=== PATIENT | male | born 1940 | race Caucasian/White ===

== ENCOUNTER → 2016-08-11 | Outpatient (CLI) | payer MEDICARE ==
--- NOTE | 2016-08-11 13:28 | CT ---
EXAMINATION TYPE: CT abdomen pelvis wo con DATE OF EXAM: 08/11/2016 12:40 PM COMPARISON: 01/05/2015 HISTORY: 76-year-old male complains of episode of gross hematuria and passing [address] DLP: 1289 mGycm. Automated exposure control for dose reduction was used. TECHNIQUE: Contiguous axial scanning of the abdomen and pelvis without IV contrast. Coronal and sagit micaela reconstructions performed. FINDINGS: The heart is normal size without pericardial effusion. Coronary vessel calcifications are present and are remarkable for coronary artery disease. There is centrilobular emphysema and chronic interstitial changes redemonstrated at the lung bases. C hronic scarring in the inferior lingula. Lower descending thoracic aorta is ectatic at 2.6 cm. Noncontrast appearance of the liver, adrenal glands, right kidney, and pancreas show no gross abnorma lity. Ongoing splenomegaly now measuring 16.9 cm versus 16.7 cm, previously. In the left kidney, there are 4 nonobstructive calculi, largest measuring 5 mm. No hydronephrosis on either side or suspicious calcification along the course of either ureter. No dilated small bowel, free fluid, or free air. No mesenteric or retroperitoneal lymphadenopathy. Mild overall stool burden without pericolonic inflammatory change. 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 Moderate atherosclerotic changes throughout the abdominal aorta with mild aneurysm measuring up to 3. 1 cm, axial image 84 and sagittal image 68 not significantly changed from prior. 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 Bladder is urine distended. Lobulated enlargement of the prostate gland measuring up to 6.3 cm wide w ith posterior impression on the bladder base multiple surgical clips along the pelvic sidewall/iliac chains. No suspicious lymphadenopathy seen. Bones: Mild degenerative changes of the hips. Additional degenerated dextroconvex scoliosis of the gaby mbar spine. No osseous destructive process. IMPRESSION: 1. Nonobstructive left-sided nephrolithiasis measuring up to 5 mm. No hydronephrosis on either side. 2. Prostatomegaly (6.3 cm wide) with lobulated impression onto the posterior bladder base. Further c linical correlation recommended given patient's history of previous prostate cancer. Status post pelv ic lymph node dissection. 3. 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
== END | disposition home or self-care (01) ==
LOC: RADCTMAIN 10:53
PROVIDERS: ATTEND Urology
DX: N20.0 Calculus of kidney (principal); N40.1 Benign prostatic hyperplasia with lower urinary tract symptoms; R16.1 Splenomegaly, not elsewhere classified; Z85.46 Personal history of malignant neoplasm of prostate; Z98.890 Other specified postprocedural states
CPT/HCPCS: 74176; 82565; 84520

== ENCOUNTER → 2016-12-25 | Outpatient (CLI) | payer MEDICARE ==
--- NOTE | 2016-12-25 12:59 | CT ---
EXAMINATION TYPE: CT chest w con DATE OF EXAM: 12/25/2016 COMPARISON: Prior CT chest dated 12/05/2014 HISTORY: Shortness of breath with history of prostate cancer CT DLP: 744 mGycm Automated exposure control for dose reduction was used. CONTRAST: CT scan of the chest is performed with IV Contrast, patient injected with 50 mL of Visipaque 320. FINDINGS: LUNGS: There is extensive emphysematous change within the lungs. No endobronchial lesion, pleural or pericardial effusion. MEDIASTINUM: There are no greater than 1 cm hilar or mediastinal lymph nodes. There are coronary art toshia calcifications present. No pericardial effusion is seen. AORTA: No additional significant abnormality is seen. OTHER: Patient is post cholecystectomy. Suspect the spleen is enlarged IMPRESSION: Severe emphysema. Coronary artery disease. Splenomegaly. Noncontrast exam.
== END | disposition home or self-care (01) ==
LOC: RADCTMAIN 10:37
PROVIDERS: ATTEND Internal Medicine Critical Care Medicine
DX: J43.9 Emphysema, unspecified (principal); I25.10 Atherosclerotic heart disease of native coronary artery without angina pectoris; R16.1 Splenomegaly, not elsewhere classified
CPT/HCPCS: 82565; 84520; 71260; 36415; Q9967

== ENCOUNTER → 2017-07-13 | Outpatient (CLI) | payer MEDICARE | END | disposition home or self-care (01) | LOC: LABWHC1 15:36 | PROVIDERS: ATTEND Radiology Radiation Oncology | DX: C61 Malignant neoplasm of prostate (principal) | CPT/HCPCS: 36415; 84153 ==

== ENCOUNTER 2017-09-30 08:33 | Emergency (ER) | payer MEDICARE ==
[2017-09-30 08:37] VITALS: BP 174/73; PULSE 89; RESP 18; TEMP 97.5
[2017-09-30] MEDS ORDERED: HYDROcodone/APAP 5-325MG 1 EACH TAB PO STA (08:44)
--- NOTE | 2017-09-30 08:46 | ED ---
General Adult HPI - General Chief complaint: Back Pain/Injury Stated complaint: Rib Pain Time Seen by Provider: 09/30/17 08:39 Source: patient, family, RN notes reviewed Mode of arrival: wheelchair Limitations: no limitations - History of Present Illness Initial comments: Patient 77-year-old male presented emergency room today with chief complaint of injury to the right ribs. He admits that 2 days ago he was leaning over side of his boat to grab something and felt increased pain in the right side of the ribs. He states that since that time his had pain is worse with certain movements. He denies any shortness of breath. Denies any bruising to the area. States been using Aleve for the pain with little relief. Patient states having a difficult time sleeping at night due to pain. Patient denies any recent fever, chills, shortness of breath, chest pain, back pain, abdominal pain , nausea or vomiting, numbness or tingling, headaches or visual changes, or any other complaints. - Related Data Home Medications Medication Instructions Recorded Confirmed Atorvastatin [Lipitor] 10 mg PO HS 01/21/14 03/08/16 LORazepam [Ativan] 0.5 mg PO TID PRN 01/21/14 03/08/16 Sertraline [Zoloft] 25 mg PO HS 01/21/14 03/08/16 Vits A,C,E/Lutein/Minerals 1 tab PO DAILY 01/21/14 03/08/16 [Ocuvite with Lutein Tablet] amLODIPine [Norvasc] 10 mg PO DAILY 01/21/14 03/08/16 Naproxen Sodium [Aleve] 220 mg PO Q12HR PRN 12/06/14 03/08/16 [place]-3 Fatty Acids [[place]-3] 2,000 mg PO DAILY 12/06/14 03/08/16 Gabapentin [Neurontin] 100 mg PO BID 03/08/16 03/08/16 Metoprolol Succinate (ER) [Toprol 25 mg PO DAILY 03/08/16 03/08/16 Xl] Pantoprazole Sodium [Protonix] 40 mg PO DAILY 03/08/16 03/08/16 Previous Rx's Medication Instructions Recorded Hydrocodone/Acetaminophen [[place] 1 tab PO Q6HR PRN #25 tab 03/08/16 5-325] Hydrocodone/Acetaminophen [[place] 1 each PO Q6HR PRN #12 tab 09/30/17 5-325] Allergies Allergy/AdvReac Type Severity Reaction Status Date / Time No Known Allergies Allergy Verified 09/30/17 08:38 Review of Systems ROS Statement: Those systems with pertinent positive or pertinent negative responses have been documented in the HPI. ROS Other: All systems not noted in ROS Statement are negative. Past Medical History Past Medical History: Cancer, Chest Pain / Angina, COPD, Hearing Disorder / Deafness, Hyperlipidemia, Hypertension, Osteoarthritis (OA), Prostate Disorder, Pulmonary Embolus (PE) Additional Past Medical History / Comment(s): interstitial lung disease, pulmonary fibrosis, prostate cA, RECENT KIDNEY STONES, UNABLE TO WEAR CPAP, USES O2 @2L AT NIGHT History of Any Multi-Drug Resistant Organisms: None Reported Past Surgical History: Appendectomy, Cholecystectomy, Heart Catheterization, Hernia Repair, Joint Replacement, Orthopedic Surgery Additional Past Surgical History / Comment(s): LT HAND SURGERY- PARTIAL AMP. ON TWO FINGERS,. bilateral knee surgery, RT CATARACT, heart catheterizationx2, prostate biopsy, colonoscopy. ELBOW REPLACEMENTS Past Anesthesia/Blood Transfusion Reactions: No Reported Reaction Past Psychological History: Anxiety, Depression Smoking Status: Former smoker Past Alcohol Use History: None Reported Past Drug Use History: None Reported - Past Family History Brother(s) Family Medical History: Cancer Additional Family Medical History / Comment(s): ONE BROTHER HAD LUNG CA & ANOTHER HAD MELANOMA Mother Family Medical History: AICD/Pacemaker Father Family Medical History: No Reported History Sister(s) Family Medical History: No Reported History General Exam - General Exam Comments Initial Comments: General: The patient is awake and alert, in no distress, and does not appear acutely ill. Eye: Pupils are equal, round and reactive to light, extra-ocular movements are intact. No nystagmus. There is normal conjunctiva bilaterally. No signs of icterus. Ears, nose, mouth and throat: There are moist mucous membranes and no oral lesions. Neck: The neck is supple, there is no tenderness or JVD. Cardiovascular: There is a regular rate and rhythm. No murmur, rub or gallop is appreciated. Respiratory: Lungs are clear to auscultation, respirations are non-labored, breath sounds are equal. No wheezes, stridor, rales, or rhonchi. Gastrointestinal: Soft, non-distended, non-tender abdomen without masses or organomegaly noted. There is no rebound or guarding present. No CVA tenderness. Musculoskeletal: Patient has good range of motion. Patient no bruising over the right side of the ribs. Tender over the lateral aspect of right ribs on palpation. Strength 5/5. Sensation intact. Pulses equal bilaterally 2+. Neurological: A&O x 3. CN II-XII intact, There are no obvious motor or sensory deficits. Coordination appears grossly intact. Speech is normal. Skin: Skin is warm and dry and no rashes or lesions are noted. Psychiatric: Cooperative, appropriate mood & affect, normal judgment. Limitations: no limitations Course Vital Signs 09/30/17 08:34 Temperature 97.5 F L Pulse Rate 89 Respiratory 18 Rate Blood Pressure 174/73 O2 Sat by Pulse 95 Oximetry Medical Decision Making - Medical Decision Making Patient's x-ray reviewed does show fractured eighth rib. Results were discussed with the patient. Patient will be given a short prescription of [place] to go home with for pain. He is advised follow-up family doctor. Will be given incentive spirometer. Advised return if symptoms increase or worsen. Disposition Clinical Impression: Rib fracture Disposition: HOME SELF-CARE Condition: Good Instructions: Rib Fracture (ED) Additional Instructions: Please use medication as discussed. Please follow-up with family doctor in the next 2 days of symptoms have not improved. Please return to emergency room if the symptoms increase or worsen or for any other concerns. Prescriptions: Hydrocodone/Acetaminophen [[place] 5-325] 1 each PO Q6HR PRN #12 tab PRN Reason: Pain Is patient prescribed a controlled substance at d/c from ED?: Yes When asked, does pt state using other controlled substances?: No If prescribed controlled substance>3 days was MAPS reviewed?: Prescribed <3 Days If Rx opioid, was Start Talking consent form obtained?: Yes Referrals: Barrington Goyal Jr, DO [Primary Care Provider] - 1-2 days Time of Disposition: 09:30
--- NOTE | 2017-09-30 09:19 | XR ---
EXAMINATION TYPE: XR ribs RT w pa chest xray DATE OF EXAM: 09/30/2017 COMPARISON: NONE TECHNIQUE: Over the chest 5 views submitted submitted. HISTORY: Pain FINDINGS: The lungs are clear and there is no pneumothorax, pleural effusion, or focal pneumonia. Slight defo rmity of the anterior margin. IMPRESSION: 1. Growing for fracture anterior margin right eighth rib.
== END 2017-09-30 09:41 | disposition home or self-care (01) ==
LOC: EC 08:33
DX: S22.31XA Fracture of one rib, right side, initial encounter for closed fracture (principal); I20.9 Angina pectoris, unspecified; H91.90 Unspecified hearing loss, unspecified ear; E78.5 Hyperlipidemia, unspecified; I10 Essential (primary) hypertension; F41.9 Anxiety disorder, unspecified; F32.9 Major depressive disorder, single episode, unspecified; M19.90 Unspecified osteoarthritis, unspecified site; Z87.891 Personal history of nicotine dependence; Z86.711 Personal history of pulmonary embolism; Z85.46 Personal history of malignant neoplasm of prostate; Z90.49 Acquired absence of other specified parts of digestive tract; Z98.890 Other specified postprocedural states; Z79.899 Other long term (current) drug therapy; X58.XXXA Exposure to other specified factors, initial encounter; Y93.89 Activity, other specified
CPT/HCPCS: 99283

== ENCOUNTER → 2017-11-13 | Outpatient (CLI) | payer MEDICARE | END | disposition home or self-care (01) | LOC: LABWHC1 13:29 | PROVIDERS: ATTEND Radiology Radiation Oncology | DX: C61 Malignant neoplasm of prostate (principal) | CPT/HCPCS: 36415; 84153; 84403 ==

== ENCOUNTER → 2018-02-18 | Outpatient (CLI) | payer MEDICARE ==
[2018-02-18 16:30] LABS: LDL Cholesterol,Calculated 102.8 mg/dL (0.0-131.0); VLDL Calculation 21.2 mg/dL (5.00-40.00)
[2018-02-18 16:54] LABS: Prostate Specific Antigen 0.2 ng/mL (0.0-6.5)
== END ==
LOC: LABWHC1 08:36
PROVIDERS: ATTEND Radiology Radiation Oncology
DX: E78.5 Hyperlipidemia, unspecified (principal); C61 Malignant neoplasm of prostate
CPT/HCPCS: 36415; 80061; 84153; 84403

== ENCOUNTER → 2018-07-18 | Outpatient (CLI) | payer MEDICARE | END | disposition home or self-care (01) | LOC: LABWHC1 13:10 | PROVIDERS: ATTEND Radiology Radiation Oncology | DX: C61 Malignant neoplasm of prostate (principal); Z92.3 Personal history of irradiation | CPT/HCPCS: 36415; 84153 ==

== ENCOUNTER 2018-08-17 12:21 | Emergency (ER) | payer MEDICARE ==
--- NOTE | 2018-08-17 12:51 | ED ---
Extremity Problem HPI - General Chief complaint: Extremity Problem,Nontraumatic Stated complaint: LEFT ANKLE PAIN, BOTTOM OF FEET Time Seen by Provider: 08/17/18 12:32 Source: patient, RN notes reviewed, old records reviewed Mode of arrival: ambulatory Limitations: no limitations - History of Present Illness Initial comments: Patient is a 78-year-old male who presents emergency department today for evaluation for pain over bilateral feet, states that his Neurontin is not working for his general neuropathy. He also complains of a rash and significant tenderness to palpation over the left ankle. Patient states is due to some swelling has been worsening over the past 3 days. He saw his general practitioner and had x-ray of the ankle which was normal. He was discharged with some cream to apply over the rash site. He has had no blistering. He states that the rash started this week when he was trimming trees in his yard. He denies any known insect bites or exposure to poison oak or trees. Patient states that he feels like the skin is stretching. He does have a history of blood clots, not on blood thinners at this time. Patient denies any chest pain or shortness of breath. - Related Data Home Medications Medication Instructions Recorded Confirmed Atorvastatin [Lipitor] 10 mg PO HS 01/21/14 03/08/16 LORazepam [Ativan] 0.5 mg PO TID PRN 01/21/14 03/08/16 Sertraline [Zoloft] 25 mg PO HS 01/21/14 03/08/16 Vits A,C,E/Lutein/Minerals 1 tab PO DAILY 01/21/14 03/08/16 [Ocuvite with Lutein Tablet] amLODIPine [Norvasc] 10 mg PO DAILY 01/21/14 03/08/16 Naproxen Sodium [Aleve] 220 mg PO Q12HR PRN 12/06/14 03/08/16 [place]-3 Fatty Acids [[place]-3] 2,000 mg PO DAILY 12/06/14 03/08/16 Gabapentin [Neurontin] 100 mg PO BID 03/08/16 03/08/16 Metoprolol Succinate (ER) [Toprol 25 mg PO DAILY 03/08/16 03/08/16 Xl] Pantoprazole Sodium [Protonix] 40 mg PO DAILY 03/08/16 03/08/16 Previous Rx's Medication Instructions Recorded Hydrocodone/Acetaminophen [[place] 1 tab PO Q6HR PRN #25 tab 03/08/16 5-325] Hydrocodone/Acetaminophen [[place] 1 each PO Q6HR PRN #12 tab 09/30/17 5-325] Cephalexin [Keflex] 500 mg PO Q6HR 7 Days 08/17/18 Gabapentin [Neurontin] 300 mg PO BID #20 cap 08/17/18 HYDROcodone/APAP 5-325MG [[place] 1 tab PO Q6HR PRN #6 tab 08/17/18 5-325] Allergies Allergy/AdvReac Type Severity Reaction Status Date / Time No Known Allergies Allergy Verified 09/30/17 08:38 Review of Systems ROS Statement: Those systems with pertinent positive or pertinent negative responses have been documented in the HPI. ROS Other: All systems not noted in ROS Statement are negative. Past Medical History Past Medical History: Cancer, Chest Pain / Angina, COPD, Hearing Disorder / Deafness, Hyperlipidemia, Hypertension, Osteoarthritis (OA), Prostate Disorder, Pulmonary Embolus (PE) Additional Past Medical History / Comment(s): interstitial lung disease, pulmonary fibrosis, prostate cA, RECENT KIDNEY STONES, UNABLE TO WEAR CPAP, USES O2 @2L AT NIGHT History of Any Multi-Drug Resistant Organisms: None Reported Past Surgical History: Appendectomy, Cholecystectomy, Heart Catheterization, Hernia Repair, Joint Replacement, Orthopedic Surgery Additional Past Surgical History / Comment(s): LT HAND SURGERY- PARTIAL AMP. ON TWO FINGERS,. bilateral knee surgery, RT CATARACT, heart catheterizationx2, prostate biopsy, colonoscopy. ELBOW REPLACEMENTS Past Anesthesia/Blood Transfusion Reactions: No Reported Reaction Past Psychological History: Anxiety, Depression Smoking Status: Former smoker Past Alcohol Use History: None Reported Past Drug Use History: None Reported - Past Family History Brother(s) Family Medical History: Cancer Additional Family Medical History / Comment(s): ONE BROTHER HAD LUNG CA & ANOTHER HAD MELANOMA Mother Family Medical History: AICD/Pacemaker Father Family Medical History: No Reported History Sister(s) Family Medical History: No Reported History General Exam - General Exam Comments Initial Comments: This is a 78-year-old male. Alert and oriented. No significant distress. Limitations: no limitations General appearance: alert, in no apparent distress Head exam: Present: atraumatic, normocephalic, normal inspection Eye exam: Present: normal appearance, PERRL, EOMI. Absent: scleral icterus, conjunctival injection, periorbital swelling ENT exam: Present: normal exam, mucous membranes moist Neck exam: Present: normal inspection. Absent: tenderness, meningismus, lymphadenopathy Respiratory exam: Present: normal lung sounds bilaterally. Absent: respiratory distress, wheezes, rales, rhonchi, stridor Cardiovascular Exam: Present: regular rate, normal rhythm, normal heart sounds. Absent: systolic murmur, diastolic murmur, rubs, gallop, clicks GI/Abdominal exam: Present: soft, normal bowel sounds. Absent: distended, tenderness, guarding, rebound, rigid Left Lower Leg exam: Present: normal inspection, full ROM Ankle exam: Present: erythema (Patient has minimal erythema, no blistering noted over the anterior aspect of the ankle. Area measures 4 cm x 5 cm.). Absent: normal inspection Foot/Toe exam: Present: normal inspection, full ROM Neurovascular tendon exam: Present: no vascular compromise Gait: observed and normal Back exam: Present: normal inspection Neurological exam: Present: alert, oriented X3, CN II-XII intact Psychiatric exam: Present: normal affect, normal mood Course Vital Signs 08/17/18 08/17/18 12:22 14:01 Temperature 97.7 F 97.8 F Pulse Rate 95 88 Respiratory 18 16 Rate Blood Pressure 153/85 131/81 O2 Sat by Pulse 92 L 93 L Oximetry Medical Decision Making - Medical Decision Making This Patient is a 78-year-old male with history of diabetic neuropathy presents emergency with left ankle pain, redness irritation and swelling. He also complains of bilateral buttock see pain. Discussed that likely related to his neuropathy. Discussed increasing his gabapentin. Patient reports that he had some redness over the left ankle after trimming trees. There is no blisters or concern at this time for poison [place]. However Patient may have a superficial cellulitis with the area of redness. White blood cell count was mildly elevated 14,000. An ultrasound was negative for DVT. Patient was given a dose of IV to cover for cellulitis. We'll discharge the Patient with antibiotics for cellulitis and discussed increasing scalp. We'll discharge the Patient with a starter pack of Tylenol codeine. Discussed he needs follow-up with his primary care doctor on Sunday for reevaluation. All questions answered. - Lab Data Result diagrams: 08/17/18 13:01 05/04/19 13:01 Lab Results 08/17/18 08/17/18 Range/Units 13:01 13:01 WBC 14.5 H (3.8-10.6) k/uL RBC 5.05 (4.30-5.90) m/uL Hgb 15.1 (13.0-17.5) gm/dL Hct 44.0 (39.0-53.0) % MCV 87.1 (80.0-100.0) fL MCH 29.9 (25.0-35.0) pg MCHC 34.3 (31.0-37.0) g/dL RDW 17.8 H (11.5-15.5) % Plt Count 436 (150-450) k/uL Neutrophils % 80 % Lymphocytes % 10 % Monocytes % 4 % Eosinophils % 3 % Basophils % 1 % Neutrophils # 11.6 H (1.3-7.7) k/uL Lymphocytes # 1.4 (1.0-4.8) k/uL Monocytes # 0.5 (0-1.0) k/uL Eosinophils # 0.4 (0-0.7) k/uL Basophils # 0.2 (0-0.2) k/uL Poikilocytosis Slight Anisocytosis Slight Sodium 144 (137-145) mmol/L Potassium 4.9 (3.5-5.1) mmol/L Chloride 109 H (98-107) mmol/L Carbon Dioxide 29 (22-30) mmol/L Anion Gap 6 mmol/L BUN 33 H (9-20) mg/dL Creatinine 1.66 H (0.66-1.25) mg/dL Est GFR (CKD-EPI)AfAm 45 (>60 ml/min/1.73 sqM) Est GFR (CKD-EPI)NonAf 39 (>60 ml/min/1.73 sqM) Glucose 89 (74-99) mg/dL Calcium 9.6 (8.4-10.2) mg/dL Total Bilirubin 1.4 H (0.2-1.3) mg/dL AST 43 (17-59) U/L ALT 57 (21-72) U/L Alkaline Phosphatase 144 H (38-126) U/L Total Protein 6.9 (6.3-8.2) g/dL Albumin 4.4 (3.5-5.0) g/dL - Radiology Data Radiology results: report reviewed Ultrasound is negative for DVT in the left leg. Disposition Clinical Impression: Cellulitis of left ankle, Neuropathy Disposition: HOME SELF-CARE Condition: Good Instructions (If sedation given, give patient instructions): Diabetic Peripheral Neuropathy (ED), Cellulitis (ED) Additional Instructions: Patient has acute the feet up and elevated. Take the medications as prescribed. Return to emergency department if any alarming signs or symptoms occur. Prescriptions: Cephalexin [Keflex] 500 mg PO Q6HR 7 Days Gabapentin [Neurontin] 300 mg PO BID #20 cap HYDROcodone/APAP 5-325MG [[place] 5-325] 1 tab PO Q6HR PRN #6 tab PRN Reason: Pain Is patient prescribed a controlled substance at d/c from ED?: Yes If prescribed controlled substance>3 days was MAPS reviewed?: Prescribed <3 Days If opioid is for acute pain is fill amount 7 days or less?: Yes If Rx opioid, was Start Talking consent form obtained?: Yes Referrals: Barrington Goyal Jr, [Primary Care Provider] - 1-2 days Time of Disposition: 14:20
[2018-08-17 13:13] LABS: Anisocytosis Slight; Basophils # (A) 0.2 k/uL (0-0.2); Basophils % (A) 1 %; Eosinophils # (A) 0.4 k/uL (0-0.7); Eosinophils % (A) 3 %; HGB 15.1 gm/dL (13.0-17.5); Lymphocytes # (A) 1.4 k/uL (1.0-4.8); Lymphocytes % (A) 10 %; MCH 29.9 pg (25.0-35.0); MCHC 34.3 g/dL (31.0-37.0); MCV 87.1 fL (80.0-100.0); Mean Platelet Volume 9.5; Monocytes # (A) 0.5 k/uL (0-1.0); Monocytes % (A) 4 %; Neutrophils # (A) 11.6 k/uL (1.3-7.7); Neutrophils % (A) 80 %; Platelet Count 436 k/uL (150-450); Poikilocytosis Slight; RBC 5.05 m/uL (4.30-5.90); RDW 17.8 % (11.5-15.5); WBC 14.5 k/uL (3.8-10.6)
[2018-08-17 13:22] LABS: Albumin 4.4 g/dL (3.5-5.0); Calcium 9.6 mg/dL (8.4-10.2); Potassium 4.9 mmol/L (3.5-5.1); Total Bilirubin 1.4 mg/dL (0.2-1.3); Total Protein 6.9 g/dL (6.3-8.2)
--- NOTE | 2018-08-17 13:46 | US ---
EXAMINATION TYPE: US venous doppler duplex LE LT DATE OF EXAM: 08/17/2018 1:35 PM COMPARISON: NONE CLINICAL HISTORY: Pain. Left lateral leg pain, and bottom of left foot pain. SIDE PERFORMED: Left TECHNIQUE: The lower extremity deep venous system is examined utilizing real time linear array sonog sergio with graded compression, doppler sonography and color-flow sonography. VESSELS IMAGED: External Iliac Vein (EIV) Common Femoral Vein Deep Femoral Vein Greater Saphenous Vein * Femoral Vein Popliteal Vein Small Saphenous Vein * Proximal Calf Veins (* superficial vessels) Left Leg: Negative for DVT No popliteal fossa lesion is seen. IMPRESSION: THIS EXAMINATION IS NEGATIVE FOR DVT IN THE LEFT LEG.
[2018-08-17] MEDS ORDERED: HYDROcodone/APAP 10-325MG 1 EACH TAB PO ONE (14:02)
[2018-08-17 14:03] VITALS: PULSE 88; RESP 16
[2018-08-17] MEDS ORDERED: ceFAZolin IN SWFI 2 GM/20 ML SYRINGE IVP STA (14:19)
[2018-08-17 15:27] VITALS: BP 134/82; TEMP 98
== END 2018-08-17 15:20 | disposition home or self-care (01) ==
LOC: EC 12:21
DX: L03.116 Cellulitis of left lower limb (principal); G62.9 Polyneuropathy, unspecified; D72.829 Elevated white blood cell count, unspecified; E78.5 Hyperlipidemia, unspecified; I10 Essential (primary) hypertension; M19.90 Unspecified osteoarthritis, unspecified site; F41.9 Anxiety disorder, unspecified; F32.9 Major depressive disorder, single episode, unspecified; Z85.46 Personal history of malignant neoplasm of prostate; Z87.891 Personal history of nicotine dependence; Z95.818 Presence of other cardiac implants and grafts; Z96.89 Presence of other specified functional implants; Z79.899 Other long term (current) drug therapy
CPT/HCPCS: 36415; 80053; 85025; 93971; 99284; 96374; J0690

== ENCOUNTER 2018-08-19 04:00 | Emergency (ER) | payer MEDICARE ==
--- NOTE | 2018-08-19 04:15 | ED ---
Abdominal Pain HPI - General Chief Complaint: Abdominal Pain Stated Complaint: Abdominal Pain Time Seen by Provider: 08/19/18 04:13 Source: patient, family Mode of arrival: ambulatory Limitations: no limitations - History of Present Illness Initial Comments: Resulted is a 78-year-old gentleman who presents to the emergency department today for evaluation of abdominal cramping. Patient reports that he occasionally has abdominal cramping which usually resolves that he drinks of baking soda and water. Patient was seen and evaluated in our hospital earlier in the week and diagnosed with a cellulitis of the lower extremities. He is currently taking Keflex. Patient reports that he woke up tonight and was having some crampy abdominal pain similar to previous episodes, he drinks of baking soda water but the cramping continued he then read the side effects of the antibiotics and read that if there is any abdominal pain he should be evaluated so he decided to come the hospital. Patient reports that by the time he arrived in the hospital his pain has improved significantly he is now resting much more comfortably. - Related Data Home Medications Medication Instructions Recorded Confirmed LORazepam [Ativan] 0.5 mg PO TID PRN 01/21/14 08/20/18 Sertraline [Zoloft] 25 mg PO HS 01/21/14 08/20/18 Vits A,C,E/Lutein/Minerals 1 tab PO DAILY 01/21/14 08/20/18 [Ocuvite with Lutein Tablet] amLODIPine [Norvasc] 10 mg PO DAILY 01/21/14 08/20/18 Gabapentin [Neurontin] 100 mg PO QID 03/08/16 08/20/18 Metoprolol Succinate (ER) [Toprol 25 mg PO DAILY 03/08/16 08/20/18 Xl] Pantoprazole Sodium [Protonix] 40 mg PO DAILY 03/08/16 08/20/18 Pravastatin Sodium [Pravachol] 20 mg PO DAILY 08/20/18 08/20/18 Previous Rx's Medication Instructions Recorded Cephalexin [Keflex] 500 mg PO Q6HR 7 Days 08/17/18 Allergies Allergy/AdvReac Type Severity Reaction Status Date / Time No Known Allergies Allergy Verified 08/20/18 09:29 Review of Systems ROS Statement: Those systems with pertinent positive or pertinent negative responses have been documented in the HPI. ROS Other: All systems not noted in ROS Statement are negative. Past Medical History Past Medical History: Cancer, Chest Pain / Angina, COPD, Hearing Disorder / Deafness, Hyperlipidemia, Hypertension, Osteoarthritis (OA), Prostate Disorder, Pulmonary Embolus (PE) Additional Past Medical History / Comment(s): interstitial lung disease, pulmonary fibrosis, prostate cA, RECENT KIDNEY STONES, UNABLE TO WEAR CPAP, USES O2 @2L AT NIGHT History of Any Multi-Drug Resistant Organisms: None Reported Past Surgical History: Appendectomy, Cholecystectomy, Heart Catheterization, Hernia Repair, Joint Replacement, Orthopedic Surgery Additional Past Surgical History / Comment(s): LT HAND SURGERY- PARTIAL AMP. ON TWO FINGERS,. bilateral knee surgery, RT CATARACT, heart catheterizationx2, prostate biopsy, colonoscopy. ELBOW REPLACEMENTS Past Anesthesia/Blood Transfusion Reactions: No Reported Reaction Past Psychological History: Anxiety, Depression Smoking Status: Former smoker Past Alcohol Use History: None Reported Past Drug Use History: None Reported - Past Family History Brother(s) Family Medical History: Cancer Additional Family Medical History / Comment(s): ONE BROTHER HAD LUNG CA & ANOTHER HAD MELANOMA Mother Family Medical History: AICD/Pacemaker Father Family Medical History: No Reported History Sister(s) Family Medical History: No Reported History General Exam - General Exam Comments Initial Comments: Physical Exam GENERAL: Patient is well-developed and well-nourished, obese gentleman Patient is nontoxic and well-hydrated and is in no distress. HENT: Normocephalic, Atraumatic. EYES: PERRL, EOMI PULMONARY: Unlabored respirations. No audible rales rhonchi or wheezing was noted. CARDIOVASCULAR: RRR ABDOMEN: Soft and nontender with normal bowel sounds. No tenderness to deep palpation in all 4 quadrants SKIN: Improving cellulitis on left lower extremity : Deferred NEUROLOGIC: Patient is alert and oriented x3. Moving all extremities spontaneously MUSCULOSKELETAL: Normal extremities with adequate strength and full range of motion. No lower extremity swelling or edema. No calf tenderness. PSYCHIATRIC: Normal psychiatric evaluation. Limitations: no limitations Course Vital Signs 08/19/18 08/19/18 08/19/18 04:03 06:07 07:11 Temperature 97.6 F 97.8 F Pulse Rate 96 83 96 Respiratory 18 16 18 Rate Blood Pressure 158/91 150/81 145/82 O2 Sat by Pulse 98 100 94 L Oximetry Medical Decision Making - Medical Decision Making The patient was seen and evaluated, history was obtained from the patient and t he and review of medical record This is a 78-year-old gentleman who presents today for evaluation of cramping abdominal pain that lasted approximately an hour and resolved prior to arrival Patient was concerned because he is currently on antibiotics and was worried that the abdominal cramping may be related to the antibiotics Patient is awake alert oriented hemodynamically stable in no acute distress Labs and imaging were ordered Labs with leukocytosis with a white count of 11.5 slightly related to cellulitis of the lower extremity Patient's resting comfortably at this time, he has been pain-free during his stay and would like to be discharged home at this time. - Lab Data Result diagrams: 08/19/18 04:20 08/19/18 04:20 Lab Results 08/19/18 08/19/18 08/19/18 Range/Units 04:20 04:20 05:50 WBC 11.5 H (3.8-10.6) k/uL RBC 5.25 (4.30-5.90) m/uL Hgb 15.4 (13.0-17.5) gm/dL Hct 45.5 (39.0-53.0) % MCV 86.5 (80.0-100.0) fL MCH 29.3 (25.0-35.0) pg MCHC 33.9 (31.0-37.0) g/dL RDW 18.6 H (11.5-15.5) % Plt Count 454 H (150-450) k/uL Neutrophils % 76 % Lymphocytes % 14 % Monocytes % 3 % Eosinophils % 3 % Basophils % 1 % Neutrophils # 8.8 H (1.3-7.7) k/uL Lymphocytes # 1.6 (1.0-4.8) k/uL Monocytes # 0.4 (0-1.0) k/uL Eosinophils # 0.3 (0-0.7) k/uL Basophils # 0.2 (0-0.2) k/uL Hyperchromasia Slight Poikilocytosis Moderate Anisocytosis Slight Sodium 142 (137-145) mmol/L Potassium 4.6 (3.5-5.1) mmol/L Chloride 106 (98-107) mmol/L Carbon Dioxide 29 (22-30) mmol/L Anion Gap 7 mmol/L BUN 36 H (9-20) mg/dL Creatinine 1.76 H (0.66-1.25) mg/dL Est GFR (CKD-EPI)AfAm 42 (>60 ml/min/1.73 sqM) Est GFR (CKD-EPI)NonAf 37 (>60 ml/min/1.73 sqM) Glucose 119 H (74-99) mg/dL Calcium 9.6 (8.4-10.2) mg/dL Total Bilirubin 1.3 (0.2-1.3) mg/dL AST 40 (17-59) U/L ALT 49 (21-72) U/L Alkaline Phosphatase 152 H (38-126) U/L Total Protein 7.0 (6.3-8.2) g/dL Albumin 4.4 (3.5-5.0) g/dL Amylase 82 (30-110) U/L Lipase 104 (23-300) U/L Urine Color Yellow Urine Appearance Clear (Clear) Urine pH 6.0 (5.0-8.0) Ur Specific [place] 1.016 (1.001-1.035) Urine Protein 1+ H (Negative) Urine Glucose (UA) Negative (Negative) Urine Ketones Negative (Negative) Urine Blood Negative (Negative) Urine Nitrite Negative (Negative) Urine Bilirubin Negative (Negative) Urine Urobilinogen <2.0 (<2.0) mg/dL Ur Leukocyte Esterase Negative (Negative) Urine RBC 2 (0-5) /hpf Urine WBC 1 (0-5) /hpf Urine Mucus Rare H (None) /hpf Disposition Clinical Impression: Abdominal pain Disposition: HOME SELF-CARE Condition: Stable Instructions (If sedation given, give patient instructions): Abdominal Pain (ED) Is patient prescribed a controlled substance at d/c from ED?: No Referrals: Barrington Goyal Jr, DO [Primary Care Provider] - 1-2 days
[2018-08-19 04:45] LABS: Anisocytosis Slight; Basophils # (A) 0.2 k/uL (0-0.2); Basophils % (A) 1 %; Eosinophils # (A) 0.3 k/uL (0-0.7); Eosinophils % (A) 3 %; HCT 45.5 % (39.0-53.0); HGB 15.4 gm/dL (13.0-17.5); Hyperchromasia Slight; Lymphocytes # (A) 1.6 k/uL (1.0-4.8); Lymphocytes % (A) 14 %; MCH 29.3 pg (25.0-35.0); MCHC 33.9 g/dL (31.0-37.0); MCV 86.5 fL (80.0-100.0); Mean Platelet Volume 9.3; Monocytes # (A) 0.4 k/uL (0-1.0); Monocytes % (A) 3 %; Neutrophils # (A) 8.8 k/uL (1.3-7.7); Neutrophils % (A) 76 %; Platelet Count 454 k/uL (150-450); Poikilocytosis Moderate; RBC 5.25 m/uL (4.30-5.90); RDW 18.6 % (11.5-15.5); WBC 11.5 k/uL (3.8-10.6)
--- NOTE | 2018-08-19 05:02 | XR ---
EXAM: XR Abdomen, 2 Views CLINICAL HISTORY: ITS.REASON XR Reason: abdominal pain TECHNIQUE: Frontal view of the abdomen/pelvis with upright view of the abdomen. COMPARISON: No relevant prior studies available. IMPRESSION: No bowel obstruction. No free air. Mild dextroscoliosis. Multiple clips in the pelvis.
[2018-08-19 05:04] LABS: Albumin 4.4 g/dL (3.5-5.0); Calcium 9.6 mg/dL (8.4-10.2); Potassium 4.6 mmol/L (3.5-5.1); Total Bilirubin 1.3 mg/dL (0.2-1.3)
[2018-08-19 06:25] LABS: Appearance,Urine Clear (Clear); Bilirubin,Urine Negative (Negative); Blood,Urine Negative (Negative); Color,Urine Yellow; Glucose,Urine (UA) Negative (Negative); Ketones,Urine Negative (Negative); Leukocyte Esterase,Urine Negative (Negative); Mucus,Urine Rare /hpf; Nitrite,Urine Negative (Negative); Protein,Urine 1+ (Negative); RBC,Urine 2 /hpf (0-5); Specific Gravity,Urine 1.016 (1.001-1.035); Urobilinogen,Urine <2.0 mg/dL (<2.0); WBC,Urine 1 /hpf (0-5)
[2018-08-19 07:13] VITALS: BP 145/82; PULSE 96; RESP 18; TEMP 97.8
--- NOTE | 2018-08-21 01:33 | CDI ---
Documentation Clarification OP Dear Floresita SIMPSON, DO Please do addendum to ED report for missing HPI and Physical examination. Thank you, Sigrid Ann Calciner Operator Helper If you have any questions, please contact Hot Top Liner Helper at [phone] [facility]
== END 2018-08-19 07:12 | disposition home or self-care (01) ==
LOC: EC 04:00
DX: D72.829 Elevated white blood cell count, unspecified (principal); L03.115 Cellulitis of right lower limb; L03.116 Cellulitis of left lower limb; E78.5 Hyperlipidemia, unspecified; I10 Essential (primary) hypertension; M19.90 Unspecified osteoarthritis, unspecified site; F41.9 Anxiety disorder, unspecified; F32.9 Major depressive disorder, single episode, unspecified; Z87.442 Personal history of urinary calculi; Z95.818 Presence of other cardiac implants and grafts; Z96.629 Presence of unspecified artificial elbow joint; Z85.46 Personal history of malignant neoplasm of prostate; Z90.49 Acquired absence of other specified parts of digestive tract; Z87.891 Personal history of nicotine dependence; Z79.899 Other long term (current) drug therapy
CPT/HCPCS: 36415; 74018; 80053; 81001; 82150; 83690; 85025; 99284

== ENCOUNTER 2018-08-20 09:19 | Inpatient (IN) | payer MEDICARE ==
[2018-08-20] MEDS ORDERED: ONDANSETRON 4 MG/2 ML VIAL IVP STA (09:37)
[2018-08-20] MEDS ORDERED: MORPHINE SULFATE 4 MG/ML SYRINGE IV STA (09:37)
--- NOTE | 2018-08-20 09:42 | ED ---
General Adult HPI <Eber Abraham - Last Filed: 08/20/18 10:43> - General Source: patient, RN notes reviewed Mode of arrival: ambulatory <Cabrera Sharif - Last Filed: 08/20/18 10:46> - General Chief complaint: Abdominal Pain Stated complaint: Poss kidney stone Time Seen by Provider: 08/20/18 09:32 - History of Present Illness Initial comments: Patient 78-year-old male presented to the emergency room today with chief complaint of left-sided abdominal pain. Patient does not that he feels pain radiating down into left groin. Patient does admit to history of kidney stones presents unable to state if this is the same pain that is had in the past. Patient does admit that the pain started 3 days ago. Has been seen here in the emergency room twice for the same complaint. States that they did obtain x-rays just but did not see any abnormality. Patient states he felt well yesterday when he was discharged home. States she's had normal bowel movements. Doesn't feeling some nausea and has had no vomiting. Patient denies any other complaints or symptoms at this time. Patient denies any recent fever, chills, shortness of breath, chest pain, back pain, dysuria or hematuria, constipation or diarrhea, headaches or visual changes, or any other complaints. (Cabrera Sharif) - Related Data Home Medications Medication Instructions Recorded Confirmed LORazepam [Ativan] 0.5 mg PO TID PRN 01/21/14 08/20/18 Sertraline [Zoloft] 25 mg PO HS 01/21/14 08/20/18 Vits A,C,E/Lutein/Minerals 1 tab PO DAILY 01/21/14 08/20/18 [Ocuvite with Lutein Tablet] amLODIPine [Norvasc] 10 mg PO DAILY 01/21/14 08/20/18 Gabapentin [Neurontin] 100 mg PO QID 03/08/16 08/20/18 Metoprolol Succinate (ER) [Toprol 25 mg PO DAILY 03/08/16 08/20/18 Xl] Pantoprazole Sodium [Protonix] 40 mg PO DAILY 03/08/16 08/20/18 Pravastatin Sodium [Pravachol] 20 mg PO DAILY 08/20/18 08/20/18 Previous Rx's Medication Instructions Recorded Cephalexin [Keflex] 500 mg PO Q6HR 7 Days 08/17/18 Allergies Allergy/AdvReac Type Severity Reaction Status Date / Time No Known Allergies Allergy Verified 08/20/18 09:29 Review of Systems ROS Other: All systems not noted in ROS Statement are negative. <Eber Abraham - Last Filed: 08/20/18 10:43> ROS Other: All systems not noted in ROS Statement are negative. <Cabrera Sharif - Last Filed: 08/20/18 10:46> ROS Statement: Those systems with pertinent positive or pertinent negative responses have been documented in the HPI. Past Medical History Past Medical History: Cancer, Chest Pain / Angina, COPD, Hearing Disorder / Deafness, Hyperlipidemia, Hypertension, Osteoarthritis (OA), Prostate Disorder, Pulmonary Embolus (PE) Additional Past Medical History / Comment(s): interstitial lung disease, pulmonary fibrosis, prostate cA, RECENT KIDNEY STONES, UNABLE TO WEAR CPAP, USES O2 @2L AT NIGHT History of Any Multi-Drug Resistant Organisms: None Reported Past Surgical History: Appendectomy, Cholecystectomy, Heart Catheterization, H ernia Repair, Joint Replacement, Orthopedic Surgery Additional Past Surgical History / Comment(s): LT HAND SURGERY- PARTIAL AMP. ON TWO FINGERS,. bilateral knee surgery, RT CATARACT, heart catheterizationx2, prostate biopsy, colonoscopy. ELBOW REPLACEMENTS Past Anesthesia/Blood Transfusion Reactions: No Reported Reaction Past Psychological History: Anxiety, Depression Smoking Status: Former smoker Past Alcohol Use History: None Reported Past Drug Use History: None Reported - Past Family History Brother(s) Family Medical History: Cancer Additional Family Medical History / Comment(s): ONE BROTHER HAD LUNG CA & ANOTHER HAD MELANOMA Mother Family Medical History: AICD/Pacemaker Father Family Medical History: No Reported History Sister(s) Family Medical History: No Reported History <Cabrera Sharif - Last Filed: 08/20/18 10:46> General Exam <Cabrera Sharif - Last Filed: 08/20/18 10:46> - General Exam Comments Initial Comments: General: The patient is awake and alert, in no distress, and does not appear acutely ill. Eye: There is normal conjunctiva bilaterally. No signs of icterus. Ears, nose, mouth and throat: There are moist mucous membranes and no oral lesions. Neck: The neck is supple, there is no tenderness or JVD. Cardiovascular: There is a regular rate and rhythm. No murmur, rub or gallop is appreciated. Respiratory: Lungs are clear to auscultation, respirations are non-labored, br eath sounds are equal. No wheezes, stridor, rales, or rhonchi. Gastrointestinal: Admits soft on palpation. Patient does have tenderness to left lower quadrant. No rebound, guarding. Musculoskeletal: Normal ROM, no tenderness. Strength 5/5. Sensation intact. Radial Pulses equal bilaterally 2+. Neurological: A&O x 3. CN II-XII intact, There are no obvious motor or sensory deficits. Coordination appears grossly intact. Speech is normal. Skin: Skin is warm and dry and no rashes or lesions are noted. Psychiatric: Cooperative, appropriate mood & affect, normal judgment. (Cabrera Sharif) Course Vital Signs 08/20/18 09:21 Temperature 97.5 F L Pulse Rate 105 H Respiratory 24 Rate Blood Pressure 156/74 O2 Sat by Pulse 98 Oximetry Medical Decision Making - Lab Data Result diagrams: 08/20/18 09:40 08/20/18 09:40 <Eber Abraham - Last Filed: 08/20/18 10:43> - Lab Data Result diagrams: 08/20/18 09:40 08/20/18 09:40 <Cabrera Sharif - Last Filed: 08/20/18 10:46> - Medical Decision Making Patient reexamined and reevaluated by myself, Dr. Abraham. Patient is complaining of discomfort and does have moderate tenderness left lower flank region. Results reviewed. I do agree with PA findings. This includes all diagnostic interpretation and treatment plan. Case was discussed with Dr. Tay, who will admit his patient. He does recommend Ancef and nothing by mouth after midnight. (Eber Abraham) - Lab Data Lab Results 08/20/18 08/20/18 Range/Units 09:40 09:40 WBC 17.8 H (3.8-10.6) k/uL RBC 5.42 (4.30-5.90) m/uL Hgb 15.8 (13.0-17.5) gm/dL Hct 46.4 (39.0-53.0) % MCV 85.6 (80.0-100.0) fL MCH 29.2 (25.0-35.0) pg MCHC 34.1 (31.0-37.0) g/dL RDW 18.5 H (11.5-15.5) % Plt Count 552 H (150-450) k/uL Neutrophils % 83 % Lymphocytes % 9 % Monocytes % 3 % Eosinophils % 2 % Basophils % 1 % Neutrophils # 14.7 H (1.3-7.7) k/uL Lymphocytes # 1.6 (1.0-4.8) k/uL Monocytes # 0.5 (0-1.0) k/uL Eosinophils # 0.4 (0-0.7) k/uL Basophils # 0.2 (0-0.2) k/uL Hyperchromasia Slight Poikilocytosis Slight Anisocytosis Slight Sodium 143 (137-145) mmol/L Potassium 4.8 (3.5-5.1) mmol/L Chloride 106 (98-107) mmol/L Carbon Dioxide 29 (22-30) mmol/L Anion Gap 8 mmol/L BUN 38 H (9-20) mg/dL Creatinine 1.74 H (0.66-1.25) mg/dL Est GFR (CKD-EPI)AfAm 43 (>60 ml/min/1.73 sqM) Est GFR (CKD-EPI)NonAf 37 (>60 ml/min/1.73 sqM) Glucose 124 H (74-99) mg/dL Calcium 9.7 (8.4-10.2) mg/dL Total Bilirubin 1.5 H (0.2-1.3) mg/dL AST 65 H (17-59) U/L ALT 80 H (21-72) U/L Alkaline Phosphatase 161 H (38-126) U/L Total Protein 7.4 (6.3-8.2) g/dL Albumin 4.7 (3.5-5.0) g/dL Amylase 65 (30-110) U/L Lipase 64 (23-300) U/L Disposition <Eber Abraham - Last Filed: 08/20/18 10:43> Is patient prescribed a controlled substance at d/c from ED?: No Time of Disposition: 10:46 <Cabrera Sharif - Last Filed: 08/20/18 10:46> Clinical Impression: Kidney stone Disposition: ADMITTED IP TO THIS HOSP Condition: Stable Referrals: Barrington Goyal Jr, [Primary Care Provider] - 1-2 days
[2018-08-20] MEDS: SODIUM CHLORIDE 0.9% 1,000 ML IV STA (09:45)
[2018-08-20 10:13] LABS: Anisocytosis Slight; Basophils # (A) 0.2 k/uL (0-0.2); Basophils % (A) 1 %; Eosinophils # (A) 0.4 k/uL (0-0.7); Eosinophils % (A) 2 %; HCT 46.4 % (39.0-53.0); HGB 15.8 gm/dL (13.0-17.5); Hyperchromasia Slight; Lymphocytes # (A) 1.6 k/uL (1.0-4.8); Lymphocytes % (A) 9 %; MCH 29.2 pg (25.0-35.0); MCHC 34.1 g/dL (31.0-37.0); MCV 85.6 fL (80.0-100.0); Mean Platelet Volume 9.4; Monocytes # (A) 0.5 k/uL (0-1.0); Monocytes % (A) 3 %; Neutrophils # (A) 14.7 k/uL (1.3-7.7); Neutrophils % (A) 83 %; Platelet Count 552 k/uL (150-450); Poikilocytosis Slight; RBC 5.42 m/uL (4.30-5.90); RDW 18.5 % (11.5-15.5); WBC 17.8 k/uL (3.8-10.6)
[2018-08-20 10:14] LABS: Albumin 4.7 g/dL (3.5-5.0); Calcium 9.7 mg/dL (8.4-10.2); Potassium 4.8 mmol/L (3.5-5.1); Total Bilirubin 1.5 mg/dL (0.2-1.3); Total Protein 7.4 g/dL (6.3-8.2)
--- NOTE | 2018-08-20 10:23 | CT ---
EXAMINATION TYPE: CT abdomen pelvis wo con DATE OF EXAM: 08/20/2018 COMPARISON: 08/11/2016 HISTORY: 78-year-old male left lower quadrant pain with nausea. CT DLP: 996.4 mGycm. Automated exposure control for dose reduction was used. TECHNIQUE: Contiguous axial scanning of the abdomen and pelvis without IV contrast. Coronal and sagit micaela reconstructions performed. FINDINGS: Heart upper limits of normal in size without pericardial effusion. Coronary vessel calcifications are present. Emphysematous changes in the lower lungs with some mild bibasilar bronchiectasis. Ectatic lower descending thoracic aorta 2.9 cm. Moderate arthroscopic calcifications abdominal aorta with distal AAA and 3.6 cm versus 3.5 cm, previously. Left common iliac artery measures 1.8 cm versus 1.7 cm, previously. Right common iliac artery measures 1.9 cm, unchanged. Noncontrast appearance of the liver, adrenal glands, and pancreas show no gross abnormality. Gallbladder surgically absent. Ectatic cystic duct. Splenomegaly at 18.2 cm, increased from 16.9 cm, previously. Nonobstructive 3 mm right lower pole renal calculus. Punctate 2 mm calculi are present in the left ki dney. There is [id number]-[id number] left-sided hydronephrosis with a 5 mm calculus at the distal left ure ter. Moderate extravasating fluid is present along the left retroperitoneum tracking up to the level of the kidney and down to the iliac bifurcation with some fluid crossing the midline as well. No dilated small bowel or free air. Mild stool burden. No pericolonic inflammatory change. Moderate circumferential bladder wall thickening with mild surrounding fat stranding. Prostate gland enlargement 5.8 cm wide. Prior pelvic lymph node dissection. Bones: Mild degenerative changes at the hips. Facet arthropathy lower lumbar spine. Degenerated dextr oconvex scoliosis. Grade 1 retrolisthesis at L2-L3 and L3-L4. IMPRESSION: 1. A 5 mm calculus at the distal left ureter with obstructive uropathy. There is moderate extravasati ng fluid within the left retroperitoneum concentrated primarily along the level of the mid ureter sug gesting ureteral rupture and urine leak. 2. Slight progression of splenic megaly at 18.2 cm versus 16.9 cm, previously. 3. AAA at 3.6 cm versus 3.5 cm, previously. Ectatic common iliac arteries measure up to 1.9 cm redemo nstrated. 4. Moderate circumferential bladder wall thickening. Correlate to exclude cystitis. Findings may rela te to chronic bladder wall hypertrophy given prostatomegaly. Prior pelvic lymph node dissection.
[2018-08-20] MEDS ORDERED: HYDROmorphone 1 MG/ML 1 ML SYRINGE IVP STA (10:34)
[2018-08-20] MEDS ORDERED: ONDANSETRON 4 MG/2 ML VIAL IVP PRN (10:47)
[2018-08-20] MEDS ORDERED: NALOXONE 0.4 MG/ML 1 ML VIAL IV PRN (10:47)
[2018-08-20 12:57] LABS: Appearance,Urine Clear (Clear); Bacteria,Urine Rare /hpf; Bilirubin,Urine Negative (Negative); Blood,Urine Negative (Negative); Color,Urine Yellow; Glucose,Urine (UA) Negative (Negative); Ketones,Urine Negative (Negative); Leukocyte Esterase,Urine Negative (Negative); Mucus,Urine Rare /hpf; Nitrite,Urine Negative (Negative); Protein,Urine 1+ (Negative); RBC,Urine 1 /hpf (0-5); Specific Gravity,Urine 1.028 (1.001-1.035); WBC,Urine 2 /hpf (0-5)
[2018-08-20 14:22] VITALS: BMI 32.5
[2018-08-20] MEDS: SODIUM CHLORIDE 0.9% 1,000 ML IV ONE ×2 (14:30→18:10)
[2018-08-20] MEDS: HYDROmorphone 1 MG/ML 1 ML SYRINGE IVP PRN ×4 (14:38→23:14)
[2018-08-20] MEDS ORDERED: ceFAZolin IN SWFI 2 GM/20 ML SYRINGE IVP SCH (16:00)
--- NOTE | 2018-08-20 21:32 | P.GSHP ---
History of Present Illness H&P Date: 08/20/18 Chief Complaint: Left-sided abdominal pain The patient is a 78-year-old white male with a history of urolithiasis. He was treated last year for prostate cancer, receiving IMRT along with 6 months of androgen deprivation therapy. His most recent PSA level was 0.2 last month. He now presents with a three-day history of left-sided abdominal pain. A computed tomography scan has shown evidence of left hydronephrosis due to a 5 mm left distal ureteral calculus, with left perinephric edema. He is admitted for parenteral analgesics. - Constitutional Constitutional: Denies chills, Denies fever - Gastrointestinal Gastrointestinal: Reports nausea, Denies vomiting - Genitourinary (Female) Genitourinary: Reports dysuria, Reports kidney stones, Denies hematuria Past Medical History Past Medical History: Cancer, Chest Pain / Angina, COPD, GERD/Reflux, Hearing Disorder / Deafness, Hyperlipidemia, Hypertension, Osteoarthritis (OA), Prostate Disorder, Pulmonary Embolus (PE) Additional Past Medical History / Comment(s): Interstitial lung disease, pulmonary fibrosis, PE in 2011-pt cannot recall laterality, past home O2 use but none now, RIANA-cannot tolerate Cpap, prostate cancer with recent radiation treatment, skin cancer with removals, nephrolithiasis, migraines, compression fracture low back, bilateral elbow fractures with surgery, PUD, jaundiced as a child, [place] bilaterally. History of Any Multi-Drug Resistant Organisms: None Reported Past Surgical History: Appendectomy, Cholecystectomy, Heart Catheterization, Hernia Repair, Joint Replacement, Orthopedic Surgery Additional Past Surgical History / Comment(s): Prostate biopsy, L hand partial amp of 2 fingers, L knee ACL repair, R knee arthroscopy, bilateral total elbow replacements per pt, bilateral cataract removals, L inguinal hernia repair, cardiac caths x 2, EGD, colonoscopy, skin cancer removals. Past Anesthesia/Blood Transfusion Reactions: No Reported Reaction Smoking Status: Former smoker - Past Family History Brother(s) Family Medical History: Cancer Additional Family Medical History / Comment(s): ONE BROTHER HAD LUNG CA & ANOTHER HAD MELANOMA Mother Family Medical History: AICD/Pacemaker Father Family Medical History: No Reported History Sister(s) Family Medical History: No Reported History Medications and Allergies Home Medications Medication Instructions Recorded Confirmed Type LORazepam [Ativan] 0.5 mg PO TID PRN 10/08/14 05/07/19 History Sertraline [Zoloft] 25 mg PO HS 01/21/14 08/20/18 History Vits A,C,E/Lutein/Minerals 1 tab PO DAILY 01/21/14 08/20/18 History [Ocuvite with Lutein Tablet] amLODIPine [Norvasc] 10 mg PO DAILY 01/21/14 08/20/18 History Gabapentin [Neurontin] 100 mg PO QID 03/08/16 08/20/18 History Metoprolol Succinate (ER) [Toprol 25 mg PO DAILY 03/08/16 08/20/18 History Xl] Pantoprazole Sodium [Protonix] 40 mg PO DAILY 03/08/16 08/20/18 History Cephalexin [Keflex] 500 mg PO Q6HR 7 Days 08/17/18 08/20/18 Rx Pravastatin Sodium [Pravachol] 20 mg PO DAILY 08/20/18 08/20/18 History Allergies Allergy/AdvReac Type Severity Reaction Status Date / Time No Known Allergies Allergy Verified 08/20/18 09:29 Surgical - Exam Vital Signs Temp Pulse Resp BP Pulse Ox 97.5 F L 105 H 24 156/74 98 08/20/18 09:21 08/20/18 09:21 08/20/18 09:21 08/20/18 09:21 08/20/18 09:21 - General well developed, well nourished, no distress - Respiratory normal respiratory effort - Abdomen Abdomen: soft, tender (Mild left lower quadrant tenderness to palpation), no guarding, no rigid, no rebound, no distended - Genitourinary normal penis with no external lesions, testicles non-tender - Psychiatric oriented to time, oriented to person, oriented to place, speech is normal, memory intact Results - Labs 08/20/18 09:40 08/20/18 09:40 Abnormal Lab Results - Last 24 Hours (Table) 08/20/18 08/20/18 08/20/18 Range/Units 09:40 09:40 12:32 WBC 17.8 H (3.8-10.6) k/uL RDW 18.5 H (11.5-15.5) % Plt Count 552 H (150-450) k/uL Neutrophils # 14.7 H (1.3-7.7) k/uL BUN 38 H (9-20) mg/dL Creatinine 1.74 H (0.66-1.25) mg/dL Glucose 124 H (74-99) mg/dL Total Bilirubin 1.5 H (0.2-1.3) mg/dL AST 65 H (17-59) U/L ALT 80 H (21-72) U/L Alkaline Phosphatase 161 H (38-126) U/L Urine Protein 1+ H (Negative) Urine Bacteria Rare H (None) /hpf Urine Mucus Rare H (None) /hpf Diabetes panel 08/20/18 Range/Units 09:40 Sodium 143 (137-145) mmol/L Potassium 4.8 (3.5-5.1) mmol/L Chloride 106 (98-107) mmol/L Carbon Dioxide 29 (22-30) mmol/L BUN 38 H (9-20) mg/dL Creatinine 1.74 H (0.66-1.25) mg/dL Glucose 124 H (74-99) mg/dL Calcium 9.7 (8.4-10.2) mg/dL AST 65 H (17-59) U/L ALT 80 H (21-72) U/L Alkaline Phosphatase 161 H (38-126) U/L Total Protein 7.4 (6.3-8.2) g/dL Albumin 4.7 (3.5-5.0) g/dL Calcium panel 08/20/18 Range/Units 09:40 Calcium 9.7 (8.4-10.2) mg/dL Albumin 4.7 (3.5-5.0) g/dL Pituitary panel 08/20/18 Range/Units 09:40 Sodium 143 (137-145) mmol/L Potassium 4.8 (3.5-5.1) mmol/L Chloride 106 (98-107) mmol/L Carbon Dioxide 29 (22-30) mmol/L BUN 38 H (9-20) mg/dL Creatinine 1.74 H (0.66-1.25) mg/dL Glucose 124 H (74-99) mg/dL Calcium 9.7 (8.4-10.2) mg/dL Adrenal panel 08/20/18 Range/Units 09:40 Sodium 143 (137-145) mmol/L Potassium 4.8 (3.5-5.1) mmol/L Chloride 106 (98-107) mmol/L Carbon Dioxide 29 (22-30) mmol/L BUN 38 H (9-20) mg/dL Creatinine 1.74 H (0.66-1.25) mg/dL Glucose 124 H (74-99) mg/dL Calcium 9.7 (8.4-10.2) mg/dL Total Bilirubin 1.5 H (0.2-1.3) mg/dL AST 65 H (17-59) U/L ALT 80 H (21-72) U/L Alkaline Phosphatase 161 H (38-126) U/L Total Protein 7.4 (6.3-8.2) g/dL Albumin 4.7 (3.5-5.0) g/dL - Imaging CT scan - abdomen: report reviewed, image reviewed Assessment and Plan (1) Calculus of ureter Current Visit: Yes Status: Acute Code(s): N20.1 - CALCULUS OF URETER SNOMED Code(s): 99438083 (2) Hydronephrosis due to obstruction of ureter Current Visit: Yes Status: Acute Code(s): N13.2 - HYDRONEPHROSIS WITH RENAL AND URETERAL CALCULOUS OBSTRUCTION SNOMED Code(s): 935508093 Plan: I had a lengthy discussion with Mr. Ward regarding his ureteral calculus. In view of his intractable symptoms, I have suggested he undergo cystoscopy, left ureteroscopy with Holmium laser lithotripsy, left ureteral stent insertion. I reviewed with him the rationale for the procedure, as well as potential risks. These include anesthesia, infection, ureteral injury, and inability to successfully remove the calculus. If it is not possible to successfully remove the calculus, at the least I will attempt to place a ureteral stent which should result in significant symptomatic improvement. Time with Patient: Greater than 30
[2018-08-21] MEDS: HYDROmorphone 1 MG/ML 1 ML SYRINGE IVP PRN ×3 (00:17→11:30)
[2018-08-21 08:19] LABS: Albumin 3.9 g/dL (3.5-5.0); Calcium 9.1 mg/dL (8.4-10.2); Potassium 5.1 mmol/L (3.5-5.1); Total Bilirubin 1.2 mg/dL (0.2-1.3); Total Protein 6.2 g/dL (6.3-8.2)
[2018-08-21 08:34] LABS: Anisocytosis Slight; Basophils # (A) 0.1 k/uL (0-0.2); Basophils % (A) 1 %; Eosinophils # (A) 0.3 k/uL (0-0.7); Eosinophils % (A) 2 %; HCT 43.3 % (39.0-53.0); HGB 14.3 gm/dL (13.0-17.5); Lymphocytes # (A) 1.5 k/uL (1.0-4.8); Lymphocytes % (A) 10 %; MCH 29.7 pg (25.0-35.0); MCHC 33.2 g/dL (31.0-37.0); MCV 89.6 fL (80.0-100.0); Mean Platelet Volume 8.9; Monocytes # (A) 0.5 k/uL (0-1.0); Monocytes % (A) 3 %; Neutrophils # (A) 12.4 k/uL (1.3-7.7); Neutrophils % (A) 83 %; Platelet Count 469 k/uL (150-450); Poikilocytosis Slight; RBC 4.83 m/uL (4.30-5.90); RDW 17.9 % (11.5-15.5)
[2018-08-21 09:04] LABS: Large Platelets Present
[2018-08-21] MEDS: METOPROLOL SUCCINATE (ER) 25 MG TAB.ER.24H PO SCH (10:10)
[2018-08-21] MEDS: amLODIPine 10 MG TAB PO SCH (10:10)
[2018-08-21] MEDS: LORazepam 0.5 MG TAB PO PRN ×2 (10:10→21:58)
[2018-08-21] MEDS: CEPHALEXIN 500 MG CAP PO SCH ×2 (11:23→19:35)
[2018-08-21] MEDS ORDERED: SODIUM CHLORIDE 0.9% 1,000 ML IV ONE (12:45)
[2018-08-21] MEDS ORDERED: KETOROLAC 30 MG/ML 1 ML VIAL ONE (14:45)
[2018-08-21] MEDS ORDERED: PROPOFOL 10 MG/ML 20 ML VIAL IV ONE (14:45)
[2018-08-21] MEDS ORDERED: SUCCINYLCHOLINE CHLORIDE 100 MG/5 ML SYR IV ONE (14:45)
[2018-08-21] MEDS ORDERED: PHENYLEPHRINE-0.9% NACL SYG 1 MG/10 ML SYRINGE ONE (14:45)
[2018-08-21] MEDS ORDERED: LIDOCAINE 1% INJ 10MG/ML (20 ML MDV) ONE (14:45)
[2018-08-21] MEDS ORDERED: fentaNYL (PF) 50 MCG/ML 2 ML AMP ONE (14:45)
[2018-08-21] MEDS ORDERED: ePHEDrine SULFATE/0.9% NACL/PF 50 MG/5 ML SYRINGE IV ONE (14:45)
[2018-08-21] MEDS ORDERED: MIDAZOLAM 2 MG/2 ML VIAL ONE (14:45)
[2018-08-21] MEDS ORDERED: IOPAMIDOL-370 50ML BTL MISCELLANE ONE (15:40)
[2018-08-21] MEDS: GABAPENTIN 100 MG CAP PO SCH ×3 (15:45→21:58)
--- NOTE | 2018-08-21 16:09 | P.OP ---
Date of Procedure: 08/21/18 Preoperative Diagnosis: Left ureteral calculus Postoperative Diagnosis: Same Procedure(s) Performed: Cystoscopy, left ureteroscopy with Holmium laser lithotripsy, left ureteral stent insertion Anesthesia: EDINA Surgeon: Horace Rolon Estimated Blood Loss (ml): 0 IV fluids (ml): 300 Pathology: other (Calculus fragments, sent for chemical analysis.) Condition: stable Disposition: PACU Indications for Procedure: The patient is a 78-year-old white male with a history of urolithiasis. He was treated last year for prostate cancer, receiving IMRT along with 6 months of androgen deprivation therapy. His most recent PSA level was 0.2 last month. He now presents with a three-day history of left-sided abdominal pain. A computed tomography scan has shown evidence of left hydronephrosis due to a 5 mm left distal ureteral calculus, with left perinephric edema. Operative Findings: Obstructing left distal ureteral calculus, fragmented completely. Description of Procedure: The patient was taken to the operating room and placed in the dorsolithotomy position, with legs supported in Ernie stirrups. The external genitalia was prepped and draped sterilely. The 30 lens was used to introduce the 19-Salvadorean Stortz cystoscopic sheath through the urethra and into the bladder under direct vision. A wide caliber bulbous urethral stricture was seen, through which the cystoscope was gently advanced. The prostatic urethra showed no evidence of obstruction. The bladder was examined in its entirety. Both ureteral orifices were normal anatomic location and configuration. The ureteral orifices appeared small in caliber. No tumors or foreign bodies were seen. A 0.035 inch Glidewire was passed through the cystoscope. The left ureteral orifice was cannulated, and the Glidewire was advanced up to the left renal pelvis. A 4 cm, 15-Salvadorean balloon dilating catheter was passed over the wire, and this was used to dilate the intramural portion of the left ureter. The Olympus flexible ureteroscope was then passed over the wire, into the distal ureter. The calculus was identified. The 200 micron Holmium laser probe was passed through the ureteroscope, and lithotripsy was performed. The calculus was very dense, likely composed of calcium oxalate monohydrate. Lithotripsy was continued until the calculus fragments were no larger than the size of the laser fiber tip. The ureteroscope was then advanced under direct vision. No additional calculi were seen within the ureter. The kidney was examined. A Jason's plaque was identified within a lower pole calyx. No calculi were seen. The Glidewire was passed through the ureteroscope, which was then removed. The ureteroscope was backloaded into the cystoscope, which was passed into the bladder. A 28 cm, 4.8-Salvadorean double-J ureteral stent was placed over the wire. Proper stent positioning was verified fluoroscopically and endoscopically. The bladder was emptied and the cystoscope removed. 2 small calculus fragments were sent for chemical analysis. The patient tolerated the procedure well and was taken to the recovery room in stable condition. [facility] [place] Procedure Acuity: Urgent Stone Size and Location: 5 mm left distal ureteral calculus Ureteral Dilation: Balloon Dilation Ureteral Access Sheath Used: No Stone Sent for Analysis: Yes All Stones/Fragments Were Removed with a Basket: No Complications: No Preoperative Antibiotics Given: Yes Stent Placed: Yes If Stent Placed, Was String Left Attached: Yes If Stent Placed, When is it to be Removed: 1 week
[2018-08-21] MEDS: HYDROmorphone 1 MG/ML 1 ML SYRINGE IVP ONE ×2 (16:40→16:50)
[2018-08-21] MEDS: SODIUM CHLORIDE 0.9% 1,000 ML IV STA (17:36)
[2018-08-21] MEDS ORDERED: SERTRALINE 25 MG TAB PO SCH (21:00)
[2018-08-22] MEDS: LORazepam 0.5 MG TAB PO PRN (05:28)
[2018-08-22] MEDS: amLODIPine 10 MG TAB PO SCH (05:32)
[2018-08-22 06:08] VITALS: RESP 20
[2018-08-22] MEDS ORDERED: PANTOPRAZOLE 40 MG TABLET PO SCH (07:30)
[2018-08-22] MEDS: GABAPENTIN 100 MG CAP PO SCH (08:20)
[2018-08-22] MEDS: METOPROLOL SUCCINATE (ER) 25 MG TAB.ER.24H PO SCH (08:20)
[2018-08-22] MEDS ORDERED: PRAVASTATIN SODIUM 20 MG TAB PO SCH (09:00)
--- NOTE | 2018-08-22 11:18 | FL ---
EXAMINATION TYPE: FL urography retrograde DATE OF EXAM: 08/21/2018 COMPARISON: NONE HISTORY: Fluoroscopy time TECHNIQUE: Fluoroscopy. FINDINGS: Fluoroscopic guidance 13 seconds provided
[2018-08-22 11:41] VITALS: BP 171/94; PULSE 104; TEMP 98
--- NOTE | 2018-08-22 12:49 | P.DS ---
Providers Date of admission: 08/20/18 10:44 Expected date of discharge: 08/22/18 Attending physician: Horace Rolon Primary care physician: Barrington Goyal - Discharge Diagnosis(es) (1) Calculus of ureter Current Visit: Yes Status: Acute Priority: High (2) Hydronephrosis due to obstruction of ureter Current Visit: Yes Status: Acute Priority: High Hospital Course: The patient was admitted with left renal colic due to a 5 mm left distal ureteral calculus. He was admitted for IV hydration and parenteral analgesics. On August 21, he underwent ureteroscopic removal of the calculus, and a ureteral stent was placed. On the day of discharge, he was feeling considerably better. He denied difficulty voiding. He reported minimal hematuria and was reassured that this is expected. Procedures: Cystoscopy, left ureteroscopy with Holmium laser lithotripsy, left ureteral stent insertion on 08/21/2018. Patient Condition at Discharge: Good Plan - Discharge Summary Discharge Rx Participant: No New Discharge Prescriptions: No Action Sertraline [Zoloft] 25 mg PO HS amLODIPine [Norvasc] 10 mg PO DAILY Vits A,C,E/Lutein/Minerals [Ocuvite with Lutein Tablet] 1 tab PO DAILY LORazepam [Ativan] 0.5 mg PO TID PRN PRN Reason: Anxiety Pantoprazole Sodium [Protonix] 40 mg PO DAILY Metoprolol Succinate (ER) [Toprol Xl] 25 mg PO DAILY Gabapentin [Neurontin] 100 mg PO QID Cephalexin [Keflex] 500 mg PO Q6HR 7 Days Pravastatin Sodium [Pravachol] 20 mg PO DAILY Discharge Medication List LORazepam [Ativan] 0.5 mg PO TID PRN 01/21/14 [History] Sertraline [Zoloft] 25 mg PO HS 01/21/14 [History] Vits A,C,E/Lutein/Minerals [Ocuvite with Lutein Tablet] 1 tab PO DAILY 01/21/14 [History] amLODIPine [Norvasc] 10 mg PO DAILY 01/21/14 [History] Gabapentin [Neurontin] 100 mg PO QID 03/08/16 [History] Metoprolol Succinate (ER) [Toprol Xl] 25 mg PO DAILY 03/08/16 [History] Pantoprazole Sodium [Protonix] 40 mg PO DAILY 03/08/16 [History] Cephalexin [Keflex] 500 mg PO Q6HR 7 Days 08/17/18 [Rx] Pravastatin Sodium [Pravachol] 20 mg PO DAILY 08/20/18 [History] Follow up Appointment(s)/Referral(s): Barrington Goyal Jr, DO [Primary Care Provider] - 1-2 days Horace Rolon MD [STAFF PHYSICIAN] - 08/29/18 Activity/Diet/Wound Care/Special Instructions: Diet as tolerated. Activity as tolerated. Drink plenty of fluids. Follow up 08/29/2018 for office cystoscopy with stent removal. Discharge Disposition: HOME SELF-CARE
== END 2018-08-22 13:45 | disposition home or self-care (01) | DRG 661 ==
LOC: EC 09:19 → 3NMEDONC 10:44
PROVIDERS: ADMIT Urology; ATTEND Urology
PROC: 0T778DZ Dilation of Left Ureter with Intraluminal Device, Via Natural or Artificial Opening Endoscopic (ICD-10-PCS; principal; 2018-08-21 13:00)
PROC: 0TC78ZZ Extirpation of Matter from Left Ureter, Via Natural or Artificial Opening Endoscopic (ICD-10-PCS; principal; 2018-08-21 13:00)
DX: N13.2 Hydronephrosis with renal and ureteral calculous obstruction (principal); J44.9 Chronic obstructive pulmonary disease, unspecified; I10 Essential (primary) hypertension; E78.5 Hyperlipidemia, unspecified; H91.90 Unspecified hearing loss, unspecified ear; M19.90 Unspecified osteoarthritis, unspecified site; F41.9 Anxiety disorder, unspecified; G47.33 Obstructive sleep apnea (adult) (pediatric); J84.10 Pulmonary fibrosis, unspecified; G43.909 Migraine, unspecified, not intractable, without status migrainosus; K21.9 Gastro-esophageal reflux disease without esophagitis; F32.9 Major depressive disorder, single episode, unspecified; Z96.653 Presence of artificial knee joint, bilateral; R31.9 Hematuria, unspecified; Z96.622 Presence of left artificial elbow joint; Z96.621 Presence of right artificial elbow joint; Z90.49 Acquired absence of other specified parts of digestive tract; Z79.899 Other long term (current) drug therapy; Z86.711 Personal history of pulmonary embolism; Z87.442 Personal history of urinary calculi; Z87.891 Personal history of nicotine dependence; Z85.46 Personal history of malignant neoplasm of prostate; Z92.3 Personal history of irradiation; Z85.828 Personal history of other malignant neoplasm of skin; Z80.8 Family history of malignant neoplasm of other organs or systems; Z80.1 Family history of malignant neoplasm of trachea, bronchus and lung; Z98.890 Other specified postprocedural states; Z82.49 Family history of ischemic heart disease and other diseases of the circulatory system; Z98.42 Cataract extraction status, left eye; Z98.41 Cataract extraction status, right eye
CPT/HCPCS: 36415; 74018; 74176; 74420; 80053; 81001; 82150; 82365; 83690; 85025; 93005; 96361; 96365; 96374; 96375; 99284; 99285

== ENCOUNTER → 2018-11-06 | Outpatient (CLI) | payer MEDICARE ==
[2018-11-06 17:17] LABS: Anisocytosis Slight; Basophils # (A) 0.2 k/uL (0-0.2); Basophils % (A) 1 %; Eosinophils # (A) 0.5 k/uL (0-0.7); Eosinophils % (A) 4 %; HCT 44.1 % (39.0-53.0); HGB 14.7 gm/dL (13.0-17.5); Lymphocytes # (A) 1.9 k/uL (1.0-4.8); Lymphocytes % (A) 14 %; MCH 29.2 pg (25.0-35.0); MCHC 33.4 g/dL (31.0-37.0); MCV 87.3 fL (80.0-100.0); Mean Platelet Volume 9.2; Monocytes # (A) 0.5 k/uL (0-1.0); Monocytes % (A) 4 %; Neutrophils # (A) 10.2 k/uL (1.3-7.7); Neutrophils % (A) 75 %; Platelet Count 504 k/uL (150-450); Poikilocytosis Slight; RBC 5.05 m/uL (4.30-5.90); RDW 18.6 % (11.5-15.5); WBC 13.5 k/uL (3.8-10.6)
[2018-11-06 19:52] LABS: Erythrocyte Sedimentation Rate 5 mm/hr (0-15)
[2018-11-07 00:34] LABS: Rheumatoid Factor 9 IU/mL (0-15)
[2018-11-07 00:40] LABS: C Reactive Protein <0.4 mg/dL (0.0-0.8); Uric Acid 10.3 mg/dL (3.7-8.7)
== END | disposition home or self-care (01) ==
LOC: LABWHC1 16:03
PROVIDERS: ATTEND Podiatrist Foot & Ankle Surgery
DX: B99.9 Unspecified infectious disease (principal); M19.90 Unspecified osteoarthritis, unspecified site
CPT/HCPCS: 36415; 84550; 85025; 85652; 86038; 86140; 86431

== ENCOUNTER → 2018-11-26 | Outpatient (CLI) | payer MEDICARE ==
--- NOTE | 2018-11-26 09:39 | US ---
EXAMINATION TYPE: US kidneys/renal and bladder DATE OF EXAM: 11/26/2018 COMPARISON: CT dated 08/20/2018 CLINICAL HISTORY: R93.4 hx of hydronephrosis. EXAM MEASUREMENTS: Right Kidney: 9.7 x 4.6 x 4.3 cm Left Kidney: 11.7 x 4.5 x 5.5 cm Right Kidney: No hydronephrosis or masses seen Left Kidney: No hydronephrosis or masses seen Bladder: Urinary bladder potts are slightly irregular that could relate to incomplete distention. Bilateral Jets seen: no Incidental note is made of enlarged spleen at 17.8 cm There is no evidence for hydronephrosis at this point in time. No nephrolithiasis is seen. No jay s are identified. The urinary bladder is anechoic. Bilateral ureteral jets are seen. Mild cortical renal thinning is seen bilaterally. Irregular IMPRESSION: 1. Resolution of the previously seen left-sided hydronephrosis. The known punctate bilateral renal ca lculi are not seen and could be too small to visualize or passed in the interim, less likely. 2. Redemonstration of marked splenomegaly with the spleen measuring 17.8 cm. 3. Slight irregularity of the urinary bladder wall globally could relate to incomplete distention or cystitis. Correlate with urinalysis. 4. Sonographic sequela of medical renal disease with cortical renal thinning bilaterally.
== END | disposition home or self-care (01) ==
LOC: RADUSWWP 08:41
PROVIDERS: ATTEND Urology
DX: R93.49 Abnormal radiologic findings on diagnostic imaging of other urinary organs (principal)
CPT/HCPCS: 76770

== ENCOUNTER → 2018-12-10 | Outpatient (CLI) | payer MEDICARE ==
--- NOTE | 2018-12-10 14:45 | XR ---
EXAM TYPE: LUMBAR SPINE X RAY SERIES COMPARISON: NONE HISTORY: Pain TECHNIQUE: 4 views are submitted. FINDINGS: Alignment is anatomic. The pedicles are intact. The transverse processes are intact. There is curv ature the spine with hypertrophic changes and multilevel degenerative disc disease. Surgical clips in the gallbladder fossa. Vascular calcification of the aorta with suspicion of a 3.8 cm abdominal aort ic aneurysm. Severe degenerative disc disease L2-3 and L3-4 with a 4 mm retrolisthesis of L2 relative to L3 and a 4 mm retrolisthesis of L3 on L4. Multilevel facet arthropathy and moderate degenerative disc disease. IMPRESSION: 1. Scoliosis with multilevel moderate to severe degenerative disc disease most marked findings at L2- 3 and L3-L4 with retrolisthesis at both levels. This could result in canal stenosis correlation with MRI recommended. 2. Findings are suggestive of a abdominal aortic aneurysm measuring 3.7 cm which has been previously reported by CT scan 08/30/2018.
== END | disposition home or self-care (01) ==
LOC: RADXRMAIN 14:24
PROVIDERS: ATTEND Family Medicine
DX: M43.16 Spondylolisthesis, lumbar region (principal); M51.36 Other intervertebral disc degeneration, lumbar region; M41.86 Other forms of scoliosis, lumbar region
CPT/HCPCS: 72110

== ENCOUNTER 2018-12-12 09:48 | Emergency (ER) | payer MEDICARE ==
[2018-12-12] MEDS ORDERED: SODIUM CHLORIDE 0.9% 500 ML 500 ML IV STA (10:06)
--- NOTE | 2018-12-12 10:27 | ED ---
General Adult HPI - General Chief complaint: Abdominal Pain Stated complaint: Kidney stones Time Seen by Provider: 12/12/18 09:59 Source: patient Mode of arrival: wheelchair Limitations: no limitations - History of Present Illness Initial comments: Dictation was produced using [employer] dictation software. please excuse any grammatical, word or spelling errors. Chief Complaint: 78-year-old male with past medical history of nephrolithiasis presents with right flank pain. History of Present Illness: 78-year-old male who has multiple comorbidities. Patient has history of 3.7 cm aortic aneurysm, history of kidney stones. He presents with approximately 6 days of right flank pain. Patient states his pain is intermittent with colicky nature. Patient is a history of kidney stones. Patient has had a kidney stone back in August of this year. Patient denies any fever, chills or night sweats. No nausea vomiting. No diarrhea. Patient was told to follow-up with his kidney doctor earlier this week however he has not made the appointment. Denies any urinary symptoms. The ROS documented in this emergency department record has been reviewed and confirmed by me. Those systems with pertinent positive or negative responses have been documented in the HPI. All other systems are other negative and/or noncontributory. PHYSICAL EXAM: General Impression: Alert and oriented x3, not in acute distress HEENT: Normocephalic atraumatic, extra-ocular movements intact, pupils equal and reactive to light bilaterally, mucous membranes moist. Cardiovascular: Heart regular rate and rhythm, S1&S2 audible, no murmurs, rubs or gallops Chest: Lungs clear to auscultation bilaterally, no rhonchi, no wheeze, no rales Abdomen: Bowel sounds present, abdomen soft, non-tender, non-distended, no organomegaly Musculoskeletal: Pulses present and equal in all extremities, no peripheral edema Motor: no focal deficits noted Neurological: CN II-XII grossly intact, no focal motor or sensory deficits noted Skin: Intact with no visualized rashes Psych: Normal affect and mood ED course: 78-year-old male with past medical history of kidney stones, abdominal aortic aneurysm top of several other comorbidities presents with right flank pain. All signs upon arrival are within acceptable limits. Patient's well-appearing at bedside although he says he is in constant pain. he reports that his symptoms are exactly like his kidney stone pain. Lab return evaluation obtained. Mild monocytosis of 15.3. This appears to be patient's baseline. Rest of CBC unremarkable. Cardiac panel unremarkable. Metabolic panel shows elevated renal markers but this appears to be patient's baseline. Urinalysis shows 1+ protein. No RBCs. Ultrasound of the abdomen and bladder shows no acute processes. No findings of hydronephrosis to the right kidney. Acute abdominal series is negative. Patient's well-appearing at bedside. His concern that patient's symptoms are secondary to a small kidney stone. He appears well at bedside. Patient advised to follow-up with his urologist for outpatient management of kidney stone pain. EKG interpretation: Ventricular rate 82, normal sinus rhythm, VA interval 150, care is 86, QTC 413. No VA prolongation, no QTC prolongation, no ST or T-wave changes noted. EKG compared to 08/21/2018 showing no changes. Overall, this EKG is unremarkable - Related Data Home Medications Medication Instructions Recorded Confirmed LORazepam [Ativan] 0.5 mg PO TID PRN 01/21/14 12/12/18 Sertraline [Zoloft] 25 mg PO HS 01/21/14 12/12/18 amLODIPine [Norvasc] 10 mg PO HS 01/21/14 12/12/18 Metoprolol Succinate (ER) [Toprol 25 mg PO DAILY 03/08/16 12/12/18 Xl] Pantoprazole Sodium [Protonix] 40 mg PO DAILY 03/08/16 12/12/18 Calcium Polycarbophil [Fibercon] 625 mg PO DAILY 12/12/18 12/12/18 Cholecalciferol [Vitamin D3 (25 1,000 unit PO DAILY 12/12/18 12/12/18 Mcg = 1000 Iu)] Vit C/E/Zn/Coppr/Lutein/Zeaxan 1 cap PO BID 12/12/18 12/12/18 [Preservision Areds 2 Softgel] Previous Rx's Medication Instructions Recorded HYDROcodone/APAP 5-325MG [[place] 1 tab PO Q6HR PRN 3 Days #12 tab 12/12/18 5-325] Ondansetron Odt [Zofran Odt] 4 mg PO Q8HR PRN #12 tab 12/12/18 Allergies Allergy/AdvReac Type Severity Reaction Status Date / Time No Known Allergies Allergy Verified 12/12/18 10:24 Review of Systems ROS Statement: Those systems with pertinent positive or pertinent negative responses have been documented in the HPI. ROS Other: All systems not noted in ROS Statement are negative. Past Medical History Past Medical History: Cancer, Chest Pain / Angina, COPD, GERD/Reflux, Hearing Disorder / Deafness, Hyperlipidemia, Hypertension, Osteoarthritis (OA), Prostate Disorder, Pulmonary Embolus (PE) Additional Past Medical History / Comment(s): Interstitial lung disease, pulmonary fibrosis, PE in 2012-pt cannot recall laterality, past home O2 use but none now, RIANA-cannot tolerate Cpap, prostate cancer with recent radiation treatment, skin cancer with removals, nephrolithiasis, migraines, compression fracture low back, bilateral elbow fractures with surgery, PUD, jaundiced as a child, [place] bilaterally. History of Any Multi-Drug Resistant Organisms: None Reported Past Surgical History: Appendectomy, Cholecystectomy, Heart Catheterization, Hernia Repair, Joint Replacement, Orthopedic Surgery Additional Past Surgical History / Comment(s): Prostate biopsy, L hand partial amp of 2 fingers, L knee ACL repair, R knee arthroscopy, bilateral total elbow replacements per pt, bilateral cataract removals, L inguinal hernia repair, cardiac caths x 2, EGD, colonoscopy, skin cancer removals. Past Anesthesia/Blood Transfusion Reactions: No Reported Reaction Past Psychological History: Anxiety, Depression Smoking Status: Former smoker Past Alcohol Use History: None Reported Past Drug Use History: None Reported - Past Family History Brother(s) Family Medical History: Cancer Additional Family Medical History / Comment(s): ONE BROTHER HAD LUNG CA & ANO THER HAD MELANOMA Mother Family Medical History: AICD/Pacemaker Father Family Medical History: No Reported History Sister(s) Family Medical History: No Reported History General Exam Limitations: no limitations Course Vital Signs 12/12/18 09:53 Temperature 97.6 F Pulse Rate 74 Respiratory 16 Rate Blood Pressure 163/70 O2 Sat by Pulse 97 Oximetry Medical Decision Making - Lab Data Result diagrams: 12/12/18 10:42 12/12/18 10:42 Lab Results 12/12/18 12/12/18 12/12/18 Range/Units 10:42 10:42 10:42 WBC 15.3 H (3.8-10.6) k/uL RBC 5.47 (4.30-5.90) m/uL Hgb 16.0 (13.0-17.5) gm/dL Hct 46.8 (39.0-53.0) % MCV 85.7 (80.0-100.0) fL MCH 29.3 (25.0-35.0) pg MCHC 34.2 (31.0-37.0) g/dL RDW 17.4 H (11.5-15.5) % Plt Count 666 H (150-450) k/uL Neutrophils % (Manual) 84 % Band Neutrophils % 1 % Lymphocytes % (Manual) 6 % Monocytes % (Manual) 5 % Eosinophils % (Manual) 4 % Neutrophils # (Manual) 13.00 H (1.3-7.7) k/uL Lymphocytes # (Manual) 0.92 L (1.0-4.8) k/uL Monocytes # (Manual) 0.77 (0-1.0) k/uL Eosinophils # (Manual) 0.61 (0-0.7) k/uL Nucleated RBCs 0 (0-0) /100 WBC Manual Slide Review Performed Large Platelets Present Poikilocytosis Slight Anisocytosis Slight PT (9.0-12.0) sec INR (<1.2) Sodium 141 (137-145) mmol/L Potassium 5.1 (3.5-5.1) mmol/L Chloride 108 H (98-107) mmol/L Carbon Dioxide 25 (22-30) mmol/L Anion Gap 8 mmol/L BUN 31 H (9-20) mg/dL Creatinine 1.59 H (0.66-1.25) mg/dL Est GFR (CKD-EPI)AfAm 48 (>60 ml/min/1.73 sqM) Est GFR (CKD-EPI)NonAf 41 (>60 ml/min/1.73 sqM) Glucose 109 H (74-99) mg/dL Calcium 9.4 (8.4-10.2) mg/dL Urine Color Yellow Urine Appearance Clear (Clear) Urine pH 6.0 (5.0-8.0) Ur Specific [place] 1.023 (1.001-1.035) Urine Protein 1+ H (Negative) Urine Glucose (UA) Negative (Negative) Urine Ketones Negative (Negative) Urine Blood Negative (Negative) Urine Nitrite Negative (Negative) Urine Bilirubin Negative (Negative) Urine Urobilinogen <2.0 (<2.0) mg/dL Ur Leukocyte Esterase Negative (Negative) Urine RBC 1 (0-5) /hpf Urine WBC 2 (0-5) /hpf Hyaline Casts 3 H (0-2) /lpf Urine Mucus Few H (None) /hpf 12/12/18 Range/Units 10:42 WBC (3.8-10.6) k/uL RBC (4.30-5.90) m/uL Hgb (13.0-17.5) gm/dL Hct (39.0-53.0) % MCV (80.0-100.0) fL MCH (25.0-35.0) pg MCHC (31.0-37.0) g/dL RDW (11.5-15.5) % Plt Count (150-450) k/uL Neutrophils % (Manual) % Band Neutrophils % % Lymphocytes % (Manual) % Monocytes % (Manual) % Eosinophils % (Manual) % Neutrophils # (Manual) (1.3-7.7) k/uL Lymphocytes # (Manual) (1.0-4.8) k/uL Monocytes # (Manual) (0-1.0) k/uL Eosinophils # (Manual) (0-0.7) k/uL Nucleated RBCs (0-0) /100 WBC Manual Slide Review Large Platelets Poikilocytosis Anisocytosis PT 11.9 (9.0-12.0) sec INR 1.1 (<1.2) Sodium (137-145) mmol/L Potassium (3.5-5.1) mmol/L Chloride (98-107) mmol/L Carbon Dioxide (22-30) mmol/L Anion Gap mmol/L BUN (9-20) mg/dL Creatinine (0.66-1.25) mg/dL Est GFR (CKD-EPI)AfAm (>60 ml/min/1.73 sqM) Est GFR (CKD-EPI)NonAf (>60 ml/min/1.73 sqM) Glucose (74-99) mg/dL Calcium (8.4-10.2) mg/dL Urine Color Urine Appearance (Clear) Urine pH (5.0-8.0) Ur Specific [place] (1.001-1.035) Urine Protein (Negative) Urine Glucose (UA) (Negative) Urine Ketones (Negative) Urine Blood (Negative) Urine Nitrite (Negative) Urine Bilirubin (Negative) Urine Urobilinogen (<2.0) mg/dL Ur Leukocyte Esterase (Negative) Urine RBC (0-5) /hpf Urine WBC (0-5) /hpf Hyaline Casts (0-2) /lpf Urine Mucus (None) /hpf Disposition Clinical Impression: Flank pain Disposition: HOME SELF-CARE Condition: Good Instructions (If sedation given, give patient instructions): Kidney Stones (ED) Prescriptions: HYDROcodone/APAP 5-325MG [[place] 5-325] 1 tab PO Q6HR PRN 3 Days #12 tab PRN Reason: Severe Pain Ondansetron Odt [Zofran Odt] 4 mg PO Q8HR PRN #12 tab PRN Reason: Nausea Is patient prescribed a controlled substance at d/c from ED?: Yes If prescribed controlled substance>3 days was MAPS reviewed?: Prescribed <3 Days Referrals: Barrington Goyal Jr, DO [Primary Care Provider] - 1-2 days Horace Rolon MD [STAFF PHYSICIAN] - 1-2 days Time of Disposition: 12:57
[2018-12-12 11:30] LABS: Appearance,Urine Clear (Clear); Bilirubin,Urine Negative (Negative); Blood,Urine Negative (Negative); Color,Urine Yellow; Glucose,Urine (UA) Negative (Negative); Hyaline Casts,Urine 3 /lpf (0-2); Ketones,Urine Negative (Negative); Leukocyte Esterase,Urine Negative (Negative); Mucus,Urine Few /hpf; Nitrite,Urine Negative (Negative); Protein,Urine 1+ (Negative); RBC,Urine 1 /hpf (0-5); Specific Gravity,Urine 1.023 (1.001-1.035); Urobilinogen,Urine <2.0 mg/dL (<2.0)
[2018-12-12 11:36] LABS: Anisocytosis Slight; HCT 46.8 % (39.0-53.0); MCH 29.3 pg (25.0-35.0); MCHC 34.2 g/dL (31.0-37.0); MCV 85.7 fL (80.0-100.0); Mean Platelet Volume 8.7; Platelet Count 666 k/uL (150-450); Poikilocytosis Slight; RBC 5.47 m/uL (4.30-5.90); RDW 17.4 % (11.5-15.5); WBC 15.3 k/uL (3.8-10.6)
[2018-12-12 11:38] LABS: Calcium 9.4 mg/dL (8.4-10.2); Potassium 5.1 mmol/L (3.5-5.1)
[2018-12-12 11:39] LABS: INR 1.1 (<1.2); Prothrombin Time 11.9 sec (9.0-12.0)
--- NOTE | 2018-12-12 11:59 | US ---
EXAMINATION TYPE: US kidneys/renal and bladder DATE OF EXAM: 12/12/2018 COMPARISON: NONE CLINICAL HISTORY: Pain. Pain Hx of stones. EXAM MEASUREMENTS: Right Kidney: 9.9 x 3.9 x 3.8 cm Left Kidney: 12.4 x 4.9 x 4.9 cm Right Kidney: No hydronephrosis or masses seen Left Kidney: No hydronephrosis or masses seen Bladder: Anechoic, incompletely distended Bilateral Jets seen: No There is no evidence for hydronephrosis at this point in time. No nephrolithiasis is seen. No jay s are identified. The urinary bladder is anechoic. Cortical thinning is appreciated bilaterally, right vertebral and left. Right renal atrophy. IMPRESSION: No hydronephrosis or nephrolithiasis. Sonographic sequela of medical renal disease, more pronounced o n the right than left. Urinary bladder is incompletely distended and suboptimally evaluated.
--- NOTE | 2018-12-12 12:00 | XR ---
EXAMINATION TYPE: XR abdomen acute w cxr DATE OF EXAM: 12/12/2018 CLINICAL HISTORY: Right posterior flank pain. Chest pain. TECHNIQUE: Single frontal view of chest is obtained. Supine and upright views of the abdomen are acq uired. COMPARISON: CT abdomen and pelvis August 20, 2018. Chest x-ray September 30, 2017 FINDINGS:. Chronic parenchymal change with right basilar focal linear scarring redemonstrated. No new focal airs pace opacity, pleural effusion, or pneumothorax. Cardiac silhouette size is stable and within normal limits with atherosclerotic and slightly ectatic thoracic aorta redemonstrated. Osseous structures a re intact. Overlying EKG leads are noted. Gas is noted in nondistended small and large bowel loops including terminal ileum. Cholecystectomy cl ips are redemonstrated. Numerous surgical clips overlie bilateral pelvis are again seen. Persistent d extroconvex scoliosis centered at L3 level. Surgical sutures right lower pelvis are redemonstrated. B ilateral vascular groin calcification is seen. Tiny bilateral renal calculi on CT are less well seen on plain films due to size. IMPRESSION: 1. Chronic parenchymal changes without acute pulmonary process. 2. Overall nonobstructive bowel gas pattern. Patient has tiny bilateral renal calculi on recent CT to o small to visualize on x-ray.
[2018-12-12] MEDS ORDERED: LIDOCAINE 5% PATCH TOPICAL STA (12:35)
[2018-12-12 12:51] LABS: Band Neutrophils % 1 %; Eosinophils # (M) 0.61 k/uL (0-0.7); Lymphocytes # (M) 0.92 k/uL (1.0-4.8); Monocytes # (M) 0.77 k/uL (0-1.0); Neutrophils % (M) 84 %; Nucleated Red Blood Cells 0 /100 WBC (0-0); Total Cells Counted 100
[2018-12-12 12:52] LABS: Large Platelets Present
[2018-12-12 13:27] VITALS: BP 165/86; PULSE 86; RESP 18; TEMP 97.8
== END 2018-12-12 13:27 | disposition home or self-care (01) ==
LOC: EC 09:48
DX: R10.9 Unspecified abdominal pain (principal); D72.821 Monocytosis (symptomatic); R80.9 Proteinuria, unspecified; I71.4 Abdominal aortic aneurysm, without rupture; F41.9 Anxiety disorder, unspecified; F32.9 Major depressive disorder, single episode, unspecified; I10 Essential (primary) hypertension; K21.9 Gastro-esophageal reflux disease without esophagitis; M19.90 Unspecified osteoarthritis, unspecified site; I20.9 Angina pectoris, unspecified; Z87.442 Personal history of urinary calculi; Z79.899 Other long term (current) drug therapy; Z85.46 Personal history of malignant neoplasm of prostate; Z85.828 Personal history of other malignant neoplasm of skin; Z92.3 Personal history of irradiation; Z96.621 Presence of right artificial elbow joint; Z96.622 Presence of left artificial elbow joint; Z98.41 Cataract extraction status, right eye; Z98.42 Cataract extraction status, left eye; Z87.891 Personal history of nicotine dependence; Z95.5 Presence of coronary angioplasty implant and graft; Z98.890 Other specified postprocedural states
CPT/HCPCS: 36415; 74022; 76770; 80048; 81001; 85025; 85610; 93005; 99284

== ENCOUNTER → 2018-12-17 | Outpatient (CLI) | payer MEDICARE ==
--- NOTE | 2018-12-17 17:46 | CT ---
EXAMINATION TYPE: CT abdomen pelvis wo con DATE OF EXAM: 12/17/2018 COMPARISON: 08/20/2018 CT HISTORY: Renal colic, pain RT side. Hx prostate ca, hernia repair sx. CT DLP: 1025.20 mGycm Automated exposure control for dose reduction was used. TECHNIQUE: Helical acquisition of images was performed from the lung bases through the pelvis. FINDINGS: Within the limitations of noncontrast CT the following observations are made. LUNG BASES: No acute findings, but coronary calcifications noted. LIVER/GB: No significant abnormality is appreciated. PANCREAS: No significant abnormality is seen. SPLEEN: Moderate splenomegaly redemonstrated without focal lesions. ADRENALS: No significant abnormality is seen. KIDNEYS AND URETERS AND URINARY BLADDER: Negative for obstructive uropathy. There are a few scattered submillimeter none obstructing bilateral renal calcifications. Previously-seen distal left ureteral calcification is no longer demonstrated. Also, the previously seen moderately prominent left pelvic e xtraperitoneal extravasating fluid has resolved in the interim. The bladder is nondistended. Prostate appears moderately enlarged. FREE AIR: No free air is visualized RETROPERITONEAL ADENOPATHY: None visualized REPRODUCTIVE ORGANS: No significant abnormality is seen PELVIC ADENOPATHY: None visualized. OSSEOUS STRUCTURES: No acute findings. BOWEL: No significant abnormality is seen. OTHER: Atherosclerotic aortoiliac changes are unchanged, with abdominal aortic aneurysm reaching 3.6 cm caliber. IMPRESSION: NO DEFINITE ACUTE PROCESS.
== END | disposition home or self-care (01) ==
LOC: RADCTMAIN 16:39
PROVIDERS: ATTEND Family Medicine
DX: N23 Unspecified renal colic (principal)
CPT/HCPCS: 74176

== ENCOUNTER → 2019-01-21 | Outpatient (CLI) | payer MEDICARE | END | disposition home or self-care (01) | LOC: LABWHC1 11:19 | PROVIDERS: ATTEND Radiology Radiation Oncology | DX: C61 Malignant neoplasm of prostate (principal); Z87.891 Personal history of nicotine dependence; Z92.3 Personal history of irradiation | CPT/HCPCS: 36415; 84153; 84403 ==

== ENCOUNTER 2019-08-29 13:51 | Emergency (ER) | payer MEDICARE ==
[2019-08-29 14:05] LABS: Glucose,Whole Blood 109 mg/dL (75-99)
--- NOTE | 2019-08-29 14:35 | ED ---
General Adult HPI - General Chief complaint: Seizure Stated complaint: Seizure Time Seen by Provider: 08/29/19 13:54 Source: patient, family, RN/MD, EMS, RN notes reviewed Mode of arrival: EMS Limitations: no limitations - History of Present Illness Initial comments: Patient is a pleasant 79-year-old male presenting to the emergency department with concerns for seizure. Patient went to see his primary care physician for follow-up for chronic back pain. Patient had an episode of unresponsiveness lasting just a minute or so. There was some shaking involved with that. Patient does not recall the episode however does remember feeling lightheaded p rior to that. Patient states he feels mostly normal at this time. Patient does admit to feeling somewhat fatigued. No history of similar symptoms previously. No headache or confusion. No weakness. - Related Data Home Medications Medication Instructions Recorded Confirmed LORazepam [Ativan] 0.5 mg PO TID PRN 01/21/14 12/12/18 Sertraline [Zoloft] 25 mg PO HS 01/21/14 12/12/18 amLODIPine [Norvasc] 10 mg PO HS 01/21/14 12/12/18 Metoprolol Succinate (ER) [Toprol 25 mg PO DAILY 03/08/16 12/12/18 Xl] Pantoprazole Sodium [Protonix] 40 mg PO DAILY 03/08/16 12/12/18 Calcium Polycarbophil [Fibercon] 625 mg PO DAILY 12/12/18 12/12/18 Cholecalciferol [Vitamin D3 (25 1,000 unit PO DAILY 12/12/18 12/12/18 Mcg = 1000 Iu)] Vit C/E/Zn/Coppr/Lutein/Zeaxan 1 cap PO BID 12/12/18 12/12/18 [Preservision Areds 2 Softgel] Previous Rx's Medication Instructions Recorded HYDROcodone/APAP 5-325MG [[place] 1 tab PO Q6HR PRN 3 Days #12 tab 12/12/18 5-325] Ondansetron Odt [Zofran Odt] 4 mg PO Q8HR PRN #12 tab 12/12/18 predniSONE [Deltasone] 20 mg PO BID #10 tab 08/29/19 Allergies Allergy/AdvReac Type Severity Reaction Status Date / Time No Known Allergies Allergy Verified 12/12/18 10:24 Review of Systems ROS Statement: Those systems with pertinent positive or pertinent negative responses have been documented in the HPI. ROS Other: All systems not noted in ROS Statement are negative. Constitutional: Denies: fever Eyes: Denies: eye pain ENT: Denies: ear pain Respiratory: Denies: cough Cardiovascular: Denies: chest pain Endocrine: Denies: fatigue Gastrointestinal: Denies: abdominal pain Genitourinary: Denies: dysuria Musculoskeletal: Reports: as per HPI Skin: Denies: rash Neurological: Reports: as per HPI. Denies: headache, weakness, confusion Past Medical History Past Medical History: Cancer, Chest Pain / Angina, COPD, GERD/Reflux, Hearing Disorder / Deafness, Hyperlipidemia, Hypertension, Osteoarthritis (OA), Prostate Disorder, Pulmonary Embolus (PE) Additional Past Medical History / Comment(s): Interstitial lung disease, pulmonary fibrosis, PE in 2012-pt cannot recall laterality, past home O2 use but none now, RIANA-cannot tolerate Cpap, prostate cancer with recent radiation treatment, skin cancer with removals, nephrolithiasis, migraines, compression fracture low back, bilateral elbow fractures with surgery, PUD, jaundiced as a child, [place] bilaterally. History of Any Multi-Drug Resistant Organisms: None Reported Past Surgical History: Appendectomy, Cholecystectomy, Heart Catheterization, Hernia Repair, Joint Replacement, Orthopedic Surgery Additional Past Surgical History / Comment(s): Prostate biopsy, L hand partial amp of 2 fingers, L knee ACL repair, R knee arthroscopy, bilateral total elbow replacements per pt, bilateral cataract removals, L inguinal hernia repair, cardiac caths x 2, EGD, colonoscopy, skin cancer removals. Past Anesthesia/Blood Transfusion Reactions: No Reported Reaction Past Psychological History: Anxiety, Depression Smoking Status: Former smoker Past Alcohol Use History: None Reported Past Drug Use History: None Reported - Past Family History Brother(s) Family Medical History: Cancer Additional Family Medical History / Comment(s): ONE BROTHER HAD LUNG CA & ANOTHER HAD MELANOMA Mother Family Medical History: AICD/Pacemaker Father Family Medical History: No Reported History Sister(s) Family Medical History: No Reported History General Exam Limitations: no limitations General appearance: alert, in no apparent distress Head exam: Present: normocephalic Eye exam: Present: normal appearance, PERRL, EOMI. Absent: nystagmus ENT exam: Present: normal oropharynx Neck exam: Present: normal inspection Respiratory exam: Present: normal lung sounds bilaterally Cardiovascular Exam: Present: regular rate, normal rhythm GI/Abdominal exam: Present: soft. Absent: tenderness Extremities exam: Present: normal inspection Neurological exam: Present: alert, oriented X3, CN II-XII intact (Except cannot completely rule out small amount of left facial droop. is present and does not feel there is any change from baseline.) Expanded Neurological exam: Present: protecting the airway Patient oriented to: Present: person, place, time Speech: Present: fluid speech Cranial nerves: EOM's Intact: Normal, Facial Sensation: Normal Sensory exam: Upper Extremity Light Touch: Normal, Lower Extremity Light Touch: Normal Motor strength exam: RUE: 5, LUE: 5, RLE: 5, LLE: 5 Eye Response: (4) open spontaneously Motor Response: (6) obeys commands Verbal Response: (5) oriented Psychiatric exam: Present: normal affect, normal mood Skin exam: Present: normal color Course Vital Signs 08/29/19 13:58 Temperature 98.0 F Pulse Rate 91 Respiratory 18 Rate Blood Pressure 173/88 O2 Sat by Pulse 93 L Oximetry EKG Findings - EKG Comments: EKG Findings:: Normal sinus rhythm and 90. AR 154. QRS 86. QT 344. QTC 420. Normal axis. Normal QRS. No acute ST change. Medical Decision Making - Medical Decision Making Patient reevaluated and resting comfortably in bed. Patient brings symptom- free. Case was discussed in detail with Dr. Hays who is familiar with the patient and the episode from the office. He does recommend discharge and follow-up the patient being the week. Patient and family are comfortable with this. They do request pain medication for his back pain prior to discharge. They do again confirm this is a chronic problem - Lab Data Result diagrams: 08/29/19 14:15 08/29/19 14:15 Lab Results 08/29/19 08/29/19 08/29/19 Range/Units 14:04 14:15 14:15 WBC 12.9 H (3.8-10.6) k/uL RBC 4.95 (4.30-5.90) m/uL Hgb 14.4 (13.0-17.5) gm/dL Hct 42.2 (39.0-53.0) % MCV 85.2 (80.0-100.0) fL MCH 29.1 (25.0-35.0) pg MCHC 34.2 (31.0-37.0) g/dL RDW 18.2 H (11.5-15.5) % Plt Count 512 H (150-450) k/uL Neutrophils % 79 % Lymphocytes % 11 % Monocytes % 3 % Eosinophils % 3 % Basophils % 1 % Neutrophils # 10.2 H (1.3-7.7) k/uL Lymphocytes # 1.4 (1.0-4.8) k/uL Monocytes # 0.4 (0-1.0) k/uL Eosinophils # 0.4 (0-0.7) k/uL Basophils # 0.1 (0-0.2) k/uL Manual Slide Review Performed Large Platelets Present Poikilocytosis Slight Anisocytosis Slight PT (9.0-12.0) sec INR (<1.2) APTT (22.0-30.0) sec Sodium 141 (137-145) mmol/L Potassium 5.0 (3.5-5.1) mmol/L Chloride 108 H (98-107) mmol/L Carbon Dioxide 24 (22-30) mmol/L Anion Gap 9 mmol/L BUN 38 H (9-20) mg/dL Creatinine 1.71 H (0.66-1.25) mg/dL Est GFR (CKD-EPI)AfAm 43 (>60 ml/min/1.73 sqM) Est GFR (CKD-EPI)NonAf 38 (>60 ml/min/1.73 sqM) Glucose 100 H (74-99) mg/dL POC Glucose (mg/dL) 109 H (75-99) mg/dL POC Glu [employer] [place] Calcium 9.1 (8.4-10.2) mg/dL Magnesium 2.1 (1.6-2.3) mg/dL Total Bilirubin 1.3 (0.2-1.3) mg/dL AST 48 (17-59) U/L ALT 43 (4-49) U/L Alkaline Phosphatase 213 H (38-126) U/L Troponin I (0.000-0.034) ng/mL Total Protein 7.0 (6.3-8.2) g/dL Albumin 4.1 (3.5-5.0) g/dL 08/29/19 08/29/19 Range/Units 14:15 14:15 WBC (3.8-10.6) k/uL RBC (4.30-5.90) m/uL Hgb (13.0-17.5) gm/dL Hct (39.0-53.0) % MCV (80.0-100.0) fL MCH (25.0-35.0) pg MCHC (31.0-37.0) g/dL RDW (11.5-15.5) % Plt Count (150-450) k/uL Neutrophils % % Lymphocytes % % Monocytes % % Eosinophils % % Basophils % % Neutrophils # (1.3-7.7) k/uL Lymphocytes # (1.0-4.8) k/uL Monocytes # (0-1.0) k/uL Eosinophils # (0-0.7) k/uL Basophils # (0-0.2) k/uL Manual Slide Review Large Platelets Poikilocytosis Anisocytosis PT 11.1 (9.0-12.0) sec INR 1.1 (<1.2) APTT 25.2 (22.0-30.0) sec Sodium (137-145) mmol/L Potassium (3.5-5.1) mmol/L Chloride (98-107) mmol/L Carbon Dioxide (22-30) mmol/L Anion Gap mmol/L BUN (9-20) mg/dL Creatinine (0.66-1.25) mg/dL Est GFR (CKD-EPI)AfAm (>60 ml/min/1.73 sqM) Est GFR (CKD-EPI)NonAf (>60 ml/min/1.73 sqM) Glucose (74-99) mg/dL POC Glucose (mg/dL) (75-99) mg/dL POC Glu [employer] ID Calcium (8.4-10.2) mg/dL Magnesium (1.6-2.3) mg/dL Total Bilirubin (0.2-1.3) mg/dL AST (17-59) U/L ALT (4-49) U/L Alkaline Phosphatase (38-126) U/L Troponin I 0.017 (0.000-0.034) ng/mL Total Protein (6.3-8.2) g/dL Albumin (3.5-5.0) g/dL - Radiology Data Radiology results: report reviewed (Computed tomography scan of the brain shows atrophy and chronic small vessel ischemic changes without acute process.) Disposition Clinical Impression: Unresponsive episode Disposition: HOME SELF-CARE Condition: Stable Instructions (If sedation given, give patient instructions): Syncope (ED) Additional Instructions: Please follow-up with primary care physician Sunday. Return for episodes of unresponsiveness, confusion, generalized shaking, worsening or changing symptoms or other concerns. Prescription sent to pharmacy Prescriptions: predniSONE [Deltasone] 20 mg PO BID #10 tab Is patient prescribed a controlled substance at d/c from ED?: No Referrals: Barrington Goyal Jr, DO [Primary Care Provider] - 1-2 days Time of Disposition: 16:01
[2019-08-29 14:49] LABS: INR 1.1 (<1.2); Partial Thromboplastin Time 25.2 sec (22.0-30.0); Prothrombin Time 11.1 sec (9.0-12.0)
[2019-08-29 14:52] LABS: Albumin 4.1 g/dL (3.5-5.0); Calcium 9.1 mg/dL (8.4-10.2); Magnesium 2.1 mg/dL (1.6-2.3); Total Bilirubin 1.3 mg/dL (0.2-1.3)
--- NOTE | 2019-08-29 15:07 | CT ---
EXAMINATION TYPE: CT brain wo con DATE OF EXAM: 08/29/2019 COMPARISON: 12/30/2010 HISTORY: Seizure activity. CT DLP: 1098.[address] of the brain was performed. The ventricles, basal cisterns and sulci overlying the cerebral convexities demonstrate mild enlargem ent. There is no evidence for intracranial hemorrhage or sulcal effacement. There is decreased attenuation about the periventricular white matter and deep white matter of both c erebral hemispheres, compatible with chronic small vessel ischemia. Differential diagnosis does inclu de demyelination. No mass effects are seen.No midline shift. 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 Osseous calvarium is intact. If symptoms persist consider MRI. IMPRESSION: 1. Age related atrophic and chronic small vessel ischemic change without acute intracranial process s een at this time.
[2019-08-29 15:09] LABS: Anisocytosis Slight; Basophils # (A) 0.1 k/uL (0-0.2); Basophils % (A) 1 %; Eosinophils # (A) 0.4 k/uL (0-0.7); Eosinophils % (A) 3 %; HCT 42.2 % (39.0-53.0); HGB 14.4 gm/dL (13.0-17.5); Lymphocytes # (A) 1.4 k/uL (1.0-4.8); Lymphocytes % (A) 11 %; MCH 29.1 pg (25.0-35.0); MCHC 34.2 g/dL (31.0-37.0); MCV 85.2 fL (80.0-100.0); Mean Platelet Volume 10.1; Monocytes # (A) 0.4 k/uL (0-1.0); Monocytes % (A) 3 %; Neutrophils # (A) 10.2 k/uL (1.3-7.7); Neutrophils % (A) 79 %; Platelet Count 512 k/uL (150-450); Poikilocytosis Slight; RBC 4.95 m/uL (4.30-5.90); RDW 18.2 % (11.5-15.5); WBC 12.9 k/uL (3.8-10.6)
[2019-08-29 15:17] LABS: Large Platelets Present
[2019-08-29] MEDS ORDERED: HYDROmorphone 0.5 MG/0.5 ML SYRINGE IVP STA (16:02)
[2019-08-29 16:03] VITALS: BP 148/79; PULSE 95; RESP 17
[2019-08-29] MEDS ORDERED: ORPHENADRINE 30 MG/ML 2 ML VIAL IVP STA (16:03)
[2019-08-29 17:04] VITALS: TEMP 98.2
== END 2019-08-29 17:04 | disposition home or self-care (01) ==
LOC: EC 13:51
DX: R41.89 Other symptoms and signs involving cognitive functions and awareness (principal); R56.9 Unspecified convulsions; R42 Dizziness and giddiness; R53.83 Other fatigue; F41.9 Anxiety disorder, unspecified; F32.9 Major depressive disorder, single episode, unspecified; I10 Essential (primary) hypertension; G47.33 Obstructive sleep apnea (adult) (pediatric); Z79.899 Other long term (current) drug therapy; Z86.711 Personal history of pulmonary embolism; Z87.891 Personal history of nicotine dependence; Z96.621 Presence of right artificial elbow joint; Z96.622 Presence of left artificial elbow joint; Z85.828 Personal history of other malignant neoplasm of skin; Z85.46 Personal history of malignant neoplasm of prostate
CPT/HCPCS: 36415; 93005; 80053; 83735; 84484; 85025; 85610; 85730; 70450; 99285; 96374; 96375; J2360; J1170

== ENCOUNTER → 2019-10-01 | Outpatient (CLI) | payer MEDICARE | END | disposition home or self-care (01) | LOC: LABWHC1 10:14 | PROVIDERS: ATTEND Radiology Radiation Oncology | DX: C61 Malignant neoplasm of prostate (principal); Z92.3 Personal history of irradiation; Z87.891 Personal history of nicotine dependence | CPT/HCPCS: 36415; 84153 ==

== ENCOUNTER 2019-11-21 17:50 | Emergency (ER) | payer MEDICARE ==
[2019-11-21 18:00] VITALS: RESP 18
[2019-11-21] MEDS ORDERED: MORPHINE SULFATE 4 MG/ML SYRINGE IV STA (18:11)
[2019-11-21] MEDS ORDERED: LIDOCAINE URO-JET JELLY 2% 5 ML KIT URETHRAL ONE (18:17)
--- NOTE | 2019-11-21 18:19 | ED ---
Male Urogenital HPI - General Chief complaint: Urogenital Stated complaint: Male Time Seen by Provider: 11/21/19 18:02 Source: patient Mode of arrival: wheelchair Limitations: no limitations - History of Present Illness Initial comments: Patient is a 71-year-old male with past nuchal history of prostate cancer in remission, hyperlipidemia, hypertension who presents to the emergency department with reported suprapubic urethral pain. Patient reports that his pain started last night after he got back into town. He called his urologist office. He followed Dr. Mayes at 10:00 am today. He performed meatal dilation as her was concerned that he was retaining. Patient was sent home and stated that his pain was somewhat improved. Pain then returned and states to excruciating at this time. States that it is in the tip of his penis as well as the suprapubic region. He has a history of prostate cancer however is in remission. He had a radiation treatment. Does have issues with retention however has never been this bad. States that he's been voiding very small amounts and it's been bloody. Patient is on any blood thinners. He denies any fevers or chills. No back or flank pain. No nausea or vomiting. Denies constipation. No other alleviating, precipitating or modifying factors - Related Data Home Medications Medication Instructions Recorded Confirmed LORazepam [Ativan] 0.5 mg PO TID PRN 01/21/14 12/12/18 Sertraline [Zoloft] 25 mg PO HS 01/21/14 12/12/18 amLODIPine [Norvasc] 10 mg PO HS 01/21/14 12/12/18 Metoprolol Succinate (ER) [Toprol 25 mg PO DAILY 03/08/16 12/12/18 Xl] Pantoprazole Sodium [Protonix] 40 mg PO DAILY 03/08/16 12/12/18 Cholecalciferol [Vitamin D3 (25 1,000 unit PO DAILY 12/12/18 12/12/18 Mcg = 1000 Iu)] Vit C/E/Zn/Coppr/Lutein/Zeaxan 1 cap PO BID 12/12/18 12/12/18 [Preservision Areds 2 Softgel] calcium polycarbophiL [Fibercon] 625 mg PO DAILY 12/12/18 12/12/18 Previous Rx's Medication Instructions Recorded HYDROcodone/APAP 5-325MG [[place] 1 tab PO Q6HR PRN 3 Days #12 tab 12/12/18 5-325] Ondansetron Odt [Zofran Odt] 4 mg PO Q8HR PRN #12 tab 12/12/18 predniSONE [Deltasone] 20 mg PO BID #10 tab 08/29/19 Acetaminophen-Codeine 300-30mg 1 tab PO Q6H PRN 3 Days #12 tablet 11/21/19 [Tylenol w/codeine #3] Allergies Allergy/AdvReac Type Severity Reaction Status Date / Time No Known Allergies Allergy Verified 11/22/19 20:43 Review of Systems ROS Statement: Those systems with pertinent positive or pertinent negative responses have been documented in the HPI. ROS Other: All systems not noted in ROS Statement are negative. Past Medical History Past Medical History: Cancer, Chest Pain / Angina, COPD, GERD/Reflux, Hearing Disorder / Deafness, Hyperlipidemia, Hypertension, Osteoarthritis (OA), Prostate Disorder, Pulmonary Embolus (PE) Additional Past Medical History / Comment(s): Interstitial lung disease, pulmonary fibrosis, PE in 2011-pt cannot recall laterality, past home O2 use but none now, RIANA-cannot tolerate Cpap, prostate cancer with recent radiation treatment, skin cancer with removals, nephrolithiasis, migraines, compression fracture low back, bilateral elbow fractures with surgery, PUD, jaundiced as a child, [place] bilaterally. History of Any Multi-Drug Resistant Organisms: None Reported Past Surgical History: Appendectomy, Cholecystectomy, Heart Catheterization, Hernia Repair, Joint Replacement, Orthopedic Surgery Additional Past Surgical History / Comment(s): Prostate biopsy, L hand partial amp of 2 fingers, L knee ACL repair, R knee arthroscopy, bilateral total elbow replacements per pt, bilateral cataract removals, L inguinal hernia repair, cardiac caths x 2, EGD, colonoscopy, skin cancer removals. Past Anesthesia/Blood Transfusion Reactions: No Reported Reaction Past Psychological History: Anxiety, Depression Smoking Status: Never smoker Past Alcohol Use History: None Reported Past Drug Use History: None Reported - Past Family History Brother(s) Family Medical History: Cancer Additional Family Medical History / Comment(s): ONE BROTHER HAD LUNG CA & ANOTHER HAD MELANOMA Mother Family Medical History: AICD/Pacemaker Father Family Medical History: No Reported History Sister(s) Family Medical History: No Reported History General Exam Limitations: no limitations General appearance: alert, in distress Head exam: Present: atraumatic, normocephalic, normal inspection Eye exam: Present: normal appearance, PERRL, EOMI. Absent: scleral icterus, conjunctival injection, periorbital swelling ENT exam: Present: normal exam, mucous membranes moist Neck exam: Present: normal inspection. Absent: tenderness, meningismus, lymphadenopathy Respiratory exam: Present: normal lung sounds bilaterally. Absent: respiratory distress, wheezes, rales, rhonchi, stridor Cardiovascular Exam: Present: regular rate, normal rhythm, normal heart sounds. Absent: systolic murmur, diastolic murmur, rubs, gallop, clicks GI/Abdominal exam: Present: soft, distended (suprapubic), tenderness (suprapubic), normal bowel sounds. Absent: guarding, rebound, rigid Extremities exam: Present: normal inspection, full ROM, normal capillary refill. Absent: tenderness, pedal edema, joint swelling, calf tenderness Back exam: Present: normal inspection Neurological exam: Present: alert, oriented X3, CN II-XII intact Psychiatric exam: Present: normal affect, anxious Skin exam: Present: warm, dry, intact, normal color. Absent: rash Course Vital Signs 11/21/19 11/21/19 11/21/19 17:57 19:31 20:37 Temperature 97.6 F 98.5 F Pulse Rate 96 84 35 L Respiratory 18 18 18 Rate Blood Pressure 148/92 134/82 131/75 O2 Sat by Pulse 96 94 L 98 Oximetry - Reevaluation(s) Reevaluation #1: 11/21/19 18:[address] Rooln who agreed to placement of a Doran catheter at this time Medical Decision Making - Medical Decision Making Upon arrival patient is placed in room 5. A thorough history and physical exam was performed. Patient's bladder scan does have 800 mL of urine in his bladder. IV was placed and the patient was given pain medication. I did discuss case with Dr. Mayes who stated it was okay to pass a Doran. Laboratory studies were conducted and a KUB was ordered.Laboratory studies demonstrate a white blood cell count of 19.3. If creatinine is 2.1 which is near the patient's baseline. UA is positive for greater than 182 red blood cells and 111 white blood cells. KUB is performed which demonstrates no acute process. Splenomegaly. The patient does have 800 mL of bloody urine out of his Doran. Patient has complete resolution of his pain. I did discuss the diagnosis, diffe rential treatment options. I did recommend treating the patient with antibiotics because of his recent procedure and leukocytosis. Patient was already prescribed antibiotics by Dr. Rolon. He did provide the patient with a dose of Rocephin emergency department recommended they start the prescription by Dr. Rolon tomorrow. He will also be given Tylenol 3 for pain control. Patient is sent with a starter pack to go home with. Side effect profile discuss the patient the patient understood. The patient is a new or worsening symptoms she should return to the emergency room. Patient was discharged home in stable condition - Lab Data Result diagrams: 11/21/19 18:35 11/21/19 18:35 Lab Results 11/21/19 11/21/19 11/21/19 Range/Units 18:35 18:35 18:35 WBC 19.3 H (3.8-10.6) k/uL RBC 4.67 (4.30-5.90) m/uL Hgb 13.0 (13.0-17.5) gm/dL Hct 39.4 (39.0-53.0) % MCV 84.3 (80.0-100.0) fL MCH 27.9 (25.0-35.0) pg MCHC 33.1 (31.0-37.0) g/dL RDW 18.6 H (11.5-15.5) % Plt Count 386 (150-450) k/uL Neutrophils % Not Reportable Neutrophils % (Manual) 86 % Band Neutrophils % 4 % Lymphocytes % Not Reportable Lymphocytes % (Manual) 6 % Monocytes % Not Reportable Monocytes % (Manual) 1 % Eosinophils % Not Reportable Eosinophils % (Manual) 3 % Basophils % Not Reportable Neutrophils # Not Reportable Neutrophils # (Manual) 17.30 H (1.3-7.7) k/uL Lymphocytes # Not Reportable Lymphocytes # (Manual) 1.16 (1.0-4.8) k/uL Monocytes # Not Reportable Monocytes # (Manual) 0.19 (0-1.0) k/uL Eosinophils # Not Reportable Eosinophils # (Manual) 0.58 (0-0.7) k/uL Basophils # Not Reportable Nucleated RBCs 0 (0-0) /100 WBC Manual Slide Review Performed Polychromasia Present Poikilocytosis Slight Anisocytosis Slight Anisocytosis (manual) Present PT (9.0-12.0) sec INR (<1.2) APTT (22.0-30.0) sec Sodium 139 (137-145) mmol/L Potassium 4.8 (3.5-5.1) mmol/L Chloride 108 H (98-107) mmol/L Carbon Dioxide 21 L (22-30) mmol/L Anion Gap 10 mmol/L BUN 40 H (9-20) mg/dL Creatinine 2.10 H (0.66-1.25) mg/dL Est GFR (CKD-EPI)AfAm 34 (>60 ml/min/1.73 sqM) Est GFR (CKD-EPI)NonAf 29 (>60 ml/min/1.73 sqM) Glucose 135 H (74-99) mg/dL Calcium 9.2 (8.4-10.2) mg/dL Total Bilirubin 1.6 H (0.2-1.3) mg/dL AST 38 (17-59) U/L ALT 32 (4-49) U/L Alkaline Phosphatase 210 H (38-126) U/L Total Protein 6.8 (6.3-8.2) g/dL Albumin 4.3 (3.5-5.0) g/dL Urine Color Red Urine Appearance Bloody (Clear) Urine RBC >182 H (0-5) /hpf Urine WBC 111 H (0-5) /hpf 11/21/19 Range/Units 18:35 WBC (3.8-10.6) k/uL RBC (4.30-5.90) m/uL Hgb (13.0-17.5) gm/dL Hct (39.0-53.0) % MCV (80.0-100.0) fL MCH (25.0-35.0) pg MCHC (31.0-37.0) g/dL RDW (11.5-15.5) % Plt Count (150-450) k/uL Neutrophils % Neutrophils % (Manual) % Band Neutrophils % % Lymphocytes % Lymphocytes % (Manual) % Monocytes % Monocytes % (Manual) % Eosinophils % Eosinophils % (Manual) % Basophils % Neutrophils # Neutrophils # (Manual) (1.3-7.7) k/uL Lymphocytes # Lymphocytes # (Manual) (1.0-4.8) k/uL Monocytes # Monocytes # (Manual) (0-1.0) k/uL Eosinophils # Eosinophils # (Manual) (0-0.7) k/uL Basophils # Nucleated RBCs (0-0) /100 WBC Manual Slide Review Polychromasia Poikilocytosis Anisocytosis Anisocytosis (manual) PT 11.2 (9.0-12.0) sec INR 1.1 (<1.2) APTT 26.1 (22.0-30.0) sec Sodium (137-145) mmol/L Potassium (3.5-5.1) mmol/L Chloride (98-107) mmol/L Carbon Dioxide (22-30) mmol/L Anion Gap mmol/L BUN (9-20) mg/dL Creatinine (0.66-1.25) mg/dL Est GFR (CKD-EPI)AfAm (>60 ml/min/1.73 sqM) Est GFR (CKD-EPI)NonAf (>60 ml/min/1.73 sqM) Glucose (74-99) mg/dL Calcium (8.4-10.2) mg/dL Total Bilirubin (0.2-1.3) mg/dL AST (17-59) U/L ALT (4-49) U/L Alkaline Phosphatase (38-126) U/L Total Protein (6.3-8.2) g/dL Albumin (3.5-5.0) g/dL Urine Color Urine Appearance (Clear) Urine RBC (0-5) /hpf Urine WBC (0-5) /hpf Disposition Clinical Impression: Urinary retention, Hematuria Disposition: HOME SELF-CARE Condition: Stable Instructions (If sedation given, give patient instructions): Urinary Retention in Men (ED) Additional Instructions: Please call on Sunday and make an appointment with Dr. Rolon. Catheter will have to remain in place for up to a week. Return to the emergency room for any new or worsening symptoms. take the antibiotic you were prescribed by Dr. Rolon Prescriptions: Acetaminophen-Codeine 300-30mg [Tylenol w/codeine #3] 1 tab PO Q6H PRN 3 Days #12 tablet PRN Reason: Pain Is patient prescribed a controlled substance at d/c from ED?: Yes When asked, does pt state using other controlled substances?: No If prescribed controlled substance>3 days was MAPS reviewed?: Prescribed <3 Days If opioid is for acute pain is fill amount 7 days or less?: Yes If Rx opioid, was Start Talking consent form obtained?: Yes Referrals: Barrington Goyal Jr, DO [Primary Care Provider] - 1-2 days Horace Rolon MD [Family Provider] - 1-2 days Time of Disposition: 20:09
[2019-11-21 18:55] LABS: INR 1.1 (<1.2); Partial Thromboplastin Time 26.1 sec (22.0-30.0); Prothrombin Time 11.2 sec (9.0-12.0)
[2019-11-21 18:59] LABS: Albumin 4.3 g/dL (3.5-5.0); Calcium 9.2 mg/dL (8.4-10.2); Potassium 4.8 mmol/L (3.5-5.1); Total Bilirubin 1.6 mg/dL (0.2-1.3); Total Protein 6.8 g/dL (6.3-8.2)
--- NOTE | 2019-11-21 19:12 | XR ---
EXAMINATION TYPE: XR KUB DATE OF EXAM: 11/21/2019 COMPARISON: 12/12/2018 HISTORY: Abdominal pain TECHNIQUE: 2 views supine FINDINGS: Spleen appears enlarged and measures almost 20 cm in length. There are clips from cholecyst ectomy. There is no sign of intestinal obstruction or pneumoperitoneum. Fecal pattern is normal. Ther e are numerous surgical clips in the pelvis. There are no pathologic calcifications over the kidneys. IMPRESSION: Splenomegaly that appears new compared to old exam. No free air. No bowel obstruction.
[2019-11-21 19:17] LABS: Anisocytosis Slight; HCT 39.4 % (39.0-53.0); MCH 27.9 pg (25.0-35.0); MCHC 33.1 g/dL (31.0-37.0); MCV 84.3 fL (80.0-100.0); Mean Platelet Volume 11.1; Platelet Count 386 k/uL (150-450); Poikilocytosis Slight; RBC 4.67 m/uL (4.30-5.90); RDW 18.6 % (11.5-15.5); WBC 19.3 k/uL (3.8-10.6)
[2019-11-21 19:32] LABS: RBC,Urine >182 /hpf (0-5); WBC,Urine 111 /hpf (0-5)
[2019-11-21 19:33] LABS: Color,Urine Red
[2019-11-21 19:34] LABS: Appearance,Urine Bloody (Clear)
[2019-11-21] MEDS ORDERED: cefTRIAXone IN SWFI 1,000 MG/10 ML SYRINGE IVP STA (19:36)
[2019-11-21] MEDS ORDERED: ACET/COD 300 MG/30 MG STARTER PACK 6 TAB BTL PO STA (20:04)
[2019-11-21 20:05] LABS: Anisocytosis (M) Present; Band Neutrophils % 4 %; Eosinophils # (M) 0.58 k/uL (0-0.7); Lymphocytes # (M) 1.16 k/uL (1.0-4.8); Monocytes # (M) 0.19 k/uL (0-1.0); Neutrophils % (M) 86 %; Nucleated Red Blood Cells 0 /100 WBC (0-0); Polychromasia Present; Total Cells Counted 100
[2019-11-21 20:38] VITALS: BP 131/75; PULSE 35; TEMP 98.5
== END 2019-11-21 20:39 | disposition home or self-care (01) ==
LOC: EC 17:50
DX: R33.9 Retention of urine, unspecified (principal); R31.9 Hematuria, unspecified; D72.829 Elevated white blood cell count, unspecified; F41.9 Anxiety disorder, unspecified; F32.9 Major depressive disorder, single episode, unspecified; I10 Essential (primary) hypertension; K21.9 Gastro-esophageal reflux disease without esophagitis; M19.90 Unspecified osteoarthritis, unspecified site; I25.2 Old myocardial infarction; Z79.899 Other long term (current) drug therapy; Z86.711 Personal history of pulmonary embolism; Z92.3 Personal history of irradiation; Z85.828 Personal history of other malignant neoplasm of skin; Z95.5 Presence of coronary angioplasty implant and graft; Z85.46 Personal history of malignant neoplasm of prostate; Z96.622 Presence of left artificial elbow joint; Z96.621 Presence of right artificial elbow joint; Z98.890 Other specified postprocedural states
CPT/HCPCS: 51798; 36415; 80053; 85025; 85610; 85730; 81001; 87086; 74018; 96374; 96375; 99284; J2270; J0696

== ENCOUNTER 2019-11-22 02:08 | Emergency (ER) | payer MEDICARE ==
[2019-11-22 02:16] VITALS: RESP 18
[2019-11-22 04:10] VITALS: BP 141/68; PULSE 91; TEMP 97.6
--- NOTE | 2019-11-22 05:24 | ED ---
Male Urogenital HPI - General Chief complaint: Urogenital Stated complaint: revisit-catheter issue Time Seen by Provider: 11/22/19 02:20 Source: patient, family Mode of arrival: wheelchair Limitations: no limitations - History of Present Illness Initial comments: This patient is 79-year-old man who presents to be evaluated for Doran catheter obstruction. The patient relates that he had gone to see Dr. Mayes in the clinic for difficulty with urination. He had a procedure in the office and then a Doran catheter was placed. The patient had come in to the emergency department yesterday in the evening for an obstruction and this was cleared area he went home and then over the course of tonight he developed suprapubic pressure pain became severe and they noted that there was no urine flowing. No fever or chills. MD Complaint: other -: hour(s) Location: abdomen Radiation: none Severity: severe Quality: aching Consistency: constant Improves with: none Worsens with: none indwelling catheter Reports: urinary retention, blood in urine - Related Data Home Medications Medication Instructions Recorded Confirmed LORazepam [Ativan] 0.5 mg PO TID PRN 01/21/14 12/12/18 Sertraline [Zoloft] 25 mg PO HS 01/21/14 12/12/18 amLODIPine [Norvasc] 10 mg PO HS 01/21/14 12/12/18 Metoprolol Succinate (ER) [Toprol 25 mg PO DAILY 03/08/16 12/12/18 Xl] Pantoprazole Sodium [Protonix] 40 mg PO DAILY 03/08/16 12/12/18 Cholecalciferol [Vitamin D3 (25 1,000 unit PO DAILY 12/12/18 12/12/18 Mcg = 1000 Iu)] Vit C/E/Zn/Coppr/Lutein/Zeaxan 1 cap PO BID 12/12/18 12/12/18 [Preservision Areds 2 Softgel] calcium polycarbophiL [Fibercon] 625 mg PO DAILY 12/12/18 12/12/18 Previous Rx's Medication Instructions Recorded HYDROcodone/APAP 5-325MG [[place] 1 tab PO Q6HR PRN 3 Days #12 tab 12/12/18 5-325] Ondansetron Odt [Zofran Odt] 4 mg PO Q8HR PRN #12 tab 12/12/18 predniSONE [Deltasone] 20 mg PO BID #10 tab 08/29/19 Acetaminophen-Codeine 300-30mg 1 tab PO Q6H PRN 3 Days #12 tablet 11/21/19 [Tylenol w/codeine #3] Allergies Allergy/AdvReac Type Severity Reaction Status Date / Time No Known Allergies Allergy Verified 11/21/19 17:59 Review of Systems ROS Statement: Those systems with pertinent positive or pertinent negative responses have been documented in the HPI. ROS Other: All systems not noted in ROS Statement are negative. Constitutional: Denies: fever, chills Respiratory: Denies: cough, dyspnea Cardiovascular: Denies: chest pain, palpitations, edema Gastrointestinal: Reports: as per HPI, abdominal pain. Denies: nausea, vomiting, diarrhea, constipation Genitourinary: Reports: as per HPI, hematuria, other (Catheter obstruction). Denies: testicular pain Musculoskeletal: Denies: back pain Skin: Denies: rash Neurological: Denies: headache Past Medical History Past Medical History: Cancer, Chest Pain / Angina, COPD, GERD/Reflux, Hearing Disorder / Deafness, Hyperlipidemia, Hypertension, Osteoarthritis (OA), Prostate Disorder, Pulmonary Embolus (PE) Additional Past Medical History / Comment(s): Interstitial lung disease, pulmonary fibrosis, PE in 2012-pt cannot recall laterality, past home O2 use but none now, RIANA-cannot tolerate Cpap, prostate cancer with recent radiation treatment, skin cancer with removals, nephrolithiasis, migraines, compression fracture low back, bilateral elbow fractures with surgery, PUD, jaundiced as a child, [place] bilaterally. History of Any Multi-Drug Resistant Organisms: None Reported Past Surgical History: Appendectomy, Cholecystectomy, Heart Catheterization, Hernia Repair, Joint Replacement, Orthopedic Surgery Additional Past Surgical History / Comment(s): Prostate biopsy, L hand partial amp of 2 fingers, L knee ACL repair, R knee arthroscopy, bilateral total elbow replacements per pt, bilateral cataract removals, L inguinal hernia repair, cardiac caths x 2, EGD, colonoscopy, skin cancer removals. Past Anesthesia/Blood Transfusion Reactions: No Reported Reaction Past Psychological History: Anxiety, Depression Smoking Status: Never smoker Past Alcohol Use History: None Reported Past Drug Use History: None Reported - Past Family History Brother(s) Family Medical History: Cancer Additional Family Medical History / Comment(s): ONE BROTHER HAD LUNG CA & ANOTHER HAD MELANOMA Mother Family Medical History: AICD/Pacemaker Father Family Medical History: No Reported History Sister(s) Family Medical History: No Reported History General Exam Limitations: no limitations General appearance: alert, in no apparent distress Head exam: Present: atraumatic, normocephalic Eye exam: Present: normal appearance. Absent: scleral icterus, conjunctival injection Respiratory exam: Present: normal lung sounds bilaterally. Absent: respiratory distress, wheezes, rales, rhonchi, stridor Cardiovascular Exam: Present: regular rate, normal rhythm, normal heart sounds. Absent: systolic murmur, diastolic murmur, rubs, gallop GI/Abdominal exam: Present: soft, tenderness, guarding, other (Patient has suprapubic fullness and guarding consistent with distended bladder). Absent: distended, rebound, rigid, mass Extremities exam: Present: normal inspection, normal capillary refill. Absent: pedal edema, calf tenderness Neurological exam: Present: alert Skin exam: Present: warm, dry, intact, normal color. Absent: rash Course Vital Signs 11/22/19 11/22/19 02:13 04:07 Temperature 97.6 F Pulse Rate 95 91 Respiratory 18 18 Rate Blood Pressure 153/78 141/68 O2 Sat by Pulse 100 92 L Oximetry Medical Decision Making - Medical Decision Making Patient 79-year-old man with blood clots obstructing the Doran catheter outflow. On arrival he had approximately 600 mLs of urine. Nursing staff was able to flush the patient's catheter and restore flow. Case discussed with Dr. Rolon, who requested that patient be observed in the emergency department for approximately 2 hours after an ensure that it did not clot again. The patient did have continued urine flow and discharged to follow-up in clinic. Disposition Clinical Impression: Urinary retention, Doran catheter problem Disposition: HOME SELF-CARE Condition: Good Instructions (If sedation given, give patient instructions): Urinary Retention in Men (ED) Is patient prescribed a controlled substance at d/c from ED?: No Referrals: Barrington Goyal Jr, DO [Primary Care Provider] - 1-2 days Horace Rolon MD [STAFF PHYSICIAN] - 1-2 days
== END 2019-11-22 06:46 | disposition home or self-care (01) ==
LOC: EC 02:08
DX: R33.9 Retention of urine, unspecified (principal); T83.018A Breakdown (mechanical) of other urinary catheter, initial encounter; F41.9 Anxiety disorder, unspecified; F32.9 Major depressive disorder, single episode, unspecified; I10 Essential (primary) hypertension; K21.9 Gastro-esophageal reflux disease without esophagitis; I25.2 Old myocardial infarction; Z79.899 Other long term (current) drug therapy; Z85.46 Personal history of malignant neoplasm of prostate; Z92.3 Personal history of irradiation; Z86.711 Personal history of pulmonary embolism; Z85.828 Personal history of other malignant neoplasm of skin; Z95.5 Presence of coronary angioplasty implant and graft; Z96.621 Presence of right artificial elbow joint; Z96.622 Presence of left artificial elbow joint; Z98.890 Other specified postprocedural states
CPT/HCPCS: 99283

== ENCOUNTER 2019-11-22 20:31 | Emergency (ER) | payer MEDICARE ==
[2019-11-22 20:43] VITALS: RESP 18; TEMP 98.1
--- NOTE | 2019-11-22 21:11 | ED ---
General Adult HPI - General Chief complaint: Urogenital Stated complaint: Cath Problems Time Seen by Provider: 11/22/19 20:44 Source: patient, family Mode of arrival: wheelchair - History of Present Illness Initial comments: Dictation was produced using [employer] dictation software. please excuse any grammatical, word or spelling errors. This patient was cared for during a federal and state declared state of emergency secondary to Covid 19 Chief Complaint:79-year-old male presents for Doran catheter malfunction History of Present Illness: 71-year-old male was just in emergency department yesterday. Patient recently had prostate procedure performed. He was seen yesterday twice for Doran catheter issues. Patient states since being discharged yesterday his Doran catheter stop draining. Patient went allegedly had a prostate procedure done in the office by Dr. Tay where the initial Doran catheter was placed after the procedure. The ROS documented in this emergency department record has been reviewed and confirmed by me. Those systems with pertinent positive or negative responses have been documented in the HPI. All other systems are other negative and/or noncontributory. PHYSICAL EXAM: General Impression: Alert and oriented x3, not in acute distress HEENT: Normocephalic atraumatic, extra-ocular movements intact, pupils equal and reactive to light bilaterally, mucous membranes moist. Cardiovascular: Heart regular rate and rhythm Chest: Able to complete full sentences, no retractions, no tachypnea Abdomen: abdomen soft, non-tender, non-distended, no organomegaly Musculoskeletal: Pulses present and equal in all extremities, no peripheral edema Motor: no focal deficits noted Neurological: CN II-XII grossly intact, no focal motor or sensory deficits noted Skin: Intact with no visualized rashes Psych: Normal affect and mood : Doran catheter in place, fully reservoir shows no contents. There is however some dried blood resident ED course: 79 y Old male with Doran catheter malfunction. There is concern that patient has clotted Doran catheter. Signs upon arrival are within acceptable limits. Fully catheter was replaced and nurse flushed out clots using Lyric syringe. Several clots were removed until drainage was clear. Patient experienced significant relief. Nurse who treated patient today was very familiar with patient from yesterday. Nurse reports that his ranges a lot more benign appearing than yesterday. Patient has an appointment with Dr. Tay on Sunday. Patient family member agreeable to be discharged home. Return parameters discussed per dentist and that there is a chance that he may have to come back to the emergency department tomorrow. - Related Data Home Medications Medication Instructions Recorded Confirmed LORazepam [Ativan] 0.5 mg PO TID PRN 01/21/14 12/12/18 Sertraline [Zoloft] 25 mg PO HS 01/21/14 12/12/18 amLODIPine [Norvasc] 10 mg PO HS 01/21/14 12/12/18 Metoprolol Succinate (ER) [Toprol 25 mg PO DAILY 03/08/16 12/12/18 Xl] Pantoprazole Sodium [Protonix] 40 mg PO DAILY 03/08/16 12/12/18 Cholecalciferol [Vitamin D3 (25 1,000 unit PO DAILY 12/12/18 12/12/18 Mcg = 1000 Iu)] Vit C/E/Zn/Coppr/Lutein/Zeaxan 1 cap PO BID 12/12/18 12/12/18 [Preservision Areds 2 Softgel] calcium polycarbophiL [Fibercon] 625 mg PO DAILY 12/12/18 12/12/18 Previous Rx's Medication Instructions Recorded HYDROcodone/APAP 5-325MG [Byers 1 tab PO Q6HR PRN 3 Days #12 tab 12/12/18 5-325] Ondansetron Odt [Zofran Odt] 4 mg PO Q8HR PRN #12 tab 12/12/18 predniSONE [Deltasone] 20 mg PO BID #10 tab 08/29/19 Acetaminophen-Codeine 300-30mg 1 tab PO Q6H PRN 3 Days #12 tablet 11/21/19 [Tylenol w/codeine #3] Allergies Allergy/AdvReac Type Severity Reaction Status Date / Time No Known Allergies Allergy Verified 11/22/19 20:43 Review of Systems ROS Statement: Those systems with pertinent positive or pertinent negative responses have been documented in the HPI. ROS Other: All systems not noted in ROS Statement are negative. Past Medical History Past Medical History: Cancer, Chest Pain / Angina, COPD, GERD/Reflux, Hearing Disorder / Deafness, Hyperlipidemia, Hypertension, Osteoarthritis (OA), Prostate Disorder, Pulmonary Embolus (PE) Additional Past Medical History / Comment(s): Interstitial lung disease, pulmonary fibrosis, PE in 2012-pt cannot recall laterality, past home O2 use but none now, RIANA-cannot tolerate Cpap, prostate cancer with recent radiation treatment, skin cancer with removals, nephrolithiasis, migraines, compression fracture low back, bilateral elbow fractures with surgery, PUD, jaundiced as a child, [place] bilaterally. History of Any Multi-Drug Resistant Organisms: None Reported Past Surgical History: Appendectomy, Cholecystectomy, Heart Catheterization, Hernia Repair, Joint Replacement, Orthopedic Surgery Additional Past Surgical History / Comment(s): Prostate biopsy, L hand partial amp of 2 fingers, L knee ACL repair, R knee arthroscopy, bilateral total elbow replacements per pt, bilateral cataract removals, L inguinal hernia repair, cardiac caths x 2, EGD, colonoscopy, skin cancer removals. Past Anesthesia/Blood Transfusion Reactions: No Reported Reaction Past Psychological History: Anxiety, Depression Smoking Status: Never smoker Past Alcohol Use History: None Reported Past Drug Use History: None Reported - Past Family History Brother(s) Family Medical History: Cancer Additional Family Medical History / Comment(s): ONE BROTHER HAD LUNG CA & ANOTHER HAD MELANOMA Mother Family Medical History: AICD/Pacemaker Father Family Medical History: No Reported History Sister(s) Family Medical History: No Reported History Course Vital Signs 11/22/19 20:40 Temperature 98.1 F Pulse Rate 103 H Respiratory 18 Rate Blood Pressure 134/64 O2 Sat by Pulse 97 Oximetry Disposition Clinical Impression: Urinary retention Disposition: HOME SELF-CARE Condition: Good Instructions (If sedation given, give patient instructions): Urinary Retention in Men (ED) Is patient prescribed a controlled substance at d/c from ED?: No Referrals: Horace Rolon MD [STAFF PHYSICIAN] - 1-2 days Time of Disposition: 21:58
[2019-11-22 22:18] VITALS: BP 141/76; PULSE 81
== END 2019-11-22 22:18 | disposition home or self-care (01) ==
LOC: EC 20:31
DX: R33.9 Retention of urine, unspecified (principal); I10 Essential (primary) hypertension; K21.9 Gastro-esophageal reflux disease without esophagitis; F41.9 Anxiety disorder, unspecified; F32.9 Major depressive disorder, single episode, unspecified; G47.33 Obstructive sleep apnea (adult) (pediatric); Z79.899 Other long term (current) drug therapy; Z85.828 Personal history of other malignant neoplasm of skin; Z86.711 Personal history of pulmonary embolism; Z85.46 Personal history of malignant neoplasm of prostate; Z99.89 Dependence on other enabling machines and devices
CPT/HCPCS: 51702; 99283

== ENCOUNTER → 2019-12-15 | Outpatient (CLI) | payer MEDICARE ==
[2019-12-15 20:38] LABS: Total Volume 24 Hour,Urine 1700 mL
[2019-12-15 20:58] LABS: Total Protein 24 Hour,Urine 382.5 mg/24Hr
[2019-12-15 21:22] LABS: Creatinine 24 Hour,Urine 1.04 g/24Hr (1.00-2.00)
== END | disposition home or self-care (01) ==
LOC: LABWHC1 08:07
PROVIDERS: ATTEND Nurse Practitioner Family
DX: N17.9 Acute kidney failure, unspecified (principal)
CPT/HCPCS: 81050; 82570; 84156

== ENCOUNTER → 2019-12-24 | Outpatient (CLI) | payer MEDICARE ==
--- NOTE | 2019-12-24 16:47 | US ---
EXAMINATION TYPE: US kidneys/renal and bladder DATE OF EXAM: 12/24/2019 COMPARISON: US and CT CLINICAL HISTORY: N17.9 Acute kidney failure, unspecified. Radiation to prostate 2 years ago EXAM MEASUREMENTS: Right Kidney: 8.5 x 4.3 x 3.8 cm Left Kidney: 10.5 x 3.7 x 4.9 cm Post Void Residual Volume: 27.3 mL Right Kidney: lateral cortical cyst seen = 0.7 x 0.7 x 0.7cm; smaller than left kidney Left Kidney: lower pole parallel hyperechoic focus is seen Bladder: nonmobile, hyperechoic, parallel and layered linear focus is noted at inferior bladder/ pros mckeon interface. Bladder was imaged after patient had partially voided prior to US. Bilateral Jets seen: no, only left ureteral jet was seen within 3 minute observation Normal Post Void Residual: yes, as volume is less than 50.0ml INCIDENTAL FINDING OF ENLARGED SPLEEN IS NOTED = 18.1 X 18.0 X 9.8CM. (PATIENT IS UNAWARE OF ENLARGED SPLEEN). IMPRESSION: 1. Splenomegaly 2. No hydronephrosis or nephrolithiasis. Hypoechoic right renal lesion is too small to accurately mohinder racterize but likely related to a simple cyst. 3. Linear nonmobile hyperechoic focus within the bladder at the bladder prostate interface is nonspec ific. Prostate calcification impressing upon the bladder may be the most likely etiology. 4. Tiny nonobstructing left renal calculus.
== END | disposition home or self-care (01) ==
LOC: RADUSWWP 15:33
PROVIDERS: ATTEND Family Medicine
DX: N20.0 Calculus of kidney (principal); R16.1 Splenomegaly, not elsewhere classified
CPT/HCPCS: 76770

== ENCOUNTER 2020-02-03 10:41 | Observation (INO) | payer MEDICARE ==
[2020-02-03] MEDS ORDERED: NITROGLYCERIN OINT 1 INCH/GM PACKET TOPICAL STA (11:12)
[2020-02-03] MEDS ORDERED: ACETAMINOPHEN TAB 500 MG TAB PO STA (11:12)
[2020-02-03] MEDS ORDERED: ASPIRIN 81 MG PO STA (11:12)
--- NOTE | 2020-02-03 11:31 | ED ---
General Adult HPI - General Chief complaint: Shortness of Breath Stated complaint: SOB, headache, weakness Time Seen by Provider: 02/03/20 10:45 Source: patient, RN notes reviewed, old records reviewed Mode of arrival: wheelchair Limitations: no limitations - History of Present Illness Initial comments: This is a 79-year-old male who presents emergency Department complaining that since Sunday he spent having episodes of near syncope. Patient states he was outside when it first occurred and was working. Patient states he also sprayed some chest pain when this occurred and some mild shortness of breath. Patient states he needed assistance to get in the house and rest. Patient states he has also happened in the middle night he wakes up and feels very lightheaded. Patient states currently he has no chest pain and no lightheadedness. Patient states he was told recently that he can take Aleve anymore for her headaches because since damaging his kidneys. Patient states that he does have very significant headache and it is been ongoing for at least a day now. Patient denies any recent fever chills per patient denies any cough. Patient denies any palpitations. Patient denies abdominal pain patient denies nausea vomiting diarrhea. - Related Data Home Medications Medication Instructions Recorded Confirmed amLODIPine [Norvasc] 10 mg PO HS 01/21/14 02/03/20 Metoprolol Succinate (ER) [Toprol 25 mg PO DAILY 03/08/16 02/03/20 Xl] Pantoprazole Sodium [Protonix] 40 mg PO DAILY 03/08/16 02/03/20 Cholecalciferol [Vitamin D3 (25 1,000 unit PO DAILY 12/12/18 02/03/20 Mcg = 1000 Iu)] Vit C/E/Zn/Coppr/Lutein/Zeaxan 1 cap PO BID 12/12/18 02/03/20 [Preservision Areds 2 Softgel] calcium polycarbophiL [Fibercon] 625 mg PO DAILY 12/12/18 02/03/20 LORazepam [Ativan] 1 mg PO TID PRN 02/03/20 02/03/20 Tamsulosin HCl [Flomax] 0.4 mg PO DAILY 02/03/20 02/03/20 Allergies Allergy/AdvReac Type Severity Reaction Status Date / Time No Known Allergies Allergy Verified 02/03/20 11:59 Review of Systems ROS Statement: Those systems with pertinent positive or pertinent negative responses have been documented in the HPI. ROS Other: All systems not noted in ROS Statement are negative. Past Medical History Past Medical History: Cancer, Chest Pain / Angina, COPD, GERD/Reflux, Hearing Disorder / Deafness, Hyperlipidemia, Hypertension, Osteoarthritis (OA), Prostate Disorder, Pulmonary Embolus (PE) Additional Past Medical History / Comment(s): Interstitial lung disease, pulmonary fibrosis, PE in 2012-pt cannot recall laterality, past home O2 use but none now, [place]-cannot tolerate Cpap, prostate cancer with recent radiation treatment, skin cancer with removals, nephrolithiasis, migraines, compression fracture low back, bilateral elbow fractures with surgery, PUD, jaundiced as a child, [place] bilaterally. History of Any Multi-Drug Resistant Organisms: None Reported Past Surgical History: Appendectomy, Cholecystectomy, Heart Catheterization, Hernia Repair, Joint Replacement, Orthopedic Surgery Additional Past Surgical History / Comment(s): Prostate biopsy, L hand partial amp of 2 fingers, L knee ACL repair, R knee arthroscopy, bilateral total elbow replacements per pt, bilateral cataract removals, L inguinal hernia repair, cardiac caths x 2, EGD, colonoscopy, skin cancer removals. Past Anesthesia/Blood Transfusion Reactions: No Reported Reaction Past Psychological History: Anxiety, Depression Smoking Status: Never smoker Past Alcohol Use History: None Reported Past Drug Use History: None Reported - Past Family History Brother(s) Family Medical History: Cancer Additional Family Medical History / Comment(s): ONE BROTHER HAD LUNG CA & ANOTHER HAD MELANOMA Mother Family Medical History: AICD/Pacemaker Father Family Medical History: No Reported History Sister(s) Family Medical History: No Reported History General Exam - General Exam Comments Initial Comments: GENERAL: Patient is well-developed and well-nourished. Patient is nontoxic and well- hydrated and is in mild distress. ENT: Neck is soft and supple. No significant lymphadenopathy is noted. Oropharynx is clear. Moist mucous membranes. Neck has full range of motion without eliciting any pain. EYES: The sclera were anicteric and conjunctiva were pink and moist. Extraocular movements were intact and pupils were equal round and reactive to light. Eyelids were unremarkable. PULMONARY: Unlabored respirations. Good breath sounds bilaterally. No audible rales rhonchi or wheezing was noted. CARDIOVASCULAR: There is a regular rate and rhythm without any murmurs gallops or rubs. ABDOMEN: Soft and nontender with normal bowel sounds. SKIN: Skin is clear with no lesions or rashes and otherwise unremarkable. NEUROLOGIC: Patient is alert and oriented x3. Cranial nerves II through XII are grossly intact. Motor and sensory are also intact. Normal speech, volume and content. Symmetrical smile. Patient's finger to nose normal cerebellar testing MUSCULOSKELETAL: Normal extremities with adequate strength and full range of motion. No lower extremity swelling or edema. No calf tenderness. LYMPHATICS: No significant lymphadenopathy is noted PSYCHIATRIC: Normal psychiatric evaluation. Limitations: no limitations Course Vital Signs 02/03/20 02/03/20 10:44 12:16 Temperature 97.0 F L Pulse Rate 102 H Pulse Rate [ 93 Right Sitting Asbestos Handler ] Pulse Rate [ 97 Right Standing Asbestos Handler ] Pulse Rate [ 87 Right Supine Asbestos Handler ] Respiratory 24 16 Rate Blood Pressure 176/92 Blood Pressure 169/96 [Right Arm Sitting] Blood Pressure 174/93 [Right Arm Standing] Blood Pressure 171/84 [Right Arm Supine] O2 Sat by Pulse 96 95 Oximetry Medical Decision Making - Medical Decision Making EKG shows normal sinus rhythm at 96 bpm [place] interval is 152 QRS is 82 QT interval is 340 QTC is 429. Patient's EKG shows no ST segment elevation or depression. Patient's chest x-ray shows no acute abnormality. Patient's troponin is mildly elevated so started the patient on heparin. Patient's blood pressure is high so I started the patient on hydralazine. Wrote admitting orders I consulted cardiology. I continued heparin and aspirin Nitropaste on the floor. - Lab Data Result diagrams: 02/03/20 11:15 Lab Results 02/03/20 02/03/20 02/03/20 Range/Units 11:15 11:15 11:15 PT 10.7 (9.0-12.0) sec INR 1.0 (<1.2) APTT 26.6 (22.0-30.0) sec Sodium 139 (137-145) mmol/L Potassium 4.8 (3.5-5.1) mmol/L Chloride 107 (98-107) mmol/L Carbon Dioxide 24 (22-30) mmol/L Anion Gap 8 mmol/L BUN 35 H (9-20) mg/dL Creatinine 2.00 H (0.66-1.25) mg/dL Est GFR (CKD-EPI)AfAm 36 (>60 ml/min/1.73 sqM) Est GFR (CKD-EPI)NonAf 31 (>60 ml/min/1.73 sqM) Glucose 147 H (74-99) mg/dL Calcium 9.2 (8.4-10.2) mg/dL Magnesium 1.9 (1.6-2.3) mg/dL Total Bilirubin 1.4 H (0.2-1.3) mg/dL AST 36 (17-59) U/L ALT 26 (4-49) U/L Alkaline Phosphatase 189 H (38-126) U/L Troponin I 0.103 H* (0.000-0.034) ng/mL Total Protein 7.0 (6.3-8.2) g/dL Albumin 4.4 (3.5-5.0) g/dL Critical Care Time Critical Care Time: Yes Total Critical Care Time: 35 Disposition Clinical Impression: Unstable angina Disposition: ADMITTED IP TO THIS HOSP Referrals: Barrington Goyal Jr, [Primary Care Provider] - 1-2 days Time of Disposition: 12:38
[2020-02-03 11:37] LABS: Albumin 4.4 g/dL (3.5-5.0); Calcium 9.2 mg/dL (8.4-10.2); Magnesium 1.9 mg/dL (1.6-2.3); Potassium 4.8 mmol/L (3.5-5.1); Total Bilirubin 1.4 mg/dL (0.2-1.3)
--- NOTE | 2020-02-03 11:37 | CT ---
EXAMINATION TYPE: CT brain wo con DATE OF EXAM: 02/03/2020 HISTORY: Headache CT DLP: 1099.4 mGycm. Automated Exposure Control for Dose Reduction was Utilized. TECHNIQUE: CT scan of the head is performed without contrast. COMPARISON: CT brain August 29, 2019. FINDINGS: There is no acute intracranial hemorrhage or midline shift identified. There is diffuse v entricular and sulcal prominence consistent with diffuse age-related cerebral atrophy. There is low- attenuation in the periventricular white matter consistent with chronic small vessel ischemic change. Stable hyperdense 7 to 8 mm focus axial image 26 probable colloid cyst level of foramen of [place]. T he globes are intact and the visualized sinuses are clear. Some vascular calcification distal inter nal carotid arteries bilaterally redemonstrated. IMPRESSION: No acute intracranial hemorrhage or midline shift. There is mild to moderate diffuse ag e-related cerebral atrophy and chronic small vessel ischemic change redemonstrated. Stable small col loid cyst. No significant change from prior.
--- NOTE | 2020-02-03 11:45 | XR ---
EXAMINATION TYPE: XR chest 2V DATE OF EXAM: 02/03/2020 COMPARISON: Chest x-ray September 30, 2009. CT chest December 25, 2016 HISTORY: Shortness of breath and chest pain. TECHNIQUE: Frontal and lateral views of the chest are obtained. FINDINGS: Background Chronic emphysematous change greatest in the right upper lobe is redemonstrated . There is focal right basilar scarring. There is no no suspicious focal air space opacity, pleural e ffusion, or pneumothorax seen. The cardiac silhouette size is stable and within normal limits with a therosclerotic thoracic aorta redemonstrated. The osseous structures are intact. Cholecystectomy cl ips noted on lateral view. IMPRESSION: Chronic changes without acute pulmonary process.
[2020-02-03 11:52] LABS: Partial Thromboplastin Time 26.6 sec (22.0-30.0); Prothrombin Time 10.7 sec (9.0-12.0)
[2020-02-03 12:12] LABS: Anisocytosis Slight; HCT 39.2 % (39.0-53.0); HGB 12.8 gm/dL (13.0-17.5); MCH 26.5 pg (25.0-35.0); MCHC 32.6 g/dL (31.0-37.0); MCV 81.5 fL (80.0-100.0); Mean Platelet Volume 11.1; Microcytosis Slight; Platelet Count 257 k/uL (150-450); Poikilocytosis Slight; RBC 4.81 m/uL (4.30-5.90); RDW 19.2 % (11.5-15.5)
[2020-02-03] MEDS ORDERED: HEPARIN SODIUM,PORCINE 5,000 UNIT/ML 1 ML VIAL IV ONE (12:32)
[2020-02-03] MEDS ORDERED: hydrALAZINE HCL 20 MG/ML 1 ML VIAL IVP STA (12:32)
[2020-02-03] MEDS ORDERED: NITROGLYCERIN SL TABS 0.4 MG TAB SUBLINGUAL PRN (12:38)
[2020-02-03] MEDS ORDERED: HEPARIN SOD,PORK IN 0.45% NACL 25,000 UNIT in 0.45% NACL 1 250ML.BAG IV SCH (12:45)
[2020-02-03 12:58] LABS: Band Neutrophils % 3 %; Basophils # (M) 0.23 k/uL (0-0.2); Metamyelocytes # (M) 0.11 k/uL (0); Metamyelocytes % 1 %; Monocytes # (M) 0.68 k/uL (0-1.0); Myelocytes # (M) 0.11 k/uL (0); Myelocytes % 1 %; Neutrophils % (M) 75 %; Nucleated Red Blood Cells 2 /100 WBC (0-0); Total Cells Counted 200; WBC 11.4 k/uL (3.8-10.6)
[2020-02-03 12:59] LABS: Large Platelets Present
[2020-02-03] MEDS ORDERED: SODIUM CHLORIDE 0.9% 1,000 ML in EMPTY BAG 1 BAG IV ONE (14:19)
[2020-02-03] MEDS ORDERED: ALPRAZolam 0.25 MG TAB PO PRN (14:19)
--- NOTE | 2020-02-03 14:38 | P.CRDCN ---
History of Present Illness History of present illness: HISTORY OF PRESENTING ILLNESS This is a pleasant 79-year-old male past medical history significant for nonobstructive coronary artery disease with a 20% ostial narrowing of the left main noted on catheterization 2008, hypertension, COPD, dyslipidemia intolerant to statins, chronic kidney disease follows with nephrology and pulmonary fibrosis. He follows in the office with Dr. Apple. We have been asked to see in consultation for unstable angina. He states over the previous week he has had 2 episodes of exertional dyspnea and feeling lightheaded. Most recently on Sunday he was doing yard work using his Rototiller and each time he finished a row he had to stop to catch his breath. When he stopped his breathing would improve and we started working again he would again become short of breath. He also describes feeling a tightness in the midsternal region that radiated around to the flank region bilaterally. He also felt lightheaded and fatigued. He said he slept most of the day yesterday because he had no energy to get up and do anything. Orthostatics are negative. DIAGNOSTICS EKG reveals sinus mechanism with nonspecific ST abnormalities. Chest xray negative for an acute cardiopulmonary process. CT of the brain reveals no acute intracranial hemorrhage or midline shift, mild to moderate diffuse age-related cerebral atrophy and chronic small vessel ische heaven. Laboratory reviewed, WBC 11.4, hemoglobin 11.8, platelets 257, sodium 139, potassium 4.8, creatinine 2.0, magnesium 1.9, total bilirubin 1.4, alkaline phosphate 189, troponin 0.103 and anti-proBNP 1570. Current cardiac medications include Toprol 25 mg daily and amlodipine 10 mg at bedtime. Most recent echocardiogram obtained in the office August 2018 revealed preserved LV systolic function with ejection fraction 50-55%, moderate LVH, normal diastolic function and mild to moderate tricuspid regurgitation with an RVSP of 58. Most recent stress test performed in the office February 2018 was a Lexiscan stress test that revealed a fixed perfusion defect in the inferior wall suggestive of soft tissue artifact, no evidence of reversibility with ejection fraction of 50%. REVIEW OF SYSTEMS At the time of my exam: CONSTITUTIONAL: Denies fever or chills. Complains of generalized weakness and f atigue. CARDIOVASCULAR: Denies chest pain, shortness of breath, orthopnea, PND or palpitations. RESPIRATORY: Denies cough. GASTROINTESTINAL: Denies abdominal pain, diarrhea, constipation, nausea or v omiting. MUSCULOSKELETAL: Denies myalgias. NEUROLOGIC: Denies numbness, tingling or weakness. ENDOCRINE: Denies fatigue, weight change, polydipsia or polyurina. GENITOURINARY: Denies burning, hematuria or urgency with micturation. HEMATOLOGIC: Denies history of anemia or bleeding. PHYSICAL EXAMINATION Blood pressure 145/80 heart rate 99 afebrile and maintaining oxygen saturation on room air. CONSTITUTIONAL: No apparent distress. HEENT: Head is normocephalic. Pupils are equal, round. Sclerae anicteric. Mucous membranes of the mouth are moist. No JVD. No carotid bruit. CHEST EXAMINATION: Soft rales bilaterally, no rhonchi or wheezes. No chest wall tenderness is noted on palpation or with deep breathing. HEART EXAMINATION: Regular rate and rhythm. S1, S2 heard. No murmurs, gallops or rub. Distant heart sounds. ABDOMEN: Soft, nontender. Positive bowel sounds. EXTREMITIES: 2+ peripheral pulses, no lower extremity edema and no calf tenderness. NEUROLOGIC EXAMINATION: Patient is awake, alert and oriented x3. ASSESSMENT Unstable angina Non-ST elevated myocardial infarction Acute on chronic kidney disease Hypertension Dyslipidemia, intolerant to statins COPD History of pulmonary fibrosis Nonobstructive coronary artery disease noted in catheterization in 2008 PLAN Obtain 2D echocardiogram and doppler study to assess cardiac structure and function. Continue to trend troponins. Continue heparin infusion Hydrate the patient with 0.9% NS. Close telemetry monitoring. Check TSH and d-dimer. Hold metoprolol and assess for dennis arrhythmia. Continue amlodipine as previously ordered. Tentatively NPO after midnight for possible cardiac catheterization tomorrow depending on troponins and renal function. Further recommendations to follow based on clinical course. Thank you kindly for this consultation. Nurse Practitioner note has been reviewed, I agree with a documented findings and plan of care. Patient was seen and examined. Past Medical History Past Medical History: Cancer, Chest Pain / Angina, COPD, GERD/Reflux, Hearing Disorder / Deafness, Hyperlipidemia, Hypertension, Osteoarthritis (OA), Prostate Disorder, Pulmonary Embolus (PE) Additional Past Medical History / Comment(s): Interstitial lung disease, pulmonary fibrosis, PE in 2012-pt cannot recall laterality, past home O2 use but none now, [place]IA[place]-cannot tolerate Cpap, prostate cancer with recent radiation treatment, skin cancer with removals, nephrolithiasis, migraines, compression fracture low back, bilateral elbow fractures with surgery, PUD, jaundiced as a child, [place] bilaterally. History of Any Multi-Drug Resistant Organisms: None Reported Past Surgical History: Appendectomy, Cholecystectomy, Heart Catheterization, Hernia Repair, Joint Replacement, Orthopedic Surgery Additional Past Surgical History / Comment(s): Prostate biopsy, L hand partial amp of 2 fingers, L knee ACL repair, R knee arthroscopy, bilateral total elbow replacements per pt, bilateral cataract removals, L inguinal hernia repair, cardiac caths x 2, EGD, colonoscopy, skin cancer removals. Past Anesthesia/Blood Transfusion Reactions: No Reported Reaction Past Psychological History: Anxiety, Depression Additional Psychological History / Comment(s): Pt resides with his spouse. He is independent. Smoking Status: Former smoker Past Alcohol Use History: None Reported Additional Past Alcohol Use History / Comment(s): Pt started smoking in 1960 and quit in 2004 Past Drug Use History: None Reported - Past Family History Brother(s) Family Medical History: Cancer Additional Family Medical History / Comment(s): ONE BROTHER HAD LUNG CA & ANOTHER HAD MELANOMA Mother Family Medical History: AICD/Pacemaker Father Family Medical History: No Reported History Sister(s) Family Medical History: No Reported History Medications and Allergies Home Medications Medication Instructions Recorded Confirmed Type amLODIPine [Norvasc] 10 mg PO HS 01/21/14 02/03/20 History Metoprolol Succinate (ER) [Toprol 25 mg PO DAILY 03/08/16 02/03/20 History Xl] Pantoprazole Sodium [Protonix] 40 mg PO DAILY 03/08/16 02/03/20 History Cholecalciferol [Vitamin D3 (25 1,000 unit PO DAILY 12/12/18 02/03/20 History Mcg = 1000 Iu)] Vit C/E/Zn/Coppr/Lutein/Zeaxan 1 cap PO BID 12/12/18 02/03/20 History [Preservision Areds 2 Softgel] calcium polycarbophiL [Fibercon] 625 mg PO DAILY 12/12/18 02/03/20 History LORazepam [Ativan] 1 mg PO TID PRN 02/03/20 02/03/20 History Tamsulosin HCl [Flomax] 0.4 mg PO DAILY 02/03/20 02/03/20 History Allergies Allergy/AdvReac Type Severity Reaction Status Date / Time No Known Allergies Allergy Verified 02/03/20 11:59 Physical Exam Vitals: Vital Signs Temp Pulse Pulse Pulse Pulse Resp BP 02/03/20 13:35 97.8 F 99 16 02/03/20 13:14 97.0 F L 80 18 158/89 02/03/20 13:00 80 18 158/89 02/03/20 12:16 93 97 87 16 02/03/20 12:00 82 18 02/03/20 10:44 97.0 F L 102 H 24 176/92 BP BP BP Pulse Ox 02/03/20 13:35 145/80 97 02/03/20 13:14 95 02/03/20 13:00 95 02/03/20 12:16 169/96 174/93 171/84 95 02/03/20 12:00 96 02/03/20 10:44 96 Intake and Output 02/02/20 02/03/20 02/03/20 22:59 06:59 14:59 Other: Weight 90.718 kg Results 02/03/20 11:15 02/03/20 11:15 Cardiac Enzymes 02/03/20 02/03/20 Range/Units 11:15 11:15 AST 36 (17-59) U/L Troponin I 0.103 H* (0.000-0.034) ng/mL Coagulation 02/03/20 Range/Units 11:15 PT 10.7 (9.0-12.0) sec APTT 26.6 (22.0-30.0) sec CBC 02/03/20 Range/Units 11:15 WBC 11.4 H (3.8-10.6) k/uL RBC 4.81 (4.30-5.90) m/uL Hgb 12.8 L (13.0-17.5) gm/dL Hct 39.2 (39.0-53.0) % Plt Count 257 (150-450) k/uL Comprehensive Metabolic Panel 02/03/20 Range/Units 11:15 Sodium 139 (137-145) mmol/L Potassium 4.8 (3.5-5.1) mmol/L Chloride 107 (98-107) mmol/L Carbon Dioxide 24 (22-30) mmol/L BUN 35 H (9-20) mg/dL Creatinine 2.00 H (0.66-1.25) mg/dL Glucose 147 H (74-99) mg/dL Calcium 9.2 (8.4-10.2) mg/dL AST 36 (17-59) U/L ALT 26 (4-49) U/L Alkaline Phosphatase 189 H (38-126) U/L Total Protein 7.0 (6.3-8.2) g/dL Albumin 4.4 (3.5-5.0) g/dL Current Medications Generic Name Dose Route Start Last Admin Trade Name Freq PRN Reason Stop Dose Admin Acetaminophen 650 mg 02/03/20 13:58 Acetaminophen Tab 325 Mg Tab PO Q6HR PRN Fever and/ or Pain Alprazolam 0.25 mg 02/03/20 14:19 Alprazolam 0.25 Mg Tab PO Q6HR PRN Mild Anxiety Alprazolam 0.5 mg 02/03/20 14:19 Alprazolam 0.5 Mg Tab PO Q6HR PRN Moderate Anxiety Amlodipine Besylate 10 mg 02/03/20 21:00 Amlodipine 10 Mg Tab PO HS [facility] Aspirin 325 mg 02/04/20 09:00 Aspirin 325 Mg Tab PO DAILY [facility] Heparin Sodium/Sodium Chloride 250 mls @ 10.006 mls/hr 02/03/20 12:45 02/03/20 13:03 25,000 unit/ Sodium Chloride IV 11.03 units/kg/hr .Q24H [facility]UEL 10.006 mls/hr Administration Protocol 11.03 UNITS/KG/HR Sodium Chloride 1,000 ml/ IV 1,000 mls @ 90.718 mls/hr 02/03/20 14:19 Solution IV 02/04/20 01:20 .Q11H2M ONE 1 ML/KG/HR Nitroglycerin 0.4 mg 02/03/20 12:38 Nitroglycerin Sl Tabs 0.4 Mg Tab SUBLINGUAL Q5M PRN Chest Pain Nitroglycerin 1 inch 02/03/20 18:00 Nitroglycerin Oint 1 Inch/Gm Packet TOPICAL Q6HR [facility] Pravastatin Sodium 80 mg 02/04/20 09:00 Pravastatin Sodium 80 Mg Tab PO 02/04/20 09:01 ONCE ONE Intake and Output 02/02/20 02/03/20 02/03/20 22:59 06:59 14:59 Other: Weight 90.718 kg Patient Weight 02/04/20 06:59 Weight 90.718 kg 02/03/20 11:15 02/03/20 11:15
[2020-02-03] MEDS ORDERED: LORazepam 1 MG TAB PO PRN (16:13)
--- NOTE | 2020-02-03 16:21 | P.HPIM ---
History of Present Illness H&P Date: 02/03/20 Chief Complaint: Chest pain, near syncope This is a pleasant 79-year-old gentleman with history of chest pain, angina, CAD, family history of sick sinus syndrome requiring PPMs, COPD, gastroesophageal reflux disease, hypertension, renal insufficiency, nephrolithiasis, prostate cancer, obstructive sleep apnea unable to tolerate CPAP machine, anxiety, depression, former smoker and multiple other medical issues presented to the ER with complaints of radiating midsternal chest pressure/tightness to flank upon exertion( using Rototiller) with shortness of breath, lightheadedness and fatigue twice since Sunday.Reports symptoms eased when he would stop for rest. Fatigue persisted and he slept most of yesterday. Over the last few years patient has been having near syncopal episodes with nondiagnostic event monitors,etc reported per PCP. Negative for orthostatic hypotension.Troponin 0.103, 0.103. EKG reported normal sinus rhythm, nonspecific ST abnormalities. Electrolyte within normal limits .Total bili 1.4, alk phos 189, BNP 1570. BUN 35, creatinine 2( baseline 1.5-1.7).Afebrile, mild leukocytosis. Chest x-ray reported nonacute. Brain CT reported no acute in tracranial hemorrhage or midline shift, mild to moderate diffuse age-related cerebral atrophy, chronic small vessel ischemic change or he demonstrated, stable small choroid cyst with no significant change from prior. Review of Systems ROS Statement: Those systems with pertinent positive or pertinent negative responses have been documented in the HPI. ROS Other: All systems not noted in ROS Statement are negative. Past Medical History Past Medical History: Cancer, Chest Pain / Angina, COPD, GERD/Reflux, Hearing Disorder / Deafness, Hyperlipidemia, Hypertension, Osteoarthritis (OA), Prostate Disorder, Pulmonary Embolus (PE) Additional Past Medical History / Comment(s): Interstitial lung disease, pulmonary fibrosis, PE in 2012-pt cannot recall laterality, past home O2 use but none now, [place]-cannot tolerate Cpap, prostate cancer with recent radiation treatment, skin cancer with removals, nephrolithiasis, migraines, compression fracture low back, bilateral elbow fractures with surgery, PUD, jaundiced as a child, [place] bilaterally. History of Any Multi-Drug Resistant Organisms: None Reported Past Surgical History: Appendectomy, Cholecystectomy, Heart Catheterization, Hernia Repair, Joint Replacement, Orthopedic Surgery Additional Past Surgical History / Comment(s): Prostate biopsy, L hand partial amp of 2 fingers, L knee ACL repair, R knee arthroscopy, bilateral total elbow replacements per pt, bilateral cataract removals, L inguinal hernia repair, cardiac caths x 2, EGD, colonoscopy, skin cancer removals. Past Anesthesia/Blood Transfusion Reactions: No Reported Reaction Past Psychological History: Anxiety, Depression Smoking Status: Never smoker Past Alcohol Use History: None Reported Past Drug Use History: None Reported - Past Family History Brother(s) Family Medical History: Cancer Additional Family Medical History / Comment(s): ONE BROTHER HAD LUNG CA & ANOTHER HAD MELANOMA Mother Family Medical History: AICD/Pacemaker Father Family Medical History: No Reported History Sister(s) Family Medical History: No Reported History Medications and Allergies Home Medications Medication Instructions Recorded Confirmed Type amLODIPine [Norvasc] 10 mg PO HS 01/21/14 02/03/20 History Metoprolol Succinate (ER) [Toprol 25 mg PO DAILY 03/08/16 02/03/20 History Xl] Pantoprazole Sodium [Protonix] 40 mg PO DAILY 03/08/16 02/03/20 History Cholecalciferol [Vitamin D3 (25 1,000 unit PO DAILY 12/12/18 02/03/20 History Mcg = 1000 Iu)] Vit C/E/Zn/Coppr/Lutein/Zeaxan 1 cap PO BID 12/12/18 02/03/20 History [Preservision Areds 2 Softgel] calcium polycarbophiL [Fibercon] 625 mg PO DAILY 12/12/18 02/03/20 History LORazepam [Ativan] 1 mg PO TID PRN 02/03/20 02/03/20 History Tamsulosin HCl [Flomax] 0.4 mg PO DAILY 02/03/20 02/03/20 History Allergies Allergy/AdvReac Type Severity Reaction Status Date / Time No Known Allergies Allergy Verified 02/03/20 11:59 Physical Exam Vitals: Vital Signs Temp Pulse Pulse Pulse Pulse Resp BP 02/03/20 13:14 97.0 F L 80 18 158/89 02/03/20 13:00 80 18 158/89 02/03/20 12:16 93 97 87 16 02/03/20 12:00 82 18 02/03/20 10:44 97.0 F L 102 H 24 176/92 BP BP BP Pulse Ox 02/03/20 13:14 95 02/03/20 13:00 95 02/03/20 12:16 169/96 174/93 171/84 95 02/03/20 12:00 96 02/03/20 10:44 96 Intake and Output 02/02/20 02/03/20 02/03/20 22:59 06:59 14:59 Other: Weight 90.718 kg PHYSICAL EXAM: VITAL SIGNS: As above GENERAL: Sitting up at side of bed, no acute distress, mild anxiety HEENT: Conjunctivae normal. eyes normal. NECK: No JVD. No thyroid enlargement. No LNs CARDIOVASCULAR: S1, S2 regular.. No murmur RESPIRATION: Breath sounds diminished in the bases. No rhonchi or crackles. No bronchial breathing. ABDOMEN: Soft, nontender . No guarding. no masses palpable. No ascites, No hepatosplenomegaly.Bowel sounds heard. LEGS: No edema. no swelling PSYCHIATRY: Alert and oriented X3, mood and affect normal. NERVOUS SYSTEM: Cranial N 2-12 grossly normal. Moves all 4 limbs. Diffuse weakness No focal deficits. Strength and sensation grossly intact.. Skin: Warm and dry, no rash Lymphatic system. No LN neck axilla or groin. Results CBC & Chem 7: 02/03/20 11:15 02/03/20 11:15 Labs: Abnormal Lab Results - Last 24 Hours (Table) 02/03/20 02/03/20 02/03/20 Range/Units 11:15 11:15 11:15 WBC 11.4 H (3.8-10.6) k/uL Hgb 12.8 L (13.0-17.5) gm/dL RDW 19.2 H (11.5-15.5) % Neutrophils # (Manual) 8.80 H (1.3-7.7) k/uL Lymphocytes # (Manual) 0.80 L (1.0-4.8) k/uL Eosinophils # (Manual) 0.80 H (0-0.7) k/uL Basophils # (Manual) 0.23 H (0-0.2) k/uL Metamyelocytes # (Man) 0.11 H (0) k/uL Myelocytes # (Manual) 0.11 H (0) k/uL Nucleated RBCs 2 H (0-0) /100 WBC BUN 35 H (9-20) mg/dL Creatinine 2.00 H (0.66-1.25) mg/dL Glucose 147 H (74-99) mg/dL Total Bilirubin 1.4 H (0.2-1.3) mg/dL Alkaline Phosphatase 189 H (38-126) U/L Troponin I 0.103 H* (0.000-0.034) ng/mL Assessment and Plan Assessment: Chest pain, elevated troponins, possible sub-acute non-STEMI Unstable angina Near syncope, multifactorial, secondary to the above Possible bradycardia, sick sinus syndrome in a patient with multiple prior episodes of near syncope with etiology unclear. Family history of sick sinus syndrome in multiple family members requiring PPMs Mild leukocytosis, reactive in a patient without signs or symptoms of infection. Acute on chronic renal insufficiency CAD Hypertension Hyperlipidemia, intolerant to statins Pulmonary fibrosis, history of COPD History of nicotine dependence Plan: Continue on current medication regime ,monitoring and symptomatic treatment. Acute coronary syndrome pathway/heparin drip. Echo ordered. Cardiology consulted. IV fluid hydration with Nephrology consulted; potential cardiac catheterization. Home meds reviewed and resumed accordingly.Beta jessie placed on hold-monitor for bradyarrhythmias. The impression and plan of care has been dictated as directed. : I performed a history and examination of this patient, discussed the same with the dictator. I agree with the dictator's note ,documented as a scribe. Any additional findings or plans will be noted.
[2020-02-03] MEDS: TAMSULOSIN 0.4 MG CAP.ER.24H PO SCH (17:04)
[2020-02-03] MEDS: PANTOPRAZOLE 40 MG TABLET PO SCH (17:05)
[2020-02-03] MEDS: NITROGLYCERIN OINT 1 INCH/GM PACKET TOPICAL SCH (17:05)
[2020-02-03] MEDS: ACETAMINOPHEN TAB 325 MG TAB PO PRN (20:04)
[2020-02-03] MEDS: hydrALAZINE HCL 25 MG TAB PO SCH (21:11)
[2020-02-03] MEDS: amLODIPine 10 MG TAB PO SCH (21:11)
[2020-02-04] MEDS: NITROGLYCERIN OINT 1 INCH/GM PACKET TOPICAL SCH ×2 (01:43→06:01)
[2020-02-04] MEDS: ACETAMINOPHEN TAB 325 MG TAB PO PRN ×3 (06:04→16:48)
[2020-02-04] MEDS: ALPRAZolam 0.5 MG TAB PO PRN ×3 (06:04→21:08)
[2020-02-04] MEDS: PANTOPRAZOLE 40 MG TABLET PO SCH (06:04)
[2020-02-04 07:38] LABS: Anisocytosis Slight; Basophils # (A) 0.2 k/uL (0-0.2); Basophils % (A) 3 %; Eosinophils # (A) 0.3 k/uL (0-0.7); Eosinophils % (A) 3 %; HCT 35.1 % (39.0-53.0); HGB 11.5 gm/dL (13.0-17.5); Lymphocytes # (A) 1.2 k/uL (1.0-4.8); Lymphocytes % (A) 14 %; MCH 27.1 pg (25.0-35.0); MCHC 32.8 g/dL (31.0-37.0); MCV 82.7 fL (80.0-100.0); Mean Platelet Volume 10.6; Microcytosis Slight; Monocytes # (A) 0.4 k/uL (0-1.0); Monocytes % (A) 4 %; Neutrophils # (A) 6.6 k/uL (1.3-7.7); Neutrophils % (A) 74 %; Platelet Count 209 k/uL (150-450); Poikilocytosis Slight; RBC 4.25 m/uL (4.30-5.90); RDW 19.2 % (11.5-15.5); WBC 8.9 k/uL (3.8-10.6)
[2020-02-04] MEDS: hydrALAZINE HCL 25 MG TAB PO SCH ×3 (07:57→21:08)
[2020-02-04 08:10] LABS: Calcium 8.6 mg/dL (8.4-10.2); Magnesium 1.8 mg/dL (1.6-2.3)
[2020-02-04] MEDS ORDERED: ASPIRIN 325 MG TAB PO SCH (09:00)
[2020-02-04] MEDS ORDERED: PRAVASTATIN SODIUM 80 MG TAB PO ONE (09:00)
--- NOTE | 2020-02-04 09:29 | P.NPCON ---
History of Present Illness - Reason for Consult acute renal failure, chronic renal failure - History of Present Illness Reason for consultation: Acute kidney injury on chronic kidney disease History of present illness: Patient is a 79-year-old male seen in initial consultation for acute kidney injury on chronic kidney disease. Patient has chronic kidney disease stage III with baseline creatinine in the range of 1.5-2. Patient presented to the hospital due to near syncopal episode. Patient states it first occurred when he was working outside. He also complained of chest pain at the time of admission. Troponins were noted to be elevated. He is scheduled for cardiac catheterization today. He is also maintained on heparin drip. He was started on IV fluids last night. Currently normal saline running at 70 mL an hour. No active chest pain. No shortness of breath. Good urine output. No hematuria or dysuria. Denies regular use of nonsteroidals. No history of diabetes. He does have long-standing history of hypertension. Blood pressure currently controlled. No vomiting or diarrhea. Denies losing consciousness. Vital signs are stable. General: The patient appeared well nourished and normally developed. HEENT: Head exam is unremarkable. Neck is without jugular venous distension. LUNGS: Lungs are clear to auscultation and percussion. Breath sounds decreased. HEART: Rate and Rhythm are regular. ABDOMEN: Soft, nontender. EXTREMITITES: No clubbing, cyanosis, or edema. Past Medical History Past Medical History: Cancer, Chest Pain / Angina, COPD, GERD/Reflux, Hearing Disorder / Deafness, Hyperlipidemia, Hypertension, Osteoarthritis (OA), Prostate Disorder, Pulmonary Embolus (PE) Additional Past Medical History / Comment(s): Interstitial lung disease, pulmonary fibrosis, PE in 2012-pt cannot recall laterality, past home O2 use but none now, RIA[place]-cannot tolerate Cpap, prostate cancer with recent radiation t reatment, skin cancer with removals, nephrolithiasis, migraines, compression fracture low back, bilateral elbow fractures with surgery, PUD, jaundiced as a child, [place] bilaterally. History of Any Multi-Drug Resistant Organisms: None Reported Past Surgical History: Appendectomy, Cholecystectomy, Heart Catheterization, Hernia Repair, Joint Replacement, Orthopedic Surgery Additional Past Surgical History / Comment(s): Prostate biopsy, L hand partial amp of 2 fingers, L knee ACL repair, R knee arthroscopy, bilateral total elbow replacements per pt, bilateral cataract removals, L inguinal hernia repair, cardiac caths x 2, EGD, colonoscopy, skin cancer removals. Past Anesthesia/Blood Transfusion Reactions: No Reported Reaction Past Psychological History: Anxiety, Depression Smoking Status: Never smoker Past Alcohol Use History: None Reported Past Drug Use History: None Reported - Past Family History Brother(s) Family Medical History: Cancer Additional Family Medical History / Comment(s): ONE BROTHER HAD LUNG CA & ANOTHER HAD MELANOMA Mother Family Medical History: AICD/Pacemaker Father Family Medical History: No Reported History Sister(s) Family Medical History: No Reported History Medications and Allergies Home Medications Medication Instructions Recorded Confirmed Type amLODIPine [Norvasc] 10 mg PO HS 01/21/14 02/03/20 History Metoprolol Succinate (ER) [Toprol 25 mg PO DAILY 03/08/16 02/03/20 History Xl] Pantoprazole Sodium [Protonix] 40 mg PO DAILY 03/08/16 02/03/20 History Cholecalciferol [Vitamin D3 (25 1,000 unit PO DAILY 12/12/18 02/03/20 History Mcg = 1000 Iu)] Vit C/E/Zn/Coppr/Lutein/Zeaxan 1 cap PO BID 12/12/18 02/03/20 History [Preservision Areds 2 Softgel] calcium polycarbophiL [Fibercon] 625 mg PO DAILY 12/12/18 02/03/20 History LORazepam [Ativan] 1 mg PO TID PRN 02/03/20 02/03/20 History Tamsulosin HCl [Flomax] 0.4 mg PO DAILY 02/03/20 02/03/20 History Allergies Allergy/AdvReac Type Severity Reaction Status Date / Time No Known Allergies Allergy Verified 02/03/20 11:59 Physical Exam Vitals: Vital Signs Temp Pulse Pulse Pulse Pulse Resp BP 02/04/20 07:48 97.9 F 89 16 02/04/20 03:21 97.8 F 89 18 02/04/20 00:00 98.2 F 91 18 02/03/20 21:17 97.8 F 81 19 02/03/20 19:28 19 02/03/20 19:24 98.3 F 96 19 02/03/20 17:41 98.3 F 98 18 02/03/20 16:00 97.8 F 76 16 02/03/20 13:35 97.8 F 99 16 02/03/20 13:14 97.0 F L 80 18 158/89 02/03/20 13:00 80 18 158/89 02/03/20 12:16 93 97 87 16 02/03/20 12:00 82 18 02/03/20 10:44 97.0 F L 102 H 24 176/92 BP BP BP Pulse Ox 02/04/20 07:48 139/78 93 L 02/04/20 03:21 123/59 93 L 02/04/20 00:00 147/70 93 L 02/03/20 21:17 165/78 02/03/20 19:28 02/03/20 19:24 148/81 02/03/20 17:41 149/81 02/03/20 16:00 118/58 95 02/03/20 13:35 145/80 97 02/03/20 13:14 95 02/03/20 13:00 95 02/03/20 12:16 169/96 174/93 171/84 95 02/03/20 12:00 96 02/03/20 10:44 96 Intake and Output 02/03/20 02/04/20 02/04/20 22:59 06:59 14:59 Intake Total 480 0 Output Total 400 200 Balance 80 -200 0 Intake: Oral 480 0 Output: Urine 400 200 Other: # Voids 0 0 # Bowel Movements 0 Weight 91 kg Results - Lab Results Most recent lab results Calcium 8.6 mg/dL (8.4-10.2) 02/04/20 06:57 Magnesium 1.8 mg/dL (1.6-2.3) 02/04/20 06:57 02/04/20 06:57 02/04/20 06:57 Assessment and Plan Plan: Assessment: 1. Mild acute kidney injury mostly prerenal secondary to hemodynamic i nstability. 2. Chronic kidney disease stage III with baseline creatinine in the range of 1.5-2. GFR near baseline. Etiology is nephrosclerosis. 3. Non-ST elevated myocardial infarction maintained on heparin drip. Scheduled for cardiac catheterization today. 4. Hypertension with chronic kidney disease. Controlled. Plan: Maintain normal saline at 70 mL an hour. Hep-Lock IV fluids at 10 PM today. Avoid nephrotoxins. Risk of developing worsening renal failure post-IV contrast exposure, including the potential need for renal replacement therapy, was discussed with the patient. He understands. Repeat electrolytes in the morning. Check urinalysis. Check renal ultrasound. Thank you for the consultation. I will continue to follow the patient with you during his hospital stay.
--- NOTE | 2020-02-04 10:41 | P.PN ---
Subjective HISTORY OF PRESENTING ILLNESS This is a pleasant 79-year-old male past medical history significant for nonobstructive coronary artery disease with a 20% ostial narrowing of the left main noted on catheterization 2008, hypertension, COPD, dyslipidemia intolerant to statins, chronic kidney disease follows with nephrology and pulmonary fibrosis. He follows in the office with Dr. Apple. He is seen and examined resting comfortably laying flat in bed in no acute distress. He states he was up all night nervous. He has had no further symptoms of dyspnea however has not been done much activity. Blood pressure 139/78 heart rate 89 afebrile maintaining oxygen saturation on room air. Laboratory data reviewed, WBC 8.9, hemoglobin 11.5, platelets 209, sodium 141, potassium 4.0, creatinine 1.95, LDL 91, TSH 2.73, second troponin 0.103 and third was 0.0 88. He also has been seen by nephrology and they are recommending pre-and post Hydration. He has been initiated on 0.9% normal saline 1 mg/kg per hour since yesterday afternoon. PHYSICAL EXAMINATION CONSTITUTIONAL: No apparent distress. HEENT: Head is normocephalic. Pupils are equal, round. Sclerae anicteric. Mucous membranes of the mouth are moist. No JVD. No carotid bruit. CHEST EXAMINATION: Soft rales bilaterally, no rhonchi or wheezes. No chest wall tenderness is noted on palpation or with deep breathing. HEART EXAMINATION: Regular rate and rhythm. S1, S2 heard. No murmurs, gallops or rub. Distant heart sounds. EXTREMITIES: 2+ peripheral pulses, no lower extremity edema and no calf tenderness. ASSESSMENT Unstable angina Non-ST elevated myocardial infarction Acute on chronic kidney disease Hypertension Dyslipidemia, intolerant to statins COPD History of pulmonary fibrosis Nonobstructive coronary artery disease noted in catheterization in 2008 PLAN Patient will have cardiac catheterization performed today with post catheterization hydration. Further recommendations to follow based upon clinical course. Nurse Practitioner note has been reviewed, I agree with a documented findings and plan of care. Patient was seen and examined. Objective - Vital Signs Vital signs: Vital Signs Temp 97.9 F 02/04/20 07:48 Pulse 89 02/04/20 07:48 Resp 16 02/04/20 08:00 BP 139/78 02/04/20 07:48 Pulse Ox 93 L 02/04/20 07:48 Intake & Output 02/03/20 02/04/20 02/04/20 18:59 06:59 18:59 Intake Total 240 240 0 Output Total 200 400 Balance 40 -160 0 Weight 90.718 kg 91 kg Intake: Oral 240 240 0 Output: Urine 200 400 Other: # Voids 0 0 # Bowel Movements 0 - Labs CBC & Chem 7: 02/04/20 06:57 02/04/20 06:57 Labs: Abnormal Lab Results - Last 24 Hours (Table) 02/03/20 02/03/20 02/03/20 Range/Units 11:15 11:15 11:15 WBC 11.4 H (3.8-10.6) k/uL RBC (4.30-5.90) m/uL Hgb 12.8 L (13.0-17.5) gm/dL Hct (39.0-53.0) % RDW 19.2 H (11.5-15.5) % Neutrophils # (Manual) 8.80 H (1.3-7.7) k/uL Lymphocytes # (Manual) 0.80 L (1.0-4.8) k/uL Eosinophils # (Manual) 0.80 H (0-0.7) k/uL Basophils # (Manual) 0.23 H (0-0.2) k/uL Metamyelocytes # (Man) 0.11 H (0) k/uL Myelocytes # (Manual) 0.11 H (0) k/uL Nucleated RBCs 2 H (0-0) /100 WBC APTT (22.0-30.0) sec D-Dimer (<0.60) mg/L FEU Chloride (98-107) mmol/L BUN 35 H (9-20) mg/dL Creatinine 2.00 H (0.66-1.25) mg/dL Glucose 147 H (74-99) mg/dL Total Bilirubin 1.4 H (0.2-1.3) mg/dL Alkaline Phosphatase 189 H (38-126) U/L Troponin I 0.103 H* (0.000-0.034) ng/mL Triglycerides (<150) mg/dL HDL Cholesterol (40-60) mg/dL 02/03/20 02/03/20 02/03/20 Range/Units 14:21 14:35 17:49 WBC (3.8-10.6) k/uL RBC (4.30-5.90) m/uL Hgb (13.0-17.5) gm/dL Hct (39.0-53.0) % RDW (11.5-15.5) % Neutrophils # (Manual) (1.3-7.7) k/uL Lymphocytes # (Manual) (1.0-4.8) k/uL Eosinophils # (Manual) (0-0.7) k/uL Basophils # (Manual) (0-0.2) k/uL Metamyelocytes # (Man) (0) k/uL Myelocytes # (Manual) (0) k/uL Nucleated RBCs (0-0) /100 WBC APTT (22.0-30.0) sec D-Dimer 0.93 H (<0.60) mg/L FEU Chloride (98-107) mmol/L BUN (9-20) mg/dL Creatinine (0.66-1.25) mg/dL Glucose (74-99) mg/dL Total Bilirubin (0.2-1.3) mg/dL Alkaline Phosphatase (38-126) U/L Troponin I 0.103 H* 0.088 H* (0.000-0.034) ng/mL Triglycerides (<150) mg/dL HDL Cholesterol (40-60) mg/dL 02/04/20 02/04/20 02/04/20 Range/Units 06:57 06:57 06:57 WBC (3.8-10.6) k/uL RBC 4.25 L (4.30-5.90) m/uL Hgb 11.5 L (13.0-17.5) gm/dL Hct 35.1 L (39.0-53.0) % RDW 19.2 H (11.5-15.5) % Neutrophils # (Manual) (1.3-7.7) k/uL Lymphocytes # (Manual) (1.0-4.8) k/uL Eosinophils # (Manual) (0-0.7) k/uL Basophils # (Manual) (0-0.2) k/uL Metamyelocytes # (Man) (0) k/uL Myelocytes # (Manual) (0) k/uL Nucleated RBCs (0-0) /100 WBC APTT 39.1 H (22.0-30.0) sec D-Dimer (<0.60) mg/L FEU Chloride 111 H (98-107) mmol/L BUN 32 H (9-20) mg/dL Creatinine 1.95 H (0.66-1.25) mg/dL Glucose 102 H (74-99) mg/dL Total Bilirubin (0.2-1.3) mg/dL Alkaline Phosphatase (38-126) U/L Troponin I (0.000-0.034) ng/mL Triglycerides 169 H (<150) mg/dL HDL Cholesterol 23 L (40-60) mg/dL
[2020-02-04] MEDS ORDERED: HEPARIN SODIUM 1,000 UN/ML (10ML VL) ONE (10:44)
[2020-02-04] MEDS ORDERED: LIDOCAINE 1% INJ 10MG/ML (20 ML MDV) ONE (10:44)
[2020-02-04] MEDS ORDERED: VERAPAMIL 2.5 MG/ML 2 ML AMP ONE (10:44)
[2020-02-04] MEDS ORDERED: LIDOCAINE 1% INJ 10MG/ML (20 ML MDV) SQ ONE (10:56)
[2020-02-04] MEDS ORDERED: MIDAZOLAM 2 MG/2 ML VIAL IVP ONE (10:56)
[2020-02-04] MEDS ORDERED: VERAPAMIL SYRINGE (5 MG/10 ML) INTRAARTER ONE (10:58)
[2020-02-04] MEDS ORDERED: HEPARIN SODIUM 1,000 UN/ML (10ML VL) IV ONE (11:00)
[2020-02-04] MEDS ORDERED: IV FLUID CONTINUATION 700 ML IV ONE (11:05)
--- NOTE | 2020-02-04 11:17 | P.PN ---
Subjective Progress Note Date: 02/04/20 This is a pleasant 79-year-old gentleman with history of chest pain, angina, CAD, family history of sick sinus syndrome requiring PPMs, COPD, gastroesophageal reflux disease, hypertension, renal insufficiency, nephrolithiasis, prostate cancer, obstructive sleep apnea unable to tolerate CPAP machine, anxiety, depression, former smoker and multiple other medical issues presented to the ER with complaints of radiating midsternal chest pressure/tightness to flank upon exertion( using Rototiller) with shortness of breath, lightheadedness and fatigue twice since Sunday.Reports symptoms eased when he would stop for rest. Fatigue persisted and he slept most of yesterday. Over the last few years patient has been having near syncopal episodes with nondiagnostic event monitors,etc reported per PCP. Negative for orthostatic hypotension.Troponin 0.103, 0.103. EKG reported normal sinus rhythm, nonspecifi c ST abnormalities. Electrolyte within normal limits .Total bili 1.4, alk phos 189, BNP 1570. BUN 35, creatinine 2( baseline 1.5-1.7).Afebrile, mild leukocytosis. Chest x-ray reported nonacute. Brain CT reported no acute intracranial hemorrhage or midline shift, mild to moderate diffuse age-related cerebral atrophy, chronic small vessel ischemic change or he demonstrated, stable small choroid cyst with no significant change from prior. 02/04/2020 maintain IV fluid hydration with renal function slowly improving, creatinine down to 1.95. Evaluated by a nephrology with recommendations to co ntinue with hydration pre-and post procedure. Reports anxious last night and unable to sleep. Third troponin 0.088. Blood pressure controlled .Denies chest pressure, chest pain, palpitations or increased shortness of breath. Evaluated by cardiology yesterday with recommendations noted and appreciated. Patient is scheduled for cardiac catheterization today. Afebrile, normal WBC. Hemoglobin 9.5, platelets 209. Triglycerides 169, cholesterol 148, LDL 91, low HDL, 23. Objective - Vital Signs Vital signs: Vital Signs Temp 97.9 F 02/04/20 07:48 Pulse 89 02/04/20 07:48 Resp 16 02/04/20 08:00 BP 139/78 02/04/20 07:48 Pulse Ox 93 L 02/04/20 07:48 Intake & Output 10/02/04/20 02/04/20 18:59 06:59 18:59 Intake Total 240 240 0 Output Total 200 400 Balance 40 -160 0 Weight 90.718 kg 91 kg Intake: Oral 240 240 0 Output: Urine 200 400 Other: # Voids 0 0 # Bowel Movements 0 - Exam PHYSICAL EXAM: VITAL SIGNS: As above GENERAL: Sitting up at side of bed, no acute distress, anxious HEENT: Conjunctivae normal. eyes normal. NECK: No JVD. No thyroid enlargement. CARDIOVASCULAR: S1, S2 regular. No murmur RESPIRATION: Breath sounds diminished in the bases. No rhonchi or crackles. ABDOMEN: Soft, nontender . No guarding. no masses palpable. Positive bowel sounds heard. LEGS: No edema. no swelling PSYCHIATRY: Alert and oriented X3, mood and affect normal. NERVOUS SYSTEM: Cranial N 2-12 grossly normal. Moves all 4 limbs. No focal deficits. Strength and sensation grossly intact.. Skin: Warm and dry, no rash - Labs CBC & Chem 7: 02/04/20 06:57 02/04/20 06:57 Labs: Abnormal Lab Results - Last 24 Hours (Table) 02/03/20 02/03/20 02/03/20 Range/Units 11:15 11:15 11:15 WBC 11.4 H (3.8-10.6) k/uL RBC (4.30-5.90) m/uL Hgb 12.8 L (13.0-17.5) gm/dL Hct (39.0-53.0) % RDW 19.2 H (11.5-15.5) % Neutrophils # (Manual) 8.80 H (1.3-7.7) k/uL Lymphocytes # (Manual) 0.80 L (1.0-4.8) k/uL Eosinophils # (Manual) 0.80 H (0-0.7) k/uL Basophils # (Manual) 0.23 H (0-0.2) k/uL Metamyelocytes # (Man) 0.11 H (0) k/uL Myelocytes # (Manual) 0.11 H (0) k/uL Nucleated RBCs 2 H (0-0) /100 WBC APTT (22.0-30.0) sec D-Dimer (<0.60) mg/L FEU Chloride (98-107) mmol/L BUN 35 H (9-20) mg/dL Creatinine 2.00 H (0.66-1.25) mg/dL Glucose 147 H (74-99) mg/dL Total Bilirubin 1.4 H (0.2-1.3) mg/dL Alkaline Phosphatase 189 H (38-126) U/L Troponin I 0.103 H* (0.000-0.034) ng/mL Triglycerides (<150) mg/dL HDL Cholesterol (40-60) mg/dL 02/03/20 02/03/20 02/03/20 Range/Units 14:21 14:35 17:49 WBC (3.8-10.6) k/uL RBC (4.30-5.90) m/uL Hgb (13.0-17.5) gm/dL Hct (39.0-53.0) % RDW (11.5-15.5) % Neutrophils # (Manual) (1.3-7.7) k/uL Lymphocytes # (Manual) (1.0-4.8) k/uL Eosinophils # (Manual) (0-0.7) k/uL Basophils # (Manual) (0-0.2) k/uL Metamyelocytes # (Man) (0) k/uL Myelocytes # (Manual) (0) k/uL Nucleated RBCs (0-0) /100 WBC APTT (22.0-30.0) sec D-Dimer 0.93 H (<0.60) mg/L FEU Chloride (98-107) mmol/L BUN (9-20) mg/dL Creatinine (0.66-1.25) mg/dL Glucose (74-99) mg/dL Total Bilirubin (0.2-1.3) mg/dL Alkaline Phosphatase (38-126) U/L Troponin I 0.103 H* 0.088 H* (0.000-0.034) ng/mL Triglycerides (<150) mg/dL HDL Cholesterol (40-60) mg/dL 02/04/20 02/04/20 02/04/20 Range/Units 06:57 06:57 06:57 WBC (3.8-10.6) k/uL RBC 4.25 L (4.30-5.90) m/uL Hgb 11.5 L (13.0-17.5) gm/dL Hct 35.1 L (39.0-53.0) % RDW 19.2 H (11.5-15.5) % Neutrophils # (Manual) (1.3-7.7) k/uL Lymphocytes # (Manual) (1.0-4.8) k/uL Eosinophils # (Manual) (0-0.7) k/uL Basophils # (Manual) (0-0.2) k/uL Metamyelocytes # (Man) (0) k/uL Myelocytes # (Manual) (0) k/uL Nucleated RBCs (0-0) /100 WBC APTT 39.1 H (22.0-30.0) sec D-Dimer (<0.60) mg/L FEU Chloride 111 H (98-107) mmol/L BUN 32 H (9-20) mg/dL Creatinine 1.95 H (0.66-1.25) mg/dL Glucose 102 H (74-99) mg/dL Total Bilirubin (0.2-1.3) mg/dL Alkaline Phosphatase (38-126) U/L Troponin I (0.000-0.034) ng/mL Triglycerides 169 H (<150) mg/dL HDL Cholesterol 23 L (40-60) mg/dL Assessment and Plan Assessment: Chest pain, elevated troponins, possible sub-acute non-STEMI Unstable angina Near syncope, multifactorial, secondary to the above Possible bradycardia, sick sinus syndrome in a patient with multiple prior episodes of near syncope with etiology unclear. Family history of sick sinus syndrome in multiple family members requiring PPMs Mild leukocytosis, reactive in a patient without signs or symptoms of infection. Acute on chronic renal insufficiency CAD Hypertension Hyperlipidemia, intolerant to statins Pulmonary fibrosis, history of COPD History of nicotine dependence Plan: Continue on current medication regime ,monitoring and symptomatic treatment. Maintain IV fluid hydration. Cardiac catheterization pending. Close monitoring of renal function, electrolytes with repeat labs ordered for a.m. follow closely with both cardiology and nephrology. The impression and plan of care has been dictated as directed. : I performed a history and examination of this patient, discussed the same with the dictator. I agree with the dictator's note ,documented as a scribe. Any additional findings or plans will be noted.
[2020-02-04] MEDS ORDERED: BIVALIRUDIN 250 MG in SODIUM CHLORIDE 0.9% 50 ML IV ONE (11:24)
[2020-02-04] MEDS ORDERED: BIVALIRUDIN BOLUS 250 MG/50 ML IV ONE (11:24)
[2020-02-04] MEDS ORDERED: IOPAMIDOL-370 100ML BTL INJ ONE ×2 (11:42→12:07)
[2020-02-04] MEDS ORDERED: TICAGRELOR 90 MG TAB PO ONE (11:44)
[2020-02-04] MEDS ORDERED: TICAGRELOR 90 MG TAB ONE (11:44)
[2020-02-04] MEDS ORDERED: NITROGLYCERIN 1000MCG/10ML SYRINGE INTRACORON ONE (11:46)
[2020-02-04] MEDS ORDERED: RX INFO: IV CONTRAST WAS GIVEN 1 EACH MISC MISCELLANE PRN (12:04)
[2020-02-04] MEDS ORDERED: ATROPINE SULFATE 0.1 MG/ML 10ML SYRINGE IV PRN (12:04)
[2020-02-04] MEDS ORDERED: ZOLPIDEM 5 MG TAB PO PRN (12:04)
[2020-02-04] MEDS: TAMSULOSIN 0.4 MG CAP.ER.24H PO SCH (13:05)
--- NOTE | 2020-02-04 13:06 | CC ---
CARDIAC CATHETERIZATION REPORT DATE OF SERVICE: 02/04/2020. PROCEDURE: 1. Left heart catheterization and coronary angiography. 2. PTCA and stenting of proximal left anterior descending coronary artery with a drug- eluting stent. PERFORMED BY: Dr. Abbie Ricci. Moderate conscious sedation time was 61 minutes. Patient was administered Versed. Oxygen saturation, hemodynamics and EKG were monitored closely. CLINICAL INFORMATION: Mr. Sergey Ward is a 79-year-old gentleman who has a history of noncritical CAD by catheterization in 2008. He has hypertension and chronic kidney disease and benign prostatic hypertrophy. He presented to the hospital with an episode of what seems to be a lightheadedness, dizziness, and also had nondescript chest tightness and pressure. In view of this symptoms, he was hospitalized, placed on a heparin and serial troponins suggested a non-ST elevation OK. His episodes were more or less near syncope with chest pressure as well. His creatinine was 2.0. He was hydrated and brought in for the procedure electively with the understanding that he could have worsening of renal failure, but we will take every precaution to administer the least amount of contrast. PROCEDURE NOTE: Under local anesthesia and strict aseptic precautions, a 6-Cameroonian introducer was placed in the right radial artery. The patient had a previous elbow orthopedic injury and therefore his mobility of the elbow was somewhat limited. A 6-Cameroonian introducer was placed uneventfully. A JL3.5 and JR4 catheters were used to perform coronary angiography and the same right catheter was used to check LV pressure but LV gram was not performed. Following this, I noted that he had a significant proximal LAD lesion of more than 90% and he was advised intervention that was performed expeditiously and following the intervention, the sheath was taken out and a TR band applied as per protocol with saturation in the fingers of the right hand of about 93%. Patient tolerated procedure well without complications. CARDIAC CATHETERIZATION FINDINGS: The left ventricular end-diastolic pressure was about 8 mmHg without any gradient across the aortic valve. CORONARY ANGIOGRAPHY FINDINGS: RIGHT CORONARY ARTERY: Technically, a dominant vessel. No significant disease and distally gives off 3 different branches without significant disease. All of them have minor irregularities. There is a separate conus branch that comes off and is free of significant disease. LEFT MAIN CORONARY ARTERY: Short, patent vessel free of significant disease that bifurcates into LAD and circumflex. LEFT ANTERIOR DESCENDING CORONARY ARTERY: This vessel is very large and calcified in the proximal portion. There is a long area of disease, proximally there is a 70%, then it gives off a diagonal branch and then there is a second diagonal and between these 2 diagonal, there is a 90% eccentric calcified lesion after which the caliber improves and the vessel runs all the way to the apex supplying a sizable amount of myocardium. The proximal LAD therefore is highly diseased and the disease involves 2 diagonal branches, a larger proximal first diagonal and a second diagonal also. The lesion between the 2 diagonals is the tightest. LEFT POSTERIOR CIRCUMFLEX CORONARY ARTERY: Nondominant vessel, gives off 3 obtuse marginal branches with 30% to 35% narrowing and continues distally as a posterolateral branch. Overall no significant disease in the circumflex system. Left ventriculogram was not performed. FINAL IMPRESSION: This patient has a right dominant system, a separate conus branch and no significant disease in the RCA or conus branch. Circumflex is nondominant, fair caliber and distribution no significant disease. The left anterior descending is heavily calcified and has a long area of disease, proximal disease IS 70% mid lesion between the 2 diagonals is 90% eccentric in nature and the caliber of the vessel improves. This is a significant area of disease and is heavily calcified. The left main itself is free of significant disease. Filling pressures are normal and there is no gradient across the aortic valve. RECOMMENDATIONS: I recommended PCI of LAD and proceeded to perform this in the same setting. PCI PROCEDURE DETAILS: A JL3.5 guide catheter was used to cannulate the left coronary artery. A run-through wire was used to cross the lesion, wire was kept in the diagonal branch. I could not advance the wire into the LAD because the wire did not have much curve. I therefore took a new run-through wire with more steeper curve. I advanced it into the LAD and took the first wire out. Predilatation was performed with a 3.0 caliber 15 mm Trek balloon. Two inflations were given. I then advanced a 28 mm long, 4.0 caliber Xience stent and deployed this at 12 atmospheres. Patient had chest pain and precordial ST elevation. Excellent angiographic result without complication was achieved. The sheath was taken out and a TR band applied as per protocol and patient was sent to the room in a stable condition. Results were discussed with the patient and . Excellent angiographic result without complication was achieved. I expect the patient to be discharged tomorrow if he remains stable. He will be on dual antiplatelet therapy and also Lipitor for 80 mg daily and a small and small dose of beta jessie will be resumed. He will be monitored for any tachy or dennis arrhythmias. RONI / MARYJANE: [id number] /
--- NOTE | 2020-02-04 13:13 | ECHOF ---
Referral Reason:sob, nstemi MEASUREMENTS -------- HEIGHT: 180.3 cm WEIGHT: 90.7 kg BP: 145/80 RVIDd: 3.9 cm (< 3.3) IVSd: 1.5 cm (0.6 - 1.1) LVIDd: 4.9 cm (3.9 - 5.3) LVPWd: 1.3 cm (0.6 - 1.1) IVSs: 1.6 cm LVIDs: 3.6 cm LVPWs: 2.0 cm LAESV Index (A-L): 29.08 ml/m Ao Diam: 3.8 cm (2.0 - 3.7) AV Cusp: 1.6 cm (1.5 - 2.6) MV EXCURSION: 19.176 mm (> 18.000) MV EF SLOPE: 111 mm/s (70 - 150) EPSS: 1.8 cm MV E Neil: 0.50 m/s MV DecT: 284 ms MV A Neil: 0.96 m/s MV E/A Ratio: 0.52 RAP: 5.00 mmHg RVSP: 31.92 mmHg FINDINGS -------- This was a technically adequate study. The left ventricular size is normal. There is moderate concentric left ventricular hypertrophy. O verall left ventricular systolic function is low-normal with, an EF between 50 - 55 %. Possible Dis micaela Septum Hypokinesis. The right ventricle is mild to moderately enlarged. LA is midly dilated 29-33ml/m2. The right atrium is mildly enlarged. Interatrial and interventricular septum intact. There is mild aortic valve sclerosis. There is no evidence of aortic regurgitation. There is no e vidence of aortic stenosis. Mild mitral regurgitation is present. Mild tricuspid regurgitation present. There is no evidence of pulmonary hypertension. The right v entricular systolic pressure, as measured by Doppler, is 31.92mmHg. There is no pulmonic regurgitation present. The aortic root size is normal. Normal inferior vena cava with normal inspiratory collapse consistent with estimated right atrial pre ssure of 5 mmHg. There is no pericardial effusion. CONCLUSIONS -------- 1. The left ventricular size is normal. 2. There is moderate concentric left ventricular hypertrophy. 3. Overall left ventricular systolic function is low-normal with, an EF between 50 - 55 %. 4. Possible Distal Septum Hypokinesis. 5. The right ventricle is mild to moderately enlarged. 6. LA is midly dilated 29-33ml/m2. 7. The right atrium is mildly enlarged. 8. There is mild aortic valve sclerosis. 9. Mild mitral regurgitation is present. 10. Mild tricuspid regurgitation present. LINUX ADMIN ENGINEER: Iram Dolan RDCS
[2020-02-04 14:03] VITALS: BMI 27.9
[2020-02-04] MEDS: NITROGLYCERIN SL TABS 0.4 MG TAB SUBLINGUAL PRN ×2 (15:16→16:44)
[2020-02-04] MEDS: MAG HYDROX/AL HYDROX/SIMETH 30 ML CUP PO PRN ×2 (15:41→23:45)
--- NOTE | 2020-02-04 16:38 | US ---
EXAMINATION TYPE: US kidneys/renal and bladder DATE OF EXAM: 02/04/2020 COMPARISON: US 12/24/19; CT 12/17/18 CLINICAL HISTORY: judit. HTN; Hx of renal stones, prostate CA, hernia repair sx EXAM MEASUREMENTS: Right Kidney: 8.3 x 3.8 x 4.1 cm Left Kidney: 11.4 x 4.1 x 4.4 cm Right Kidney: No hydronephrosis, few small echogenic, shadowing foci seen in lower pole; size is smal l compared to size of Lt kidney Left Kidney: No hydronephrosis or masses seen Bladder: wnl; pt just voided prior to US Bilateral Jets seen: No Spleen is incidentally seen and enlarged measuring 20.8 cm IMPRESSION: Findings most consistent with nonobstructing right renal calculi. No evidence of bilateral hydronephr osis. Incidental splenomegaly.
[2020-02-04] MEDS: FAMOTIDINE 20 MG/2 ML VIAL IV SCH ×2 (17:02→21:15)
[2020-02-04] MEDS ORDERED: ATORVASTATIN 80 MG TAB PO SCH (21:00)
[2020-02-04] MEDS ORDERED: amLODIPine 5 MG TAB PO SCH (21:00)
[2020-02-04] MEDS: SODIUM CHLORIDE 0.9% 1,000 ML IV SCH (21:03)
[2020-02-04] MEDS: amLODIPine 10 MG TAB PO SCH (21:08)
[2020-02-04] MEDS: METOPROLOL TARTRATE 12.5 MG TAB PO SCH (21:08)
[2020-02-05 00:55] VITALS: RESP 18
[2020-02-05] MEDS: SODIUM CHLORIDE 0.9% 1,000 ML IV SCH (01:44)
[2020-02-05] MEDS: PANTOPRAZOLE 40 MG TABLET PO SCH (03:00)
[2020-02-05] MEDS: ALPRAZolam 0.5 MG TAB PO PRN ×2 (03:13→09:28)
[2020-02-05 05:23] VITALS: TEMP 97.7
[2020-02-05 07:38] LABS: Magnesium 2.1 mg/dL (1.6-2.3); Potassium 4.1 mmol/L (3.5-5.1)
[2020-02-05 07:48] LABS: Anisocytosis Slight; Basophils # (A) 0.2 k/uL (0-0.2); Basophils % (A) 2 %; Eosinophils # (A) 0.3 k/uL (0-0.7); Eosinophils % (A) 3 %; HCT 35.9 % (39.0-53.0); HGB 11.9 gm/dL (13.0-17.5); Lymphocytes # (A) 1.1 k/uL (1.0-4.8); Lymphocytes % (A) 11 %; MCH 27.1 pg (25.0-35.0); MCHC 33.1 g/dL (31.0-37.0); Mean Platelet Volume 10.8; Microcytosis Slight; Monocytes # (A) 0.5 k/uL (0-1.0); Monocytes % (A) 5 %; Neutrophils % (A) 78 %; Platelet Count 242 k/uL (150-450); Poikilocytosis Slight; RBC 4.38 m/uL (4.30-5.90); RDW 19.1 % (11.5-15.5); WBC 10.4 k/uL (3.8-10.6)
[2020-02-05] MEDS ORDERED: TICAGRELOR 90 MG TAB PO SCH (09:00)
[2020-02-05] MEDS ORDERED: ASPIRIN 81 MG PO SCH (09:00)
--- NOTE | 2020-02-05 09:25 | P.PN ---
Subjective Patient is seen in follow-up for acute kidney injury on chronic kidney disease. Patient has chronic kidney disease stage III with baseline creatinine in the range of 1.5-2. Renal function stable. Underwent cardiac catheterization on February 03 with stent placed to the LAD. No active complaints at this time. No chest pain or shortness of breath. Vital signs are stable. General: The patient appeared well nourished and normally developed. HEENT: Head exam is unremarkable. Neck is without jugular venous distension. LUNGS: Lungs are clear to auscultation and percussion. Breath sounds decreased. HEART: Rate and Rhythm are regular. ABDOMEN: Abdominal exam reveals normal bowel sounds. Non-tender and non- distended. EXTREMITITES: No clubbing, cyanosis, or edema. Objective - Vital Signs Vital signs: Vital Signs Temp 97.7 F 02/05/20 05:21 Pulse 69 02/05/20 05:21 Resp 18 02/05/20 05:21 BP 139/84 02/05/20 05:21 Pulse Ox 97 02/05/20 05:21 Intake & Output 02/04/20 02/05/20 02/05/20 18:59 06:59 18:59 Intake Total 710 240 Output Total 300 Balance 410 240 Weight 91 kg 90.5 kg Intake: IV 230 Oral 480 240 Output: Urine 300 Other: # Voids 1 3 # Bowel Movements 0 4 - Labs CBC & Chem 7: 02/05/20 06:39 02/05/20 06:39 Labs: Abnormal Lab Results - Last 24 Hours (Table) 02/05/20 02/05/20 Range/Units 06:39 06:39 Hgb 11.9 L (13.0-17.5) gm/dL Hct 35.9 L (39.0-53.0) % RDW 19.1 H (11.5-15.5) % Neutrophils # 8.0 H (1.3-7.7) k/uL Chloride 110 H (98-107) mmol/L BUN 28 H (9-20) mg/dL Creatinine 1.89 H (0.66-1.25) mg/dL Glucose 134 H (74-99) mg/dL Assessment and Plan Plan: Assessment: 1. Mild acute kidney injury mostly prerenal secondary to hemodynamic instability. Resolved. 2. Chronic kidney disease stage III with baseline creatinine in the range of 1.5-2. GFR near baseline. Etiology is nephrosclerosis. 3. Non-ST elevated myocardial infarction status post cardiac catheterization on February 01 with stent placed to the LAD. Patient received IV hydration pre-and post cardiac catheterization. 4. Hypertension with chronic kidney disease. Controlled. 5. Right kidney atrophy. Plan: Encourage oral intake. Avoid nephrotoxins. Follow-up urinalysis. Stable to be discharged home from nephrology standpoint. Repeat BMP and magnesium level 2 to 3 days postdischarge. Follow up outpatient in 1-2 weeks.
[2020-02-05] MEDS: METOPROLOL TARTRATE 12.5 MG TAB PO SCH (09:26)
[2020-02-05] MEDS: FAMOTIDINE 20 MG/2 ML VIAL IV SCH (09:26)
[2020-02-05] MEDS: hydrALAZINE HCL 25 MG TAB PO SCH (09:26)
[2020-02-05 09:50] VITALS: BP 163/77; PULSE 100
[2020-02-05] MEDS: TAMSULOSIN 0.4 MG CAP.ER.24H PO SCH (10:05)
--- NOTE | 2020-02-05 11:11 | P.PN ---
Subjective HISTORY OF PRESENTING ILLNESS This is a pleasant 79-year-old male past medical history significant for nonobstructive coronary artery disease with a 20% ostial narrowing of the left main noted on catheterization 2008, hypertension, COPD, dyslipidemia intolerant to statins, chronic kidney disease follows with nephrology and pulmonary fibrosis. He follows in the office with Dr. Apple. He underwent cardiac catheterization yesterday revealing obstructive disease in the LAD. He is s/p PCI. He had an episode of epigastric pain yesterday afternoon that was relieved with antacids. EKG obtained revealed no significant ST changes. Blood pressure 163/77 heart rate 100 afebrile maintaining oxygen saturation on room air. Laboratory data reviewed, WBC 10.4, hemoglobin 11.9, platelets 242, sodium 140, potassium 4.1, creatinine 1.89. Currently maintained on aspirin 81 mg daily, amlodipine 10 mg at bedtime, atorvastatin 80 mg daily, hydralazine 25 mg 3 times a day, metoprolol 12.5 mg twice a day and brilinta 90 mg twice a day. PHYSICAL EXAMINATION CONSTITUTIONAL: No apparent distress. HEENT: Head is normocephalic. Pupils are equal, round. Sclerae anicteric. Mucous membranes of the mouth are moist. No JVD. No carotid bruit. CHEST EXAMINATION: Soft rales bilaterally, no rhonchi or wheezes. No chest wall tenderness is noted on palpation or with deep breathing. HEART EXAMINATION: Regular rate and rhythm. S1, S2 heard. No murmurs, gallops or rub. Distant heart sounds. EXTREMITIES: 2+ peripheral pulses, no lower extremity edema and no calf tenderness. Right radial access site, no evidence of hematoma, bruising or blee ding with strong distal pulses. ASSESSMENT Unstable angina Non-ST elevated myocardial infarction Acute on chronic kidney disease Hypertension Dyslipidemia, intolerant to statins COPD History of pulmonary fibrosis Nonobstructive coronary artery disease noted in catheterization in 2008 PLAN Stable for discharge on current medical regimen. Follow-up in the office with Dr. Apple in one week. Outpatient event monitor will be set up through the office. Nurse Practitioner note has been reviewed, I agree with a documented findings and plan of care. Patient was seen and examined. Objective - Vital Signs Vital signs: Vital Signs Temp 97.7 F 02/05/20 05:21 Pulse 69 02/05/20 05:21 Resp 18 02/05/20 05:21 BP 139/84 02/05/20 05:21 Pulse Ox 97 02/05/20 05:21 Intake & Output 02/04/20 02/05/20 02/05/20 18:59 06:59 18:59 Intake Total 710 240 Output Total 300 Balance 410 240 Weight 91 kg 90.5 kg Intake: IV 230 Oral 480 240 Output: Urine 300 Other: # Voids 1 3 # Bowel Movements 0 4 - Labs CBC & Chem 7: 02/05/20 06:39 02/05/20 06:39 Labs: Abnormal Lab Results - Last 24 Hours (Table) 02/05/20 02/05/20 Range/Units 06:39 06:39 Hgb 11.9 L (13.0-17.5) gm/dL Hct 35.9 L (39.0-53.0) % RDW 19.1 H (11.5-15.5) % Neutrophils # 8.0 H (1.3-7.7) k/uL Chloride 110 H (98-107) mmol/L BUN 28 H (9-20) mg/dL Creatinine 1.89 H (0.66-1.25) mg/dL Glucose 134 H (74-99) mg/dL
--- NOTE | 2020-02-05 12:25 | P.DS ---
Providers Date of admission: 02/03/20 12:57 Expected date of discharge: 02/05/20 Attending physician: Barrington Goyal Consults: 02/03/20 12:38 Consult Physician Urgent Consulting Provider: Carmen Sauer Consult Reason/Comments: Unstable angina, hypertension Do you want consulting provider notified?: Yes 02/03/20 16:08 Consult Physician Routine Consulting Provider: Harshil Chapin Reason/Comments: renal failure, potential cath. Do you want consulting provider notified?: Yes 02/04/20 12:04 Consult Physician Routine Consulting Provider: Carmen Sauer Consult Reason/Comments: Post Interventional patient Do you want consulting provider notified?: Already Contacted Primary care physician: [facility] Course: Final Diagnoses: NSTEMI Unstable angina Near syncope, multifactorial, secondary to the above;multiple prior episodes of near syncope with etiology unclear. Family history of sick sinus syndrome in multiple family members requiring PPMs Mild leukocytosis, reactive in a patient without signs or symptoms of infection. Acute on chronic renal insufficiency CAD Hypertension Hyperlipidemia, intolerant to statins; discussed using pravastatin Pulmonary fibrosis, history of COPD History of nicotine dependence Hospital course:This is a pleasant 79-year-old gentleman with history of chest pain, angina, CAD, family history of sick sinus syndrome requiring PPMs, COPD, gastroesophageal reflux disease, hypertension, renal insufficiency, nephrolithiasis, prostate cancer, obstructive sleep apnea unable to tolerate CPAP machine, anxiety, depression, former smoker and multiple other medical issues presented to the ER with complaints of radiating midsternal chest pressure/tightness to flank upon exertion( using Rototiller) with shortness of breath, lightheadedness and fatigue twice since Sunday.Reports symptoms eased when he would stop for rest. Fatigue persisted and he slept most of yesterday. Over the last few years patient has been having near syncopal episodes with nondiagnostic event monitors,etc reported per PCP. Negative for orthostatic hypotension.Troponin 0.103, 0.103. EKG reported normal sinus rhythm, no nspecific ST abnormalities. Electrolyte within normal limits .Total bili 1.4, alk phos 189, BNP 1570. BUN 35, creatinine 2( baseline 1.5-1.7).Afebrile, mild leukocytosis. Chest x-ray reported nonacute. Brain CT reported no acute intracranial hemorrhage or midline shift, mild to moderate diffuse age-related cerebral atrophy, chronic small vessel ischemic change or he demonstrated, stable small choroid cyst with no significant change from prior. 02/04/2020 maintain IV fluid hydration with renal function slowly improving, creatinine down to 1.95. Evaluated by a nephrology with recommendations to continue with hydration pre-and post procedure. Reports anxious last night and unable to sleep. Third troponin 0.088. Blood pressure controlled .Denies chest pressure, chest pain, palpitations or increased shortness of breath. Evaluated by cardiology yesterday with recommendations noted and appreciated. Patient is scheduled for cardiac catheterization today. Afebrile, normal WBC. Hemoglobin 9.5, platelets 209. Triglycerides 169, cholesterol 148, LDL 91, low HDL, 23. Significant clinical improvement. Creatinine down to 1.89 with IV fluid hydration. Denies chest pain, palpitations or shortness of breath. Cleared by both nephrology and cardiology for discharge. Patient is being discharged home today in stable condition with guarded prognosis. Recheck renal function in 3 days, labs ordered for outpatient. The impression and plan of care has been dictated as directed. : I performed a history and examination of this patient, discussed the same with the dictator. I agree with the dictator's note ,documented as a scribe. Any additional findings or plans will be noted. Patient Condition at Discharge: Stable Plan - Discharge Summary Discharge Rx Participant: Yes New Discharge Prescriptions: New Ticagrelor [Brilinta] 90 mg PO BID #180 tab hydrALAZINE HCL [Apresoline] 25 mg PO TID #30 tab Aspirin 81 mg PO DAILY #30 chew Metoprolol Tartrate [Lopressor] 12.5 mg PO BID #60 tab Pravastatin Sodium [Pravachol] 40 mg PO DAILY #30 tab Continue amLODIPine [Norvasc] 10 mg PO HS Pantoprazole Sodium [Protonix] 40 mg PO DAILY Cholecalciferol [Vitamin D3 (25 Mcg = 1000 Iu)] 1,000 unit PO DAILY Vit C/E/Zn/Coppr/Lutein/Zeaxan [Preservision Areds 2 Softgel] 1 cap PO BID calcium polycarbophiL [Fibercon] 625 mg PO DAILY Tamsulosin HCl [Flomax] 0.4 mg PO DAILY LORazepam [Ativan] 1 mg PO TID PRN PRN Reason: Anxiety Discontinued Metoprolol Succinate (ER) [Toprol Xl] 25 mg PO DAILY Discharge Medication List amLODIPine [Norvasc] 10 mg PO HS 01/21/14 [History] Pantoprazole Sodium [Protonix] 40 mg PO DAILY 03/08/16 [History] Cholecalciferol [Vitamin D3 (25 Mcg = 1000 Iu)] 1,000 unit PO DAILY 12/12/18 [History] Vit C/E/Zn/Coppr/Lutein/Zeaxan [Preservision Areds 2 Softgel] 1 cap PO BID 12/12/18 [History] calcium polycarbophiL [Fibercon] 625 mg PO DAILY 12/12/18 [History] LORazepam [Ativan] 1 mg PO TID PRN 02/03/20 [History] Tamsulosin HCl [Flomax] 0.4 mg PO DAILY 02/03/20 [History] Aspirin 81 mg PO DAILY #30 chew 02/05/20 [Rx] Metoprolol Tartrate [Lopressor] 12.5 mg PO BID #60 tab 02/05/20 [Rx] Pravastatin Sodium [Pravachol] 40 mg PO DAILY #30 tab 02/05/20 [Rx] Ticagrelor [Brilinta] 90 mg PO BID #180 tab 02/05/20 [Rx] hydrALAZINE HCL [Apresoline] 25 mg PO TID #30 tab 02/05/20 [Rx] Follow up Appointment(s)/Referral(s): Alexandre Apple MD [STAFF PHYSICIAN] - 02/12/20 2:30 pm () [facility] [NON-STAFF] - 1 Week (After discharge, you will follow- up with your gamma operator. Once you have obtained a prescription for cardiac rehab, please call [phone] to set up an evaluation.) Barrington Goyal Jr, DO [Primary Care Provider] - 02/12/20 10:30 am () Harshil Chapin DO [STAFF PHYSICIAN] - 02/25/20 11:00 am (Sunday) Ambulatory/Diagnostic Orders: Complete Blood Count w/diff [LAB.AMB] Time Frame: 3 Days, Location: None Selected Patient Instructions/Handouts: *Surgery [facility] - After Heart Catheterization - Metal Furniture Repairer Instructions Activity/Diet/Wound Care/Special Instructions: 30 day event monitor-bulk picker from cardiology office post discharge. They are not available 12pm-1pm Discharge Disposition: HOME SELF-CARE
== END 2020-02-05 11:33 | disposition home or self-care (01) ==
LOC: EC 10:41 → 3SCARD 12:57
PROVIDERS: ADMIT Family Medicine; ATTEND Family Medicine
DX: I21.4 Non-ST elevation (NSTEMI) myocardial infarction (principal); I25.110 Atherosclerotic heart disease of native coronary artery with unstable angina pectoris; D72.829 Elevated white blood cell count, unspecified; E78.5 Hyperlipidemia, unspecified; F32.9 Major depressive disorder, single episode, unspecified; F41.9 Anxiety disorder, unspecified; G93.0 Cerebral cysts; H91.90 Unspecified hearing loss, unspecified ear; I07.1 Rheumatic tricuspid insufficiency; I12.9 Hypertensive chronic kidney disease with stage 1 through stage 4 chronic kidney disease, or unspecified chronic kidney disease; I25.2 Old myocardial infarction; J44.9 Chronic obstructive pulmonary disease, unspecified; J84.10 Pulmonary fibrosis, unspecified; N17.9 Acute kidney failure, unspecified; N18.30 Chronic kidney disease, stage 3 unspecified; Z79.02 Long term (current) use of antithrombotics/antiplatelets; Z79.82 Long term (current) use of aspirin; Z79.899 Other long term (current) drug therapy; Z80.1 Family history of malignant neoplasm of trachea, bronchus and lung; Z80.42 Family history of malignant neoplasm of prostate; Z80.8 Family history of malignant neoplasm of other organs or systems; Z82.49 Family history of ischemic heart disease and other diseases of the circulatory system; Z85.828 Personal history of other malignant neoplasm of skin; Z86.711 Personal history of pulmonary embolism; Z87.891 Personal history of nicotine dependence
CPT/HCPCS: 93005 ×3; 96376; 96365; 96375; 99291; 36415; 93306; 93458; 85379; 83880; 80061; 80053; 80048 ×2; 84443; 83735 ×3; 84484; 85025 ×3; 85610; 85730 ×2; 71046; 76770; 70450; G0378 ×3; C9600; C1887; C1725; C1769 ×3; C1874; C1894; J2250; J0360; J1644 ×3; J2001; J0583; Q9967

== ENCOUNTER 2020-04-16 12:22 | Inpatient (IN) | payer MEDICARE ==
[2020-04-16] MEDS ORDERED: ONDANSETRON 4 MG/2 ML VIAL IVP STA (12:42)
[2020-04-16] MEDS ORDERED: HYDROmorphone 0.5 MG/0.5 ML SYRINGE IVP STA (12:42)
[2020-04-16 13:11] LABS: Albumin 4.4 g/dL (3.5-5.0); Calcium 9.3 mg/dL (8.4-10.2); Potassium 4.7 mmol/L (3.5-5.1); Total Bilirubin 1.5 mg/dL (0.2-1.3); Total Protein 7.2 g/dL (6.3-8.2)
[2020-04-16 13:14] LABS: Anisocytosis Slight; HCT 38.1 % (39.0-53.0); HGB 12.8 gm/dL (13.0-17.5); MCH 26.9 pg (25.0-35.0); MCHC 33.6 g/dL (31.0-37.0); MCV 79.9 fL (80.0-100.0); Mean Platelet Volume 10.8; Microcytosis Slight; Platelet Count 343 k/uL (150-450); Poikilocytosis Slight; RBC 4.77 m/uL (4.30-5.90); RDW 19.8 % (11.5-15.5)
[2020-04-16 13:15] LABS: INR 1.1 (<1.2); Partial Thromboplastin Time 24.5 sec (22.0-30.0); Prothrombin Time 11.4 sec (9.0-12.0)
--- NOTE | 2020-04-16 13:16 | XR ---
EXAMINATION TYPE: XR Hip RT and AP Pelvis DATE OF EXAM: 04/16/2020 COMPARISON: None HISTORY: Fall, pain TECHNIQUE: AP pelvis and 2 views right hip FINDINGS: There is a distal femoral neck fracture on the right. Femoral head articulates with the nichole tabulum. No additional fractures are evident. Symphysis pubis and sacroiliac joints are normal. Multiple surgical clips are within the pelvis. IMPRESSION: 1. Distal right femoral neck fracture.
--- NOTE | 2020-04-16 13:17 | XR ---
EXAMINATION TYPE: XR chest 1V DATE OF EXAM: 04/16/2020 COMPARISON: 02/03/2020 INDICATION: Fall, pain TECHNIQUE: Single frontal view of the chest is obtained. FINDINGS: The heart size is normal. The pulmonary vasculature is normal. The lungs are clear. IMPRESSION: 1. No acute pulmonary process.
[2020-04-16] MEDS ORDERED: ONDANSETRON 4 MG/2 ML VIAL IVP PRN (13:31)
[2020-04-16] MEDS ORDERED: NALOXONE 0.4 MG/ML 1 ML VIAL IV PRN (13:31)
[2020-04-16 13:32] LABS: Band Neutrophils % 3 %; Eosinophils # (M) 0.13 k/uL (0-0.7); Large Platelets Present; Lymphocytes # (M) 1.52 k/uL (1.0-4.8); Metamyelocytes # (M) 0.13 k/uL (0); Metamyelocytes % 1 %; Monocytes # (M) 0.38 k/uL (0-1.0); Myelocytes # (M) 0.25 k/uL (0); Myelocytes % 2 %; Neutrophils % (M) 81 %; Nucleated Red Blood Cells 1 /100 WBC (0-0); Total Cells Counted 200; WBC 12.7 k/uL (3.8-10.6)
--- NOTE | 2020-04-16 13:32 | ED ---
Fall HPI - General Chief Complaint: Fall Stated Complaint: Fall Time Seen by Provider: 04/16/20 12:33 Source: patient, RN notes reviewed Mode of arrival: wheelchair Limitations: physical limitation - History of Present Illness Initial Comments: This a 80-year-old male presents emergency Department with chief complaint of Fall, right hip pain. Patient states that he slipped on some ice falling onto his right hip. Patient no head injury no loss conscious no back neck pain no other extremity pain. Patient had no recent orthopedic surgeries no orthopedic surgeon. Patient states that he has severe right hip pain unable to bear weight on his right hip. Patient denies any abdominal complaints. Patient does take aspirin and Plavix. - Related Data Home Medications Medication Instructions Recorded Confirmed amLODIPine [Norvasc] 10 mg PO HS 01/21/14 02/03/20 Pantoprazole Sodium [Protonix] 40 mg PO DAILY 03/08/16 02/03/20 Cholecalciferol [Vitamin D3 (25 1,000 unit PO DAILY 12/12/18 02/03/20 Mcg = 1000 Iu)] Vit C/E/Zn/Coppr/Lutein/Zeaxan 1 cap PO BID 12/12/18 02/03/20 [Preservision Areds 2 Softgel] calcium polycarbophiL [Fibercon] 625 mg PO DAILY 12/12/18 02/03/20 LORazepam [Ativan] 1 mg PO TID PRN 02/03/20 02/03/20 Tamsulosin HCl [Flomax] 0.4 mg PO DAILY 02/03/20 02/03/20 Previous Rx's Medication Instructions Recorded Aspirin 81 mg PO DAILY #30 chew 02/05/20 Metoprolol Tartrate [Lopressor] 12.5 mg PO BID #60 tab 02/05/20 Pravastatin Sodium [Pravachol] 40 mg PO DAILY #30 tab 02/05/20 Ticagrelor [Brilinta] 90 mg PO BID #180 tab 02/05/20 hydrALAZINE HCL [Apresoline] 25 mg PO TID #30 tab 02/05/20 Allergies Allergy/AdvReac Type Severity Reaction Status Date / Time No Known Allergies Allergy Verified 04/16/20 12:32 Review of Systems ROS Statement: Those systems with pertinent positive or pertinent negative responses have been documented in the HPI. ROS Other: All systems not noted in ROS Statement are negative. Past Medical History Past Medical History: Cancer, Chest Pain / Angina, COPD, GERD/Reflux, Hearing Disorder / Deafness, Hyperlipidemia, Hypertension, Osteoarthritis (OA), Prostate Disorder, Pulmonary Embolus (PE) Additional Past Medical History / Comment(s): Interstitial lung disease, pulmonary fibrosis, PE in 2012-pt cannot recall laterality, past home O2 use but none now, RIANA-cannot tolerate Cpap, prostate cancer with recent radiation treatment, skin cancer with removals, nephrolithiasis, migraines, compression fracture low back, bilateral elbow fractures with surgery, PUD, jaundiced as a child, [place] bilaterally. History of Any Multi-Drug Resistant Organisms: None Reported Past Surgical History: Appendectomy, Cholecystectomy, Heart Catheterization, Heart Catheterization With Stent, Hernia Repair, Joint Replacement, Orthopedic Surgery Additional Past Surgical History / Comment(s): Prostate biopsy, L hand partial amp of 2 fingers, L knee ACL repair, R knee arthroscopy, bilateral total elbow replacements per pt, bilateral cataract removals, L inguinal hernia repair, cardiac caths x 2, EGD, colonoscopy, skin cancer removals. Past Anesthesia/Blood Transfusion Reactions: No Reported Reaction Past Psychological History: Anxiety, Depression Smoking Status: Never smoker Past Alcohol Use History: None Reported Past Drug Use History: None Reported - Past Family History Brother(s) Family Medical History: Cancer Additional Family Medical History / Comment(s): ONE BROTHER HAD LUNG CA & ANOTHER HAD MELANOMA Mother Family Medical History: AICD/Pacemaker Father Family Medical History: No Reported History Sister(s) Family Medical History: No Reported History General Exam Limitations: physical limitation General appearance: alert, in no apparent distress Head exam: Present: atraumatic, normocephalic, normal inspection Neck exam: Present: normal inspection. Absent: tenderness, meningismus, lymphadenopathy Respiratory exam: Present: normal lung sounds bilaterally. Absent: respiratory distress, wheezes, rales, rhonchi, stridor Cardiovascular Exam: Present: regular rate, normal rhythm, normal heart sounds. Absent: systolic murmur, diastolic murmur, rubs, gallop, clicks GI/Abdominal exam: Present: soft, normal bowel sounds. Absent: distended, tenderness, guarding, rebound, rigid Extremities exam: Present: other (Pain with any range of motion the right hip, there is some shortening patient is in a flexed position. Neurovascular intact) Course Vital Signs 01/01/21 12:28 Temperature 97.5 F L Pulse Rate 83 Respiratory 16 Rate Blood Pressure 163/72 O2 Sat by Pulse 91 L Oximetry Medical Decision Making - Medical Decision Making Case discussed with andrew anaya on-call for orthopedics. Patiently admitted for orthopedic surgery will have on-call medicine for surgical clearance - Lab Data Result diagrams: 04/16/20 12:48 04/16/20 12:48 Lab Results 04/16/20 04/16/20 04/16/20 Range/Units 12:48 12:48 12:48 WBC 12.8 H (3.8-10.6) k/uL RBC 4.77 (4.30-5.90) m/uL Hgb 12.8 L (13.0-17.5) gm/dL Hct 38.1 L (39.0-53.0) % MCV 79.9 L (80.0-100.0) fL MCH 26.9 (25.0-35.0) pg MCHC 33.6 (31.0-37.0) g/dL RDW 19.8 H (11.5-15.5) % Plt Count 343 (150-450) k/uL MPV 10.8 Poikilocytosis Slight Anisocytosis Slight Microcytosis Slight PT 11.4 (9.0-12.0) sec INR 1.1 (<1.2) APTT 24.5 (22.0-30.0) sec Sodium 142 (137-145) mmol/L Potassium 4.7 (3.5-5.1) mmol/L Chloride 109 H (98-107) mmol/L Carbon Dioxide 26 (22-30) mmol/L Anion Gap 7 mmol/L BUN 39 H (9-20) mg/dL Creatinine 1.95 H (0.66-1.25) mg/dL Est GFR (CKD-EPI)AfAm 37 (>60 ml/min/1.73 sqM) Est GFR (CKD-EPI)NonAf 32 (>60 ml/min/1.73 sqM) Glucose 121 H (74-99) mg/dL Calcium 9.3 (8.4-10.2) mg/dL Total Bilirubin 1.5 H (0.2-1.3) mg/dL AST 39 (17-59) U/L ALT 31 (4-49) U/L Alkaline Phosphatase 155 H (38-126) U/L Total Protein 7.2 (6.3-8.2) g/dL Albumin 4.4 (3.5-5.0) g/dL Disposition Clinical Impression: Fall, Fracture of femoral neck, right, closed Disposition: ADMITTED IP TO THIS HOSP Condition: Fair Referrals: Barrington Goyal Jr, [Primary Care Provider] - 1-2 days
[2020-04-16] MEDS: HYDROmorphone 0.5 MG/0.5 ML SYRINGE IVP PRN ×4 (13:54→21:14)
[2020-04-16] MEDS: carvediloL 12.5 MG TAB PO SCH (16:30)
[2020-04-16] MEDS: LORazepam 0.5 MG TAB PO PRN (17:59)
[2020-04-16] MEDS: CYCLOBENZAPRINE 10 MG TAB PO PRN (19:28)
[2020-04-16] MEDS: PRAVASTATIN SODIUM 40 MG TAB PO SCH (20:22)
[2020-04-16] MEDS: PANTOPRAZOLE 40 MG TABLET PO SCH (20:22)
[2020-04-16] MEDS: ACETAMINOPHEN TAB 325 MG TAB PO PRN (20:52)
[2020-04-16] MEDS ORDERED: LORazepam 0.5 MG TAB PO SCH (21:00)
[2020-04-16] MEDS ORDERED: HYDROmorphone 1 MG/ML 1 ML SYRINGE IVP STA (22:12)
[2020-04-17] MEDS: HYDROmorphone 1 MG/ML 1 ML SYRINGE IVP PRN ×5 (02:16→20:24)
[2020-04-17] MEDS: ACETAMINOPHEN TAB 325 MG TAB PO PRN (04:35)
[2020-04-17] MEDS: CYCLOBENZAPRINE 10 MG TAB PO PRN (06:04)
[2020-04-17 06:20] LABS: Appearance,Urine Clear (Clear); Bilirubin,Urine Negative (Negative); Blood,Urine Negative (Negative); Color,Urine Yellow; Glucose,Urine (UA) Negative (Negative); Ketones,Urine Negative (Negative); Leukocyte Esterase,Urine Negative (Negative); Mucus,Urine Rare /hpf; Nitrite,Urine Negative (Negative); PH, Urine 5.5 (5.0-8.0); Protein,Urine 1+ (Negative); RBC,Urine 1 /hpf (0-5); Specific Gravity,Urine 1.025 (1.001-1.035); Urobilinogen,Urine <2.0 mg/dL (<2.0); WBC,Urine 3 /hpf (0-5)
[2020-04-17] MEDS: LORazepam 0.5 MG TAB PO PRN (07:45)
[2020-04-17] MEDS: carvediloL 12.5 MG TAB PO SCH ×2 (07:45→16:49)
[2020-04-17] MEDS ORDERED: TRANEXAMIC ACID 1,000 MG in SODIUM CHLORIDE 0.9% 100 ML IVPB ONE ×2 (09:39→12:00)
[2020-04-17 10:34] LABS: Anisocytosis Slight; HCT 33.8 % (39.0-53.0); HGB 11.8 gm/dL (13.0-17.5); MCH 28.1 pg (25.0-35.0); MCHC 34.8 g/dL (31.0-37.0); MCV 80.7 fL (80.0-100.0); Mean Platelet Volume 10.6; Microcytosis Slight; Platelet Count 268 k/uL (150-450); Poikilocytosis Moderate; RBC 4.19 m/uL (4.30-5.90); RDW 19.8 % (11.5-15.5)
--- NOTE | 2020-04-17 10:35 | P.HPOR ---
History of Present Illness H&P Date: 04/16/20 Chief Complaint: Right femoral neck fracture Patient is a 80-year-old male who presented to [facility] yesterday afternoon after falling on ice. Patient was alert his friend's house when he slipped and fell directly onto the right lower extremity. He denied hitting his head during the fall. He was unable to weight-bear after the injury he was brought to [facility] for further evaluation. Upon arrival to the emergency room, imaging test were taken which demonstrated a right femoral neck fracture. I was contacted by the emergency room staff, I was able to review the images with my attending Dr. Granados, patient was then admitted to the hospital under our orthopedic care with plan for likely surgical intervention. Consults were placed to internal medicine for medical clearance. Patient was examined today at bedside by myself and Dr. Granados. Patient notes most of the discomfort of the right upper leg, anytime he moves the leg. He denies any right knee pain, right lower leg, foot or ankle pain. He is having no discomfort of the left lower extremity. He has no pain involving the bilateral upper extremities. He denies any new onset cervical, thoracic or lumbar pain. Patient admits to frequent falls over the last few years. Patient states that he is not very active, he used to enjoy hunting but does not do that much anymore. He has history of bilateral elbow fractures that resulted in replacement of both elbows. Pertinent past medical history, he does have a history of 2 recent stents that were put in January 2020. He also has a history of prostate cancer which he is followed by the urology group and oncology group in [place]. Currently patient denies any headaches, lightheadedness, chest pain, shortness of breath, nausea vomiting, fever or chills. Review of Systems Constitutional: Reports as per HPI Past Medical History Past Medical History: Cancer, Chest Pain / Angina, COPD, GERD/Reflux, Hearing Disorder / Deafness, Hyperlipidemia, Hypertension, Myocardial Infarction ([place]), Osteoarthritis (OA), Prostate Disorder, Pulmonary Embolus (PE) Additional Past Medical History / Comment(s): Interstitial lung disease, pulmonary fibrosis, PE in 2012-pt cannot recall laterality, past home O2 use but none now, RIANA-cannot tolerate Cpap, prostate cancer with radiation treatment, skin cancer with removals, nephrolithiasis, migraines, compression fracture low back, bilateral elbow fractures with surgery, PUD, jaundiced as a child, [place] bilaterally. "mild" [place] in january 2020. Last Myocardial Infarction Date:: January 2020 History of Any Multi-Drug Resistant Organisms: None Reported Past Surgical History: Appendectomy, Cholecystectomy, Heart Catheterization, Heart Catheterization With Stent, Hernia Repair, Joint Replacement, Orthopedic Surgery Additional Past Surgical History / Comment(s): Prostate biopsy, L hand partial amp of 2 fingers, L knee ACL repair, R knee arthroscopy, bilateral total elbow replacements per pt, bilateral cataract removals, L inguinal hernia repair, cardiac caths x 2, EGD, colonoscopy, skin cancer removals. Past Anesthesia/Blood Transfusion Reactions: No Reported Reaction Date of Last Stent Placement:: January 2020. Past Psychological History: Anxiety, Depression Additional Psychological History / Comment(s): Pt resides with his spouse. He is independent. Smoking Status: Former smoker Past Alcohol Use History: None Reported Additional Past Alcohol Use History / Comment(s): Pt started smoking in 1960 and quit in 2004. Past Drug Use History: None Reported - Past Family History Brother(s) Family Medical History: Cancer Additional Family Medical History / Comment(s): ONE BROTHER HAD LUNG CA & ANOTHER HAD MELANOMA. Brother just recently last week. Mother Family Medical History: AICD/Pacemaker Father Family Medical History: No Reported History Sister(s) Family Medical History: No Reported History Medications and Allergies Home Medications Medication Instructions Recorded Confirmed Type Pantoprazole Sodium [Protonix] 40 mg PO HS 03/08/16 04/16/20 History Cholecalciferol [Vitamin D3 (25 1,000 unit PO HS 12/12/18 04/16/20 History Mcg = 1000 Iu)] Vit C/E/Zn/Coppr/Lutein/Zeaxan 1 cap PO BID 12/12/18 04/16/20 History [Preservision Areds 2 Softgel] calcium polycarbophiL [Fibercon] 625 mg PO HS 12/12/18 04/16/20 History LORazepam [Ativan] 0.5 mg PO BID 02/03/20 04/16/20 History Aspirin 81 mg PO DAILY #30 chew 02/05/20 04/16/20 Rx Carvedilol [Coreg] 12.5 mg PO BID 04/16/20 04/16/20 History Clopidogrel [Plavix] 75 mg PO DAILY 04/16/20 04/16/20 History Furosemide [Lasix] 20 mg PO DAILY@1200 04/16/20 04/16/20 History Pravastatin Sodium [Pravachol] 40 mg PO HS 04/16/20 04/16/20 History Allergies Allergy/AdvReac Type Severity Reaction Status Date / Time alprazolam [From Xanax] AdvReac Unknown Verified 04/16/20 13:28 Physical Examination Right lower extremity: No obvious open lesions or sores are visualized throughout the extremity, there is no significant areas of erythema or soft tissue swelling Tenderness with palpation noted to the proximal femur, internal and external rotation of the hip reproduces significant pain. He is unable to straight leg raise at this time Patient is nontender with palpation surrounding the knee, lower leg, foot or ankle Range of motion of the knee was not assessed, plantarflexion, dorsiflexion, EHL, FHL are intact Calf is soft, no tenderness with palpation Sensory exam to light touch throughout the extremity is intact, dorsalis pedis pulses 2+ Results - Labs Labs: Abnormal Lab Results - Last 24 Hours (Table) 04/16/20 04/16/20 04/17/20 Range/Units 12:48 12:48 06:00 WBC 12.7 H (3.8-10.6) k/uL Hgb 12.8 L (13.0-17.5) gm/dL Hct 38.1 L (39.0-53.0) % MCV 79.9 L (80.0-100.0) fL RDW 19.8 H (11.5-15.5) % Neutrophils # (Manual) 10.60 H (1.3-7.7) k/uL Metamyelocytes # (Man) 0.13 H (0) k/uL Myelocytes # (Manual) 0.25 H (0) k/uL Nucleated RBCs 1 H (0-0) /100 WBC Chloride 109 H (98-107) mmol/L BUN 39 H (9-20) mg/dL Creatinine 1.95 H (0.66-1.25) mg/dL Glucose 121 H (74-99) mg/dL Total Bilirubin 1.5 H (0.2-1.3) mg/dL Alkaline Phosphatase 155 H (38-126) U/L Urine Protein 1+ H (Negative) Urine Mucus Rare H (None) /hpf H & H 04/16/20 Range/Units 12:48 Hgb 12.8 L (13.0-17.5) gm/dL Hct 38.1 L (39.0-53.0) % Coagulation 04/16/20 Range/Units 12:48 INR 1.1 (<1.2) Result Diagrams: 04/16/20 12:48 04/16/20 12:48 - Diagnostic results Hip x-ray: report reviewed, image reviewed (X-rays were reviewed of the right hip, pelvis and right femur. Images do demonstrate a femoral neck fracture with displacement. No significant osteoarthritis changes noted of the right hip. No other acute osseous abnormalities are appreciated throughout the right hip and femur.) Assessment and Plan Assessment: Right femoral neck fracture Status post fall from standing Multiple medical comorbidities Plan: Dr. Granados I were both available today at bedside to discuss treatment options with the patient. We discussed the possibility of a hemiarthroplasty versus a total hip replacement. Taking in consideration the patient's general activity level and history of recent falls, we feel hemiarthroplasty would be the best option for this patient. Risks and benefits of the procedure were discussed the patient at bedside, patient is a good understanding and would like to proceed. Please see risk assessment for further detail. Patient was made nothing by mouth last night, continue current diet DVT prophylaxis, will plan to resume Plavix and aspirin 04/18/2020 Pain control, continue use of current medication Continue nonweightbearing, patient will be weight-bear as tolerated with walker after surgery Medical recommendations and clearance Plan for PT evaluation after surgery Patient will likely need subacute rehab, plan for inpatient stay through the [facility] with hopeful discharge in the next 2-3 days Further recommendations to follow Time with Patient: Less than 30
--- NOTE | 2020-04-17 10:35 | XR ---
EXAMINATION TYPE: XR femur RT DATE OF EXAM: 04/17/2020 CLINICAL HISTORY: Injury with pain. Fracture. TECHNIQUE: Two views of the right femur are obtained. COMPARISON: Right knee x-ray from February 15, 2020 FINDINGS: 2 images of the mid to distal femur performed as requested. Findings suboptimal as both are in oblique orientation. No acute displaced fracture clearly identified in visualized portion of the distal femur. Posterior vascular calcification is present. IMPRESSION: As above.
--- NOTE | 2020-04-17 10:36 | P.PN ---
Progress Note - Text Progress Note Date: 04/17/20 Orthopedic Surgery Risk Review Sergey Ward is a 80-year-old male presenting for evaluation of sudden onset right-sided hip pain, inability to ambulate after falling at a friend's house on the ice. It was my pleasure to have seen and examined Sergey Ward . In our visit today we have had a chance to go over subjective complaints, physical examination findings and treatments including the natural course history without intervention and various interventional options. His imaging demonstrates right femoral neck fracture complete and displaced closed. On physical exam, exquisite pain with logroll of right hip demonstrates pain with motion of right hip, which is NV intact at this time. I have explained to the patient that this fracture needs stabilization. Based on the patients imaging, physical exam, and the rapid progression and disabling na ture of her symptoms, at this time I recommend surgery in the form or a: Right hip hemiarthroplasty arthroplasty I discussed the risk and benefits of this procedure at length with Sergey Ward and his over the phone. Questions were invited and answered, and the patient wishes to proceed as outlined below. Currently, I am recommendin. Right hip hemiarthroplasty 2. Review of surgical risks and benefits as well as an educational packet on the proposed surgical procedure. Risks: All surgical procedures come with inherent risks, including those related to positioning, anesthesia, intraoperative findings, and postoperative complications. It is important to understand that surgery does not come with any guarantee of a successful outcome as complications and adverse events are always possible. The patient was given a handout discussing the surgical procedure and risks associated with the intervention, both of which were discussed with the patient. These risks include but are not limited to the following: - Experiencing same, different or even worse symptoms compared to before surgery. - Requiring further surgery or other forms of treatment presently or at some time in the future . - On an extreme but fortunately relatively rare basis severe complication such as blindness, stroke, heart attack, temporary and/or permanent nerve injury, paralysis, coma, or may occur, sometimes without known explanation. - Surgical complications may include but are not limited to risk of infection, fluid accumulation in the surgical dissection site, including a seroma or hematoma, that requires additional surgery, wound drainage, bleeding, new numbness or weakness, vision changes/loss, spinal fluid leakage, non-healing and/or infected incision, headaches, difficulty or inability to swallow, hoarseness, hemopneumothorax, pneumothorax, injury to nerves, spinal cord, blood vessels, lymphatics or other vital organs (i.e., bowel injury, injury to the great vessels); heterotopic bone formation; complications related to the llamas rdware such as screws, rods, including misplaced hardware, device failure, hardware fracture/breakage, or hardware loosening; retained surgical instrumentations or devices and the need for further surgery. - Medical risks of the planned surgery include but are not limited to generalized Infections to the whole body or local areas outside of the surgical site (sepsis), heart attack, bleeding, anaphylaxis, meningitis, seizure, epilepsy, hearing loss, burn ross, laceration of the head or other areas of the body, bruising, hypersensitivity of the skin, bladder over distension; allergic reaction; shoulder injury related to positioning; fat, blood and air clots to other areas of the body like heart, lungs, brain; failure of internal organs such as lungs, kidneys, liver and excessive bleeding. If blood transfusions are necessary, note that transfusions may cause intolerance reactions such as anaphylaxis or other complex reactions. Despite best efforts, the results of surgery might not heal in terms of bone, soft tissues such as skin, fascia, ligaments, and joints. [facility] is an educational center that serves as a training facility for physician assistants, nurses, orthopedic residents and fellows. Residents are physicians who are completing their surgical intensive training following medical school. They assist in the operating room with direct supervision of the attending surgeons. [place] are surgeons who have completed their training and eligible for board certification. They have opted for an elective year of more specialized training in their field. They assist in the operating room under the supervision of the attending surgeons. Physician assistants are medically trained surgical providers who function in the outpatient, inpatient, and operating room setting under the direct supervision of the attending surgeon. [facility] has multiple operating rooms with single and overlapping rooms running daily. They currently function under the required guidelines as produced by the Senate Finance Committee with regards to the overlapping rooms and will continue to comply with changes to this policy as they occur. The r equirements include and are complied with as follows: (1) the critical portions of the overlapping rooms will not occur at the same time, (2) the attending physician will be physically present during the critical portions of the procedure and immediately available during the entire case, and (3) a back-up attending is designated should the primary attending not be immediately available. The patient has had a chance to review all the listed information, has been given print outs detailing this information, and has had all his/her questions answered to their satisfaction. It was my pleasure to have seen and examined Sergey Ward. In our visit today we have had a chance to go over my understanding of our patient's current condition, the natural course history without intervention and various interventional options. Questions were invited and answered, and the patient wishes to proceed as outlined above. I have seen and examined the patient for 25 minutes and we have spent more than 50% of the time in repeat and detailed counseling about the patient's condition, its natural course history with out and as much as can be predicted with surgery and re-review of various surgical treatment options. In conclusion, Sergey Ward requested we proceed with the above suggested surgery and are willing to accept risks and limitations of the suggested surgery as nature of the disease process and our best attempts at treatment for the condition. Thank you again for allowing us to be part of your patient's care. Please don't hesitate to contact me if you have any further questions. Signed and authenticated by: Malik Soto [facility] [place] [address]
[2020-04-17 10:37] LABS: African American GFR (CKD) 34 (>60 ml/min/1.73 sqM); Anion Gap 4 mmol/L; Blood Urea Nitrogen 38 mg/dL (9-20); Calcium 8.6 mg/dL (8.4-10.2); Carbon Dioxide 29 mmol/L (22-30); Chloride 106 mmol/L (98-107); Glucose 117 mg/dL (74-99); Non-African American GFR(CKD) 29 (>60 ml/min/1.73 sqM); Potassium 4.7 mmol/L (3.5-5.1); Sodium 139 mmol/L (137-145)
--- NOTE | 2020-04-17 10:39 | P.CONS ---
History of Present Illness - Reason for Consult Consult date: 04/17/20 Medical clearance for surgery, COPD, coronary artery disease - History of Present Illness Sergey is a 80-year-old white male well-known to the practice and treats regularly my partner. He had fallen at home on ice on 04/16/2019 patient he landed on his right hip. He denied any head injuries. It is significant pain and trouble walking he came emergency room, was found to have a closed fracture of the femoral neck on the right side. He is admitted to orthopedic surgery. They're planning ORIF of the right hip soon. Sergey denies any chest pains, pressures, shortness of breath this time. He underwent a left heart catheterization and angioplasty with PTCA and stenting of the proximal left anterior descending coronary artery with drug-eluting stent on 02/04/2020. He has a history of hypertension, coronary disease, COPD, chronic renal failure, stones, and a possible non-ST elevated microinfarction in January as well. Emergency room labs show a CBC with leukocytosis with left shift and his hemoglobin is 12.8 with microcytosis. Blood chemistries show a GFR of 32. Her analysis was normal. Review of Systems All systems: negative Past Medical History Past Medical History: Cancer, Chest Pain / Angina, COPD, GERD/Reflux, Hearing Disorder / Deafness, Hyperlipidemia, Hypertension, Myocardial Infarction ([place]), Osteoarthritis (OA), Prostate Disorder, Pulmonary Embolus (PE) Additional Past Medical History / Comment(s): Interstitial lung disease, pulmonary fibrosis, PE in 2011-pt cannot recall laterality, past home O2 use but none now, RIANA-cannot tolerate Cpap, prostate cancer with radiation treatment, skin cancer with removals, nephrolithiasis, migraines, compression fracture low back, bilateral elbow fractures with surgery, PUD, jaundiced as a child, [place] bilaterally. "mild" [place] in january 2020. Last Myocardial Infarction Date:: January 2020 History of Any Multi-Drug Resistant Organisms: None Reported Past Surgical History: Appendectomy, Cholecystectomy, Heart Catheterization, Heart Catheterization With Stent, Hernia Repair, Joint Replacement, Orthopedic Surgery Additional Past Surgical History / Comment(s): Prostate biopsy, L hand partial amp of 2 fingers, L knee ACL repair, R knee arthroscopy, bilateral total elbow replacements per pt, bilateral cataract removals, L inguinal hernia repair, card iac caths x 2, EGD, colonoscopy, skin cancer removals. Past Anesthesia/Blood Transfusion Reactions: No Reported Reaction Date of Last Stent Placement:: January 2020. Past Psychological History: Anxiety, Depression Additional Psychological History / Comment(s): Pt resides with his spouse. He is independent. Smoking Status: Former smoker Past Alcohol Use History: None Reported Additional Past Alcohol Use History / Comment(s): Pt started smoking in 1960 and quit in 2004. Past Drug Use History: None Reported - Past Family History Brother(s) Family Medical History: Cancer Additional Family Medical History / Comment(s): ONE BROTHER HAD LUNG CA & ANOTHER HAD MELANOMA. Brother just recently last week. Mother Family Medical History: AICD/Pacemaker Father Family Medical History: No Reported History Sister(s) Family Medical History: No Reported History Medications and Allergies Home Medications Medication Instructions Recorded Confirmed Type Pantoprazole Sodium [Protonix] 40 mg PO HS 03/08/16 04/16/20 History Cholecalciferol [Vitamin D3 (25 1,000 unit PO HS 12/12/18 04/16/20 History Mcg = 1000 Iu)] Vit C/E/Zn/Coppr/Lutein/Zeaxan 1 cap PO BID 12/12/18 04/16/20 History [Preservision Areds 2 Softgel] calcium polycarbophiL [Fibercon] 625 mg PO HS 12/12/18 04/16/20 History LORazepam [Ativan] 0.5 mg PO BID 02/03/20 04/16/20 History Aspirin 81 mg PO DAILY #30 chew 02/05/20 04/16/20 Rx Carvedilol [Coreg] 12.5 mg PO BID 04/16/20 04/16/20 History Clopidogrel [Plavix] 75 mg PO DAILY 04/16/20 04/16/20 History Furosemide [Lasix] 20 mg PO DAILY@1200 04/16/20 04/16/20 History Pravastatin Sodium [Pravachol] 40 mg PO HS 04/16/20 04/16/20 History Allergies Allergy/AdvReac Type Severity Reaction Status Date / Time alprazolam [From Xanax] AdvReac Unknown Verified 04/16/20 13:28 Physical Exam Vitals: Vital Signs Temp Pulse Pulse Resp BP BP Pulse Ox 04/17/20 07:41 98.4 F 85 17 86/53 90 L 04/17/20 02:10 97.8 F 86 18 154/72 91 L 04/16/20 20:00 95 19 04/16/20 19:20 97.6 F 95 19 160/75 93 L 04/16/20 14:30 97.7 F 80 18 156/97 91 L 04/16/20 13:55 77 18 152/73 96 04/16/20 13:25 75 18 145/67 96 04/16/20 12:28 97.5 F L 83 16 163/72 91 L Intake and Output 04/16/20 04/17/20 04/17/20 22:59 06:59 14:59 Other: # Voids 3 GENERAL: Fatigued, well-nourished and in no acute distress. HEAD: Atraumatic, normocephalic. EYES: Pupils equal round and reactive to light, extraocular movements intact, sclera anicteric, conjunctiva are normal. ENT:nares patent, oropharynx clear without exudates. Moist mucous membranes. NECK: Normal range of motion, supple without lymphadenopathy or JVD, no thyromegaly LUNGS: Breath sounds slightly coarse to auscultation bilaterally and equal. No wheezes rales or rhonchi. HEART: Regular rate and rhythm without murmurs, rubs or gallops.S1S2 Normal ABDOMEN: Soft, nontender, normoactive bowel sounds. No guarding, no rebound. No masses appreciated. EXTREMITIES: Normal range of motion, no pitting or edema. No clubbing or cyanosis. NEUROLOGICAL: Cranial nerves II through XII grossly intact. Normal speech, normal gait. PSYCH: Normal mood, normal affect. SKIN: Warm, Dry, normal turgor, no rashes or lesions noted. Results CBC & Chem 7: 04/16/20 12:48 04/16/20 12:48 Labs: Abnormal Lab Results - Last 24 Hours (Table) 04/16/20 04/16/20 04/17/20 Range/Units 12:48 12:48 06:00 WBC 12.7 H (3.8-10.6) k/uL Hgb 12.8 L (13.0-17.5) gm/dL Hct 38.1 L (39.0-53.0) % MCV 79.9 L (80.0-100.0) fL RDW 19.8 H (11.5-15.5) % Neutrophils # (Manual) 10.60 H (1.3-7.7) k/uL Metamyelocytes # (Man) 0.13 H (0) k/uL Myelocytes # (Manual) 0.25 H (0) k/uL Nucleated RBCs 1 H (0-0) /100 WBC Chloride 109 H (98-107) mmol/L BUN 39 H (9-20) mg/dL Creatinine 1.95 H (0.66-1.25) mg/dL Glucose 121 H (74-99) mg/dL Total Bilirubin 1.5 H (0.2-1.3) mg/dL Alkaline Phosphatase 155 H (38-126) U/L Urine Protein 1+ H (Negative) Urine Mucus Rare H (None) /hpf Chest x-ray: report reviewed Assessment and Plan (1) Fracture of femoral neck, right, closed Current Visit: Yes Status: Acute Code(s): S72.001A - FRACTURE OF UNSP PART OF NECK OF RIGHT FEMUR, INIT SNOMED Code(s): 968758332 (2) H/O myocardial infarction, greater than 8 weeks Current Visit: Yes Status: Acute Code(s): I25.2 - OLD MYOCARDIAL INFARCTION SNOMED Code(s): 5697427 (3) Coronary artery disease Current Visit: Yes Status: Acute Code(s): I25.10 - ATHSCL HEART DISEASE OF [place] CORONARY ARTERY W/O ANG PCTRS SNOMED Code(s): 50823755 (4) H/O heart artery stent Current Visit: Yes Status: Acute Code(s): Z95.5 - PRESENCE OF CORONARY ANGIOPLASTY IMPLANT AND GRAFT SNOMED Code(s): 683695760 (5) Essential (primary) hypertension Current Visit: Yes Status: Acute Code(s): I10 - ESSENTIAL (PRIMARY) HYPERTENSION SNOMED Code(s): 73585736 (6) Leukocytosis Current Visit: Yes Status: Acute Code(s): D72.829 - ELEVATED WHITE BLOOD CELL COUNT, UNSPECIFIED SNOMED Code(s): 579064089 (7) CKD (chronic kidney disease), stage III Current Visit: Yes Status: Acute Code(s): N18.30 - CHRONIC KIDNEY DISEASE, STAGE 3 UNSPECIFIED SNOMED Code(s): 708788166 Plan: Medically, with this stage 3-4 chronic renal failure and coronary disease and recent [place], he is high risk for surgery. Being that as of August, he needs a surgical repair. We'll monitor his kidney functions repeat labs now. Last cardiology cleared him as well. Thank you very much for this consultation. I will reevaluate him in the next 24 hours.
[2020-04-17 11:02] LABS: Metamyelocytes % 1 %; Myelocytes % 1 %; Neutrophils % (M) 87 %; Nucleated Red Blood Cells 0 /100 WBC (0-0); Total Cells Counted 200
[2020-04-17 11:03] LABS: Poikilocytosis (M) Present
[2020-04-17] MEDS: FUROSEMIDE 20 MG TAB PO SCH (11:24)
[2020-04-17] MEDS ORDERED: GENTAMICIN 80 MG in SODIUM CHLORIDE 0.9% 100 ML IVPB ONE (11:30)
--- NOTE | 2020-04-17 12:08 | P.CRDCN ---
History of Present Illness History of present illness: This is Dr. Apple dictating a consult on this patient The patient was interviewed and examined IMPRESSION / ASSESSMENT: History of a fall secondary to slipping on ice, femoral neck fracture right- sided CAD, preserved LV systolic function ejection fraction 50% with distal septal hypok inesis History of myocardial infarction status post stenting to the LAD on 02 of February, on dual antiplatelet therapy and statins Patient is completely a sympathetic from a cardiac standpoint and in the last few weeks, after I saw him in the office, he has had no cardiac symptoms PLAN: Hold Plavix and proceed with hip surgery, right hip hemiarthroplasty Continue baby aspirin Continue statins line continue Coreg, hold only for blood pressure less than 100 mmHg HPI Patient slipped and fell on the ice and broke the right femoral neck He is awaiting hip surgery There was no syncope or chest discomfort shortness of breath or any other cardiac symptoms immediately preceding this event or in the last week or 2 He is been stable from a cardiovascular standpoint without any angina ROS: No fever chills or rigors, no cough, phlegm or expectoration, no nausea, vomiting or diarrhea, no hematuria, dysuria, no musculoskeletal complaints, no strokes or seizures, no skin lesions. EXAMINATION: Afebrile 98.4F pulse rate in the 80s blood pressure 102/56. His mercury 151/72 mmHg Breath sounds are clear no rhonchi no crackles Normal heart sounds normal S1 normal S2, no murmurs no gallop or rub Abdomen soft No JVD REVIEW OF LABS, ECG & MEDICAL DATA White count 10,000, hemoglobin 11.8, platelet count 260,000 Sodium 139, potassium 4.7, BUN 38 and creatinine 2.0 Twelve-lead ECG shows sinus rhythm normal MS narrow pelvis and normal ST segments Past Medical History Past Medical History: Cancer, Chest Pain / Angina, COPD, GERD/Reflux, Hearing Disorder / Deafness, Hyperlipidemia, Hypertension, Myocardial Infarction (HI), Osteoarthritis (OA), Prostate Disorder, Pulmonary Embolus (PE) Additional Past Medical History / Comment(s): Interstitial lung disease, pulmonary fibrosis, PE in 2011-pt cannot recall laterality, past home O2 use but none now, RIANA-cannot tolerate Cpap, prostate cancer with radiation treatment, skin cancer with removals, nephrolithiasis, migraines, compression fracture low back, bilateral elbow fractures with surgery, PUD, jaundiced as a child, [place] bilaterally. "mild" HI in january 2020. Last Myocardial Infarction Date:: January 2020 History of Any Multi-Drug Resistant Organisms: None Reported Past Surgical History: Appendectomy, Cholecystectomy, Heart Catheterization, Heart Catheterization With Stent, Hernia Repair, Joint Replacement, Orthopedic Surgery Additional Past Surgical History / Comment(s): Prostate biopsy, L hand partial amp of 2 fingers, L knee ACL repair, R knee arthroscopy, bilateral total elbow replacements per pt, bilateral cataract removals, L inguinal hernia repair, cardiac caths x 2, EGD, colonoscopy, skin cancer removals. Past Anesthesia/Blood Transfusion Reactions: No Reported Reaction Date of Last Stent Placement:: January 2020. Past Psychological History: Anxiety, Depression Additional Psychological History / Comment(s): Pt resides with his spouse. He is independent. Smoking Status: Former smoker Past Alcohol Use History: None Reported Additional Past Alcohol Use History / Comment(s): Pt started smoking in 1960 and quit in 2004. Past Drug Use History: None Reported - Past Family History Brother(s) Family Medical History: Cancer Additional Family Medical History / Comment(s): ONE BROTHER HAD LUNG CA & ANOTHER HAD MELANOMA. Brother just recently last week. Mother Family Medical History: AICD/Pacemaker Father Family Medical History: No Reported History Sister(s) Family Medical History: No Reported History Medications and Allergies Home Medications Medication Instructions Recorded Confirmed Type RX: Pantoprazole Sodium [Protonix] 40 mg PO HS 03/08/16 04/16/20 History RX: Cholecalciferol [Vitamin D3 1,000 unit PO HS 12/12/18 04/16/20 History (25 Mcg = 1000 Iu)] RX: Vit C/E/Zn/Coppr/Lutein/Zeaxan 1 cap PO BID 12/12/18 04/16/20 History [Preservision Areds 2 Softgel] RX: calcium polycarbophiL 625 mg PO HS 12/12/18 04/16/20 History [Fibercon] RX: LORazepam [Ativan] 0.5 mg PO BID 02/03/20 04/16/20 History RX: Aspirin 81 mg PO DAILY #30 chew 02/05/20 04/16/20 Rx Carvedilol [Coreg] 12.5 mg PO BID 04/16/20 04/16/20 History Clopidogrel [Plavix] 75 mg PO DAILY 04/16/20 04/16/20 History Furosemide [Lasix] 20 mg PO DAILY@1200 04/16/20 04/16/20 History RX: Pravastatin Sodium [Pravachol] 40 mg PO HS 04/16/20 04/16/20 History Allergies Allergy/AdvReac Type Severity Reaction Status Date / Time alprazolam [From Xanax] AdvReac Unknown Verified 04/16/20 13:28 Physical Exam Vitals: Vital Signs Temp Pulse Pulse Resp BP BP Pulse Ox 04/17/20 07:45 102/56 04/17/20 07:41 98.4 F 85 17 86/53 90 L 04/17/20 02:10 97.8 F 86 18 154/72 91 L 04/16/20 20:00 95 19 04/16/20 19:20 97.6 F 95 19 160/75 93 L 04/16/20 14:30 97.7 F 80 18 156/97 91 L 04/16/20 13:55 77 18 152/73 96 04/16/20 13:25 75 18 145/67 96 04/16/20 12:28 97.5 F L 83 16 163/72 91 L Intake and Output 04/16/20 04/17/20 04/17/20 22:59 06:59 14:59 Other: # Voids 3 Results 04/17/20 09:43 04/17/20 09:43 Cardiac Enzymes 04/16/20 Range/Units 12:48 AST 39 (17-59) U/L Coagulation 04/16/20 Range/Units 12:48 PT 11.4 (9.0-12.0) sec APTT 24.5 (22.0-30.0) sec CBC 04/16/20 04/17/20 Range/Units 12:48 09:43 WBC 12.7 H 10.0 (3.8-10.6) k/uL RBC 4.77 4.19 L (4.30-5.90) m/uL Hgb 12.8 L 11.8 L (13.0-17.5) gm/dL Hct 38.1 L 33.8 L (39.0-53.0) % Plt Count 343 268 (150-450) k/uL Comprehensive Metabolic Panel 04/16/20 04/17/20 Range/Units 12:48 09:43 Sodium 142 139 (137-145) mmol/L Potassium 4.7 4.7 (3.5-5.1) mmol/L Chloride 109 H 106 (98-107) mmol/L Carbon Dioxide 26 29 (22-30) mmol/L BUN 39 H 38 H (9-20) mg/dL Creatinine 1.95 H 2.08 H (0.66-1.25) mg/dL Glucose 121 H 117 H (74-99) mg/dL Calcium 9.3 8.6 (8.4-10.2) mg/dL AST 39 (17-59) U/L ALT 31 (4-49) U/L Alkaline Phosphatase 155 H (38-126) U/L Total Protein 7.2 (6.3-8.2) g/dL Albumin 4.4 (3.5-5.0) g/dL Current Medications Generic Name Dose Route Start Last Admin Trade Name Freq PRN Reason Stop Dose Admin Acetaminophen 650 mg 04/16/20 13:31 04/17/20 04:35 Acetaminophen Tab 325 Mg Tab PO 650 mg Q6HR PRN Administration Mild Pain or Fever > 100.5 Carvedilol 12.5 mg 04/16/20 17:30 04/17/20 07:45 Carvedilol 12.5 Mg Tab PO 12.5 mg BID-W/MEALS JOSE MANUEL Administration Cyclobenzaprine HCl 10 mg 04/16/20 18:51 04/17/20 06:04 Cyclobenzaprine 10 Mg Tab PO 10 mg BID PRN Administration Muscle Spasm Furosemide 20 mg 04/17/20 12:00 04/17/20 11:24 Furosemide 20 Mg Tab PO Not Given DAILY@1200 JOSE MANUEL Hydromorphone HCl 0.5 mg 04/16/20 13:31 04/16/20 21:14 Hydromorphone 0.5 Mg/0.5 Ml Syringe IVP 0.5 mg Q3HR PRN Administration Moderate Pain Hydromorphone HCl 1 mg 04/16/20 13:31 04/17/20 10:26 Hydromorphone 1 Mg/Ml 1 Ml Syringe IVP 1 mg Q3HR PRN Administration Severe Pain Gentamicin Sulfate 80 mg/ 102 mls @ 100 mls/hr 04/17/20 11:30 Sodium Chloride IVPB 04/17/20 12:31 ONCE ONE Tranexamic Acid 1,000 mg/ 110 mls @ 200 mls/hr 04/17/20 12:00 Sodium Chloride IVPB 04/17/20 12:32 ONCE ONE Protocol Sodium Chloride 1,000 mls @ 85 mls/hr 04/17/20 11:00 Saline 0.9% IV .[id number] JOSE MANUEL Lorazepam 0.5 mg 04/16/20 17:54 04/17/20 07:45 Lorazepam 0.5 Mg Tab PO 0.5 mg BID PRN Administration Anxiety Naloxone HCl 0.2 mg 04/16/20 13:31 Naloxone 0.4 Mg/Ml 1 Ml Vial IV Q2M PRN Opioid Reversal Ondansetron HCl 4 mg 04/16/20 13:31 Ondansetron 4 Mg/2 Ml Vial IVP Q8HR PRN Nausea And Vomiting Pantoprazole Sodium 40 mg 04/16/20 21:00 04/16/20 20:22 Pantoprazole 40 Mg Tablet PO 40 mg HS JOSE MANUEL Administration Pravastatin Sodium 40 mg 04/16/20 21:00 04/16/20 20:22 Pravastatin Sodium 40 Mg Tab PO 40 mg HS JOSE MANUEL Administration Intake and Output 04/16/20 04/17/20 04/17/20 22:59 06:59 14:59 Other: # Voids 3 04/17/20 09:43 04/17/20 09:43
[2020-04-17] MEDS ORDERED: NEOSTIGMINE 1 MG/ML 10 ML VIAL ONE (12:32)
[2020-04-17] MEDS ORDERED: fentaNYL (PF) 50 MCG/ML 2 ML AMP ONE (12:32)
[2020-04-17] MEDS ORDERED: SODIUM CHLORIDE 0.9% 1,000 ML IV ONE (12:32)
[2020-04-17] MEDS ORDERED: ONDANSETRON 4 MG/2 ML VIAL ONE (12:32)
[2020-04-17] MEDS ORDERED: PHENYLEPHRINE 10 MG/ML VIAL ONE (12:32)
[2020-04-17] MEDS ORDERED: LIDOCAINE 1% INJ 10MG/ML (20 ML MDV) ONE (12:32)
[2020-04-17] MEDS ORDERED: GLYCOPYRROLATE 0.2 MG/ML 2 ML VIAL ONE (12:32)
[2020-04-17] MEDS ORDERED: DEXAMETHASONE SOD PHOSPHATE 10 MG/ML 1 ML VIAL ONE (12:32)
[2020-04-17] MEDS ORDERED: ROCURONIUM 10 MG/ML (10 ML VIAL) IV ONE (12:32)
[2020-04-17] MEDS ORDERED: SUCCINYLCHOLINE CHLORIDE 100 MG/5 ML SYR IV ONE (12:32)
[2020-04-17] MEDS ORDERED: PROPOFOL 10 MG/ML 20 ML VIAL IV ONE (12:32)
[2020-04-17] MEDS ORDERED: ceFAZolin 1,000 MG VIAL IVPB ONE (12:40)
[2020-04-17] MEDS ORDERED: GENTAMICIN 40 MG/ML 2 ML VIAL IVPB ONE (13:00)
[2020-04-17] MEDS ORDERED: ceFAZolin 3,000 MG in SODIUM CHLORIDE 0.9% IRRIGATIO 3,000 ML IRRIGATION ONE (13:14)
[2020-04-17] MEDS ORDERED: LACTATED RINGERS 1,000 ML IV ONE (13:58)
[2020-04-17] MEDS ORDERED: HYDROmorphone 0.5 MG/0.5 ML SYRINGE IVP PRN (14:41)
[2020-04-17] MEDS ORDERED: HYDROcodone/APAP 5-325MG 1 EACH TAB PO PRN (14:41)
[2020-04-17] MEDS ORDERED: NALOXONE 0.4 MG/ML 1 ML VIAL IV PRN (14:41)
[2020-04-17] MEDS: HYDROmorphone 1 MG/ML 1 ML SYRINGE IVP ONE ×2 (15:05→15:16)
--- NOTE | 2020-04-17 15:13 | P.OP ---
Date of Procedure: 04/17/20 Preoperative Diagnosis: 1. R hip femoral neck fracture, complete, displaced, closed 2. S/P FFS 3. Complex medical patient Postoperative Diagnosis: 1. R hip femoral neck fracture, complete, displaced, closed 2. S/P FFS 3. Complex medical patient Procedure(s) Performed: RIGHT hip hemiarthroplasty Implants: Corail Hip system 13 x 135 stem standard neck +5 54 mm bipolar head Anesthesia: GETA Surgeon: Malik Granados Data Abstractor #1: Gustavo Mills (NATHAN Bloom was present for the entire case and was necessary due the complexity of the case) Estimated Blood Loss (ml): 200 IV fluids (ml): 1,100 Urine output (ml): 70 Pathology: none sent Condition: stable Disposition: PACU Indications for Procedure: Patient is a 80-year-old male who presented to [facility] yesterday afternoon after falling on ice. Patient was alert his friend's house when he slipped and fell directly onto the right lower extremity. He denied hitting his head during the fall. He was unable to weight-bear after the injury he was brought to [facility] for further evaluation. Upon arrival to the emergency room, imaging test were taken which demonstrated a right femoral neck fracture. I was contacted by the emergency room staff, I was able to review the images with my attending Dr. Granados, patient was then admitted to the hospital under our orthopedic care with plan for likely surgical intervention. Consults were placed to internal medicine for medical clearance. Patient was examined today at bedside by myself and Dr. Granados. Patient n otes most of the discomfort of the right upper leg, anytime he moves the leg. He denies any right knee pain, right lower leg, foot or ankle pain. He is having no discomfort of the left lower extremity. He has no pain involving the bilateral upper extremities. He denies any new onset cervical, thoracic or lumbar pain. Patient admits to frequent falls over the last few years. Patient states that he is not very active, he used to enjoy hunting but does not do that much anymore. He has history of bilateral elbow fractures that resulted in replacement of both elbows. Pertinent past medical history, he does have a history of 2 recent stents that were put in January 2020. He also has a history of prostate cancer which he is followed by the urology group and oncology group in [place]. Currently patient denies any headaches, lightheadedness, chest pain, shortness of breath, nausea vomiting, fever or chills. Operative Findings: Comminuted, compete and displaced femoral neck fracture of the RIGHT hip Description of Procedure: The patient was seen and examined in the preoperative area. All preoperative protocols were followed. Informed consent was obtained risks and benefits of the procedure were discussed at length. Risks including bleeding infection damage to the surrounding tissue and risk of reoperation were discussed with the patient. Risk of anesthesia up to and including was a discussed with the patient. These are outlined in the risk reviewed. They were willing to accept these risks and all of the risks of surgery. The patient was given a weight- based dose of antibiotics in the form of 2 g Ancef IVPB 1 and 80 mg of gentamicin IVPB times 1 30 minutes prior to incision. The patient was seen and evaluated by the anesthesia team who deemed them fit for surgery. The site was marked, the patient was willing to proceed with the procedure. The patient was transferred to the operative suite by the Department of anesthesia. There were then drifted off to sleep by the department of anesthesia and general endotracheal intubation anesthesia was used. Once adequate anesthesia had been obtained the patient was carefully transferred to the operative bed. Patient was placed in the left lateral decubitus position with special attention paid to the peroneal nerves and ankle padding. As well as padding in between the legs. Axillary roll was placed. All bony prominences were padded accordingly. SCDs were placed on the nonoperative lower extremities. Arms were well padded. Right leg was exposed 1010s were placed around the operative field. Skin marker was used to bio marked the patient. Preoperative briefing was done with the operative team and everyone was ready for the procedure to start. The patients right leg was then prepped and draped in the normal sterile fashion. Timeout was then performed and all parties in agreement with the procedure to be performed. Skin incision was made over the previously bio marked incision line over the greater trochanter of the right hip. Subcu cutaneous dissection was then performed with electrocautery until the IT fascia was exposed. IT fascia was then cleaned with a lap sponge and exposed. It was then incised in line with its fibers in line with the incision. The muscle fibers were split proximally and bluntly. The Charnley retractor was then placed deep to this to allow for visualization. Bursectomy was performed over the greater trochanter to visualize the short external rotators of the right hip. A [place] was placed to protect the gluteus medius tendon and the piriformis tendon and the short external rotators were identified. Subperiosteal dissection was performed to remove the short external rotators as well as the piriformis tendon to allow protection of the sciatic nerve. Performs tendon and capsule were then tagged with an Ethibond tag stitch. Capsular dissection was then taken down along the neck of the femur and internal rotation allowed good result was a ambrocio. This was taken up to the labrum but did not involve the labrum. There is a comminuted femoral neck fracture which was encountered. A template was used to manuel a cleanup neck cut and this was performed with the reciprocating saw. Once this was performed with Homans in place the femur was pulled out of the way with a bone hook and a Hohmann placed. A corkscrew was then used to access the femoral head which was then removed with a T-handle. The acetabulum was inspected there was good cartilage as well as good labral tissue in this area. Fragments of the fracture were removed from inside the acetabulum. The stem was then washed with sterile saline. The femur was then internally rotated and abducted to allow for visualization of the femoral shaft. Excess capsule was cleaned from the shoulder and a box osteotome was used to access and lateralize the canal. Canal finder was then used followed by a rattail rasp and the initial chili proper rasp. This allowed for good lateralization as well as access to the canal. Sequential broaching then was undertaken until a [address] This had a good fit and was rotationally stable. A standard neck was then chosen and placed along with a 54 mm bipolar head which was placed on the trial. The hip was then sequentially reduced atraumatically. Hip was taken through a range of motion and was relatively stable at this time however leg lengths seem slightly shortened and so the hip was dislocated atraumatically and a +5 head was placed on the bipolar head this was then atraumatically again sequentially reduced and trialed. The hip was taken through a range of motion and was stable and leg lengths were more stable. AP x-ray of the right hip with trials in place was then taken with fluoroscopy which confirmed good placement of the broach good fit and fill as well as leg lengths. Hip was then again sequentially dislocated the trial neck and head were removed the broach handle was replaced and the trial femoral component was stable. This was then removed the canal and acetabulum were copiously irrigated with normal sterile saline. The final femoral component was then placed and impacted into place. It did sit up about 1 mm however was in good position and was stable. Final head components were then placed and impacted into place and confirmed to be stable. The hip was then again sequentially reduced atraumatically and taken through range of motion and deemed stable. Leg lengths were again checked and were stable. The wound was then copiously irrigated first with a Betadine solution followed by a normal sterile saline solution. Capsular repair was performed with the previously Ethibond marked piriformis and short external rotators and capsule by drilling 2 holes in the greater trochanter posteriorly a suture passer was then used to pass the Ethibond sutures through here and these were tied and a place. These were then oversewn with Ethibond stitch in a simple flat in a [id number] fashion. Once the capsule was closed Charnley retractor is removed the wound was again irrigated with normal sterile saline and the tensor fascia was closed with #1 Vicryl in a running locking fashion. The wound was again irrigated over Vicryl was used in subcu continuous tissue followed by 2-0 Vicryl followed by 30 sterile fix Monocryl and the subcuticular region. Jose were placed in tenuous areas to decrease skin tension and then this was covered with exiting glue after being sterilely washed. It was then sterilely dressed with an operative foam dressing. The patient was then transferred back to their hospital bed. There were awakened by department of anesthesia having tolerated the procedure very well with no complications. Leg lengths were again checked and were stable in the supine position. The patient was then transported to the postoperative care unit in stable condition. Postop x-rays are pending currently
--- NOTE | 2020-04-17 15:27 | XR ---
EXAMINATION TYPE: XR Hip RT and AP Pelvis DATE OF EXAM: 04/17/2020 COMPARISON: NONE HISTORY: Postop hip surgery TECHNIQUE: 3 views FINDINGS: There is a right hip prosthesis. Components are in anatomic position. IMPRESSION: No complicating process seen.
[2020-04-17] MEDS: SODIUM CHLORIDE 0.9% 1,000 ML IV SCH (16:50)
[2020-04-17 17:37] LABS: Hemoglobin A1C 4.8 % (4.0-6.0)
[2020-04-17] MEDS: HYDROcodone/APAP 5-325MG 1 EACH TAB PO PRN (19:10)
[2020-04-17] MEDS: PANTOPRAZOLE 40 MG TABLET PO SCH (20:24)
[2020-04-17] MEDS: PRAVASTATIN SODIUM 40 MG TAB PO SCH (20:24)
[2020-04-17] MEDS: SENNOSIDES-DOCUSATE SODIUM 1 EACH TAB PO SCH (20:24)
[2020-04-18] MEDS: HYDROmorphone 1 MG/ML 1 ML SYRINGE IVP PRN ×4 (01:53→17:43)
[2020-04-18] MEDS: SODIUM CHLORIDE 0.9% 1,000 ML IV SCH ×3 (03:44→21:19)
[2020-04-18 06:30] LABS: Anisocytosis Moderate; HGB 10.1 gm/dL (13.0-17.5); Hypochromasia Slight; MCH 26.5 pg (25.0-35.0); MCHC 32.6 g/dL (31.0-37.0); MCV 81.2 fL (80.0-100.0); Mean Platelet Volume 10.6; Microcytosis Slight; Platelet Count 280 k/uL (150-450); Poikilocytosis Moderate; RBC 3.82 m/uL (4.30-5.90)
--- NOTE | 2020-04-18 06:50 | FL ---
EXAMINATION TYPE: FL guidance operating room, XR Hip Limited RT DATE OF EXAM: 04/17/2020 CLINICAL HISTORY: Right hip fracture. TECHNIQUE: Fluoroscopy. Intraoperative limited views right hip. COMPARISON: Pelvic and right hip x-ray from one day earlier. FINDINGS: Fluoroscopic guidance was provided during right hip replacement procedure performed by Dr. Granados. A total of 12 seconds of fluoroscopic time was utilized during the procedure and 1 spot intraoperative image is saved to PACS. Single image saved shows beginning placement of metallic hardware from total hip replacement surgery. IMPRESSION: As Above.
[2020-04-18 07:05] LABS: Band Neutrophils % 1 %; Myelocytes % 3 %; Neutrophils % (M) 88 %; Nucleated Red Blood Cells 3 /100 WBC (0-0); Total Cells Counted 200
[2020-04-18 07:06] LABS: Eosinophils # (M) 0.24 k/uL (0-0.7); Lymphocytes # (M) 0.36 k/uL (1.0-4.8); Monocytes # (M) 0.36 k/uL (0-1.0); Myelocytes # (M) 0.36 k/uL (0); WBC 12.1 k/uL (3.8-10.6)
[2020-04-18 07:09] LABS: Polychromasia Present
[2020-04-18 07:12] LABS: Large Platelets Present
[2020-04-18] MEDS: CYCLOBENZAPRINE 10 MG TAB PO PRN ×2 (07:22→17:48)
[2020-04-18] MEDS: LORazepam 0.5 MG TAB PO PRN ×2 (07:23→17:48)
[2020-04-18] MEDS: FUROSEMIDE 20 MG TAB PO SCH (07:23)
[2020-04-18] MEDS: CLOPIDOGREL 75 MG TAB PO SCH (07:23)
[2020-04-18] MEDS: carvediloL 12.5 MG TAB PO SCH ×2 (07:23→17:40)
[2020-04-18] MEDS: FAMOTIDINE 20 MG TAB PO SCH (07:23)
[2020-04-18] MEDS: ASPIRIN 81 MG PO SCH (07:23)
[2020-04-18] MEDS: HYDROcodone/APAP 5-325MG 1 EACH TAB PO PRN (07:25)
[2020-04-18 10:21] LABS: % Iron Saturation 10.78 (15.00-50.00); Magnesium 1.8 mg/dL (1.5-2.4)
--- NOTE | 2020-04-18 12:11 | P.PN ---
Subjective Progress Note Date: 04/18/20 Principal diagnosis: Status post right hip hemiarthroplasty Patient evaluated at bedside today, Dr. Granados was also available. He is resting in bed. Per nursing, he did have a lot of confusion yesterday evening after returning to the floor from surgery. This has improved into this morning. He is requesting IV pain medication. He is also taking oral pain medication. He is requiring O2 via nasal cannula, they have trended down to 3 L, his sats remained slightly low. Hemoglobin was noted to drop a little bit after surgery. Patient was examined at bedside, he is resting comfortably. He does have some general achiness in the proximal thigh on the right side. He has been utilizing his cane to help flex the knee. He has been doing ankle pumps often he states. Currently he denies any headaches, lightheadedness, chest pain, shortness of breath, nausea vomiting, fever or chills. Objective - Vital Signs Vital signs: Vital Signs Temp 98.6 F 04/18/20 08:21 Pulse 109 H 04/18/20 08:21 Resp 18 04/18/20 08:21 BP 139/95 04/18/20 08:21 Pulse Ox 92 L 04/18/20 08:21 Intake & Output 04/17/20 04/18/20 04/18/20 18:59 06:59 18:59 Intake Total 1251.5 Output Total 670 500 300 Balance 581.5 -500 -300 Intake: IV 1251.5 Output: Urine 470 500 300 Estimated Blood Loss 200 Other: Voiding Method Indwelling Catheter Indwelling Catheter - Exam Right lower extremity: Optifoam dressing is in good position and condition. There is minimal soft tissue swelling and ecchymosis surrounding the medial and lateral aspects of the incision. Calf is soft, no tenderness with palpation. Plantar flexion, dors iflexion, EHL, FHL are intact. Sensory exam to light touch throughout the extremity is intact, dorsal pedis pulses 2+. - Labs CBC & Chem 7: 04/18/20 06:00 04/17/20 09:43 Labs: Abnormal Lab Results - Last 24 Hours (Table) 04/18/20 04/18/20 Range/Units 06:00 06:00 WBC 12.1 H (3.8-10.6) k/uL RBC 3.82 L (4.30-5.90) m/uL Hgb 10.1 L (13.0-17.5) gm/dL Hct 31.0 L (39.0-53.0) % RDW 20.0 H (11.5-15.5) % Neutrophils # (Manual) 10.70 H (1.3-7.7) k/uL Lymphocytes # (Manual) 0.36 L (1.0-4.8) k/uL Myelocytes # (Manual) 0.36 H (0) k/uL Nucleated RBCs 3 H (0-0) /100 WBC Iron 25 L (65-175) ug/dL % Saturation 10.78 L (15.00-50.00) Microbiology - Last 24 Hours (Table) 04/17/20 10:31 Nasal Screen MRSA/MSSA - Preliminary Nasal Swab Assessment and Plan Assessment: Status post right hip hemiarthroplasty Acute blood loss anemia, expected surgical outcome Plan: Pain control, I did adjust the oral Mooers to 7.5 mg/325 mg. Explained to patient he needs to avoid IV narcotics as best as he can. Continue use of oral Tylenol also DVT prophylaxis, continue subcu medication We'll monitor hemoglobin, recheck CBC 04/19/2020 Patient needs to attempt to get out of bed today benefits owing to the chair. Recommend physical therapy evaluation, utilize walker at all times Posterior hip precautions were discussed with patient at bedside Attempt to remove Doran catheter later this afternoon Internal medicine and cardiac recommendations Anticipated discharge to rehab in the next few days Time with Patient: Less than 30
--- NOTE | 2020-04-18 13:11 | P.PN ---
Francisco Rincon is a 80-year-old white male well-known to the practice and treats regularly my partner. He had fallen at home on ice on 04/16/2019 patient he landed on his right hip. He denied any head injuries. It is significant pain and trouble walking he came emergency room, was found to have a closed fracture of the femoral neck on the right side. He is admitted to orthopedic surgery. They're planning ORIF of the right hip soon. Sergey denies any chest pains, pressures, shortness of breath this time. He underwent a left heart catheterization and angioplasty with PTCA and stenting of the proximal left anterior descending coronary artery with drug-eluting stent on 02/04/2020. He has a history of hypertension, coronary disease, COPD, chronic renal failure, stones, and a possible non-ST elevated microinfarction in January as well. Emergency room labs show a CBC with leukocytosis with left shift and his hemoglobin is 12.8 with microcytosis. Blood chemistries show a GFR of 32. Her analysis was normal. 04/18/2020: Patient is status post right hip hemiarthroplasty for a right hip femoral neck fracture closed, displaced, complete. Cardiology had seen him and cleared him with his history of recent myocardial infarction and stenting. They had his Plavix held and recommended continuing his baby aspirin. Postoperatively he was slightly hypoxic and his oxygen needs were up to 8 L/m via nasal cannula. Currently they're at 4 L/m with a pulse oximetry 92%. Blood pressures remained slightly elevated but stable. Heart rate has remained stable and respiratory rate normal. He is afebrile. White count remained slightly elevated and his hemoglobin is dropped from 12.8-10.1, she is expected postoperatively. He remains microcytic. Iron studies are consistent with iron deficiency anemia. Kidney functions a worsened with GFR dropping from 32-29 at this time. A hemoglobin A1c to evaluate his elevated glucoses 4.8, which is normal. He denies any chest pains pressures. He does complain of some shortness of breath. He is in good spirits. He is not moving very much this time, per nursing staff. PT/OT will see him tomorrow. Orthopedics are discussed home care with his . He and I briefly discussed the ECF should he not recover adequately to go home. Objective - Vital Signs Vital signs: Vital Signs Temp 98.6 F 04/18/20 08:21 Pulse 109 H 04/18/20 08:21 Resp 18 04/18/20 08:21 BP 139/95 04/18/20 08:21 Pulse Ox 92 L 04/18/20 08:21 Intake & Output 04/17/20 04/18/20 04/18/20 18:59 06:59 18:59 Intake Total 1251.5 Output Total 670 500 300 Balance 581.5 -500 -300 Intake: IV 1251.5 Output: Urine 470 500 300 Estimated Blood Loss 200 Other: Voiding Method Indwelling Catheter Indwelling Catheter - Exam GENERAL: Awake and alert, wearing oxygen via nasal cannula currently at 4 L/m. well-nourished and in no acute distress. NECK: Normal range of motion, supple without lymphadenopathy or JVD, no thyromegaly LUNGS: Breath sounds slightly coarse to auscultation bilaterally and equal. No wheezes rales or rhonchi. HEART: Regular rate and rhythm without murmurs, rubs or gallops.S1S2 Normal ABDOMEN: Soft, nontender, normoactive bowel sounds. No guarding, no rebound. No masses appreciated. EXTREMITIES: Normal range of motion, no pitting or edema. No clubbing or cyanosis. He is using a cane to move his right leg and bend his knee. NEUROLOGICAL: Cranial nerves II through XII grossly intact. Normal speech, normal gait. PSYCH: Normal mood, normal affect. SKIN: Warm, Dry, normal turgor, no rashes or lesions noted. - Labs CBC & Chem 7: 04/18/20 06:00 04/17/20 09:43 Labs: Abnormal Lab Results - Last 24 Hours (Table) 04/18/20 04/18/20 Range/Units 06:00 06:00 WBC 12.1 H (3.8-10.6) k/uL RBC 3.82 L (4.30-5.90) m/uL Hgb 10.1 L (13.0-17.5) gm/dL Hct 31.0 L (39.0-53.0) % RDW 20.0 H (11.5-15.5) % Neutrophils # (Manual) 10.70 H (1.3-7.7) k/uL Lymphocytes # (Manual) 0.36 L (1.0-4.8) k/uL Myelocytes # (Manual) 0.36 H (0) k/uL Nucleated RBCs 3 H (0-0) /100 WBC Iron 25 L (65-175) ug/dL % Saturation 10.78 L (15.00-50.00) Microbiology - Last 24 Hours (Table) 04/17/20 10:31 Nasal Screen MRSA/MSSA - Preliminary Nasal Swab Assessment and Plan (1) S/P hip hemiarthroplasty Narrative/Plan: RIGHT Current Visit: Yes Status: Acute Code(s): Z96.649 - PRESENCE OF UNSPECIFIED ARTIFICIAL HIP JOINT SNOMED Code(s): 049631844 (2) Fracture of femoral neck, right, closed Current Visit: Yes Status: Acute Code(s): S72.001A - FRACTURE OF UNSP PART OF NECK OF RIGHT FEMUR, INIT SNOMED Code(s): 412617747 (3) H/O myocardial infarction, greater than 8 weeks Current Visit: Yes Status: Acute Code(s): I25.2 - OLD MYOCARDIAL INFARCTION SNOMED Code(s): 3552898 (4) Coronary artery disease Current Visit: Yes Status: Acute Code(s): I25.10 - ATHSCL HEART DISEASE OF [place] CORONARY ARTERY W/O ANG PCTRS SNOMED Code(s): 01973888 (5) H/O heart artery stent Current Visit: Yes Status: Acute Code(s): Z95.5 - PRESENCE OF CORONARY ANGIOPLASTY IMPLANT AND GRAFT SNOMED Code(s): 621907373 (6) Essential (primary) hypertension Current Visit: Yes Status: Acute Code(s): I10 - ESSENTIAL (PRIMARY) HYPERTENSION SNOMED Code(s): 85614425 (7) Leukocytosis Current Visit: Yes Status: Acute Code(s): D72.829 - ELEVATED WHITE BLOOD CELL COUNT, UNSPECIFIED SNOMED Code(s): 606315275 (8) CKD (chronic kidney disease), stage III Current Visit: Yes Status: Acute Code(s): N18.30 - CHRONIC KIDNEY DISEASE, STAGE 3 UNSPECIFIED SNOMED Code(s): 263622831 (9) H/O prostate cancer Current Visit: Yes Status: Acute Code(s): Z85.46 - PERSONAL HISTORY OF MALIGNANT NEOPLASM OF PROSTATE SNOMED Code(s): 875542871 (10) COPD (chronic obstructive pulmonary disease) Current Visit: Yes Status: Acute Code(s): J44.9 - CHRONIC OBSTRUCTIVE PULMONARY DISEASE, UNSPECIFIED SNOMED Code(s): 32237057 Plan: He'll continue to titrate oxygen down as needed. Continue IV hydration at this time. Incentive spirometer use was encouraged. Being more active and moving as much as possible after surgery was encouraged. We discussed home care, ECF He continues on baby aspirin his Plavix has been restarted. He has Flexeril and lorazepam ordered when necessary for muscle spasm. He is on hydromorphone or hydrocodone for pain as needed. He remains on carvedilol for blood pressure control. He remains on pravastatin for hyperlipidemia and history medical infarction, coronary disease. Will add iron Supplementation, vitamin D3 to his medication regimen. outpatient consideration for a bisphopanate He has ordered for famotidine and pantoprazole for GERD Repeat labs in a.m. I reevaluated next 24 hours
[2020-04-18] MEDS: HYDROcodone/APAP 7.5-325MG 1 EACH TAB PO PRN ×2 (13:49→21:22)
[2020-04-18] MEDS: polyethylene glycoL 3350 17 GM POWD.PACK PO SCH (13:49)
[2020-04-18] MEDS: IRON PS CMPLX/VIT B12/FA 1 EACH CAP PO SCH (17:39)
[2020-04-18] MEDS: CHOLECALCIFEROL 400 UNIT TAB PO SCH (17:40)
[2020-04-18] MEDS ORDERED: CYCLOBENZAPRINE 10 MG TAB PO PRN (18:42)
[2020-04-18] MEDS: PRAVASTATIN SODIUM 40 MG TAB PO SCH (21:18)
[2020-04-18] MEDS: SENNOSIDES-DOCUSATE SODIUM 1 EACH TAB PO SCH (21:18)
[2020-04-18] MEDS: PANTOPRAZOLE 40 MG TABLET PO SCH (21:18)
[2020-04-19] MEDS: LORazepam 0.5 MG TAB PO PRN (03:15)
[2020-04-19 06:17] LABS: Anisocytosis Slight; HCT 26.9 % (39.0-53.0); HGB 9.3 gm/dL (13.0-17.5); Hypochromasia Slight; MCH 27.9 pg (25.0-35.0); MCHC 34.5 g/dL (31.0-37.0); MCV 80.8 fL (80.0-100.0); Mean Platelet Volume 10.9; Microcytosis Slight; Platelet Count 258 k/uL (150-450); Poikilocytosis Moderate; RBC 3.33 m/uL (4.30-5.90); RDW 19.7 % (11.5-15.5); WBC 11.1 k/uL (3.8-10.6)
[2020-04-19] MEDS: SODIUM CHLORIDE 0.9% 1,000 ML IV SCH (08:44)
[2020-04-19] MEDS: polyethylene glycoL 3350 17 GM POWD.PACK PO SCH (08:44)
[2020-04-19] MEDS: HYDROcodone/APAP 5-325MG 1 EACH TAB PO PRN ×2 (08:58→18:07)
[2020-04-19] MEDS: carvediloL 12.5 MG TAB PO SCH ×2 (08:59→17:30)
[2020-04-19] MEDS: ASPIRIN 81 MG PO SCH (08:59)
[2020-04-19] MEDS: CLOPIDOGREL 75 MG TAB PO SCH (08:59)
[2020-04-19] MEDS: FAMOTIDINE 20 MG TAB PO SCH (08:59)
[2020-04-19] MEDS: IRON PS CMPLX/VIT B12/FA 1 EACH CAP PO SCH (09:00)
[2020-04-19] MEDS ORDERED: CLOPIDOGREL 75 MG TAB PO SCH (09:00)
[2020-04-19] MEDS: CHOLECALCIFEROL 400 UNIT TAB PO SCH (09:00)
--- NOTE | 2020-04-19 09:25 | P.PN ---
Subjective Progress Note Date: 04/19/20 CHIEF COMPLAINT: Cardiology clearance HISTORY OF PRESENT ILLNESS: 80-year-old male who underwent right hip hemiarthroplasty on 04/17/2020. Patient examined this morning at the bedside. Patient complains of significant discomfort in his right hip. He states he has not been out of bed ambulating yet this morning. He denies chest pain or pressure. He denies shortness of breath. Blood pressure 167/82. Heart rate 107. Echocardiogram from January 2020 reveals EF 50-55%. PHYSICAL EXAM: VITAL SIGNS: Reviewed. GENERAL: Well-developed in no acute distress. NECK: Supple. No JVD or thyromegaly LUNGS: Respirations even and unlabored. Lungs essentially clear to auscultation bilaterally. HEART: Regular rate and rhythm. S1 and S2 heard. EXTREMITIES: Decreased range of motion to right lower extremity. No clubbing or cyanosis. Peripheral pulses intact. No lower extremity edema ASSESSMENT: Right hip fracture, status post fall Status post right hip hemiarthroplasty Coronary artery disease with recent stent to the LAD, January 2020 Hypertension Chronic kidney disease PLAN: Continue Aspirin and Plavix Continue current dose of Coreg Patients tachycardia may be secondary to pain. Continue to monitor telemetry. If tachycardia persists, may need to increase Coreg Further recommendations pending patient course Patient to follow up outpatient with Dr. Apple Nurse practitioner note has been reviewed by physician. Signing provider agrees with the documented findings, assessment, and plan of care. Objective - Vital Signs Vital signs: Vital Signs Temp 98.1 F 04/19/20 07:43 Pulse 107 H 04/19/20 07:43 Resp 23 04/19/20 07:43 BP 167/82 04/19/20 07:43 Pulse Ox 96 04/19/20 08:55 Intake & Output 04/18/20 04/19/20 04/19/20 18:59 06:59 18:59 Output Total 700 Balance -700 Output: Urine 700 Other: Voiding Method Indwelling Catheter # Voids 3 - Labs CBC & Chem 7: 04/19/20 05:41 04/17/20 09:43 Labs: Abnormal Lab Results - Last 24 Hours (Table) 04/18/20 04/19/20 Range/Units 06:00 05:41 WBC 11.1 H (3.8-10.6) k/uL RBC 3.33 L (4.30-5.90) m/uL Hgb 9.3 L (13.0-17.5) gm/dL Hct 26.9 L (39.0-53.0) % RDW 19.7 H (11.5-15.5) % Iron 25 L (65-175) ug/dL % Saturation 10.78 L (15.00-50.00) Microbiology - Last 24 Hours (Table) 04/17/20 10:31 Nasal Screen MRSA/MSSA - Final Nasal Swab
--- NOTE | 2020-04-19 09:54 | P.PN ---
Subjective Progress Note Date: 04/19/20 Principal diagnosis: Status post right hip hemiarthroplasty Patient was evaluated today at bedside, he was resting and having breakfast in his hospital chair. He notes discomfort of the right lower extremity mini with movement. He has been doing home exercises that therapy demonstrated to him. He is not ambulating the halls at this time. Urinary catheter was removed yesterday, he is utilizing the urinal as needed. Patient denies any acute chest pain, change in shortness of breath, nausea vomiting, fever or chills, lower extremity paresthesias. Objective - Vital Signs Vital signs: Vital Signs Temp 98.1 F 04/19/20 07:43 Pulse 107 H 04/19/20 07:43 Resp 23 04/19/20 07:43 BP 167/82 04/19/20 07:43 Pulse Ox 96 04/19/20 08:55 Intake & Output 04/18/20 04/19/20 04/19/20 18:59 06:59 18:59 Output Total 700 Balance -700 Output: Urine 700 Other: Voiding Method Indwelling Catheter # Voids 3 - Exam Right lower extremity: Optifoam dressing is in good position and condition. There is minimal soft tissue swelling and ecchymosis surrounding the medial and lateral aspects of the incision. Calf is soft, no tenderness with palpation. Plantar flexion, dorsiflexion, EHL, FHL are intact. Sensory exam to light touch throughout the extremity is intact, dorsal pedis pulses 2+. - Labs CBC & Chem 7: 04/19/20 05:41 04/17/20 09:43 Labs: Abnormal Lab Results - Last 24 Hours (Table) 04/18/20 04/19/20 Range/Units 06:00 05:41 WBC 11.1 H (3.8-10.6) k/uL RBC 3.33 L (4.30-5.90) m/uL Hgb 9.3 L (13.0-17.5) gm/dL Hct 26.9 L (39.0-53.0) % RDW 19.7 H (11.5-15.5) % Iron 25 L (65-175) ug/dL % Saturation 10.78 L (15.00-50.00) Microbiology - Last 24 Hours (Table) 04/17/20 10:31 Nasal Screen MRSA/MSSA - Final Nasal Swab Assessment and Plan Assessment: Status post right hip hemiarthroplasty Acute blood loss anemia, expected surgical outcome Other medical comorbidities Plan: Pain control, continue current regimen DVT prophylaxis, continue subcu medication Continue to monitor hemoglobin Physical therapy evaluation today, this included walker ambulation Posterior hip precautions were discussed with patient at bedside Internal medicine and cardiac recommendations, cardiology's notes were reviewed and they are monitoring the tachycardia Admission will be transferred over to internal medicine at this time, patient is orthopedically stable. We will continue to follow the patient daily during inpatient stay Patient does have 6 stairs at his home along with an elderly . I anticipate the patient will need subacute rehab from 2-4 weeks before being discharged home with home care Time with Patient: Less than 30
[2020-04-19 10:07] LABS: African American GFR (CKD) 31.8 (60.0-200.0); Anion Gap 7.4 mmol/L (4.00-12.00); BUN/Creat Ratio 16.82 Ratio (12.00-20.00); Carbon Dioxide 22.6 mmol/L (21.6-31.8); Non-African American GFR(CKD) 27.5 (60.0-200.0)
[2020-04-19] MEDS ORDERED: IPRATROPIUM-ALBUTEROL 3 ML NEB INHALATION PRN (10:27)
--- NOTE | 2020-04-19 11:41 | XR ---
EXAMINATION TYPE: XR chest 1V portable DATE OF EXAM: 04/19/2020 COMPARISON: 04/16/2020 HISTORY: Hypoxia TECHNIQUE: Single frontal view of the chest is obtained. FINDINGS: Hyperinflation suggests COPD. There is arthropathy of the shoulders with bibasilar subsegm ental consolidation. Heart size normal. Atherosclerotic change aorta. No pleural effusion or pneumoth orax. IMPRESSION: 1. COPD with basilar atelectasis or early infiltrate correlate clinically.
[2020-04-19] MEDS: IPRATROPIUM-ALBUTEROL 3 ML NEB INHALATION SCH ×3 (12:31→20:10)
[2020-04-19] MEDS: SYMBICORT 160-4.5 MCG INHALER INHALATION SCH ×2 (12:31→20:10)
--- NOTE | 2020-04-19 13:26 | P.NPCON ---
History of Present Illness - Reason for Consult acute renal failure, chronic renal failure - History of Present Illness Reason for consultation: Acute kidney injury on chronic kidney disease History of present illness: A slight patient is a 80-year-old male seen in renal consultation for acute kidney injury and chronic kidney disease. Patient has chronic kidney disease stage III with baseline creatinine in the range of 1.5-2. Creatinine was 1.95 on admission and is 2.2 today. Patient presented to the hospital after he slipped on ice and was noted to have right hip fracture. He underwent surgical intervention this admission. He was on oral diuretics which was stopped yesterday. He did receive IV fluids overnight. Blood pressure stable. Denies use of nonsteroidals. He has a Doran catheter. Nonoliguric. No history of diabetes. Oral intake is fair. Doesn't like the food in the hospital. No chest pain or shortness of breath. No fever or chills. No cough. No abdominal pain. Vital signs are stable. General: The patient appeared well nourished and normally developed. HEENT: Head exam is unremarkable. Neck is without jugular venous distension. LUNGS: Breath sounds decreased. HEART: Rate and Rhythm are regular. ABDOMEN: Soft, nontender. EXTREMITITES: No edema. Past Medical History Past Medical History: Cancer, Chest Pain / Angina, COPD, GERD/Reflux, Hearing Disorder / Deafness, Hyperlipidemia, Hypertension, Myocardial Infarction ([place]), Osteoarthritis (OA), Prostate Disorder, Pulmonary Embolus (PE) Additional Past Medical History / Comment(s): Interstitial lung disease, pulmonary fibrosis, PE in 2011-pt cannot recall laterality, past home O2 use but none now, RIANA-cannot tolerate Cpap, prostate cancer with radiation treatment, skin cancer with removals, nephrolithiasis, migraines, compression fracture low back, bilateral elbow fractures with surgery, PUD, jaundiced as a child, [place] bilaterally. "mild" [place] in january 2020. Last Myocardial Infarction Date:: January 2020 History of Any Multi-Drug Resistant Organisms: None Reported Past Surgical History: Appendectomy, Cholecystectomy, Heart Catheterization, Heart Catheterization With Stent, Hernia Repair, Joint Replacement, Orthopedic Surgery Additional Past Surgical History / Comment(s): Prostate biopsy, L hand partial amp of 2 fingers, L knee ACL repair, R knee arthroscopy, bilateral total elbow replacements per pt, bilateral cataract removals, L inguinal hernia repair, cardiac caths x 2, EGD, colonoscopy, skin cancer removals. Past Anesthesia/Blood Transfusion Reactions: No Reported Reaction Date of Last Stent Placement:: January 2020. Past Psychological History: Anxiety, Depression Additional Psychological History / Comment(s): Pt resides with his spouse. He is independent. Smoking Status: Former smoker Past Alcohol Use History: None Reported Additional Past Alcohol Use History / Comment(s): Pt started smoking in 1960 and quit in 2004. Past Drug Use History: None Reported - Past Family History Brother(s) Family Medical History: Cancer Additional Family Medical History / Comment(s): ONE BROTHER HAD LUNG CA & ANOTHER HAD MELANOMA. Brother just recently last week. Mother Family Medical History: AICD/Pacemaker Father Family Medical History: No Reported History Sister(s) Family Medical History: No Reported History Medications and Allergies Home Medications Medication Instructions Recorded Confirmed Type Pantoprazole Sodium [Protonix] 40 mg PO HS 03/08/16 04/16/20 History Cholecalciferol [Vitamin D3 (25 1,000 unit PO HS 12/12/18 04/16/20 History Mcg = 1000 Iu)] Vit C/E/Zn/Coppr/Lutein/Zeaxan 1 cap PO BID 12/12/18 04/16/20 History [Preservision Areds 2 Softgel] calcium polycarbophiL [Fibercon] 625 mg PO HS 12/12/18 04/16/20 History LORazepam [Ativan] 0.5 mg PO BID 02/03/20 04/16/20 History Aspirin 81 mg PO DAILY #30 chew 02/05/20 04/16/20 Rx Carvedilol [Coreg] 12.5 mg PO BID 04/16/20 04/16/20 History Clopidogrel [Plavix] 75 mg PO DAILY 04/16/20 04/16/20 History Furosemide [Lasix] 20 mg PO DAILY@1200 04/16/20 04/16/20 History Pravastatin Sodium [Pravachol] 40 mg PO HS 04/16/20 04/16/20 History Allergies Allergy/AdvReac Type Severity Reaction Status Date / Time alprazolam [From Xanax] AdvReac Unknown Verified 04/16/20 13:28 Physical Exam Vitals: Vital Signs Temp Pulse Pulse Resp BP Pulse Ox 04/19/20 12:44 98 04/19/20 12:32 98 04/19/20 08:55 96 04/19/20 07:43 98.1 F 107 H 23 167/82 93 L 04/19/20 03:04 97.9 F 105 H 19 145/76 93 L 04/18/20 19:28 96 16 04/18/20 18:57 98.4 F 107 H 18 144/66 94 L 04/18/20 17:51 16 90 L 04/18/20 14:00 97.4 F L 96 17 135/67 97 Intake and Output 04/18/20 04/19/20 04/19/20 22:59 06:59 14:59 Output Total 400 Balance -400 Output: Urine 400 Other: # Voids 3 Results - Lab Results Most recent lab results Calcium 8.0 mg/dL (8.7-10.3) L 04/19/20 05:41 Magnesium 1.8 mg/dL (1.5-2.4) 04/18/20 06:00 04/19/20 05:41 04/19/20 05:41 Assessment and Plan Plan: Assessment: 1. Acute kidney injury mostly prerenal from diuretics and poor intake. Creatinine 2.2 today. Rule out urinary retention. 2. Chronic kidney disease stage IIIB with baseline creatinine in the range of 1.5-2. Etiology is likely nephrosclerosis. 3. Acute blood loss anemia status post hip surgery. Iron deficiency noted as well. 4. Right hip fracture status post hemiarthroplasty this admission. 5. Hypertension with chronic kidney disease. Stable. Plan: Hep-Lock IV fluids. Encouraged oral intake. Continue to hold Lasix. Check bladder scan to make sure no urinary retention. IV iron 3 doses. First dose today. Avoid nephrotoxins. Continue to monitor renal function and urine output. Check UPC. Thank you for the consultation. I will continue to follow the patient with you during his hospital stay.
--- NOTE | 2020-04-19 13:30 | P.PN ---
Subjective Progress Note Date: 04/19/20 Sergey is a 80-year-old white male well-known to the practice and treats regularly my partner. He had fallen at home on ice on 04/16/2019 patient he landed on his right hip. He denied any head injuries. It is significant pain and trouble walking he came emergency room, was found to have a closed fracture of the femoral neck on the right side. He is admitted to orthopedic surgery. They're planning ORIF of the right hip soon. Sergey denies any chest pains, pressures, shortness of breath this time. He unde rwent a left heart catheterization and angioplasty with PTCA and stenting of the proximal left anterior descending coronary artery with drug-eluting stent on 02/04/2020. He has a history of hypertension, coronary disease, COPD, chronic renal failure, stones, and a possible non-ST elevated microinfarction in January as well. Emergency room labs show a CBC with leukocytosis with left shift and his hemoglobin is 12.8 with microcytosis. Blood chemistries show a GFR of 32. Her analysis was normal. 04/18/2020: Patient is status post right hip hemiarthroplasty for a right hip femoral neck fracture closed, displaced, complete. Cardiology had seen him and cleared him with his history of recent myocardial infarction and stenting. They had his Plavix held and recommended continuing his baby aspirin. Postoperatively he was slightly hypoxic and his oxygen needs were up to 8 L/m via nasal cannula. Currently they're at 4 L/m with a pulse oximetry 92%. Blood pressures remained slightly elevated but stable. Heart rate has remained stable and respiratory rate normal. He is afebrile. White count remained slightly elevated and his hemoglobin is dropped from 12.8-10.1, she is expected postop eratively. He remains microcytic. Iron studies are consistent with iron deficiency anemia. Kidney functions a worsened with GFR dropping from 32-29 at this time. A hemoglobin A1c to evaluate his elevated glucoses 4.8, which is normal. He denies any chest pains pressures. He does complain of some shortness of breath. He is in good spirits. He is not moving very much this time, per nursing staff. PT/OT will see him tomorrow. Orthopedics are discussed home care with his . He and I briefly discussed the ECF should he not recover adequately to go home. 04/19/20 sitting up in chair, needs his reading glasses. Pain controlled. Denies chest pain, shortness of breath. Denies nausea vomiting or diarrhea. Passing flatus. Renal function continues trending up. Hypoxic, requiring 3 L nasal cannula to maintain O2 sats in the 90s. Mild tachycardia. Objective - Vital Signs Vital signs: Vital Signs Temp 98.1 F 04/19/20 07:43 Pulse 107 H 04/19/20 07:43 Resp 23 04/19/20 07:43 BP 167/82 04/19/20 07:43 Pulse Ox 96 04/19/20 08:55 Intake & Output 04/18/20 04/19/20 04/19/20 18:59 06:59 18:59 Output Total 700 Balance -700 Output: Urine 700 Other: Voiding Method Indwelling Catheter # Voids 3 - Exam - Exam GENERAL: Awake,alert and oriented 3, sitting up in chair, in no acute distress NECK: Normal range of motion, supple without lymphadenopathy or JVD, no thyromegaly LUNGS: Breath sounds slightly coarse to auscultation bilaterally and equal. No wheezes rales or rhonchi. HEART: Regular rate and rhythm without murmurs, rubs or gallops.S1S2 Normal ABDOMEN: Soft, nontender, normoactive bowel sounds. No guarding, no rebound. No masses appreciated. EXTREMITIES: Right hip dressing clean, dry and intact.Normal range of motion, no pitting or edema.No clubbing or cyanosis. Positive DP pulse. NEUROLOGICAL: Cranial nerves II through XII grossly intact. Normal speech, normal gait. PSYCH: Normal mood, normal affect. SKIN: Warm, Dry, normal turgor, no rash noted. - Labs CBC & Chem 7: 04/19/20 05:41 04/19/20 05:41 Labs: Abnormal Lab Results - Last 24 Hours (Table) 04/19/20 04/19/20 Range/Units 05:41 05:41 WBC 11.1 H (3.8-10.6) k/uL RBC 3.33 L (4.30-5.90) m/uL Hgb 9.3 L (13.0-17.5) gm/dL Hct 26.9 L (39.0-53.0) % RDW 19.7 H (11.5-15.5) % BUN 37.0 H (9.0-27.0) mg/dL Creatinine 2.2 H (0.6-1.5) mg/dL Est GFR (CKD-EPI)AfAm 31.8 L (60.0-200.0) Est GFR (CKD-EPI)NonAf 27.5 L (60.0-200.0) Glucose 116 H (70-110) mg/dL Calcium 8.0 L (8.7-10.3) mg/dL Microbiology - Last 24 Hours (Table) 04/17/20 10:31 Nasal Screen MRSA/MSSA - Final Nasal Swab Assessment and Plan Assessment: (1) S/P hip hemiarthroplasty Narrative/Plan: RIGHT Current Visit: Yes Status: Acute Code(s): Z96.649 - PRESENCE OF UNSPECIFIED ARTIFICIAL HIP JOINT SNOMED Code(s): 534691701 (2) Fracture of femoral neck, right, closed Current Visit: Yes Status: Acute Code(s): S72.001A - FRACTURE OF UNSP PART OF NECK OF RIGHT FEMUR, INIT SNOMED Code(s): 660670927 (3) H/O myocardial infarction, greater than 8 weeks Current Visit: Yes Status: Acute Code(s): I25.2 - OLD MYOCARDIAL INFARCTION SNOMED Code(s): 1126744 (4) Coronary artery disease Current Visit: Yes Status: Acute Code(s): I25.10 - ATHSCL HEART DISEASE OF [place] CORONARY ARTERY W/O ANG PCTRS SNOMED Code(s): 98368433 (5) H/O heart artery stent Current Visit: Yes Status: Acute Code(s): Z95.5 - PRESENCE OF CORONARY ANGIOPLASTY IMPLANT AND GRAFT SNOMED Code(s): 993331022 (6) Essential (primary) hypertension Current Visit: Yes Status: Acute Code(s): I10 - ESSENTIAL (PRIMARY) HYPERTENSION SNOMED Code(s): 71981667 (7) Leukocytosis Current Visit: Yes Status: Acute Code(s): D72.829 - ELEVATED WHITE BLOOD CELL COUNT, UNSPECIFIED SNOMED Code(s): 572955266 (8) acute on CKD (chronic kidney disease), stage III Current Visit: Yes Status: Acute Code(s): N18.30 - CHRONIC KIDNEY DISEASE, STAGE 3 UNSPECIFIED SNOMED Code(s): 076193160 (9) H/O prostate cancer Current Visit: Yes Status: Acute Code(s): Z85.46 - PERSONAL HISTORY OF MALIGNANT NEOPLASM OF PROSTATE SNOMED Code(s): 211935596 (10) COPD (chronic obstructive pulmonary disease) Current Visit: Yes Status: Acute Code(s): J44.9 - CHRONIC OBSTRUCTIVE PULMONARY DISEASE, UNSPECIFIED SNOMED Code(s): 17640080 Plan: Continue on current medication regime ,monitoring and symptomatic treatment. DVT prophylaxis, pain management as per orthopedic surgery. Worsening renal function, Lasix discontinued. Maintain IV fluid hydration. Nephrology consulted. Hypoxia with mild tachycardia, follow-up chest x-ray ordered. Nebulized bronchodilators LABA ordered. Patient complaining unable to repeat his exercise sheet given to him by physical therapy, as he does not have his glasses. Discussed with RN who will notify family or possibly obtain some cheap readers. Physical therapy evaluated, recommending subacute rehab. Social work assisting with discharge planning. The impression and plan of care has been dictated as directed. : I performed a history and examination of this patient, discussed the same with the dictator. I agree with the dictator's note ,documented as a scribe. Any additional findings or plans will be noted.
[2020-04-19] MEDS: SODIUM FERRIC GLUCONAT-SUCROSE 125 MG in SODIUM CHLORIDE 0.9% 100 ML IVPB SCH (17:30)
[2020-04-19] MEDS: SENNOSIDES-DOCUSATE SODIUM 1 EACH TAB PO SCH (20:20)
[2020-04-19] MEDS: PANTOPRAZOLE 40 MG TABLET PO SCH (20:20)
[2020-04-19] MEDS: PRAVASTATIN SODIUM 40 MG TAB PO SCH (20:21)
[2020-04-20] MEDS: HYDROcodone/APAP 5-325MG 1 EACH TAB PO PRN ×2 (00:35→09:42)
[2020-04-20 00:38] LABS: Creatinine,Urine Random 133.2 mg/dL; Protein/Creatinine Ratio,Urine 1.021
[2020-04-20 07:33] LABS: Anisocytosis Moderate; Basophils # (A) 0.1 k/uL (0-0.2); Basophils % (A) 1 %; Eosinophils # (A) 0.2 k/uL (0-0.7); Eosinophils % (A) 2 %; HCT 25.8 % (39.0-53.0); HGB 8.7 gm/dL (13.0-17.5); Lymphocytes # (A) 1.1 k/uL (1.0-4.8); Lymphocytes % (A) 10 %; MCH 27.1 pg (25.0-35.0); MCHC 33.8 g/dL (31.0-37.0); MCV 80.2 fL (80.0-100.0); Mean Platelet Volume 11.1; Microcytosis Slight; Monocytes # (A) 0.4 k/uL (0-1.0); Monocytes % (A) 4 %; Neutrophils # (A) 9.3 k/uL (1.3-7.7); Neutrophils % (A) 82 %; Platelet Count 246 k/uL (150-450); Poikilocytosis Moderate; RBC 3.21 m/uL (4.30-5.90); WBC 11.3 k/uL (3.8-10.6)
[2020-04-20] MEDS: polyethylene glycoL 3350 17 GM POWD.PACK PO SCH (08:08)
[2020-04-20] MEDS: carvediloL 12.5 MG TAB PO SCH ×2 (08:08→17:40)
[2020-04-20] MEDS: IRON PS CMPLX/VIT B12/FA 1 EACH CAP PO SCH (08:08)
[2020-04-20] MEDS: CLOPIDOGREL 75 MG TAB PO SCH (08:08)
[2020-04-20] MEDS: CHOLECALCIFEROL 400 UNIT TAB PO SCH (08:08)
[2020-04-20] MEDS: ASPIRIN 81 MG PO SCH (08:08)
[2020-04-20] MEDS: LORazepam 0.5 MG TAB PO PRN ×2 (08:13→21:01)
[2020-04-20] MEDS: IPRATROPIUM-ALBUTEROL 3 ML NEB INHALATION SCH ×4 (08:17→21:09)
[2020-04-20] MEDS: SYMBICORT 160-4.5 MCG INHALER INHALATION SCH ×2 (08:17→21:09)
[2020-04-20 08:39] LABS: Large Platelets Present; Polychromasia Present
[2020-04-20 08:40] LABS: Ovalocytes Present
--- NOTE | 2020-04-20 10:39 | P.PN ---
Subjective Progress Note Date: 04/20/20 Principal diagnosis: Status post right hip hemiarthroplasty Patient was evaluated today at bedside, he is resting in the hospital chair. He continues to utilize the home exercises. He still having a difficult time ambulating, he has only made it a few steps around his room. He is utilizing the walker. Patient does feel excessively weak and tired after doing the exercises. Patient denies any acute chest pain, change in shortness of breath, nausea vomiting, fever or chills, lower extremity paresthesias. Objective - Vital Signs Vital signs: Vital Signs Temp 98.5 F 04/20/20 07:48 Pulse 95 04/20/20 08:29 Resp 18 04/20/20 07:48 BP 132/70 04/20/20 07:48 Pulse Ox 97 04/20/20 08:17 Intake & Output 04/19/20 04/20/20 04/20/20 18:59 06:59 18:59 Intake Total 100 Balance 100 Intake: Oral 100 Other: Voiding Method Indwelling Catheter # Voids 3 4 - Exam Right lower extremity: Optifoam dressing is in good position and condition. There is minimal soft tissue swelling and ecchymosis surrounding the medial and lateral aspects of the incision. Calf is soft, no tenderness with palpation. Plantar flexion, dorsiflexion, EHL, FHL are intact. Sensory exam to light touch throughout the extremity is intact, dorsal pedis pulses 2+. - Labs CBC & Chem 7: 04/20/20 06:48 04/19/20 05:41 Labs: Abnormal Lab Results - Last 24 Hours (Table) 04/20/20 Range/Units 06:48 WBC 11.3 H (3.8-10.6) k/uL RBC 3.21 L (4.30-5.90) m/uL Hgb 8.7 L (13.0-17.5) gm/dL Hct 25.8 L (39.0-53.0) % RDW 20.0 H (11.5-15.5) % Neutrophils # 9.3 H (1.3-7.7) k/uL Assessment and Plan Assessment: Status post right hip hemiarthroplasty Acute blood loss anemia, expected surgical outcome Other medical comorbidities Plan: Pain control, continue current regimen DVT prophylaxis, continue subcu medication Discussed with nursing patient's current hemoglobin and how it has trended down over the last few days. We'll have her contact internal medicine and cardiology as regards to the possibility of transfusing 1 unit of packed RBCs. Continue with exercises along with physical therapy Posterior hip precautions were discussed with patient at bedside Internal medicine and cardiac recommendations Patient continues to need subacute rehab, hopeful discharge in the next day or 2 Time with Patient: Less than 30
[2020-04-20 13:02] LABS: African American GFR (CKD) 30.2 (60.0-200.0); Anion Gap 6.1 mmol/L (4.00-12.00); BUN/Creat Ratio 15.22 Ratio (12.00-20.00); Calcium 8.1 mg/dL (8.7-10.3); Carbon Dioxide 23.9 mmol/L (21.6-31.8); Magnesium 1.9 mg/dL (1.5-2.4); Potassium 4.1 mmol/L (3.5-5.5)
--- NOTE | 2020-04-20 13:54 | P.PN ---
Subjective Patient is seen in follow-up for acute kidney injury on chronic kidney disease. Renal function fairly stable. Creatinine 2.3 today. Denies chest pain or shortness of breath. Oral intake is slowly improving. No vomiting or diarrhea. Blood pressure stable. Vital signs are stable. General: The patient appeared well nourished and normally developed. HEENT: Head exam is unremarkable. Neck is without jugular venous distension. LUNGS: Breath sounds decreased. HEART: Rate and Rhythm are regular. ABDOMEN: Soft, nontender. EXTREMITITES: No edema. Objective - Vital Signs Vital signs: Vital Signs Temp 98.5 F 04/20/20 07:48 Pulse 92 04/20/20 11:50 Resp 18 04/20/20 07:48 BP 132/70 04/20/20 07:48 Pulse Ox 97 04/20/20 08:17 Intake & Output 04/19/20 04/20/20 04/20/20 18:59 06:59 18:59 Intake Total 100 Balance 100 Intake: Oral 100 Other: Voiding Method Indwelling Catheter Indwelling Catheter # Voids 3 4 - Labs CBC & Chem 7: 04/20/20 06:48 04/20/20 06:48 Labs: Abnormal Lab Results - Last 24 Hours (Table) 04/20/20 04/20/20 Range/Units 06:48 06:48 WBC 11.3 H (3.8-10.6) k/uL RBC 3.21 L (4.30-5.90) m/uL Hgb 8.7 L (13.0-17.5) gm/dL Hct 25.8 L (39.0-53.0) % RDW 20.0 H (11.5-15.5) % Neutrophils # 9.3 H (1.3-7.7) k/uL Chloride 110 H (96-109) mmol/L BUN 35.0 H (9.0-27.0) mg/dL Creatinine 2.3 H (0.6-1.5) mg/dL Est GFR (CKD-EPI)AfAm 30.2 L (60.0-200.0) Est GFR (CKD-EPI)NonAf 26.0 L (60.0-200.0) Calcium 8.1 L (8.7-10.3) mg/dL Assessment and Plan Plan: Assessment: 1. Acute kidney injury mostly prerenal from diuretics and poor intake. Creatinine 2.3 today. Renal ultrasound from January 2020 revealed small sized right kidney. No hydronephrosis was noted. 2. Chronic kidney disease stage IIIB with baseline creatinine in the range of 1.5-2. Etiology is likely nephrosclerosis. 3. Acute blood loss anemia status post hip surgery. Iron deficiency noted as well. 4. Right hip fracture status post hemiarthroplasty this admission. 5. Hypertension with chronic kidney disease. Stable. 6. Proteinuria. UPC 1.02 g. rule out GN. Plan: Encouraged oral intake. Continue to hold Lasix. Monitor bladder scans to make sure no urinary retention. IV iron 3 doses. Second dose today. Avoid nephrotoxins. Continue to monitor renal function and urine output. Check serologies. Repeat renal ultrasound.
--- NOTE | 2020-04-20 13:55 | P.PN ---
Subjective Progress Note Date: 04/20/20 CHIEF COMPLAINT: Cardiology clearance HISTORY OF PRESENT ILLNESS: 80-year-old male who underwent right hip hemiarthroplasty on 04/17/2020. Patient examined this morning at the bedside. Patient reports the pain in his right hip is improved today compared to yes terday. He denies chest pain or pressure. He denies shortness of breath. Blood pressure 132/70. Heart rate in the 90s. Hemoglobin 8.7. PHYSICAL EXAM: VITAL SIGNS: Reviewed. GENERAL: Well-developed in no acute distress. NECK: Supple. No JVD or thyromegaly LUNGS: Respirations even and unlabored. Lungs essentially clear to auscultation bilaterally. HEART: Regular rate and rhythm. S1 and S2 heard. EXTREMITIES: Decreased range of motion to right lower extremity. No clubbing or cyanosis. Peripheral pulses intact. No lower extremity edema ASSESSMENT: Right hip fracture, status post fall Status post right hip hemiarthroplasty Coronary artery disease with recent stent to the LAD, January 2020 Hypertension Chronic kidney disease PLAN: No indication for RBC transfusion from a cardiac standpoint at this time. Continue Aspirin and Plavix Continue current dose of Coreg Further recommendations pending patient course Patient to follow up outpatient with Dr. Apple Nurse practitioner note has been reviewed by physician. Signing provider agrees with the documented findings, assessment, and plan of care. Objective - Vital Signs Vital signs: Vital Signs Temp 98.5 F 04/20/20 07:48 Pulse 92 04/20/20 11:50 Resp 18 04/20/20 07:48 BP 132/70 04/20/20 07:48 Pulse Ox 97 04/20/20 08:17 Intake & Output 04/19/20 04/20/20 04/20/20 18:59 06:59 18:59 Intake Total 100 Balance 100 Intake: Oral 100 Other: Voiding Method Indwelling Catheter Indwelling Catheter # Voids 3 4 - Labs CBC & Chem 7: 04/20/20 06:48 04/20/20 06:48 Labs: Abnormal Lab Results - Last 24 Hours (Table) 04/20/20 04/20/20 Range/Units 06:48 06:48 WBC 11.3 H (3.8-10.6) k/uL RBC 3.21 L (4.30-5.90) m/uL Hgb 8.7 L (13.0-17.5) gm/dL Hct 25.8 L (39.0-53.0) % RDW 20.0 H (11.5-15.5) % Neutrophils # 9.3 H (1.3-7.7) k/uL Chloride 110 H (96-109) mmol/L BUN 35.0 H (9.0-27.0) mg/dL Creatinine 2.3 H (0.6-1.5) mg/dL Est GFR (CKD-EPI)AfAm 30.2 L (60.0-200.0) Est GFR (CKD-EPI)NonAf 26.0 L (60.0-200.0) Calcium 8.1 L (8.7-10.3) mg/dL
--- NOTE | 2020-04-20 14:48 | P.PN ---
Subjective Progress Note Date: 04/20/20 Sergey is a 80-year-old white male well-known to the practice and treats regularly my partner. He had fallen at home on ice on 04/16/2019 patient he landed on his right hip. He denied any head injuries. It is significant pain and trouble walking he came emergency room, was found to have a closed fracture of the femoral neck on the right side. He is admitted to orthopedic surgery. They're planning ORIF of the right hip soon. Sergey denies any chest pains, pressures, shortness of breath this time. He unde rwent a left heart catheterization and angioplasty with PTCA and stenting of the proximal left anterior descending coronary artery with drug-eluting stent on 02/04/2020. He has a history of hypertension, coronary disease, COPD, chronic renal failure, stones, and a possible non-ST elevated microinfarction in January as well. Emergency room labs show a CBC with leukocytosis with left shift and his hemoglobin is 12.8 with microcytosis. Blood chemistries show a GFR of 32. Her analysis was normal. 04/18/2020: Patient is status post right hip hemiarthroplasty for a right hip femoral neck fracture closed, displaced, complete. Cardiology had seen him and cleared him with his history of recent myocardial infarction and stenting. They had his Plavix held and recommended continuing his baby aspirin. Postoperatively he was slightly hypoxic and his oxygen needs were up to 8 L/m via nasal cannula. Currently they're at 4 L/m with a pulse oximetry 92%. Blood pressures remained slightly elevated but stable. Heart rate has remained stable and respiratory rate normal. He is afebrile. White count remained slightly elevated and his hemoglobin is dropped from 12.8-10.1, she is expected postop eratively. He remains microcytic. Iron studies are consistent with iron deficiency anemia. Kidney functions a worsened with GFR dropping from 32-29 at this time. A hemoglobin A1c to evaluate his elevated glucoses 4.8, which is normal. He denies any chest pains pressures. He does complain of some shortness of breath. He is in good spirits. He is not moving very much this time, per nursing staff. PT/OT will see him tomorrow. Orthopedics are discussed home care with his . He and I briefly discussed the ECF should he not recover adequately to go home. 04/19/20 sitting up in chair, needs his reading glasses. Pain controlled. Denies chest pain, shortness of breath. Denies nausea vomiting or diarrhea. Passing flatus. Renal function continues trending up. Hypoxic, requiring 3 L nasal cannula to maintain O2 sats in the 90s. Mild tachycardia. 04/20/20 chest x-ray reporting COPD, bibasilar atelectasis or early infiltrates. Incentive spirometer up to 1500. Oxygen requirements increased,requiring 4 L nasal cannula to maintain O2 sats in the 90s. Empiric Rocephin and Zithromax initiated. Hemoglobin continuing to trend down currently 8.7, receiving second IV bag of venofer. BUN 35, creatinine 2.3. Afebrile, WBC 11.3. Denies chest pain, palpitations. Pain controlled. Physical therapy recommending subacute rehab at discharge. Objective - Vital Signs Vital signs: Vital Signs Temp 98.5 F 04/20/20 07:48 Pulse 90 04/20/20 11:39 Resp 18 04/20/20 07:48 BP 132/70 04/20/20 07:48 Pulse Ox 97 04/20/20 08:17 Intake & Output 04/19/20 04/20/20 04/20/20 18:59 06:59 18:59 Intake Total 100 Balance 100 Intake: Oral 100 Other: Voiding Method Indwelling Catheter Indwelling Catheter # Voids 3 4 - Exam - Exam GENERAL: Awake,alert and oriented 3, sitting up in chair, no acute distress NECK: Normal range of motion, supple,no JVD, no thyromegaly LUNGS: Breath sounds slightly coarse to auscultation bilaterally and equal. No rhonchi or wheezes. Minimal right basilar crackles. HEART: Regular rate and rhythm without murmurs, rubs or gallops.S1S2 Normal ABDOMEN: Soft, nontender, normoactive bowel sounds. No guarding, no rebound. No masses appreciated. EXTREMITIES: Right hip dressing clean, dry and intact.Normal range of motion, no pitting or edema.No clubbing or cyanosis. Positive DP pulse. NEUROLOGICAL: Cranial nerves II through XII grossly intact. Normal speech, normal gait. PSYCH: Normal mood, normal affect. SKIN: Warm, Dry, normal turgor, no rash noted. - Labs CBC & Chem 7: 04/20/20 06:48 04/20/20 06:48 Labs: Abnormal Lab Results - Last 24 Hours (Table) 04/20/20 Range/Units 06:48 WBC 11.3 H (3.8-10.6) k/uL RBC 3.21 L (4.30-5.90) m/uL Hgb 8.7 L (13.0-17.5) gm/dL Hct 25.8 L (39.0-53.0) % RDW 20.0 H (11.5-15.5) % Neutrophils # 9.3 H (1.3-7.7) k/uL Assessment and Plan Assessment: (1) S/P hip hemiarthroplasty Narrative/Plan: RIGHT Current Visit: Yes Status: Acute Code(s): Z96.649 - PRESENCE OF UNSPECIFIED ARTIFICIAL HIP JOINT SNOMED Code(s): 819690688 (2) Fracture of femoral neck, right, closed Current Visit: Yes Status: Acute Code(s): S72.001A - FRACTURE OF UNSP PART OF NECK OF RIGHT FEMUR, INIT SNOMED Code(s): 617728168 (3) H/O myocardial infarction, greater than 8 weeks Current Visit: Yes Status: Acute Code(s): I25.2 - OLD MYOCARDIAL INFARCTION SNOMED Code(s): 9151619 (4) Coronary artery disease Current Visit: Yes Status: Acute Code(s): I25.10 - ATHSCL HEART DISEASE OF [place] CORONARY ARTERY W/O ANG PCTRS SNOMED Code(s): 82805316 (5) H/O heart artery stent Current Visit: Yes Status: Acute Code(s): Z95.5 - PRESENCE OF CORONARY ANGIOPLASTY IMPLANT AND GRAFT SNOMED Code(s): 162811210 (6) Essential (primary) hypertension Current Visit: Yes Status: Acute Code(s): I10 - ESSENTIAL (PRIMARY) HYPERT ENSION SNOMED Code(s): 95209536 (7) Leukocytosis Current Visit: Yes Status: Acute Code(s): D72.829 - ELEVATED WHITE BLOOD CELL COUNT, UNSPECIFIED SNOMED Code(s): 865084561 (8) acute on CKD (chronic kidney disease), stage III Current Visit: Yes Status: Acute Code(s): N18.30 - CHRONIC KIDNEY DISEASE, STAGE 3 UNSPECIFIED SNOMED Code(s): 892597997 (9) H/O prostate cancer Current Visit: Yes Status: Acute Code(s): Z85.46 - PERSONAL HISTORY OF MALIGNANT NEOPLASM OF PROSTATE SNOMED Code(s): 930959701 (10) COPD (chronic obstructive pulmonary disease) Current Visit: Yes Status: Acute Code(s): J44.9 - CHRONIC OBSTRUCTIVE PULMONARY DISEASE, UNSPECIFIED SNOMED Code(s): 17550490 (11) acute blood loss anemia, postop, expected outcome and iron deficient (12) acute hypoxic respiratory failure secondary to the above. Plan: Continue on current medication regime ,monitoring and symptomatic treatment. No RBC transfusion at this time as per both cardiology and nephrology. Lasix remains on hold .DVT prophylaxis, pain management as per orthopedic surgery. Follow-up chest x-ray in am. Aggressive pulmonary toileting with incentive spirometer reinforced .Maintain nebulized bronchodilators & LABA. Social work assisting with discharge planning. The impression and plan of care has been dictated as directed. : I performed a history and examination of this patient, discussed the same with the dictator. I agree with the dictator's note ,documented as a scribe. Any ad ditional findings or plans will be noted.
[2020-04-20] MEDS: SODIUM FERRIC GLUCONAT-SUCROSE 125 MG in SODIUM CHLORIDE 0.9% 100 ML IVPB SCH (14:54)
--- NOTE | 2020-04-20 15:11 | US ---
EXAMINATION TYPE: US kidneys/renal and bladder DATE OF EXAM: 04/20/2020 COMPARISON: NONE CLINICAL HISTORY: jed. JED EXAM MEASUREMENTS: Right Kidney: 8.4 x 3.8 x 3.6 cm Left Kidney: 12.2 x 4.0 x 4.3 cm Right Kidney: dense echogenic focus lower pole =0.6cm Left Kidney: no evidence of hydronephrosis Bladder: appears wnl splenomegaly, spleen = 19.2cm IMPRESSION: 1. There may be a shadowing renal stone inferior pole right kidney. No obstruction is evident. 2. Marked splenomegaly.
[2020-04-20] MEDS: AZITHROMYCIN 500 MG TAB PO SCH (17:40)
[2020-04-20] MEDS: SENNOSIDES-DOCUSATE SODIUM 1 EACH TAB PO SCH (20:05)
[2020-04-20] MEDS: PRAVASTATIN SODIUM 40 MG TAB PO SCH (20:05)
[2020-04-20] MEDS: PANTOPRAZOLE 40 MG TABLET PO SCH (20:05)
[2020-04-21] MEDS: ACETAMINOPHEN TAB 325 MG TAB PO PRN (00:07)
[2020-04-21] MEDS: HYDROcodone/APAP 5-325MG 1 EACH TAB PO PRN ×2 (04:33→13:46)
[2020-04-21] MEDS: IPRATROPIUM-ALBUTEROL 3 ML NEB INHALATION SCH ×3 (07:30→15:41)
[2020-04-21] MEDS: SYMBICORT 160-4.5 MCG INHALER INHALATION SCH (07:30)
[2020-04-21] MEDS: ASPIRIN 81 MG PO SCH (08:14)
[2020-04-21] MEDS: CLOPIDOGREL 75 MG TAB PO SCH (08:14)
[2020-04-21] MEDS: CHOLECALCIFEROL 400 UNIT TAB PO SCH (08:14)
[2020-04-21] MEDS: carvediloL 12.5 MG TAB PO SCH (08:14)
[2020-04-21] MEDS: AZITHROMYCIN 500 MG TAB PO SCH (08:14)
[2020-04-21] MEDS: IRON PS CMPLX/VIT B12/FA 1 EACH CAP PO SCH (08:15)
[2020-04-21] MEDS: polyethylene glycoL 3350 17 GM POWD.PACK PO SCH (08:16)
--- NOTE | 2020-04-21 09:19 | XR ---
EXAMINATION TYPE: XR chest 1V portable DATE OF EXAM: 04/21/2020 COMPARISON: 04/19/2020 HISTORY: Hypoxia TECHNIQUE: Single frontal view of the chest is obtained. FINDINGS: Hyperinflation suggests COPD. Atherosclerotic change aorta. Arthropathy of the shoulders. No overt failure. No pneumothorax. Bibasilar subsegmental consolidation. IMPRESSION: 1. COPD with bibasilar areas of subsegmental atelectasis or early infiltrate.
[2020-04-21] MEDS: SODIUM FERRIC GLUCONAT-SUCROSE 125 MG in SODIUM CHLORIDE 0.9% 100 ML IVPB SCH (09:34)
[2020-04-21 10:07] LABS: Hepatitis A Antibody IgM Non-Reactive (Non-Reactive); Hepatitis B Core IgM Non-Reactive (Non-Reactive); Hepatitis B Surface Antigen Non-Reactive (Non-Reactive); Hepatitis C IgG Antibody Non-Reactive (Non-Reactive); Protein, Total 5.2 g/dL (6.2-8.2)
--- NOTE | 2020-04-21 10:57 | P.PN ---
Subjective Progress Note Date: 04/21/20 Principal diagnosis: Status post right hip hemiarthroplasty Patient was evaluated today at bedside, he is resting in the hospital chair. He is receiving an iron infusion at this time. He continues to utilize the home exercises. Patient denies any acute chest pain, change in shortness of breath, nausea vomiting, fever or chills, lower extremity paresthesias. Objective - Vital Signs Vital signs: Vital Signs Temp 97.4 F L 04/21/20 07:11 Pulse 90 04/21/20 07:45 Resp 17 04/21/20 07:11 BP 154/74 04/21/20 07:11 Pulse Ox 94 L 04/21/20 07:11 Intake & Output 04/20/20 04/21/20 04/21/20 18:59 06:59 18:59 Intake Total 100 Balance 100 Intake: Oral 100 Other: Voiding Method Indwelling Catheter Indwelling Catheter Indwelling Catheter # Voids 3 - Exam Right lower extremity: Optifoam dressing is in good position and condition. There is minimal soft tissue swelling and ecchymosis surrounding the medial and lateral aspects of the incision. Calf is soft, no tenderness with palpation. Plantar flexion, dorsiflexion, EHL, FHL are intact. Sensory exam to light touch throughout the extremity is intact, dorsal pedis pulses 2+. - Labs CBC & Chem 7: 04/20/20 06:48 04/20/20 06:48 Labs: Abnormal Lab Results - Last 24 Hours (Table) 04/20/20 04/21/20 Range/Units 06:48 06:13 Chloride 110 H (96-109) mmol/L BUN 35.0 H (9.0-27.0) mg/dL Creatinine 2.3 H (0.6-1.5) mg/dL Est GFR (CKD-EPI)AfAm 30.2 L (60.0-200.0) Est GFR (CKD-EPI)NonAf 26.0 L (60.0-200.0) Calcium 8.1 L (8.7-10.3) mg/dL Total Protein (PEP) 5.2 L (6.2-8.2) g/dL Assessment and Plan Assessment: Status post right hip hemiarthroplasty Acute blood loss anemia, expected surgical outcome Other medical comorbidities Plan: Pain control, continue current regimen DVT prophylaxis, continue subcu medication Continue with exercises along with physical therapy Posterior hip precautions were discussed with patient at bedside Internal medicine, nephrology and cardiology recommendations Plan is for discharge to rehab in stable Time with Patient: Less than 30
[2020-04-21 11:11] LABS: African American GFR (CKD) 35.7 (60.0-200.0); Anion Gap 8.8 mmol/L (4.00-12.00); BUN/Creat Ratio 14.5 Ratio (12.00-20.00); Calcium 8.3 mg/dL (8.7-10.3); Carbon Dioxide 23.2 mmol/L (21.6-31.8); Non-African American GFR(CKD) 30.8 (60.0-200.0); Potassium 3.9 mmol/L (3.5-5.5)
--- NOTE | 2020-04-21 12:15 | P.DS ---
Providers Date of admission: 04/16/20 13:32 Expected date of discharge: 04/21/20 Attending physician: Ronal Hays Consults: 04/16/20 13:32 Consult Physician Urgent Consulting Provider: Ronal Hays Consult Reason/Comments: Medical management, surgical clearance Do you want consulting provider notified?: Yes 04/17/20 10:48 Consult Physician Urgent Consulting Provider: Elena Ricci Consult Reason/Comments: Cardiology clearance Do you want consulting provider notified?: Yes 04/19/20 10:32 Consult Physician Routine Consulting Provider: Harshil Chapin Consult Reason/Comments: arf Do you want consulting provider notified?: Yes Primary care physician: [facility] Course: Final Diagnoses Assessment and Plan Assessment: (1) S/P hip hemiarthroplasty Narrative/Plan: RIGHT Current Visit: Yes Status: Acute Code(s): Z96.649 - PRESENCE OF UNSPECIFIED ARTIFICIAL HIP JOINT SNOMED Code(s): 014122181 (2) Fracture of femoral neck, right, closed Current Visit: Yes Status: Acute Code(s): S72.001A - FRACTURE OF UNSP PART OF NECK OF RIGHT FEMUR, INIT SNOMED Code(s): 621490974 (3) H/O myocardial infarction, greater than 8 weeks Current Visit: Yes Status: Acute Code(s): I25.2 - OLD MYOCARDIAL INFARCTION SNOMED Code(s): 0282176 (4) Coronary artery disease Current Visit: Yes Status: Acute Code(s): I25.10 - ATHSCL HEART DISEASE OF [place] CORONARY ARTERY W/O ANG PCTRS SNOMED Code(s): 78517590 (5) H/O heart artery stent Current Visit: Yes Status: Acute Code(s): Z95.5 - PRESENCE OF CORONARY ANGIOPLASTY IMPLANT AND GRAFT SNOMED Code(s): 720993179 (6) Essential (primary) hypertension Current Visit: Yes Status: Acute Code(s): I10 - ESSENTIAL (PRIMARY) HYPERTENSION SNOMED Code(s): 99811034 (7) Leukocytosis Current Visit: Yes Status: Acute Code(s): D72.829 - ELEVATED WHITE BLOOD CELL COUNT, UNSPECIFIED SNOMED Code(s): 768930464 (8) acute on CKD (chronic kidney disease), stage III Current Visit: Yes Status: Acute Code(s): N18.30 - CHRONIC KIDNEY DISEASE, STAGE 3 UNSPECIFIED SNOMED Code(s): 700782782 (9) H/O prostate cancer Current Visit: Yes Status: Acute Code(s): Z85.46 - PERSONAL HISTORY OF MALIGNANT NEOPLASM OF PROSTATE SNOMED Code(s): 005351275 (10) COPD (chronic obstructive pulmonary disease) Current Visit: Yes Status: Acute Code(s): J44.9 - CHRONIC OBSTRUCTIVE PULMONARY DISEASE, UNSPECIFIED SNOMED Code(s): 97572130 (11) acute blood loss anemia, postop, expected outcome and iron deficient (12) acute hypoxic respiratory failure secondary to the above. Hospital course:Sergey is a 80-year-old white male well-known to the practice and treats regularly my partner. He had fallen at home on ice on 04/16/2019 patient he landed on his right hip. He denied any head injuries. It is significant pain and trouble walking he came emergency room, was found to have a closed fracture of the femoral neck on the right side. He is admitted to orthopedic surgery. They're planning ORIF of the right hip soon. Sergey denies any chest pains, pressures, shortness of breath this time. He underwent a left heart catheterization and angioplasty with PTCA and stenting of the proximal left anterior descending coronary artery with drug-eluting stent on 02/04/2020. He has a history of hypertension, coronary disease, COPD, chronic renal failure, stones, and a possible non-ST elevated microinfarction in January as well. Emergency room labs show a CBC with leukocytosis with left shift and his hemoglobin is 12.8 with microcytosis. Blood chemistries show a GFR of 32. Her analysis was normal. 04/18/2020: Patient is status post right hip hemiarthroplasty for a right hip femoral neck fracture closed, displaced, complete. Cardiology had seen him and cleared him with his history of recent myocardial infarction and stenting. They had his Plavix held and recommended continuing his baby aspirin. Postoperatively he was slightly hypoxic and his oxygen needs were up to 8 L/m via nasal cannula. Currently they're at 4 L/m with a pulse oximetry 92%. Blood pressures remained slightly elevated but stable. Heart rate has remained stable and respiratory rate normal. He is afebrile. White count remained slightly elevated and his hemoglobin is dropped from 12.8-10.1, she is expected postoperatively. He remains microcytic. Iron studies are consistent with iron deficiency anemia. Kidney functions a worsened with GFR dropping from 32-29 at this time. A hemoglobin A1c to evaluate his elevated glucoses 4.8, which is normal. He denies any chest pains pressures. He does complain of some shortness of breath. He is in good spirits. He is not moving very much this time, per nursing staff. PT/OT will see him tomorrow. Orthopedics are discussed home ca re with his . He and I briefly discussed the ECF should he not recover adequately to go home. 04/19/20 sitting up in chair, needs his reading glasses. Pain controlled. Denies chest pain, shortness of breath. Denies nausea vomiting or diarrhea. Passing flatus. Renal function continues trending up. Hypoxic, requiring 3 L nasal cannula to maintain O2 sats in the 90s. Mild tachycardia. 04/20/20 chest x-ray reporting COPD, bibasilar atelectasis or early infiltrates. Incentive spirometer up to 1500. Oxygen requirements increased,requiring 4 L nasal cannula to maintain O2 sats in the 90s. Empiric Rocephin and Zithromax initiated. Hemoglobin continuing to trend down currently 8.7, receiving second IV bag of venofer. BUN 35, creatinine 2.3. Afebrile, WBC 11.3. Denies chest pain, palpitations. Pain controlled. Physical therapy recommending subacute rehab at discharge. Significant clinical improvement. Patient will be discharged today to [facility] subacute rehab in a stable condition with guarded prognosis. The impression and plan of care has been dictated as directed. : I performed a history and examination of this patient, discussed the same with the dictator. I agree with the dictator's note ,documented as a scribe. Any additional findings or plans will be noted. Patient Condition at Discharge: Stable Plan - Discharge Summary Discharge Rx Participant: Yes New Discharge Prescriptions: New Cefuroxime Axetil [Ceftin] 500 mg PO BID 5 Days #10 tab Azithromycin [Zithromax] 500 mg PO DAILY 1 Days #1 tab carvediloL [Coreg*] 12.5 mg PO BID-W/MEALS tab Ipratropium-Albuterol Nebulize [Duoneb 0.5 mg-3 mg/3 ml Soln] 3 ml INHALATION RT-QID ml Ipratropium-Albuterol Nebulize [Duoneb 0.5 mg-3 mg/3 ml Soln] 3 ml INHALATION Q4H PRN ml PRN Reason: Shortness Of Breath Or Wheezing Iron Ps Cmplx/Vit B12/FA [Niferex-150 Forte] 1 each PO DAILY cap Pravastatin Sodium [Pravachol] 40 mg PO HS tab Sennosides-Docusate Sodium [Senokot-S] 2 each PO HS tab Budesonide-Formot 160-4.5 Mcg [Symbicort 160-4.5 Mcg Inhaler] 2 puff INHALATION RT-BID puff Acetaminophen Tab [Tylenol] 650 mg PO Q6HR PRN tab PRN Reason: Mild Pain Or Fever > 100.5 LORazepam [Ativan] 1 mg PO BID PRN 3 Days #6 tab PRN Reason: Anxiety Continue Pantoprazole Sodium [Protonix] 40 mg PO HS Cholecalciferol [Vitamin D3 (25 Mcg = 1000 Iu)] 1,000 unit PO HS Vit C/E/Zn/Coppr/Lutein/Zeaxan [Preservision Areds 2 Softgel] 1 cap PO BID calcium polycarbophiL [Fibercon] 625 mg PO HS Aspirin 81 mg PO DAILY #30 chew Clopidogrel [Plavix] 75 mg PO DAILY Furosemide [Lasix] 20 mg PO DAILY@1200 Discontinued LORazepam [Ativan] 0.5 mg PO BID Carvedilol [Coreg] 12.5 mg PO BID Pravastatin Sodium [Pravachol] 40 mg PO HS Discharge Medication List Pantoprazole Sodium [Protonix] 40 mg PO HS 03/08/16 [History] Cholecalciferol [Vitamin D3 (25 Mcg = 1000 Iu)] 1,000 unit PO HS 12/12/18 [History] Vit C/E/Zn/Coppr/Lutein/Zeaxan [Preservision Areds 2 Softgel] 1 cap PO BID 0 12/12/18 [History] calcium polycarbophiL [Fibercon] 625 mg PO HS 12/12/18 [History] Aspirin 81 mg PO DAILY #30 chew 02/05/20 [Rx] Clopidogrel [Plavix] 75 mg PO DAILY 04/16/20 [History] Furosemide [Lasix] 20 mg PO DAILY@1200 04/16/20 [History] Acetaminophen Tab [Tylenol] 650 mg PO Q6HR PRN tab 04/21/20 [Rx] Azithromycin [Zithromax] 500 mg PO DAILY 1 Days #1 tab 04/21/20 [Rx] Budesonide-Formot 160-4.5 Mcg [Symbicort 160-4.5 Mcg Inhaler] 2 puff INHALATION RT-BID puff 04/21/20 [Rx] Cefuroxime Axetil [Ceftin] 500 mg PO BID 5 Days #10 tab 04/21/20 [Rx] Ipratropium-Albuterol Nebulize [Duoneb 0.5 mg-3 mg/3 ml Soln] 3 ml INHALATION Q4H PRN ml 04/21/20 [Rx] Ipratropium-Albuterol Nebulize [Duoneb 0.5 mg-3 mg/3 ml Soln] 3 ml INHALATION RT-QID ml 04/21/20 [Rx] Iron Ps Cmplx/Vit B12/FA [Niferex-150 Forte] 1 each PO DAILY cap 04/21/20 [Rx] LORazepam [Ativan] 1 mg PO BID PRN 3 Days #6 tab 04/21/20 [Rx] Pravastatin Sodium [Pravachol] 40 mg PO HS tab 04/21/20 [Rx] Sennosides-Docusate Sodium [Senokot-S] 2 each PO HS tab 04/21/20 [Rx] carvediloL [Coreg*] 12.5 mg PO BID-W/MEALS tab 04/21/20 [Rx] Follow up Appointment(s)/Referral(s): Barrington Goyal Jr, DO [Primary Care Provider] - 1-2 days [facility] [place], [NON-STAFF] - As Needed Harshil Chapin DO [STAFF PHYSICIAN] - 1 Week Activity/Diet/Wound Care/Special Instructions: Lynda [facility] Pain management as per orthopedic surgery CBC,bmp in 3 days
[2020-04-21 12:23] LABS: Anisocytosis Moderate; Basophils # (A) 0.1 k/uL (0-0.2); Basophils % (A) 1 %; Eosinophils # (A) 0.2 k/uL (0-0.7); Eosinophils % (A) 2 %; HCT 28.4 % (39.0-53.0); HGB 8.7 gm/dL (13.0-17.5); Hypochromasia Slight; Lymphocytes % (A) 9 %; MCH 25.8 pg (25.0-35.0); MCHC 30.7 g/dL (31.0-37.0); MCV 83.9 fL (80.0-100.0); Mean Platelet Volume 12.5; Microcytosis Slight; Monocytes # (A) 0.4 k/uL (0-1.0); Monocytes % (A) 4 %; Neutrophils # (A) 8.6 k/uL (1.3-7.7); Neutrophils % (A) 82 %; Platelet Count 255 k/uL (150-450); Poikilocytosis Slight; RBC 3.39 m/uL (4.30-5.90); RDW 20.3 % (11.5-15.5); WBC 10.5 k/uL (3.8-10.6)
--- NOTE | 2020-04-21 12:27 | P.PN ---
Subjective Patient is seen in follow-up for acute kidney injury on chronic kidney disease. Renal function a little better today. Denies chest pain or shortness of breath. Oral intake is slowly improving. No vomiting or diarrhea. Blood pressure stable. Working with physical therapy. Vital signs are stable. General: The patient appeared well nourished and normally developed. HEENT: Head exam is unremarkable. Neck is without jugular venous distension. LUNGS: Breath sounds decreased. HEART: Rate and Rhythm are regular. ABDOMEN: Soft, nontender. EXTREMITITES: No edema. Objective - Vital Signs Vital signs: Vital Signs Temp 97.4 F L 04/21/20 07:11 Pulse 89 04/21/20 11:17 Resp 17 04/21/20 07:11 BP 154/74 04/21/20 07:11 Pulse Ox 94 L 04/21/20 07:11 Intake & Output 04/20/20 04/21/20 04/21/20 18:59 06:59 18:59 Intake Total 100 Balance 100 Intake: Oral 100 Other: Voiding Method Indwelling Catheter Indwelling Catheter Indwelling Catheter # Voids 3 - Labs CBC & Chem 7: 04/20/20 06:48 04/21/20 06:13 Labs: Abnormal Lab Results - Last 24 Hours (Table) 04/20/20 04/21/20 04/21/20 Range/Units 06:48 06:13 06:13 Chloride 110 H (96-109) mmol/L BUN 35.0 H 29.0 H (9.0-27.0) mg/dL Creatinine 2.3 H 2.0 H (0.6-1.5) mg/dL Est GFR (CKD-EPI)AfAm 30.2 L 35.7 L (60.0-200.0) Est GFR (CKD-EPI)NonAf 26.0 L 30.8 L (60.0-200.0) Glucose 113 H (70-110) mg/dL Calcium 8.1 L 8.3 L (8.7-10.3) mg/dL Total Protein (PEP) 5.2 L (6.2-8.2) g/dL Assessment and Plan Plan: Assessment: 1. Acute kidney injury mostly prerenal from diuretics and poor intake. Creatinine 2.0 today. Renal ultrasound revealed small sized right kidney. No hydronephrosis was noted. 2. Chronic kidney disease stage IIIB with baseline creatinine in the range of 1.5-2. Etiology is likely nephrosclerosis. 3. Acute blood loss anemia status post hip surgery. Iron deficiency noted as well. 4. Right hip fracture status post hemiarthroplasty this admission. 5. Hypertension with chronic kidney disease. Stable. 6. Proteinuria. UPC 1.02 g. rule out GN. Plan: Encouraged oral intake. Continue to hold Lasix. IV iron 3 doses. Third dose today. Avoid nephrotoxins. Continue to monitor renal function and urine output. Follow-up serologies. Anticipate discharge soon. Follow up outpatient in 1-2 weeks.
[2020-04-21] MEDS: LORazepam 0.5 MG TAB PO PRN (12:30)
[2020-04-21 12:54] LABS: Ovalocytes Present; Polychromasia Present; Tear Drop Cells Present
--- NOTE | 2020-04-21 13:26 | P.PN ---
Subjective Progress Note Date: 04/21/20 CHIEF COMPLAINT: Cardiology clearance HISTORY OF PRESENT ILLNESS: 80-year-old male who underwent right hip hemiarthroplasty on 04/17/2020. Patient examined this morning at the bedside. He denies chest pain or pressure. He denies shortness of breath. Blood pre ssure 154/74. Heart rate in the 90s. He is on 3 L nasal cannula with oxygen saturations greater then 92%. He is afebrile. Hemoglobin 8.7. PHYSICAL EXAM: VITAL SIGNS: Reviewed. GENERAL: Well-developed in no acute distress. NECK: Supple. No JVD or thyromegaly LUNGS: Respirations even and unlabored. Lungs essentially clear to auscultation bilaterally. HEART: Regular rate and rhythm. S1 and S2 heard. EXTREMITIES: No clubbing or cyanosis. Peripheral pulses intact. No lower extremity edema ASSESSMENT: Right hip fracture, status post fall Status post right hip hemiarthroplasty Coronary artery disease with recent stent to the LAD, January 2020 Hypertension Chronic kidney disease PLAN: Continue current cardiac medications including aspirin, Plavix, and Coreg Patient is stable from a cardiac perspective Patient to follow up outpatient with Dr. Apple Nurse practitioner note has been reviewed by physician. Signing provider agrees with the documented findings, assessment, and plan of care. Objective - Vital Signs Vital signs: Vital Signs Temp 97.4 F L 04/21/20 07:11 Pulse 90 04/21/20 07:45 Resp 17 04/21/20 07:11 BP 154/74 04/21/20 07:11 Pulse Ox 94 L 04/21/20 07:11 Intake & Output 04/20/20 04/21/20 04/21/20 18:59 06:59 18:59 Intake Total 100 Balance 100 Intake: Oral 100 Other: Voiding Method Indwelling Catheter Indwelling Catheter Indwelling Catheter # Voids 3 - Labs CBC & Chem 7: 04/21/20 06:13 04/21/20 06:13 Labs: Abnormal Lab Results - Last 24 Hours (Table) 04/20/20 04/21/20 Range/Units 06:48 06:13 Chloride 110 H (96-109) mmol/L BUN 35.0 H (9.0-27.0) mg/dL Creatinine 2.3 H (0.6-1.5) mg/dL Est GFR (CKD-EPI)AfAm 30.2 L (60.0-200.0) Est GFR (CKD-EPI)NonAf 26.0 L (60.0-200.0) Calcium 8.1 L (8.7-10.3) mg/dL Total Protein (PEP) 5.2 L (6.2-8.2) g/dL
[2020-04-21 13:58] LABS: DNA Double-Stranded POSITIVE (NEGATIVE)
[2020-04-21 16:02] VITALS: BP 146/75; PULSE 95; RESP 18; TEMP 97.5
[2020-04-22 14:34] LABS: Albumin 2.74 g/dL (3.80-4.90); Gamma Globulin 0.72 g/dL (0.70-1.50)
[2020-04-22 15:30] LABS: C-ANCA <1:20 Titer (<1:20)
[2020-04-23 13:34] LABS: ANA Pattern Homogeneous
== END 2020-04-21 16:27 | DRG 521 ==
LOC: EC 12:22 → 4SSUR 13:32
PROVIDERS: ADMIT Family Medicine; ATTEND Family Medicine
PROC: 0SRR0JZ Replacement of Right Hip Joint, Femoral Surface with Synthetic Substitute, Open Approach (ICD-10-PCS; principal; 2020-04-17 12:00)
DX: S72.001A Fracture of unspecified part of neck of right femur, initial encounter for closed fracture (principal); J96.01 Acute respiratory failure with hypoxia; I50.32 Chronic diastolic (congestive) heart failure; D62 Acute posthemorrhagic anemia; N17.9 Acute kidney failure, unspecified; J98.11 Atelectasis; J84.10 Pulmonary fibrosis, unspecified; J44.9 Chronic obstructive pulmonary disease, unspecified; I25.10 Atherosclerotic heart disease of native coronary artery without angina pectoris; I12.9 Hypertensive chronic kidney disease with stage 1 through stage 4 chronic kidney disease, or unspecified chronic kidney disease; N18.32 Chronic kidney disease, stage 3b; T50.2X5A Adverse effect of carbonic-anhydrase inhibitors, benzothiadiazides and other diuretics, initial encounter; E78.5 Hyperlipidemia, unspecified; D50.9 Iron deficiency anemia, unspecified; E87.6 Hypokalemia; F32.9 Major depressive disorder, single episode, unspecified; F41.9 Anxiety disorder, unspecified; H91.90 Unspecified hearing loss, unspecified ear; W00.0XXA Fall on same level due to ice and snow, initial encounter; Z95.5 Presence of coronary angioplasty implant and graft; Z91.81 History of falling; Z87.891 Personal history of nicotine dependence; Z86.711 Personal history of pulmonary embolism; Z85.828 Personal history of other malignant neoplasm of skin; Z85.46 Personal history of malignant neoplasm of prostate; Z80.8 Family history of malignant neoplasm of other organs or systems; Z80.1 Family history of malignant neoplasm of trachea, bronchus and lung; Z79.899 Other long term (current) drug therapy; Z79.82 Long term (current) use of aspirin; Z79.02 Long term (current) use of antithrombotics/antiplatelets; Z90.49 Acquired absence of other specified parts of digestive tract; Z98.890 Other specified postprocedural states; Z98.42 Cataract extraction status, left eye; Z98.41 Cataract extraction status, right eye; Z82.49 Family history of ischemic heart disease and other diseases of the circulatory system; I25.2 Old myocardial infarction
CPT/HCPCS: 36415; 71045; 73501; 73502; 76770; 80048; 80053; 80074; 81001; 82570; 82728; 83036; 83540; 83550; 83735; 84156; 84165; 85025; 85027; 85610; 85730; 86038; 86039; 86160; 86162; 86225; 86255; 86334; 87070; 88305; 88311; 93005; 94640; 94760; 96374; 96375; 99284

== ENCOUNTER → 2020-06-16 | Outpatient (CLI) | payer MEDICARE ==
--- NOTE | 2020-06-16 14:58 | US ---
EXAMINATION TYPE: US venous doppler duplex LE RT DATE OF EXAM: 06/16/2020 11:10 AM COMPARISON: NONE CLINICAL HISTORY: 80-year-old male M79.661 Pain in right lower leg, R22.41 Swelling. Hip surgery 2 mo nths ago. Now has pain/soreness RLE SIDE PERFORMED: Right TECHNIQUE: The lower extremity deep venous system is examined utilizing real time linear array sonog sergio with graded compression, doppler sonography and color-flow sonography. FINDINGS: VESSELS IMAGED: Common Femoral Vein Deep Femoral Vein Greater Saphenous Vein * Femoral Vein Popliteal Vein Small Saphenous Vein * Proximal Calf Veins (* superficial vessels) Right Leg: Negative for DVT IMPRESSION: No evidence for DVT within the right lower extremity imaged from the groin to the upper calf.
== END ==
LOC: RADUSWWP 10:43
PROVIDERS: ATTEND Orthopaedic Surgery
DX: R22.41 Localized swelling, mass and lump, right lower limb (principal); M79.661 Pain in right lower leg

== ENCOUNTER 2020-09-16 15:27 | Inpatient (IN) | payer MEDICARE ==
--- NOTE | 2020-09-16 16:20 | XR ---
EXAMINATION TYPE: XR chest 2V DATE OF EXAM: 09/16/2020 COMPARISON: 04/21/2020 TECHNIQUE: PA and lateral views submitted. HISTORY: Shortness of breath FINDINGS: The lungs are clear and there is no pneumothorax, pleural effusion, or focal pneumonia. Atheroscler otic change aorta. Arthropathy of the shoulders. Hyperinflation. Heart size normal. Degenerative ochoa ges of the spine. IMPRESSION: 1. No acute process. Correlate for COPD.
[2020-09-16] MEDS ORDERED: IPRATROPIUM-ALBUTEROL 3 ML NEB INHALATION STA (17:35)
--- NOTE | 2020-09-16 17:41 | ED ---
SOB HPI - General Chief Complaint: Shortness of Breath Stated Complaint: SOB Time Seen by Provider: 09/16/20 17:19 Source: patient Mode of arrival: wheelchair Limitations: no limitations - History of Present Illness Initial Comments: This is a 80-year-old male with a history of CAD, PE remotely, primary fibrosis who presents emergency department for dyspnea. The patient states that the symptoms started yesterday. He states that the symptoms seem to happen intermittently and do not seem to be related to exertion however exertion does seem to make his breathing worse. He states that he does not have any orthopnea he has no associated chest pain, fever, chills, or cough. The patient does admit to chronic dizziness and lightheadedness however this is unchanged. Denies any lower extremity pain or swelling. does not currently anticoagulated however was recently placed on Brilinta yesterday and feels that this may have caused his symptoms. He was taken off of Plavix because he was having epigastric abdominal pain which she states is resolved. Pt did recently have a hip fracture in april and states he travelled to [place] last weekend. Otherwise the patient denies any other acute complaints. - Related Data Home Medications Medication Instructions Recorded Confirmed Pantoprazole Sodium [Protonix] 40 mg PO DAILY 03/08/16 09/16/20 Cholecalciferol [Vitamin D3 (25 1,000 unit PO HS 12/12/18 09/16/20 Mcg = 1000 Iu)] Vit C/E/Zn/Coppr/Lutein/Zeaxan 1 cap PO BID 12/12/18 09/16/20 [Preservision Areds 2 Softgel] calcium polycarbophiL [Fibercon] 625 mg PO HS 12/12/18 09/16/20 LORazepam [Ativan] 0.5 mg PO TID 09/16/20 09/16/20 Losartan [Cozaar] 25 mg PO DAILY 09/16/20 09/16/20 Ticagrelor [Brilinta] 60 mg PO BID 09/16/20 09/16/20 amLODIPine [Norvasc] 2.5 mg PO DAILY 09/16/20 09/16/20 Previous Rx's Medication Instructions Recorded Pravastatin Sodium [Pravachol] 40 mg PO HS tab 04/21/20 carvediloL [Coreg*] 12.5 mg PO BID-W/MEALS tab 04/21/20 Allergies Allergy/AdvReac Type Severity Reaction Status Date / Time alprazolam [From Xanax] AdvReac Unknown Verified 09/16/20 18:32 Review of Systems ROS Statement: Those systems with pertinent positive or pertinent negative responses have been documented in the HPI. ROS Other: All systems not noted in ROS Statement are negative. Past Medical History Past Medical History: Cancer, Chest Pain / Angina, COPD, GERD/Reflux, Hearing Disorder / Deafness, Hyperlipidemia, Hypertension, Myocardial Infarction ([place]), Osteoarthritis ([place]), Prostate Disorder, Pulmonary Embolus ([place]) Additional Past Medical History / Comment(s): Interstitial lung disease, pulmonary fibrosis, PE in 2011-pt cannot recall laterality, past home O2 use but none now, [place]-cannot tolerate Cpap, prostate cancer with radiation treatment, skin cancer with removals, nephrolithiasis, migraines, compression fracture low back, bilateral elbow fractures with surgery, PUD, jaundiced as a child, [place] bilaterally. "mild" [place] in january 2020. Last Myocardial Infarction Date:: January 2020 History of Any Multi-Drug Resistant Organisms: None Reported Past Surgical History: Appendectomy, Cholecystectomy, Heart Catheterization, Heart Catheterization With Stent, Hernia Repair, Joint Replacement, Orthopedic Surgery Additional Past Surgical History / Comment(s): Prostate biopsy, L hand partial amp of 2 fingers, L knee ACL repair, R knee arthroscopy, bilateral total elbow replacements per pt, bilateral cataract removals, L inguinal hernia repair, cardiac caths x 2, EGD, colonoscopy, skin cancer removals. Past Anesthesia/Blood Transfusion Reactions: No Reported Reaction Date of Last Stent Placement:: January 2020. Past Psychological History: Anxiety, Depression Smoking Status: Former smoker Past Alcohol Use History: None Reported Past Drug Use History: None Reported - Past Family History Brother(s) Family Medical History: Cancer Additional Family Medical History / Comment(s): ONE BROTHER HAD LUNG CA & ANOTHER HAD MELANOMA. Brother just recently last week. Mother Family Medical History: AICD/Pacemaker Father Family Medical History: No Reported History Sister(s) Family Medical History: No Reported History General Exam - General Exam Comments Initial Comments: Constitutional: Awake alert Appears comfortable Head: Normocephalic atraumatic Eyes: no conjunctival injection No scleral icterus EOMI Neck: No JVD Supple Heart: Regular rate rhythm normal S1-S2 no murmurs Lungs: Crackles at The lung bases bilaterally No wheezing No rales Abdomen: Soft nondistended nontender Extremities: Non edematous DP pulses intact Radial pulses intact Neuro: A&Ox3 No focal neurologic deficits Psych: Appropriate mood and affect Limitations: no limitations Course Vital Signs 09/16/20 09/16/20 09/16/20 15:50 17:55 17:59 Temperature 97.6 F Pulse Rate 86 78 Respiratory 20 20 Rate Blood Pressure 154/76 O2 Sat by Pulse 94 L Oximetry 09/16/20 09/16/20 09/16/20 18:12 18:22 19:15 Temperature Pulse Rate 78 78 Respiratory 20 Rate Blood Pressure 168/80 O2 Sat by Pulse 94 L 92 L Oximetry 09/16/20 09/16/20 09/16/20 19:46 20:13 21:04 Temperature Pulse Rate 83 82 80 Respiratory 18 18 18 Rate Blood Pressure 166/80 161/72 153/77 O2 Sat by Pulse 96 96 94 L Oximetry - Reevaluation(s) Reevaluation #1: EKG showing normal sinus rhythm with a rate of 76. No abnormal ST 7 changes or T-wave inversions. QTC is 4 and 11. Other intervals normal. No ectopy. 09/16/20 18:50 Medical Decision Making - Medical Decision Making This is a 80-year-old male who presented to emergency department for one day history of intermittent dyspnea. The patient was not hypoxic her. Be any respiratory distress arrival. EKG was unremarkable. Troponin was found to be slightly elevated. He did have some elevation back in January 2020 however nothing in between then and now. Unsure if this is his baseline. Patient denied complain of any chest pain however he does have a history of CAD and dyspnea could be an anginal equivalent. Patient also had recent travel and a history of PE in the past. D-dimer was slightly elevated. Dopplers were negative however patient may require a VQ scan. Due to the constellation of fin dings of going to admit the patient to hospital. Dr. Burdick except the patient for admission. - Lab Data Result diagrams: 09/16/20 17:58 09/16/20 18:01 Lab Results 09/16/20 09/16/20 09/16/20 Range/Units 17:58 18:01 18:01 WBC 9.0 (3.8-10.6) k/uL RBC 4.53 (4.30-5.90) m/uL Hgb 11.9 L (13.0-17.5) gm/dL Hct 36.2 L (39.0-53.0) % MCV 80.0 (80.0-100.0) fL MCH 26.3 (25.0-35.0) pg MCHC 32.9 (31.0-37.0) g/dL RDW 20.1 H (11.5-15.5) % Plt Count 278 (150-450) k/uL MPV 11.2 Neutrophils % 70 % Lymphocytes % 18 % Monocytes % 4 % Eosinophils % 2 % Basophils % 2 % Neutrophils # 6.3 (1.3-7.7) k/uL Lymphocytes # 1.6 (1.0-4.8) k/uL Monocytes # 0.4 (0-1.0) k/uL Eosinophils # 0.2 (0-0.7) k/uL Basophils # 0.2 (0-0.2) k/uL Poikilocytosis Moderate Anisocytosis Moderate Microcytosis Slight PT 11.3 (9.0-12.0) sec INR 1.1 (<1.2) APTT 25.0 (22.0-30.0) sec D-Dimer 0.64 H (<0.60) mg/L FEU Sodium (137-145) mmol/L Potassium (3.5-5.1) mmol/L Chloride (98-107) mmol/L Carbon Dioxide (22-30) mmol/L Anion Gap mmol/L BUN (9-20) mg/dL Creatinine (0.66-1.25) mg/dL Est GFR (CKD-EPI)AfAm (>60 ml/min/1.73 sqM) Est GFR (CKD-EPI)NonAf (>60 ml/min/1.73 sqM) Glucose (74-99) mg/dL Calcium (8.4-10.2) mg/dL Total Bilirubin (0.2-1.3) mg/dL AST (17-59) U/L ALT (4-49) U/L Alkaline Phosphatase (38-126) U/L Troponin I (0.000-0.034) ng/mL NT-Pro-B Natriuret Pep pg/mL Total Protein (6.3-8.2) g/dL Albumin (3.5-5.0) g/dL Lipase (23-300) U/L Urine Color Light Yellow Urine Appearance Clear (Clear) Urine pH 6.5 (5.0-8.0) Ur Specific [place] 1.008 (1.001-1.035) Urine Protein Trace H (Negative) Urine Glucose (UA) Negative (Negative) Urine Ketones Negative (Negative) Urine Blood Negative (Negative) Urine Nitrite Negative (Negative) Urine Bilirubin Negative (Negative) Urine Urobilinogen <2.0 (<2.0) mg/dL Ur Leukocyte Esterase Negative (Negative) 09/16/20 09/16/20 09/16/20 Range/Units 18:01 18:01 18:01 WBC (3.8-10.6) k/uL RBC (4.30-5.90) m/uL Hgb (13.0-17.5) gm/dL Hct (39.0-53.0) % MCV (80.0-100.0) fL MCH (25.0-35.0) pg MCHC (31.0-37.0) g/dL RDW (11.5-15.5) % Plt Count (150-450) k/uL MPV Neutrophils % % Lymphocytes % % Monocytes % % Eosinophils % % Basophils % % Neutrophils # (1.3-7.7) k/uL Lymphocytes # (1.0-4.8) k/uL Monocytes # (0-1.0) k/uL Eosinophils # (0-0.7) k/uL Basophils # (0-0.2) k/uL Poikilocytosis Anisocytosis Microcytosis PT (9.0-12.0) sec INR (<1.2) APTT (22.0-30.0) sec D-Dimer (<0.60) mg/L FEU Sodium 140 (137-145) mmol/L Potassium 4.7 (3.5-5.1) mmol/L Chloride 107 (98-107) mmol/L Carbon Dioxide 25 (22-30) mmol/L Anion Gap 8 mmol/L BUN 37 H (9-20) mg/dL Creatinine 2.43 H (0.66-1.25) mg/dL Est GFR (CKD-EPI)AfAm 28 (>60 ml/min/1.73 sqM) Est GFR (CKD-EPI)NonAf 24 (>60 ml/min/1.73 sqM) Glucose 91 (74-99) mg/dL Calcium 9.5 (8.4-10.2) mg/dL Total Bilirubin 1.7 H (0.2-1.3) mg/dL AST 37 (17-59) U/L ALT 28 (4-49) U/L Alkaline Phosphatase 156 H (38-126) U/L Troponin I 0.087 H* (0.000-0.034) ng/mL NT-Pro-B Natriuret Pep 2110 pg/mL Total Protein 7.1 (6.3-8.2) g/dL Albumin 4.4 (3.5-5.0) g/dL Lipase 78 (23-300) U/L Urine Color Urine Appearance (Clear) Urine pH (5.0-8.0) Ur Specific [place] (1.001-1.035) Urine Protein (Negative) Urine Glucose (UA) (Negative) Urine Ketones (Negative) Urine Blood (Negative) Urine Nitrite (Negative) Urine Bilirubin (Negative) Urine Urobilinogen (<2.0) mg/dL Ur Leukocyte Esterase (Negative) Disposition Clinical Impression: Acute dyspnea, Elevated troponin Disposition: ADMITTED IP TO THIS HOSP Condition: Stable
[2020-09-16 18:11] LABS: Anisocytosis Moderate; Basophils # (A) 0.2 k/uL (0-0.2); Basophils % (A) 2 %; Eosinophils # (A) 0.2 k/uL (0-0.7); Eosinophils % (A) 2 %; HCT 36.2 % (39.0-53.0); HGB 11.9 gm/dL (13.0-17.5); Lymphocytes # (A) 1.6 k/uL (1.0-4.8); Lymphocytes % (A) 18 %; MCH 26.3 pg (25.0-35.0); MCHC 32.9 g/dL (31.0-37.0); Mean Platelet Volume 11.2; Microcytosis Slight; Monocytes # (A) 0.4 k/uL (0-1.0); Monocytes % (A) 4 %; Neutrophils # (A) 6.3 k/uL (1.3-7.7); Neutrophils % (A) 70 %; Platelet Count 278 k/uL (150-450); Poikilocytosis Moderate; RBC 4.53 m/uL (4.30-5.90); RDW 20.1 % (11.5-15.5)
[2020-09-16 18:20] LABS: Albumin 4.4 g/dL (3.5-5.0); Calcium 9.5 mg/dL (8.4-10.2); Potassium 4.7 mmol/L (3.5-5.1); Total Bilirubin 1.7 mg/dL (0.2-1.3); Total Protein 7.1 g/dL (6.3-8.2)
[2020-09-16 18:35] LABS: INR 1.1 (<1.2); Prothrombin Time 11.3 sec (9.0-12.0)
[2020-09-16 18:39] LABS: D-Dimer 0.64 mg/L FEU (<0.60)
[2020-09-16 18:57] LABS: Appearance,Urine Clear (Clear); Bilirubin,Urine Negative (Negative); Blood,Urine Negative (Negative); Color,Urine Light Yellow; Glucose,Urine (UA) Negative (Negative); Ketones,Urine Negative (Negative); Leukocyte Esterase,Urine Negative (Negative); Nitrite,Urine Negative (Negative); PH, Urine 6.5 (5.0-8.0); Protein,Urine Trace (Negative); Specific Gravity,Urine 1.008 (1.001-1.035); Urobilinogen,Urine <2.0 mg/dL (<2.0)
[2020-09-16] MEDS ORDERED: LORazepam 1 MG TAB PO STA ×2 (20:02→20:18)
[2020-09-16] MEDS ORDERED: LORazepam 0.5 MG TAB PO STA (20:05)
--- NOTE | 2020-09-16 20:22 | US ---
EXAMINATION TYPE: US venous doppler duplex LE DATE OF EXAM: 09/16/2020 8:09 PM COMPARISON: US CLINICAL HISTORY: + d-dimer, dyspnea. + D-dimer, dyspnea. Hx bilateral knee surgery, right hip replac ement. Hx PE. SIDE PERFORMED: Bilateral TECHNIQUE: The lower extremity deep venous system is examined utilizing real time linear array sonog sergio with graded compression, doppler sonography and color-flow sonography. VESSELS IMAGED: Common Femoral Vein Deep Femoral Vein Greater Saphenous Vein * Femoral Vein Popliteal Vein Small Saphenous Vein * Proximal Calf Veins (* superficial vessels) Right left common femoral, superficial femoral, popliteal veins all compress normally and show no abn ormal luminal echoes. Waveforms are normal and spectral exam. Right Leg: No evidence of DVT in veins imaged at this time. Left Leg: No evidence of DVT in veins imaged at this time. IMPRESSION: No evident deep venous arthrosis at the level of the knees or central to the knees. Foll ow-up as indicated.
[2020-09-16] MEDS ORDERED: NALOXONE 0.4 MG/ML 1 ML VIAL IV PRN (20:27)
[2020-09-16] MEDS ORDERED: PRAVASTATIN SODIUM 40 MG TAB PO SCH (23:45)
[2020-09-16] MEDS ORDERED: HEPARIN SOD,PORK IN 0.45% NACL 25,000 UNIT in 0.45% NACL 1 250ML.BAG IV SCH (23:45)
[2020-09-16] MEDS ORDERED: HEPARIN SODIUM 1,000 UN/ML (10ML VL) IV PRN (23:50)
[2020-09-16] MEDS ORDERED: HEPARIN SODIUM 1,000 UN/ML (10ML VL) IV ONE (23:50)
[2020-09-17] MEDS: carvediloL 12.5 MG TAB PO SCH ×2 (06:51→18:07)
[2020-09-17] MEDS: PANTOPRAZOLE 40 MG TABLET PO SCH (06:51)
--- NOTE | 2020-09-17 08:47 | NM ---
EXAMINATION TYPE: NM pul perfusion DATE OF EXAM: 09/17/2020 COMPARISON: Chest x-ray from yesterday. HISTORY: Shortness of breath Following administration of 5.1 mCi Tc 99m MAA. Images obtained post injection. FINDINGS: Bilateral multifocal areas of diminished radiotracer uptake with moderate sized defects in the upper lungs bilaterally and scattered smaller defects. IMPRESSION: Nondiagnostic (low or intermediate probability)
[2020-09-17 09:17] LABS: INR 1.1 (<1.2); Prothrombin Time 11.5 sec (9.0-12.0)
[2020-09-17 09:36] LABS: Anisocytosis Slight; HGB 11.7 gm/dL (13.0-17.5); MCH 26.8 pg (25.0-35.0); MCHC 33.3 g/dL (31.0-37.0); MCV 80.3 fL (80.0-100.0); Mean Platelet Volume 10.8; Microcytosis Slight; Platelet Count 289 k/uL (150-450); Poikilocytosis Slight; RBC 4.36 m/uL (4.30-5.90); WBC 10.1 k/uL (3.8-10.6)
[2020-09-17 12:12] LABS: Band Neutrophils % 3 %; Lymphocytes # (M) 1.92 k/uL (1.0-4.8); Metamyelocytes % 3 %; Monocytes # (M) 0.51 k/uL (0-1.0); Myelocytes % 1 %; Neutrophils % (M) 65 %; Nucleated Red Blood Cells 0 /100 WBC (0-0); Total Cells Counted 200
[2020-09-17 12:14] LABS: Ovalocytes Present; Polychromasia Present; Tear Drop Cells Present
[2020-09-17] MEDS: ASPIRIN 81 MG PO SCH (12:32)
[2020-09-17] MEDS: SODIUM CHLORIDE 0.9% 1,000 ML IV SCH (12:33)
[2020-09-17] MEDS ORDERED: ONDANSETRON 4 MG/2 ML VIAL IVP PRN (13:22)
[2020-09-17] MEDS ORDERED: IPRATROPIUM-ALBUTEROL 3 ML NEB INHALATION PRN (13:23)
--- NOTE | 2020-09-17 13:43 | ECHOF ---
Referral Reason:abnormal troponins, LV function MEASUREMENTS -------- HEIGHT: 177.8 cm WEIGHT: 83.9 kg BP: IVSd: 0.9 cm (0.6 - 1.1) LVIDd: 5.1 cm (3.9 - 5.3) LVPWd: 1.2 cm (0.6 - 1.1) EDV(Teich): 122 ml IVSs: 2.0 cm LVIDs: 3.2 cm LVPWs: 1.7 cm %IVS Thck: 118 % ESV(Teich): 40 ml EF(Teich): 67 % %FS: 37 % SV(Teich): 82 ml LVOT Diam: 2.0 cm RVIDd: 3.1 cm (< 3.3) IVC: 20.10 mm Ao Diam: 3.6 cm (2.0 - 3.7) LA Diam: 2.8 cm (2.7 - 3.8) AV Cusp: 1.5 cm (1.5 - 2.6) EPSS: 1.0 cm MV E Neil: 0.83 m/s MV DecT: 153 ms MV Dec [place]: 5.4 m/s MV A Neil: 0.95 m/s MV E/A Ratio: 0.87 MV PHT: 44 ms MR Vmax: 4.33 m/s MR maxP.10 mmHg AV Vmax: 1.22 m/s AV maxP.95 mmHg TR Vmax: 2.54 m/s TR maxP.81 mmHg RAP: 15.00 mmHg RVSP: 40.81 mmHg MV EF SLOPE: 85.26 mm/s (70 - 150) MV EXCURSION: 15.27 mm (> 18.000) FINDINGS -------- This was a technically good study. The left ventricular size is normal. There is mild concentric left ventricular hypertrophy. Overa ll left ventricular systolic function is normal with, an EF between 55 - 60 %. The right ventricle is normal in size. The left atrial size is normal. The right atrial size is normal. Aortic valve is trileaflet and is mildly thickened. The mitral valve is normal. The mitral valve leaflets are mildly thickened. Mild mitral regurgita tion is present. The tricuspid valve appears structurally normal. Mild tricuspid regurgitation present. There is m ild pulmonary hypertension. The right ventricular systolic pressure, as measured by Doppler, is 40. 81mmHg. There is no pulmonic regurgitation present. The aortic root size is normal. The inferior vena cava is mildly dilated. There is no pericardial effusion. CONCLUSIONS -------- 1. The left ventricular size is normal. 2. There is mild concentric left ventricular hypertrophy. 3. Overall left ventricular systolic function is normal with, an EF between 55 - 60 %. 4. Aortic valve is trileaflet and is mildly thickened. 5. The mitral valve leaflets are mildly thickened. 6. Mild mitral regurgitation is present. 7. Mild tricuspid regurgitation present. 8. There is mild pulmonary hypertension. 9. The right ventricular systolic pressure, as measured by Doppler, is 40.81mmHg. 10. The inferior vena cava is mildly dilated. 11. There is no pericardial effusion. CASHIER CHECKER: Martha Cantrell RDCS
[2020-09-17] MEDS: amLODIPine 2.5 MG TAB PO SCH (13:54)
[2020-09-17] MEDS: VIT A,C & E-LUTEIN-MINERALS 1 EACH TAB PO SCH ×2 (13:54→20:53)
[2020-09-17] MEDS: LORazepam 0.5 MG TAB PO SCH ×2 (13:55→22:43)
[2020-09-17] MEDS ORDERED: CALCIUM CARBONATE 500 MG CHEWABLE PO PRN (14:33)
--- NOTE | 2020-09-17 14:40 | P.CRDCN ---
History of Present Illness Consult date: 09/17/20 History of present illness: HISTORY OF PRESENT ILLNESS: This is a 80-year-old male with a past medical history significant for hypertension, pulmonary fibrosis, chronic kidney disease, hyperlipidemia, and coronary artery disease with previous PCI to the LAD. Patient follows in the office with Dr. Apple. We have been asked to see the patient in consultation for abnormal troponins. Patient examined at the bedside. Patient states he was placed on Plavix last year after he had a stent placement. He states he had been tolerating this okay until the past few months when he states that it has been "tearing up my stomach". He states he would take omeprazole in the morning with his Plavix which seemed to help his symptoms and then he began having symptoms again in the afternoon and he was taking multiple meds. He states he called the office earlier this week and was switched to Brilinta. He states he took this Sunday morning and Sunday afternoon. He began having severe shortness of breath so he did not continue taking this medication and presented to the hospital for evaluation. Patient states he has not had any shortness of breath since stopping the Brilinta. EKG reveals sinus mechanism with no signs of acute ischemia. Chest xray no acute process. Correlate for COPD. VQ scan: Low or intermediate probability for PE Venous Doppler: Negative for DVT bilaterally Laboratory data: WBC 10.1. Hemoglobin 11.7. Platelet count 289. D-dimer 0.64. Sodium 140. Potassium 4.7. BUN 37. Creatinine 2.43. Troponin 0.087. 0.067. 0.059. BNP 2110. Current home cardiac medications include Brilinta 60mg BID, Coreg 12.5 mg twice a day, amlodipine 2.5 mg daily, pravastatin 40 mg daily, losartan 25 mg daily and aspirin 81 mg daily Most recent echocardiogram obtained in January 2020 revealed ejection fraction 50-55%, mild mitral regurgitation, and mild tricuspid regurgitation Cardiac catheterization history: January 2020 with PCI to the proximal LAD. REVIEW OF SYSTEMS: At the time of my exam: CONSTITUTIONAL: Denies fever or chills. HEENT: Denies blurred vision, vision changes, or eye pain. Denies hemoptysis CARDIOVASCULAR: Denies chest pain. Denies orthopnea. Denies PND. Denies palpitations RESPIRATORY: Denies shortness of breath. GASTROINTESTINAL: Denies abdominal pain. Denies nausea or vomiting. HEMATOLOGIC: Denies bleeding disorders. GENITOURINARY: Denies any blood in urine. SKIN: Denies pruitis. Denies rash. PHYSICAL EXAM: VITAL SIGNS: Reviewed. GENERAL: Well-developed in no acute distress. HEENT: Head is normocephalic. Pupils are equal, round. Sclerae anicteric. Mucous membranes of the mouth are moist. Neck supple. No JVD or thyromegaly LUNGS: Respirations even and unlabored. Lungs diminished bilaterally. HEART: Regular rate and rhythm. S1 and S2 heard. ABDOMEN: Soft. Nondistended. Nontender. EXTREMITIES: Normal range of motion. No clubbing or cyanosis. Peripheral pulses intact. No lower extremity edema NEUROLOGIC: Awake and alert. Oriented x 3. ASSESSMENT: Shortness of breath, s/p Brilinta Intolerance to Plavix Coronary artery disease with previous PCI to the LAD, January 2020 Abnormal troponins Hypertension Hyperlipidemia Chronic kidney disease Pulmonary fibrosis PLAN: Obtain 2D echo to assess cardiac structure and function Discontinue IV heparin Resume home cardiac medications Dr. Castillo to speak with patient regarding possibly taking plavix again as he is unable to tolerate Brilinta and Effient is not a good option due to patient age. Further recommendations pending patient course. Nurse practitioner note has been reviewed by physician. Signing provider agrees with the documented findings, assessment, and plan of care. Past Medical History Past Medical History: Cancer, Chest Pain / Angina, COPD, GERD/Reflux, Hearing Disorder / Deafness, Hyperlipidemia, Hypertension, Myocardial Infarction ([place]), Osteoarthritis (OA), Prostate Disorder, Pulmonary Embolus (PE) Additional Past Medical History / Comment(s): Interstitial lung disease, pulmonary fibrosis, PE in 2011-pt cannot recall laterality, past home O2 use but none now, [place]-cannot tolerate Cpap, prostate cancer with radiation treatment, skin cancer with removals, nephrolithiasis, migraines, compression fracture low back, bilateral elbow fractures with surgery, PUD, jaundiced as a child, [place] bilaterally. "mild" [place] in january 2020. Last Myocardial Infarction Date:: January 2020 History of Any Multi-Drug Resistant Organisms: None Reported Past Surgical History: Appendectomy, Cholecystectomy, Heart Catheterization, Heart Catheterization With Stent, Hernia Repair, Joint Replacement, Orthopedic Surgery Additional Past Surgical History / Comment(s): Prostate biopsy, L hand partial amp of 2 fingers, L knee ACL repair, R knee arthroscopy, bilateral total elbow replacements per pt, bilateral cataract removals, L inguinal hernia repair, cardiac caths x 2, EGD, colonoscopy, skin cancer removals. Past Anesthesia/Blood Transfusion Reactions: No Reported Reaction Date of Last Stent Placement:: January 2020. Past Psychological History: Anxiety, Depression Additional Psychological History / Comment(s): Pt resides with his spouse. He is independent. Smoking Status: Former smoker Past Alcohol Use History: None Reported Additional Past Alcohol Use History / Comment(s): Pt started smoking in 1960 and quit in 2004. Past Drug Use History: None Reported - Past Family History Brother(s) Family Medical History: Cancer Additional Family Medical History / Comment(s): ONE BROTHER HAD LUNG CA & ANOTHER HAD MELANOMA. Brother just recently last week. Mother Family Medical History: AICD/Pacemaker Father Family Medical History: No Reported History Sister(s) Family Medical History: No Reported History Medications and Allergies Home Medications Medication Instructions Recorded Confirmed Type Pantoprazole Sodium [Protonix] 40 mg PO DAILY 03/08/16 09/16/20 History Cholecalciferol [Vitamin D3 (25 1,000 unit PO HS 12/12/18 09/16/20 History Mcg = 1000 Iu)] Vit C/E/Zn/Coppr/Lutein/Zeaxan 1 cap PO BID 12/12/18 09/16/20 History [Preservision Areds 2 Softgel] calcium polycarbophiL [Fibercon] 625 mg PO HS 12/12/18 09/16/20 History Pravastatin Sodium [Pravachol] 40 mg PO HS tab 04/21/20 09/16/20 Rx carvediloL [Coreg*] 12.5 mg PO BID-W/MEALS tab 04/21/20 09/16/20 Rx LORazepam [Ativan] 0.5 mg PO TID 09/16/20 09/16/20 History Losartan [Cozaar] 25 mg PO DAILY 09/16/20 09/16/20 History Ticagrelor [Brilinta] 60 mg PO BID 09/16/20 09/16/20 History amLODIPine [Norvasc] 2.5 mg PO DAILY 09/16/20 09/16/20 History Allergies Allergy/AdvReac Type Severity Reaction Status Date / Time alprazolam [From Xanax] AdvReac Unknown Verified 09/16/20 18:32 Physical Exam Vitals: Vital Signs Temp Pulse Pulse Resp BP BP Pulse Ox 09/17/20 08:00 97.8 F 68 18 157/69 95 09/17/20 04:00 97.8 F 74 18 146/58 94 L 09/17/20 00:00 98.5 F 83 20 157/70 93 L 09/16/20 22:39 97.6 F 80 76 18 153/77 144/61 94 L 09/16/20 21:04 80 18 153/77 94 L 09/16/20 20:13 82 18 161/72 96 09/16/20 19:46 83 18 166/80 96 09/16/20 19:15 92 L 09/16/20 18:22 78 20 168/80 94 L 09/16/20 18:12 78 09/16/20 17:59 78 09/16/20 17:55 20 09/16/20 15:50 97.6 F 86 20 154/76 94 L Intake and Output 09/16/20 09/17/20 09/17/20 22:59 06:59 14:59 Intake Total 0 Output Total 470 Balance -470 0 Intake: Oral 0 Output: Urine 470 Other: Voiding Method Urinal # Voids 1 Weight 85.275 kg 84.3 kg Results 09/17/20 08:33 09/16/20 18:01 Cardiac Enzymes 09/16/20 09/16/20 09/16/20 Range/Units 18:01 18:01 21:35 AST 37 (17-59) U/L Troponin I 0.087 H* 0.067 H* (0.000-0.034) ng/mL 09/17/20 Range/Units 00:03 AST (17-59) U/L Troponin I 0.059 H* (0.000-0.034) ng/mL Coagulation 09/16/20 09/17/20 Range/Units 18:01 08:33 PT 11.3 11.5 (9.0-12.0) sec APTT 25.0 33.0 H (22.0-30.0) sec CBC 09/16/20 09/17/20 Range/Units 17:58 08:33 WBC 9.0 10.1 (3.8-10.6) k/uL RBC 4.53 4.36 (4.30-5.90) m/uL Hgb 11.9 L 11.7 L (13.0-17.5) gm/dL Hct 36.2 L 35.0 L (39.0-53.0) % Plt Count 278 289 (150-450) k/uL Comprehensive Metabolic Panel 09/16/20 Range/Units 18:01 Sodium 140 (137-145) mmol/L Potassium 4.7 (3.5-5.1) mmol/L Chloride 107 (98-107) mmol/L Carbon Dioxide 25 (22-30) mmol/L BUN 37 H (9-20) mg/dL Creatinine 2.43 H (0.66-1.25) mg/dL Glucose 91 (74-99) mg/dL Calcium 9.5 (8.4-10.2) mg/dL AST 37 (17-59) U/L ALT 28 (4-49) U/L Alkaline Phosphatase 156 H (38-126) U/L Total Protein 7.1 (6.3-8.2) g/dL Albumin 4.4 (3.5-5.0) g/dL Current Medications Generic Name Dose Route Start Last Admin Trade Name Freq PRN Reason Stop Dose Admin Aspirin 81 mg 09/17/20 09:45 Aspirin 81 Mg PO DAILY [facility] Carvedilol 12.5 mg 09/17/20 07:30 09/17/20 06:51 Carvedilol 12.5 Mg Tab PO 12.5 mg BID-W/MEALS [facility] Administration Heparin Sodium (Porcine) 0 unit 09/16/20 23:50 Heparin Sodium 1,000 Un/Ml (10ml Vl) IV PER PROTOCOL PRN Low PTT Protocol Heparin Sodium/Sodium Chloride 250 mls @ 10 mls/hr 09/16/20 23:45 09/17/20 00:34 25,000 unit/ Sodium Chloride IV 11.727 units/kg/hr .Q24H JOSE MANUEL 10 mls/hr Administration Protocol 11.727 UNITS/KG/HR Sodium Chloride 1,000 mls @ 60 mls/hr 09/17/20 11:00 Saline 0.9% IV .[id number] [facility] Naloxone HCl 0.2 mg 09/16/20 20:27 Naloxone 0.4 Mg/Ml 1 Ml Vial IV Q2M PRN Opioid Reversal Pantoprazole Sodium 40 mg 09/17/20 07:30 09/17/20 06:51 Pantoprazole 40 Mg Tablet PO 40 mg [id number] JOSE MANUEL Administration Pravastatin Sodium 40 mg 09/16/20 23:45 09/17/20 00:35 Pravastatin Sodium 40 Mg Tab PO 40 mg HS JOSE MANUEL Administration Intake and Output 09/16/20 09/17/20 09/17/20 22:59 06:59 14:59 Intake Total 0 Output Total 470 Balance -470 0 Intake: Oral 0 Output: Urine 470 Other: Voiding Method Urinal # Voids 1 Weight 85.275 kg 84.3 kg 09/17/20 08:33 09/16/20 18:01
[2020-09-17] MEDS ORDERED: PRASUGREL 10 MG TAB PO SCH (15:00)
[2020-09-17] MEDS: PRASUGREL 10 MG TAB PO SCH (15:48)
[2020-09-17] MEDS: SYMBICORT 160-4.5 MCG INHALER INHALATION SCH ×2 (16:01→19:36)
[2020-09-17] MEDS: IPRATROPIUM-ALBUTEROL 3 ML NEB INHALATION SCH ×3 (16:01→19:36)
--- NOTE | 2020-09-17 19:15 | P.HPIM ---
History of Present Illness H&P Date: 09/17/20 Chief Complaint: Patient develops shortness of breath with first doses of br ilinta Mr. Teixeira is a 79-year-old male well-known to my practice with a long-standing history of coronary artery disease chronic obstructive pulmonary disease PE pulmonary fibrosis presents to the emergency room for dyspnea. Symptoms began yesterday. States they happened intermittently does not seem to be related to exertion on exertion by the breathing worse symptoms began almost or in accor dance with stopping Plavix and switching to Brilinta. Patient denies orthopnea denies associated chest pain fever chills or cough. Patient's admitting to intermittent chronic dizziness lightheadedness although this is not new and is unchanged patient had initially stopped his anticoagulation Plavix because it was giving him an upset stomach was recently placed on Brilinta and feels this may have caused his symptoms as stated before patient was having significant epigastric abdominal discomfort with Plavix patient recently admitted for hip fracture April travel to [place] last weekend otherwise no new complaints Review of Systems Constitutional: Reports as per HPI Ears, nose, mouth and throat: Reports as per HPI Cardiovascular: Reports as per HPI, Reports dyspnea on exertion Respiratory: Reports dyspnea (Apparently associated with Brilinta) Gastrointestinal: Reports abdominal pain (Associated with Plavix) Genitourinary: Reports as per HPI Musculoskeletal: Reports as per HPI Integumentary: Reports as per HPI (Amputation of fingers work-related retired furniture lumber production worker) Psychiatric: Reports as per HPI, Reports anxiety Past Medical History Past Medical History: Cancer, Chest Pain / Angina, COPD, GERD/Reflux, Hearing Disorder / Deafness, Hyperlipidemia, Hypertension, Myocardial Infarction ([place]), Osteoarthritis (OA), Prostate Disorder, Pulmonary Embolus (PE) Additional Past Medical History / Comment(s): Interstitial lung disease, pulmonary fibrosis, PE in 2012-pt cannot recall laterality, past home O2 use but none now, RIA[place]-cannot tolerate Cpap, prostate cancer with radiation treatment, skin cancer with removals, nephrolithiasis, migraines, compression fracture low back, bilateral elbow fractures with surgery, PUD, jaundiced as a child, [place] bilaterally. "mild" [place] in january 2020. Last Myocardial Infarction Date:: January 2020 History of Any Multi-Drug Resistant Organisms: None Reported Past Surgical History: Appendectomy, Cholecystectomy, Heart Catheterization, Heart Catheterization With Stent, Hernia Repair, Joint Replacement, Orthopedic Surgery Additional Past Surgical History / Comment(s): Prostate biopsy, L hand partial amp of 2 fingers, L knee ACL repair, R knee arthroscopy, bilateral total elbow replacements per pt, bilateral cataract removals, L inguinal hernia repair, cardiac caths x 2, EGD, colonoscopy, skin cancer removals. Past Anesthesia/Blood Transfusion Reactions: No Reported Reaction Date of Last Stent Placement:: January 2020. Past Psychological History: Anxiety, Depression Additional Psychological History / Comment(s): Pt resides with his spouse. He is independent. Smoking Status: Former smoker Past Alcohol Use History: None Reported Additional Past Alcohol Use History / Comment(s): Pt started smoking in 1960 and quit in 2004. Past Drug Use History: None Reported - Past Family History Brother(s) Family Medical History: Cancer Additional Family Medical History / Comment(s): ONE BROTHER HAD LUNG CA & ANOTHER HAD MELANOMA. Brother just recently last week. Mother Family Medical History: AICD/Pacemaker Father Family Medical History: No Reported History Sister(s) Family Medical History: No Reported History Medications and Allergies Home Medications Medication Instructions Recorded Confirmed Type Pantoprazole Sodium [Protonix] 40 mg PO DAILY 03/08/16 09/16/20 History Cholecalciferol [Vitamin D3 (25 1,000 unit PO HS 12/12/18 09/16/20 History Mcg = 1000 Iu)] Vit C/E/Zn/Coppr/Lutein/Zeaxan 1 cap PO BID 12/12/18 09/16/20 History [Preservision Areds 2 Softgel] calcium polycarbophiL [Fibercon] 625 mg PO HS 12/12/18 09/16/20 History Pravastatin Sodium [Pravachol] 40 mg PO HS tab 04/21/20 09/16/20 Rx carvediloL [Coreg*] 12.5 mg PO BID-W/MEALS tab 04/21/20 09/16/20 Rx LORazepam [Ativan] 0.5 mg PO TID 09/16/20 09/16/20 History Losartan [Cozaar] 25 mg PO DAILY 09/16/20 09/16/20 History Ticagrelor [Brilinta] 60 mg PO BID 09/16/20 09/16/20 History amLODIPine [Norvasc] 2.5 mg PO DAILY 09/16/20 09/16/20 History Allergies Allergy/AdvReac Type Severity Reaction Status Date / Time alprazolam [From Xanax] AdvReac Unknown Verified 09/16/20 18:32 Physical Exam Osteopathic Statement: *. No significant issues noted on an osteopathic structural exam other than those noted in the History and Physical/Consult. Vitals: Vital Signs Temp Pulse Pulse Resp BP BP Pulse Ox 09/17/20 16:14 72 09/17/20 16:04 66 09/17/20 16:00 70 18 144/72 96 09/17/20 14:00 18 09/17/20 12:00 68 18 161/77 95 09/17/20 08:00 97.8 F 68 18 157/69 95 09/17/20 04:00 97.8 F 74 18 146/58 94 L 09/17/20 00:00 98.5 F 83 20 157/70 93 L 09/16/20 22:39 97.6 F 80 76 18 153/77 144/61 94 L 09/16/20 21:04 80 18 153/77 94 L 09/16/20 20:13 82 18 161/72 96 09/16/20 19:46 83 18 166/80 96 09/16/20 19:15 92 L Intake and Output 09/17/20 09/17/20 09/17/20 06:59 14:59 22:59 Intake Total 237 240 Output Total 470 200 200 Balance -470 37 40 Intake: Intake, IV Titration 119 Amount Heparin Sod,Pork in 0.45% 119 NaCl 25,000 unit In 0.45 % NaCl 1 250ml.bag @ 11. 727 UNITS/KG/HR 10 mls/hr IV .Q24H [facility] Rx#: [id number] Oral 118 240 Output: Urine 470 200 200 Other: Voiding Method Urinal # Voids 1 Weight 84.3 kg General: [Patient awake, alert and oriented times 3. Patient in no acute distress.] HEENT: [PERRL. EOMI. No pharyngeal erythema or exudate.] Neck: [No adenopathy.] Cardiac: [Heart regular in rate and rhythm. No S3. No S4. No clicks, rubs. No murmur.] Lungs: [Clear to auscultation bilaterally.] Abdomen: [No mass. No organomegaly. Bowel sounds presnt and normoactive in all 4 quadrants.] Extremes: [No edema no cyanosis no claudication normal pulses] : Normal male genitalia Musculoskeletal: [No joint erythema, edema or tenderness.] Skin: [No rash.] Neurologic: [No lateralizing deficits. CN II - XII grossly intact.] Lymphatic: [No adenopathy.] Results CBC & Chem 7: 09/17/20 08:33 09/16/20 18:01 Labs: Abnormal Lab Results - Last 24 Hours (Table) 09/16/20 09/17/20 09/17/20 Range/Units 21:35 00:03 08:33 Hgb 11.7 L (13.0-17.5) gm/dL Hct 35.0 L (39.0-53.0) % RDW 20.0 H (11.5-15.5) % Metamyelocytes # (Man) 0.30 H (0) k/uL Myelocytes # (Manual) 0.10 H (0) k/uL APTT (22.0-30.0) sec Troponin I 0.067 H* 0.059 H* (0.000-0.034) ng/mL 09/17/20 09/17/20 Range/Units 08:33 14:43 Hgb (13.0-17.5) gm/dL Hct (39.0-53.0) % RDW (11.5-15.5) % Metamyelocytes # (Man) (0) k/uL Myelocytes # (Manual) (0) k/uL APTT 33.0 H 39.8 H (22.0-30.0) sec Troponin I (0.000-0.034) ng/mL Thrombosis Risk Factor Assmnt - Choose All That Apply Any of the Below Risk Factors Present?: Yes Each Factor Represents 1 point: Abnormal pulmonary function (COPD), Obesity (BMI >25) Each Risk Factor Represents 3 Points: Age 75 years or older, History of DVT/PE Thrombosis Risk Factor Assessment Total Risk Factor Score: 8 Thrombosis Risk Factor Assessment Level: High Risk Assessment and Plan (1) Acute dyspnea Current Visit: Yes Status: Acute Code(s): R06.00 - DYSPNEA, UNSPECIFIED SNOMED Code(s): 572570012 (2) Elevated troponin Current Visit: Yes Status: Acute Code(s): R77.8 - OTHER SPECIFIED ABNORMALITIES OF PLASMA PROTEINS SNOMED Code(s): 813471781 (3) CKD (chronic kidney disease), stage III Current Visit: No Status: Acute Code(s): N18.30 - CHRONIC KIDNEY DISEASE, STAGE 3 UNSPECIFIED SNOMED Code(s): 082912378 (4) COPD (chronic obstructive pulmonary disease) Current Visit: No Status: Acute Code(s): J44.9 - CHRONIC OBSTRUCTIVE PULMONARY DISEASE, UNSPECIFIED SNOMED Code(s): 82128257 (5) Coronary artery disease Current Visit: No Status: Acute Code(s): I25.10 - ATHSCL HEART DISEASE OF [place] CORONARY ARTERY W/O ANG PCTRS SNOMED Code(s): 48919270 (6) Essential (primary) hypertension Current Visit: No Status: Acute Code(s): I10 - ESSENTIAL (PRIMARY) HYPERTENSION SNOMED Code(s): 01765689 (7) H/O heart artery stent Current Visit: No Status: Acute Code(s): Z95.5 - PRESENCE OF CORONARY ANGIOPLASTY IMPLANT AND GRAFT SNOMED Code(s): 149464839 (8) H/O prostate cancer Current Visit: No Status: Acute Code(s): Z85.46 - PERSONAL HISTORY OF MALIGNANT NEOPLASM OF PROSTATE SNOMED Code(s): 344628018 (9) Interstitial lung disease Current Visit: No Status: Acute Code(s): J84.9 - INTERSTITIAL PULMONARY DISEASE, UNSPECIFIED SNOMED Code(s): 355955188 (10) Unstable angina Current Visit: No Status: Acute Code(s): I20.0 - UNSTABLE ANGINA SNOMED Code(s): 2564056 Plan: Patient needed to the hospital Cardiology consultation performed Patient started on Effient Renal failure appears stable We'll evaluate patient's tolerance to Effient Patient's being anticoagulated because of remote pulmonary embolus History of prostate cancer Not so distant long leg fracture history Patient is in good spirits in the room and otherwise doing well if tolerant of Effient Expect possible discharge tomorrow Time with Patient: Greater than 30
[2020-09-17] MEDS: CHOLECALCIFEROL 25 MCG (1000 IU) TABLET PO SCH (20:54)
[2020-09-17] MEDS: HYDROcodone/APAP 5-325MG 1 EACH TAB PO PRN (22:57)
[2020-09-18] MEDS: carvediloL 12.5 MG TAB PO SCH ×2 (06:52→16:53)
[2020-09-18] MEDS: SODIUM CHLORIDE 0.9% 1,000 ML IV SCH ×2 (06:53→20:56)
[2020-09-18] MEDS: PANTOPRAZOLE 40 MG TABLET PO SCH (06:53)
[2020-09-18] MEDS: ATORVASTATIN 40 MG TAB PO SCH (08:12)
[2020-09-18] MEDS: PRASUGREL 10 MG TAB PO SCH (08:12)
[2020-09-18] MEDS: LORazepam 0.5 MG TAB PO SCH ×3 (08:12→21:35)
[2020-09-18] MEDS: VIT A,C & E-LUTEIN-MINERALS 1 EACH TAB PO SCH ×2 (08:12→20:55)
[2020-09-18] MEDS: amLODIPine 2.5 MG TAB PO SCH (08:12)
[2020-09-18] MEDS: ASPIRIN 81 MG PO SCH (08:12)
[2020-09-18] MEDS: IPRATROPIUM-ALBUTEROL 3 ML NEB INHALATION SCH ×4 (08:14→19:42)
[2020-09-18] MEDS: SYMBICORT 160-4.5 MCG INHALER INHALATION SCH ×2 (08:14→19:42)
[2020-09-18 10:25] LABS: Calcium 8.7 mg/dL (8.4-10.2); Potassium 4.4 mmol/L (3.5-5.1)
[2020-09-18 10:49] LABS: Anisocytosis Moderate; HCT 33.7 % (39.0-53.0); MCH 26.6 pg (25.0-35.0); MCHC 32.7 g/dL (31.0-37.0); MCV 81.4 fL (80.0-100.0); Microcytosis Slight; Platelet Count 263 k/uL (150-450); Poikilocytosis Slight; RBC 4.15 m/uL (4.30-5.90); RDW 20.2 % (11.5-15.5)
--- NOTE | 2020-09-18 12:10 | P.CNPUL ---
History of Present Illness Consult date: 09/18/20 Requesting physician: Barrington Goyal Jr Reason for consult: dyspnea Chief complaint: Shortness of breath with exertion History of present illness: This is a very pleasant 80-year-old gentleman with a history of interstitial lung disease/pulmonary fibrosis, pulmonary embolism back in 2011, obstructive sleep apnea intolerant to CPAP, prostate cancer with radiation treatments, nephrolithiasis, migraines, coronary artery disease with previous stent placement anxiety/depression, hearing disorder, hypertension, hyperlipidemia. He also has chronic obstructive pulmonary disease and a remote history of chronic tobacco dependence quit 20 years ago. He follows with Dr. Conrad in our office. He has a nebulizer was treatments that he rarely uses. No home oxygen. He presented to the emergency room 2 days ago with complaints of increasing shortness of breath and dyspnea on exertion. The day prior he had started Brilinta as he was intolerant to Plavix due to abdominal discomfort. Chest x-ray revealed evidence of COPD but no acute pulmonary process. VQ scan was nondiagnostic for PE. Echocardiogram revealed preserved left ventricular systolic function with ejection fraction 55-60%. Right ventricle normal in size. No significant valvular abnormality. White count 8.6. Hemoglobin 11.0. Platelets 263. Sodium 140. Potassium 4.4. Creatinine 2.26. Troponin 0.067. 0.059. Coronavirus not detected. He is seen today in consultation. He is currently playing quite flat in bed. Awake and alert in no acute distress. Denies any worsening shortness of breath, cough or congestion. He's been initiated on Symbicort and DuoNeb inhalations. His Brilinta was discontinued. He's been initiated on Effient. Review of Systems REVIEW OF SYSTEMS: CONSTITUTIONAL: Denies any recent significant weight loss or weight gain. EYES: Denies change in vision. EARS, NOSE, MOUTH, THROAT: Denies headaches, denies sore throat. CARDIOVASCULAR: Denies chest pain, palpitations or syncopal episodes. RESPIRATORY: Positive for shortness of breath, no cough, congestion or hemoptysis. GASTROINTESTINAL: Denies change in appetite, denies abdominal pain GENITOURINARY: Denies hematuria, denies infections. MUSKULOSKELETAL: Denies pain, denies swelling. INTEGUMENTARY: Denies rash, denies eczema. NEUROLOGICAL: Denies recent memory loss, no recent seizure activity. PSYCHIATRIC: Denies anxiety, denies depression. HEMATOLOGIC/LYMPHATIC: Denies anemia, denies enlarged lymph nodes. Past Medical History Past Medical History: Cancer, Chest Pain / Angina, COPD, GERD/Reflux, Hearing Disorder / Deafness, Hyperlipidemia, Hypertension, Myocardial Infarction ([place]), Osteoarthritis (OA), Prostate Disorder, Pulmonary Embolus (PE) Additional Past Medical History / Comment(s): Interstitial lung disease, pulmonary fibrosis, PE in 2011-pt cannot recall laterality, past home O2 use but none now, [place]IA[place]-cannot tolerate Cpap, prostate cancer with radiation treatment, skin cancer with removals, nephrolithiasis, migraines, compression fracture low back, bilateral elbow fractures with surgery, PUD, jaundiced as a child, [place] bilaterally. "mild" [place] in january 2020. Last Myocardial Infarction Date:: January 2020 History of Any Multi-Drug Resistant Organisms: None Reported Past Surgical History: Appendectomy, Cholecystectomy, Heart Catheterization, Heart Catheterization With Stent, Hernia Repair, Joint Replacement, Orthopedic Surgery Additional Past Surgical History / Comment(s): Prostate biopsy, L hand partial amp of 2 fingers, L knee ACL repair, R knee arthroscopy, bilateral total elbow replacements per pt, bilateral cataract removals, L inguinal hernia repair, cardiac caths x 2, EGD, colonoscopy, skin cancer removals. Past Anesthesia/Blood Transfusion Reactions: No Reported Reaction Date of Last Stent Placement:: January 2020. Past Psychological History: Anxiety, Depression Additional Psychological History / Comment(s): Pt resides with his spouse. He is independent. Smoking Status: Former smoker Past Alcohol Use History: None Reported Additional Past Alcohol Use History / Comment(s): Pt started smoking in 1961 and quit in 2004. Past Drug Use History: None Reported - Past Family History Brother(s) Family Medical History: Cancer Additional Family Medical History / Comment(s): ONE BROTHER HAD LUNG CA & ANOTHER HAD MELANOMA. Brother just recently last week. Mother Family Medical History: AICD/Pacemaker Father Family Medical History: No Reported History Sister(s) Family Medical History: No Reported History Medications and Allergies Home Medications Medication Instructions Recorded Confirmed Type Pantoprazole Sodium [Protonix] 40 mg PO DAILY 03/08/16 09/16/20 History Cholecalciferol [Vitamin D3 (25 1,000 unit PO HS 12/12/18 09/16/20 History Mcg = 1000 Iu)] Vit C/E/Zn/Coppr/Lutein/Zeaxan 1 cap PO BID 12/12/18 09/16/20 History [Preservision Areds 2 Softgel] calcium polycarbophiL [Fibercon] 625 mg PO HS 12/12/18 09/16/20 History Pravastatin Sodium [Pravachol] 40 mg PO HS tab 04/21/20 09/16/20 Rx carvediloL [Coreg*] 12.5 mg PO BID-W/MEALS tab 04/21/20 09/16/20 Rx LORazepam [Ativan] 0.5 mg PO TID 09/16/20 09/16/20 History Losartan [Cozaar] 25 mg PO DAILY 09/16/20 09/16/20 History Ticagrelor [Brilinta] 60 mg PO BID 09/16/20 09/16/20 History amLODIPine [Norvasc] 2.5 mg PO DAILY 09/16/20 09/16/20 History Allergies Allergy/AdvReac Type Severity Reaction Status Date / Time alprazolam [From Xanax] AdvReac Unknown Verified 09/16/20 18:32 Physical Exam Vitals: Vital Signs Temp Pulse Pulse Resp BP Pulse Ox 09/18/20 08:29 66 09/18/20 08:15 64 09/18/20 08:00 97.8 F 77 18 172/70 94 L 09/18/20 04:00 97.9 F 73 18 163/75 93 L 09/18/20 00:00 97.5 F L 74 16 164/75 94 L 09/17/20 19:50 97.5 F L 72 18 168/78 95 09/17/20 19:48 70 09/17/20 19:39 74 09/17/20 16:14 72 09/17/20 16:04 66 09/17/20 16:00 70 18 144/72 96 09/17/20 14:00 18 09/17/20 12:00 68 18 161/77 95 Intake and Output 09/17/20 09/18/20 09/18/20 22:59 06:59 14:59 Intake Total 240 120 Output Total 600 300 Balance -360 -180 Intake: Oral 240 120 Output: Urine 600 300 Other: Voiding Method Urinal Urinal Urinal # Voids 2 # Bowel Movements 1 Weight 81 kg GENERAL EXAM: Alert, pleasant 80-year-old gentleman, on 2 L nasal cannula,, comfortable in no apparent distress. HEAD: Normocephalic. EYES: Normal reaction of pupils, equal size. NOSE: Clear with pink turbinates. THROAT: No erythema or exudates. NECK: No masses, no JVD. CHEST: No chest wall deformity. LUNGS: Equal air entry with no crackles, wheeze, rhonchi. Diminished. CVS: S1 and S2 normal with no audible murmur, regular rhythm. ABDOMEN: No hepatosplenomegaly, normal bowel sounds, no guarding or rigidity. SPINE: No scoliosis or deformity SKIN: No rashes CENTRAL NERVOUS SYSTEM: No focal deficits, tone is normal in all 4 extremities. EXTREMITIES: There is no peripheral edema. No clubbing, no cyanosis. Peripheral pulses are intact. Results - Laboratory Findings CBC and BMP: 09/18/20 09:35 09/18/20 09:35 PT/INR, D-dimer PT 11.5 sec (9.0-12.0) 09/17/20 08:33 INR 1.1 (<1.2) 09/17/20 08:33 D-Dimer 0.64 mg/L FEU (<0.60) H 09/16/20 18:01 Abnormal lab findings: Abnormal Labs 09/16/20 09/16/20 09/16/20 17:58 18:01 18:01 RBC Hgb 11.9 L Hct 36.2 L RDW 20.1 H Metamyelocytes # (Man) Myelocytes # (Manual) APTT D-Dimer 0.64 H Chloride BUN Creatinine Glucose Total Bilirubin Alkaline Phosphatase Troponin I Urine Protein Trace H 09/16/20 09/16/20 09/16/20 18:01 18:01 21:35 RBC Hgb Hct RDW Metamyelocytes # (Man) Myelocytes # (Manual) APTT D-Dimer Chloride BUN 37 H Creatinine 2.43 H Glucose Total Bilirubin 1.7 H Alkaline Phosphatase 156 H Troponin I 0.087 H* 0.067 H* Urine Protein 09/17/20 09/17/20 09/17/20 00:03 08:33 08:33 RBC Hgb 11.7 L Hct 35.0 L RDW 20.0 H Metamyelocytes # (Man) 0.30 H Myelocytes # (Manual) 0.10 H APTT 33.0 H D-Dimer Chloride BUN Creatinine Glucose Total Bilirubin Alkaline Phosphatase Troponin I 0.059 H* Urine Protein 09/17/20 09/18/20 09/18/20 14:43 09:35 09:35 RBC 4.15 L Hgb 11.0 L Hct 33.7 L RDW 20.2 H Metamyelocytes # (Man) Myelocytes # (Manual) APTT 39.8 H D-Dimer Chloride 110 H BUN 31 H Creatinine 2.26 H Glucose 112 H Total Bilirubin Alkaline Phosphatase Troponin I Urine Protein - Diagnostic Findings Chest x-ray: image reviewed Assessment and Plan Assessment: 1 Dyspnea on exertion suspect secondary to Brilinta after just 2 doses 2 Troponin leak 3 Coronary artery disease with previous stent placement to the proximal LAD 4 Chronic obstructive pulmonary disease, currently inactive and stable. 5 Acute on chronic renal failure 6 Hyperlipidemia 7 Remote history of pulmonary embolism 8 Hearing disorder 9 History of interstitial lung disease. 10 History of obstructive sleep apnea intolerant to CPAP 11 History of prostate cancer status post radiation 12 History of nephrolithiasis 13 Hypertension Plan: The patient was seen and evaluated by Dr. Philip Chest x-ray and labs reviewed Cardiology discontinued Brilinta and switched to Effient Currently stable from the pulmonary standpoint Continue Symbicort, DuoNeb Titrate FiO2 as tolerated We will continue to follow and make further recommendations based on his clinical status I, the cosigning physician, performed a history & physical examination of the patient. Lungs sounds are clear, diminished. Maintaining good O2 saturations in the 90s on 2 L/m per nasal cannula. I discussed the assessment and plan of care with my nurse practitioner, Bijal Brink. I attest to the above consultation as dictated by her. Time with Patient: Greater than 30
--- NOTE | 2020-09-18 13:06 | P.PN ---
Subjective Progress Note Date: 09/18/20 Principal diagnosis: patient was originally admitted with abdominal pain probably secondary to Plavix patient was changed to Effient, and January patient underwent angioplasty with stent placement had drug-eluting stents placed hence the reason for the anticoagulant therapy. While patient was in the hospital waiting to be discharged he developed moderate to severe right groin pain suspect recurrent inguinal hernia same as above Objective - Vital Signs Vital signs: Vital Signs Temp 97.6 F 09/18/20 12:00 Pulse 77 09/18/20 12:00 Resp 18 09/18/20 12:00 BP 158/68 09/18/20 12:00 Pulse Ox 97 09/18/20 12:00 Intake & Output 09/17/20 09/18/20 09/18/20 18:59 06:59 18:59 Intake Total 477 120 Output Total 400 400 300 Balance 77 -400 -180 Weight 81 kg Intake: Intake, IV Titration 119 Amount Heparin Sod,Pork in 0.45% 119 NaCl 25,000 unit In 0.45 % NaCl 1 250ml.bag @ 11. 727 UNITS/KG/HR 10 mls/hr IV .Q24H [facility] Rx#: [id number] Oral 358 120 Output: Urine 400 400 300 Other: Voiding Method Urinal Urinal # Voids 2 # Bowel Movements 1 - Exam General: [Patient awake, alert and oriented times 3. Patient in no acute distress.] HEENT: [PERRL. EOMI. No pharyngeal erythema or exudate.] Neck: [No adenopathy.] Cardiac: [Heart regular in rate and rhythm. No S3. No S4. No clicks, rubs. No murmur.] Lungs: [Clear to auscultation bilaterally.] Abdomen: [No mass. No organomegaly. Bowel sounds presnt and normoactive in all 4 quadrants.] Extremes: [No edema no cyanosis no claudication normal pulses] :normal male genitalia, right inguinal hernia discomfort started last night causing patient difficulty to ambulate Musculoskeletal: [No joint erythema, edema or tenderness.] Skin: [No rash.] Neurologic: [No lateralizing deficits. CN II - XII grossly intact.] Lymphatic: [No adenopathy.] - Labs CBC & Chem 7: 09/18/20 09:35 09/18/20 09:35 Labs: Abnormal Lab Results - Last 24 Hours (Table) 09/17/20 09/18/20 09/18/20 Range/Units 14:43 09:35 09:35 RBC 4.15 L (4.30-5.90) m/uL Hgb 11.0 L (13.0-17.5) gm/dL Hct 33.7 L (39.0-53.0) % RDW 20.2 H (11.5-15.5) % APTT 39.8 H (22.0-30.0) sec Chloride 110 H (98-107) mmol/L BUN 31 H (9-20) mg/dL Creatinine 2.26 H (0.66-1.25) mg/dL Glucose 112 H (74-99) mg/dL Assessment and Plan (1) Acute dyspnea Current Visit: Yes Status: Acute Code(s): R06.00 - DYSPNEA, UNSPECIFIED SNOMED Code(s): 591501285 (2) Elevated troponin Current Visit: Yes Status: Acute Code(s): R77.8 - OTHER SPECIFIED ABNORMALITIES OF PLASMA PROTEINS SNOMED Code(s): 263735457 (3) CKD (chronic kidney disease), stage III Current Visit: No Status: Acute Code(s): N18.30 - CHRONIC KIDNEY DISEASE, STAGE 3 UNSPECIFIED SNOMED Code(s): 238337795 (4) COPD (chronic obstructive pulmonary disease) Current Visit: No Status: Acute Code(s): J44.9 - CHRONIC OBSTRUCTIVE PULMONARY DISEASE, UNSPECIFIED SNOMED Code(s): 81676632 (5) Coronary artery disease Current Visit: No Status: Acute Code(s): I25.10 - ATHSCL HEART DISEASE OF [place] CORONARY ARTERY W/O ANG PCTRS SNOMED Code(s): 55396254 (6) Essential (primary) hypertension Current Visit: No Status: Acute Code(s): I10 - ESSENTIAL (PRIMARY) HYPERTENSION SNOMED Code(s): 82589193 (7) H/O heart artery stent Current Visit: No Status: Acute Code(s): Z95.5 - PRESENCE OF CORONARY ANGIOPLASTY IMPLANT AND GRAFT SNOMED Code(s): 305624522 (8) H/O prostate cancer Current Visit: No Status: Acute Code(s): Z85.46 - PERSONAL HISTORY OF MALIGNANT NEOPLASM OF PROSTATE SNOMED Code(s): 467981706 (9) Interstitial lung disease Current Visit: No Status: Acute Code(s): J84.9 - INTERSTITIAL PULMONARY DISEASE, UNSPECIFIED SNOMED Code(s): 214566407 (10) Unstable angina Current Visit: No Status: Acute Code(s): I20.0 - UNSTABLE ANGINA SNOMED Code(s): 7303563 Plan: Patient needed to the hospital Cardiology consultation performed Patient started on Effient Renal failure appears stable We'll evaluate patient's tolerance to Effient Patient's being anticoagulated because of remote pulmonary embolus History of prostate cancer Not so distant long leg fracture history Patient is in good spirits in the room and otherwise doing well if tolerant of Effient Expect possible discharge tomorrow discharge held patient developed right inguinal groin pain causing difficulty with ambulating will consult Dr. Cabrera Arceo general surgery for evaluation and recommendations otherwise this patient could be discharged home Time with Patient: Greater than 30
--- NOTE | 2020-09-18 13:20 | PN ---
PROGRESS NOTE HISTORY: Mr. Ward is a 80-year-old male with a history of coronary disease, history of pulmonary fibrosis, who presented with dyspnea. He continues to be dyspneic, but he had no chest pain. He is lying supine without difficulty. He has no abdominal discomfort like he had on the Plavix. He was started on Effient yesterday. He denies any dizziness or palpitation. He continues to be on aspirin once a day, Effient 10 mg daily, atorvastatin 40 mg daily, carvedilol 12.5 mg twice a day, in addition to his inhalers. PHYSICAL EXAMINATION: Blood pressure running in the 150-160 with a heart in 60s. LUNGS: Dry crackles no wheezes. HEART: Regular rhythm S1, S2. No S3. No rub. ABDOMEN: Soft nontender. EXTREMITIES: No edema. LAB DATA: Hemoglobin of 11 BUN creatinine 31 and 2.26, which is slightly improved compared to yesterday. Potassium 4.4. IMPRESSION: 1. Symptoms of progressive dyspnea, probably related to his pulmonary fibrosis. I see no clear evidence of fluid overload and the troponin elevation does not appear to be related to primary ischemic event. 2. Status post stenting done in January of last year. 3. Chronic obstructive lung disease. 4. History of hyperlipidemia. 5. Chronic kidney disease. RECOMMENDATIONS: We will continue on the present therapy. Continue to increase his level of activity. Follow his blood pressure as an outpatient. If he is stable, he may be able to be discharged home today and follow up as an outpatient with Dr. Apple. His echocardiogram revealed a preserved left ventricular systolic function. MMODL / IJN: [id number] /
[2020-09-18 13:41] VITALS: BMI 24.2
[2020-09-18 13:41] LABS: Band Neutrophils % 3 %; Eosinophils # (M) 0.17 k/uL (0-0.7); Metamyelocytes # (M) 0.26 k/uL (0); Metamyelocytes % 3 %; Monocytes # (M) 0.43 k/uL (0-1.0); Myelocytes # (M) 0.34 k/uL (0); Myelocytes % 4 %; Neutrophils % (M) 76 %; Nucleated Red Blood Cells 1 /100 WBC (0-0); Total Cells Counted 200
[2020-09-18 13:42] LABS: Large Platelets Present; Lymphocytes # (M) 0.68 k/uL (1.0-4.8); Tear Drop Cells Present; WBC 8.5 k/uL (3.8-10.6)
[2020-09-18 13:43] LABS: Polychromasia Present
[2020-09-18] MEDS: CHOLECALCIFEROL 25 MCG (1000 IU) TABLET PO SCH (20:56)
[2020-09-18] MEDS: HYDROcodone/APAP 5-325MG 1 EACH TAB PO PRN (21:37)
[2020-09-19] MEDS: carvediloL 12.5 MG TAB PO SCH ×2 (06:53→15:41)
[2020-09-19] MEDS: PANTOPRAZOLE 40 MG TABLET PO SCH (06:53)
[2020-09-19] MEDS: VIT A,C & E-LUTEIN-MINERALS 1 EACH TAB PO SCH ×2 (07:37→20:34)
[2020-09-19] MEDS: LORazepam 0.5 MG TAB PO SCH ×3 (07:37→20:34)
[2020-09-19] MEDS: amLODIPine 2.5 MG TAB PO SCH (07:38)
[2020-09-19] MEDS: PRASUGREL 10 MG TAB PO SCH (07:38)
[2020-09-19] MEDS: ATORVASTATIN 40 MG TAB PO SCH (07:38)
[2020-09-19] MEDS: ASPIRIN 81 MG PO SCH (07:38)
[2020-09-19] MEDS: SYMBICORT 160-4.5 MCG INHALER INHALATION SCH ×2 (07:50→20:51)
[2020-09-19] MEDS: IPRATROPIUM-ALBUTEROL 3 ML NEB INHALATION SCH ×4 (07:50→20:51)
[2020-09-19] MEDS ORDERED: IOPAMIDOL CONTRAST (ORAL USE) VIAL PO PRN (10:33)
--- NOTE | 2020-09-19 10:36 | P.GSCN ---
History of Present Illness Consult date: 09/19/20 Reason for Consult: Right groin pain History of present illness: This is a 80-year-old male who's in the hospital for dyspnea and elevated trop onins. Patient had complaints of severe right groin pain. He states pain was sudden last night. He's had a previous history of right inguinal hernia with Dr. Staton. Past Medical History Past Medical History: Cancer, Chest Pain / Angina, COPD, GERD/Reflux, Hearing Disorder / Deafness, Hyperlipidemia, Hypertension, Myocardial Infarction (ME), Osteoarthritis (OA), Prostate Disorder, Pulmonary Embolus (PE) Additional Past Medical History / Comment(s): Interstitial lung disease, pulmonary fibrosis, PE in 2012-pt cannot recall laterality, past home O2 use but none now, RIA[place]-cannot tolerate Cpap, prostate cancer with radiation treatment, skin cancer with removals, nephrolithiasis, migraines, compression fracture low back, bilateral elbow fractures with surgery, PUD, jaundiced as a child, [place] bilaterally. "mild" ME in january 2020. Last Myocardial Infarction Date:: January 2020 History of Any Multi-Drug Resistant Organisms: None Reported Past Surgical History: Appendectomy, Cholecystectomy, Heart Catheterization, Heart Catheterization With Stent, Hernia Repair, Joint Replacement, Orthopedic Surgery Additional Past Surgical History / Comment(s): Prostate biopsy, L hand partial amp of 2 fingers, L knee ACL repair, R knee arthroscopy, bilateral total elbow replacements per pt, bilateral cataract removals, L inguinal hernia repair, cardiac caths x 2, EGD, colonoscopy, skin cancer removals. Past Anesthesia/Blood Transfusion Reactions: No Reported Reaction Date of Last Stent Placement:: January 2020. Past Psychological History: Anxiety, Depression Additional Psychological History / Comment(s): Pt resides with his spouse. He is independent. Smoking Status: Former smoker Past Alcohol Use History: None Reported Additional Past Alcohol Use History / Comment(s): Pt started smoking in 1961 and quit in 2004. Past Drug Use History: None Reported - Past Family History Brother(s) Family Medical History: Cancer Additional Family Medical History / Comment(s): ONE BROTHER HAD LUNG CA & ANOTHER HAD MELANOMA. Brother just recently last week. Mother Family Medical History: AICD/Pacemaker Father Family Medical History: No Reported History Sister(s) Family Medical History: No Reported History Medications and Allergies Home Medications Medication Instructions Recorded Confirmed Type Pantoprazole Sodium [Protonix] 40 mg PO DAILY 03/08/16 09/16/20 History Cholecalciferol [Vitamin D3 (25 1,000 unit PO HS 12/12/18 09/16/20 History Mcg = 1000 Iu)] Vit C/E/Zn/Coppr/Lutein/Zeaxan 1 cap PO BID 12/12/18 09/16/20 History [Preservision Areds 2 Softgel] calcium polycarbophiL [Fibercon] 625 mg PO HS 12/12/18 09/16/20 History Pravastatin Sodium [Pravachol] 40 mg PO HS tab 04/21/20 09/16/20 Rx carvediloL [Coreg*] 12.5 mg PO BID-W/MEALS tab 04/21/20 09/16/20 Rx LORazepam [Ativan] 0.5 mg PO TID 09/16/20 09/16/20 History Losartan [Cozaar] 25 mg PO DAILY 09/16/20 09/16/20 History Ticagrelor [Brilinta] 60 mg PO BID 09/16/20 09/16/20 History amLODIPine [Norvasc] 2.5 mg PO DAILY 09/16/20 09/16/20 History Allergies Allergy/AdvReac Type Severity Reaction Status Date / Time alprazolam [From Xanax] AdvReac Unknown Verified 09/16/20 18:32 Surgical - Exam Vital Signs Temp Pulse Resp BP Pulse Ox 97.6 F 86 20 154/76 94 L 09/16/20 15:50 09/16/20 15:50 09/16/20 15:50 09/16/20 15:50 09/16/20 15:50 - General well developed, well nourished, no distress - Eyes PERRL - ENT normal pinna - Neck no masses - Respiratory normal expansion - Cardiovascular Rhythm: regular - Abdomen Patient is very tender right groin. I'm unable to tell if he has a herniated was tenderness. Abdomen: soft, non tender Results - Labs 09/18/20 09:35 09/18/20 09:35 Abnormal Lab Results - Last 24 Hours (Table) 09/18/20 Range/Units 09:35 RBC 4.15 L (4.30-5.90) m/uL Hgb 11.0 L (13.0-17.5) gm/dL Hct 33.7 L (39.0-53.0) % RDW 20.2 H (11.5-15.5) % Lymphocytes # (Manual) 0.68 L (1.0-4.8) k/uL Metamyelocytes # (Man) 0.26 H (0) k/uL Myelocytes # (Manual) 0.34 H (0) k/uL Nucleated RBCs 1 H (0-0) /100 WBC Assessment and Plan Assessment: Right groin pain. Patient will undergo computed tomography scan of the pelvis to the upper possible recurrent right inguinal hernia
--- NOTE | 2020-09-19 11:04 | P.PN ---
Subjective Progress Note Date: 09/19/20 Principal diagnosis: patient was originally admitted with abdominal pain probably secondary to Plavix patient was changed to Effient, and January patient underwent angioplasty with stent placement had drug-eluting stents placed hence the reason for the anticoagulant therapy. While patient was in the hospital waiting to be discharged he developed moderate to severe right groin pain suspect recurrent inguinal hernia 09/19/2020 From a medical/cardiology point of view patient is cleared to be discharged however as stated in yesterday's note he developed moderate to severe right groin pain, surgical consult was obtained as patient's had hernia repair with recurrence and second repair at this site in the past. The surgeon of record Rodriguez Reece MD examined patient, patient was exquisitely tender to touch, decision was made to obtain CT of pelvis to aid in assessment before patient sent home Objective - Vital Signs Vital signs: Vital Signs Temp 97.8 F 09/19/20 07:33 Pulse 82 09/19/20 07:33 Resp 18 09/19/20 07:46 BP 174/76 09/19/20 07:33 Pulse Ox 98 09/19/20 07:33 Intake & Output 09/18/20 09/19/20 09/19/20 18:59 06:59 18:59 Intake Total 1656 240 Output Total 300 480 450 Balance 1356 -480 -210 Weight 81 kg 81 kg Intake: Intake, IV Titration 660 Amount Sodium Chloride 0.9% 1, 660 000 ml @ 60 mls/hr IV . [id number] [facility] Rx#:[id number] Oral 996 240 Output: Urine 300 480 450 Other: Voiding Method Urinal Urinal Urinal # Voids 5 1 # Bowel Movements 1 - Exam General: [Patient awake, alert and oriented times 3. Patient in no acute distress.] HEENT: [PERRL. EOMI. No pharyngeal erythema or exudate.] Neck: [No adenopathy.] Cardiac: [Heart regular in rate and rhythm. No S3. No S4. No clicks, rubs. No murmur.] Lungs: [Clear to auscultation bilaterally.] Abdomen: [No mass. No organomegaly. Bowel sounds presnt and normoactive in all 4 quadrants.] Extremes: [No edema no cyanosis no claudication normal pulses] :normal male genitalia, right inguinal hernia discomfort started last night causing patient difficulty to ambulate Musculoskeletal: [No joint erythema, edema or tenderness.] Skin: [No rash.] Neurologic: [No lateralizing deficits. CN II - XII grossly intact.] Lymphatic: [No adenopathy.] - Labs CBC & Chem 7: 09/18/20 09:35 09/18/20 09:35 Labs: Abnormal Lab Results - Last 24 Hours (Table) 09/18/20 Range/Units 09:35 RBC 4.15 L (4.30-5.90) m/uL Hgb 11.0 L (13.0-17.5) gm/dL Hct 33.7 L (39.0-53.0) % RDW 20.2 H (11.5-15.5) % Lymphocytes # (Manual) 0.68 L (1.0-4.8) k/uL Metamyelocytes # (Man) 0.26 H (0) k/uL Myelocytes # (Manual) 0.34 H (0) k/uL Nucleated RBCs 1 H (0-0) /100 WBC Assessment and Plan (1) Acute dyspnea Current Visit: Yes Status: Acute Code(s): R06.00 - DYSPNEA, UNSPECIFIED SN OMED Code(s): 638266921 (2) Elevated troponin Current Visit: Yes Status: Acute Code(s): R77.8 - OTHER SPECIFIED ABNORMALITIES OF PLASMA PROTEINS SNOMED Code(s): 829218620 (3) CKD (chronic kidney disease), stage III Current Visit: No Status: Acute Code(s): N18.30 - CHRONIC KIDNEY DISEASE, STAGE 3 UNSPECIFIED SNOMED Code(s): 603618330 (4) COPD (chronic obstructive pulmonary disease) Current Visit: No Status: Acute Code(s): J44.9 - CHRONIC OBSTRUCTIVE PULMONARY DISEASE, UNSPECIFIED SNOMED Code(s): 22811309 (5) Coronary artery disease Current Visit: No Status: Acute Code(s): I25.10 - ATHSCL HEART DISEASE OF [place] CORONARY ARTERY W/O ANG PCTRS SNOMED Code(s): 43683113 (6) Essential (primary) hypertension Current Visit: No Status: Acute Code(s): I10 - ESSENTIAL (PRIMARY) HYPERTENSION SNOMED Code(s): 39024579 (7) H/O heart artery stent Current Visit: No Status: Acute Code(s): Z95.5 - PRESENCE OF CORONARY ANGIOPLASTY IMPLANT AND GRAFT SNOMED Code(s): 911043728 (8) H/O prostate cancer Current Visit: No Status: Acute Code(s): Z85.46 - PERSONAL HISTORY OF MALIGNANT NEOPLASM OF PROSTATE SNOMED Code(s): 863190956 (9) Interstitial lung disease Current Visit: No Status: Acute Code(s): J84.9 - INTERSTITIAL PULMONARY DI SEASE, UNSPECIFIED SNOMED Code(s): 748600321 (10) Unstable angina Current Visit: No Status: Acute Code(s): I20.0 - UNSTABLE ANGINA SNOMED Code(s): 6754727 Plan: Patient admitted to the hospital Cardiology consultation performed Patient started on Effient Renal failure appears stable patient tolerated Effient thus far Patient's being anticoagulated because drug-eluting stents placed History of prostate cancer Not so distant long leg fracture history Patient is in good spirits in the room and otherwise doing well if tolerant of Effient Expect possible discharge tomorrow discharge held patient developed right inguinal groin pain causing difficulty with ambulating will consult Dr. Cabrera Arceo general surgery for evaluation and recommendations Awaiting CT pelvis results patient to be discharged home once CAT scan cleared Time with Patient: Greater than 30
--- NOTE | 2020-09-19 11:04 | PN ---
PROGRESS NOTE Mr. Ward is a 80-year-old male with a history of pulmonary fibrosis, history of coronary artery disease who presented with symptoms of significant abdominal discomfort. Initially on Plavix that was stopped. Subsequently switched to Brilinta but he started to get dyspneic, so he came into the emergency room and subsequently was admitted. Yesterday, he had abdominal discomfort more in the lower abdomen. He was started on Effient and felt better with that. He feels stable this morning. He has chronic dyspnea on exertion related to his pulmonary fibrosis. He denies any chest discomfort. No dizziness. No palpitation. His abdomen is feeling better. His left ventricular systolic function was normal by echocardiography. He was started on Effient and has tolerated that so far. He is on amlodipine 2.5 mg daily, aspirin once a day, Lipitor 40 mg daily, carvedilol 12.5 mg twice a day, in addition to the Effient 10 mg daily. PHYSICAL EXAMINATION: Blood pressure running in the 150s and 160s with a heart rate in the 80s. LUNGS: With crackles bilaterally no wheezes. HEART: Regular rate and rhythm, S1, S2. No S3. No rub. ABDOMEN: Soft and nontender. Positive bowel sounds. No organomegaly. EXTREMITIES: No edema. LAB DATA: Lab data revealed a BUN and creatinine of 31 and 2.26. Potassium 4.4, hemoglobin of 11. IMPRESSION: 1. History of coronary artery disease, appears to be stable. 2. Mild troponin elevation most likely related to the chronic kidney disease. No evidence of acute coronary syndrome. 3. Abdominal pain, improved. 4. Pulmonary fibrosis. 5. Hypertension. 6. Hyperlipidemia. RECOMMENDATION: I will increase the dose of his amlodipine to 5 mg daily for better blood pressure control. We will increase his level of activity. Follow his renal function. If he remains stable, I would expect he should be able to be discharged home in the next 24 hours. In the meantime, will continue on the present medical regimen. MMODL / IJN: [id number] /
[2020-09-19] MEDS: SODIUM CHLORIDE 0.9% 1,000 ML IV SCH (12:58)
--- NOTE | 2020-09-19 13:31 | P.PN ---
Subjective Progress Note Date: 09/19/20 Principal diagnosis: Shortness of breath This is a very pleasant 80-year-old gentleman with a history of interstitial lung disease/pulmonary fibrosis, pulmonary embolism back in 2011, obstructive sleep apnea intolerant to CPAP, prostate cancer with radiation treatments, nephrolithiasis, migraines, coronary artery disease with previous stent placement anxiety/depression, hearing disorder, hypertension, hyperlipidemia. He also has chronic obstructive pulmonary disease and a remote history of chronic tobacco dependence quit 20 years ago. He follows with Dr. Conrad in our office. He has a nebulizer was treatments that he rarely uses. No home oxygen. He presented to the emergency room 2 days ago with complaints of increasing shortness of breath and dyspnea on exertion. The day prior he had started Brilinta as he was intolerant to Plavix due to abdominal discomfort. Chest x-ray revealed evidence of COPD but no acute pulmonary process. VQ scan was nondiagnostic for PE. Echocardiogram revealed preserved left ventricular systolic function with ejection fraction 55-60%. Right ventricle normal in size. No significant valvular abnormality. White count 8.6. Hemoglobin 11.0. Platelets 263. Sodium 140. Potassium 4.4. Creatinine 2.26. Troponin 0.067. 0.059. Coronavirus not detected. He is seen today in consultation. He is currently playing quite flat in bed. Awake and alert in no acute distress. Denies any worsening shortness of breath, cough or congestion. He's been initiated on Symbicort and DuoNeb inhalations. His Brilinta was discontinued. He's been initiated on Effient. The patient is seen today 09/19/2020 in follow-up on the selective care unit. He is currently sitting up in bed. Awake and alert in no acute distress. He is maintaining good O2 saturations in the high 90s on 2 L/m per nasal cannula. He is tolerating the Effient. No worsening shortness of breath. He is having some complaints of right groin pain. He did develop some severe pain last evening. He has a previous history of right inguinal hernia repair. Computed tomography scan of the pelvis is pending. Surgical services are on consult. Objective - Vital Signs Vital signs: Vital Signs Temp 97.8 F 09/19/20 07:33 Pulse 80 09/19/20 12:00 Resp 18 09/19/20 12:00 BP 156/70 09/19/20 12:00 Pulse Ox 97 09/19/20 12:00 Intake & Output 09/18/20 09/19/20 09/19/20 18:59 06:59 18:59 Intake Total 1656 240 Output Total 300 480 650 Balance 1356 -480 -410 Weight 81 kg 81 kg Intake: Intake, IV Titration 660 Amount Sodium Chloride 0.9% 1, 660 000 ml @ 60 mls/hr IV . [id number] [facility] Rx#:[id number] Oral 996 240 Output: Urine 300 480 650 Other: Voiding Method Urinal Urinal Urinal # Voids 5 1 # Bowel Movements 1 - Exam GENERAL EXAM: Alert, pleasant 80-year-old gentleman, on 2 L nasal cannula,, comfortable in no apparent distress. HEAD: Normocephalic. EYES: Normal reaction of pupils, equal size. NOSE: Clear with pink turbinates. THROAT: No erythema or exudates. NECK: No masses, no JVD. CHEST: No chest wall deformity. LUNGS: Equal air entry with coarse crackles at the bases. CVS: S1 and S2 normal with no audible murmur, regular rhythm. ABDOMEN: No hepatosplenomegaly, normal bowel sounds, no guarding or rigidity. SPINE: No scoliosis or deformity SKIN: No rashes CENTRAL NERVOUS SYSTEM: No focal deficits, tone is normal in all 4 extremities. EXTREMITIES: There is no peripheral edema. No clubbing, no cyanosis. Peripheral pulses are intact. - Labs CBC & Chem 7: 09/18/20 09:35 09/18/20 09:35 Labs: Abnormal Lab Results - Last 24 Hours (Table) 09/18/20 Range/Units 09:35 Lymphocytes # (Manual) 0.68 L (1.0-4.8) k/uL Metamyelocytes # (Man) 0.26 H (0) k/uL Myelocytes # (Manual) 0.34 H (0) k/uL Nucleated RBCs 1 H (0-0) /100 WBC Assessment and Plan Assessment: 1 Dyspnea on exertion suspect secondary to Brilinta after just 2 doses. Back to his baseline today. Tolerating Effient thus far. 2 Significant right groin pain, previous right inguinal hernia repair. CT scan of the pelvis pending 3 Coronary artery disease with previous stent placement to the proximal LAD 4 Chronic obstructive pulmonary disease, currently inactive and stable. 5 Acute on chronic renal failure 6 Hyperlipidemia 7 Remote history of pulmonary embolism 8 Hearing disorder 9 History of interstitial lung disease. 10 History of obstructive sleep apnea intolerant to CPAP 11 History of prostate cancer status post radiation 12 History of nephrolithiasis 13 Hypertension Plan: The patient was seen and evaluated by Dr. Philip Currently stable from the pulmonary standpoint Home once cleared by surgical services regarding right inguinal pain Follow-up in our office as scheduled I, the cosigning physician, performed a history & physical examination of the patient. Lungs sounds coarse crackles in the posterior bases. Maintaining good O2 saturations in the 90s on 2 L/m per nasal cannula. I discussed the assessment and plan of care with my nurse practitioner, Bijal Brink. I attest to the above note as dictated by her.
--- NOTE | 2020-09-19 13:35 | CT ---
EXAMINATION TYPE: CT pelvis wo con DATE OF EXAM: 09/19/2020 COMPARISON: 12/17/2018 HISTORY: Right inguinal pain CT DLP: 658.6 mGycm Automated exposure control for dose reduction was used. FINDINGS: Surgical clips are seen in the gallbladder fossa and the spleen appears to be enlarged measuring 18 c m correlate for splenomegaly. There is an aortic aneurysm measuring 3.5 cm extending in the proximal iliac vasculature. Lack of contrast limits exam. Nonobstructing punctate bilateral renal calculi. Rig ht kidney is somewhat diminutive. Postcholecystectomy changes noted. There is severe metallic artifact from the right hip prostheses which limits portions of the pelvis. Visualized portions of the bladder homogeneous. Vascular calcifications are seen. There is no diagnos tic evidence of a sizable inguinal hernia. Suggestion of prior surgery in the inguinal region bilater ally. Scoliosis with severe multilevel degenerative disc disease. IMPRESSION: 1. Limited exam due to severe metallic artifact from the patient's right hip prostheses. There is sev ere splenomegaly measuring at least 18 cm. This is only partially included on exam. Correlate with LF Ts. 2. No diagnostic evidence of inguinal hernia. Postsurgical changes are noted. 3. Atrophic right kidney with bilateral nonobstructing punctate calculi.
[2020-09-19] MEDS: CHOLECALCIFEROL 25 MCG (1000 IU) TABLET PO SCH (20:34)
[2020-09-19] MEDS: HYDROcodone/APAP 5-325MG 1 EACH TAB PO PRN (22:08)
[2020-09-19] MEDS ORDERED: HYDROcodone/APAP 7.5-325MG 1 EACH TAB PO PRN ×2 (23:21)
[2020-09-20] MEDS: SODIUM CHLORIDE 0.9% 1,000 ML IV SCH (05:21)
[2020-09-20] MEDS: carvediloL 12.5 MG TAB PO SCH ×2 (06:30→18:02)
[2020-09-20] MEDS: PANTOPRAZOLE 40 MG TABLET PO SCH (06:30)
[2020-09-20 08:31] VITALS: RESP 18
[2020-09-20] MEDS: IPRATROPIUM-ALBUTEROL 3 ML NEB INHALATION SCH ×4 (08:39→19:29)
[2020-09-20] MEDS: ASPIRIN 81 MG PO SCH (08:39)
[2020-09-20] MEDS: VIT A,C & E-LUTEIN-MINERALS 1 EACH TAB PO SCH ×2 (08:39→20:57)
[2020-09-20] MEDS: PRASUGREL 10 MG TAB PO SCH (08:39)
[2020-09-20] MEDS: ATORVASTATIN 40 MG TAB PO SCH (08:39)
[2020-09-20] MEDS: LORazepam 0.5 MG TAB PO SCH ×3 (08:39→20:57)
[2020-09-20] MEDS: SYMBICORT 160-4.5 MCG INHALER INHALATION SCH ×2 (08:39→19:29)
[2020-09-20] MEDS: amLODIPine 5 MG TAB PO SCH (08:39)
[2020-09-20 11:29] LABS: Anisocytosis Slight; Basophils # (A) 0.1 k/uL (0-0.2); Basophils % (A) 2 %; Eosinophils # (A) 0.2 k/uL (0-0.7); Eosinophils % (A) 2 %; HCT 31.8 % (39.0-53.0); HGB 10.9 gm/dL (13.0-17.5); Lymphocytes # (A) 1.3 k/uL (1.0-4.8); Lymphocytes % (A) 16 %; MCH 27.5 pg (25.0-35.0); MCHC 34.4 g/dL (31.0-37.0); MCV 80.2 fL (80.0-100.0); Microcytosis Slight; Monocytes # (A) 0.4 k/uL (0-1.0); Monocytes % (A) 5 %; Neutrophils # (A) 5.7 k/uL (1.3-7.7); Neutrophils % (A) 73 %; Platelet Count 246 k/uL (150-450); Poikilocytosis Slight; RBC 3.97 m/uL (4.30-5.90); RDW 19.8 % (11.5-15.5); WBC 7.9 k/uL (3.8-10.6)
[2020-09-20 11:51] LABS: Calcium 8.8 mg/dL (8.4-10.2); Potassium 4.7 mmol/L (3.5-5.1)
--- NOTE | 2020-09-20 12:19 | US ---
EXAMINATION TYPE: US lower ext pseudo artery RT DATE OF EXAM: 09/20/2020 COMPARISON: NONE CLINICAL HISTORY: right groin pain. EXAM PERFORMED: Grayscale and color Doppler duplex imaging performed of the groin, post cardiac veena ter to assess for pseudoaneurysm. SIDE PERFORMED: Right Color and Waveform Doppler performed to assess for the presence of pseudoaneurysm; Is there ultrasound evidence of a pseudoaneurysm: No Is there evidence of AV shunting: No Is there a fluid collection present: No IMPRESSION: No diagnostic evidence of pseudoaneurysm.
--- NOTE | 2020-09-20 12:21 | P.PN ---
Subjective Progress Note Date: 09/20/20 Principal diagnosis: Right groin pain Patient's pain has improved in the right groin. Never did feel a bulge there. Tolerating diet. CAT scan shows no evidence of hernia however patient has evidence of previous operative repairs. He has known to our service. Patient has had he believes 3 inguinal hernia repairs on the right-hand side. He has had intermittent pain over the years. Was told he had a pinched nerve after the first surgery. Objective - Vital Signs Vital signs: Vital Signs Temp 97.6 F 09/20/20 08:29 Pulse 74 09/20/20 11:49 Resp 18 09/20/20 08:29 BP 139/64 09/20/20 08:29 Pulse Ox 97 09/20/20 08:29 Intake & Output 09/19/20 09/20/20 09/20/20 18:59 06:59 18:59 Intake Total 720 240 420 Output Total 1575 900 350 Balance -855 -660 70 Weight 80.5 kg Intake: Oral 720 240 420 Output: Urine 1575 900 350 Other: Voiding Method Urinal Urinal Urinal # Voids 1 # Bowel Movements 1 - Exam Abdomen: Soft, nontender, nondistended, no palpable hernia, right groin nontender - Labs CBC & Chem 7: 09/20/20 10:17 09/20/20 10:17 Labs: Abnormal Lab Results - Last 24 Hours (Table) 09/20/20 09/20/20 Range/Units 10:17 10:17 RBC 3.97 L (4.30-5.90) m/uL Hgb 10.9 L (13.0-17.5) gm/dL Hct 31.8 L (39.0-53.0) % RDW 19.8 H (11.5-15.5) % BUN 30 H (9-20) mg/dL Creatinine 2.16 H (0.66-1.25) mg/dL Glucose 107 H (74-99) mg/dL Lactate Dehydrogenase 2885 H (313-618) U/L Assessment and Plan (1) Right groin pain Narrative/Plan: Patient doing well at this time. Continue diet as tolerated. Continue analgesics. Increase activity. No surgical intervention planned. Current Visit: Yes Status: Acute Code(s): R10.31 - RIGHT LOWER QUADRANT PAIN SNOMED Code(s): 70455594419492103
--- NOTE | 2020-09-20 12:31 | P.PN ---
Subjective Progress Note Date: 09/20/20 HISTORY OF PRESENT ILLNESS: This is a 80-year-old male with a past medical history significant for hypertension, pulmonary fibrosis, chronic kidney disease, hyperlipidemia, and coronary artery disease with previous PCI to the LAD. Patient follows in the office with Dr. Apple. We have been asked to see the patient in consultation for abnormal troponins. Patient examined at the bedside. Patient states he was placed on Plavix last year after he had a stent placement. He states he had been tolerating this okay until the past few months when he states that it has been "tearing up my stomach". He states he would take omeprazole in the morning with his Plavix which seemed to help his symptoms and then he began having symptoms again in the afternoon and he was taking multiple meds. He states he called the office earlier this week and was switched to Brilinta. He states he took this Sunday morning and Sunday afternoon. He began having severe shortness of breath so he did not continue taking this medication and presented to the hospital for evaluation. Patient states he has not had any shortness of breath since stopping the Brilinta. EKG reveals sinus mechanism with no signs of acute ischemia. Chest xray no acute process. Correlate for COPD. VQ scan: Low or intermediate probability for PE Venous Doppler: Negative for DVT bilaterally Laboratory data: WBC 10.1. Hemoglobin 11.7. Platelet count 289. D-dimer 0.64. Sodium 140. Potassium 4.7. BUN 37. Creatinine 2.43. Troponin 0.087. 0.067. 0.059. BNP 2110. Current home cardiac medications include Brilinta 60mg BID, Coreg 12.5 mg twice a day, amlodipine 2.5 mg daily, pravastatin 40 mg daily, losartan 25 mg daily and aspirin 81 mg daily Most recent echocardiogram obtained in January 2020 revealed ejection fraction 50-55%, mild mitral regurgitation, and mild tricuspid regurgitation Cardiac catheterization history: January 2020 with PCI to the proximal LAD. 09/20/2020 Patient examined this morning at the bedside. Patient has been switched from Brilinta to effient. He denies any further shortness of breath. He denies chest pain or pressure. He reports right groin pain this morning. US negative for pseudoaneurysm. Echocardiogram completed revealed ejection fraction 55-60%, mild mitral regurgitation, and mild tricuspid regurgitation. PHYSICAL EXAM: VITAL SIGNS: Reviewed. GENERAL: Well-developed in no acute distress. HEENT: Head is normocephalic. Pupils are equal, round. Sclerae anicteric. Mucous membranes of the mouth are moist. Neck supple. No JVD or thyromegaly LUNGS: Respirations even and unlabored. Lungs diminished bilaterally. HEART: Regular rate and rhythm. S1 and S2 heard. ABDOMEN: Soft. Nondistended. Nontender. EXTREMITIES: Normal range of motion. No clubbing or cyanosis. Peripheral pulses intact. No lower extremity edema NEUROLOGIC: Awake and alert. Oriented x 3. ASSESSMENT: Shortness of breath, s/p Brilinta Intolerance to Plavix Coronary artery disease with previous PCI to the LAD, January 2020 Abnormal troponins Hypertension Hyperlipidemia Chronic kidney disease Pulmonary fibrosis PLAN: Continue current cardiac medications Further workup of right groin pain per internal medicine Patient is stable discharge from a cardiac standpoint We will sign off. Please reconsult if needed. Nurse practitioner note has been reviewed by physician. Signing provider agrees with the documented findings, assessment, and plan of care. Objective - Vital Signs Vital signs: Vital Signs Temp 97.6 F 09/20/20 08:29 Pulse 74 09/20/20 11:49 Resp 18 09/20/20 08:29 BP 139/64 09/20/20 08:29 Pulse Ox 97 09/20/20 08:29 Intake & Output 09/19/20 09/20/20 09/20/20 18:59 06:59 18:59 Intake Total 720 240 420 Output Total 1575 900 350 Balance -855 -660 70 Weight 80.5 kg Intake: Oral 720 240 420 Output: Urine 1575 900 350 Other: Voiding Method Urinal Urinal Urinal # Voids 1 # Bowel Movements 1 - Labs CBC & Chem 7: 09/20/20 10:17 09/20/20 10:17 Labs: Abnormal Lab Results - Last 24 Hours (Table) 09/20/20 09/20/20 Range/Units 10:17 10:17 RBC 3.97 L (4.30-5.90) m/uL Hgb 10.9 L (13.0-17.5) gm/dL Hct 31.8 L (39.0-53.0) % RDW 19.8 H (11.5-15.5) % BUN 30 H (9-20) mg/dL Creatinine 2.16 H (0.66-1.25) mg/dL Glucose 107 H (74-99) mg/dL Lactate Dehydrogenase 2885 H (313-618) U/L
[2020-09-20] MEDS: SUCRALFATE 1 GM TAB PO SCH ×3 (12:52→20:57)
--- NOTE | 2020-09-20 13:41 | P.PN ---
Subjective Progress Note Date: 09/20/20 Principal diagnosis: Dyspnea This is a very pleasant 80-year-old gentleman with a history of interstitial lung disease/pulmonary fibrosis, pulmonary embolism back in 2011, obstructive sleep apnea intolerant to CPAP, prostate cancer with radiation treatments, nephrolithiasis, migraines, coronary artery disease with previous stent placement anxiety/depression, hearing disorder, hypertension, hyperlipidemia. He also has chronic obstructive pulmonary disease and a remote history of chronic tobacco dependence quit 20 years ago. He follows with Dr. Conrad in our office. He has a nebulizer was treatments that he rarely uses. No home oxygen. He presented to the emergency room 2 days ago with complaints of increasing shortness of breath and dyspnea on exertion. The day prior he had started Brilinta as he was intolerant to Plavix due to abdominal discomfort. Chest x-ray revealed evidence of COPD but no acute pulmonary process. VQ scan was nondiagnostic for PE. Echocardiogram revealed preserved left ventricular systolic function with ejection fraction 55-60%. Right ventricle normal in size. No significant valvular abnormality. White count 8.6. Hemoglobin 11.0. Platelets 263. Sodium 140. Potassium 4.4. Creatinine 2.26. Troponin 0.067. 0.059. Coronavirus not detected. He is seen today in consultation. He is currently playing quite flat in bed. Awake and alert in no acute distress. Denies any worsening shortness of breath, cough or congestion. He's been initiated on Symbicort and DuoNeb inhalations. His Brilinta was discontinued. He's been initiated on Effient. The patient is seen today 09/19/2020 in follow-up on the selective care unit. He is currently sitting up in bed. Awake and alert in no acute distress. He is maintaining good O2 saturations in the high 90s on 2 L/m per nasal cannula. He is tolerating the Effient. No worsening shortness of breath. He is having some complaints of right groin pain. He did develop some severe pain last evening. He has a previous history of right inguinal hernia repair. Computed tomography scan of the pelvis is pending. Surgical services are on consult. On 09/20/2020 patient seen in follow-up on selective care unit, he is awake and alert, in no acute distress, currently on 2 L of oxygen pulse ox is 96%, no complaints of chest discomfort, no fever chills, no cough. His chest x-ray showed no acute pulmonary process. VQ scan was nondiagnostic for pulmonary embolism with low or intermediate probability for pulmonary embolism. Lower extremity Dopplers were negative for evidence of DVT. Today's labs have been reviewed, his white blood cell, 7.9, hemoglobin is 10.9, electrolytes are within normal limits, B1 is 30 creatinine is 2.16. History The abdomen showed severe splenomegaly, no evidence of inguinal hernia, and atrophic right kidney with bilateral nonobstructing punctate calculi. Hematology, in general surgery have been consulted. Patient is currently on Symbicort, he is on nebulized bronchodilators. Objective - Vital Signs Vital signs: Vital Signs Temp 97.8 F 09/20/20 12:25 Pulse 74 09/20/20 12:25 Resp 18 09/20/20 12:25 BP 166/77 09/20/20 12:25 Pulse Ox 95 09/20/20 12:25 Intake & Output 09/19/20 09/20/20 09/20/20 18:59 06:59 18:59 Intake Total 720 240 420 Output Total 1575 900 350 Balance -855 -660 70 Weight 80.5 kg Intake: Oral 720 240 420 Output: Urine 1575 900 350 Other: Voiding Method Urinal Urinal Urinal # Voids 1 # Bowel Movements 1 - Exam GENERAL EXAM: Alert, pleasant, 80-year-old, white male under liters of oxygen and pulse ox of 95% comfortable in no apparent distress. HEAD: Normocephalic/atraumatic. EYES: Normal reaction of pupils, equal size. Conjunctiva pink, sclera white. NOSE: Clear with pink turbinates. THROAT: No erythema or exudates. NECK: No masses, no JVD, no thyroid enlargement, no adenopathy. CHEST: No chest wall deformity. Symmetrical expansion. LUNGS: Equal air entry with no crackles, wheeze, rhonchi or dullness. CVS: Regular rate and rhythm, normal S1 and S2, no gallops, no murmurs, no rubs ABDOMEN: Soft, nontender. No hepatosplenomegaly, normal bowel sounds, no guarding or rigidity. EXTREMITIES: No clubbing, no edema, no cyanosis, 2+ pulses and upper and lower extremities. MUSCULOSKELETAL: Muscle strength and tone normal. SPINE: No scoliosis or deformity SKIN: No rashes CENTRAL NERVOUS SYSTEM: Alert and oriented -3. No focal deficits, tone is normal in all 4 extremities. PSYCHIATRIC: Alert and oriented -3. Appropriate affect. Intact judgment and insight. - Labs CBC & Chem 7: 09/20/20 10:17 09/20/20 10:17 Labs: Abnormal Lab Results - Last 24 Hours (Table) 09/20/20 09/20/20 Range/Units 10:17 10:17 RBC 3.97 L (4.30-5.90) m/uL Hgb 10.9 L (13.0-17.5) gm/dL Hct 31.8 L (39.0-53.0) % RDW 19.8 H (11.5-15.5) % BUN 30 H (9-20) mg/dL Creatinine 2.16 H (0.66-1.25) mg/dL Glucose 107 H (74-99) mg/dL Lactate Dehydrogenase 2885 H (313-618) U/L Assessment and Plan Plan: Assessment: #1. Shortness of breath, of unknown etiology, patient thinks this may have been related to new medication Brilinta. Chest x-ray showed no acute cardiopulmonary process, VQ scan showed low to intermediate probability of PE, lower extremity Dopplers were negative for DVT #2. History of interstitial lung disease/pulmonary fibrosis #3. History of pulmonary embolism in 2011 #4. Obstructive sleep apnea intolerant to CPAP #5. History of prostate cancer with radiation treatments #6. Nephrolithiasis #7. Migraine headaches #8. Coronary artery disease with previous stent placement #9. Anxiety/depression #10. Hypertension #11. Hyperlipidemia #12. History of COPD with remote history of chronic tobacco dependence, in remission for last 20 years #13. Severe splenomegaly, hematology is following #14. Inguinal hernia Plan: No acute events overnight, no worsening dyspnea, Weaning FiO2 to maintain O2 saturation at or above 90% Continue Symbicort Continue antiplatelet therapy per cardiology recommendations We'll continue to follow I performed a history & physical examination of the patient and discussed their management with my nurse practitioner, Delaney Hamilton. I reviewed the nurse practitioner's note and agree with the documented findings and plan of care. Lung sounds are positive for diminished breath sounds The findings and the impression was discussed with the patient. I attest to the documentation by the nurse practitioner. Time with Patient: Less than 30
[2020-09-20 13:53] LABS: Erythrocyte Sedimentation Rate 12 mm/hr (0-15)
--- NOTE | 2020-09-20 14:43 | US ---
EXAMINATION TYPE: US liver DATE OF EXAM: 09/20/2020 COMPARISON: CLINICAL HISTORY: splenomegaly. No pain. Patient states having GB removed. NPO. EXAM MEASUREMENTS: Liver Length: 16.7 cm CBD: 0.9 cm Right Kidney: 8.2 x 3.0 x 4.1 cm Suboptimal imaging due to patient breathing Pancreas: Tail obscured by overlying bowel gas. Main pancreatic duct= 2.9 mm. Splenic vein = 1.5 c m. Liver: Echogenic and heterogenous. Coarse. Gallbladder: In GB fossa, anechoic area visualized. Evidence for sonographic Lake's sign: neg CBD: wnl Right Kidney: Appears small in size. IMPRESSION: 1. Nonspecific pattern of the liver can be seen with hepatitis or diffuse hepatocellular disease. 2. There is a anechoic area in the gallbladder fossa and the common bile duct measures 0.9 cm and dil ator. Recommend CT scan to assess the gallbladder fossa.
--- NOTE | 2020-09-20 16:16 | P.PN ---
Subjective Progress Note Date: 09/20/20 Mr. Teixeira is a 79-year-old male well-known to my practice with a long-standing history of coronary artery disease chronic obstructive pulmonary disease PE pulmonary fibrosis presents to the emergency room for dyspnea. Symptoms began yesterday. States they happened intermittently does not seem to be related to exertion on exertion by the breathing worse symptoms began almost or in accordance with stopping Plavix and switching to Brilinta. Patient denies orthopnea denies associated chest pain fever chills or cough. Patient's admitting to intermittent chronic dizziness lightheadedness although this is not new and is unchanged patient had initially stopped his anticoagulation Plavix because it was giving him an upset stomach was recently placed on Brilinta and feels this may have caused his symptoms as stated before patient was having significant epigastric abdominal discomfort with Plavix pat ient recently admitted for hip fracture April travel to [place] last weekend otherwise no new complaints 09/18/2020 patient was originally admitted with abdominal pain probably secondary to Plavix patient was changed to Effient, and January patient underwent angioplasty with stent placement had drug-eluting stents placed hence the reason for the anticoagulant therapy. While patient was in the hospital waiting to be discharged he developed moderate to severe right groin pain suspect recurrent inguinal hernia 09/19/2020 From a medical/cardiology point of view patient is cleared to be discharged however as stated in yesterday's note he developed moderate to severe right groin pain, surgical consult was obtained as patient's had hernia repair with recurrence and second repair at this site in the past. The surgeon of record Rodriguez Reece MD examined patient, patient was exquisitely tender to touch, decision was made to obtain CT of pelvis to aid in assessment before patient sent home 09/20/2020 continues to have right groin discomfort. CT of pelvis reported severe splenomegaly measuring at least 18 cm, no inguinal hernia, atrophic right kidney with bilateral nonobstructing punctate calculi. Denies chest pain, palpitations or increased shortness of breath. Continues on nebulized bronchodilators ,LABA, Maintaining O2 sats in the 90s on 2 L nasal cannula. Labs pending. Objective - Vital Signs Vital signs: Vital Signs Temp 97.6 F 09/20/20 08:29 Pulse 69 09/20/20 09:08 Resp 18 09/20/20 08:29 BP 139/64 09/20/20 08:29 Pulse Ox 97 09/20/20 08:29 Intake & Output 09/19/20 09/20/20 09/20/20 18:59 06:59 18:59 Intake Total 720 240 420 Output Total 1575 900 350 Balance -855 -660 70 Weight 80.5 kg Intake: Oral 720 240 420 Output: Urine 1575 900 350 Other: Voiding Method Urinal Urinal Urinal # Voids 1 # Bowel Movements 1 - Exam - Exam General: [Patient awake, alert and oriented times 3. Patient in no acute distress.] HEENT: [PERRL. EOMI. No pharyngeal erythema or exudate.] Neck: [No adenopathy.] Cardiac: [Heart regular in rate and rhythm. No S3. No S4. No clicks, rubs. No murmur.] Lungs: [Clear to auscultation bilaterally.] Abdomen: [No mass. No organomegaly. Bowel sounds presnt and normoactive in all 4 quadrants.] Extremes: [No edema no cyanosis no claudication normal pulses] : right inguinal hernia discomfort started last night causing patient difficulty to ambulate Musculoskeletal: [No joint erythema, edema or tenderness.] Skin: [No rash.] Neurologic: [No lateralizing deficits. CN II - XII grossly intact.] Lymphatic: [No adenopathy.] - Labs CBC & Chem 7: 09/20/20 10:17 09/20/20 10:17 Assessment and Plan Assessment: 1) Acute dyspnea, etiology unclear, suspect induced by new medication Brilenta Current Visit: Yes Status: Acute Code(s): R06.00 - DYSPNEA, UNSPECIFIED SNOMED Code(s): 992645370 (2) Elevated troponin Current Visit: Yes Status: Acute Code(s): R77.8 - OTHER SPECIFIED ABNORMALITIES OF PLASMA PROTEINS SNOMED Code(s): 928116428 (3) CKD (chronic kidney disease), stage III Current Visit: No Status: Acute Code(s): N18.30 - CHRONIC KIDNEY DISEASE, STAGE 3 UNSPECIFIED SNOMED Code(s): 114957582 (4) COPD (chronic obstructive pulmonary disease) Current Visit: No Status: Acute Code(s): J44.9 - CHRONIC OBSTRUCTIVE PULMON EMRE DISEASE, UNSPECIFIED SNOMED Code(s): 91472939 (5) Coronary artery disease Current Visit: No Status: Acute Code(s): I25.10 - ATHSCL HEART DISEASE OF [place] CORONARY ARTERY W/O ANG PCTRS SNOMED Code(s): 58264589 (6) Essential (primary) hypertension Current Visit: No Status: Acute Code(s): I10 - ESSENTIAL (PRIMARY) HYPERTENSION SNOMED Code(s): 89412296 (7) H/O heart artery stent Current Visit: No Status: Acute Code(s): Z95.5 - PRESENCE OF CORONARY ANGIOPLASTY IMPLANT AND GRAFT SNOMED Code(s): 117078434 (8) H/O prostate cancer Current Visit: No Status: Acute Code(s): Z85.46 - PERSONAL HISTORY OF M ALIGNANT NEOPLASM OF PROSTATE SNOMED Code(s): 260363873 (9) Interstitial lung disease Current Visit: No Status: Acute Code(s): J84.9 - INTERSTITIAL PULMONARY DISEASE, UNSPECIFIED SNOMED Code(s): 772521360 (10) Unstable angina Current Visit: No Status: Acute Code(s): I20.0 - UNSTABLE ANGINA SNOMED Code(s): 3220003 (11) severe splenomegaly, hematology following Plan: Continue on current medication regime ,monitoring and symptomatic treatment. Labs pending .Surgical evaluation of right groin pending. Antiplatelet tx as per cardiology. Discussed with cardiology, ultrasound of right groin ordered. Nina-[place] virus and CMV labs ordered. Liver ultrasound pending. Weaning of oxygen in progress. The impression and plan of care has been dictated as directed. : I performed a history and examination of this patient, discussed the same with the dictator. I agree with the dictator's note ,documented as a scribe. Any additional findings or plans will be noted.
--- NOTE | 2020-09-20 19:34 | P.CONS ---
History of Present Illness - Reason for Consult Consult date: 09/20/20 splenomegaly Requesting physician: Barrington Goyal Jr - Chief Complaint SOB - History of Present Illness Mr. Ward is a pleasant male pt of Dr. Henriquez with multiple medical problems. PMH includes HTN, CAD, and hypercholesterolemia. He was admitted to the hospital 02/02 for GA, required stenting. Creatinine of 1.95, Hgb 11.5, WBC 8.9 and platelets 209 at that visit. BENIGNO positive. Rerred to Rheumatology, and labs done on 02/24/20 showed elevated kappa light chain at 77.7 mg/L as well as elevated lambda light chain at to 3.4 mg/L with a ratio 2.33, upper limit of normal being 1.65. The patient also had a 15% monoclonal spike on immunofixation. He was therefore to Dr. Henriquez for further evaluation and recommendations. 01/03 US KUB had revealed enlarged spleen at 18.[address] brain without contrast in 02/02 had shown age-related changes. Ultrasound KUB in 02/02 had shown splenomegaly again, as well as non-obstructing right renal calculi. 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 Both light chains were again elevated in the serum, with ratio 2.11. Light chains were also elevated in the urine with ratio normal. No measurable M protein was noted in the urine or serum. He was placed on observation after complete work up in Mar. Admitted to the hospital in early 05/06 with accidental fall and right hip fracture. He underwent right hemiarthroplasty. Hemoglobin had dropped during his hospitalization to 8.7. He was discharged on oral iron. 06/06 Hgb was back up to 12.3. He had follow-up due this mo 10/12 at 11 AM. 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 Hx of prostate cancer, treated with radiation in 2019, currently in complete remission per pt. Pt admitted for c/o of SOB on exertion, he has rt groin pain that is keeping him from being ambulatory. Denies liver disease, hepatitis, ETOH abuse. BLE neg for DVT, VQ low probability for PE. Troponins elevated. Review of Systems 10 point ROS is negative except as stated in HPI Past Medical History Past Medical History: Cancer, Chest Pain / Angina, COPD, GERD/Reflux, Hearing Disorder / Deafness, Hyperlipidemia, Hypertension, Myocardial Infarction (GA), Osteoarthritis (OA), Prostate Disorder, Pulmonary Embolus (PE) Additional Past Medical History / Comment(s): Interstitial lung disease, pulmonary fibrosis, PE in 2011-pt cannot recall laterality, past home O2 use but none now, RIANA-cannot tolerate Cpap, prostate cancer with radiation treatment, skin cancer with removals, nephrolithiasis, migraines, compression fracture low back, bilateral elbow fractures with surgery, PUD, jaundiced as a child, CURYUNG bilaterally. "mild" GA in january 2020. Last Myocardial Infarction Date:: January 2020 History of Any Multi-Drug Resistant Organisms: None Reported Past Surgical History: Appendectomy, Cholecystectomy, Heart Catheterization, Heart Catheterization With Stent, Hernia Repair, Joint Replacement, Orthopedic Surgery Additional Past Surgical History / Comment(s): Prostate biopsy, L hand partial amp of 2 fingers, L knee ACL repair, R knee arthroscopy, bilateral total elbow replacements per pt, bilateral cataract removals, L inguinal hernia repair, cardiac caths x 2, EGD, colonoscopy, skin cancer removals. Past Anesthesia/Blood Transfusion Reactions: No Reported Reaction Date of Last Stent Placement:: January 2020. Past Psychological History: Anxiety, Depression Additional Psychological History / Comment(s): Pt resides with his spouse. He is independent. Smoking Status: Former smoker Past Alcohol Use History: None Reported Additional Past Alcohol Use History / Comment(s): Pt started smoking in 1961 and quit in 2004. Past Drug Use History: None Reported - Past Family History Brother(s) Family Medical History: Cancer Additional Family Medical History / Comment(s): ONE BROTHER HAD LUNG CA & ANOTHER HAD MELANOMA. Brother just recently last week. Mother Family Medical History: AICD/Pacemaker Father Family Medical History: No Reported History Sister(s) Family Medical History: No Reported History Medications and Allergies Home Medications Medication Instructions Recorded Confirmed Type Pantoprazole Sodium [Protonix] 40 mg PO DAILY 03/08/16 09/16/20 History Cholecalciferol [Vitamin D3 (25 1,000 unit PO HS 12/12/18 09/16/20 History Mcg = 1000 Iu)] Vit C/E/Zn/Coppr/Lutein/Zeaxan 1 cap PO BID 12/12/18 09/16/20 History [Preservision Areds 2 Softgel] calcium polycarbophiL [Fibercon] 625 mg PO HS 12/12/18 09/16/20 History Pravastatin Sodium [Pravachol] 40 mg PO HS tab 04/21/20 09/16/20 Rx carvediloL [Coreg*] 12.5 mg PO BID-W/MEALS tab 04/21/20 09/16/20 Rx LORazepam [Ativan] 0.5 mg PO TID 09/16/20 09/16/20 History Losartan [Cozaar] 25 mg PO DAILY 09/16/20 09/16/20 History Ticagrelor [Brilinta] 60 mg PO BID 09/16/20 09/16/20 History amLODIPine [Norvasc] 2.5 mg PO DAILY 09/16/20 09/16/20 History Allergies Allergy/AdvReac Type Severity Reaction Status Date / Time alprazolam [From Xanax] AdvReac Unknown Verified 09/16/20 18:32 Physical Exam Vitals: Vital Signs Temp Pulse Pulse Resp BP Pulse Ox 09/20/20 12:25 97.8 F 74 18 166/77 95 09/20/20 11:49 74 09/20/20 11:32 72 09/20/20 09:08 69 09/20/20 08:48 68 09/20/20 08:29 97.6 F 75 18 139/64 97 09/20/20 04:00 98 F 74 16 146/67 95 09/20/20 00:00 97.7 F 83 16 170/77 93 L 09/19/20 20:00 97.7 F 76 18 178/79 94 L 09/19/20 16:00 98.0 F 76 75 16 174/75 93 L 09/19/20 15:46 74 09/19/20 14:00 18 Intake and Output 09/19/20 09/20/20 09/20/20 22:59 06:59 14:59 Intake Total 480 420 Output Total 1350 200 350 Balance -870 -200 70 Intake: Oral 480 420 Output: Urine 1350 200 350 Other: Voiding Method Urinal Urinal Urinal # Voids 1 1 # Bowel Movements 1 Weight 80.5 kg - Constitutional General appearance: average body habitus, cooperative, no acute distress - EENT Eyes: anicteric sclerae, EOMI ENT: hearing grossly normal, normal oropharynx - Neck Neck: no lymphadenopathy - Respiratory Respiratory: bilateral: CTA - Cardiovascular Rhythm: regular Heart sounds: normal: S1, S2 Abnormal Heart Sounds: no systolic murmur, no diastolic murmur, no rub, no S3 Gallop, no S4 Gallop, no click, no other - Gastrointestinal General gastrointestinal: no absent bowel sounds, no decreased bowel sounds, no distended, no hepatomegaly, no hyperactive bowel sounds, normal bowel sounds, no organomegaly, no rigid, no scaphoid, soft, splenomegaly (3 FB below costal margin), no tenderness, no umbilical hernia, no ventral hernia - Genitourinary rt inguinal pain with palpation, no hernia or mass felt, pedal pulse is 2+, no lower extremity swelling - Integumentary Integumentary: normal - Neurologic Neurologic: CNII-XII intact - Musculoskeletal Musculoskeletal: strength equal bilaterally - Psychiatric Psychiatric: A&O x's 3, appropriate affect, intact judgment & insight Results CBC & Chem 7: 09/20/20 10:17 09/20/20 10:17 Labs: Abnormal Lab Results - Last 24 Hours (Table) 09/20/20 09/20/20 Range/Units 10:17 10:17 RBC 3.97 L (4.30-5.90) m/uL Hgb 10.9 L (13.0-17.5) gm/dL Hct 31.8 L (39.0-53.0) % RDW 19.8 H (11.5-15.5) % BUN 30 H (9-20) mg/dL Creatinine 2.16 H (0.66-1.25) mg/dL Glucose 107 H (74-99) mg/dL Lactate Dehydrogenase 2885 H (313-618) U/L Comments: VQ report reviewed CT scan - pelvis: report reviewed Venous US: report reviewed Assessment and Plan (1) Right groin pain Narrative/Plan: Surgery consulted for possible hernia. Current Visit: Yes Status: Acute Priority: High Code(s): R10.31 - RIGHT LOWER QUADRANT PAIN SNOMED Code(s): 66281471791195077 (2) Splenomegaly Narrative/Plan: US to evaluate liver ordered. Inflammatory labs ordered, as well as monoclonal gammopathy labs Current Visit: Yes Status: Chronic Priority: Medium Code(s): R16.1 - SPLENOMEGALY, NOT ELSEWHERE CLASSIFIED SNOMED Code(s): 59072822 (3) MGUS (monoclonal gammopathy of unknown significance) Narrative/Plan: Monoclonal gammopathy labs ordered Current Visit: Yes Status: Chronic Priority: Medium Code(s): D47.2 - MO NOCLONAL GAMMOPATHY SNOMED Code(s): 142677258 Plan: Doctor attests: I performed a history and physical examination of this patient, developed impression and plan of care, discussed with dictator. I agree with dictators note, documented as a scribe.
[2020-09-20] MEDS: CHOLECALCIFEROL 25 MCG (1000 IU) TABLET PO SCH (20:57)
[2020-09-21 03:45] LABS: Protein, Total 6.2 g/dL (6.2-8.2)
[2020-09-21 04:35] LABS: EBV-EA (IgG) >8.0 AI; EBV-EBNA(IgG) >8.0 AI; EBV-VCA (IgG) >8.0 AI
[2020-09-21 04:38] LABS: EBV-VCA (IgM) 1.7 AI
[2020-09-21] MEDS: SODIUM CHLORIDE 0.9% 1,000 ML IV SCH (05:54)
[2020-09-21] MEDS: PANTOPRAZOLE 40 MG TABLET PO SCH (06:35)
[2020-09-21] MEDS: carvediloL 12.5 MG TAB PO SCH (06:35)
[2020-09-21] MEDS: SUCRALFATE 1 GM TAB PO SCH (06:35)
[2020-09-21] MEDS: ATORVASTATIN 40 MG TAB PO SCH (07:53)
[2020-09-21] MEDS: LORazepam 0.5 MG TAB PO SCH (07:53)
[2020-09-21] MEDS: PRASUGREL 10 MG TAB PO SCH (07:53)
[2020-09-21] MEDS: ASPIRIN 81 MG PO SCH (07:53)
[2020-09-21] MEDS: VIT A,C & E-LUTEIN-MINERALS 1 EACH TAB PO SCH (07:53)
[2020-09-21] MEDS: amLODIPine 5 MG TAB PO SCH (07:53)
[2020-09-21 07:58] VITALS: TEMP 98
[2020-09-21] MEDS: IPRATROPIUM-ALBUTEROL 3 ML NEB INHALATION SCH ×2 (08:12→11:44)
[2020-09-21] MEDS: SYMBICORT 160-4.5 MCG INHALER INHALATION SCH (08:12)
[2020-09-21 08:43] LABS: Calcium 9.2 mg/dL (8.4-10.2); Potassium 4.6 mmol/L (3.5-5.1)
[2020-09-21 08:49] LABS: Anisocytosis Slight; Basophils # (A) 0.2 k/uL (0-0.2); Basophils % (A) 2 %; Eosinophils # (A) 0.2 k/uL (0-0.7); Eosinophils % (A) 2 %; HCT 36.1 % (39.0-53.0); HGB 12.1 gm/dL (13.0-17.5); Lymphocytes # (A) 1.7 k/uL (1.0-4.8); Lymphocytes % (A) 17 %; MCH 26.8 pg (25.0-35.0); MCHC 33.6 g/dL (31.0-37.0); MCV 79.7 fL (80.0-100.0); Mean Platelet Volume 10.8; Microcytosis Slight; Monocytes # (A) 0.5 k/uL (0-1.0); Monocytes % (A) 5 %; Neutrophils # (A) 7.5 k/uL (1.3-7.7); Neutrophils % (A) 71 %; Platelet Count 288 k/uL (150-450); Poikilocytosis Moderate; RBC 4.53 m/uL (4.30-5.90); RDW 19.9 % (11.5-15.5); WBC 10.4 k/uL (3.8-10.6)
--- NOTE | 2020-09-21 10:31 | P.PN ---
Subjective Progress Note Date: 09/21/20 Principal diagnosis: Dyspnea This is a very pleasant 80-year-old gentleman with a history of interstitial lung disease/pulmonary fibrosis, pulmonary embolism back in 2011, obstructive sleep apnea intolerant to CPAP, prostate cancer with radiation treatments, nephrolithiasis, migraines, coronary artery disease with previous stent placement anxiety/depression, hearing disorder, hypertension, hyperlipidemia. He also has chronic obstructive pulmonary disease and a remote history of chronic tobacco dependence quit 20 years ago. He follows with Dr. Conrad in our office. He has a nebulizer was treatments that he rarely uses. No home oxygen. He presented to the emergency room 2 days ago with complaints of increasing shortness of breath and dyspnea on exertion. The day prior he had started Brilinta as he was intolerant to Plavix due to abdominal discomfort. Chest x-ray revealed evidence of COPD but no acute pulmonary process. VQ scan was nondiagnostic for PE. Echocardiogram revealed preserved left ventricular systolic function with ejection fraction 55-60%. Right ventricle normal in size. No significant valvular abnormality. White count 8.6. Hemoglobin 11.0. Platelets 263. Sodium 140. Potassium 4.4. Creatinine 2.26. Troponin 0.067. 0.059. Coronavirus not detected. He is seen today in consultation. He is currently playing quite flat in bed. Awake and alert in no acute distress. Denies any worsening shortness of breath, cough or congestion. He's been initiated on Symbicort and DuoNeb inhalations. His Brilinta was discontinued. He's been initiated on Effient. The patient is seen today 09/19/2020 in follow-up on the selective care unit. He is currently sitting up in bed. Awake and alert in no acute distress. He is maintaining good O2 saturations in the high 90s on 2 L/m per nasal cannula. He is tolerating the Effient. No worsening shortness of breath. He is having some complaints of right groin pain. He did develop some severe pain last evening. He has a previous history of right inguinal hernia repair. Computed tomography scan of the pelvis is pending. Surgical services are on consult. On 09/20/2020 patient seen in follow-up on selective care unit, he is awake and alert, in no acute distress, currently on 2 L of oxygen pulse ox is 96%, no complaints of chest discomfort, no fever chills, no cough. His chest x-ray showed no acute pulmonary process. VQ scan was nondiagnostic for pulmonary embolism with low or intermediate probability for pulmonary embolism. Lower extremity Dopplers were negative for evidence of DVT. Today's labs have been reviewed, his white blood cell, 7.9, hemoglobin is 10.9, electrolytes are within normal limits, B1 is 30 creatinine is 2.16. History The abdomen showed severe splenomegaly, no evidence of inguinal hernia, and atrophic right kidney with bilateral nonobstructing punctate calculi. Hematology, in general surgery have been consulted. Patient is currently on Symbicort, he is on nebulized bronchodilators. On 09/21/2020 patient seen in follow-up on selective care unit. He is awake and alert, in no acute distress, he is currently on room air, his pulse ox is b etween 89-90%, he is answering questions appropriately, no altered mentation, has been afebrile, his had no acute events overnight. Lung sounds reveal some crackles at the bases, no wheezing. Patient states his Symbicort makes him more short of breath. She is not on any maintenance inhalers at home. He follows with Dr. Conrad in the pulmonary clinic. Objective - Vital Signs Vital signs: Vital Signs Temp 98 F 09/21/20 07:55 Pulse 74 09/21/20 08:23 Resp 18 09/21/20 07:55 BP 165/76 09/21/20 07:55 Pulse Ox 94 L 09/21/20 08:12 Intake & Output 09/20/20 09/21/20 09/21/20 18:59 06:59 18:59 Intake Total 660 Output Total 575 500 Balance 85 -500 Weight 88.3 kg Intake: Oral 660 Output: Urine 575 500 Other: Voiding Method Urinal # Voids 2 1 # Bowel Movements 1 - Exam GENERAL EXAM: Alert, pleasant, 80-year-old, white male under liters of oxygen and pulse ox of 95% comfortable in no apparent distress. HEAD: Normocephalic/atraumatic. EYES: Normal reaction of pupils, equal size. Conjunctiva pink, sclera white. NOSE: Clear with pink turbinates. THROAT: No erythema or exudates. NECK: No masses, no JVD, no thyroid enlargement, no adenopathy. CHEST: No chest wall deformity. Symmetrical expansion. LUNGS: Equal air entry with no crackles, wheeze, rhonchi or dullness. CVS: Regular rate and rhythm, normal S1 and S2, no gallops, no murmurs, no rubs ABDOMEN: Soft, nontender. No hepatosplenomegaly, normal bowel sounds, no guarding or rigidity. EXTREMITIES: No clubbing, no edema, no cyanosis, 2+ pulses and upper and lower extremities. MUSCULOSKELETAL: Muscle strength and tone normal. SPINE: No scoliosis or deformity SKIN: No rashes CENTRAL NERVOUS SYSTEM: Alert and oriented -3. No focal deficits, tone is normal in all 4 extremities. PSYCHIATRIC: Alert and oriented -3. Appropriate affect. Intact judgment and insight. - Labs CBC & Chem 7: 09/21/20 07:47 09/21/20 07:47 Labs: Abnormal Lab Results - Last 24 Hours (Table) 09/20/20 09/20/20 09/20/20 Range/Units 10:17 10:17 10:51 RBC 3.97 L (4.30-5.90) m/uL Hgb 10.9 L (13.0-17.5) gm/dL Hct 31.8 L (39.0-53.0) % MCV (80.0-100.0) fL RDW 19.8 H (11.5-15.5) % BUN 30 H (9-20) mg/dL Creatinine 2.16 H (0.66-1.25) mg/dL Glucose 107 H (74-99) mg/dL Lactate Dehydrogenase 2885 H (313-618) U/L BNEIGNO Screen (NEGATIVE) CMV IgG Ab (Non-Reactive) EBV Capsid Ag IgG Intrp POSITIVE A (NEGATIVE) EBV Capsid Ag IgM Intrp POSITIVE A (NEGATIVE) EBV EA IgG Ab Interp POSITIVE A (NEGATIVE) EBV Nuc Ag IgG Interp POSITIVE A (NEGATIVE) 09/20/20 09/20/20 09/21/20 Range/Units 10:51 10:51 07:47 RBC (4.30-5.90) m/uL Hgb 12.1 L (13.0-17.5) gm/dL Hct 36.1 L (39.0-53.0) % MCV 79.7 L (80.0-100.0) fL RDW 19.9 H (11.5-15.5) % BUN (9-20) mg/dL Creatinine (0.66-1.25) mg/dL Glucose (74-99) mg/dL Lactate Dehydrogenase (313-618) U/L BENIGNO Screen POSITIVE A (NEGATIVE) CMV IgG Ab Reactive A (Non-Reactive) EBV Capsid Ag IgG Intrp (NEGATIVE) EBV Capsid Ag IgM Intrp (NEGATIVE) EBV EA IgG Ab Interp (NEGATIVE) EBV Nuc Ag IgG Interp (NEGATIVE) 09/21/20 Range/Units 07:47 RBC (4.30-5.90) m/uL Hgb (13.0-17.5) gm/dL Hct (39.0-53.0) % MCV (80.0-100.0) fL RDW (11.5-15.5) % BUN 34 H (9-20) mg/dL Creatinine 2.10 H (0.66-1.25) mg/dL Glucose (74-99) mg/dL Lactate Dehydrogenase (313-618) U/L BENIGNO Screen (NEGATIVE) CMV IgG Ab (Non-Reactive) EBV Capsid Ag IgG Intrp (NEGATIVE) EBV Capsid Ag IgM Intrp (NEGATIVE) EBV EA IgG Ab Interp (NEGATIVE) EBV Nuc Ag IgG Interp (NEGATIVE) Assessment and Plan Plan: Assessment: #1. Shortness of breath, of unknown etiology, patient thinks this may have been related to new medication Brilinta. Chest x-ray showed no acute cardiopulmonary process, VQ scan showed low to intermediate probability of PE, lower extremity Dopplers were negative for DVT #2. History of interstitial lung disease/pulmonary fibrosis #3. History of pulmonary embolism in 2011 #4. Obstructive sleep apnea intolerant to CPAP #5. History of prostate cancer with radiation treatments #6. Nephrolithiasis #7. Migraine headaches #8. Coronary artery disease with previous stent placement #9. Anxiety/depression #10. Hypertension #11. Hyperlipidemia #12. History of COPD with remote history of chronic tobacco dependence, in remission for last 20 years #13. Severe splenomegaly, hematology is following #14. Inguinal hernia Plan: Discontinue Symbicort, patient complains that it makes her more short of breath Not on any maintenance inhalers on a regular basis at home Continue DuoNeb From pulmonary perspective patient could be considered for discharge home when cleared by other consultants on the case He will need outpatient follow-up with Dr. Conrad in the office in 7-10 days I performed a history & physical examination of the patient and discussed their management with my nurse practitioner, Delaney Hamilton. I reviewed the nurse practitioner's note and agree with the documented findings and plan of care. Lung sounds are positive for diminished breath sounds The findings and the impression was discussed with the patient. I attest to the documentation by the nurse practitioner. Time with Patient: Less than 30
[2020-09-21 11:28] VITALS: BP 142/64
[2020-09-21 11:47] VITALS: PULSE 75
--- NOTE | 2020-09-21 12:34 | P.PN ---
Subjective Progress Note Date: 09/21/20 Principal diagnosis: Right groin pain Patient has no new complaints. Abdominal pain and groin pain have resolved. Ultrasound results noted. Area and gallbladder fossa may reflect residual cystic duct as was seen on the CAT scan from 2019. Patient would like to go home today. Objective - Vital Signs Vital signs: Vital Signs Temp 98 F 09/21/20 07:55 Pulse 75 09/21/20 11:55 Resp 18 09/21/20 11:27 BP 142/64 09/21/20 11:27 Pulse Ox 93 L 09/21/20 11:27 Intake & Output 09/20/20 09/21/20 09/21/20 18:59 06:59 18:59 Intake Total 660 Output Total 575 500 Balance 85 -500 Weight 88.3 kg Intake: Oral 660 Output: Urine 575 500 Other: Voiding Method Urinal # Voids 2 1 # Bowel Movements 1 - Exam Abdomen: Soft, nontender, nondistended - Labs CBC & Chem 7: 09/21/20 07:47 09/21/20 07:47 Labs: Abnormal Lab Results - Last 24 Hours (Table) 09/20/20 09/20/20 09/20/20 Range/Units 10:51 10:51 10:51 Hgb (13.0-17.5) gm/dL Hct (39.0-53.0) % MCV (80.0-100.0) fL RDW (11.5-15.5) % BUN (9-20) mg/dL Creatinine (0.66-1.25) mg/dL BENIGNO Screen POSITIVE A (NEGATIVE) Free [place] LC, Quant 6.50 H (0.33-1.94) mg/dL Free [place] LC, Quant 3.54 H (0.57-2.63) mg/dL CMV IgG Ab Reactive A (Non-Reactive) EBV Capsid Ag IgG Intrp POSITIVE A (NEGATIVE) EBV Capsid Ag IgM Intrp POSITIVE A (NEGATIVE) EBV EA IgG Ab Interp POSITIVE A (NEGATIVE) EBV Nuc Ag IgG Interp POSITIVE A (NEGATIVE) 09/21/20 09/21/20 Range/Units 07:47 07:47 Hgb 12.1 L (13.0-17.5) gm/dL Hct 36.1 L (39.0-53.0) % MCV 79.7 L (80.0-100.0) fL RDW 19.9 H (11.5-15.5) % BUN 34 H (9-20) mg/dL Creatinine 2.10 H (0.66-1.25) mg/dL BENIGNO Screen (NEGATIVE) Free [place] LC, Quant (0.33-1.94) mg/dL Free Lambda LC, Quant (0.57-2.63) mg/dL CMV IgG Ab (Non-Reactive) EBV Capsid Ag IgG Intrp (NEGATIVE) EBV Capsid Ag IgM Intrp (NEGATIVE) EBV EA IgG Ab Interp (NEGATIVE) EBV Nuc Ag IgG Interp (NEGATIVE) Assessment and Plan (1) Right groin pain Narrative/Plan: Patient doing well as it pertains to his right groin discomfort. Abnormalities seen on ultrasound likely represents residual cystic duct. We discussed options of repeating CAT scan the patient would like to be discharged. He is asymptomatic regarding his right upper quadrant region. Continue observation is not unreasonable. Will follow. Current Visit: Yes Status: Acute Priority: High Code(s): R10.31 - RIGHT LOWER QUADRANT PAIN SNOMED Code(s): 42035351051143306
--- NOTE | 2020-09-21 17:20 | P.PN ---
Subjective Progress Note Date: 09/21/20 Principal diagnosis: Splenomegaly In f/u today pt states feeling really good, he is breathing comfortably, no chest pain, palpitations, abd pain or bloating. Objective - Vital Signs Vital signs: Vital Signs Temp 98 F 09/21/20 07:55 Pulse 75 09/21/20 11:55 Resp 18 09/21/20 11:27 BP 142/64 09/21/20 11:27 Pulse Ox 93 L 09/21/20 11:27 Intake & Output 09/20/20 09/21/20 09/21/20 18:59 06:59 18:59 Intake Total 660 240 Output Total 575 500 Balance 85 -500 240 Weight 88.3 kg Intake: Oral 660 240 Output: Urine 575 500 Other: Voiding Method Urinal # Voids 2 1 # Bowel Movements 1 - Constitutional General appearance: Present: average body habitus, cooperative, no acute distress - EENT Eyes: Present: anicteric sclerae, EOMI ENT: Present: hearing grossly normal - Respiratory Respiratory: bilateral: CTA - Cardiovascular Heart sounds: normal: S1, S2 - Peripheral edema leg Peripheral Edema: bilateral: None - Gastrointestinal General gastrointestinal: Present: normal bowel sounds, soft, splenomegaly - Neurologic Neurologic: Present: CNII-XII intact - Musculoskeletal Musculoskeletal: Present: strength equal bilaterally - Psychiatric Psychiatric: Present: A&O x's 3, appropriate affect, intact judgment & insight - Labs CBC & Chem 7: 09/21/20 07:47 09/21/20 07:47 Labs: Abnormal Lab Results - Last 24 Hours (Table) 09/20/20 09/20/20 09/20/20 Range/Units 10:51 10:51 10:51 Hgb (13.0-17.5) gm/dL Hct (39.0-53.0) % MCV (80.0-100.0) fL RDW (11.5-15.5) % BUN (9-20) mg/dL Creatinine (0.66-1.25) mg/dL BENIGNO Screen POSITIVE A (NEGATIVE) Free [place] LC, Quant 6.50 H (0.33-1.94) mg/dL Free Lambda LC, Quant 3.54 H (0.57-2.63) mg/dL CMV IgG Ab Reactive A (Non-Reactive) EBV Capsid Ag IgG Intrp POSITIVE A (NEGATIVE) EBV Capsid Ag IgM Intrp POSITIVE A (NEGATIVE) EBV EA IgG Ab Interp POSITIVE A (NEGATIVE) EBV Nuc Ag IgG Interp POSITIVE A (NEGATIVE) 09/21/20 09/21/20 Range/Units 07:47 07:47 Hgb 12.1 L (13.0-17.5) gm/dL Hct 36.1 L (39.0-53.0) % MCV 79.7 L (80.0-100.0) fL RDW 19.9 H (11.5-15.5) % BUN 34 H (9-20) mg/dL Creatinine 2.10 H (0.66-1.25) mg/dL BENIGNO Screen (NEGATIVE) Free [place] LC, Quant (0.33-1.94) mg/dL Free Lambda LC, Quant (0.57-2.63) mg/dL CMV IgG Ab (Non-Reactive) EBV Capsid Ag IgG Intrp (NEGATIVE) EBV Capsid Ag IgM Intrp (NEGATIVE) EBV EA IgG Ab Interp (NEGATIVE) EBV Nuc Ag IgG Interp (NEGATIVE) - Imaging and Cardiology US - abdomen: report reviewed Assessment and Plan (1) Right groin pain Narrative/Plan: Surgery has seen pt, pain is resolved Status: Acute Priority: High Code(s): R10.31 - RIGHT LOWER QUADRANT PAIN SNOMED Code(s): 73772325310687614 (2) Splenomegaly Narrative/Plan: US showing heterogenous, coarse contour to liver possibly relating to some chronic liver disease which would account for splenomegaly. CBD dilated post choley, no mass reported. Splenomegaly is stable and will be monitored. Inflammatory labs are elevated. Pt admitted with reaction to medication so, co uld be associated. Status: Chronic Priority: Medium Code(s): R16.1 - SPLENOMEGALY, NOT ELSEWHERE CLASSIFIED SNOMED Code(s): 34958671 (3) MGUS (monoclonal gammopathy of unknown significance) Narrative/Plan: Monoclonal gammopathy labs stable when compared to previous Status: Chronic Priority: Medium Code(s): D47.2 - MONOCLONAL GAMMOPATHY SNOMED Code(s): 949277987 Plan: Pt has f/u appt with Dr. Henriquez in a few weeks. Splenomegaly and monoclonal paraproteinemia labs will cont to be monitored.
[2020-09-22 15:01] LABS: Albumin 3.84 g/dL (3.80-4.90); Gamma Globulin 0.89 g/dL (0.70-1.50)
--- NOTE | 2020-09-23 12:07 | P.DS ---
Providers Date of admission: 09/17/20 13:59 Expected date of discharge: 09/21/20 Attending physician: Barrington Goyal Consults: 09/17/20 13:27 Consult Physician Routine Consulting Provider: Shruthi Philip Consult Reason/Comments: abn.perfusion scan Do you want consulting provider notified?: Yes 09/18/20 12:55 Consult Physician Routine Consulting Provider: Cabrera Arceo Consult Reason/Comments: right groin pain possible recurrent hernia Do you want consulting provider notified?: Yes 09/19/20 16:53 Consult Physician Routine Consulting Provider: Zarina Posadas Consult Reason/Comments: splenomegaly Do you want consulting provider notified?: Already Contacted Primary care physician: [facility] Course: Final Diagnoses: 1) Acute dyspnea, etiology unclear, suspect induced by new medication Brilenta, converted to Effient per cardiology. Current Visit: Yes Status: Acute Code(s): R06.00 - DYSPNEA, UNSPECIFIED SNOMED Code(s): 494980928 (2) Elevated troponin Current Visit: Yes Status: Acute Code(s): R77.8 - OTHER SPECIFIED ABNORMALITIES OF PLASMA PROTEINS SNOMED Code(s): 617283185 (3) CKD (chronic kidney disease), stage III Current Visit: No Status: Acute Code(s): N18.30 - CHRONIC KIDNEY DISEASE, STAGE 3 UNSPECIFIED SNOMED Code(s): 300567459 (4) COPD (chronic obstructive pulmonary disease) Current Visit: No Status: Acute Code(s): J44.9 - CHRONIC OBSTRUCTIVE PULMONARY DISEASE, UNSPECIFIED SNOMED Code(s): 64651156 (5) Coronary artery disease Current Visit: No Status: Acute Code(s): I25.10 - ATHSCL HEART DISEASE OF [place] CORONARY ARTERY W/O ANG PCTRS SNOMED Code(s): 79347866 (6) Essential (primary) hypertension Current Visit: No Status: Acute Code(s): I10 - ESSENTIAL (PRIMARY) HYPERTENSION SNOMED Code(s): 02744350 (7) H/O heart artery stent Current Visit: No Status: Acute Code(s): Z95.5 - PRESENCE OF CORONARY ANGIOPLASTY IMPLANT AND GRAFT SNOMED Code(s): 738101269 (8) H/O prostate cancer Current Visit: No Status: Acute Code(s): Z85.46 - PERSONAL HISTORY OF MALIGNANT NEOPLASM OF PROSTATE SNOMED Code(s): 978690581 (9) Interstitial lung disease Current Visit: No Status: Acute Code(s): J84.9 - INTERSTITIAL PULMONARY DISEASE, UNSPECIFIED SNOMED Code(s): 863028821 (10) Unstable angina Current Visit: No Status: Acute Code(s): I20.0 - UNSTABLE ANGINA SNOMED Code(s): 7154697 (11) severe splenomegaly, liver ultrasound reported CBD dilated post choley, no mass reported, nonspecific pattern, echogenic and heterogenous, coarse, possible chronic liver disease ,positive CMV IgG AB, positive EBV, monoclonal gammopathy, further follow-up outpatient with hematology. (12) right groin pain, resolved. Ultrasound reported negative for pseudoaneurysm. Evaluated by surgery-possible residual cystic duct, declined inpatient repeat computed tomography scan. Hospital course:Mr. Teixeira is a 79-year-old male well-known to my practice with a long-standing history of coronary artery disease chronic obstructive pulmonary disease PE pulmonary fibrosis presents to the emergency room for dyspnea. Symptoms began yesterday. States they happened intermittently does not seem to be related to exertion on exertion by the breathing worse symptoms began almost or in accordance with stopping Plavix and switching to Brilinta. Patient denies orthopnea denies associated chest pain fever chills or cough. Patient's admitting to intermittent chronic dizziness lightheadedness although this is not new and is unchanged patient had initially stopped his anticoagulation Plavix because it was giving him an upset stomach was recently placed on Brilinta and feels this may have caused his symptoms as stated before patient was having significant epigastric abdominal discomfort with Plavix patient recently admitted for hip fracture April travel to [place] last weekend otherwise no new complaints 09/18/2020 patient was originally admitted with abdominal pain probably secondary to Plavix patient was changed to Effient, and January patient underwent angioplasty with stent placement had drug-eluting stents placed hence the reason for the anticoagulant therapy. While patient was in the hospital waiting to be discharged he developed moderate to severe right groin pain suspect recurrent inguinal hernia 09/19/2020 From a medical/cardiology point of view patient is cleared to be discharged however as stated in yesterday's note he developed moderate to severe right groin pain, surgical consult was obtained as patient's had hernia repair with recurrence and second repair at this site in the past. The surgeon of record Rodriguez Reece MD examined patient, patient was exquisitely tender to touch, decision was made to obtain CT of pelvis to aid in assessment before patient sent home 09/20/2020 continues to have right groin discomfort. CT of pelvis reported severe splenomegaly measuring at least 18 cm, no inguinal hernia, atrophic right kidney with bilateral nonobstructing punctate calculi. Denies chest pain, palpitations or increased shortness of breath. Continues on nebulized bronchodilators ,LABA, Maintaining O2 sats in the 90s on 2 L nasal cannula. Labs pending. Significant clinical improvement. Cleared by all consults for discharge. Patient will be discharged home in a stable condition with guarded prognosis. The impression and plan of care has been dictated as directed. : I performed a history and examination of this patient, discussed the same with the dictator. I agree with the dictator's note ,documented as a scribe. Any additional findings or plans will be noted. Patient Condition at Discharge: Stable Plan - Discharge Summary Discharge Rx Participant: No New Discharge Prescriptions: New Aspirin 81 mg PO DAILY chew Sucralfate [Carafate] 1 gm PO ACHS #120 tab Ipratropium-Albuterol Nebulize [Duoneb 0.5 mg-3 mg/3 ml Soln] 3 ml INHALATION RT-QID #120 ml Prasugrel [Effient] 10 mg PO DAILY #30 tab amLODIPine [Norvasc] 5 mg PO DAILY #30 tab Continue Pantoprazole Sodium [Protonix] 40 mg PO DAILY Cholecalciferol [Vitamin D3 (25 Mcg = 1000 Iu)] 1,000 unit PO HS Vit C/E/Zn/Coppr/Lutein/Zeaxan [Preservision Areds 2 Softgel] 1 cap PO BID calcium polycarbophiL [Fibercon] 625 mg PO HS carvediloL [Coreg*] 12.5 mg PO BID-W/MEALS tab Pravastatin Sodium [Pravachol] 40 mg PO HS tab LORazepam [Ativan] 0.5 mg PO TID Discontinued Ticagrelor [Brilinta] 60 mg PO BID amLODIPine [Norvasc] 2.5 mg PO DAILY Losartan [Cozaar] 25 mg PO DAILY Discharge Medication List Pantoprazole Sodium [Protonix] 40 mg PO DAILY 03/08/16 [History] Cholecalciferol [Vitamin D3 (25 Mcg = 1000 Iu)] 1,000 unit PO HS 12/12/18 [History] Vit C/E/Zn/Coppr/Lutein/Zeaxan [Preservision Areds 2 Softgel] 1 cap PO BID 12/12/18 [History] calcium polycarbophiL [Fibercon] 625 mg PO HS 12/12/18 [History] Pravastatin Sodium [Pravachol] 40 mg PO HS tab 04/21/20 [Rx] carvediloL [Coreg*] 12.5 mg PO BID-W/MEALS tab 04/21/20 [Rx] LORazepam [Ativan] 0.5 mg PO TID 09/16/20 [History] Aspirin 81 mg PO DAILY chew 09/21/20 [Rx] Ipratropium-Albuterol Nebulize [Duoneb 0.5 mg-3 mg/3 ml Soln] 3 ml INHALATION RT-QID #120 ml 09/21/20 [Rx] Prasugrel [Effient] 10 mg PO DAILY #30 tab 09/21/20 [Rx] Sucralfate [Carafate] 1 gm PO ACHS #120 tab 09/21/20 [Rx] amLODIPine [Norvasc] 5 mg PO DAILY #30 tab 09/21/20 [Rx] Follow up Appointment(s)/Referral(s): Alexandre Apple MD [STAFF PHYSICIAN] - 10/08/20 10:15 am Vega Henriquez MD [STAFF PHYSICIAN] - 1 Week (office is closed, please call to make follow up appointment) Barrington Goyal Jr, [Primary Care Provider] - 3 Days (please call office to make f/u appt, they are closed for lunch) Anselmo Conrad MD [STAFF PHYSICIAN] - 10/13/20 11:15 am Patient Instructions/Handouts: Coronary Artery Disease (DC), Dyspnea (DC) Activity/Diet/Wound Care/Special Instructions: Case management to arrange for nebulizer. O2 sat on room air after ambulation 93%. Discharge Disposition: HOME SELF-CARE
[2020-09-29 11:12] LABS: ANA Pattern Homogeneous
== END 2020-09-21 13:25 | disposition home or self-care (01) | DRG 204 ==
LOC: EC 15:27 → 3SCARD 20:27 → OBSVTOIN 09-17 13:59
PROVIDERS: ADMIT Family Medicine; ATTEND Family Medicine
DX: R06.00 Dyspnea, unspecified (principal); N17.9 Acute kidney failure, unspecified; T45.525A Adverse effect of antithrombotic drugs, initial encounter; G47.33 Obstructive sleep apnea (adult) (pediatric); J84.10 Pulmonary fibrosis, unspecified; R77.8 Other specified abnormalities of plasma proteins; N18.30 Chronic kidney disease, stage 3 unspecified; J44.9 Chronic obstructive pulmonary disease, unspecified; Z80.8 Family history of malignant neoplasm of other organs or systems; Z95.5 Presence of coronary angioplasty implant and graft; Z86.711 Personal history of pulmonary embolism; Z79.02 Long term (current) use of antithrombotics/antiplatelets; Z92.3 Personal history of irradiation; Z85.828 Personal history of other malignant neoplasm of skin; Z80.1 Family history of malignant neoplasm of trachea, bronchus and lung; I25.2 Old myocardial infarction; Z87.891 Personal history of nicotine dependence; Z20.822 Contact with and (suspected) exposure to COVID-19; I25.10 Atherosclerotic heart disease of native coronary artery without angina pectoris; Z85.46 Personal history of malignant neoplasm of prostate; R16.1 Splenomegaly, not elsewhere classified; E78.5 Hyperlipidemia, unspecified; I12.9 Hypertensive chronic kidney disease with stage 1 through stage 4 chronic kidney disease, or unspecified chronic kidney disease; H91.90 Unspecified hearing loss, unspecified ear; Z87.442 Personal history of urinary calculi; D47.2 Monoclonal gammopathy; R10.31 Right lower quadrant pain; N20.0 Calculus of kidney; Z79.899 Other long term (current) drug therapy; R76.8 Other specified abnormal immunological findings in serum; G43.909 Migraine, unspecified, not intractable, without status migrainosus; F32.9 Major depressive disorder, single episode, unspecified; E78.00 Pure hypercholesterolemia, unspecified; F41.9 Anxiety disorder, unspecified
CPT/HCPCS: 36415; 71046; 72192; 76705; 78580; 80048; 80053; 81003; 83615; 83690; 83880; 83883; 84165; 84484; 85025; 85379; 85610; 85652; 85730; 86038; 86039; 86431; 86644; 86645; 86663; 86664; 86665; 87635; 93005; 93306; 93970; 93975; 94640; 94760; 99285

== ENCOUNTER → 2020-10-26 | Outpatient (CLI) | payer MEDICARE ==
--- NOTE | 2020-10-26 09:53 | US ---
EXAMINATION TYPE: US abdomen complete DATE OF EXAM: 10/26/2020 COMPARISON: US 09/20/20, CT pelvis 09/19/2020 CLINICAL HISTORY: R16.1 Splenomegaly. Hx prostate CA EXAM MEASUREMENTS: Liver Length: 15.7 cm Gallbladder Wall: Surgically absent cm CBD: 0.8 cm Spleen: 16.9 cm Right Kidney: 9.3 x 4.0 x 3.4 cm Left Kidney: 12.3 x 4.2 x 4.0 cm Pancreas: Partially Obscured by bowel gas, duct = 0.2 cm Liver: course texture Gallbladder: Surgically absent, anechoic area seen in GB fossa Evidence for sonographic Lake's sign: No CBD: wnl Spleen: enlarged. Seen on CT scan Right Kidney: No hydronephrosis or masses seen, small in size, small renal cortex Left Kidney: No hydronephrosis or masses seen, small renal cortex Upper IVC: wnl Abd Aorta: distal AAA = 5.6 x 3.1 x 2.6 cm, seen on previous CT measuring up to 4.1 cm The liver is heterogeneous. There is no evidence of cholelithiasis. Common bile duct is unremarkabl e. The visualized portions of the pancreas are homogenous. Kidneys are symmetric and free of hydron ephrosis. No renal lesions are seen. IMPRESSION: 1. Abdominal aortic aneurysm is measured today at 5.6 cm, previously measured 4.[address] September 19, 2020. This may be technical but clinical correlation with possible additional imaging is recomme nded. 2. Splenomegaly. 3. Bilateral small kidneys with renal cortical thickening is most consistent with chronic medical [place] disease. 4. Heterogeneous liver is nonspecific. Findings indicated to the ordering physician at 9:50 AM on 10/26/2020 via telephone.
== END | disposition home or self-care (01) ==
LOC: RADUSWWP 06:54
PROVIDERS: ATTEND Internal Medicine Hematology & Oncology
DX: R16.1 Splenomegaly, not elsewhere classified (principal); I71.4 Abdominal aortic aneurysm, without rupture; N27.9 Small kidney, unspecified
CPT/HCPCS: 76700

== ENCOUNTER → 2020-11-08 | Outpatient (CLI) | payer MEDICARE ==
[2020-11-08 08:33] LABS: Appearance,Urine Clear (Clear); Bilirubin,Urine Negative (Negative); Blood,Urine Trace (Negative); Color,Urine Yellow; Glucose,Urine (UA) Negative (Negative); Ketones,Urine Negative (Negative); Leukocyte Esterase,Urine Negative (Negative); Mucus,Urine Rare /hpf; Nitrite,Urine Negative (Negative); PH, Urine 5.5 (5.0-8.0); Protein,Urine 1+ (Negative); RBC,Urine 1 /hpf (0-5); Specific Gravity,Urine 1.015 (1.001-1.035); Squamous Epithelial Cell,Urine <1 /hpf (0-4); Urobilinogen,Urine <2.0 mg/dL (<2.0); WBC,Urine 2 /hpf (0-5)
[2020-11-08 11:52] LABS: Urine Creatinine 89.5 mg/dL
[2020-11-08 11:59] LABS: % Iron Saturation 23.14 (15.00-50.00); African American GFR (CKD) 33.7 (60.0-200.0); Albumin/Globulin Ratio 1.67 (1.60-3.17); Anion Gap 6.6 mmol/L (4.00-12.00); BUN/Creat Ratio 17.62 Ratio (12.00-20.00); Calcium 8.9 mg/dL (8.7-10.3); Carbon Dioxide 25.4 mmol/L (21.6-31.8); Globulin 2.4 g/dL (1.6-3.3); Magnesium 1.9 mg/dL (1.5-2.4); Non-African American GFR(CKD) 29.1 (60.0-200.0); Phosphorus 3.9 mg/dL (2.4-5.1); Potassium 4.3 mmol/L (3.5-5.5); Total Bilirubin 1.9 mg/dL (0.3-1.2); Total Protein 6.4 g/dL (6.2-8.2); Uric Acid 8.5 mg/dL (3.7-8.7)
[2020-11-08 12:02] LABS: Ferritin 151.3 ng/mL (22.0-322.0)
[2020-11-08 12:14] LABS: HCT 34.3 % (39.6-50.0); HGB 10.9 g/dL (13.0-17.0); MCH 26.7 pg (27.0-32.0); MCHC 31.8 g/dL (32.0-37.0); MCV 83.9 fL (80.0-97.0); Platelet Count 242 X 10*3/uL (140-440); RBC 4.09 X 10*6/uL (4.40-5.60); RDW 20.3 % (11.5-14.5); WBC 9.14 X 10*3/uL (4.50-10.00)
== END | disposition home or self-care (01) ==
LOC: LABWHC1 08:00
PROVIDERS: ATTEND Internal Medicine
DX: N18.32 Chronic kidney disease, stage 3b (principal); N39.0 Urinary tract infection, site not specified; N25.81 Secondary hyperparathyroidism of renal origin; E55.9 Vitamin D deficiency, unspecified; D64.9 Anemia, unspecified; M10.9 Gout, unspecified; R80.9 Proteinuria, unspecified
CPT/HCPCS: 36415; 80053; 81001; 82043; 82306; 82570; 82728; 83540; 83550; 83735; 83970; 84100; 84550; 85027

== ENCOUNTER 2021-07-16 11:07 | Observation (INO) | payer MEDICARE ==
[2021-07-16] MEDS ORDERED: LORazepam 2 MG/ML INJ IV STA (11:25)
[2021-07-16 11:37] LABS: Anisocytosis Moderate; Basophils % (A) 1 %; Eosinophils # (A) 0.1 k/uL (0-0.7); Eosinophils % (A) 1 %; HCT 25.1 % (39.0-53.0); HGB 8.5 gm/dL (13.0-17.5); Hypochromasia Slight; Lymphocytes # (A) 0.9 k/uL (1.0-4.8); Lymphocytes % (A) 15 %; MCHC 33.8 g/dL (31.0-37.0); MCV 88.7 fL (80.0-100.0); Mean Platelet Volume 10.6; Monocytes # (A) 0.3 k/uL (0-1.0); Monocytes % (A) 5 %; Neutrophils # (A) 4.4 k/uL (1.3-7.7); Neutrophils % (A) 74 %; Platelet Count 198 k/uL (150-450); Poikilocytosis Moderate; RBC 2.83 m/uL (4.30-5.90); RDW 21.5 % (11.5-15.5)
--- NOTE | 2021-07-16 11:41 | ED ---
General Adult HPI - General Chief complaint: Chest Pain Stated complaint: Chest Pain/SOB Time Seen by Provider: 07/16/21 11:10 Source: patient, family, RN notes reviewed, old records reviewed Mode of arrival: wheelchair Limitations: no limitations - History of Present Illness Initial comments: This is an 81-year-old male who presents emergency Department stating he's had intermittent chest pain all week and this morning he woke up with chest pain again is significantly short of breath secondary came to the emergency department. Patient has a history of bone cancer and history of anemia according to the daughter. Daughter also states she's very anxious and very fearful of dying as he just lost his one month ago. Patient denies any fever or chills. Patient denies any abdominal pain patient denies nausea vomiting. Patient denies any recent injury or trauma. Patient denies any lightheadedness or dizziness. Patient denies headache patient denies numbness weakness. - Related Data Home Medications Medication Instructions Recorded Confirmed Pantoprazole Sodium [Protonix] 40 mg PO DAILY 03/08/16 09/16/20 Cholecalciferol [Vitamin D3 (25 1,000 unit PO HS 12/12/18 09/16/20 Mcg = 1000 Iu)] Vit C/E/Zn/Coppr/Lutein/Zeaxan 1 cap PO BID 12/12/18 09/16/20 [Preservision Areds 2 Softgel] calcium polycarbophiL [Fibercon] 625 mg PO HS 12/12/18 09/16/20 LORazepam [Ativan] 0.5 mg PO TID 09/16/20 09/16/20 Previous Rx's Medication Instructions Recorded Pravastatin Sodium [Pravachol] 40 mg PO HS tab 04/21/20 carvediloL [Coreg*] 12.5 mg PO BID-W/MEALS tab 04/21/20 Aspirin 81 mg PO DAILY chew 09/21/20 Ipratropium-Albuterol Nebulize 3 ml INHALATION RT-QID #120 ml 09/21/20 [Duoneb 0.5 mg-3 mg/3 ml Soln] Prasugrel [Effient] 10 mg PO DAILY #30 tab 09/21/20 Sucralfate [Carafate] 1 gm PO ACHS #120 tab 09/21/20 amLODIPine [Norvasc] 5 mg PO DAILY #30 tab 09/21/20 Allergies Allergy/AdvReac Type Severity Reaction Status Date / Time alprazolam [From Xanax] AdvReac Unknown Verified 07/16/21 11:12 Review of Systems ROS Statement: Those systems with pertinent positive or pertinent negative responses have been documented in the HPI. ROS Other: All systems not noted in ROS Statement are negative. Past Medical History Past Medical History: Cancer, Chest Pain / Angina, COPD, GERD/Reflux, Hearing Di sorder / Deafness, Hyperlipidemia, Hypertension, Myocardial Infarction ([place]), Osteoarthritis (OA), Prostate Disorder, Pulmonary Embolus (PE) Additional Past Medical History / Comment(s): Interstitial lung disease, pulmonary fibrosis, PE in 2011-pt cannot recall laterality, past home O2 use but none now, [place]IA[place]-cannot tolerate Cpap, prostate cancer with radiation treatment, skin cancer with removals, nephrolithiasis, migraines, compression fracture low back, bilateral elbow fractures with surgery, PUD, jaundiced as a child, [place] bilaterally. "mild" [place] in january 2020. Last Myocardial Infarction Date:: January 2020 History of Any Multi-Drug Resistant Organisms: None Reported Past Surgical History: Appendectomy, Cholecystectomy, Heart Catheterization, Heart Catheterization With Stent, Hernia Repair, Joint Replacement, Orthopedic Surgery Additional Past Surgical History / Comment(s): Prostate biopsy, L hand partial amp of 2 fingers, L knee ACL repair, R knee arthroscopy, bilateral total elbow replacements per pt, bilateral cataract removals, L inguinal hernia repair, cardiac caths x 2, EGD, colonoscopy, skin cancer removals. Past Anesthesia/Blood Transfusion Reactions: No Reported Reaction Date of Last Stent Placement:: January 2020. Past Psychological History: Anxiety, Depression Smoking Status: Former smoker Past Alcohol Use History: None Reported Past Drug Use History: None Reported - Past Family History Brother(s) Family Medical History: Cancer Additional Family Medical History / Comment(s): ONE BROTHER HAD LUNG CA & ANOTHE R HAD MELANOMA. Brother just recently last week. Mother Family Medical History: AICD/Pacemaker Father Family Medical History: No Reported History Sister(s) Family Medical History: No Reported History General Exam - General Exam Comments Initial Comments: GENERAL: Patient is well-developed and well-nourished. Patient is nontoxic and well- hydrated and is in mild distress. ENT: Neck is soft and supple. No significant lymphadenopathy is noted. Oropharynx is clear. Moist mucous membranes. Neck has full range of motion without e liciting any pain. EYES: The sclera were anicteric and conjunctiva were pink and moist. Extraocular movements were intact and pupils were equal round and reactive to light. Eyelids were unremarkable. PULMONARY: Unlabored respirations. Good breath sounds bilaterally. No audible rales rhonchi or wheezing was noted. CARDIOVASCULAR: Patient is a regular rate and rhythm no murmurs are heard ABDOMEN: Soft and nontender with normal bowel sounds. SKIN: Skin is clear with no lesions or rashes and otherwise unremarkable. NEUROLOGIC: Patient is alert and oriented x3. Cranial nerves II through XII are grossly intact. Motor and sensory are also intact. Normal speech, volume and content. Symmetrical smile. MUSCULOSKELETAL: Normal extremities with adequate strength and full range of motion. LYMPHATICS: No significant lymphadenopathy is noted PSYCHIATRIC: Patient is mildly anxious Limitations: no limitations Course Vital Signs 07/16/21 07/16/21 11:08 11:35 Temperature 97.0 F L Pulse Rate 79 Pulse Rate [ 72 Director Strategy ] Respiratory 18 24 Rate Blood Pressure 145/66 O2 Sat by Pulse 99 Oximetry Medical Decision Making - Medical Decision Making EKG shows sinus rhythm at 70 bpm MI interval 155 QRS is 88 QT interval 350 QTC is 392. Patient's EKG shows no ST segment elevation or depression. Chest x-ray shows no acute abnormality. I spoke with Dr. Goyal he agreed to admit the patient and the patient wrote admitting orders. I consulted cardiology - Lab Data Result diagrams: 07/16/21 11:32 07/16/21 11:32 Lab Results 07/16/21 07/16/21 07/16/21 Range/Units 11:32 11:32 11:32 WBC 6.0 (3.8-10.6) k/uL RBC 2.83 L (4.30-5.90) m/uL Hgb 8.5 L (13.0-17.5) gm/dL Hct 25.1 L (39.0-53.0) % MCV 88.7 (80.0-100.0) fL MCH 30.0 (25.0-35.0) pg MCHC 33.8 (31.0-37.0) g/dL RDW 21.5 H (11.5-15.5) % Plt Count 198 (150-450) k/uL MPV 10.6 Neutrophils % 74 % Lymphocytes % 15 % Monocytes % 5 % Eosinophils % 1 % Basophils % 1 % Neutrophils # 4.4 (1.3-7.7) k/uL Lymphocytes # 0.9 L (1.0-4.8) k/uL Monocytes # 0.3 (0-1.0) k/uL Eosinophils # 0.1 (0-0.7) k/uL Basophils # 0.0 (0-0.2) k/uL Hypochromasia Slight Poikilocytosis Moderate Anisocytosis Moderate PT 11.2 (9.0-12.0) sec INR 1.0 (<1.2) APTT 23.0 (22.0-30.0) sec D-Dimer 0.70 H (<0.60) mg/L FEU Sodium 139 (137-145) mmol/L Potassium 4.2 (3.5-5.1) mmol/L Chloride 106 (98-107) mmol/L Carbon Dioxide 22 (22-30) mmol/L Anion Gap 11 mmol/L BUN 33 H (9-20) mg/dL Creatinine 2.01 H (0.66-1.25) mg/dL Est GFR (CKD-EPI)AfAm 35 (>60 ml/min/1.73 sqM) Est GFR (CKD-EPI)NonAf 30 (>60 ml/min/1.73 sqM) Glucose 180 H (74-99) mg/dL Plasma Lactic Acid Mateo (0.7-2.0) mmol/L Calcium 9.1 (8.4-10.2) mg/dL Magnesium 1.9 (1.6-2.3) mg/dL Total Bilirubin 2.2 H (0.2-1.3) mg/dL AST 28 (17-59) U/L ALT 27 (4-49) U/L Alkaline Phosphatase 132 H (38-126) U/L Troponin I (0.000-0.034) ng/mL NT-Pro-B Natriuret Pep pg/mL Total Protein 7.2 (6.3-8.2) g/dL Albumin 4.3 (3.5-5.0) g/dL Blood Type Blood Type Confirm Blood Type Recheck Bld Type Recheck Status Antibody Screen Spec Expiration Date 07/16/21 07/16/21 07/16/21 Range/Units 11:32 11:32 11:32 WBC (3.8-10.6) k/uL RBC (4.30-5.90) m/uL Hgb (13.0-17.5) gm/dL Hct (39.0-53.0) % MCV (80.0-100.0) fL MCH (25.0-35.0) pg MCHC (31.0-37.0) g/dL RDW (11.5-15.5) % Plt Count (150-450) k/uL MPV Neutrophils % % Lymphocytes % % Monocytes % % Eosinophils % % Basophils % % Neutrophils # (1.3-7.7) k/uL Lymphocytes # (1.0-4.8) k/uL Monocytes # (0-1.0) k/uL Eosinophils # (0-0.7) k/uL Basophils # (0-0.2) k/uL Hypochromasia Poikilocytosis Anisocytosis PT (9.0-12.0) sec INR (<1.2) APTT (22.0-30.0) sec D-Dimer (<0.60) mg/L FEU Sodium (137-145) mmol/L Potassium (3.5-5.1) mmol/L Chloride (98-107) mmol/L Carbon Dioxide (22-30) mmol/L Anion Gap mmol/L BUN (9-20) mg/dL Creatinine (0.66-1.25) mg/dL Est GFR (CKD-EPI)AfAm (>60 ml/min/1.73 sqM) Est GFR (CKD-EPI)NonAf (>60 ml/min/1.73 sqM) Glucose (74-99) mg/dL Plasma Lactic Acid Mateo 1.4 (0.7-2.0) mmol/L Calcium (8.4-10.2) mg/dL Magnesium (1.6-2.3) mg/dL Total Bilirubin (0.2-1.3) mg/dL AST (17-59) U/L ALT (4-49) U/L Alkaline Phosphatase (38-126) U/L Troponin I <0.012 (0.000-0.034) ng/mL NT-Pro-B Natriuret Pep 1850 pg/mL Total Protein (6.3-8.2) g/dL Albumin (3.5-5.0) g/dL Blood Type Blood Type Confirm Blood Type Recheck Bld Type Recheck Status Antibody Screen Spec Expiration Date 07/16/21 07/16/21 Range/Units 11:32 11:38 WBC (3.8-10.6) k/uL RBC (4.30-5.90) m/uL Hgb (13.0-17.5) gm/dL Hct (39.0-53.0) % MCV (80.0-100.0) fL MCH (25.0-35.0) pg MCHC (31.0-37.0) g/dL RDW (11.5-15.5) % Plt Count (150-450) k/uL MPV Neutrophils % % Lymphocytes % % Monocytes % % Eosinophils % % Basophils % % Neutrophils # (1.3-7.7) k/uL Lymphocytes # (1.0-4.8) k/uL Monocytes # (0-1.0) k/uL Eosinophils # (0-0.7) k/uL Basophils # (0-0.2) k/uL Hypochromasia Poikilocytosis Anisocytosis PT (9.0-12.0) sec INR (<1.2) APTT (22.0-30.0) sec D-Dimer (<0.60) mg/L FEU Sodium (137-145) mmol/L Potassium (3.5-5.1) mmol/L Chloride (98-107) mmol/L Carbon Dioxide (22-30) mmol/L Anion Gap mmol/L BUN (9-20) mg/dL Creatinine (0.66-1.25) mg/dL Est GFR (CKD-EPI)AfAm (>60 ml/min/1.73 sqM) Est GFR (CKD-EPI)NonAf (>60 ml/min/1.73 sqM) Glucose (74-99) mg/dL Plasma Lactic Acid Mate[place] (0.7-2.0) mmol/L Calcium (8.4-10.2) mg/dL Magnesium (1.6-2.3) mg/dL Total Bilirubin (0.2-1.3) mg/dL AST (17-59) U/L ALT (4-49) U/L Alkaline Phosphatase (38-126) U/L Troponin I (0.000-0.034) ng/mL NT-Pro-B Natriuret Pep pg/mL Total Protein (6.3-8.2) g/dL Albumin (3.5-5.0) g/dL Blood Type O Negative Blood Type Confirm O Negative Blood Type Recheck No Previous Record Bld Type Recheck Status CABO Indicated Antibody Screen NEGATIVE Spec Expiration Date 07/19/20212331 Disposition Clinical Impression: Chest pain, Dyspnea, Anxiety Disposition: ADMITTED IP TO THIS HOSP Referrals: Barrington Goyal Jr, [Primary Care Provider] - 1-2 days Time of Disposition: 12:34
[2021-07-16 11:50] LABS: Albumin 4.3 g/dL (3.5-5.0); Calcium 9.1 mg/dL (8.4-10.2); Magnesium 1.9 mg/dL (1.6-2.3); Potassium 4.2 mmol/L (3.5-5.1); Total Bilirubin 2.2 mg/dL (0.2-1.3); Total Protein 7.2 g/dL (6.3-8.2)
--- NOTE | 2021-07-16 11:52 | XR ---
EXAMINATION TYPE: XR chest 2V DATE OF EXAM: 07/16/2021 COMPARISON: Chest x-ray September 16, 2020 HISTORY: Chest pain. TECHNIQUE: Frontal and lateral views of the chest are obtained. FINDINGS: There is mild chronic parenchymal changes without suspicious focal air space opacity, pleu ral effusion, or pneumothorax seen. The cardiac silhouette size remains within normal limits with at herosclerotic change in thoracic aorta. The osseous structures remain demineralized. IMPRESSION: Chronic changes without acute pulmonary process. No significant change from prior.
[2021-07-16 12:02] LABS: Prothrombin Time 11.2 sec (9.0-12.0)
[2021-07-16] MEDS ORDERED: ASPIRIN 81 MG PO STA (12:34)
[2021-07-16] MEDS ORDERED: NITROGLYCERIN OINT 1 INCH/GM PACKET TOPICAL STA (12:35)
[2021-07-16] MEDS ORDERED: NITROGLYCERIN SL TABS 0.4 MG TAB SUBLINGUAL PRN (12:48)
[2021-07-16] MEDS ORDERED: LIDOCAINE VISCOUS 2% 15 ML CUP MUCOUS MEM PRN (14:56)
[2021-07-16] MEDS ORDERED: HEPARIN SOD,PORK IN 0.45% NACL 25,000 UNIT in 0.45% NACL 1 250ML.BAG IV SCH (15:15)
[2021-07-16] MEDS: METHYL SALICYLATE/MENTHOL CREAM 5 OZ TOPICAL SCH ×2 (16:28→20:08)
--- NOTE | 2021-07-16 17:01 | P.CNPUL ---
History of Present Illness Consult date: 07/16/21 Requesting physician: Barrington Goyal Jr Reason for consult: dyspnea, chest pain Chief complaint: Left-sided chest pain, shortness of breath History of present illness: This a very pleasant 81-year-old male patient with known history of hypertension, gastroesophageal reflux disease, anxiety, obstructive sleep apnea intolerant to CPAP, prostate cancer with previous radiation treatments, nephroli thiasis, migraines, coronary disease with previous stent placement, chronic anemia. He also has a history of interstitial lung disease/pulmonary fibrosis and pulmonary embolism back in 2011. He follows with Dr. Conrad in our office. He does not have home oxygen. He has nebulizer with treatments that he rarely uses. No maintenance inhalers. He presented to the emergency room earlier this morning with left-sided chest pain and shortness of breath. She states that showed chronic changes but no acute pulmonary process. EKG reveals normal sinus rhythm with nonspecific ST and T wave abnormalities. White count 6.0. Hemoglobin 8.5. D-dimer 0.70. Sodium 139. Potassium 4.2. BUN 33. Cr eatinine 2.01. Glucose 180. Troponins negative 2. ProBNP 1850. He is seen today in consultation on the regular medical floor. He is currently resting comfortably in bed. Awake and alert in no acute distress. No chest pain currently. No worsening shortness of breath cough or congestion. No hemoptysis. He is to be initiated on a heparin drip based on his elevated d- dimer. CT angiogram unable to be performed due to acute renal failure. The plan is for VQ scan tomorrow. Review of Systems REVIEW OF SYSTEMS: CONSTITUTIONAL: Denies any recent significant weight loss or weight gain. EYES: Denies change in vision. EARS, NOSE, MOUTH, THROAT: Denies headaches, denies sore throat. CARDIOVASCULAR: Positive for chest pain, no palpitations or syncopal episodes. RESPIRATORY: Positive for shortness of breath, no cough, congestion or hemoptysis. GASTROINTESTINAL: Denies change in appetite, denies abdominal pain GENITOURINARY: Denies hematuria, denies infections. MUSKULOSKELETAL: Denies pain, denies swelling. INTEGUMENTARY: Denies rash, denies eczema. NEUROLOGICAL: Denies recent memory loss, no recent seizure activity. PSYCHIATRIC: Denies anxiety, denies depression. HEMATOLOGIC/LYMPHATIC: Denies anemia, denies enlarged lymph nodes. Past Medical History Past Medical History: Cancer, Chest Pain / Angina, COPD, GERD/Reflux, Hearing Disorder / Deafness, Hyperlipidemia, Hypertension, Myocardial Infarction ([place]), Osteoarthritis (OA), Prostate Disorder, Pulmonary Embolus (PE) Additional Past Medical History / Comment(s): Interstitial lung disease, pulmonary fibrosis, PE in 2011-pt cannot recall laterality, past home O2 use but none now, RIANA-cannot tolerate Cpap, prostate cancer with radiation treatment, skin cancer with removals, nephrolithiasis, migraines, compression fracture low back, bilateral elbow fractures with surgery, PUD, jaundiced as a child, [place] bilaterally. "mild" [place] in january 2020. Last Myocardial Infarction Date:: January 2020 History of Any Multi-Drug Resistant Organisms: None Reported Past Surgical History: Appendectomy, Cholecystectomy, Heart Catheterization, Heart Catheterization With Stent, Hernia Repair, Joint Replacement, Orthopedic Surgery Additional Past Surgical History / Comment(s): Prostate biopsy, L hand partial amp of 2 fingers, L knee ACL repair, R knee arthroscopy, bilateral total elbow replacements per pt, bilateral cataract removals, L inguinal hernia repair, cardiac caths x 2, EGD, colonoscopy, skin cancer removals. Past Anesthesia/Blood Transfusion Reactions: No Reported Reaction Date of Last Stent Placement:: January 2020. Past Psychological History: Anxiety, Depression Additional Psychological History / Comment(s): pt lost two months ago Smoking Status: Former smoker Past Alcohol Use History: None Reported Additional Past Alcohol Use History / Comment(s): Pt started smoking in 1961 and quit in 2004. Past Drug Use History: None Reported - Past Family History Brother(s) Family Medical History: Cancer Additional Family Medical History / Comment(s): ONE BROTHER HAD LUNG CA & ANOTHER HAD MELANOMA. Brother just recently last week. Mother Family Medical History: AICD/Pacemaker Father Family Medical History: No Reported History Sister(s) Family Medical History: No Reported History Medications and Allergies Home Medications Medication Instructions Recorded Confirmed Type Pantoprazole Sodium [Protonix] 40 mg PO DAILY 03/08/16 07/16/21 History Cholecalciferol [Vitamin D3 (25 25 mcg PO HS 12/12/18 07/16/21 History Mcg = 1000 Iu)] Vit C/E/Zn/Coppr/Lutein/Zeaxan 1 cap PO BID 12/12/18 07/16/21 History [Preservision Areds 2 Softgel] calcium polycarbophiL [Fibercon] 625 mg PO HS 12/12/18 07/16/21 History LORazepam [Ativan] 0.5 mg PO BID 09/16/20 07/16/21 History Fedratinib Dihydrochloride 400 mg PO HS 07/16/21 07/16/21 History [Inrebic] Sucralfate [Carafate] 1 gm PO AC-TID 07/16/21 07/16/21 History Vitamin B Complex 1 cap PO HS 07/16/21 07/16/21 History amLODIPine [Norvasc] 5 mg PO DAILY 07/16/21 07/16/21 History carvediloL [Coreg*] 12.5 mg PO BID 07/16/21 07/16/21 History lidocaine HCL [lidocaine HCL 5 ml MUCOUS MEM QID PRN 07/16/21 07/16/21 History Viscous] Allergies Allergy/AdvReac Type Severity Reaction Status Date / Time alprazolam [From Xanax] AdvReac Confusion Verified 07/16/21 13:26 Physical Exam Vitals: Vital Signs Temp Pulse Pulse Resp BP BP Pulse Ox 07/16/21 14:57 97.9 F 75 18 143/67 99 07/16/21 12:53 72 18 151/69 99 07/16/21 11:35 72 24 07/16/21 11:08 97.0 F L 79 18 145/66 99 Intake and Output 07/16/21 07/16/21 07/16/21 06:59 14:59 22:59 Other: Voiding Method Toilet # Voids 1 Weight 79.832 kg GENERAL EXAM: Alert, pleasant 81-year-old male patient, on 2 L nasal cannula, comfortable in no apparent distress. HEAD: Normocephalic. EYES: Normal reaction of pupils, equal size. NOSE: Clear with pink turbinates. THROAT: No erythema or exudates. NECK: No masses, no JVD. CHEST: No chest wall deformity. LUNGS: Equal air entry with no crackles, wheeze, rhonchi or dullness. CVS: S1 and S2 normal with no audible murmur, regular rhythm. ABDOMEN: No hepatosplenomegaly, normal bowel sounds, no guarding or rigidity. SPINE: No scoliosis or deformity SKIN: No rashes CENTRAL NERVOUS SYSTEM: No focal deficits, tone is normal in all 4 extremities. EXTREMITIES: There is no peripheral edema. No clubbing, no cyanosis. Peripheral pulses are intact. Results - Laboratory Findings CBC and BMP: 07/16/21 11:32 07/16/21 11:32 PT/INR, D-dimer PT 11.2 sec (9.0-12.0) 07/16/21 11:32 INR 1.0 (<1.2) 07/16/21 11:32 D-Dimer 0.70 mg/L FEU (<0.60) H 07/16/21 11:32 Abnormal lab findings: Abnormal Labs 07/16/21 07/16/21 07/16/21 11:32 11:32 11:32 RBC 2.83 L Hgb 8.5 L Hct 25.1 L RDW 21.5 H Lymphocytes # 0.9 L D-Dimer 0.70 H BUN 33 H Creatinine 2.01 H Glucose 180 H Total Bilirubin 2.2 H Alkaline Phosphatase 132 H - Diagnostic Findings Chest x-ray: image reviewed Assessment and Plan Assessment: 1 Left-sided chest discomfort of unclear etiology, troponins negative 2. EKG doesn't reveal any significant ST or T wave abnormalities. 2 Shortness of breath with elevated d-dimer. Plan is for perfusion lung scan tomorrow 3 Acute renal failure with creatinine 2.01 4 History of chronic anemia, current hemoglobin 8.5 5 History of interstitial lung disease 6 History of obstructive sleep apnea intolerant to CPAP. 6 History of chronic renal failure 7 Hyperlipidemia 8 History of pulmonary embolism 9 Hearing disorder 10 Prostate cancer with previous radiation 11 History of nephrolithiasis 12 Hypertension 13 Previous workup for monoclonal gammopathy Plan: The patient was seen and evaluated Chest x-ray and labs reviewed Continue heparin drip for now Plan is for perfusion lung scan in the a.m. Titrate the FiO2 as tolerated We'll continue to follow and make further recommendations based on his clinical status I have personally seen and examined the patient, performed the documentation and the assessment and plan as written. Number of minutes spent on the visit: 20.
[2021-07-16] MEDS: carvediloL 12.5 MG TAB PO SCH (17:20)
[2021-07-16] MEDS: SUCRALFATE 1 GM TAB PO SCH (17:20)
[2021-07-16] MEDS: NITROGLYCERIN OINT 1 INCH/GM PACKET TOPICAL SCH ×2 (17:21→23:38)
[2021-07-16] MEDS: [UNRECOGNIZED DRUG - OTHER] PO SCH (19:59)
[2021-07-16] MEDS: VIT A,C & E-LUTEIN-MINERALS 1 EACH TAB PO SCH (20:08)
[2021-07-16] MEDS: CHOLECALCIFEROL 25 MCG (1000 IU) TABLET PO SCH (20:08)
[2021-07-16] MEDS: LORazepam 0.5 MG TAB PO SCH (20:08)
[2021-07-16] MEDS ORDERED: NON FORMULARY DRUG (Vitamin B Complex [Vitamin B Complex] 1 EACH Capsule) PO SCH (21:00)
[2021-07-17] MEDS ORDERED: HEPARIN SODIUM 1,000 UN/ML (10ML VL) IV PRN (00:24)
[2021-07-17] MEDS: NITROGLYCERIN OINT 1 INCH/GM PACKET TOPICAL SCH ×3 (05:09→15:30)
[2021-07-17] MEDS: SUCRALFATE 1 GM TAB PO SCH ×3 (07:46→15:49)
[2021-07-17] MEDS: LORazepam 0.5 MG TAB PO SCH ×3 (07:47→20:30)
[2021-07-17] MEDS: carvediloL 12.5 MG TAB PO SCH ×2 (07:47→15:49)
[2021-07-17] MEDS: amLODIPine 5 MG TAB PO SCH (07:47)
[2021-07-17] MEDS: METHYL SALICYLATE/MENTHOL CREAM 5 OZ TOPICAL SCH ×3 (07:47→20:30)
[2021-07-17] MEDS: PANTOPRAZOLE 40 MG TABLET PO SCH (07:47)
[2021-07-17] MEDS: VIT A,C & E-LUTEIN-MINERALS 1 EACH TAB PO SCH ×2 (07:47→20:30)
--- NOTE | 2021-07-17 07:49 | NM ---
EXAMINATION TYPE: NM pul perfusion DATE OF EXAM: 07/17/2021 COMPARISON: Nuclear medicine perfusion September 17, 2020. Chest x-ray from yesterday. HISTORY: Chest pain, cough, wheeze, and difficulty breathing. History of COPD. Following administration of 5.05 mCi Tc 99m MAA. Images of the lungs in multiple projections obtaine d post injection. FINDINGS: Bilateral multifocal areas of diminished radiotracer uptake with multiple small and moderate size def ects bilaterally including large right upper lung large sized defect redemonstrated. No significant c hange from prior IMPRESSION: Nondiagnostic (low or intermediate probability). Consider CTA or direct catheter evaluation.
[2021-07-17] MEDS ORDERED: DOBUTamine DRIP for NUC MED 500 MG in DEXTROSE/WATER 1 250ML.BAG IV PRN (08:40)
[2021-07-17] MEDS ORDERED: DOBUTamine DRIP for NUC MED 500 MG/250 ML BAG IV ONE (08:40)
--- NOTE | 2021-07-17 08:40 | P.CRDCN ---
History of Present Illness History of present illness: HISTORY OF PRESENT ILLNESS: This is a 81-year-old male with a past medical history significant for hypertension, pulmonary fibrosis, chronic kidney disease, hyperlipidemia, and coronary artery disease with previous PCI to the LAD. Patient follows in the office with Dr. Apple. Patient states he had a recent stress test in February which was unrevealing before he went to [place] and has been having chest pains over the last few months. Patient presented mainly secondary to number of issues including a left-sided chest pain which is worse with deep inspiration. This has been off and on over the last few weeks and months. Patient is mostly concerned as he just recently lost his suddenly to an OR in May and therefore is scared. He is very tearful throughout exam. He denies any other alleviating or worsening maneuvers other than taking a deep breath in. He has had issues with anemia in the past and an previously been on Plavix which she was unable to tolerate as well as Effient. His states he is currently off of all aspirin. Denies any recent fevers or chills. Also admits to fairly significant dyspnea with minimal activity [place] last 2-3 months. Most recent echocardiogram obtained in January 2020 revealed ejection fraction 50-55%, mild mitral regurgitation, and mild tricuspid regurgitation Cardiac catheterization history: January 2020 with PCI to the proximal LAD. REVIEW OF SYSTEMS: At the time of my exam: CONSTITUTIONAL: Denies fever or chills. HEENT: Denies blurred vision, vision changes, or eye pain. Denies hemoptysis CARDIOVASCULAR: +chest pain. Denies orthopnea. Denies PND. Denies palpitations RESPIRATORY: Denies shortness of breath. GASTROINTESTINAL: Denies abdominal pain. Denies nausea or vomiting. HEMATOLOGIC: Denies bleeding disorders. GENITOURINARY: Denies any blood in urine. SKIN: Denies pruitis. Denies rash. PHYSICAL EXAM: VITAL SIGNS: Reviewed. GENERAL: Well-developed in no acute distress. HEENT: Head is normocephalic. Pupils are equal, round. Sclerae anicteric. Mucous membranes of the mouth are moist. Neck supple. No JVD or thyromegaly LUNGS: Respirations even and unlabored. Lungs diminished bilaterally. HEART: Regular rate and rhythm. S1 and S2 heard. ABDOMEN: Soft. Nondistended. Nontender. EXTREMITIES: Normal range of motion. No clubbing or cyanosis. Peripheral pulse s intact. No lower extremity edema NEUROLOGIC: Awake and alert. Oriented x 3. ASSESSMENT: Atypical pleuritic chest pain worse with deep inspiration. Acute coronary syndrome ruled out Minimally elevated D Dimer, VQ scan was read out as nondiagnostic, lower intermediate probability with consideration of CTA. Coronary artery disease with previous PCI to the LAD, January 2020 Dyspnea with minimal exertion Hypertension Hyperlipidemia Chronic kidney disease Pulmonary fibrosis Depression/anxiety with the of his PLAN: Patient's chest pain is atypical and appears more pleuritic. VQ scan unrevealing and less likely PE. Pulmonary recommendations appreciated. Chest pain does not appear typical of angina and troponins normal 3. Patient however extremely concerned with the of his a month and a half ago from an OR. We will check a dobutamine stress echo tomorrow for completeness sake. If abnormal would attempt medical therapy given CKD and anemia and inability to tolerate Plavix in the past. Past Medical History Past Medical History: Cancer, Chest Pain / Angina, COPD, GERD/Reflux, Hearing Disorder / Deafness, Hyperlipidemia, Hypertension, Myocardial Infarction ([place]), Osteoarthritis ([place]), Prostate Disorder, Pulmonary Embolus ([place]) Additional Past Medical History / Comment(s): Interstitial lung disease, pulmonary fibrosis, PE in 2011-pt cannot recall laterality, past home O2 use but none now, [place]-cannot tolerate Cpap, prostate cancer with radiation treatment, skin cancer with removals, nephrolithiasis, migraines, compression fracture low back, bilateral elbow fractures with surgery, PUD, jaundiced as a child, [place] bilaterally. "mild" [place] in january 2020. Last Myocardial Infarction Date:: January 2020 History of Any Multi-Drug Resistant Organisms: None Reported Past Surgical History: Appendectomy, Cholecystectomy, Heart Catheterization, Heart Catheterization With Stent, Hernia Repair, Joint Replacement, Orthopedic Surgery Additional Past Surgical History / Comment(s): Prostate biopsy, L hand partial amp of 2 fingers, L knee ACL repair, R knee arthroscopy, bilateral total elbow replacements per pt, bilateral cataract removals, L inguinal hernia repair, cardiac caths x 2, EGD, colonoscopy, skin cancer removals. Past Anesthesia/Blood Transfusion Reactions: No Reported Reaction Date of Last Stent Placement:: January 2020. Past Psychological History: Anxiety, Depression Additional Psychological History / Comment(s): pt lost two months ago Smoking Status: Former smoker Past Alcohol Use History: None Reported Additional Past Alcohol Use History / Comment(s): Pt started smoking in 1961 and quit in 2004. Past Drug Use History: None Reported - Past Family History Brother(s) Family Medical History: Cancer Additional Family Medical History / Comment(s): ONE BROTHER HAD LUNG CA & ANOTHER HAD MELANOMA. Brother just recently last week. Mother Family Medical History: AICD/Pacemaker Father Family Medical History: No Reported History Sister(s) Family Medical History: No Reported History Medications and Allergies Home Medications Medication Instructions Recorded Confirmed Type Pantoprazole Sodium [Protonix] 40 mg PO DAILY 03/08/16 07/16/21 History Cholecalciferol [Vitamin D3 (25 25 mcg PO HS 12/12/18 07/16/21 History Mcg = 1000 Iu)] Vit C/E/Zn/Coppr/Lutein/Zeaxan 1 cap PO BID 12/12/18 07/16/21 History [Preservision Areds 2 Softgel] calcium polycarbophiL [Fibercon] 625 mg PO HS 12/12/18 07/16/21 History LORazepam [Ativan] 0.5 mg PO BID 09/16/20 07/16/21 History Fedratinib Dihydrochloride 400 mg PO HS 07/16/21 07/16/21 History [Inrebic] Sucralfate [Carafate] 1 gm PO AC-TID 07/16/21 07/16/21 History Vitamin B Complex 1 cap PO HS 07/16/21 07/16/21 History amLODIPine [Norvasc] 5 mg PO DAILY 07/16/21 07/16/21 History carvediloL [Coreg*] 12.5 mg PO BID 07/16/21 07/16/21 History lidocaine HCL [lidocaine HCL 5 ml MUCOUS MEM QID PRN 07/16/21 07/16/21 History Viscous] Allergies Allergy/AdvReac Type Severity Reaction Status Date / Time alprazolam [From Xanax] AdvReac Confusion Verified 07/16/21 13:26 Physical Exam Vitals: Vital Signs Temp Pulse Pulse Pulse Resp BP BP 07/17/21 07:00 97.8 F 81 16 157/68 07/17/21 01:40 98.1 F 78 20 157/60 07/16/21 19:27 97.7 F 71 20 124/46 07/16/21 14:57 97.9 F 75 18 143/67 07/16/21 12:53 72 18 151/69 07/16/21 11:35 72 24 07/16/21 11:08 97.0 F L 79 18 145/66 Pulse Ox 07/17/21 07:00 95 07/17/21 01:40 99 07/16/21 19:27 98 07/16/21 14:57 99 07/16/21 12:53 99 07/16/21 11:35 07/16/21 11:08 99 Intake and Output 07/16/21 07/17/21 07/17/21 22:59 06:59 14:59 Intake Total 240 83.186 Balance 240 83.186 Intake: Intake, IV Titration 83.186 Amount Heparin Sod,Pork in 0.45% 83.186 NaCl 25,000 unit In 0.45 % NaCl 1 250ml.bag @ 12 UNITS/KG/HR 9.58 mls/hr IV .Q24H [facility] Rx#: [id number] Oral 240 Other: Voiding Method Toilet Toilet # Voids 1 3 Results 07/16/21 11:32 07/16/21 11:32 Cardiac Enzymes 07/16/21 07/16/21 07/16/21 Range/Units 11:32 11:32 14:14 AST 28 (17-59) U/L Troponin I <0.012 0.013 (0.000-0.034) ng/mL 07/16/21 Range/Units 16:54 AST (17-59) U/L Troponin I <0.012 (0.000-0.034) ng/mL Coagulation 07/16/21 07/16/21 Range/Units 11:32 23:45 PT 11.2 (9.0-12.0) sec APTT 23.0 35.1 H (22.0-30.0) sec CBC 07/16/21 Range/Units 11:32 WBC 6.0 (3.8-10.6) k/uL RBC 2.83 L (4.30-5.90) m/uL Hgb 8.5 L (13.0-17.5) gm/dL Hct 25.1 L (39.0-53.0) % Plt Count 198 (150-450) k/uL Comprehensive Metabolic Panel 07/16/21 Range/Units 11:32 Sodium 139 (137-145) mmol/L Potassium 4.2 (3.5-5.1) mmol/L Chloride 106 (98-107) mmol/L Carbon Dioxide 22 (22-30) mmol/L BUN 33 H (9-20) mg/dL Creatinine 2.01 H (0.66-1.25) mg/dL Glucose 180 H (74-99) mg/dL Calcium 9.1 (8.4-10.2) mg/dL AST 28 (17-59) U/L ALT 27 (4-49) U/L Alkaline Phosphatase 132 H (38-126) U/L Total Protein 7.2 (6.3-8.2) g/dL Albumin 4.3 (3.5-5.0) g/dL Current Medications Generic Name Dose Route Start Last Admin Trade Name Freq PRN Reason Stop Dose Admin Amlodipine Besylate 5 mg 07/17/21 09:00 07/17/21 07:47 Amlodipine 5 Mg Tab PO 5 mg DAILY JOSE MANUEL Administration Aspirin 325 mg 07/17/21 09:00 07/17/21 07:47 Aspirin 325 Mg Tab PO 325 mg DAILY JOSE MANUEL Administration Calcium Polycarbophil 625 mg 07/16/21 21:00 07/16/21 20:08 Calcium Polycarbophil 625 Mg Tab PO 625 mg HS JOSE MANUEL Administration Carvedilol 12.5 mg 07/16/21 17:30 07/17/21 07:47 Carvedilol 12.5 Mg Tab PO 12.5 mg BID-W/MEALS JOSE MANUEL Administration Cholecalciferol 25 mcg 07/16/21 21:00 07/16/21 20:08 Cholecalciferol 25 Mcg (1000 Iu) Tablet PO 25 mcg HS JOSE MANUEL Administration Heparin Sodium (Porcine) 0 unit 07/17/21 00:24 07/17/21 00:46 Heparin Sodium 1,000 Un/Ml (10ml Vl) IV 1,995.8 unit PER PROTOCOL PRN Administration Low PTT Protocol Heparin Sodium/Sodium Chloride 250 mls @ 9.58 mls/hr 07/16/21 15:15 07/17/21 00:42 25,000 unit/ Sodium Chloride IV 14 units/kg/hr .Q24H JOSE MANUEL 11.176 mls/hr Titration Protocol 12 UNITS/KG/HR Lidocaine HCl 5 ml 07/16/21 14:56 07/16/21 23:44 Lidocaine Viscous 2% 15 Ml Cup MUCOUS MEM 5 ml QID PRN Administration Pain Lorazepam 0.5 mg 07/16/21 21:00 07/17/21 07:47 Lorazepam 0.5 Mg Tab PO 0.5 mg BID JOSE MANUEL Administration Methyl Salicylate 1 applic 07/16/21 16:00 07/17/21 07:47 Methyl Salicylate/Menthol Cream 5 Oz TOPICAL 1 applic TID JOSE MANUEL Administration Protocol Multivitamins/Minerals 1 each 07/16/21 21:00 07/17/21 07:47 Vit A,C & X-Dviwke-Itvuumog 1 Each Tab PO 1 each BID JOSE MANUEL Administration Nitroglycerin 0.4 mg 07/16/21 12:48 Nitroglycerin Sl Tabs 0.4 Mg Tab SUBLINGUAL Q5M PRN Chest Pain Nitroglycerin 1 inch 07/16/21 18:00 07/17/21 05:09 Nitroglycerin Oint 1 Inch/Gm Packet TOPICAL Not Given Q6HR [facility] Non-Formulary Medication 400 mg 07/16/21 21:00 07/16/21 19:59 Fedratinib Dihydrochloride [Inrebic] PO Not Given HS [facility] Pantoprazole Sodium 40 mg 07/17/21 07:30 07/17/21 07:47 Pantoprazole 40 Mg Tablet PO 40 mg [id number] JOSE MANUEL Administration Sucralfate 1 gm 07/16/21 17:30 07/17/21 07:46 Sucralfate 1 Gm Tab PO 1 gm AC-TID JOSE MANUEL Administration Intake and Output 07/16/21 07/17/21 07/17/21 22:59 06:59 14:59 Intake Total 240 83.186 Balance 240 83.186 Intake: Intake, IV Titration 83.186 Amount Heparin Sod,Pork in 0.45% 83.186 NaCl 25,000 unit In 0.45 % NaCl 1 250ml.bag @ 12 UNITS/KG/HR 9.58 mls/hr IV .Q24H [facility] Rx#: [id number] Oral 240 Other: Voiding Method Toilet Toilet # Voids 1 3 07/16/21 11:32 07/16/21 11:32
[2021-07-17] MEDS ORDERED: ASPIRIN 325 MG TAB PO SCH (09:00)
[2021-07-17] MEDS ORDERED: ACETAMINOPHEN TAB 325 MG TAB PO PRN (10:43)
[2021-07-17 12:24] LABS: LDL Cholesterol,Calculated 86.6 mg/dL (0.0-131.0)
--- NOTE | 2021-07-17 13:06 | P.PN ---
Subjective Progress Note Date: 07/17/21 Principal diagnosis: chest discomfort This a very pleasant 81-year-old male patient with known history of hypertension, gastroesophageal reflux disease, anxiety, obstructive sleep apnea intolerant to CPAP, prostate cancer with previous radiation treatments, nephrolithiasis, migraines, coronary disease with previous stent placement, chronic anemia. He also has a history of interstitial lung disease/pulmonary fibrosis and pulmonary embolism back in 2011. He follows with Dr. Conrad in our office. He does not have home oxygen. He has nebulizer with treatments that he rarely uses. No maintenance inhalers. He presented to the emergency room earlier this morning with left-sided chest pain and shortness of breath. She states that showed chronic changes but no acute pulmonary process. EKG reveals normal sinus rhythm with nonspecific ST and T wave abnormalities. White count 6.0. Hemoglobin 8.5. D-dimer 0.70. Sodium 139. Potassium 4.2. BUN 33. Creatinine 2.01. Glucose 180. Troponins negative 2. ProBNP 1850. He is seen today in consultation on the regular medical floor. He is currently resting comfortably in bed. Awake and alert in no acute distress. No chest pain currently. No worsening shortness of breath cough or congestion. No hemoptysis. He is to be initiated on a heparin drip based on his elevated d- dimer. CT angiogram unable to be performed due to acute renal failure. The plan is for VQ scan tomorrow. 07/17/2021 patient seen in follow-up on medical surgical floor, he is resting comfortably in bed, does not appear to be in any acute distress, breathing comfortably. currently on 2 L of oxygen pulse ox is 99%, vital signs have been stable, patient has been afebrile, denies any chest pain, no fever chills, no phlegm production. VQ scan was completed and was nondiagnostic low or intermediate probability for pulmonary embolism. d-dimer was 0.7 on admission, 3 sets of troponins were negative, proBNP level was 1850. Renal function is impaired with creatinine of 2.01, and GFR of 35. Patient remains on heparin infusion. Today's hemoglobin is 8.5, without obvious source of bleeding. lung sounds are clear, there is no lower extremity swelling Objective - Vital Signs Vital signs: Vital Signs Temp 97.8 F 07/17/21 07:00 Pulse 81 07/17/21 07:00 Resp 16 07/17/21 07:00 BP 157/68 07/17/21 07:00 Pulse Ox 95 07/17/21 07:00 Intake & Output 07/16/21 07/17/21 07/17/21 18:59 06:59 18:59 Intake Total 240 83.186 Balance 240 83.186 Weight 79.832 kg Intake: Intake, IV Titration 83.186 Amount Heparin Sod,Pork in 0.45% 83.186 NaCl 25,000 unit In 0.45 % NaCl 1 250ml.bag @ 12 UNITS/KG/HR 9.58 mls/hr IV .Q24H [facility] Rx#: [id number] Oral 240 Other: Voiding Method Toilet Toilet Toilet # Voids 1 3 - Exam GENERAL EXAM: Alert, very pleasant, 81-year-old white male on 2 L of oxygen with a pulse ox of 96%, comfortable in no apparent distress. HEAD: Normocephalic/atraumatic. EYES: Normal reaction of pupils, equal size. Conjunctiva pink, sclera white. NOSE: Clear with pink turbinates. THROAT: No erythema or exudates. NECK: No masses, no JVD, no thyroid enlargement, no adenopathy. CHEST: No chest wall deformity. Symmetrical expansion. LUNGS: Equal air entry with no crackles, wheeze, rhonchi or dullness. CVS: Regular rate and rhythm, normal S1 and S2, no gallops, no murmurs, no rubs ABDOMEN: Soft, nontender. No hepatosplenomegaly, normal bowel sounds, no guarding or rigidity. EXTREMITIES: No clubbing, no edema, no cyanosis, 2+ pulses and upper and lower extremities. MUSCULOSKELETAL: Muscle strength and tone normal. SPINE: No scoliosis or deformity SKIN: No rashes CENTRAL NERVOUS SYSTEM: Alert and oriented -3. No focal deficits, tone is normal in all 4 extremities. PSYCHIATRIC: Alert and oriented -3. Appropriate affect. Intact judgment and insight. - Labs CBC & Chem 7: 07/16/21 11:32 07/16/21 11:32 Labs: Abnormal Lab Results - Last 24 Hours (Table) 07/16/21 07/17/21 07/17/21 Range/Units 23:45 08:14 08:14 APTT 35.1 H 48.3 H (22.0-30.0) sec HDL Cholesterol 27.60 L (40.00-60.00) mg/dL Assessment and Plan Plan: assessment: #1. Left-sided chest discomfort of unclear etiology. VQ scan was nondiagnostic of pulmonary embolism, suspicion for PE is low, cardiac workup is negative thus far #2. Shortness of breath possibly related to anemia and interstitial lung disease #3. Acute kidney injury #4. History of chronic anemia #5. History of interstitial lung disease #6. History of obstructive sleep apnea intolerant to CPAP #7. History of chronic kidney disease, stage III #8. Hyperlipidemia #9. History of pulmonary embolism #10. Prostate cancer with previous radiation #11. History of nephrolithiasis #12. Hypertension #13. 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 History of COPD with a baseline FEV1 of 70% of predicted #15. History of non-ST elevated myocardial infarction, coronary artery disease with previous stenting Plan: Will obtain lower extremity doppler to rule out DVT VQ scan was nondiagnostic for PE Suspicion for PE/DVT is low We'll continue to monitor his clinical course No chest discomfort, vital signs have been stable Follow-up labs tomorrow including CBC and BMP I have personally seen and examined the patient, performed the documentation and the assessment and plan as written. Number of minutes spent on the visit: [10] Time with Patient: Less than 30
--- NOTE | 2021-07-17 13:19 | P.HPIM ---
History of Present Illness H&P Date: 07/17/21 This is an 81-year-old male well-known to my practice who presented to the emergency room with left-sided chest pain which a has been complaining of off-and-on for approximately a week. Patient has known history of prostate cancer, known history of chronic COPD secondary to cigarette smoking he has quit several years ago. In the process of being worked up for monogammopathy evidence of neoplasm of bone marrow noted. Known enlarged spleen Patient has had intermittent abdominal pain diffuse, patient's recently unexpectedly, Mr. Ward has not adequately grieved and has been depre ssed because of this Review of Systems Constitutional: Reports as per HPI, Reports chronic headaches Ears, nose, mouth and throat: Reports as per HPI, Reports nasal congestion Cardiovascular: Reports chest pain, Reports high blood pressure, Reports irregular heart beat Respiratory: Reports dyspnea, Reports pleurisy Gastrointestinal: Reports abdominal pain (Enlarged spleen) Genitourinary: Reports as per HPI Musculoskeletal: Reports as per HPI Integumentary: Reports as per HPI Neurological: Reports as per HPI Psychiatric: Reports anxiety, Reports depression (Patient's recently unexpectedly), Reports sadness/tearfulness Endocrine: Reports as per HPI Hematologic/Lymphatic: Reports as per HPI (Anemia,) Past Medical History Past Medical History: Cancer, Chest Pain / Angina, COPD, GERD/Reflux, Hearing Disorder / Deafness, Hyperlipidemia, Hypertension, Myocardial Infarction (VT), Osteoarthritis (OA), Prostate Disorder, Pulmonary Embolus (PE) Additional Past Medical History / Comment(s): Interstitial lung disease, pulmonary fibrosis, PE in 2011-pt cannot recall laterality, past home O2 use but none now, [place]IA[place]-cannot tolerate Cpap, prostate cancer with radiation treatment, skin cancer with removals, nephrolithiasis, migraines, compression fracture low back, bilateral elbow fractures with surgery, PUD, jaundiced as a child, [place] bilaterally. "mild" VT in january 2020. Last Myocardial Infarction Date:: January 2020 History of Any Multi-Drug Resistant Organisms: None Reported Past Surgical History: Appendectomy, Cholecystectomy, Heart Catheterization, Heart Catheterization With Stent, Hernia Repair, Joint Replacement, Orthopedic Surgery Additional Past Surgical History / Comment(s): Prostate biopsy, L hand partial amp of 2 fingers, L knee ACL repair, R knee arthroscopy, bilateral total elbow replacements per pt, bilateral cataract removals, L inguinal hernia repair, cardiac caths x 2, EGD, colonoscopy, skin cancer removals. Past Anesthesia/Blood Transfusion Reactions: No Reported Reaction Date of Last Stent Placement:: January 2020. Past Psychological History: Anxiety, Depression Additional Psychological History / Comment(s): pt lost two months ago Smoking Status: Former smoker Past Alcohol Use History: None Reported Additional Past Alcohol Use History / Comment(s): Pt started smoking in 1960 and quit in 2004. Past Drug Use History: None Reported - Past Family History Brother(s) Family Medical History: Cancer Additional Family Medical History / Comment(s): ONE BROTHER HAD LUNG CA & ANOTHER HAD MELANOMA. Brother just recently last week. Mother Family Medical History: AICD/Pacemaker Father Family Medical History: No Reported History Sister(s) Family Medical History: No Reported History Medications and Allergies Home Medications Medication Instructions Recorded Confirmed Type RX: Pantoprazole Sodium [Protonix] 40 mg PO DAILY 03/08/16 07/16/21 History RX: Cholecalciferol [Vitamin D3 25 mcg PO HS 12/12/18 07/16/21 History (25 Mcg = 1000 Iu)] RX: Vit C/E/Zn/Coppr/Lutein/Zeaxan 1 cap PO BID 12/12/18 07/16/21 History [Preservision Areds 2 Softgel] RX: calcium polycarbophiL 625 mg PO HS 12/12/18 07/16/21 History [Fibercon] RX: LORazepam [Ativan] 0.5 mg PO BID 09/16/20 07/16/21 History Fedratinib Dihydrochloride 400 mg PO HS 07/16/21 07/16/21 History [Inrebic] RX: Sucralfate [Carafate] 1 gm PO AC-TID 07/16/21 07/16/21 History RX: Vitamin B Complex 1 cap PO HS 07/16/21 07/16/21 History RX: carvediloL [Coreg*] 12.5 mg PO BID 07/16/21 07/16/21 History amLODIPine [Norvasc] 5 mg PO DAILY 07/16/21 07/16/21 History lidocaine HCL [lidocaine HCL 5 ml MUCOUS MEM QID PRN 07/16/21 07/16/21 History Viscous] Allergies Allergy/AdvReac Type Severity Reaction Status Date / Time alprazolam [From Xanax] AdvReac Confusion Verified 07/16/21 13:26 Physical Exam Osteopathic Statement: *. No significant issues noted on an osteopathic structural exam other than those noted in the History and Physical/Consult. Vitals: Vital Signs Temp Pulse Pulse Resp BP Pulse Ox 07/17/21 07:00 97.8 F 81 16 157/68 95 07/17/21 01:40 98.1 F 78 20 157/60 99 07/16/21 19:27 97.7 F 71 20 124/46 98 07/16/21 14:57 97.9 F 75 18 143/67 99 Intake and Output 07/16/21 07/17/21 07/17/21 22:59 06:59 14:59 Intake Total 240 83.186 Balance 240 83.186 Intake: Intake, IV Titration 83.186 Amount Heparin Sod,Pork in 0.45% 83.186 NaCl 25,000 unit In 0.45 % NaCl 1 250ml.bag @ 12 UNITS/KG/HR 9.58 mls/hr IV .Q24H [facility] Rx#: [id number] Oral 240 Other: Voiding Method Toilet Toilet # Voids 1 3 General: [Patient awake, alert and oriented times 3. Patient in no acute di stress.] HEENT: [PERRL. EOMI. No pharyngeal erythema or exudate.] Neck: [No adenopathy.] Cardiac: [Heart regular in rate and rhythm. No S3. No S4. No clicks, rubs. No murmur.] Lungs: [Clear to auscultation bilaterally.] Abdomen: [No mass. No organomegaly. 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 CN II - XII grossly intact.] Lymphatic: [No adenopathy.] Results CBC & Chem 7: 07/16/21 11:32 07/16/21 11:32 Labs: Abnormal Lab Results - Last 24 Hours (Table) 07/16/21 07/17/21 07/17/21 Range/Units 23:45 08:14 08:14 APTT 35.1 H 48.3 H (22.0-30.0) sec HDL Cholesterol 27.60 L (40.00-60.00) mg/dL Thrombosis Risk Factor Assmnt - Choose All That Apply Each Risk Factor Represents 2 Points: Malignancy (Known history of prostate cancer, under evaluation for monoclonal gammopathy) Each Risk Factor Represents 3 Points: Age 75 years or older Thrombosis Risk Factor Assessment Total Risk Factor Score: 5 Thrombosis Risk Factor Assessment Level: High Risk Assessment and Plan Assessment: Left-sided chest discomfort likely pleuritic in nature negative troponins Shortness of breath elevated d-dimer, VQ scan not diagnostic for pulmonary embolus Acute renal failure creatinine of 2.01 History of chronic anemia recent bone marrow biopsy suggestive of neoplasm of bone marrow An enlarged spleen Interstitial lung disease History of chronic obstructive sleep apnea intolerant to CPAP History of chronic renal failure History of hyperlipidemia Known previous pulmonary embolism History of nephrolithiasis Hypertension currently well controlled Recent 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
[2021-07-17] MEDS ORDERED: HYDROcodone/APAP 7.5-325MG 1 EACH TAB PO PRN (13:32)
--- NOTE | 2021-07-17 14:03 | US ---
EXAMINATION TYPE: US venous doppler duplex LE BI DATE OF EXAM: 07/17/2021 1:28 PM COMPARISON: NONE CLINICAL HISTORY: 81-year-old male elevated d-dimer. Bilateral calf pain onset is less than a day. SIDE PERFORMED: Bilateral TECHNIQUE: The lower extremity deep venous system is examined utilizing real time linear array sonog sergio with graded compression, doppler sonography and color-flow sonography. FINDINGS: VESSELS IMAGED: Common Femoral Vein Deep Femoral Vein Greater Saphenous Vein * Femoral Vein Popliteal Vein Small Saphenous Vein * Proximal Calf Veins Posterior tibial veins Peroneal veins (* superficial vessels) Right Leg: Negative for DVT Left Leg: Negative for DVT IMPRESSION: No evidence for DVT within the bilateral lower extremities.
[2021-07-17] MEDS: [UNRECOGNIZED DRUG - OTHER] PO SCH (20:17)
[2021-07-17] MEDS: CHOLECALCIFEROL 25 MCG (1000 IU) TABLET PO SCH (20:30)
[2021-07-17] MEDS: HEPARIN SODIUM,PORCINE/PF 5,000 UNIT/0.5 ML SYRINGE SQ SCH (20:30)
[2021-07-18] MEDS: NITROGLYCERIN OINT 1 INCH/GM PACKET TOPICAL SCH ×2 (00:52→05:13)
[2021-07-18 07:33] VITALS: RESP 17
[2021-07-18] MEDS: LORazepam 0.5 MG TAB PO SCH (07:40)
--- NOTE | 2021-07-18 08:35 | P.PN ---
Subjective Progress Note Date: 07/18/21 PROGRESS NOTE The patient is an 81-year-old male with a known history of CAD who presented with chest discomfort with no evidence of acute ischemic changes. He's feeling well today except he has been under increased stress with the of his . His discomfort has respirophasic pattern. He denies any palpitations. He is in sinus mechanism. He continues to be on aspirin, Coreg 12-1/2 mg twice a day, Nitropaste, amlodipine 5 mg daily PHYSICAL EXAMINATION: Blood pressure 150/68 heart rate 88 LUNGS: Clear to auscultation HEART: Regular rate and rhythm, S1, S2. No S3. systolic ejection murmur at the base ABDOMEN: Soft, nontender, no organomegaly EXTREMETIES: No edema LAB: Cholesterol 138 , LDL 86, troponin less than 0.012 IMPRESSION: 1. Chest discomfort of unclear etiology, no evidence of acute coronary syndrome 2. History of CAD with prior stenting of the LAD in 2019 3. History of hypertension 4. History of pulmonary fibrosis PLAN: 1. Stop Nitropaste and changed to oral nitrate 2. Proceed with dobutamine stress echocardiogram, if no further symptoms and no evidence of ischemia then no further cardiac workup will be needed. Objective - Vital Signs Vital signs: Vital Signs Temp 97.8 F 07/18/21 07:00 Pulse 88 07/18/21 07:00 Resp 17 07/18/21 07:00 BP 166/60 07/18/21 07:00 Pulse Ox 93 L 07/18/21 07:00 Intake & Output 07/17/21 07/18/21 07/18/21 18:59 06:59 18:59 Intake Total 236 Balance 236 Intake: Oral 236 Other: Voiding Method Toilet Toilet # Voids 2 1 - Labs CBC & Chem 7: 07/16/21 11:32 07/16/21 11:32 Labs: Abnormal Lab Results - Last 24 Hours (Table) 07/17/21 07/17/21 Range/Units 08:14 08:14 APTT 48.3 H (22.0-30.0) sec HDL Cholesterol 27.60 L (40.00-60.00) mg/dL
[2021-07-18] MEDS: carvediloL 12.5 MG TAB PO SCH (08:46)
[2021-07-18] MEDS: PANTOPRAZOLE 40 MG TABLET PO SCH (08:52)
[2021-07-18] MEDS: amLODIPine 5 MG TAB PO SCH (08:52)
[2021-07-18] MEDS: SUCRALFATE 1 GM TAB PO SCH ×2 (08:52→13:22)
[2021-07-18] MEDS: HEPARIN SODIUM,PORCINE/PF 5,000 UNIT/0.5 ML SYRINGE SQ SCH (08:52)
[2021-07-18] MEDS: VIT A,C & E-LUTEIN-MINERALS 1 EACH TAB PO SCH (08:53)
[2021-07-18] MEDS: METHYL SALICYLATE/MENTHOL CREAM 5 OZ TOPICAL SCH (08:53)
[2021-07-18] MEDS ORDERED: ISOSORBIDE MONONITRATE ER 30 MG TAB.ER.24H PO SCH (09:00)
[2021-07-18] MEDS ORDERED: ASPIRIN 81 MG PO SCH (09:00)
[2021-07-18 10:52] LABS: African American GFR (CKD) 33.4 (60.0-200.0); Anion Gap 17.9 mmol/L (10.00-18.00); BUN/Creat Ratio 13.14 Ratio (12.00-20.00); Blood Urea Nitrogen 27.6 mg/dL (9.0-27.0); Calcium 9.1 mg/dL (8.7-10.3); Carbon Dioxide 17.1 mmol/L (20.0-27.5); Non-African American GFR(CKD) 28.9 (60.0-200.0); Potassium 4.1 mmol/L (3.5-5.5)
[2021-07-18 11:19] LABS: HCT 22.7 % (39.6-50.0); HGB 7.2 g/dL (13.0-17.0); MCH 28.5 pg (27.0-32.0); MCHC 31.7 g/dL (32.0-37.0); MCV 89.7 fL (80.0-97.0); Mean Platelet Volume 12.1 fL (9.5-12.2); NRBC Per 100 WBC 3.5 /100 WBCS (0.0-0.0); Platelet Count 174 X 10*3/uL (140-440); RBC 2.53 X 10*6/uL (4.40-5.60); RDW 21.8 % (11.5-14.5); WBC 4.03 X 10*3/uL (4.50-10.00)
[2021-07-18 11:29] LABS: Basophils # (A) 0.05 X 10*3/uL (0.00-0.10); Basophils % (A) 1.2 %; Eosinophils # (A) 0.04 X 10*3/uL (0.04-0.35); Lymphocytes # (A) 0.63 X 10*3/uL (0.90-5.00); Lymphocytes % (A) 15.6 %; Monocytes # (A) 0.35 X 10*3/uL (0.20-1.00); Monocytes % (A) 8.7 %; Neutrophils # (A) 2.88 X 10*3/uL (1.80-7.70); Neutrophils % (A) 71.5 %
--- NOTE | 2021-07-18 13:17 | P.PN ---
Subjective Progress Note Date: 07/18/21 Principal diagnosis: chest discomfort This a very pleasant 81-year-old male patient with known history of hypertension, gastroesophageal reflux disease, anxiety, obstructive sleep apnea intolerant to CPAP, prostate cancer with previous radiation treatments, nephrolithiasis, migraines, coronary disease with previous stent placement, chronic anemia. He also has a history of interstitial lung disease/pulmonary fibrosis and pulmonary embolism back in 2011. He follows with Dr. Conrad in our office. He does not have home oxygen. He has nebulizer with treatments that he rarely uses. No maintenance inhalers. He presented to the emergency room earlier this morning with left-sided chest pain and shortness of breath. She states that showed chronic changes but no acute pulmonary process. EKG reveals normal sinus rhythm with nonspecific ST and T wave abnormalities. White count 6.0. Hemoglobin 8.5. D-dimer 0.70. Sodium 139. Potassium 4.2. BUN 33. Creatinine 2.01. Glucose 180. Troponins negative 2. ProBNP 1850. He is seen today in consultation on the regular medical floor. He is currently resting comfortably in bed. Awake and alert in no acute distress. No chest pain currently. No worsening shortness of breath cough or congestion. No hemoptysis. He is to be initiated on a heparin drip based on his elevated d- dimer. CT angiogram unable to be performed due to acute renal failure. The plan is for VQ scan tomorrow. 07/17/2021 patient seen in follow-up on medical surgical floor, he is resting comfortably in bed, does not appear to be in any acute distress, breathing comfortably. currently on 2 L of oxygen pulse ox is 99%, vital signs have been stable, patient has been afebrile, denies any chest pain, no fever chills, no phlegm production. VQ scan was completed and was nondiagnostic low or intermediate probability for pulmonary embolism. d-dimer was 0.7 on admission, 3 sets of troponins were negative, proBNP level was 1850. Renal function is impaired with creatinine of 2.01, and GFR of 35. Patient remains on heparin infusion. Today's hemoglobin is 8.5, without obvious source of bleeding. lung sounds are clear, there is no lower extremity swelling On 07/18/2021 patient seen in follow-up on medical surgical floor. He is resti ng comfortably in bed, he has returned from his dobutamine stress echo, results are pending, vital signs are stable, he is breathing comfortably, room air pulse ox is 94%, afebrile, no cough, no chest discomfort, no phlegm production. Lower extremity Dopplers were negative for DVT, today's labs have been reviewed, white blood cell count is 4.03, hemoglobin is 7.2, sodium was 141, potassium is 4.1, CO2 17, BUN is 27, and creatinine is 2.1. He has had no acute events overnight. No specific complaints other than being tearful and depressed about the loss of his . Objective - Vital Signs Vital signs: Vital Signs Temp 97.8 F 07/18/21 07:00 Pulse 88 07/18/21 07:00 Resp 17 07/18/21 08:00 BP 166/60 07/18/21 07:00 Pulse Ox 93 L 07/18/21 07:00 Intake & Output 07/17/21 07/18/21 07/18/21 18:59 06:59 18:59 Intake Total 236 Balance 236 Intake: Oral 236 Other: Voiding Method Toilet Toilet Toilet # Voids 2 1 - Exam GENERAL EXAM: Alert, very pleasant, 81-year-old white male on 2 L of oxygen with a pulse ox of 96%, comfortable in no apparent distress. HEAD: Normocephalic/atraumatic. EYES: Normal reaction of pupils, equal size. Conjunctiva pink, sclera white. NOSE: Clear with pink turbinates. THROAT: No erythema or exudates. NECK: No masses, no JVD, no thyroid enlargement, no adenopathy. CHEST: No chest wall deformity. Symmetrical expansion. LUNGS: Equal air entry with no crackles, wheeze, rhonchi or dullness. CVS: Regular rate and rhythm, normal S1 and S2, no gallops, no murmurs, no rubs ABDOMEN: Soft, nontender. No hepatosplenomegaly, normal bowel sounds, no guarding or rigidity. EXTREMITIES: No clubbing, no edema, no cyanosis, 2+ pulses and upper and lower extremities. MUSCULOSKELETAL: Muscle strength and tone normal. SPINE: No scoliosis or deformity SKIN: No rashes CENTRAL NERVOUS SYSTEM: Alert and oriented -3. No focal deficits, tone is normal in all 4 extremities. PSYCHIATRIC: Alert and oriented -3. Appropriate affect. Intact judgment and insight. - Labs CBC & Chem 7: 07/18/21 07:50 07/18/21 07:50 Labs: Abnormal Lab Results - Last 24 Hours (Table) 07/18/21 07/18/21 Range/Units 07:50 07:50 WBC 4.03 L (4.50-10.00) X 10*3/uL RBC 2.53 L (4.40-5.60) X 10*6/uL Hgb 7.2 L (13.0-17.0) g/dL Hct 22.7 L (39.6-50.0) % MCHC 31.7 L (32.0-37.0) g/dL RDW 21.8 H (11.5-14.5) % Absolute Nucleated RBC 0.14 H (0.00-0.00) X 10*3/uL Immature Gran # 0.08 H (0.00-0.04) X 10*3/uL Lymphocytes # 0.63 L (0.90-5.00) X 10*3/uL NRBC/100 WBC Diff 3.5 H (0.0-0.0) /100 WBCS Carbon Dioxide 17.1 L (20.0-27.5) mmol/L BUN 27.6 H (9.0-27.0) mg/dL Creatinine 2.1 H (0.6-1.5) mg/dL Est GFR (CKD-EPI)AfAm 33.4 L (60.0-200.0) Est GFR (CKD-EPI)NonAf 28.9 L (60.0-200.0) Assessment and Plan Plan: assessment: #1. Left-sided chest discomfort of unclear etiology. VQ scan was nondiagnostic of pulmonary embolism, suspicion for PE is low, cardiac workup is negative thus far. Lower extremity Dopplers were negative #2. Shortness of breath possibly related to anemia and interstitial lung disease #3. Acute kidney injury #4. History of chronic anemia #5. History of interstitial lung disease #6. History of obstructive sleep apnea intolerant to CPAP #7. History of chronic kidney disease, stage III #8. Hyperlipidemia #9. History of pulmonary embolism #10. Prostate cancer with previous radiation #11. History of nephrolithiasis #12. Hypertension #13. 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 History of COPD with a baseline FEV1 of 70% of predicted #15. History of non-ST elevated myocardial infarction, coronary artery disease with previous stenting Plan: No worsening dyspnea, no hypoxia, Vital signs are stable, patient is afebrile No chest discomfort, Lower extremity Dopplers were negative for DVT, VQ scan was nondiagnostic for PE Patient had a dobutamine stress echocardiogram, awaiting results Could be considered for discharge once cleared by cardiology I have personally seen and examined the patient, performed the documentation and the assessment and plan as written. Number of minutes spent on the visit: [10] I have personally seen and examined the patient, reviewed the NURSING SECRETARY /PAs history, exam and MDM and agree with the assessment and plan as written. Based on total visit time, I have performed more than 50% of the visit. The patient will be discharged home today to be followed up on outpatient basis Time with Patient: Less than 30
[2021-07-18] MEDS ORDERED: LOPERAMIDE 2 MG CAP PO STA (13:26)
[2021-07-18] MEDS ORDERED: ESCITALOPRAM 5 MG TAB PO SCH (14:00)
[2021-07-18 14:34] VITALS: BP 130/55; PULSE 89; TEMP 97.5
--- NOTE | 2021-07-18 15:06 | ECHOS ---
STRESS ECHOCARDIOGRAM INDICATIONS: Chest pain BASELINE HEART RATE: 78 BASELINE BLOOD PRESSURE: 108/53 MAXIMUM HEART RATE: 121 MAXIMUM BLOOD PRESSURE: 174/79 85% MPHR: 119 100% MPHR: 140 METS: NA MAXIMUM STAGE REACHED: 4 TOTAL EXERCISE TIME: 11:11 CLINICAL INFORMATION: Baseline rhythm is a sinus mechanism, rate of 78, normal axis and intervals, poor R- wave progression. Baseline blood pressure 108/53 mmHg. Patient received infusion of dobutamine per protocol; peak rate 121 beats per minute, which is equal to 86% of maximum predicted heart rate. Peak blood pressure 172/76 mmHg. Electrocardiograph monitoring revealed rare PVCs. There was a [address]-segment depression in the inferolateral lead that improved in recovery. FINDINGS: Baseline echocardiogram revealed normal wall thickness and motion. At peak infusion there was normal wall motion augmentation with no hypokinesis or dyskinesis. CONCLUSION: 1. Borderline positive electrocardiographic response to dobutamine infusion. 2. Normal stress echocardiogram with no evidence of stress-induced ischemia. MMODL / IJN: [id number] /
--- NOTE | 2021-07-20 10:28 | P.DS ---
Providers Date of admission: 07/16/21 12:54 Expected date of discharge: 07/18/21 Attending physician: Barrington Goyal Consults: 07/16/21 12:48 Consult Physician Urgent Consulting Provider: [facility] Consult Reason/Comments: Chest pain Do you want consulting provider notified?: Yes 07/16/21 15:06 Consult Physician Routine Consulting Provider: Lico Antonio Consult Reason/Comments: SOB elevated ddimer Do you want consulting provider notified?: Yes Primary care physician: Barrington Goyal [facility] Course: Final Diagnoses: Left-sided chest discomfort likely pleuritic in nature negative troponins Shortness of breath elevated d-dimer, VQ scan not diagnostic for pulmonary embolus Acute renal failure creatinine of 2.01 History of chronic anemia recent bone marrow biopsy suggestive of neoplasm of bone marrow An enlarged spleen Interstitial lung disease History of chronic obstructive sleep apnea intolerant to CPAP History of chronic renal failure History of hyperlipidemia Known previous pulmonary embolism History of nephrolithiasis Hypertension currently well controlled 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 Patient has known history of prostate cancer, known history of chronic COPD secondary to cigarette smoking he has quit several years ago. In the process of being worked up for monogammopathy evidence of neoplasm of bone marrow noted. Known enlarged spleen Patient has had intermittent abdominal pain diffuse, patient's recently unexpectedly, Mr. Ward has not adequately grieved and has been depressed because of this Scheduled for stress test today. Significant clinical improvement, denies any chest pain, palpitations or shortness of breath this morning. Grieving over his passed recently, recommend grief counseling. Patient will be discharged home today pending stress test, final DC recommendations and clearance per cardiology, in a stable condition with guarded prognosis. The impression and plan of care has been dictated as directed. : I performed a history and examination of this patient, discussed the same with the dictator. I agree with the dictator's note ,documented as a scribe. Any additional findings or plans will be noted. Patient Condition at Discharge: Stable Plan - Discharge Summary New Discharge Prescriptions: New Isosorbide Mononitrate ER [Imdur] 30 mg PO DAILY #30 tablet Escitalopram [Lexapro] 5 mg PO Q24H #30 tab Continue Pantoprazole Sodium [Protonix] 40 mg PO DAILY Cholecalciferol [Vitamin D3 (25 Mcg = 1000 Iu)] 25 mcg PO HS Vit C/E/Zn/Coppr/Lutein/Zeaxan [Preservision Areds 2 Softgel] 1 cap PO BID calcium polycarbophiL [Fibercon] 625 mg PO HS LORazepam [Ativan] 0.5 mg PO BID amLODIPine [Norvasc] 5 mg PO DAILY lidocaine HCL [lidocaine HCL Viscous] 5 ml MUCOUS MEM QID PRN PRN Reason: Pain Fedratinib Dihydrochloride [Inrebic] 400 mg PO HS Vitamin B Complex 1 cap PO HS Sucralfate [Carafate] 1 gm PO AC-TID carvediloL [Coreg*] 12.5 mg PO BID Discharge Medication List Pantoprazole Sodium [Protonix] 40 mg PO DAILY 03/08/16 [History] Cholecalciferol [Vitamin D3 (25 Mcg = 1000 Iu)] 25 mcg PO HS 12/12/18 [History] Vit C/E/Zn/Coppr/Lutein/Zeaxan [Preservision Areds 2 Softgel] 1 cap PO BID 12/12/18 [History] calcium polycarbophiL [Fibercon] 625 mg PO HS 12/12/18 [History] LORazepam [Ativan] 0.5 mg PO BID 09/16/20 [History] Fedratinib Dihydrochloride [Inrebic] 400 mg PO HS 07/16/21 [History] Sucralfate [Carafate] 1 gm PO AC-TID 07/16/21 [History] Vitamin B Complex 1 cap PO HS 07/16/21 [History] amLODIPine [Norvasc] 5 mg PO DAILY 07/16/21 [History] carvediloL [Coreg*] 12.5 mg PO BID 07/16/21 [History] lidocaine HCL [lidocaine HCL Viscous] 5 ml MUCOUS MEM QID PRN 07/16/21 [History] Escitalopram [Lexapro] 5 mg PO Q24H #30 tab 07/18/21 [Rx] Isosorbide Mononitrate ER [Imdur] 30 mg PO DAILY #30 tablet 07/18/21 [Rx] Follow up Appointment(s)/Referral(s): Barrington Goyal Jr, [Primary Care Provider] - 07/20/21 Ambulatory/Diagnostic Orders: Complete Blood Count w/diff [LAB.AMB] Time Frame: 3 Days, Location: None Selected Patient Instructions/Handouts: Chest Pain (DC) Activity/Diet/Wound Care/Special Instructions: Pending final DC recommendations and clearance per cardiology. Confirm cardiology follow-up appointment prior to discharge.
== END 2021-07-18 14:50 ==
LOC: EC 11:07 → 6NMEDSUR 12:54
PROVIDERS: ADMIT Family Medicine; ATTEND Family Medicine
DX: R07.89 Other chest pain (principal); R06.00 Dyspnea, unspecified; F41.9 Anxiety disorder, unspecified; J44.9 Chronic obstructive pulmonary disease, unspecified; Z85.46 Personal history of malignant neoplasm of prostate; Z87.891 Personal history of nicotine dependence; R16.1 Splenomegaly, not elsewhere classified; F32.A Depression, unspecified; Z92.3 Personal history of irradiation; Z87.442 Personal history of urinary calculi; I25.10 Atherosclerotic heart disease of native coronary artery without angina pectoris; I25.2 Old myocardial infarction; Z95.5 Presence of coronary angioplasty implant and graft; I12.9 Hypertensive chronic kidney disease with stage 1 through stage 4 chronic kidney disease, or unspecified chronic kidney disease; N18.30 Chronic kidney disease, stage 3 unspecified; N17.9 Acute kidney failure, unspecified; D64.89 Other specified anemias; G47.33 Obstructive sleep apnea (adult) (pediatric); E78.5 Hyperlipidemia, unspecified; H91.90 Unspecified hearing loss, unspecified ear; J84.10 Pulmonary fibrosis, unspecified; Z80.1 Family history of malignant neoplasm of trachea, bronchus and lung; Z80.8 Family history of malignant neoplasm of other organs or systems; Z86.711 Personal history of pulmonary embolism; Z85.828 Personal history of other malignant neoplasm of skin; Z79.02 Long term (current) use of antithrombotics/antiplatelets; Z79.82 Long term (current) use of aspirin; Z79.899 Other long term (current) drug therapy
CPT/HCPCS: 96376; 96365; 96366 ×2; 96372 ×2; 96375; 99285; 36415; 93005; 93351; 86900; 86901; 85379; 83880; 80061; 80053; 80048; 83605; 83735; 84484; 85025 ×2; 85610; 85730 ×3; 86850; 87635; 71046; 93970; 78580; G0378 ×3; A9540; J2060; J1250; J1644 ×4

== ENCOUNTER → 2021-08-08 | Outpatient (CLI) | payer MEDICARE ==
--- NOTE | 2021-08-08 16:20 | CT ---
EXAMINATION TYPE: CT abdomen pelvis wo con DATE OF EXAM: 08/08/2021 COMPARISON: 12/17/2018 HISTORY: anemia CT DLP: 437.7 mGycm Examination of the solid and hollow viscera is limited given the lack of contrast. FINDINGS: LUNG BASES: No evidence for nodule. No evidence for infiltrate. LIVER/GB: The gallbladder is unremarkable. No space-occupying hepatic lesion. PANCREAS: No pancreatic mass identified. No inflammatory process seen. SPLEEN: Splenomegaly with craniocaudal measurement of 21.2 cm. Previous splenic measurement is 15.4 c m craniocaudal dimension. ADRENALS: No adrenal nodules identified. No evidence for thickening. KIDNEYS: No evidence for renal mass. Nephrolithiasis nonobstructing within the lower pole of the righ t kidney and interpolar to midpole left kidney. No hydronephrosis. BOWEL: Appendix has a normal appearance. No evidence of bowel obstruction. No inflammatory process. Lymph nodes: No evidence for adenopathy greater than 1 cm. Abdominal aorta: Atheromatous changes seen. 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 Genital organs: No significant abnormality. Other: Right hip prosthesis with streak artifact extending into the pelvis. Severe degenerative wna e lumbar spine. Retrolisthesis of L2 on L3. IMPRESSION: 1. Progressive splenomegaly. 2. Nonobstructing nephrolithiasis.
== END | disposition home or self-care (01) ==
LOC: RADCTMAIN 13:40
PROVIDERS: ATTEND Internal Medicine Hematology & Oncology
DX: R16.1 Splenomegaly, not elsewhere classified (principal); N20.0 Calculus of kidney
CPT/HCPCS: 74176

== ENCOUNTER 2021-08-18 18:35 | Inpatient (IN) | payer MEDICARE ==
--- NOTE | 2021-08-18 20:12 | XR ---
EXAMINATION TYPE: XR chest 2V DATE OF EXAM: 08/18/2021 8:01 PM COMPARISON: Multiple radiographs, with the most recent on 07/16/2021 TECHNIQUE: XR chest 2V . CLINICAL INDICATION:Male, 81 years old with history of Weakness; FINDINGS: Lungs/Pleura: There is flattening of the diaphragm with increased lucency of the lungs. No evidence o f pneumothorax, pleural effusion or focal consolidation. Pulmonary vascularity: Unremarkable. Heart/mediastinum: Cardiomediastinal silhouette is unremarkable. Musculoskeletal: No acute osseous pathology. IMPRESSION: 1. No acute cardiopulmonary disease process. 2. COPD changes.
[2021-08-18 21:28] LABS: INR 1.1 (<1.2); Partial Thromboplastin Time 27.7 sec (22.0-30.0); Prothrombin Time 11.6 sec (9.0-12.0)
[2021-08-18 21:36] LABS: Anisocytosis Moderate; HCT 30.1 % (39.0-53.0); HGB 9.6 gm/dL (13.0-17.5); Hypochromasia Moderate; MCH 27.3 pg (25.0-35.0); MCHC 31.8 g/dL (31.0-37.0); MCV 85.9 fL (80.0-100.0); Mean Platelet Volume 10.2; Microcytosis Slight; Platelet Count 249 k/uL (150-450); Poikilocytosis Moderate; RBC 3.51 m/uL (4.30-5.90); RDW 20.4 % (11.5-15.5)
--- NOTE | 2021-08-18 21:39 | ED ---
Weakness HPI - General Chief complaint: Weakness Stated complaint: Anemia Time Seen by Provider: 08/18/21 21:38 Source: patient, RN notes reviewed, old records reviewed, Caregiver Mode of arrival: ambulatory Limitations: no limitations - History of Present Illness Initial comments: This is an 81-year-old male to the emergency department for evaluation. Patient's been going through a lot lately, loss of his and multiple medical problems himself. Patient presents today with recent history of significant anemia, weakness shortness of breath and does admit to anxiety and depression. No travel history no sick contacts no chest pain. Patient is very anxious here in the emergency room, patient presents with daughter who does provide most of the history. MD Complaint: generalized weakness, lack of energy, difficulty walking -: days(s) Location: generalized Severity: moderate Severity scale (1-10): 6 Consistency: constant Improves with: none Worsens with: none Context: history of similar, depression Associated Symptoms: loss of appetite, nausea/vomiting, shortness of breath - Related Data Home Medications Medication Instructions Recorded Confirmed Pantoprazole Sodium [Protonix] 40 mg PO DAILY 03/08/16 08/18/21 Vit C/E/Zn/Coppr/Lutein/Zeaxan 1 cap PO HS 12/12/18 08/18/21 [Preservision Areds 2 Softgel] calcium polycarbophiL [Fibercon] 625 mg PO HS 12/12/18 08/18/21 LORazepam [Ativan] 1 mg PO TID@0800,1500,2000 09/16/20 08/18/21 Sucralfate [Carafate] 1 gm PO AC-TID 07/16/21 08/18/21 carvediloL [Coreg*] 12.5 mg PO BID 07/16/21 08/18/21 lidocaine HCL [lidocaine HCL 5 ml MUCOUS MEM QID PRN 07/16/21 08/18/21 Viscous] Cholecalciferol [Vitamin D3 (25 25 mcg PO HS 08/18/21 08/18/21 Mcg = 1000 Iu)] Ergocalciferol (Vitamin D2) 1,250 mcg PO FR 08/18/21 08/18/21 [Drisdol (50,000 Iu)] Megestrol Acetate 800 mg PO DIRECTED 08/18/21 08/18/21 Super B Complex 1 tab PO HS 08/18/21 08/18/21 amLODIPine BESYLATE [Norvasc] 5 mg PO DAILY 08/18/21 08/18/21 Previous Rx's Medication Instructions Recorded Isosorbide Mononitrate ER [Imdur] 30 mg PO DAILY #30 tablet 07/18/21 Allergies Allergy/AdvReac Type Severity Reaction Status Date / Time alprazolam [From Xanax] AdvReac Confusion Verified 08/18/21 23:03 Review of Systems ROS Statement: Those systems with pertinent positive or pertinent negative responses have been documented in the HPI. ROS Other: All systems not noted in ROS Statement are negative. Past Medical History Past Medical History: Cancer, Chest Pain / Angina, COPD, GERD/Reflux, Hearing Disorder / Deafness, Hyperlipidemia, Hypertension, Myocardial Infarction ([place]), Osteoarthritis (OA), Prostate Disorder, Pulmonary Embolus (PE) Additional Past Medical History / Comment(s): Interstitial lung disease, pulmonary fibrosis, PE in 2011-pt cannot recall laterality, past home O2 use but none now, [place]IA[place]-cannot tolerate Cpap, prostate cancer with radiation treatment, skin cancer with removals, nephrolithiasis, migraines, compression fracture low back, bilateral elbow fractures with surgery, PUD, jaundiced as a child, [place] bilaterally. "mild" [place] in january 2020. Last Myocardial Infarction Date:: January 2020 History of Any Multi-Drug Resistant Organisms: None Reported Past Surgical History: Appendectomy, Cholecystectomy, Heart Catheterization, Heart Catheterization With Stent, Hernia Repair, Joint Replacement, Orthopedic Surgery Additional Past Surgical History / Comment(s): Prostate biopsy, L hand partial amp of 2 fingers, L knee ACL repair, R knee arthroscopy, bilateral total elbow replacements per pt, bilateral cataract removals, L inguinal hernia repair, cardiac caths x 2, EGD, colonoscopy, skin cancer removals. Past Anesthesia/Blood Transfusion Reactions: No Reported Reaction Date of Last Stent Placement:: January 2020. Past Psychological History: Anxiety, Depression Smoking Status: Former smoker Past Alcohol Use History: None Reported Past Drug Use History: None Reported - Past Family History Brother(s) Family Medical History: Cancer Additional Family Medical History / Comment(s): ONE BROTHER HAD LUNG CA & ANOTHER HAD MELANOMA. Brother just recently last week. Mother Family Medical History: AICD/Pacemaker Father Family Medical History: No Reported History Sister(s) Family Medical History: No Reported History General Exam Limitations: no limitations General appearance: anxious Head exam: Present: atraumatic, normocephalic, normal inspection Eye exam: Present: normal appearance, PERRL, EOMI. Absent: scleral icterus, conjunctival injection, periorbital swelling ENT exam: Present: normal exam, mucous membranes dry Neck exam: Present: normal inspection. Absent: tenderness, meningismus, lymphadenopathy Respiratory exam: Present: respiratory distress, wheezes, accessory muscle use, decreased breath sounds, prolonged expiratory. Absent: rales, rhonchi, stridor Cardiovascular Exam: Present: regular rate, normal rhythm, normal heart sounds. Absent: systolic murmur, diastolic murmur, rubs, gallop, clicks GI/Abdominal exam: Present: soft, normal bowel sounds. Absent: distended, tenderness, guarding, rebound, rigid Extremities exam: Present: normal inspection, full ROM, normal capillary refill. Absent: tenderness, pedal edema, joint swelling, calf tenderness Back exam: Present: normal inspection Neurological exam: Present: alert, oriented X3, CN II-XII intact Psychiatric exam: Present: normal affect, normal mood Skin exam: Present: warm, dry, intact, normal color. Absent: rash Course Vital Signs 08/18/21 05 19:22 22:00 Temperature 97.8 F Pulse Rate 91 83 Respiratory 16 20 Rate Blood Pressure 153/73 158/64 O2 Sat by Pulse 97 94 L Oximetry - Reevaluation(s) Reevaluation #1: 08/19/21 00:29 Medical record is reviewed Reevaluation #2: 08/19/21 00:29 Patient is informed results and questions are answered Reevaluation #3: 08/19/21 00:29 Patient has no significant improvement here in the ER Reevaluation #4: 08/19/21 00:29 Patient admits to depression and anxiety denies suicidal or homicidal thoughts - Consultations Consultation #1: Spoke with Dr. Hays who will admit this patient EKG Findings - EKG Comments: EKG Findings:: EKG is sinus rhythm 83 FL 150 QRS 90 QTC 386 Medical Decision Making - Medical Decision Making 81 male to the ER for evaluation patient presents to the emergency department today for evaluation regards to multiple complaints shortness of breath COPD exacerbation, depression and anxiety, acute kidney injury and dehydration and elevated troponin, we'll trend troponin treated breathing and patient will receive psychiatric evaluation patient does follow Dr. rodriguez for anemia and will see Dr. haas here in the ER - Lab Data Result diagrams: 08/18/21 21:03 08/18/21 21:03 Lab Results 08/18/21 08/18/21 08/18/21 Range/Units 21:03 21:03 21:03 WBC 9.0 (3.8-10.6) k/uL RBC 3.51 L (4.30-5.90) m/uL Hgb 9.6 L (13.0-17.5) gm/dL Hct 30.1 L (39.0-53.0) % MCV 85.9 (80.0-100.0) fL MCH 27.3 (25.0-35.0) pg MCHC 31.8 (31.0-37.0) g/dL RDW 20.4 H (11.5-15.5) % Plt Count 249 (150-450) k/uL MPV 10.2 Neutrophils % (Manual) 78 % Band Neuts % (Manual) 3 % Lymphocytes % (Manual) 9 % Monocytes % (Manual) 6 % Eosinophils % (Manual) 2 % Basophils % (Manual) 1 % Metamyelocytes % 2 % Myelocytes % 1 % Neutrophils # (Manual) 7.20 (1.3-7.7) k/uL Lymphocytes # (Manual) 0.81 L (1.0-4.8) k/uL Monocytes # (Manual) 0.54 (0-1.0) k/uL Eosinophils # (Manual) 0.18 (0-0.7) k/uL Basophils # (Manual) 0.09 (0-0.2) k/uL Metamyelocytes # (Man) 0.18 H (0) k/uL Myelocytes # (Manual) 0.09 H (0) k/uL Nucleated RBCs 5 H (0-0) /100 WBC Manual Slide Review Performed Hypochromasia Moderate Poikilocytosis Moderate Anisocytosis Moderate Microcytosis Slight Tear Drop Cells Present Ovalocytes Present PT 11.6 (9.0-12.0) sec INR 1.1 (<1.2) APTT 27.7 (22.0-30.0) sec Sodium 138 (137-145) mmol/L Potassium 3.9 (3.5-5.1) mmol/L Chloride 107 (98-107) mmol/L Carbon Dioxide 24 (22-30) mmol/L Anion Gap 7 mmol/L BUN 20 (9-20) mg/dL Creatinine 1.93 H (0.66-1.25) mg/dL Est GFR (CKD-EPI)AfAm 37 (>60 ml/min/1.73 sqM) Est GFR (CKD-EPI)NonAf 32 (>60 ml/min/1.73 sqM) Glucose 113 H (74-99) mg/dL Plasma Lactic Acid Mateo (0.7-2.0) mmol/L Calcium 8.8 (8.4-10.2) mg/dL Phosphorus (2.5-4.5) mg/dL Magnesium (1.6-2.3) mg/dL Total Bilirubin 2.1 H (0.2-1.3) mg/dL AST 31 (17-59) U/L ALT 15 (4-49) U/L Alkaline Phosphatase 159 H (38-126) U/L Troponin I (0.000-0.034) ng/mL Total Protein 6.8 (6.3-8.2) g/dL Albumin 3.9 (3.5-5.0) g/dL Urine Color Urine Appearance (Clear) Urine pH (5.0-8.0) Ur Specific Campbell (1.001-1.035) Urine Protein (Negative) Urine Glucose (UA) (Negative) Urine Ketones (Negative) Urine Blood (Negative) Urine Nitrite (Negative) Urine Bilirubin (Negative) Urine Urobilinogen (<2.0) mg/dL Ur Leukocyte Esterase (Negative) Urine RBC (0-5) /hpf Urine WBC (0-5) /hpf Urine Bacteria (None) /hpf Hyaline Casts (0-2) /lpf Urine Mucus (None) /hpf Blood Type Blood Type Recheck Bld Type Recheck Status Antibody Screen Spec Expiration Date 08/18/21 08/18/21 08/18/21 Range/Units 21:03 21:03 21:03 WBC (3.8-10.6) k/uL RBC (4.30-5.90) m/uL Hgb (13.0-17.5) gm/dL Hct (39.0-53.0) % MCV (80.0-100.0) fL MCH (25.0-35.0) pg MCHC (31.0-37.0) g/dL RDW (11.5-15.5) % Plt Count (150-450) k/uL MPV Neutrophils % (Manual) % Band Neuts % (Manual) % Lymphocytes % (Manual) % Monocytes % (Manual) % Eosinophils % (Manual) % Basophils % (Manual) % Metamyelocytes % % Myelocytes % % Neutrophils # (Manual) (1.3-7.7) k/uL Lymphocytes # (Manual) (1.0-4.8) k/uL Monocytes # (Manual) (0-1.0) k/uL Eosinophils # (Manual) (0-0.7) k/uL Basophils # (Manual) (0-0.2) k/uL Metamyelocytes # (Man) (0) k/uL Myelocytes # (Manual) (0) k/uL Nucleated RBCs (0-0) /100 WBC Manual Slide Review Hypochromasia Poikilocytosis Anisocytosis Microcytosis Tear Drop Cells Ovalocytes PT (9.0-12.0) sec INR (<1.2) APTT (22.0-30.0) sec Sodium (137-145) mmol/L Potassium (3.5-5.1) mmol/L Chloride (98-107) mmol/L Carbon Dioxide (22-30) mmol/L Anion Gap mmol/L BUN (9-20) mg/dL Creatinine (0.66-1.25) mg/dL Est GFR (CKD-EPI)AfAm (>60 ml/min/1.73 sqM) Est GFR (CKD-EPI)NonAf (>60 ml/min/1.73 sqM) Glucose (74-99) mg/dL Plasma Lactic Acid Mateo 0.9 (0.7-2.0) mmol/L Calcium (8.4-10.2) mg/dL Phosphorus (2.5-4.5) mg/dL Magnesium (1.6-2.3) mg/dL Total Bilirubin (0.2-1.3) mg/dL AST (17-59) U/L ALT (4-49) U/L Alkaline Phosphatase (38-126) U/L Troponin I 0.013 (0.000-0.034) ng/mL Total Protein (6.3-8.2) g/dL Albumin (3.5-5.0) g/dL Urine Color Urine Appearance (Clear) Urine pH (5.0-8.0) Ur Specific Campbell (1.001-1.035) Urine Protein (Negative) Urine Glucose (UA) (Negative) Urine Ketones (Negative) Urine Blood (Negative) Urine Nitrite (Negative) Urine Bilirubin (Negative) Urine Urobilinogen (<2.0) mg/dL Ur Leukocyte Esterase (Negative) Urine RBC (0-5) /hpf Urine WBC (0-5) /hpf Urine Bacteria (None) /hpf Hyaline Casts (0-2) /lpf Urine Mucus (None) /hpf Blood Type O Negative Blood Type Recheck O Neg Bld Type Recheck Status No Antibody Screen NEGATIVE Spec Expiration Date 08/21/2021 - 230208/18/21 08/18/21 Range/Units 21:03 23:25 WBC (3.8-10.6) k/uL RBC (4.30-5.90) m/uL Hgb (13.0-17.5) gm/dL Hct (39.0-53.0) % MCV (80.0-100.0) fL MCH (25.0-35.0) pg MCHC (31.0-37.0) g/dL RDW (11.5-15.5) % Plt Count (150-450) k/uL MPV Neutrophils % (Manual) % Band Neuts % (Manual) % Lymphocytes % (Manual) % Monocytes % (Manual) % Eosinophils % (Manual) % Basophils % (Manual) % Metamyelocytes % % Myelocytes % % Neutrophils # (Manual) (1.3-7.7) k/uL Lymphocytes # (Manual) (1.0-4.8) k/uL Monocytes # (Manual) (0-1.0) k/uL Eosinophils # (Manual) (0-0.7) k/uL Basophils # (Manual) (0-0.2) k/uL Metamyelocytes # (Man) (0) k/uL Myelocytes # (Manual) (0) k/uL Nucleated RBCs (0-0) /100 WBC Manual Slide Review Hypochromasia Poikilocytosis Anisocytosis Microcytosis Tear Drop Cells Ovalocytes PT (9.0-12.0) sec INR (<1.2) APTT (22.0-30.0) sec Sodium (137-145) mmol/L Potassium (3.5-5.1) mmol/L Chloride (98-107) mmol/L Carbon Dioxide (22-30) mmol/L Anion Gap mmol/L BUN (9-20) mg/dL Creatinine (0.66-1.25) mg/dL Est GFR (CKD-EPI)AfAm (>60 ml/min/1.73 sqM) Est GFR (CKD-EPI)NonAf (>60 ml/min/1.73 sqM) Glucose (74-99) mg/dL Plasma Lactic Acid Mateo (0.7-2.0) mmol/L Calcium (8.4-10.2) mg/dL Phosphorus 3.9 (2.5-4.5) mg/dL Magnesium 2.0 (1.6-2.3) mg/dL Total Bilirubin (0.2-1.3) mg/dL AST (17-59) U/L ALT (4-49) U/L Alkaline Phosphatase (38-126) U/L Troponin I (0.000-0.034) ng/mL Total Protein (6.3-8.2) g/dL Albumin (3.5-5.0) g/dL Urine Color Yellow Urine Appearance Clear (Clear) Urine pH 6.0 (5.0-8.0) Ur Specific Campbell 1.014 (1.001-1.035) Urine Protein 1+ H (Negative) Urine Glucose (UA) Negative (Negative) Urine Ketones Negative (Negative) Urine Blood Negative (Negative) Urine Nitrite Negative (Negative) Urine Bilirubin Negative (Negative) Urine Urobilinogen <2.0 (<2.0) mg/dL Ur Leukocyte Esterase Negative (Negative) Urine RBC 1 (0-5) /hpf Urine WBC 2 (0-5) /hpf Urine Bacteria Rare H (None) /hpf Hyaline Casts 1 (0-2) /lpf Urine Mucus Rare H (None) /hpf Blood Type Blood Type Recheck Bld Type Recheck Status Antibody Screen Spec Expiration Date Disposition Clinical Impression: Anxiety, Dyspnea, Elevated troponin, Dehydration, Depression, COPD (chronic obstructive pulmonary disease) Disposition: ADMITTED IP TO THIS HOSP Condition: Good Is patient prescribed a controlled substance at d/c from ED?: No Referrals: Barrington Goyal Jr, [Primary Care Provider] - 1-2 days
[2021-08-18 21:46] LABS: Albumin 3.9 g/dL (3.5-5.0); Calcium 8.8 mg/dL (8.4-10.2); Potassium 3.9 mmol/L (3.5-5.1); Total Bilirubin 2.1 mg/dL (0.2-1.3); Total Protein 6.8 g/dL (6.3-8.2)
[2021-08-18] MEDS ORDERED: SODIUM CHLORIDE 0.9% 500 ML 500 ML IV STA (21:47)
[2021-08-18] MEDS ORDERED: methylPREDNISolone SOD SUCCI 125 MG/2 ML VIAL IV STA (21:47)
[2021-08-18 22:03] LABS: Band Neutrophils % 3 %; Metamyelocytes % 2 %; Myelocytes % 1 %; Neutrophils % (M) 78 %; Nucleated Red Blood Cells 5 /100 WBC (0-0); Total Cells Counted 200
[2021-08-18 22:04] LABS: Basophils # (M) 0.09 k/uL (0-0.2); Eosinophils # (M) 0.18 k/uL (0-0.7); Lymphocytes # (M) 0.81 k/uL (1.0-4.8); Metamyelocytes # (M) 0.18 k/uL (0); Monocytes # (M) 0.54 k/uL (0-1.0); Myelocytes # (M) 0.09 k/uL (0)
[2021-08-18 22:08] LABS: Ovalocytes Present; Tear Drop Cells Present
[2021-08-18 22:28] LABS: Phosphorus 3.9 mg/dL (2.5-4.5)
[2021-08-18] MEDS ORDERED: LORazepam 2 MG/ML INJ IV STA (22:28)
[2021-08-18] MEDS: SODIUM CHLORIDE 0.9% 1,000 ML IV SCH (23:19)
[2021-08-19 00:15] LABS: Appearance,Urine Clear (Clear); Bacteria,Urine Rare /hpf; Bilirubin,Urine Negative (Negative); Blood,Urine Negative (Negative); Color,Urine Yellow; Glucose,Urine (UA) Negative (Negative); Hyaline Casts,Urine 1 /lpf (0-2); Ketones,Urine Negative (Negative); Leukocyte Esterase,Urine Negative (Negative); Mucus,Urine Rare /hpf; Nitrite,Urine Negative (Negative); Protein,Urine 1+ (Negative); RBC,Urine 1 /hpf (0-5); Specific Gravity,Urine 1.014 (1.001-1.035); Urobilinogen,Urine <2.0 mg/dL (<2.0); WBC,Urine 2 /hpf (0-5)
[2021-08-19] MEDS ORDERED: NALOXONE 0.4 MG/ML 1 ML VIAL IV PRN (00:25)
[2021-08-19] MEDS ORDERED: MORPHINE SULFATE 4 MG/ML SYRINGE IV PRN (00:25)
[2021-08-19] MEDS ORDERED: ACETAMINOPHEN TAB 325 MG TAB PO PRN (00:25)
[2021-08-19] MEDS ORDERED: LORazepam 2 MG/ML INJ IV PRN (00:25)
[2021-08-19] MEDS ORDERED: IPRATROPIUM-ALBUTEROL 3 ML NEB INHALATION PRN ×2 (00:27→12:03)
[2021-08-19] MEDS ORDERED: SODIUM CHLORIDE 0.9% 1,000 ML IV SCH (00:30)
[2021-08-19] MEDS: SODIUM CHLORIDE 0.9% 1,000 ML IV SCH ×2 (05:59→08:55)
[2021-08-19] MEDS: methylPREDNISolone SOD SUCCI 125 MG/2 ML VIAL IV SCH ×3 (06:05→17:34)
[2021-08-19] MEDS ORDERED: PANTOPRAZOLE 40 MG/10 ML VIAL IV SCH (09:00)
[2021-08-19] MEDS ORDERED: LIDOCAINE VISCOUS 300 MG/15 ML CUP MUCOUS MEM PRN (12:05)
[2021-08-19] MEDS ORDERED: ISOSORBIDE MONONITRATE ER 30 MG TAB.ER.24H PO SCH (12:08)
[2021-08-19] MEDS ORDERED: ERGOCALCIFEROL 1,250 MCG (50,000 IU) CAPSULE PO SCH (12:15)
[2021-08-19] MEDS ORDERED: amLODIPine 5 MG TAB PO SCH (12:15)
[2021-08-19] MEDS ORDERED: PANTOPRAZOLE 40 MG TABLET PO SCH (12:15)
[2021-08-19] MEDS: carvediloL 12.5 MG TAB PO SCH ×2 (12:24→17:42)
[2021-08-19] MEDS ORDERED: SUCRALFATE 1 GM TAB PO SCH (12:30)
[2021-08-19 13:21] VITALS: BMI 23.3
[2021-08-19] MEDS ORDERED: ESCITALOPRAM 5 MG TAB PO SCH (13:30)
--- NOTE | 2021-08-19 13:37 | P.CN ---
Psychiatric Consult - . Consult date: 08/19/21 Consult:: 08/19/21 12:39 IDENTIFYING DATA: This patient is a 81-year-old male, currently lives alone in a house, has 1 son, is . REASON FOR REFERRAL: Psychiatry was consulted for psychiatric evaluation HISTORY OF PRESENT ILLNESS: The patient presented to the hospital yesterday with his daughter. Apparently patient has been having weakness and spoke of a multiple home stressors. He apparently has a history of anemia and also anxiety and depression. Apparently patient was presenting as very anxious and psychiatry consult was placed. Patient is currently on Ativan 3 times a day. His urinalysis was negative. Patient was seen at the bedside today and agreeable to speak to movie writer. He had somewhat of a constricted affect. She mentioned dealing with his medical conditions and difficult as he has anemia and COPD. He states that he has been feeling depressed since his in May. He states that she of a heart attack. He was fairly tearful when speaking about his . He claims that he is "tired of this" relating to dealing with his medical issues and how he is living his life. He claims that his appetite is poor. He states that his sleep has been poor. He claims that he does have a son who is fairly supportive however works a lot and has not been able to make much time to help him. At this time patient denies any suicidal or homical ideations, intent or plan. Patient denies any auditory, visual hallucinations and denies any paranoia or delusions. Patients admits to using no recreational drugs or cigarettes. Patient was fairly future oriented and claims that he "would never kill myself or hurt anybody else" PAST PSYCHIATRIC HISTORY: Patient has a a history of anxiety and depression. Patient is currently on Ativan 1 mg 3 times a day and has been on this for several years. Patient denies any previous psychiatric hospitalizations. Patient denies any psychiatric outpatient follow-up. Patient denies any history of suicide attempts in the past. Past Medical History: Cancer, Chest Pain / Angina, COPD, GERD/Reflux, Hearing Disorder / Deafness, Hyperlipidemia, Hypertension, Myocardial Infarction (VT), Osteoarthritis (OA), Prostate Disorder, Pulmonary Embolus (PE) Additional Past Medical History / Comment(s): Interstitial lung disease, pulmonary fibrosis, PE in 2012-pt cannot recall laterality, past home O2 use but none now, RIANA-cannot tolerate Cpap, prostate cancer with radiation treatment, skin cancer with removals, nephrolithiasis, migraines, compression fracture low back, bilateral elbow fractures with surgery, PUD, jaundiced as a child, [place] bilaterally. "mild" VT in january 2020. ALLERGIES: as per EMR. CHEMICAL DEPENDENCY HISTORY: as per HPI. FAMILY PSYCHIATRIC/SUBSTANCE USE HISTORY: denies SOCIAL HISTORY: Patient was born and raised in [place]. 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 He states that he completed high school. He claims that he does not have a legal history. He states that he currently lives alone in a house he has one son. He is currently . MENTAL STATUS EXAM: General Appearance: Patient appears to be elderly, stated age is alert, pleasant, and attempting to be cooperative. Patient appears to have fair hygiene and grooming wearing hospital gown with fair eye contact. Behavior: Patient is calmly lying in bed without any agitated behavior. Tearful at times. Attempts to cooperate. Speech: Patient's speech is fluent and nonpressured. Mood/Affect: Patient reports their mood is "kind of depressed", affect is congruent and tearful at times. Suicidality/Homicidality: Patient denies having any suicidal or homicidal ideation intent or plan. Perceptions: Patient denies any visual hallucinations and denies any auditory hallucinations Though content/process: There is no evidence of any delusional thought content and thought process is linear and goal-directed. Future oriented. Memory and concentration: AOX3, grossly intact for the purposes of this session. Can spell "WORLD" backwards Judgment and insight: Fair IMPRESSIONS: Depressive disorder unspecified, grief reaction versus adjustment disorder versus major depression. Generalized anxiety disorder PLAN: -At this time patient DOES NOT meet criteria for inpatient psychiatric admission. -Delirium precautions recommended with patient including - avoiding use of narcotics and MANAGER MATERIAL sedatives, limit anticholinergic medications when possible, frequent re-orientation, minimize use of restraints, open window shades during the day and close them at night -Would recommend the following medication changes/additions: Start Lexapro 5 mg daily for mood/anxiety, melatonin 3 mg daily at bedtime for sleep. -order worker to provide patient with outpatient mental health/psychiatry resources for appropriate follow up upon discharge. Patient would be a good candidate for outpatient therapy and was encouraged to do so. -Prior to discharge, Primary team or family welfare social work professor to ensure that guns/weapons are locked away or removed from the house. -Will continue to follow along tomorrow -Please contact with any questions. 08/19/21 13:31
[2021-08-19 14:41] VITALS: BP 152/69; PULSE 87; RESP 15; TEMP 97.8
[2021-08-19] MEDS ORDERED: LORazepam 1 MG TAB PO SCH (15:00)
[2021-08-19] MEDS: INSULIN ASPART (NovoLOG) 100 UNIT/ML VIAL SQ SCH ×2 (15:04→17:41)
[2021-08-19] MEDS: MEGESTROL 400 MG/10 ML CUP PO SCH ×2 (15:08→15:19)
--- NOTE | 2021-08-19 16:22 | P.HPIM ---
History of Present Illness H&P Date: 08/19/21 Chief Complaint: Shortness of breath, generalized weakness, depression, grieving History and physical and discharge summary Hospital course: This is an 81-year-old gentleman well-known to Dr. Goyal and Dr. Hays's practice with past medical history of hypertension, gastroesophageal reflux disease, anxiety, obstructive sleep apnea intolerant to CPAP, prostate cancer with prior radiation treatments, nephrolithiasis, migraines, coronary disease with previous stent placement, chronic anemia, interstitial lung disease/pulmonary fibrosis, PE presented to the ER with multiple complaints, mild increase in shortness of breath, including increased generalized weakness, depression, grieving over his 's recent in May 2021. Teary-eyed, depressed. Reports significant anxiety/depression over his medical issues in addition to his grieving. Ate well this morning, consumed 100% of breakfast but states when he is home alone he has a poor appetite. Denies any suicidal or homicidal ideations. Past Medical History Past Medical History: Cancer, Chest Pain / Angina, COPD, GERD/Reflux, Hearing Disorder / Deafness, Hyperlipidemia, Hypertension, Myocardial Infarction (MS), Osteoarthritis (OA), Prostate Disorder, Pulmonary Embolus (PE) Additional Past Medical History / Comment(s): Interstitial lung disease, pulmonary fibrosis, PE in 2011-pt cannot recall laterality, past home O2 use but none now, RIANA-cannot tolerate Cpap, prostate cancer with radiation treatment, skin cancer with removals, nephrolithiasis, migraines, compression fracture low back, bilateral elbow fractures with surgery, PUD, jaundiced as a child, [place] bilaterally. "mild" MS in january 2020. Last Myocardial Infarction Date:: January 2020 History of Any Multi-Drug Resistant Organisms: None Reported Past Surgical History: Appendectomy, Cholecystectomy, Heart Catheterization, Heart Catheterization With Stent, Hernia Repair, Joint Replacement, Orthopedic Surgery Additional Past Surgical History / Comment(s): Prostate biopsy, L hand partial amp of 2 fingers, L knee ACL repair, R knee arthroscopy, bilateral total elbow replacements per pt, bilateral cataract removals, L inguinal hernia repair, cardiac caths x 2, EGD, colonoscopy, skin cancer removals. Past Anesthesia/Blood Transfusion Reactions: No Reported Reaction Date of Last Stent Placement:: January 2020. Past Psychological History: Anxiety, Depression Additional Psychological History / Comment(s): pt lost two months ago Smoking Status: Former smoker Past Alcohol Use History: None Reported Additional Past Alcohol Use History / Comment(s): Pt started smoking in 1961 and quit in 2004. Past Drug Use History: None Reported - Past Family History Brother(s) Family Medical History: Cancer Additional Family Medical History / Comment(s): ONE BROTHER HAD LUNG CA & ANOTHER HAD MELANOMA. Brother just recently last week. Mother Family Medical History: AICD/Pacemaker Father Family Medical History: No Reported History Sister(s) Family Medical History: No Reported History Medications and Allergies Home Medications Medication Instructions Recorded Confirmed Type Pantoprazole Sodium [Protonix] 40 mg PO DAILY 03/08/16 08/18/21 History Vit C/E/Zn/Coppr/Lutein/Zeaxan 1 cap PO HS 12/12/18 08/18/21 History [Preservision Areds 2 Softgel] calcium polycarbophiL [Fibercon] 625 mg PO HS 12/12/18 08/18/21 History LORazepam [Ativan] 0.5 mg PO TID@0800,1500,2000 09/16/20 08/19/21 History Sucralfate [Carafate] 1 gm PO AC-TID 07/16/21 08/18/21 History carvediloL [Coreg*] 12.5 mg PO BID 07/16/21 08/18/21 History lidocaine HCL [lidocaine HCL 5 ml MUCOUS MEM QID PRN 07/16/21 08/18/21 History Viscous] Isosorbide Mononitrate ER [Imdur] 30 mg PO DAILY #30 tablet 07/18/21 08/18/21 Rx Cholecalciferol [Vitamin D3 (25 25 mcg PO HS 08/18/21 08/18/21 History Mcg = 1000 Iu)] Ergocalciferol (Vitamin D2) 1,250 mcg PO FR 08/18/21 08/18/21 History [Drisdol (50,000 Iu)] Megestrol Acetate 800 mg PO DIRECTED 08/18/21 08/18/21 History Super B Complex 1 tab PO HS 08/18/21 08/18/21 History amLODIPine BESYLATE [Norvasc] 5 mg PO DAILY 08/18/21 08/18/21 History Acetaminophen Tab [Tylenol] 650 mg PO Q6HR PRN tab 08/19/21 Rx Escitalopram [Lexapro] 5 mg PO DAILY #30 tab 08/19/21 Rx predniSONE 10 mg PO DIRECTED #30 tab 08/19/21 Rx Allergies Allergy/AdvReac Type Severity Reaction Status Date / Time alprazolam [From Xanax] AdvReac Confusion Verified 08/19/21 09:00 Physical Exam Vitals: Vital Signs Temp Pulse Pulse Resp BP BP Pulse Ox 08/19/21 14:40 97.8 F 87 15 152/69 91 L 08/19/21 07:00 98.2 F 86 16 155/64 95 08/19/21 06:00 97.8 F 88 22 135/84 96 08/19/21 03:00 86 20 148/78 98 08/19/21 01:00 98 F 84 20 157/64 97 08/19/21 00:00 98 F 88 20 155/65 97 08/18/21 22:00 83 20 158/64 94 L 08/18/21 19:22 97.8 F 91 16 153/73 97 Intake and Output 08/19/21 08/19/21 08/19/21 06:59 14:59 22:59 Intake Total 180 Balance 180 Intake: Oral 180 Other: Voiding Method Toilet # Voids 2 # Bowel Movements 1 Weight 78.018 kg Results CBC & Chem 7: 08/18/21 21:03 08/18/21 21:03 Labs: Abnormal Lab Results - Last 24 Hours (Table) 08/18/21 08/18/21 08/18/21 Range/Units 21:03 21:03 23:25 RBC 3.51 L (4.30-5.90) m/uL Hgb 9.6 L (13.0-17.5) gm/dL Hct 30.1 L (39.0-53.0) % RDW 20.4 H (11.5-15.5) % Lymphocytes # (Manual) 0.81 L (1.0-4.8) k/uL Metamyelocytes # (Man) 0.18 H (0) k/uL Myelocytes # (Manual) 0.09 H (0) k/uL Nucleated RBCs 5 H (0-0) /100 WBC Creatinine 1.93 H (0.66-1.25) mg/dL Glucose 113 H (74-99) mg/dL Total Bilirubin 2.1 H (0.2-1.3) mg/dL Alkaline Phosphatase 159 H (38-126) U/L Urine Protein 1+ H (Negative) Urine Bacteria Rare H (None) /hpf Urine Mucus Rare H (None) /hpf Thrombosis Risk Factor Assmnt - Choose All That Apply Each Risk Factor Represents 3 Points: Age 75 years or older Thrombosis Risk Factor Assessment Total Risk Factor Score: 3 Thrombosis Risk Factor Assessment Level: Moderate Risk Assessment and Plan Assessment: Mild shortness of breath, possible acute COPD exacerbation History of chronic anemia 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 Patient will be discharged home on steroid taper. Patient has been cleared by psychiatry with recommendations noted and appreciated. Patient will be discharged home today in a stable condition with guarded prognosis. Discharge Medication List Pantoprazole Sodium [Protonix] 40 mg PO DAILY 03/08/16 [History] Vit C/E/Zn/Coppr/Lutein/Zeaxan [Preservision Areds 2 Softgel] 1 cap PO HS 0 12/12/18 [History] calcium polycarbophiL [Fibercon] 625 mg PO HS 12/12/18 [History] LORazepam [Ativan] 0.5 mg PO TID@0800,1500,2000 09/16/20 [History] Sucralfate [Carafate] 1 gm PO AC-TID 07/16/21 [History] carvediloL [Coreg*] 12.5 mg PO BID 07/16/21 [History] lidocaine HCL [lidocaine HCL Viscous] 5 ml MUCOUS MEM QID PRN 07/16/21 [History] Isosorbide Mononitrate ER [Imdur] 30 mg PO DAILY #30 tablet 07/18/21 [Rx] Cholecalciferol [Vitamin D3 (25 Mcg = 1000 Iu)] 25 mcg PO HS 08/18/21 [History] Ergocalciferol (Vitamin D2) [Drisdol (50,000 Iu)] 1,250 mcg PO FR 08/18/21 [History] Megestrol Acetate 800 mg PO DIRECTED 08/18/21 [History] Super B Complex 1 tab PO HS 08/18/21 [History] amLODIPine BESYLATE [Norvasc] 5 mg PO DAILY 08/18/21 [History] Acetaminophen Tab [Tylenol] 650 mg PO Q6HR PRN tab 08/19/21 [Rx] Escitalopram [Lexapro] 5 mg PO DAILY #30 tab 08/19/21 [Rx] predniSONE 10 mg PO DIRECTED #30 tab 08/19/21 [Rx] The impression and plan of care has been dictated as directed. : I performed a history and examination of this patient, discussed the same with the dictator. I agree with the dictator's note ,documented as a scribe. Any additional findings or plans will be noted.
[2021-08-19 17:14] LABS: Glucose,Whole Blood 179 mg/dL (75-99)
--- NOTE | 2021-08-19 20:25 | P.CONS ---
History of Present Illness - Reason for Consult Consult date: 08/19/21 Myelofibrosis and Monoclonal gammopathy Requesting physician: Leonid Pederson - History of Present Illness Mr Ward is a pleasant white male with multiple medical problems. These include a history of hypertension, coronary artery disease, and hypercholesterolemia. The patient was admitted to the hospital in 02/02 for ND, requiring stenting. labs revealed that admission showed creatinine of 1.95, with hemoglobin of 11.5, WBC 8.9 and platelets 209. The patient was subsequently found to have BENIGNO positivity. He was referred to rheumatology, and labs done on 02/24/20 showed elevated kappa light chain at 77.7 mg/L as well as elevated lambda light chain at to 3.4 mg/L with a ratio 2.33, upper limit of normal being 1.65. The patient also had a 15% monoclonal spike on immunofixation results are not available to us. He was therefore referred here for further evaluation and recommendations. He has a history of prostate cancer, treated with radiation, in 2019 currently in complete remission according to him. Hemoglobin on 02/24/20 was 11.5, with other indices essentially normal. Iron studies were also normal. In 01/03, ultrasound of the KUB had revealed enlarged spleen at 18.[address] brain without contrast in 02/02 had shown age-related changes. Ultrasound KUB in 02/02 had shown splenomegaly again, as well as nonobstructing right renal calculi. 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 Both light chains were again elevated in the serum, with ratio 2.11. Light chains were also elevated in the urine with ratio normal. No measurable M protein was noted in the urine or serum. he was therefore placed on observation The patient was admitted to the hospital in early 05/06 with accidental fall and right hip fracture. He underwent right hemiarthroplasty. Hemoglobin had dropped during his hospitalization to 8.7. He was discharged on oral iron. the patient was admitted again in early 10/04 because of shortness of breath, after starting Brillinta. During that admission, splenomegaly was noted to be more prominent on physical exam. CBC also showed a mild left shift with small number of myelocytes and metamyelocytes. Protein electrophoresis studies and CBC however showed no change compared to before. post discharge, the patient had a directed ultrasound of the spleen which showed size of 16.9 cm, versus 20.8 cm noted on prior KUB ultrasound in 02/02. Protein electrophoresis studies showed no progression. WBC differential and peripheral smear review showed a fairly mild left shift. Ultrasound also consistently showed heterogenous appearing liver. therefore it was felt that the patient had splenomegaly due to chronic liver disease. However on further follow-up he continued to have progressive enlarge ment of the spleen, as well as intermittent WBC elevations with intermittent left shift. Therefore at his visit on 01/11/21, he had MPD related mutations tested. This was positive for INEZ 2 [id number] mmutation, confirming primary myeloproliferative disorder. Based on his clinical situation myelofibrosis appeared to be most likely. This was discussed with the patient and he was subsequently, ultimately agreeable to have a bone marrow aspiration biopsy that was performed on 02/26/21. This confirmed primary myelofibrosis. He also had MDS FISH performed that was negative. The pt was recommended [facility]. he left for [place] in the winter in early 04/05 and started the medication there. He also established with an oncologist there. the patient states that he is tolerating the medication well without any subjective side effects. However he did experience a drop in hemoglobin and states that he was started on some shots by his oncologist in [place]. records were subsequently obtained showing that the patient had actually been started on Inrebec. He had also been receiving adequate 20,000 units subcutaneous every week. 07/14/21-Pt here for f/u. He was on inrebic for about 3 mo, he was taken off for inability swallow 1 week ago. Apr 27 started it in [facility] and did well until recently. Pt has had similar symptoms before but not this severe. He states he had an EGD with Dr. Arceo, can't remember why, but denied any diagnosis treatment after. He points to the upper chest/lower throat when he is describing the "burning" pain, happens when he swallows. He denies fever, nausea, vomiting, hematemesis, cough, abd pain, acute changes in bowel habits, black or bloody stool. He is VERY tired, has no energy, Hgb is 8 today. He states in [facility] he was started on a blood booster shot, he was also going to have a port placed. as above. The patient did stop his regimen as he was told that the sore throat was decided to that. However we were unable to find definite documentation of that in the literature. the patient states that his sore throat did improve with holding the medication. He started back on his regimen on 07/22/21. He has not yet started back on FELICIA, pending insurance approval. He states that since starting back on his regimen, he has had rapidly progressive fatigue to where he has difficulty in even walking to the bathroom. Over the past couple of days he has had episodes of right-sided abdominal pain with at least 1 episode of large volume diarrhea. She denied any fevers/chills/nausea vomiting. it hospital admission for left-s ided chest discomfort in early 08/05 with workup, including stress test negative. He had a stress test in 02/03 which she states was normal. he had been having some indigestion and dyspepsia which is markedly improved with PPI and Carafate, and subsequently with lactose avoidance. No new bone pain noted. Review of systems otherwise as per HPI and negative out of 10 08/10/21-In f/u today pt remains off of inrebic. He c/o "ain't got no air", just saw Pulmonolgist who states its because of anemia-pt has been anemic since [place] in Apr. Stomach pain, hasn't taken anything for it, he stopped the carafate. He cont to be depressed and wants to feel better. We reviewed his CT AP which confirmed that his spleen has increased in size about 6cm, we discussed likely disease progression. He wants to know when he is going to . He now presents with shortness of breath. worsening renal function, dehydration and mental status change. Review of Systems All systems: negative Constitutional: Reports as per HPI Past Medical History Past Medical History: Cancer, Chest Pain / Angina, COPD, GERD/Reflux, Hearing Disorder / Deafness, Hyperlipidemia, Hypertension, Myocardial Infarction (ND), Osteoarthritis (OA), Prostate Disorder, Pulmonary Embolus (PE) Additional Past Medical History / Comment(s): Interstitial lung disease, pulmonary fibrosis, PE in 2011-pt cannot recall laterality, past home O2 use but none now, RIANA-cannot tolerate Cpap, prostate cancer with radiation treatment, skin cancer with removals, nephrolithiasis, migraines, compression fracture low back, bilateral elbow fractures with surgery, PUD, jaundiced as a child, [place] bilaterally. "mild" ND in january 2020. Last Myocardial Infarction Date:: January 2020 History of Any Multi-Drug Resistant Organisms: None Reported Past Surgical History: Appendectomy, Cholecystectomy, Heart Catheterization, Heart Catheterization With Stent, Hernia Repair, Joint Replacement, Orthopedic Surgery Additional Past Surgical History / Comment(s): Prostate biopsy, L hand partial amp of 2 fingers, L knee ACL repair, R knee arthroscopy, bilateral total elbow replacements per pt, bilateral cataract removals, L inguinal hernia repair, cardiac caths x 2, EGD, colonoscopy, skin cancer removals. Past Anesthesia/Blood Transfusion Reactions: No Reported Reaction Date of Last Stent Placement:: January 2020. Past Psychological History: Anxiety, Depression Additional Psychological History / Comment(s): pt lost two months ago Smoking Status: Former smoker Past Alcohol Use History: None Reported Additional Past Alcohol Use History / Comment(s): Pt started smoking in 1960 and quit in 2004. Past Drug Use History: None Reported - Past Family History Brother(s) Family Medical History: Cancer Additional Family Medical History / Comment(s): ONE BROTHER HAD LUNG CA & ANOTHER HAD MELANOMA. Brother just recently last week. Mother Family Medical History: AICD/Pacemaker Father Family Medical History: No Reported History Sister(s) Family Medical History: No Reported History Medications and Allergies Home Medications Medication Instructions Recorded Confirmed Type Pantoprazole Sodium [Protonix] 40 mg PO DAILY 03/08/16 08/18/21 History Vit C/E/Zn/Coppr/Lutein/Zeaxan 1 cap PO HS 12/12/18 08/18/21 History [Preservision Areds 2 Softgel] calcium polycarbophiL [Fibercon] 625 mg PO HS 12/12/18 08/18/21 History LORazepam [Ativan] 0.5 mg PO TID@0800,1500,2000 09/16/20 08/19/21 History Sucralfate [Carafate] 1 gm PO AC-TID 07/16/21 08/18/21 History carvediloL [Coreg*] 12.5 mg PO BID 07/16/21 08/18/21 History lidocaine HCL [lidocaine HCL 5 ml MUCOUS MEM QID PRN 07/16/21 08/18/21 History Viscous] Isosorbide Mononitrate ER [Imdur] 30 mg PO DAILY #30 tablet 07/18/21 08/18/21 Rx Cholecalciferol [Vitamin D3 (25 25 mcg PO HS 08/18/21 08/18/21 History Mcg = 1000 Iu)] Ergocalciferol (Vitamin D2) 1,250 mcg PO FR 08/18/21 08/18/21 History [Drisdol (50,000 Iu)] Megestrol Acetate 800 mg PO DIRECTED 08/18/21 08/18/21 History Super B Complex 1 tab PO HS 08/18/21 08/18/21 History amLODIPine BESYLATE [Norvasc] 5 mg PO DAILY 08/18/21 08/18/21 History Acetaminophen Tab [Tylenol] 650 mg PO Q6HR PRN tab 08/19/21 Rx Escitalopram [Lexapro] 5 mg PO DAILY #30 tab 08/19/21 Rx predniSONE 10 mg PO DIRECTED #30 tab 08/19/21 Rx Allergies Allergy/AdvReac Type Severity Reaction Status Date / Time alprazolam [From Xanax] AdvReac Confusion Verified 08/19/21 09:00 Physical Exam Vitals: Vital Signs Temp Pulse Pulse Resp BP BP Pulse Ox 08/19/21 07:00 98.2 F 86 16 155/64 95 08/19/21 06:00 97.8 F 88 22 135/84 96 08/19/21 03:00 86 20 148/78 98 08/19/21 01:00 98 F 84 20 157/64 97 08/19/21 00:00 98 F 88 20 155/65 97 08/18/21 22:00 83 20 158/64 94 L 08/18/21 19:22 97.8 F 91 16 153/73 97 Intake and Output 08/18/21 08/19/21 08/19/21 22:59 06:59 14:59 Intake Total 180 Balance 180 Intake: Oral 180 Other: Voiding Method Toilet Weight 78.018 kg 78.018 kg - Constitutional General appearance: cooperative - EENT ENT: hard of hearing - Neck Neck: normal ROM - Respiratory Respiratory: bilateral: diminished - Cardiovascular Rhythm: regularly irregular - Gastrointestinal General gastrointestinal: distended, tenderness - Integumentary Integumentary: pale - Musculoskeletal Musculoskeletal: generalized weakness - Psychiatric Psychiatric: A&O x's 3 Results CBC & Chem 7: 08/18/21 21:03 08/18/21 21:03 Labs: Abnormal Lab Results - Last 24 Hours (Table) 08/18/21 08/18/21 08/18/21 Range/Units 21:03 21:03 23:25 RBC 3.51 L (4.30-5.90) m/uL Hgb 9.6 L (13.0-17.5) gm/dL Hct 30.1 L (39.0-53.0) % RDW 20.4 H (11.5-15.5) % Lymphocytes # (Manual) 0.81 L (1.0-4.8) k/uL Metamyelocytes # (Man) 0.18 H (0) k/uL Myelocytes # (Manual) 0.09 H (0) k/uL Nucleated RBCs 5 H (0-0) /100 WBC Creatinine 1.93 H (0.66-1.25) mg/dL Glucose 113 H (74-99) mg/dL Total Bilirubin 2.1 H (0.2-1.3) mg/dL Alkaline Phosphatase 159 H (38-126) U/L Urine Protein 1+ H (Negative) Urine Bacteria Rare H (None) /hpf Urine Mucus Rare H (None) /hpf Assessment and Plan (1) Anemia Status: Acute Code(s): D64.9 - ANEMIA, UNSPECIFIED SNOMED Code(s): 476684591 (2) Myelofibrosis Status: Acute Code(s): D75.81 - MYELOFIBROSIS SNOMED Code(s): 36883727 (3) Acute dyspnea Status: Acute Code(s): R06.00 - DYSPNEA, UNSPECIFIED SNOMED Code(s): 637865799 (4) CKD (chronic kidney disease), stage III Status: Acute Code(s): N18.30 - CHRONIC KIDNEY DISEASE, STAGE 3 UNSPECIFIED SNOMED Code(s): 944793789 Plan: CTA to further assess for PE Continue Hydration Recheck Renal Function in am Dr. Cantu: I have completed the full history an physical and developed the above impression and plan, agree with dictation, dictated as a scribe
[2021-08-19] MEDS ORDERED: FOLIC ACID-VIT B COMPLEX-VIT C 1 CAP PO SCH (21:00)
[2021-08-19] MEDS ORDERED: VIT A,C & E-LUTEIN-MINERALS 1 EACH TAB PO SCH (21:00)
[2021-08-19] MEDS ORDERED: CHOLECALCIFEROL 25 MCG (1000 IU) TABLET PO SCH (21:00)
[2021-08-19] MEDS ORDERED: MELATONIN 3 MG TABLET PO SCH (21:00)
[2021-08-20] MEDS ORDERED: ISOSORBIDE MONONITRATE ER 30 MG TAB.ER.24H PO SCH (09:00)
== END 2021-08-19 18:13 | disposition home or self-care (01) | DRG 190 ==
LOC: EC 18:35 → 6NMEDSUR 08-19 00:25 → 4SSUR 08-19 02:38 → 6NMEDSUR 08-19 03:23 → OBSVTOIN 08-19 13:51
PROVIDERS: ADMIT Family Medicine; ATTEND Family Medicine
DX: J44.1 Chronic obstructive pulmonary disease with (acute) exacerbation (principal); S72.001A Fracture of unspecified part of neck of right femur, initial encounter for closed fracture; C94.6 Myelodysplastic disease, not elsewhere classified; N17.9 Acute kidney failure, unspecified; D47.2 Monoclonal gammopathy; E78.00 Pure hypercholesterolemia, unspecified; D64.9 Anemia, unspecified; E78.5 Hyperlipidemia, unspecified; E86.0 Dehydration; F32.A Depression, unspecified; F41.9 Anxiety disorder, unspecified; H91.90 Unspecified hearing loss, unspecified ear; I12.9 Hypertensive chronic kidney disease with stage 1 through stage 4 chronic kidney disease, or unspecified chronic kidney disease; I25.10 Atherosclerotic heart disease of native coronary artery without angina pectoris; G47.33 Obstructive sleep apnea (adult) (pediatric); I25.2 Old myocardial infarction; J84.10 Pulmonary fibrosis, unspecified; N18.30 Chronic kidney disease, stage 3 unspecified; W19.XXXA Unspecified fall, initial encounter; Z79.899 Other long term (current) drug therapy; Z80.1 Family history of malignant neoplasm of trachea, bronchus and lung; Z80.8 Family history of malignant neoplasm of other organs or systems; Z85.46 Personal history of malignant neoplasm of prostate; Z85.828 Personal history of other malignant neoplasm of skin; Z90.49 Acquired absence of other specified parts of digestive tract; Z98.42 Cataract extraction status, left eye; Z98.41 Cataract extraction status, right eye; Z86.711 Personal history of pulmonary embolism; Z87.442 Personal history of urinary calculi; Z87.891 Personal history of nicotine dependence; Z92.3 Personal history of irradiation; Z88.8 Allergy status to other drugs, medicaments and biological substances; Z91.81 History of falling
CPT/HCPCS: 36415; 71046; 80053; 81001; 83605; 83735; 84100; 84484; 85025; 85610; 85730; 86850; 86900; 86901; 93005; 96361; 96374; 96375; 99285

== ENCOUNTER 2021-10-11 17:53 | Emergency (ER) | payer MEDICARE ==
[2021-10-11] MEDS ORDERED: MORPHINE SULFATE 2 MG/ML SYRINGE IVP STA (18:18)
[2021-10-11] MEDS ORDERED: SODIUM CHLORIDE 0.9% 1,000 ML IV STA (18:18)
[2021-10-11] MEDS ORDERED: ONDANSETRON 4 MG/2 ML VIAL IVP STA (18:18)
[2021-10-11] MEDS ORDERED: FAMOTIDINE 20 MG/2 ML VIAL IV STA (18:19)
--- NOTE | 2021-10-11 18:22 | ED ---
General Adult HPI - General Chief complaint: Abdominal Pain Stated complaint: Abd pain Time Seen by Provider: 10/11/21 17:57 Source: patient, EMS, RN notes reviewed Mode of arrival: EMS Limitations: no limitations - History of Present Illness Initial comments: Patient is a pleasant 81-year-old male presenting to the emergency Department with epigastric abdominal discomfort. Symptoms have been occurring for months. Patient had medication change however no improvement, may be a little bit worse. Discomfort is diffuse but mostly epigastric. No chest pain. No vomiting. - Related Data Home Medications Medication Instructions Recorded Confirmed Pantoprazole Sodium [Protonix] 40 mg PO DAILY 03/08/16 08/18/21 Vit C/E/Zn/Coppr/Lutein/Zeaxan 1 cap PO HS 12/12/18 08/18/21 [Preservision Areds 2 Softgel] calcium polycarbophiL [Fibercon] 625 mg PO HS 12/12/18 08/18/21 LORazepam [Ativan] 0.5 mg PO TID@0800,1500,2000 09/16/20 08/19/21 Sucralfate [Carafate] 1 gm PO AC-TID 07/16/21 08/18/21 carvediloL [Coreg*] 12.5 mg PO BID 07/16/21 08/18/21 lidocaine HCL [lidocaine HCL 5 ml MUCOUS MEM QID PRN 07/16/21 08/18/21 Viscous] Cholecalciferol [Vitamin D3 (25 25 mcg PO HS 08/18/21 08/18/21 Mcg = 1000 Iu)] Ergocalciferol (Vitamin D2) 1,250 mcg PO FR 08/18/21 08/18/21 [Drisdol (50,000 Iu)] Megestrol Acetate 800 mg PO DIRECTED 08/18/21 08/18/21 Super B Complex 1 tab PO HS 08/18/21 08/18/21 amLODIPine BESYLATE [Norvasc] 5 mg PO DAILY 08/18/21 08/18/21 Previous Rx's Medication Instructions Recorded Isosorbide Mononitrate ER [Imdur] 30 mg PO DAILY #30 tablet 07/18/21 Acetaminophen Tab [Tylenol] 650 mg PO Q6HR PRN tab 08/19/21 Escitalopram [Lexapro] 5 mg PO DAILY #30 tab 08/19/21 predniSONE 10 mg PO DIRECTED #30 tab 08/19/21 Allergies Allergy/AdvReac Type Severity Reaction Status Date / Time alprazolam [From Xanax] AdvReac Confusion Verified 08/19/21 09:00 Review of Systems ROS Statement: Those systems with pertinent positive or pertinent negative responses have been documented in the HPI. ROS Other: All systems not noted in ROS Statement are negative. Constitutional: Denies: fever Eyes: Denies: eye pain ENT: Denies: ear pain Respiratory: Denies: cough Cardiovascular: Denies: chest pain Endocrine: Denies: fatigue Gastrointestinal: Reports: as per HPI, abdominal pain. Denies: vomiting Genitourinary: Denies: dysuria Musculoskeletal: Denies: back pain Skin: Denies: rash Neurological: Denies: weakness Past Medical History Past Medical History: Cancer, Chest Pain / Angina, COPD, GERD/Reflux, Hearing Disorder / Deafness, Hyperlipidemia, Hypertension, Myocardial Infarction (HI), Osteoarthritis (OA), Prostate Disorder, Pulmonary Embolus (PE) Additional Past Medical History / Comment(s): Interstitial lung disease, pulmonary fibrosis, PE in 2011-pt cannot recall laterality, past home O2 use but none now, RIANA-cannot tolerate Cpap, prostate cancer with radiation treatment, skin cancer with removals, nephrolithiasis, migraines, compression fracture low back, bilateral elbow fractures with surgery, PUD, jaundiced as a child, [place] bilaterally. "mild" HI in january 2020. Last Myocardial Infarction Date:: January 2020 History of Any Multi-Drug Resistant Organisms: None Reported Past Surgical History: Appendectomy, Cholecystectomy, Heart Catheterization, Heart Catheterization With Stent, Hernia Repair, Joint Replacement, Orthopedic Surgery Additional Past Surgical History / Comment(s): Prostate biopsy, L hand partial amp of 2 fingers, L knee ACL repair, R knee arthroscopy, bilateral total elbow replacements per pt, bilateral cataract removals, L inguinal hernia repair, cardiac caths x 2, EGD, colonoscopy, skin cancer removals. Past Anesthesia/Blood Transfusion Reactions: No Reported Reaction Date of Last Stent Placement:: January 2020. Past Psychological History: Anxiety, Depression Smoking Status: Former smoker Past Alcohol Use History: None Reported Past Drug Use History: None Reported - Past Family History Brother(s) Family Medical History: Cancer Additional Family Medical History / Comment(s): ONE BROTHER HAD LUNG CA & AN OTHER HAD MELANOMA. Brother just recently last week. Mother Family Medical History: AICD/Pacemaker Father Family Medical History: No Reported History Sister(s) Family Medical History: No Reported History General Exam Limitations: no limitations General appearance: alert, in no apparent distress Head exam: Present: normocephalic Eye exam: Present: normal appearance Neck exam: Present: normal inspection Respiratory exam: Present: normal lung sounds bilaterally Cardiovascular Exam: Present: regular rate, normal rhythm Expanded Peripheral pulses: 2+: Posterior Tibialis (R), Posterior Tibialis (L) GI/Abdominal exam: Present: soft, tenderness (Moderate epigastric tenderness to palpation. Mild diffuse tenderness.), normal bowel sounds. Absent: distended, guarding, rebound, rigid, pulsatile mass Extremities exam: Present: normal inspection. Absent: pedal edema, calf tenderness Neurological exam: Present: alert Psychiatric exam: Present: normal affect, normal mood Skin exam: Present: normal color Course Vital Signs 10/11/21 10/11/21 17:54 21:16 Temperature 97.8 F Pulse Rate 87 82 Respiratory 16 18 Rate Blood Pressure 195/94 161/77 O2 Sat by Pulse 95 93 L Oximetry EKG Findings - EKG Comments: EKG Findings:: Sinus rhythm with rate of 88. WA 162. QRS 95. QT 341. QTc 386. Normal axis. Normal QRS. No acute ST change. Medical Decision Making - Medical Decision Making Patient reevaluated and resting comfortably in bed. Abdomen nontender. Patient is still having some symptoms and receptive to GI cocktail. Case was discussed with Dr. Hays who is somewhat familiar with this patient and states he will follow up with patient tomorrow. Patient updated. - Lab Data Result diagrams: 10/11/21 18:45 10/11/21 18:45 Lab Results 10/11/21 10/11/21 10/11/21 Range/Units 18:45 18:45 18:45 WBC 6.7 (3.8-10.6) k/uL RBC 3.84 L (4.30-5.90) m/uL Hgb 10.5 L (13.0-17.5) gm/dL Hct 31.7 L (39.0-53.0) % MCV 82.5 (80.0-100.0) fL MCH 27.2 (25.0-35.0) pg MCHC 33.0 (31.0-37.0) g/dL RDW 21.0 H (11.5-15.5) % MPV 11.7 Neutrophils % Not Reportable Lymphocytes % Not Reportable Monocytes % Not Reportable Eosinophils % Not Reportable Basophils % Not Reportable Neutrophils # Not Reportable Lymphocytes # Not Reportable Monocytes # Not Reportable Eosinophils # Not Reportable Basophils # Not Reportable Hypochromasia Slight Poikilocytosis Slight Anisocytosis Moderate Microcytosis Slight PT 11.3 (9.0-12.0) sec INR 1.0 (<1.2) APTT 23.1 (22.0-30.0) sec Sodium 140 (137-145) mmol/L Potassium 4.0 (3.5-5.1) mmol/L Chloride 107 (98-107) mmol/L Carbon Dioxide 27 (22-30) mmol/L Anion Gap 6 mmol/L BUN 32 H (9-20) mg/dL Creatinine 2.04 H (0.66-1.25) mg/dL Est GFR (CKD-EPI)AfAm 35 (>60 ml/min/1.73 sqM) Est GFR (CKD-EPI)NonAf 30 (>60 ml/min/1.73 sqM) Glucose 96 (74-99) mg/dL Calcium 8.9 (8.4-10.2) mg/dL Total Bilirubin 1.4 H (0.2-1.3) mg/dL AST 33 (17-59) U/L ALT 25 (4-49) U/L Alkaline Phosphatase 133 H (38-126) U/L Total Protein 6.6 (6.3-8.2) g/dL Albumin 4.2 (3.5-5.0) g/dL Amylase 84 (30-110) U/L Lipase 93 (23-300) U/L Urine Color Urine Appearance (Clear) Urine pH (5.0-8.0) Ur Specific [place] (1.001-1.035) Urine Protein (Negative) Urine Glucose (UA) (Negative) Urine Ketones (Negative) Urine Blood (Negative) Urine Nitrite (Negative) Urine Bilirubin (Negative) Urine Urobilinogen (<2.0) mg/dL Ur Leukocyte Esterase (Negative) Urine WBC (0-5) /hpf 06/28/22 Range/Units 19:35 WBC (3.8-10.6) k/uL RBC (4.30-5.90) m/uL Hgb (13.0-17.5) gm/dL Hct (39.0-53.0) % MCV (80.0-100.0) fL MCH (25.0-35.0) pg MCHC (31.0-37.0) g/dL RDW (11.5-15.5) % MPV Neutrophils % Lymphocytes % Monocytes % Eosinophils % Basophils % Neutrophils # Lymphocytes # Monocytes # Eosinophils # Basophils # Hypochromasia Poikilocytosis Anisocytosis Microcytosis PT (9.0-12.0) sec INR (<1.2) APTT (22.0-30.0) sec Sodium (137-145) mmol/L Potassium (3.5-5.1) mmol/L Chloride (98-107) mmol/L Carbon Dioxide (22-30) mmol/L Anion Gap mmol/L BUN (9-20) mg/dL Creatinine (0.66-1.25) mg/dL Est GFR (CKD-EPI)AfAm (>60 ml/min/1.73 sqM) Est GFR (CKD-EPI)NonAf (>60 ml/min/1.73 sqM) Glucose (74-99) mg/dL Calcium (8.4-10.2) mg/dL Total Bilirubin (0.2-1.3) mg/dL AST (17-59) U/L ALT (4-49) U/L Alkaline Phosphatase (38-126) U/L Total Protein (6.3-8.2) g/dL Albumin (3.5-5.0) g/dL Amylase (30-110) U/L Lipase (23-300) U/L Urine Color Light Yellow Urine Appearance Clear (Clear) Urine pH 7.5 (5.0-8.0) Ur Specific [place] 1.011 (1.001-1.035) Urine Protein 1+ H (Negative) Urine Glucose (UA) Negative (Negative) Urine Ketones Negative (Negative) Urine Blood Negative (Negative) Urine Nitrite Negative (Negative) Urine Bilirubin Negative (Negative) Urine Urobilinogen <2.0 (<2.0) mg/dL Ur Leukocyte Esterase Negative (Negative) Urine WBC 1 (0-5) /hpf - Radiology Data Radiology results: report reviewed (Computed tomography scan of abdomen and pelvis shows nonobstructing bilateral renal calculi similar to previous. Mild lower abdominal aortic aneurysm slightly increased from prior. Moderate splenomegaly without change.) Disposition Clinical Impression: Abdominal pain Disposition: HOME SELF-CARE Condition: Stable Instructions (If sedation given, give patient instructions): Abdominal Pain (ED) Additional Instructions: Please follow-up tomorrow with Dr. Burdick or Dr. Hays, call first thing in the morning. Return for increased pain, vomiting, fever, worsening or changing symptoms or other concerns. Is patient prescribed a controlled substance at d/c from ED?: No Referrals: Barrington Goyal Jr, [Primary Care Provider] - 1-2 days Time of Disposition: 21:47
[2021-10-11 18:59] LABS: Albumin 4.2 g/dL (3.5-5.0); Calcium 8.9 mg/dL (8.4-10.2); Total Bilirubin 1.4 mg/dL (0.2-1.3); Total Protein 6.6 g/dL (6.3-8.2)
[2021-10-11 19:07] LABS: Partial Thromboplastin Time 23.1 sec (22.0-30.0); Prothrombin Time 11.3 sec (9.0-12.0)
[2021-10-11 19:54] LABS: Appearance,Urine Clear (Clear); Bilirubin,Urine Negative (Negative); Blood,Urine Negative (Negative); Color,Urine Light Yellow; Glucose,Urine (UA) Negative (Negative); Ketones,Urine Negative (Negative); Leukocyte Esterase,Urine Negative (Negative); Nitrite,Urine Negative (Negative); PH, Urine 7.5 (5.0-8.0); Protein,Urine 1+ (Negative); Specific Gravity,Urine 1.011 (1.001-1.035); Urobilinogen,Urine <2.0 mg/dL (<2.0); WBC,Urine 1 /hpf (0-5)
[2021-10-11 19:55] LABS: Anisocytosis Moderate; HCT 31.7 % (39.0-53.0); HGB 10.5 gm/dL (13.0-17.5); Hypochromasia Slight; MCH 27.2 pg (25.0-35.0); MCV 82.5 fL (80.0-100.0); Mean Platelet Volume 11.7; Microcytosis Slight; Platelet Count 152 k/uL (150-450); Poikilocytosis Slight; RBC 3.84 m/uL (4.30-5.90)
--- NOTE | 2021-10-11 20:52 | CT ---
EXAMINATION TYPE: CT abdomen pelvis wo con DATE OF EXAM: 10/11/2021 COMPARISON: 08/08/2021 HISTORY: abdominal pain CT DLP: 640.5 mGycm Automated exposure control for dose reduction was used. Lung bases are clear of infiltrate. No pleural effusion. Heart size is normal. No pericardial effusio n. Liver is intact. The spleen is enlarged and measures 21 cm per stomach is intact with no sign of p ancreatic mass. The bile ducts are not dilated. There are clips from cholecystectomy. There is 3.3 cm aneurysm of the lower abdominal aorta. No retroperitoneal adenopathy. There is no adr enal mass. Right kidney is smaller than the left. There are bilateral renal calculi up to 6 mm. No hy dronephrosis. No lumbar paraspinal mass. The bladder distends smoothly. There is right hip prosthesis . No free fluid in the pelvis. No inguinal hernia. There is previous bilateral pelvic surgery. There is no evidence of ascites or free air. No bowel obstruction. There are spondylotic changes in the lumbar spine with disc space narrowing from L2 to L5 and vacuum disks. No significant compression deformity. There is L2-3 mild retrolisthesis. There is right hip pr osthesis. The left hip appears intact. IMPRESSION: Nonobstructing bilateral renal calculi similar to old exam. Right renal atrophy. Mild lower abdominal aortic aneurysm slightly increased compared to old exam. Moderate splenomegaly w ithout change.
[2021-10-11 21:11] LABS: Band Neutrophils % 3 %; Metamyelocytes # (M) 0.13 k/uL (0); Metamyelocytes % 2 %; Myelocytes # (M) 0.13 k/uL (0); Myelocytes % 2 %; Nucleated Red Blood Cells 7 /100 WBC (0-0); Total Cells Counted 200
[2021-10-11 21:12] LABS: Basophils # (M) 0.06 k/uL (0-0.2); Eosinophils # (M) 0.06 k/uL (0-0.7); Lymphocytes # (M) 1.07 k/uL (1.0-4.8); Monocytes # (M) 0.25 k/uL (0-1.0); WBC 6.3 k/uL (3.8-10.6)
[2021-10-11 21:17] VITALS: RESP 18
[2021-10-11] MEDS ORDERED: MAG HYDROX/AL HYDROX/SIMETH 30 ML, HYOSCYAMINE ELIXIR 10 ML, LIDOCAINE VISCOUS 2% 10 ML PO STA ×3 (21:28)
[2021-10-11] MEDS ORDERED: LORazepam 1 MG TAB PO STA (21:45)
[2021-10-11 21:48] LABS: Neutrophils % (M) 70 %; Promyelocytes # (M) 0.06 k/uL (0); Promyelocytes % 1 %
[2021-10-11 21:49] LABS: Blast Cells # (M) 0.06 k/uL (0); Large Platelets Present; Ovalocytes Present
[2021-10-11 22:27] VITALS: BP 168/87; PULSE 94; TEMP 97
== END 2021-10-11 22:34 | disposition home or self-care (01) ==
LOC: EC 17:53
DX: R10.9 Unspecified abdominal pain (principal); K21.9 Gastro-esophageal reflux disease without esophagitis; E78.5 Hyperlipidemia, unspecified; I10 Essential (primary) hypertension; I25.2 Old myocardial infarction; Z87.891 Personal history of nicotine dependence; Z79.83 Long term (current) use of bisphosphonates; Z88.8 Allergy status to other drugs, medicaments and biological substances
CPT/HCPCS: 36415; 93005; 80053; 82150; 83690; 85025; 85610; 85730; 81001; 74176; 99284; 96374; 96375; 96361; J2405; J2270

== ENCOUNTER 2021-10-16 00:58 | Inpatient (IN) | payer MEDICARE ==
[2021-10-16] MEDS ORDERED: MORPHINE SULFATE 2 MG/ML SYRINGE IVP STA ×2 (01:47→03:08)
[2021-10-16] MEDS ORDERED: SODIUM CHLORIDE 0.9% 1,000 ML IV STA (01:47)
--- NOTE | 2021-10-16 02:32 | ED ---
Abdominal Pain HPI - General Source: patient, EMS, RN notes reviewed Mode of arrival: EMS - History of Present Illness MD Complaint: abdominal pain <Darlene Augustine - Last Filed: 10/16/21 22:42> <Parth Arndt - Last Filed: 10/18/21 03:07> - General Chief Complaint: Abdominal Pain Stated Complaint: Abd Pain Time Seen by Provider: 10/16/21 01:29 - History of Present Illness Initial Comments: This is an 81-year-old male who presents to the emergency department for abdominal pain. He was evaluated in the emergency department on 10/11 for several months of intermittent epigastric pain. Patient states that the pain has worsened since 10/11 and describes it as being in the center of his abdomen. Denies any associated nausea, vomiting, or changes in his bowel habits. Patient is noted to be coughing in the examination room, and his oxygen saturation dropped to 85%. He was subsequently placed on 2 L nasal cannula. Denies any fevers, chills, sore throat, dyspnea, chest pain, palpitations, nausea, vomiting, diarrhea, back pain, or headaches. (Darlene Augustine) - Related Data Home Medications Medication Instructions Recorded Confirmed Pantoprazole Sodium [Protonix] 40 mg PO DAILY 03/08/16 10/16/21 Vit C/E/Zn/Coppr/Lutein/Zeaxan 1 cap PO HS 12/12/18 10/16/21 [Preservision Areds 2 Softgel] Sucralfate [Carafate] 1 gm PO AC-TID 07/16/21 10/16/21 carvediloL [Coreg*] 12.5 mg PO BID 07/16/21 10/16/21 lidocaine HCL [lidocaine HCL 5 ml MUCOUS MEM QID PRN 07/16/21 10/16/21 Viscous] Cholecalciferol [Vitamin D3 (25 25 mcg PO HS 08/18/21 10/16/21 Mcg = 1000 Iu)] Ergocalciferol (Vitamin D2) 1,250 mcg PO FR 08/18/21 10/16/21 [Drisdol (50,000 Iu)] Super B Complex 1 tab PO HS 08/18/21 10/16/21 Dicyclomine HCl 10 mg PO Q8H PRN 10/16/21 10/16/21 Diphenoxylate HCl/Atropine 1 tab PO DAILY 10/16/21 10/16/21 [Lomotil 2.5-0.025 mg Tablet] LORazepam [Ativan] 0.5 mg PO TID 10/16/21 10/16/21 Lansoprazole [Prevacid 24Hr] 15 mg PO DAILY 10/16/21 10/16/21 Ruxolitinib Phosphate [Jakafi] 5 mg PO BID 10/16/21 10/16/21 amLODIPine [Norvasc] 5 mg PO DAILY 10/16/21 10/16/21 hydrALAZINE HCL [Apresoline] 10 mg PO TID-W/MEALS 10/16/21 10/16/21 Previous Rx's Medication Instructions Recorded Isosorbide Mononitrate ER [Imdur] 30 mg PO DAILY #30 tablet 07/18/21 Acetaminophen Tab [Tylenol] 650 mg PO Q6HR PRN tab 08/19/21 Allergies Allergy/AdvReac Type Severity Reaction Status Date / Time alprazolam [From Xanax] AdvReac Confusion Verified 10/16/21 01:08 Review of Systems ROS Other: All systems not noted in ROS Statement are negative. <Darlene Augustine - Last Filed: 10/16/21 22:42> ROS Other: All systems not noted in ROS Statement are negative. <Parth Arndt - Last Filed: 10/18/21 03:07> ROS Statement: Those systems with pertinent positive or pertinent negative responses have been documented in the HPI. Past Medical History Past Medical History: Cancer, Chest Pain / Angina, COPD, GERD/Reflux, Hearing Disorder / Deafness, Hyperlipidemia, Hypertension, Myocardial Infarction ([place]), Osteoarthritis (OA), Prostate Disorder, Pulmonary Embolus (PE) Additional Past Medical History / Comment(s): Interstitial lung disease, pulmonary fibrosis, PE in 2012-pt cannot recall laterality, past home O2 use but none now, RIANA-cannot tolerate Cpap, prostate cancer with radiation treatment, skin cancer with removals, nephrolithiasis, migraines, compression fracture low back, bilateral elbow fractures with surgery, PUD, jaundiced as a child, [place] bilaterally. "mild" [place] in january 2020. Last Myocardial Infarction Date:: January 2020 History of Any Multi-Drug Resistant Organisms: None Reported Past Surgical History: Appendectomy, Cholecystectomy, Heart Catheterization, Heart Catheterization With Stent, Hernia Repair, Joint Replacement, Orthopedic Surgery Additional Past Surgical History / Comment(s): Prostate biopsy, L hand partial amp of 2 fingers, L knee ACL repair, R knee arthroscopy, bilateral total elbow replacements per pt, bilateral cataract removals, L inguinal hernia repair, cardiac caths x 2, EGD, colonoscopy, skin cancer removals. Past Anesthesia/Blood Transfusion Reactions: No Reported Reaction Date of Last Stent Placement:: January 2020. Past Psychological History: Anxiety, Depression Smoking Status: Former smoker Past Alcohol Use History: None Reported Past Drug Use History: None Reported - Past Family History Brother(s) Family Medical History: Cancer Additional Family Medical History / Comment(s): ONE BROTHER HAD LUNG CA & ANOTHER HAD MELANOMA. Brother just recently last week. Mother Family Medical History: AICD/Pacemaker Father Family Medical History: No Reported History Sister(s) Family Medical History: No Reported History <Darlene Augustine - Last Filed: 10/16/21 22:42> General Exam General appearance: alert, in distress Head exam: Present: atraumatic, normocephalic, normal inspection Neck exam: Present: normal inspection. Absent: tenderness, meningismus, lymphadenopathy Respiratory exam: Present: normal lung sounds bilaterally. Absent: respiratory distress, wheezes, rales, rhonchi, stridor Cardiovascular Exam: Present: regular rate, normal rhythm, normal heart sounds. Absent: systolic murmur, diastolic murmur, rubs, gallop, clicks GI/Abdominal exam: Present: soft, tenderness (Periumbilical), normal bowel sounds. Absent: distended, guarding, rebound, rigid Neurological exam: Present: alert, oriented X3, CN II-XII intact Psychiatric exam: Present: normal affect, normal mood Skin exam: Present: warm, dry, intact, normal color. Absent: rash <Darlene Augustine - Last Filed: 10/16/21 22:42> Course Vital Signs 10/16/21 10/16/21 10/16/21 01:06 02:08 02:14 Temperature 98 F Pulse Rate 108 H 102 H Respiratory 20 24 22 Rate Blood Pressure 183/104 181/76 O2 Sat by Pulse 92 L 93 L Oximetry 10/16/21 03:08 Temperature Pulse Rate 107 H Respiratory 22 Rate Blood Pressure 162/62 O2 Sat by Pulse 94 L Oximetry Medical Decision Making - Lab Data Result diagrams: 10/16/21 01:57 10/16/21 01:57 - Radiology Data Radiology results: report reviewed, image reviewed <Darlene Augustine - Last Filed: 10/16/21 22:42> - Lab Data Result diagrams: 10/17/21 08:09 10/17/21 08:09 <Parth Arndt - Last Filed: 10/18/21 03:07> - Medical Decision Making This is an 81-year-old male who presents to the emergency department for abdominal pain. Imaging from 10/11 revealed no acute intra-abdominal process. Lab work reveals an elevated troponin and his bilirubin is elevated from baseline. Given the patient's low oxygen saturation and coughing, chest x-ray and COVID/influenza testing were obtained. COVID/influenza testing were negative. Case signed out to ED attending Dr. Devries. (Darlene Augustine) - Lab Data Lab Results 10/16/21 10/16/21 10/16/21 Range/Units 01:57 01:57 01:57 WBC 5.2 (3.8-10.6) k/uL RBC 3.80 L (4.30-5.90) m/uL Hgb 10.4 L (13.0-17.5) gm/dL Hct 30.7 L (39.0-53.0) % MCV 80.7 (80.0-100.0) fL MCH 27.5 (25.0-35.0) pg MCHC 34.0 (31.0-37.0) g/dL RDW 20.9 H (11.5-15.5) % Plt Count 154 (150-450) k/uL MPV 10.9 Neutrophils % (Manual) 77 % Band Neuts % (Manual) 3 % Lymphocytes % (Manual) 17 % Monocytes % (Manual) 4 % Eosinophils % (Manual) 1 % Neutrophils # (Manual) 4.10 (1.3-7.7) k/uL Lymphocytes # (Manual) 0.88 L (1.0-4.8) k/uL Monocytes # (Manual) 0.21 (0-1.0) k/uL Eosinophils # (Manual) 0.05 (0-0.7) k/uL Nucleated RBCs 9 H (0-0) /100 WBC Manual Slide Review Performed Large Platelets Present Polychromasia Present Hypochromasia Slight Poikilocytosis Moderate Anisocytosis Moderate Microcytosis Slight Sodium 138 (137-145) mmol/L Potassium 3.9 (3.5-5.1) mmol/L Chloride 106 (98-107) mmol/L Carbon Dioxide 24 (22-30) mmol/L Anion Gap 8 mmol/L BUN 29 H (9-20) mg/dL Creatinine 2.13 H (0.66-1.25) mg/dL Est GFR (CKD-EPI)AfAm 33 (>60 ml/min/1.73 sqM) Est GFR (CKD-EPI)NonAf 28 (>60 ml/min/1.73 sqM) Glucose 106 H (74-99) mg/dL Calcium 8.5 (8.4-10.2) mg/dL Total Bilirubin 4.3 H (0.2-1.3) mg/dL AST 37 (17-59) U/L ALT 24 (4-49) U/L Alkaline Phosphatase 142 H (38-126) U/L Troponin I (0.000-0.034) ng/mL Total Protein 6.5 (6.3-8.2) g/dL Albumin 4.2 (3.5-5.0) g/dL Amylase 68 (30-110) U/L Lipase 59 (23-300) U/L Urine Color Light Yellow Urine Appearance Clear (Clear) Urine pH 7.5 (5.0-8.0) Ur Specific [place] 1.009 (1.001-1.035) Urine Protein 1+ H (Negative) Urine Glucose (UA) Negative (Negative) Urine Ketones Negative (Negative) Urine Blood Negative (Negative) Urine Nitrite Negative (Negative) Urine Bilirubin Negative (Negative) Urine Urobilinogen <2.0 (<2.0) mg/dL Ur Leukocyte Esterase Negative (Negative) Urine RBC <1 (0-5) /hpf Urine WBC 1 (0-5) /hpf Coronavirus (PCR) (Not Detectd) Influenza Type A RNA (Not Detectd) Influenza Type B (PCR) (Not Detectd) 10/16/21 10/16/21 10/16/21 Range/Units 01:57 02:10 02:10 WBC (3.8-10.6) k/uL RBC (4.30-5.90) m/uL Hgb (13.0-17.5) gm/dL Hct (39.0-53.0) % MCV (80.0-100.0) fL MCH (25.0-35.0) pg MCHC (31.0-37.0) g/dL RDW (11.5-15.5) % Plt Count (150-450) k/uL MPV Neutrophils % (Manual) % Band Neuts % (Manual) % Lymphocytes % (Manual) % Monocytes % (Manual) % Eosinophils % (Manual) % Neutrophils # (Manual) (1.3-7.7) k/uL Lymphocytes # (Manual) (1.0-4.8) k/uL Monocytes # (Manual) (0-1.0) k/uL Eosinophils # (Manual) (0-0.7) k/uL Nucleated RBCs (0-0) /100 WBC Manual Slide Review Large Platelets Polychromasia Hypochromasia Poikilocytosis Anisocytosis Microcytosis Sodium (137-145) mmol/L Potassium (3.5-5.1) mmol/L Chloride (98-107) mmol/L Carbon Dioxide (22-30) mmol/L Anion Gap mmol/L BUN (9-20) mg/dL Creatinine (0.66-1.25) mg/dL Est GFR (CKD-EPI)AfAm (>60 ml/min/1.73 sqM) Est GFR (CKD-EPI)NonAf (>60 ml/min/1.73 sqM) Glucose (74-99) mg/dL Calcium (8.4-10.2) mg/dL Total Bilirubin (0.2-1.3) mg/dL AST (17-59) U/L ALT (4-49) U/L Alkaline Phosphatase (38-126) U/L Troponin I 0.053 H* (0.000-0.034) ng/mL Total Protein (6.3-8.2) g/dL Albumin (3.5-5.0) g/dL Amylase (30-110) U/L Lipase (23-300) U/L Urine Color Urine Appearance (Clear) Urine pH (5.0-8.0) Ur Specific [place] (1.001-1.035) Urine Protein (Negative) Urine Glucose (UA) (Negative) Urine Ketones (Negative) Urine Blood (Negative) Urine Nitrite (Negative) Urine Bilirubin (Negative) Urine Urobilinogen (<2.0) mg/dL Ur Leukocyte Esterase (Negative) Urine RBC (0-5) /hpf Urine WBC (0-5) /hpf Coronavirus (PCR) Not Detected (Not Detectd) Influenza Type A RNA Not Detected (Not Detectd) Influenza Type B (PCR) Not Detected (Not Detectd) - EKG Data EKG Comments: Sinus tachycardia. Ventricular rate 102 bpm, ND interval 133 ms, QRS duration 90 ms, QTC 366 ms. (Darlene Augustine) Disposition <Darlene Augustine - Last Filed: 10/16/21 22:42> <Parth Arndt - Last Filed: 10/18/21 03:07> Clinical Impression: Abdominal pain, Elevated troponin Disposition: ADMITTED IP TO THIS HOSP
[2021-10-16 02:36] LABS: Albumin 4.2 g/dL (3.5-5.0); Calcium 8.5 mg/dL (8.4-10.2); Potassium 3.9 mmol/L (3.5-5.1); Total Bilirubin 4.3 mg/dL (0.2-1.3); Total Protein 6.5 g/dL (6.3-8.2)
[2021-10-16 02:39] LABS: Appearance,Urine Clear (Clear); Bilirubin,Urine Negative (Negative); Blood,Urine Negative (Negative); Color,Urine Light Yellow; Glucose,Urine (UA) Negative (Negative); Ketones,Urine Negative (Negative); Leukocyte Esterase,Urine Negative (Negative); Nitrite,Urine Negative (Negative); PH, Urine 7.5 (5.0-8.0); Protein,Urine 1+ (Negative); RBC,Urine <1 /hpf (0-5); Specific Gravity,Urine 1.009 (1.001-1.035); Urobilinogen,Urine <2.0 mg/dL (<2.0); WBC,Urine 1 /hpf (0-5)
[2021-10-16 02:50] LABS: Anisocytosis Moderate; HCT 30.7 % (39.0-53.0); HGB 10.4 gm/dL (13.0-17.5); Hypochromasia Slight; MCH 27.5 pg (25.0-35.0); MCV 80.7 fL (80.0-100.0); Mean Platelet Volume 10.9; Microcytosis Slight; Platelet Count 154 k/uL (150-450); Poikilocytosis Moderate; RDW 20.9 % (11.5-15.5)
[2021-10-16 03:40] LABS: Band Neutrophils % 3 %; Neutrophils % (M) 77 %; Nucleated Red Blood Cells 9 /100 WBC (0-0); Total Cells Counted 200
[2021-10-16 03:41] LABS: Eosinophils # (M) 0.05 k/uL (0-0.7); Large Platelets Present; Lymphocytes # (M) 0.88 k/uL (1.0-4.8); Monocytes # (M) 0.21 k/uL (0-1.0); Polychromasia Present; WBC 5.2 k/uL (3.8-10.6)
[2021-10-16] MEDS ORDERED: NITROGLYCERIN SL TABS 0.4 MG TAB SUBLINGUAL PRN (03:46)
--- NOTE | 2021-10-16 03:52 | XR ---
EXAM: XR Chest, 2 Views CLINICAL HISTORY: ITS.REASON XR Reason: Cough, low oxygen saturation TECHNIQUE: Frontal and lateral views of the chest. COMPARISON: No relevant prior studies available. FINDINGS: Lungs: Left basilar opacity. Pleural space: No effusion. Heart: No cardiomegaly. Bones/joints: No acute findings. IMPRESSION: Left basilar opacity.
[2021-10-16] MEDS ORDERED: MAG HYDROX/AL HYDROX/SIMETH 30 ML, HYOSCYAMINE ELIXIR 10 ML, LIDOCAINE VISCOUS 2% 10 ML PO ONE ×3 (04:13)
[2021-10-16] MEDS ORDERED: MORPHINE SULFATE 4 MG/ML SYRINGE IV PRN (04:14)
[2021-10-16] MEDS ORDERED: LORazepam 1 MG TAB PO SCH (08:00)
[2021-10-16] MEDS ORDERED: ISOSORBIDE MONONITRATE ER 30 MG TAB.ER.24H PO SCH (09:00)
[2021-10-16] MEDS ORDERED: ESCITALOPRAM 5 MG TAB PO SCH (09:00)
[2021-10-16] MEDS: amLODIPine 5 MG TAB PO SCH (09:14)
[2021-10-16] MEDS: carvediloL 12.5 MG TAB PO SCH ×2 (09:14→21:28)
[2021-10-16] MEDS: PANTOPRAZOLE 40 MG TABLET PO SCH (09:14)
[2021-10-16] MEDS: SUCRALFATE 1 GM TAB PO SCH ×3 (09:14→17:30)
--- NOTE | 2021-10-16 12:42 | P.CRDCN ---
History of Present Illness Consult date: 10/16/21 History of present illness: History of Present Illness: The patient is an 81-year-old male with a known history of CAD who presents with symptoms of severe abdominal discomfort and nausea. He has a known history of CAD, post stenting of the LAD [place] [address] Ricci. He has been under increased amount of stress after the of his in May. He has been co mplaining of abdominal discomfort, increasing in severity with nausea and vomiting, has been evaluated by Dr. Arceo the past. He has dyspnea on exertion but no change, he denies any dizziness, palpitations or syncope. In the past he had a normal systolic function and has underwent a dobutamine stress test in July of this year that showed no evidence of inducible ischemia. On presentation his troponin is mildly elevated. His activity is limited but stable. Patient could not tolerate in the past any antiplatelets regimen including aspirin because of severe abdominal discomfort. He has a known history of chronic kidney disease. His corneas factors are positive for hypertension, hyperlipidemia, he is a nondiabetic Medications: Hydralazine 10 mg 3 times a day, Carafate, isosorbide mononitrate 30 mg daily, Coreg 12-1/2 mg twice a day, amlodipine 5 mg daily. Review of Systems: Respiratory: He has chronic dyspnea on exertion but no recent wheezing GI: He has abdominal discomfort with nausea, no recent GI bleeding : No hematuria or dysuria. Nervous System: No stroke or seizure. Physical Examination: 81-year-old male, alert oriented no apparent distress,Blood pressure 111/52, He art rate 81 Head: Normocephalic. Eyes: Sclerae nonicteric. Neck: Good carotid upstroke, no bruit, no jugular venous distention. Lungs: Clear to auscultation. Heart: Regular rate and rhythm, S1-S2, no S3, no rub. Systolic ejection murmur. Abdomen: Soft, epigastric and left upper quadrant tenderness, positive bowel sounds, splenomegaly. Extremities: No edema, intact distal pulses. Labs: Potassium 3.9, BUN 29 and creatinine 2.13, troponin 0.053, 0.073, 0.098. Hemoglobin 10.4, white blood cell 5.2. Chest x-ray with left basilar opacity EKG: Sinus mechanism with nonspecific ST-T wave changes Impression: 1. Abdominal discomfort was reproducible epigastric pain, etiology unclear 2. Mild troponin elevation with no chest discomfort. Patient has no clear evidence by EKG or by symptoms to suggest acute cardiac syndrome. He has a known history of CAD and had no evidence of stress-induced ischemia on his dobutamine stress echocardiogram done in July. 3. Chronic kidney disease 4. Anemia 5. Inability to tolerate any antiplatelets 6. Recent episodes of depression and anxiety after the of his Plan: 1. Maximize medical therapy 2. Obtain an echocardiogram with Doppler 3. Workup of his epigastric discomfort 4. Repeat EKG morning 5. I would favor medical therapy in view of his prior workup and the inability to tolerate antiplatelets. 6. Depending on his progress further recommendations will be made 7. Thank you for this consult we will follow with you Past Medical History Past Medical History: Cancer, Chest Pain / Angina, COPD, GERD/Reflux, Hearing Disorder / Deafness, Hyperlipidemia, Hypertension, Myocardial Infarction ([place]), Osteoarthritis (OA), Prostate Disorder, Pulmonary Embolus (PE) Additional Past Medical History / Comment(s): Interstitial lung disease, pulmonary fibrosis, PE in 2011-pt cannot recall laterality, past home O2 use but none now, RIANA-cannot tolerate Cpap, prostate cancer with radiation treatment, skin cancer with removals, nephrolithiasis, migraines, compression fracture low back, bilateral elbow fractures with surgery, PUD, jaundiced as a child, [place] bilaterally. "mild" [place] in january 2020. Last Myocardial Infarction Date:: January 2020 History of Any Multi-Drug Resistant Organisms: None Reported Past Surgical History: Appendectomy, Cholecystectomy, Heart Catheterization, Heart Catheterization With Stent, Hernia Repair, Joint Replacement, Orthopedic Surgery Additional Past Surgical History / Comment(s): Prostate biopsy, L hand partial amp of 2 fingers, L knee ACL repair, R knee arthroscopy, bilateral total elbow replacements per pt, bilateral cataract removals, L inguinal hernia repair, cardiac caths x 2, EGD, colonoscopy, skin cancer removals. Past Anesthesia/Blood Transfusion Reactions: No Reported Reaction Date of Last Stent Placement:: January 2020 Past Psychological History: Anxiety, Depression Additional Psychological History / Comment(s): pt lost about a year ago Smoking Status: Former smoker Past Alcohol Use History: None Reported Additional Past Alcohol Use History / Comment(s): Pt started smoking in 1961 and quit in 2004. Past Drug Use History: None Reported - Past Family History Brother(s) Family Medical History: Cancer Additional Family Medical History / Comment(s): ONE BROTHER HAD LUNG CA & ANOTHER HAD MELANOMA. Brother just recently last week. Mother Family Medical History: AICD/Pacemaker Father Family Medical History: No Reported History Sister(s) Family Medical History: No Reported History Medications and Allergies Home Medications Medication Instructions Recorded Confirmed Type Pantoprazole Sodium [Protonix] 40 mg PO DAILY 03/08/16 10/16/21 History Vit C/E/Zn/Coppr/Lutein/Zeaxan 1 cap PO HS 12/12/18 10/16/21 History [Preservision Areds 2 Softgel] Sucralfate [Carafate] 1 gm PO AC-TID 07/16/21 10/16/21 History carvediloL [Coreg*] 12.5 mg PO BID 07/16/21 10/16/21 History lidocaine HCL [lidocaine HCL 5 ml MUCOUS MEM QID PRN 07/16/21 10/16/21 History Viscous] Isosorbide Mononitrate ER [Imdur] 30 mg PO DAILY #30 tablet 07/18/21 10/16/21 Rx Cholecalciferol [Vitamin D3 (25 25 mcg PO HS 08/18/21 10/16/21 History Mcg = 1000 Iu)] Ergocalciferol (Vitamin D2) 1,250 mcg PO FR 08/18/21 10/16/21 History [Drisdol (50,000 Iu)] Super B Complex 1 tab PO HS 08/18/21 10/16/21 History Acetaminophen Tab [Tylenol] 650 mg PO Q6HR PRN tab 08/19/21 10/16/21 Rx Dicyclomine HCl 10 mg PO Q8H PRN 10/16/21 10/16/21 History Diphenoxylate HCl/Atropine 1 tab PO DAILY 10/16/21 10/16/21 History [Lomotil 2.5-0.025 mg Tablet] LORazepam [Ativan] 0.5 mg PO TID 10/16/21 10/16/21 History Lansoprazole [Prevacid 24Hr] 15 mg PO DAILY 10/16/21 10/16/21 History Ruxolitinib Phosphate [Jakafi] 5 mg PO BID 10/16/21 10/16/21 History amLODIPine [Norvasc] 5 mg PO DAILY 10/16/21 10/16/21 History hydrALAZINE HCL [Apresoline] 10 mg PO TID-W/MEALS 10/16/21 10/16/21 History Allergies Allergy/AdvReac Type Severity Reaction Status Date / Time alprazolam [From Xanax] AdvReac Confusion Verified 10/16/21 01:08 Physical Exam Vitals: Vital Signs Temp Pulse Pulse Resp BP BP Pulse Ox 10/16/21 12:03 81 111/52 91 L 10/16/21 10:39 132/60 88 L 10/16/21 10:17 22 10/16/21 10:15 98.1 F 93 22 136/73 91 L 10/16/21 07:24 94 L 10/16/21 05:40 101 H 22 10/16/21 05:26 98.9 F 101 H 22 170/72 92 L 10/16/21 03:08 107 H 22 162/62 94 L 10/16/21 02:14 22 10/16/21 02:08 102 H 24 181/76 93 L 10/16/21 01:06 98 F 108 H 20 183/104 92 L Intake and Output 10/15/21 10/16/21 10/16/21 22:59 06:59 14:59 Output Total 120 Balance -120 Output: Urine 120 Other: Voiding Method Urinal Diaper # Voids 1 1 Weight 73.482 kg Results 10/16/21 01:57 10/16/21 01:57 Cardiac Enzymes 10/16/21 10/16/21 10/16/21 Range/Units 01:57 01:57 05:32 AST 37 (17-59) U/L Troponin I 0.053 H* 0.073 H* (0.000-0.034) ng/mL 10/16/21 Range/Units 08:53 AST (17-59) U/L Troponin I 0.098 H* (0.000-0.034) ng/mL CBC 10/16/21 Range/Units 01:57 WBC 5.2 (3.8-10.6) k/uL RBC 3.80 L (4.30-5.90) m/uL Hgb 10.4 L (13.0-17.5) gm/dL Hct 30.7 L (39.0-53.0) % Plt Count 154 (150-450) k/uL Comprehensive Metabolic Panel 10/16/21 Range/Units 01:57 Sodium 138 (137-145) mmol/L Potassium 3.9 (3.5-5.1) mmol/L Chloride 106 (98-107) mmol/L Carbon Dioxide 24 (22-30) mmol/L BUN 29 H (9-20) mg/dL Creatinine 2.13 H (0.66-1.25) mg/dL Glucose 106 H (74-99) mg/dL Calcium 8.5 (8.4-10.2) mg/dL AST 37 (17-59) U/L ALT 24 (4-49) U/L Alkaline Phosphatase 142 H (38-126) U/L Total Protein 6.5 (6.3-8.2) g/dL Albumin 4.2 (3.5-5.0) g/dL Current Medications Generic Name Dose Route Start Last Admin Trade Name Freq PRN Reason Stop Dose Admin Al Hydroxide/Mg Hydroxide 30 ml 10/16/21 11:18 Mag Hydrox/Al Hydrox/Simeth 30 Ml Cup PO Q4HR PRN GI Upset Amlodipine Besylate 5 mg 10/16/21 09:00 10/16/21 09:14 Amlodipine 5 Mg Tab PO 5 mg DAILY [facility] Administration Aspirin 81 mg 10/17/21 09:00 Aspirin 81 Mg PO DAILY [facility] Carvedilol 12.5 mg 10/16/21 09:00 10/16/21 09:14 Carvedilol 12.5 Mg Tab PO 12.5 mg BID JOSE MANUEL Administration Escitalopram Oxalate 5 mg 10/16/21 09:00 10/16/21 09:14 Escitalopram 5 Mg Tab PO 5 mg DAILY [facility] Administration Isosorbide Mononitrate 30 mg 10/16/21 09:00 10/16/21 09:14 Isosorbide Mononitrate Er 30 Mg Tab.Er.24h PO 30 mg DAILY [facility] Administration Morphine Sulfate 4 mg 10/16/21 04:14 10/16/21 10:48 Morphine Sulfate 4 Mg/Ml Syringe IV 4 mg Q3HR PRN Administration Pain Morphine Sulfate 2 mg 10/16/21 11:19 Morphine Sulfate 2 Mg/Ml Syringe IVP Q6HR PRN Moderate to Severe Pain Nitroglycerin 0.4 mg 10/16/21 03:46 Nitroglycerin Sl Tabs 0.4 Mg Tab SUBLINGUAL Q5M PRN Chest Pain Pantoprazole Sodium 40 mg 10/16/21 07:30 10/16/21 09:14 Pantoprazole 40 Mg Tablet PO 40 mg [id number] JOSE MANUEL Administration Sucralfate 1 gm 10/16/21 07:30 10/16/21 12:02 Sucralfate 1 Gm Tab PO 1 gm AC-TID JOSE MANUEL Administration Intake and Output 10/15/21 10/16/21 10/16/21 22:59 06:59 14:59 Output Total 120 Balance -120 Output: Urine 120 Other: Voiding Method Urinal Diaper # Voids 1 1 Weight 73.482 kg 10/16/21 01:57 10/16/21 01:57
[2021-10-16] MEDS ORDERED: ACETAMINOPHEN TAB 325 MG TAB PO PRN (14:42)
[2021-10-16] MEDS ORDERED: LIDOCAINE VISCOUS 2% 15 ML CUP MUCOUS MEM PRN (14:42)
--- NOTE | 2021-10-16 15:31 | P.HPIM ---
History of Present Illness H&P Date: 10/16/21 Chief Complaint: Abdominal pain 81-year-old male presented emergency room via EMS with complaints of abdominal pain. Patient was recently evaluated on 10/11/2021 for same symptoms[address] The CT was obtained at that time which showed nonobstructing bilateral renal calculi similar to all exam, right renal atrophy, mild lower abdominal aortic aneurysm slightly increased compared to all exam and moderate spinal megaly without change. Patient was discharged home at that time and since that time his symptoms have progressively worsened. Patient does have a cough and which he states started 2 days ago. In the emergency room his oxygen saturation did drop to 85% and was subsequently placed on 2 L nasal cannula. Currently the patient is on 3 L nasal cannula maintaining oxygen saturations of 92%. He does admit to intermittent periods of shortness of breath and chest pressure, but these mainly come when he has a "coughing jag". He denies any fevers, chills, sore throat, palpitations, back pain, headaches, nausea vomiting or diarrhea. The emergency room troponins were found to be slightly elevated and progressively have come down. Cardiology is consulted and have since ordered an echocardiogram. In July of this year the patient did have a dobutamine stress which revealed no evidence of inducible ischemia. Most recent set of vitals blood pressure 136/73, afebrile 98.1, pulse rate of 93, respiratory rate of 22. Initial blood work reveals a WBC count of 5.2, hemoglobin 10.64, hematocrit of 30.7, platelet count 154. Comprehensive reveals sodium 138, potassium 3.9, albumin of 29, creatinine 2.3, glucose 106, alk phos 142, troponin initially was 0.098 and on the final troponin was found to be 0.053. Urine was positive for 1+ protein. Covid and influenza were not detected. Review of Systems Constitutional: Reports fatigue Ears, nose, mouth and throat: Reports as per HPI Cardiovascular: Reports chest pain (Intermittent chest pressure), Reports shortn ess of breath (Intermittent) Respiratory: Reports congestion, Reports cough Gastrointestinal: Reports abdominal pain Genitourinary: Reports as per HPI Musculoskeletal: Reports as per HPI Integumentary: Reports as per HPI Neurological: Reports as per HPI Psychiatric: Reports as per HPI Endocrine: Reports as per HPI Hematologic/Lymphatic: Reports as per HPI Allergic/Immunologic: Reports as per HPI Past Medical History Past Medical History: Cancer, Chest Pain / Angina, COPD, GERD/Reflux, Hearing Disorder / Deafness, Hyperlipidemia, Hypertension, Myocardial Infarction (MA), Osteoarthritis (OA), Prostate Disorder, Pulmonary Embolus (PE) Additional Past Medical History / Comment(s): Interstitial lung disease, pulmonary fibrosis, PE in 2012-pt cannot recall laterality, past home O2 use but none now, RIANA-cannot tolerate Cpap, prostate cancer with radiation treatment, skin cancer with removals, nephrolithiasis, migraines, compression fracture low back, bilateral elbow fractures with surgery, PUD, jaundiced as a child, CREEK bilaterally. "mild" MA in january 2020. Last Myocardial Infarction Date:: January 2020 History of Any Multi-Drug Resistant Organisms: None Reported Past Surgical History: Appendectomy, Cholecystectomy, Heart Catheterization, Heart Catheterization With Stent, Hernia Repair, Joint Replacement, Orthopedic Surgery Additional Past Surgical History / Comment(s): Prostate biopsy, L hand partial amp of 2 fingers, L knee ACL repair, R knee arthroscopy, bilateral total elbow replacements per pt, bilateral cataract removals, L inguinal hernia repair, cardiac caths x 2, EGD, colonoscopy, skin cancer removals. Past Anesthesia/Blood Transfusion Reactions: No Reported Reaction Date of Last Stent Placement:: January 2020 Past Psychological History: Anxiety, Depression Additional Psychological History / Comment(s): pt lost about a year ago Smoking Status: Former smoker Past Alcohol Use History: None Reported Additional Past Alcohol Use History / Comment(s): Pt started smoking in 1961 and quit in 2004. Past Drug Use History: None Reported - Past Family History Brother(s) Family Medical History: Cancer Additional Family Medical History / Comment(s): ONE BROTHER HAD LUNG CA & ANOTHER HAD MELANOMA. Brother just recently last week. Mother Family Medical History: AICD/Pacemaker Father Family Medical History: No Reported History Sister(s) Family Medical History: No Reported History Medications and Allergies Home Medications Medication Instructions Recorded Confirmed Type Pantoprazole Sodium [Protonix] 40 mg PO DAILY 03/08/16 10/16/21 History Vit C/E/Zn/Coppr/Lutein/Zeaxan 1 cap PO HS 12/12/18 10/16/21 History [Preservision Areds 2 Softgel] Sucralfate [Carafate] 1 gm PO AC-TID 07/16/21 10/16/21 History carvediloL [Coreg*] 12.5 mg PO BID 07/16/21 10/16/21 History lidocaine HCL [lidocaine HCL 5 ml MUCOUS MEM QID PRN 07/16/21 10/16/21 History Viscous] Isosorbide Mononitrate ER [Imdur] 30 mg PO DAILY #30 tablet 07/18/21 10/16/21 Rx Cholecalciferol [Vitamin D3 (25 25 mcg PO HS 08/18/21 10/16/21 History Mcg = 1000 Iu)] Ergocalciferol (Vitamin D2) 1,250 mcg PO FR 08/18/21 10/16/21 History [Drisdol (50,000 Iu)] Super B Complex 1 tab PO HS 08/18/21 10/16/21 History Acetaminophen Tab [Tylenol] 650 mg PO Q6HR PRN tab 08/19/21 10/16/21 Rx Dicyclomine HCl 10 mg PO Q8H PRN 10/16/21 10/16/21 History Diphenoxylate HCl/Atropine 1 tab PO DAILY 10/16/21 10/16/21 History [Lomotil 2.5-0.025 mg Tablet] LORazepam [Ativan] 0.5 mg PO TID 10/16/21 10/16/21 History Lansoprazole [Prevacid 24Hr] 15 mg PO DAILY 10/16/21 10/16/21 History Ruxolitinib Phosphate [Jakafi] 5 mg PO BID 10/16/21 10/16/21 History amLODIPine [Norvasc] 5 mg PO DAILY 10/16/21 10/16/21 History hydrALAZINE HCL [Apresoline] 10 mg PO TID-W/MEALS 10/16/21 10/16/21 History Allergies Allergy/AdvReac Type Severity Reaction Status Date / Time alprazolam [From Xanax] AdvReac Confusion Verified 10/16/21 01:08 Physical Exam Vitals: Vital Signs Temp Pulse Pulse Resp BP BP Pulse Ox 10/16/21 12:03 81 111/52 91 L 10/16/21 10:39 132/60 88 L 10/16/21 10:17 22 10/16/21 10:15 98.1 F 93 22 136/73 91 L 10/16/21 07:24 94 L 10/16/21 05:40 101 H 22 10/16/21 05:26 98.9 F 101 H 22 170/72 92 L 10/16/21 03:08 107 H 22 162/62 94 L 10/16/21 02:14 22 10/16/21 02:08 102 H 24 181/76 93 L 10/16/21 01:06 98 F 108 H 20 183/104 92 L Intake and Output 10/16/21 10/16/21 10/16/21 06:59 14:59 22:59 Output Total 120 Balance -120 Output: Urine 120 Other: Voiding Method Urinal Diaper # Voids 1 1 Weight 73.482 kg GENERAL: 81-year-old elderly male, fatigued, well-nourished and in no acute distress. HEAD: Atraumatic, normocephalic. EYES: Pupils equal round and reactive to light, extraocular movements intact, sclera anicteric, conjunctiva are normal. ENT:nares patent, oropharynx clear without exudates. Moist mucous membranes. NECK: Normal range of motion, supple without lymphadenopathy or JVD, no thyromegaly LUNGS: Breath sounds clear to auscultation bilaterally and equal. No wheezes rales or rhonchi. Loose nonproductive cough during exam HEART: Regular rate and rhythm without murmurs, rubs or gallops.S1S2 Normal ABDOMEN: Soft, tenderness with palpation bilateral upper quadrants, normoactive bowel sounds. splenomegaly. No masses appreciated. EXTREMITIES: Normal range of motion, no pitting or edema. No clubbing or cyanosis. NEUROLOGICAL: Cranial nerves II through XII grossly intact. Normal speech, normal gait. PSYCH: Normal mood, normal affect. SKIN: Warm, Dry, tenting turgor, no rashes or lesions noted. Results CBC & Chem 7: 10/16/21 01:57 10/16/21 01:57 Labs: Abnormal Lab Results - Last 24 Hours (Table) 10/16/21 10/16/21 10/16/21 Range/Units 01:57 01:57 01:57 RBC 3.80 L (4.30-5.90) m/uL Hgb 10.4 L (13.0-17.5) gm/dL Hct 30.7 L (39.0-53.0) % RDW 20.9 H (11.5-15.5) % Lymphocytes # (Manual) 0.88 L (1.0-4.8) k/uL Nucleated RBCs 9 H (0-0) /100 WBC BUN 29 H (9-20) mg/dL Creatinine 2.13 H (0.66-1.25) mg/dL Glucose 106 H (74-99) mg/dL Total Bilirubin 4.3 H (0.2-1.3) mg/dL Alkaline Phosphatase 142 H (38-126) U/L Troponin I (0.000-0.034) ng/mL Urine Protein 1+ H (Negative) 10/16/21 10/16/21 10/16/21 Range/Units 01:57 05:32 08:53 RBC (4.30-5.90) m/uL Hgb (13.0-17.5) gm/dL Hct (39.0-53.0) % RDW (11.5-15.5) % Lymphocytes # (Manual) (1.0-4.8) k/uL Nucleated RBCs (0-0) /100 WBC BUN (9-20) mg/dL Creatinine (0.66-1.25) mg/dL Glucose (74-99) mg/dL Total Bilirubin (0.2-1.3) mg/dL Alkaline Phosphatase (38-126) U/L Troponin I 0.053 H* 0.073 H* 0.098 H* (0.000-0.034) ng/mL Urine Protein (Negative) Thrombosis Risk Factor Assmnt - Choose All That Apply Each Factor Represents 1 point: Abnormal pulmonary function (COPD) Other Risk Factors: Yes Each Risk Factor Represents 3 Points: Age 75 years or older Other congenital or acquired thrombophilia - If yes, enter type in comment: No Thrombosis Risk Factor Assessment Total Risk Factor Score: 4 Thrombosis Risk Factor Assessment Level: Moderate Risk Assessment and Plan (1) Abdominal pain Current Visit: No Status: Acute Code(s): R10.9 - UNSPECIFIED ABDOMINAL PAIN SNOMED Code(s): 06164178 (2) Acute dyspnea Current Visit: No Status: Acute Code(s): R06.00 - DYSPNEA, UNSPECIFIED SNOMED Code(s): 644943774 (3) CKD (chronic kidney disease), stage III Current Visit: No Status: Acute Code(s): N18.30 - CHRONIC KIDNEY DISEASE, STAGE 3 UNSPECIFIED SNOMED Code(s): 264946865 (4) COPD (chronic obstructive pulmonary disease) Current Visit: No Status: Acute Code(s): J44.9 - CHRONIC OBSTRUCTIVE PULMONARY DISEASE, UNSPECIFIED SNOMED Code(s): 06849813 (5) Anemia Current Visit: No Status: Acute Code(s): D64.9 - ANEMIA, UNSPECIFIED SNOMED Code(s): 267659108 (6) Elevated troponin Current Visit: No Status: Acute Code(s): R77.8 - OTHER SPECIFIED ABNORMALITIES OF PLASMA PROTEINS SNOMED Code(s): 295019504 (7) Cough Current Visit: Yes Status: Acute Code(s): R05.9 - COUGH, UNSPECIFIED SNOMED Code(s): 17409390 (8) Essential (primary) hypertension Current Visit: No Status: Acute Code(s): I10 - ESSENTIAL (PRIMARY) HYPERTENSION SNOMED Code(s): 83420341 (9) Anxiety Current Visit: No Status: Acute Code(s): F41.9 - ANXIETY DISORDER, UNSPECIFIED SNOMED Code(s): 28446804 (10) Interstitial lung disease Current Visit: No Status: Acute Code(s): J84.9 - INTERSTITIAL PULMONARY DISEASE, UNSPECIFIED SNOMED Code(s): 736236192 (11) Splenomegaly Current Visit: No Status: Chronic Priority: Medium Code(s): R16.1 - SPLENOMEGALY, NOT ELSEWHERE CLASSIFIED SNOMED Code(s): 93351195 Plan: 1. Continue medication regimen as prescribed 2. Consult for cardiology (have been notified and have examined patient) 3. Echocardiogram 4. We'll order labs for tomorrow 5. Diet is nothing by mouth may have sips of water with meds 6. We'll start normal saline at 75 mL per hour 7. Protonix for PPI prophylaxis 8. Morphine 2 mg every 6 hours for moderate to severe pain 9. We'll continue to monitor vitals and labs and treat accordingly 10. We'll reevaluate again tomorrow Time with Patient: Greater than 30
[2021-10-16] MEDS: SODIUM CHLORIDE 0.9% 1,000 ML IV SCH (16:02)
[2021-10-16] MEDS: hydrALAZINE HCL 10 MG TAB PO SCH (17:30)
[2021-10-16] MEDS: MORPHINE SULFATE 2 MG/ML SYRINGE IVP PRN (17:42)
[2021-10-16] MEDS: VIT A,C & E-LUTEIN-MINERALS 1 EACH TAB PO SCH (21:28)
[2021-10-16] MEDS: Ruxolitinib Phosphate [Jakafi] 5 MG Tablet PO SCH (21:29)
[2021-10-17] MEDS: MORPHINE SULFATE 2 MG/ML SYRINGE IVP PRN ×2 (03:01→09:11)
[2021-10-17] MEDS: PANTOPRAZOLE 40 MG TABLET PO SCH (07:06)
[2021-10-17] MEDS: SUCRALFATE 1 GM TAB PO SCH ×3 (07:06→16:01)
[2021-10-17] MEDS: hydrALAZINE HCL 10 MG TAB PO SCH ×3 (07:06→16:01)
--- NOTE | 2021-10-17 07:52 | XR ---
EXAMINATION TYPE: XR chest 2V DATE OF EXAM: 10/17/2021 6:22 AM COMPARISON: Chest radiograph from one day prior. CT 10/11/2021. TECHNIQUE: XR chest 2V Frontal and lateral views of the chest. CLINICAL INDICATION:Male, 81 years old with history of left basilar opacity; FINDINGS: Lungs/Pleura: More conspicuous airspace opacities are seen of the left lung base. There is flattening of the diaphragm with increased lucency of the lungs. No evidence of pneumothorax or pleural effusio n. Pulmonary vascularity: Unremarkable. Heart/mediastinum: Cardiomediastinal silhouette is unremarkable. Musculoskeletal: No acute osseous pathology. IMPRESSION: 1. More conspicuous left basilar airspace opacities concerning for pneumonia. Not definitively visua lized on CT 10/11/2021. 2. COPD changes.
--- NOTE | 2021-10-17 08:49 | P.PN ---
Subjective This is a 81-year-old male with a known history of CAD s/p stenting of the LAD in [address] Ricci, hypertension, pulmonary fibrosis, chronic kidney disease, hyperlipidemia. He follows in the office with Dr. Apple. We have been asked to see patient for elevated troponin.Patient presents with symptoms of severe abdominal discomfort and nausea. He has been under increased amount of stress after the of his in May. He has been complaining of abdominal discomfort, increasing in severity with nausea and vomiting, has been evaluated by Dr. Arceo the past. In the past he had a normal systolic function and has underwent a dobutamine stress test in July 2021 that showed no evidence of inducible ischemia. On presentation his troponin is mildly elevated.Patient could not tolerate in the past any antiplatelets regimen including aspirin because of severe abdominal discomfort. EKG on admission revealed Sinus mechanism with nonspecific ST-T wave changes. 10/17/2021 Patient seen and examined at bedside, patient having increased shortness of breath, epigastric pain, chills overnight. Chest x-ray revealed suspicious for left basilar airspace opacity concerning for pneumonia. He has been afebrile, vital signs are stable, 92% on 3 L nasal cannula. Labs pending. He has been started on IV ceftriaxone. PHYSICAL EXAMINATION Vitals Reviewed Head: Normocephalic. Eyes: Sclerae nonicteric. Neck: Good carotid upstroke, no bruit, no jugular venous distention. Lungs: Clear to auscultation. Heart: Regular rate and rhythm, S1-S2, no S3, no rub. Systolic ejection murmur. Abdomen: Soft, epigastric and left upper quadrant tenderness, positive bowel sounds, splenomegaly. Extremities: No edema, intact distal pulses. ASSESSMENT Abdominal discomfort was reproducible epigastric pain, etiology unclear Mild troponin elevation with no chest discomfort. Patient has no clear evidence by EKG or by symptoms to suggest acute cardiac syndrome. He has a known history of CAD and had no evidence of stress-induced ischemia on his dobutamine stress echocardiogram done in July. Chronic kidney disease Anemia Inability to tolerate any antiplatelets Recent episodes of depression and anxiety after the of his Possible pneumonia Anemia PLAN Continue amlodipine, aspirin, Coreg, Imdur Obtain an echocardiogram with Doppler Workup of his epigastric discomfort per primary Anemia workup per primary I would favor medical therapy in view of his prior workup and the inability to tolerate antiplatelets. Further recommendations based on clinical course Nurse practitioner note has been reviewed by physician. Signing provider agrees with the documented findings, assessment, and plan of care. Objective - Vital Signs Vital signs: Vital Signs Temp 98.0 F 10/16/21 15:56 Pulse 84 10/16/21 15:56 Resp 26 H 10/16/21 15:56 BP 130/53 10/16/21 15:56 Pulse Ox 93 L 10/16/21 15:56 FiO2 Intake & Output 10/15/21 10/16/21 10/16/21 18:59 06:59 18:59 Output Total 220 Balance -220 Weight 73.482 kg Output: Urine 120 Stool 100 Other: Voiding Method Urinal Diaper # Voids 1 1 - Labs CBC & Chem 7: 10/17/21 08:09 10/17/21 08:09 Labs: Abnormal Lab Results - Last 24 Hours (Table) 10/16/21 10/16/21 10/16/21 Range/Units 01:57 01:57 01:57 RBC 3.80 L (4.30-5.90) m/uL Hgb 10.4 L (13.0-17.5) gm/dL Hct 30.7 L (39.0-53.0) % RDW 20.9 H (11.5-15.5) % Lymphocytes # (Manual) 0.88 L (1.0-4.8) k/uL Nucleated RBCs 9 H (0-0) /100 WBC BUN 29 H (9-20) mg/dL Creatinine 2.13 H (0.66-1.25) mg/dL Glucose 106 H (74-99) mg/dL Total Bilirubin 4.3 H (0.2-1.3) mg/dL Alkaline Phosphatase 142 H (38-126) U/L Troponin I (0.000-0.034) ng/mL Urine Protein 1+ H (Negative) 10/16/21 10/16/21 10/16/21 Range/Units 01:57 05:32 08:53 RBC (4.30-5.90) m/uL Hgb (13.0-17.5) gm/dL Hct (39.0-53.0) % RDW (11.5-15.5) % Lymphocytes # (Manual) (1.0-4.8) k/uL Nucleated RBCs (0-0) /100 WBC BUN (9-20) mg/dL Creatinine (0.66-1.25) mg/dL Glucose (74-99) mg/dL Total Bilirubin (0.2-1.3) mg/dL Alkaline Phosphatase (38-126) U/L Troponin I 0.053 H* 0.073 H* 0.098 H* (0.000-0.034) ng/mL Urine Protein (Negative)
[2021-10-17 08:54] LABS: Albumin 3.3 g/dL (3.5-5.0); Anisocytosis Moderate; Basophils % (A) 1 %; Calcium 8.1 mg/dL (8.4-10.2); Eosinophils % (A) 0 %; HCT 24.6 % (39.0-53.0); Hypochromasia Slight; Lymphocytes # (A) 0.7 k/uL (1.0-4.8); Lymphocytes % (A) 12 %; MCH 27.6 pg (25.0-35.0); MCHC 33.4 g/dL (31.0-37.0); MCV 82.6 fL (80.0-100.0); Mean Platelet Volume 12.5; Microcytosis Slight; Monocytes # (A) 0.2 k/uL (0-1.0); Monocytes % (A) 4 %; Neutrophils # (A) 5.2 k/uL (1.3-7.7); Neutrophils % (A) 81 %; Platelet Count 102 k/uL (150-450); Poikilocytosis Moderate; RBC 2.98 m/uL (4.30-5.90); RDW 21.2 % (11.5-15.5); Total Bilirubin 3.1 mg/dL (0.2-1.3); Total Protein 5.5 g/dL (6.3-8.2); WBC 6.5 k/uL (3.8-10.6)
[2021-10-17 08:59] LABS: HGB 8.2 gm/dL (13.0-17.5)
[2021-10-17] MEDS ORDERED: ASPIRIN 325 MG TAB PO SCH (09:00)
[2021-10-17] MEDS: ISOSORBIDE MONONITRATE ER 60 MG TAB.ER.24H PO SCH (09:11)
[2021-10-17] MEDS: ASPIRIN 81 MG PO SCH (09:11)
[2021-10-17] MEDS: amLODIPine 5 MG TAB PO SCH (09:11)
[2021-10-17] MEDS: carvediloL 12.5 MG TAB PO SCH ×2 (09:11→21:03)
[2021-10-17] MEDS: SODIUM CHLORIDE 0.9% 1,000 ML IV SCH ×2 (09:12→21:23)
[2021-10-17] MEDS: Ruxolitinib Phosphate [Jakafi] 5 MG Tablet PO SCH (09:18)
[2021-10-17 09:33] LABS: Large Platelets Present; Polychromasia Present
[2021-10-17 09:34] LABS: Basophilic Stippling Present; Ovalocytes Present; Tear Drop Cells Present
--- NOTE | 2021-10-17 10:32 | P.PN ---
Progress Note - Text Progress Note Date: 10/17/21 Will see pt in morning for full consult. Chart reviewed. Pt on Jakafi for MPN. Here for abdominal pain. CBC on presentation with mild elukocytosis and baseline anemia, Hgb 10, normal plt. On repeat this morning, Hgb decreased to 8, plt down to 102, stable WBC. I am concerned with bleeding, possibly GI bleeding causing his acute drop in Hgb and plt. Will obtain work up and rule out hemolysis or other contributing etiology, however for now would recommend GI consult, FOBT, and holding Jakafi due to the cytopenia's. Monitor CBC and supporitive transfusion for Hgb <7.
[2021-10-17] MEDS ORDERED: IPRATROPIUM-ALBUTEROL 3 ML NEB INHALATION PRN (10:50)
--- NOTE | 2021-10-17 10:50 | P.PN ---
Subjective Progress Note Date: 10/17/21 81-year-old male presented emergency room via EMS with complaints of abdominal pain. Patient was recently evaluated on 10/11/[address] for [address] CT was obtained at that time which showed nonobstructing bilateral renal calculi similar to all exam, right renal atrophy, mild lower abdominal aortic aneurysm slightly increased compared to all exam and moderate spinal megaly without change. Patient was discharged home at that time and since that time his symptoms have progressively worsened. Patient does have a cough and which he states started 2 days ago. In the emergency room his oxygen saturation did drop to 85% and was subsequently placed on 2 L nasal cannula. Currently the p atient is on 3 L nasal cannula maintaining oxygen saturations of 92%. He does admit to intermittent periods of shortness of breath and chest pressure, but these mainly come when he has a "coughing jag". He denies any fevers, chills, sore throat, palpitations, back pain, headaches, nausea vomiting or diarrhea. The emergency room troponins were found to be slightly elevated and progressively have come down. Cardiology is consulted and have since ordered an echocardiogram. In July of this year the patient did have a dobutamine stress which revealed no evidence of inducible ischemia. Most recent set of vitals blood pressure 136/73, afebrile 98.1, pulse rate of 93, respiratory rate of 22. Initial blood work reveals a WBC count of 5.2, hemoglobin 10.64, hematocrit of 30.7, platelet count 154. Comprehensive reveals sodium 138, potassium 3.9, albumin of 29, creatinine 2.3, glucose 106, alk phos 142, troponin initially was 0.098 and on the final troponin was found to be 0.053. Urine was positive for 1+ protein. Covid and influenza were not detected. On 10/17/2021: Patient is reevaluated today he was worked up for cardiac issues with abnormal troponins. Cardiology believes this is his chronic issues. He's been coughing quite a bit and slightly hypoxic since admission. He did have a left lung base opacity on chest x-ray. Repeat this morning shows possible pneumonia. I started him on Rocephin yesterday. Vitals show is normotensive. Heart rate respiratory rates are normal. He is afebrile. Pulse ox is low to 93% on 3 L of O2. Labs show worsening anemia with hemoglobin 8.2. Platelets are now 102 down from 154. He is borderline microcytic. Troponin is still abnormal but down from 10.071 today. BUN and creatinine are up to 44 and 2.31 with now a GFR 26. Chest x-ray showed more conspicuous left basilar airspace opacities concerning for pneumonia. COPD. Consult notes reviewed from cardiology. Hematology was added as well. Objective - Vital Signs Vital signs: Vital Signs Temp 98.4 F 10/17/21 09:18 Pulse 85 10/17/21 09:18 Resp 20 10/17/21 09:18 BP 124/56 10/17/21 09:18 Pulse Ox 93 L 10/17/21 09:18 FiO2 Intake & Output 10/16/21 10/17/21 10/17/21 18:59 06:59 18:59 Intake Total 500 237 Output Total 220 500 Balance 280 -500 237 Intake: Oral 500 237 Output: Urine 120 300 Stool 100 200 Other: Voiding Method Urinal Diaper # Voids 1 1 - Exam GENERAL: 81-year-old elderly male, fatigued, well-nourished and in distress with coughing HEAD: Atraumatic, normocephalic. EYES: Pupils equal round and reactive to light, extraocular movements intact, sclera anicteric, conjunctiva are normal. ENT:nares patent, oropharynx clear without exudates. Moist mucous membranes. NECK: Normal range of motion, supple without lymphadenopathy or JVD, no thyromegaly LUNGS: Breath sounds coarse with slight increased noise to the left base. HEART: Regular rate and rhythm without murmurs, rubs or gallops.S1S2 Normal ABDOMEN: Soft, tenderness with palpation bilateral upper quadrants, normoactive bowel sounds. splenomegaly. No masses appreciated. There is costal angle pain palpated on the left mid epigastrium EXTREMITIES: Normal range of motion, no pitting or edema. No clubbing or cyanosis. NEUROLOGICAL: Cranial nerves II through XII grossly intact. Normal speech, normal gait. PSYCH: Normal mood, normal affect. SKIN: Warm, Dry, tenting turgor, no rashes or lesions noted. - Labs CBC & Chem 7: 10/17/21 08:09 10/17/21 08:09 Labs: Abnormal Lab Results - Last 24 Hours (Table) 10/17/21 10/17/2122 Range/Units 08:09 08:09 08:09 RBC 2.98 L (4.30-5.90) m/uL Hgb 8.2 L D (13.0-17.5) gm/dL Hct 24.6 L (39.0-53.0) % RDW 21.2 H (11.5-15.5) % Plt Count 102 L (150-450) k/uL Lymphocytes # 0.7 L (1.0-4.8) k/uL Carbon Dioxide 21 L (22-30) mmol/L BUN 44 H (9-20) mg/dL Creatinine 2.31 H (0.66-1.25) mg/dL Glucose 104 H (74-99) mg/dL Calcium 8.1 L (8.4-10.2) mg/dL Total Bilirubin 3.1 H (0.2-1.3) mg/dL Troponin I 0.071 H* (0.000-0.034) ng/mL Total Protein 5.5 L (6.3-8.2) g/dL Albumin 3.3 L (3.5-5.0) g/dL Assessment and Plan (1) Pneumonia Current Visit: Yes Status: Acute Code(s): J18.9 - PNEUMONIA, UNSPECIFIED ORGANISM SNOMED Code(s): 828765967 (2) Elevated troponin Current Visit: Yes Status: Acute Code(s): R77.8 - OTHER SPECIFIED ABNORMALITIES OF PLASMA PROTEINS SNOMED Code(s): 672491801 (3) CKD (chronic kidney disease), stage III Current Visit: No Status: Acute Code(s): N18.30 - CHRONIC KIDNEY DISEASE, STAGE 3 UNSPECIFIED SNOMED Code(s): 572247333 (4) COPD (chronic obstructive pulmonary disease) Current Visit: No Status: Acute Code(s): J44.9 - CHRONIC OBSTRUCTIVE PULMONARY DISEASE, UNSPECIFIED SNOMED Code(s): 21598093 (5) IPF (idiopathic pulmonary fibrosis) Current Visit: Yes Status: Acute Code(s): J84.112 - IDIOPATHIC PULMONARY FIBROSIS SNOMED Code(s): 593514639 (6) Essential (primary) hypertension Current Visit: Yes Status: Acute Code(s): I10 - ESSENTIAL (PRIMARY) HYPERTENSION SNOMED Code(s): 96563915 (7) Mixed hyperlipidemia Current Visit: Yes Status: Acute Code(s): E78.2 - MIXED HYPERLIPIDEMIA SNOMED Code(s): 082539615 (8) Microcytic anemia Current Visit: Yes Status: Acute Code(s): D50.9 - IRON DEFICIENCY ANEMIA, UNSPECIFIED SNOMED Code(s): 537549198 (9) H/O myocardial infarction, greater than 8 weeks Current Visit: Yes Status: Acute Code(s): I25.2 - OLD MYOCARDIAL INFARCTION SNOMED Code(s): 2088523 (10) Immunosuppression Current Visit: Yes Status: Acute Code(s): D84.9 - IMMUNODEFICIENCY, UNSPECIFIED SNOMED Code(s): 50579553 Plan: He will continue on ceftriaxone for empiric antibiotic treatment of pneumonia. Cardiology's notes have been reviewed. They're following him, but feel his troponin is most likely not given at this time. We'll consult pulmonology for his history of pulmonary fibrosis and nephrology for his worsening kidney failure. We'll add some cough expectorants to help him and defer to pulmonology for steroids. Add updraft treatments. Review his home medications once again. We'll repeat labs in am. He'll be reevaluated next 24 hours
[2021-10-17 11:10] LABS: Chol/HDL Ratio 4.46 Ratio; LDL Cholesterol,Calculated 67.1 mg/dL (0.0-131.0)
[2021-10-17 11:15] LABS: Reticulocyte % 4.1 % (0.5-2.0)
[2021-10-17 11:25] LABS: Bilirubin, Delta 0.6 mg/dL (0.0-0.2); Bilirubin,Unconjugated 2.4 mg/dL (0.0-1.1)
[2021-10-17] MEDS: methylPREDNISolone SOD SUCCI 125 MG/2 ML VIAL IV SCH ×3 (11:57→23:33)
--- NOTE | 2021-10-17 13:52 | P.CNPUL ---
History of Present Illness Consult date: 10/17/21 Reason for consult: dyspnea History of present illness: 81-year-old male patient well known to me, known history of COPD and addition to combination of other medical problems and comorbidities. The patient is dependent on O2 at home. The patient has objective sleep apnea, nontolerant to CPAP therapy and the patient also has a remote history of pulmonary embolism currently on no anticoagulation. Patient also has myelofibrosis for now being treated accordingly. The patient was in the [facility] department. He is back complaining of abdominal pain. The patient's was evaluated on 10/03/2021 and the patient was given a CAT scan of the abdomen that showed nonobstructive bilateral renal calculi and right renal atrophy and abdominal aortic aneurysm that has slightly increased in size and moderate splenomegaly without any interval change. The patient was discharged home and since then the patient is having worsening shortness of breath, congested cough, producing excess amount of mucus and the patient's pulse ox has dropped down to 85% on room air and the patient was placed on 2 L and later on 3 L O2 nasal cannula. He was brought in to the hospital. The white cell count is at 5.2 with a hemoglobin of 10.6. There is suspicion for a left lower lobe pneumonia. Electrolytes show a creatinine of 2.3 with a sodium of 138 and a potassium level of 3.9. Troponins of 0.09. UA was positive for protein. COVID 19 testing and influenza screen was negative. The patient is currently on DuoNeb nebulized treatments around the clock, IV Rocephin, IV Solu Medrol 60 mg every 6 hours. Review of Systems CONSTITUTIONAL: Denies any recent significant weight loss or weight gain. EYES: Denies change in vision. EARS, NOSE, MOUTH, THROAT: Denies headaches, denies sore throat. CARDIOVASCULAR: Positive for chest pain, no palpitations or syncopal episodes. RESPIRATORY: Positive for shortness of breath, and increased cough and mucus production without any hemoptysis. GASTROINTESTINAL: Denies change in appetite, denies abdominal pain GENITOURINARY: Denies hematuria, denies infections. MUSKULOSKELETAL: Denies pain, denies swelling. INTEGUMENTARY: Denies rash, denies eczema. NEUROLOGICAL: Denies recent memory loss, no recent seizure activity. PSYCHIATRIC: Denies anxiety, denies depression. HEMATOLOGIC/LYMPHATIC: Denies anemia, denies enlarged lymph nodes. Past Medical History Past Medical History: Cancer, Chest Pain / Angina, COPD, GERD/Reflux, Hearing Disorder / Deafness, Hyperlipidemia, Hypertension, Myocardial Infarction ([place]), Osteoarthritis ([place]), Prostate Disorder, Pulmonary Embolus ([place]) Additional Past Medical History / Comment(s): Interstitial lung disease, pulmonary fibrosis, PE in 2011-pt cannot recall laterality, past home O2 use but none now, [place]-cannot tolerate Cpap, prostate cancer with radiation treatment, skin cancer with removals, nephrolithiasis, migraines, compression fracture low back, bilateral elbow fractures with surgery, PUD, jaundiced as a child, [place] bilaterally. "mild" [place] in january 2020.Myelofibrosis Last Myocardial Infarction Date:: January 2020 History of Any Multi-Drug Resistant Organisms: None Reported Past Surgical History: Appendectomy, Cholecystectomy, Heart Catheterization, Heart Catheterization With Stent, Hernia Repair, Joint Replacement, Orthopedic Surgery Additional Past Surgical History / Comment(s): Prostate biopsy, L hand partial amp of 2 fingers, L knee ACL repair, R knee arthroscopy, bilateral total elbow replacements per pt, bilateral cataract removals, L inguinal hernia repair, cardiac caths x 2, EGD, colonoscopy, skin cancer removals. Past Anesthesia/Blood Transfusion Reactions: No Reported Reaction Date of Last Stent Placement:: January 2020. Past Psychological History: Anxiety, Depression Smoking Status: Former smoker Past Alcohol Use History: None Reported Past Drug Use History: None Reported - Past Family History Brother(s) Family Medical History: Cancer Additional Family Medical History / Comment(s): ONE BROTHER HAD LUNG CA & AN OTHER HAD MELANOMA. Brother just recently last week. Mother Family Medical History: AICD/Pacemaker Father Family Medical History: No Reported History Sister(s) Family Medical History: No Reported History Medications and Allergies Home Medications Medication Instructions Recorded Confirmed Type Pantoprazole Sodium [Protonix] 40 mg PO DAILY 03/08/16 10/16/21 History Vit C/E/Zn/Coppr/Lutein/Zeaxan 1 cap PO HS 12/12/18 10/16/21 History [Preservision Areds 2 Softgel] Sucralfate [Carafate] 1 gm PO AC-TID 07/16/21 10/16/21 History carvediloL [Coreg*] 12.5 mg PO BID 07/16/21 10/16/21 History lidocaine HCL [lidocaine HCL 5 ml MUCOUS MEM QID PRN 07/16/21 10/16/21 History Viscous] Isosorbide Mononitrate ER [Imdur] 30 mg PO DAILY #30 tablet 07/18/21 10/16/21 Rx Cholecalciferol [Vitamin D3 (25 25 mcg PO HS 08/18/21 10/16/21 History Mcg = 1000 Iu)] Ergocalciferol (Vitamin D2) 1,250 mcg PO FR 08/18/21 10/16/21 History [Drisdol (50,000 Iu)] Super B Complex 1 tab PO HS 08/18/21 10/16/21 History Acetaminophen Tab [Tylenol] 650 mg PO Q6HR PRN tab 08/19/21 10/16/21 Rx Dicyclomine HCl 10 mg PO Q8H PRN 10/16/21 10/16/21 History Diphenoxylate HCl/Atropine 1 tab PO DAILY 10/16/21 10/16/21 History [Lomotil 2.5-0.025 mg Tablet] LORazepam [Ativan] 0.5 mg PO TID 10/16/21 10/16/21 History Lansoprazole [Prevacid 24Hr] 15 mg PO DAILY 10/16/21 10/16/21 History Ruxolitinib Phosphate [Jakafi] 5 mg PO BID 10/16/21 10/16/21 History amLODIPine [Norvasc] 5 mg PO DAILY 10/16/21 10/16/21 History hydrALAZINE HCL [Apresoline] 10 mg PO TID-W/MEALS 10/16/21 10/16/21 History Allergies Allergy/AdvReac Type Severity Reaction Status Date / Time alprazolam [From Xanax] AdvReac Confusion Verified 10/16/21 01:08 Physical Exam Vitals: Vital Signs Temp Pulse Resp BP Pulse Ox 10/17/21 09:18 98.4 F 85 20 124/56 93 L 10/17/21 07:07 132/60 10/17/21 03:46 92 L 10/17/21 03:03 98.4 F 75 22 115/55 92 L 10/17/21 02:00 73 20 10/17/21 00:00 73 20 95 10/16/21 20:00 85 22 07/03/22 19:35 98.5 F 85 22 112/55 95 10/16/21 15:56 98.0 F 84 26 H 130/53 93 L 10/16/21 12:03 81 111/52 91 L Intake and Output 10/16/21 10/17/21 10/17/21 22:59 06:59 14:59 Intake Total 500 237 Output Total 200 400 Balance 300 -400 237 Intake: Oral 500 237 Output: Urine 300 Stool 200 100 Other: Voiding Method Urinal Urinal Diaper Diaper # Voids 1 1 GENERAL: 81-year-old elderly male, fatigued, well-nourished and in no acute distress. Currently on 2 L O2 nasal cannula with a pulse oximetry 94% [place] afebrile HEAD: Atraumatic, normocephalic. EYES: Pupils equal round and reactive to light, extraocular movements intact, sclera anicteric, conjunctiva are normal. ENT:nares patent, oropharynx clear without exudates. Moist mucous membranes. NECK: Normal range of motion, supple without lymphadenopathy or JVD, no thyromegaly LUNGS: Breath sounds clear to auscultation bilaterally and equal. No wheezes rales or rhonchi. Loose nonproductive cough during exam HEART: Regular rate and rhythm without murmurs, rubs or gallops.S1S2 Normal ABDOMEN: Soft, tenderness with palpation bilateral upper quadrants, normoactive bowel sounds. splenomegaly. No masses appreciated. EXTREMITIES: Normal range of motion, no pitting or edema. No clubbing or cyanosis. NEUROLOGICAL: Cranial nerves II through XII grossly intact. Normal speech, normal gait. PSYCH: Normal mood, normal affect. SKIN: Warm, Dry, tenting turgor, no rashes or lesions noted. Results - Laboratory Findings CBC and BMP: 10/17/21 08:09 10/17/21 08:09 ABG WBC 6.5 k/uL (3.8-10.6) 10/17/21 08:09 RBC 2.98 m/uL (4.30-5.90) L 10/17/21 08:09 Hgb 8.2 gm/dL (13.0-17.5) L D 10/17/21 08:09 Hct 24.6 % (39.0-53.0) L 10/17/21 08:09 MCV 82.6 fL (80.0-100.0) 10/17/21 08:09 MCH 27.6 pg (25.0-35.0) 10/17/21 08:09 MCHC 33.4 g/dL (31.0-37.0) 10/17/21 08:09 RDW 21.2 % (11.5-15.5) H 10/17/21 08:09 Plt Count 102 k/uL (150-450) L 10/17/21 08:09 MPV 12.5 10/17/21 08:09 Neutrophils % 81 % 10/17/21 08:09 Neutrophils % (Manual) 77 % 10/16/21 01:57 Band Neuts % (Manual) 3 % 10/16/21 01:57 Lymphocytes % 12 % 10/17/21 08:09 Lymphocytes % (Manual) 17 % 10/16/21 01:57 Monocytes % 4 % 10/17/21 08:09 Monocytes % (Manual) 4 % 10/16/21 01:57 Eosinophils % 0 % 10/17/21 08:09 Eosinophils % (Manual) 1 % 10/16/21 01:57 Basophils % 1 % 10/17/21 08:09 Neutrophils # 5.2 k/uL (1.3-7.7) 10/17/21 08:09 Neutrophils # (Manual) 4.10 k/uL (1.3-7.7) 10/16/21 01:57 Lymphocytes # 0.7 k/uL (1.0-4.8) L 10/17/21 08:09 Lymphocytes # (Manual) 0.88 k/uL (1.0-4.8) L 10/16/21 01:57 Monocytes # 0.2 k/uL (0-1.0) 10/17/21 08:09 Monocytes # (Manual) 0.21 k/uL (0-1.0) 10/16/21 01:57 Eosinophils # 0.0 k/uL (0-0.7) 10/17/21 08:09 Eosinophils # (Manual) 0.05 k/uL (0-0.7) 10/16/21 01:57 Basophils # 0.0 k/uL (0-0.2) 10/17/21 08:09 Nucleated RBCs 9 /100 WBC (0-0) H 10/16/21 01:57 Manual Slide Review Performed 10/17/21 08:09 Large Platelets Present 10/17/21 08:09 Polychromasia Present 10/17/21 08:09 Hypochromasia Slight 10/17/21 08:09 Poikilocytosis Moderate 10/17/21 08:09 Basophilic Stippling Present 10/17/21 08:09 Anisocytosis Moderate 10/17/21 08:09 Microcytosis Slight 10/17/21 08:09 Tear Drop Cells Present 10/17/21 08:09 Ovalocytes Present 10/17/21 08:09 Sodium 137 mmol/L (137-145) 10/17/21 08:09 Potassium 4.0 mmol/L (3.5-5.1) 10/17/21 08:09 Chloride 106 mmol/L (98-107) 10/17/21 08:09 Carbon Dioxide 21 mmol/L (22-30) L 10/17/21 08:09 Anion Gap 10 mmol/L 10/17/21 08:09 BUN 44 mg/dL (9-20) H 10/17/21 08:09 Creatinine 2.31 mg/dL (0.66-1.25) H 10/17/21 08:09 Est GFR (CKD-EPI)AfAm 30 (>60 ml/min/1.73 sqM) 10/17/21 08:09 Est GFR (CKD-EPI)NonAf 26 (>60 ml/min/1.73 sqM) 10/17/21 08:09 Glucose 104 mg/dL (74-99) H 10/17/21 08:09 Calcium 8.1 mg/dL (8.4-10.2) L 10/17/21 08:09 Total Bilirubin 3.1 mg/dL (0.2-1.3) H 10/17/21 08:09 AST 24 U/L (17-59) 10/17/21 08:09 ALT 19 U/L (4-49) 10/17/21 08:09 Alkaline Phosphatase 118 U/L (38-126) 10/17/21 08:09 Troponin I 0.071 ng/mL (0.000-0.034) H* 10/17/21 08:09 Total Protein 5.5 g/dL (6.3-8.2) L 10/17/21 08:09 Albumin 3.3 g/dL (3.5-5.0) L 10/17/21 08:09 Amylase 68 U/L (30-110) 10/16/21 01:57 Lipase 59 U/L (23-300) 10/16/21 01:57 Urine Color Light Yellow 10/16/21 01:57 Urine Appearance Clear (Clear) 10/16/21 01:57 Urine pH 7.5 (5.0-8.0) 10/16/21 01:57 Ur Specific [place] 1.009 (1.001-1.035) 10/16/21 01:57 Urine Protein 1+ (Negative) H 10/16/21 01:57 Urine Glucose (UA) Negative (Negative) 10/16/21 01:57 Urine Ketones Negative (Negative) 10/16/21 01:57 Urine Blood Negative (Negative) 10/16/21 01:57 Urine Nitrite Negative (Negative) 10/16/21 01:57 Urine Bilirubin Negative (Negative) 10/16/21 01:57 Urine Urobilinogen <2.0 mg/dL (<2.0) 10/16/21 01:57 Ur Leukocyte Esterase Negative (Negative) 10/16/21 01:57 Urine RBC <1 /hpf (0-5) 10/16/21 01:57 Urine WBC 1 /hpf (0-5) 10/16/21 01:57 Coronavirus (PCR) Not Detected (Not Detectd) 10/16/21 02:10 Influenza Type A RNA Not Detected (Not Detectd) 10/16/21 02:10 Influenza Type B (PCR) Not Detected (Not Detectd) 10/16/21 02:10 Abnormal lab findings: Abnormal Labs 10/16/21 10/16/21 10/16/21 01:57 01:57 01:57 RBC 3.80 L Hgb 10.4 L Hct 30.7 L RDW 20.9 H Plt Count Lymphocytes # Lymphocytes # (Manual) 0.88 L Nucleated RBCs 9 H Carbon Dioxide BUN 29 H Creatinine 2.13 H Glucose 106 H Calcium Total Bilirubin 4.3 H Alkaline Phosphatase 142 H Troponin I Total Protein Albumin Urine Protein 1+ H 10/16/21 10/16/21 10/16/21 01:57 05:32 08:53 RBC Hgb Hct RDW Plt Count Lymphocytes # Lymphocytes # (Manual) Nucleated RBCs Carbon Dioxide BUN Creatinine Glucose Calcium Total Bilirubin Alkaline Phosphatase Troponin I 0.053 H* 0.073 H* 0.098 H* Total Protein Albumin Urine Protein 10/17/21 10/17/21 10/17/21 08:09 08:09 08:09 RBC 2.98 L Hgb 8.2 L D Hct 24.6 L RDW 21.2 H Plt Count 102 L Lymphocytes # 0.7 L Lymphocytes # (Manual) Nucleated RBCs Carbon Dioxide 21 L BUN 44 H Creatinine 2.31 H Glucose 104 H Calcium 8.1 L Total Bilirubin 3.1 H Alkaline Phosphatase Troponin I 0.071 H* Total Protein 5.5 L Albumin 3.3 L Urine Protein - Diagnostic Findings Chest x-ray: image reviewed Assessment and Plan Plan: Acute exacerbation of COPD with likely left lower lobe pneumonia versus tracheal bronchitis. The patient has a copious sputum production, likely infectious in nature. Viral screen came back negative. Currently on IV Rocephin. Currently on DuoNeb nebulized treatments around the clock in addition to IV Solu-Medrol. Acute hypoxic respiratory failure currently on 2 L of nasal cannula Acute shortness of breath secondary to above abdominal pain, findings a CAT scan of the abdomen were nonspecific Chronic kidney disease stage III. Myelofibrosis Hypertension 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 Remote history of pulmonary embolism back in 2011, currently on no anticoagula nts Obstructive sleep apnea not receiving CPAP therapy BPH Impaired hearing Hyperlipidemia Hypertension Cardiac catheterization with previous stent insertion History of skin cancer Osteoarthritis Abdominal aortic aneurysm, slight increase in size based on the CAT scan findings Nephrolithiasis Migraines Impression fraction of the lower spine Plan Sputum Gram stain and culture Continue IV Rocephin Continue DuoNeb neb treatment [id number] continue IV Solu-Medrol Resume all medications Oxygen therapy to maintain saturation above 90% We'll continue to follow
[2021-10-17] MEDS: HYDROcodone/APAP 5-325MG 1 EACH TAB PO PRN (15:34)
[2021-10-17] MEDS: guaiFENesin 600 MG TABLET.ER PO PRN (16:01)
[2021-10-17] MEDS: MAG HYDROX/AL HYDROX/SIMETH 30 ML CUP PO PRN ×2 (16:01→21:03)
[2021-10-17] MEDS: VIT A,C & E-LUTEIN-MINERALS 1 EACH TAB PO SCH (21:02)
[2021-10-17] MEDS: LORazepam 0.5 MG TAB PO SCH (21:03)
[2021-10-17] MEDS: SYMBICORT 160-4.5 MCG INHALER INHALATION SCH (21:03)
[2021-10-17 21:45] LABS: % Iron Saturation 6.7 (15.00-50.00)
[2021-10-18 06:14] LABS: Glucose,Whole Blood 171 mg/dL (70-110)
[2021-10-18] MEDS: methylPREDNISolone SOD SUCCI 125 MG/2 ML VIAL IV SCH ×4 (07:05→23:44)
[2021-10-18] MEDS: MAG HYDROX/AL HYDROX/SIMETH 30 ML CUP PO PRN ×3 (07:05→20:59)
[2021-10-18] MEDS: SUCRALFATE 1 GM TAB PO SCH ×3 (07:06→16:58)
[2021-10-18] MEDS: hydrALAZINE HCL 10 MG TAB PO SCH ×3 (07:06→16:58)
[2021-10-18] MEDS: guaiFENesin 600 MG TABLET.ER PO PRN ×2 (07:06→20:59)
[2021-10-18] MEDS: PANTOPRAZOLE 40 MG TABLET PO SCH (07:06)
[2021-10-18] MEDS: SODIUM CHLORIDE 0.9% 1,000 ML IV SCH (07:15)
[2021-10-18] MEDS: SYMBICORT 160-4.5 MCG INHALER INHALATION SCH ×2 (07:40→19:07)
[2021-10-18 07:47] LABS: Calcium 7.9 mg/dL (8.4-10.2)
[2021-10-18 08:17] LABS: Anisocytosis Moderate; HCT 25.4 % (39.0-53.0); HGB 8.4 gm/dL (13.0-17.5); Hypochromasia Slight; MCH 27.8 pg (25.0-35.0); MCHC 33.2 g/dL (31.0-37.0); MCV 83.6 fL (80.0-100.0); Mean Platelet Volume 12.1; Microcytosis Slight; Poikilocytosis Slight; RBC 3.04 m/uL (4.30-5.90); RDW 21.3 % (11.5-15.5); WBC 6.6 k/uL (3.8-10.6)
[2021-10-18] MEDS: amLODIPine 5 MG TAB PO SCH (09:00)
[2021-10-18] MEDS: ASPIRIN 81 MG PO SCH (09:00)
[2021-10-18] MEDS: carvediloL 12.5 MG TAB PO SCH ×2 (09:00→21:00)
[2021-10-18] MEDS: LORazepam 0.5 MG TAB PO SCH ×3 (09:01→21:00)
[2021-10-18] MEDS: ISOSORBIDE MONONITRATE ER 60 MG TAB.ER.24H PO SCH (09:01)
[2021-10-18 09:38] LABS: Platelet Count 111 k/uL (150-450)
--- NOTE | 2021-10-18 10:33 | P.NPCON ---
History of Present Illness - Reason for Consult acute renal failure, chronic renal failure - History of Present Illness Reason for consultation: Acute kidney injury on chronic kidney disease History of present illness: Patient is a 81-year-old male seen in consultation for acute kidney injury on chronic kidney disease. Patient has chronic kidney disease stage IIIB with baseline creatinine near 2 secondary to ischemic nephropathy. Patient did have positive BENIGNO and positive double-stranded DNA antibody. Patient had refused kidney biopsy in the past. He has seen rheumatology area patient presented to the hospital with abdominal discomfort going on for the last few weeks. He also complains of diarrhea. Recent computed tomography scan showed nonobstructing renal calculi and right renal atrophy. Also noted to have aortic aneurysm and splenomegaly. Patient states diarrhea started when he started the medication Jakafi which she takes for MPN. He denies use of nonsteroidals. He does admit to bringing up productive phlegm which is sen color. Patient and chronic dyspnea and has underlying COPD. Patient's renal function has been fairly stable over the past year. Creatinine was 2.31 on admission and is 2.14 today. He denies any hematuria or dysuria. Patient has a history of coronary disease status post stenting of the LAD in 2019. Echocardiogram is pending. He is currently on antibiotics for possible pneumonia. Vital signs are stable. General: Awake. No acute distress. HEENT: Head exam is unremarkable. LUNGS: Breath sounds decreased. HEART: Rate and Rhythm are regular. ABDOMEN: Soft, no distention. No rebound tenderness. EXTREMITITES: No edema. Past Medical History Past Medical History: Cancer, Chest Pain / Angina, COPD, GERD/Reflux, Hearing Disorder / Deafness, Hyperlipidemia, Hypertension, Myocardial Infarction ([place]), [place] steoarthritis (OA), Prostate Disorder, Pulmonary Embolus (PE) Additional Past Medical History / Comment(s): Interstitial lung disease, pulmonary fibrosis, PE in 2012-pt cannot recall laterality, past home O2 use but none now, [place]-cannot tolerate Cpap, prostate cancer with radiation treatment, skin cancer with removals, nephrolithiasis, migraines, compression fracture low back, bilateral elbow fractures with surgery, PUD, jaundiced as a child, [place] bilaterally. "mild" [place] in january 2020.Myelofibrosis Last Myocardial Infarction Date:: January 2020 History of Any Multi-Drug Resistant Organisms: None Reported Past Surgical History: Appendectomy, Cholecystectomy, Heart Catheterization, Heart Catheterization With Stent, Hernia Repair, Joint Replacement, Orthopedic Surgery Additional Past Surgical History / Comment(s): Prostate biopsy, L hand partial amp of 2 fingers, L knee ACL repair, R knee arthroscopy, bilateral total elbow replacements per pt, bilateral cataract removals, L inguinal hernia repair, cardiac caths x 2, EGD, colonoscopy, skin cancer removals. Past Anesthesia/Blood Transfusion Reactions: No Reported Reaction Date of Last Stent Placement:: January 2020. Past Psychological History: Anxiety, Depression Smoking Status: Former smoker Past Alcohol Use History: None Reported Past Drug Use History: None Reported - Past Family History Brother(s) Family Medical History: Cancer Additional Family Medical History / Comment(s): ONE BROTHER HAD LUNG CA & ANOTHER HAD MELANOMA. Brother just recently last week. Mother Family Medical History: AICD/Pacemaker Father Family Medical History: No Reported History Sister(s) Family Medical History: No Reported History Medications and Allergies Home Medications Medication Instructions Recorded Confirmed Type Pantoprazole Sodium [Protonix] 40 mg PO DAILY 03/08/16 10/16/21 History Vit C/E/Zn/Coppr/Lutein/Zeaxan 1 cap PO HS 12/12/18 10/16/21 History [Preservision Areds 2 Softgel] Sucralfate [Carafate] 1 gm PO AC-TID 07/16/21 10/16/21 History carvediloL [Coreg*] 12.5 mg PO BID 07/16/21 10/16/21 History lidocaine HCL [lidocaine HCL 5 ml MUCOUS MEM QID PRN 07/16/21 10/16/21 History Viscous] Isosorbide Mononitrate ER [Imdur] 30 mg PO DAILY #30 tablet 07/18/21 10/16/21 Rx Cholecalciferol [Vitamin D3 (25 25 mcg PO HS 08/18/21 10/16/21 History Mcg = 1000 Iu)] Ergocalciferol (Vitamin D2) 1,250 mcg PO FR 08/18/21 10/16/21 History [Drisdol (50,000 Iu)] Super B Complex 1 tab PO HS 08/18/21 10/16/21 History Acetaminophen Tab [Tylenol] 650 mg PO Q6HR PRN tab 08/19/21 10/16/21 Rx Dicyclomine HCl 10 mg PO Q8H PRN 10/16/21 10/16/21 History Diphenoxylate HCl/Atropine 1 tab PO DAILY 10/16/21 10/16/21 History [Lomotil 2.5-0.025 mg Tablet] LORazepam [Ativan] 0.5 mg PO TID 10/16/21 10/16/21 History Lansoprazole [Prevacid 24Hr] 15 mg PO DAILY 10/16/21 10/16/21 History Ruxolitinib Phosphate [Jakafi] 5 mg PO BID 10/16/21 10/16/21 History amLODIPine [Norvasc] 5 mg PO DAILY 10/16/21 10/16/21 History hydrALAZINE HCL [Apresoline] 10 mg PO TID-W/MEALS 10/16/21 10/16/21 History Allergies Allergy/AdvReac Type Severity Reaction Status Date / Time alprazolam [From Xanax] AdvReac Confusion Verified 10/16/21 01:08 Physical Exam Vitals: Vital Signs Temp Pulse Resp BP Pulse Ox 10/18/21 08:52 97.7 F 73 20 130/62 93 L 10/18/21 03:13 97.5 F L 70 18 132/60 93 L 10/18/21 02:00 70 18 10/17/21 23:36 98.2 F 70 18 104/40 92 L 10/17/21 20:00 79 18 10/17/21 19:45 98.1 F 79 18 129/56 92 L 10/17/21 15:51 98.1 F 91 19 110/64 95 10/17/21 12:00 98.6 F 84 18 112/52 94 L Intake and Output 10/17/21 10/18/21 10/18/21 22:59 06:59 14:59 Intake Total 0 0 Output Total 500 650 Balance -500 -650 0 Intake: Oral 0 0 Output: Urine 400 550 Stool 100 100 Other: Voiding Method Urinal Urinal Diaper Diaper # Voids 1 # Bowel Movements 1 1 Results - Lab Results Most recent lab results Calcium 7.9 mg/dL (8.4-10.2) L 10/18/21 06:30 10/18/21 06:30 10/18/21 06:30 Assessment and Plan Plan: Assessment: 1. Acute kidney injury mostly prerenal from poor intake and diarrhea. Creatinine 2.31 on admission and is 2.14 today. CAT scan done 10/11/2021 showed nonobstructing renal calculi with right renal atrophy. No hydronephrosis noted. 2. 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 UA with 1+ protein. No blood. Patient does have positive BENIGNO and double-stranded DNA antibody. Rest serologies negative. Due to solitary functioning kidney and depressed GFR (<30), kidney biopsy was not done. Patient also refused the biopsy. 3. Abdominal pain and diarrhea. Surgery following. 4. Anemia of chronic kidney disease. Stool for occult blood negative. Also noted with thrombocytopenic. Iron deficiency noted. 5. Metabolic acidosis secondary to acute kidney injury. 6. Hypertension with chronic kidney disease. Controlled. 7. Pneumonia on antibiotics. 8. History of myelofibrosis. Oncology consulted. Plan: Maintain IV fluids. Add IV iron. Avoid nephrotoxins. Continue to monitor renal function and urine output. Follow-up echocardiogram. Would also benefit from rheumatology eval outpatient. Thank you for the consultation. I will continue to follow the patient with you during his hospital stay.
[2021-10-18] MEDS: SODIUM FERRIC GLUCONAT-SUCROSE 125 MG in SODIUM CHLORIDE 0.9% 100 ML IVPB SCH (11:24)
[2021-10-18 11:32] LABS: Glucose,Whole Blood 223 mg/dL (70-110)
--- NOTE | 2021-10-18 12:51 | P.PN ---
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 Patient also complains of abdominal pain which is chronic in nature has grossly enlarged spleen secondary to myelofibrosis currently on O2 3 L nasal cannula short of breath white cell count was 5.2 with a hemoglobin of 10.6 which is about his baseline. Suspicion for left lower lobe pneumonia current admission labs demonstrated creatinine of 2.3 sodium of 138 potassium of 3.9 troponin 0.9 Objective - Vital Signs Vital signs: Vital Signs Temp 97.8 F 10/18/21 11:25 Pulse 72 10/18/21 11:25 Resp 28 H 10/18/21 11:25 BP 137/54 10/18/21 11:25 Pulse Ox 94 L 10/18/21 11:25 FiO2 Intake & Output 10/17/21 10/18/21 10/18/21 18:59 06:59 18:59 Intake Total 237 0 Output Total 400 750 Balance -163 -750 0 Intake: Oral 237 0 Output: Urine 400 550 Stool 200 Other: Voiding Method Urinal Diaper # Voids 1 # Bowel Movements 1 1 - Exam General: [Patient awake, alert and oriented times 3. Patient in no acute distress.] HEENT: [PERRL. EOMI. No pharyngeal erythema or exudate.] Neck: [No adenopathy.] Cardiac: [Heart regular in rate and rhythm. No S3. No S4. No clicks, rubs. No murmur.] Lungs: [Clear to auscultation bilaterally.] Abdomen: [No mass. Grossly enlarged spleen on palpitation. Bowel sounds presnt and normoactive in all 4 quadrants. 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 CN II - XII grossly intact.] Lymphatic: [No adenopathy.] - Labs CBC & Chem 7: 10/18/21 06:30 10/18/21 06:30 Labs: Abnormal Lab Results - Last 24 Hours (Table) 10/17/21 10/18/21 10/18/21 Range/Units 08:09 06:13 06:30 RBC (4.30-5.90) m/uL Hgb (13.0-17.5) gm/dL Hct (39.0-53.0) % RDW (11.5-15.5) % Plt Count (150-450) k/uL Sodium 136 L (137-145) mmol/L Carbon Dioxide 20 L (22-30) mmol/L BUN 42 H (9-20) mg/dL Creatinine 2.14 H (0.66-1.25) mg/dL Glucose 156 H (74-99) mg/dL POC Glucose (mg/dL) 171 H (70-110) mg/dL Calcium 7.9 L (8.4-10.2) mg/dL Iron 14 L (65-175) ug/dL TIBC 203 L (228-460) ug/dL % Saturation 6.70 L (15.00-50.00) Transferrin 145.0 L (204.0-354.0) mg/dL Ferritin 369.0 H (22.0-322.0) ng/mL Vitamin B12 978.0 H (200.0-944.0) pg/mL 10/18/21 10/18/21 Range/Units 06:30 11:30 RBC 3.04 L (4.30-5.90) m/uL Hgb 8.4 L (13.0-17.5) gm/dL Hct 25.4 L (39.0-53.0) % RDW 21.3 H (11.5-15.5) % Plt Count 111 L (150-450) k/uL Sodium (137-145) mmol/L Carbon Dioxide (22-30) mmol/L BUN (9-20) mg/dL Creatinine (0.66-1.25) mg/dL Glucose (74-99) mg/dL POC Glucose (mg/dL) 223 H (70-110) mg/dL Calcium (8.4-10.2) mg/dL Iron (65-175) ug/dL TIBC (228-460) ug/dL % Saturation (15.00-50.00) Transferrin (204.0-354.0) mg/dL Ferritin (22.0-322.0) ng/mL Vitamin B12 (200.0-944.0) pg/mL Microbiology - Last 24 Hours (Table) 10/17/21 03:00 Gram Stain - Preliminary Sputum Sputum Culture - Preliminary Assessment and Plan Assessment: Acute exacerbation of COPD with left lower lobe pneumonia Acute hypoxic respiratory failure currently on 3 L nasal O2 Abdominal pain probably secondary to enlarged spleen Myelofibrosis Chronic kidney disease stage III Hypertension currently controlled 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 Obstructive sleep apnea currently untreated patient does not tolerate CPAP BPH Coronary artery disease with previous stent placement Hyperlipidemia On obstructive nephrolithiasis Abdominal aortic aneurysm slight increase in size on CAT scan findings Plan: Sputum Gram stain and culture IV antibiotics Inhaled corticosteroids inhaled DuoNeb Continue home meds for hypertension oxygen to maintain sats Time with Patient: Greater than 30
--- NOTE | 2021-10-18 13:13 | P.PN ---
Subjective This is a 81-year-old male with a known history of CAD s/p stenting of the LAD [place] [address] Ricci, hypertension, pulmonary fibrosis, chronic kidney disease, hyperlipidemia. He follows in the office with Dr. Apple. We have been asked to see patient for elevated troponin.Patient presents with symptoms of severe abdominal discomfort and nausea. He has been under increased amount of stress after the of his in May. He has been complaining of abdominal discomfort, increasing in severity with nausea and vomiting, has been evaluated by Dr. Arceo the past. In the past he had a normal systolic function and has underwent a dobutamine stress test in July 2021 that showed no evidence of inducible ischemia. On presentation his troponin is mildly elevated.Patient could not tolerate in the past any antiplatelets regimen including aspirin because of severe abdominal discomfort. EKG on admission revealed Sinus mechanism with nonspecific ST-T wave changes. 10/18/2021 Patient seen and examined at bedside, no acute distress. Denies any chest pain. Shortness of breath improved. Epigastric pain improved. Chest x-ray yesterda rev ealed suspicious for left basilar airspace opacity concerning for pneumonia. He has been afebrile, vital signs are stable, 93-94% on 3 L nasal cannula. He has been started on IV ceftriaxone. PHYSICAL EXAMINATION Vitals Reviewed Head: Normocephalic. Eyes: Sclerae nonicteric. Neck: Good carotid upstroke, no bruit, no jugular venous distention. Lungs: Clear to auscultation. Heart: Regular rate and rhythm, S1-S2, no S3, no rub. Systolic ejection murmur. Abdomen: Soft, epigastric and left upper quadrant tenderness, positive bowel sounds, splenomegaly. Extremities: No edema, intact distal pulses. ASSESSMENT Abdominal discomfort was reproducible epigastric pain, etiology unclear Mild troponin elevation with no chest discomfort. Patient has no clear evidence by EKG or by symptoms to suggest acute cardiac syndrome. He has a known history of CAD and had no evidence of stress-induced ischemia on his dobutamine stress echocardiogram done in July 2021 Chronic kidney disease Anemia Inability to tolerate any antiplatelets Recent episodes of depression and anxiety after the of his Possible pneumonia Anemia PLAN Continue amlodipine, aspirin, Coreg, Imdur Obtain an echocardiogram with Doppler Workup of his epigastric discomfort per primary Anemia workup per primary Further recommendations based on clinical course Nurse practitioner note has been reviewed by physician. Signing provider agrees with the documented findings, assessment, and plan of care. Objective - Vital Signs Vital signs: Vital Signs Temp 97.8 F 10/18/21 11:25 Pulse 72 10/18/21 11:25 Resp 28 H 10/18/21 11:25 BP 137/54 10/18/21 11:25 Pulse Ox 94 L 10/18/21 11:25 FiO2 Intake & Output 10/17/21 10/18/21 10/18/21 18:59 06:59 18:59 Intake Total 237 0 Output Total 400 750 Balance -163 -750 0 Intake: Oral 237 0 Output: Urine 400 550 Stool 200 Other: Voiding Method Urinal Diaper # Voids 1 # Bowel Movements 1 1 - Labs CBC & Chem 7: 10/18/21 06:30 10/18/21 06:30 Labs: Abnormal Lab Results - Last 24 Hours (Table) 10/17/21 10/18/21 10/18/21 Range/Units 08:09 06:13 06:30 RBC (4.30-5.90) m/uL Hgb (13.0-17.5) gm/dL Hct (39.0-53.0) % RDW (11.5-15.5) % Plt Count (150-450) k/uL Sodium 136 L (137-145) mmol/L Carbon Dioxide 20 L (22-30) mmol/L BUN 42 H (9-20) mg/dL Creatinine 2.14 H (0.66-1.25) mg/dL Glucose 156 H (74-99) mg/dL POC Glucose (mg/dL) 171 H (70-110) mg/dL Calcium 7.9 L (8.4-10.2) mg/dL Iron 14 L (65-175) ug/dL TIBC 203 L (228-460) ug/dL % Saturation 6.70 L (15.00-50.00) Transferrin 145.0 L (204.0-354.0) mg/dL Ferritin 369.0 H (22.0-322.0) ng/mL Total Bilirubin 3.0 H (0.2-1.3) mg/dL Unconjugated Bilirubin 2.4 H (0.0-1.1) mg/dL Delta Bilirubin 0.6 H (0.0-0.2) mg/dL Lactate Dehydrogenase 2152 H (313-618) U/L Vitamin B12 978.0 H (200.0-944.0) pg/mL 10/18/21 Range/Units 06:30 RBC 3.04 L (4.30-5.90) m/uL Hgb 8.4 L (13.0-17.5) gm/dL Hct 25.4 L (39.0-53.0) % RDW 21.3 H (11.5-15.5) % Plt Count 111 L (150-450) k/uL Sodium (137-145) mmol/L Carbon Dioxide (22-30) mmol/L BUN (9-20) mg/dL Creatinine (0.66-1.25) mg/dL Glucose (74-99) mg/dL POC Glucose (mg/dL) (70-110) mg/dL Calcium (8.4-10.2) mg/dL Iron (65-175) ug/dL TIBC (228-460) ug/dL % Saturation (15.00-50.00) Transferrin (204.0-354.0) mg/dL Ferritin (22.0-322.0) ng/mL Total Bilirubin (0.2-1.3) mg/dL Unconjugated Bilirubin (0.0-1.1) mg/dL Delta Bilirubin (0.0-0.2) mg/dL Lactate Dehydrogenase (313-618) U/L Vitamin B12 (200.0-944.0) pg/mL Microbiology - Last 24 Hours (Table) 10/17/21 03:00 Gram Stain - Preliminary Sputum Sputum Culture - Preliminary
[2021-10-18 13:38] LABS: Partial Thromboplastin Time 30.2 sec (22.0-30.0); Prothrombin Time 10.9 sec (9.0-12.0)
--- NOTE | 2021-10-18 14:53 | P.PN ---
Subjective Progress Note Date: 10/18/21 Principal diagnosis: Shortness of breath 81-year-old male patient well known to me, known history of COPD and addition to combination of other medical problems and comorbidities. The patient is dependent on O2 at home. The patient has objective sleep apnea, nontolerant to CPAP therapy and the patient also has a remote history of pulmonary embolism currently on no anticoagulation. Patient also has myelofibrosis for now being treated accordingly. The patient was in the [facility] department. He is back complaining of abdominal pain. The patient's was evaluated on 10/03/2021 and the patient was given a CAT scan of the abdomen that showed nonobstructive bilateral renal calculi and right renal atrophy and abdominal aortic aneurysm that has slightly increased in size and moderate splenomegaly without any interval change. The patient was discharged home and since then the patient is having worsening shortness of breath, congested cough, producing excess amount of mucus and the patient's pulse ox has dropped down to 85% on room air and the patient was placed on 2 L and later on 3 L O2 nasal cannula. He was brought into the hospital. The white cell count is at 5.2 with a hemoglobin of 10.6. There is suspicion for a left lower lobe pneumonia. Electrolytes show a creatinine of 2.3 with a sodium of 138 and a potassium level of 3.9. Troponins of 0.09. UA was positive for protein. COVID 19 testing and influenza screen was negative. The patient is currently on DuoNeb nebulized treatments around the clock, IV Rocephin, IV Solu Medrol 60 mg every 6 hours. On 10/18/2021 patient seen in follow-up on selective care unit. Patient is awake and alert, he states he is feeling much better, breathing much easier. He remains on antibiotics in the form of Rocephin for left lower lobe pneumonia, possibly community-acquired. Has a congested cough, no hemoptysis, he remains on 3 L of oxygen pulse ox is 93%. No fever or chills, no chest discomfort. What is signs have been stable. Yesterday's chest x-ray showed more conspicuous left basilar airspace opacity concerning for pneumonia, and COPD changes. His labs have been reviewed showing white blood cell count of 6.6, hemoglobin of 8.4, sodium is 136, potassium is 4.0, CO2 is 20, BUN is 42, creatinine is 2.14. COVID-19 PCR, influenza A and B were negative. Sputum culture has been sent and showing moderate PMNs, many gram-negative bacilli and a few gram-positive cocci. Objective - Vital Signs Vital signs: Vital Signs Temp 97.8 F 10/18/21 11:25 Pulse 72 10/18/21 11:25 Resp 28 H 10/18/21 11:25 BP 137/54 10/18/21 11:25 Pulse Ox 94 L 10/18/21 11:25 FiO2 Intake & Output 10/17/21 10/18/21 10/18/21 18:59 06:59 18:59 Intake Total 237 0 Output Total 400 750 Balance -163 -750 0 Intake: Oral 237 0 Output: Urine 400 550 Stool 200 Other: Voiding Method Urinal Diaper # Voids 200 # Bowel Movements 1 1 - Exam GENERAL EXAM: Alert, very pleasant, 81-year-old white male, on 3 L of oxygen pulse ox of 93-94% comfortable in no apparent distress. HEAD: Normocephalic/atraumatic. EYES: Normal reaction of pupils, equal size. Conjunctiva pink, sclera white. NOSE: Clear with pink turbinates. THROAT: No erythema or exudates. NECK: No masses, no JVD, no thyroid enlargement, no adenopathy. CHEST: No chest wall deformity. Symmetrical expansion. LUNGS: Equal air entry with bibasilar crackles CVS: Regular rate and rhythm, normal S1 and S2, no gallops, no murmurs, no rubs ABDOMEN: Soft, nontender. No hepatosplenomegaly, normal bowel sounds, no guarding or rigidity. EXTREMITIES: No clubbing, no edema, no cyanosis, 2+ pulses and upper and lower extremities. MUSCULOSKELETAL: Muscle strength and tone normal. SPINE: No scoliosis or deformity SKIN: No rashes CENTRAL NERVOUS SYSTEM: Alert and oriented -3. No focal deficits, tone is normal in all 4 extremities. PSYCHIATRIC: Alert and oriented -3. Appropriate affect. Intact judgment and insight. - Labs CBC & Chem 7: 10/18/21 06:30 10/18/21 06:30 Labs: Abnormal Lab Results - Last 24 Hours (Table) 10/17/21 10/18/21 10/18/21 Range/Units 08:09 06:13 06:30 RBC (4.30-5.90) m/uL Hgb (13.0-17.5) gm/dL Hct (39.0-53.0) % RDW (11.5-15.5) % Plt Count (150-450) k/uL APTT (22.0-30.0) sec Fibrinogen (200-500) mg/dL Sodium 136 L (137-145) mmol/L Carbon Dioxide 20 L (22-30) mmol/L BUN 42 H (9-20) mg/dL Creatinine 2.14 H (0.66-1.25) mg/dL Glucose 156 H (74-99) mg/dL POC Glucose (mg/dL) 171 H (70-110) mg/dL Calcium 7.9 L (8.4-10.2) mg/dL Iron 14 L (65-175) ug/dL TIBC 203 L (228-460) ug/dL % Saturation 6.70 L (15.00-50.00) Transferrin 145.0 L (204.0-354.0) mg/dL Ferritin 369.0 H (22.0-322.0) ng/mL Vitamin B12 978.0 H (200.0-944.0) pg/mL 10/18/21 10/18/21 10/18/21 Range/Units 06:30 11:30 12:45 RBC 3.04 L (4.30-5.90) m/uL Hgb 8.4 L (13.0-17.5) gm/dL Hct 25.4 L (39.0-53.0) % RDW 21.3 H (11.5-15.5) % Plt Count 111 L (150-450) k/uL APTT 30.2 H (22.0-30.0) sec Fibrinogen 554 H (200-500) mg/dL Sodium (137-145) mmol/L Carbon Dioxide (22-30) mmol/L BUN (9-20) mg/dL Creatinine (0.66-1.25) mg/dL Glucose (74-99) mg/dL POC Glucose (mg/dL) 223 H (70-110) mg/dL Calcium (8.4-10.2) mg/dL Iron (65-175) ug/dL TIBC (228-460) ug/dL % Saturation (15.00-50.00) Transferrin (204.0-354.0) mg/dL Ferritin (22.0-322.0) ng/mL Vitamin B12 (200.0-944.0) pg/mL Microbiology - Last 24 Hours (Table) 10/17/21 03:00 Gram Stain - Preliminary Sputum Sputum Culture - Preliminary Assessment and Plan Plan: Assessment: #1. Acute exacerbation of COPD with likely left lower lobe pneumonia versus tracheal bronchitis. The patient has a copious sputum production, likely infectious in nature. Viral screen came back negative. Currently on IV Rocephin. Currently on DuoNeb nebulized treatments around the clock in addition to IV Solu-Medrol. #2. Acute hypoxic respiratory failure currently on 2 L of nasal cannula #3. Acute shortness of breath secondary to above #4. abdominal pain, findings a CAT scan of the abdomen were nonspecific #5. Chronic kidney disease stage III. #6. Myelofibrosis #7. Hypertension #8. 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 Remote history of pulmonary embolism back in 2011, currently on no antico agulants #10. Obstructive sleep apnea not receiving CPAP therapy #11. BPH #12. Impaired hearing #13. Hyperlipidemia #14. Hypertension #15. Cardiac catheterization with previous stent insertion #16. History of skin cancer #17. Osteoarthritis #18. Abdominal aortic aneurysm, slight increase in size based on the CAT scan findings #19. Nephrolithiasis #20. Migraines #21. Impression fraction of the lower spine Plan: Continue current medical treatment Continue antibiotics, IV steroids and breathing treatments We will results of the final sputum culture We'll continue to follow his clinical course I have personally seen and examined the patient, performed the documentation and the assessment and plan as written. Number of minutes spent on the visit: [10] Time with Patient: Less than 30
[2021-10-18 16:09] LABS: Glucose,Whole Blood 179 mg/dL (70-110)
[2021-10-18] MEDS: INSULIN ASPART (NovoLOG) 100 UNIT/ML VIAL SQ SCH ×2 (16:58→21:07)
--- NOTE | 2021-10-18 17:26 | P.GSCN ---
History of Present Illness Consult date: 10/18/21 Reason for Consult: Anemia, GI bleed History of present illness: This 81-year-old male admitted to Dr. Goyal service patient was found to be a nemic. Patient denies any gross GI bleed. He is currently tolerating regular diet Past Medical History Past Medical History: Cancer, Chest Pain / Angina, COPD, GERD/Reflux, Hearing Disorder / Deafness, Hyperlipidemia, Hypertension, Myocardial Infarction (ID), Osteoarthritis (OA), Prostate Disorder, Pulmonary Embolus (PE) Additional Past Medical History / Comment(s): Interstitial lung disease, pulmonary fibrosis, PE in 2011-pt cannot recall laterality, past home O2 use but none now, RIANA-cannot tolerate Cpap, prostate cancer with radiation treatment, skin cancer with removals, nephrolithiasis, migraines, compression fracture low back, bilateral elbow fractures with surgery, PUD, jaundiced as a child, [place] [employer] bilaterally. "mild" ID in january 2020.Myelofibrosis Last Myocardial Infarction Date:: January 2020 History of Any Multi-Drug Resistant Organisms: None Reported Past Surgical History: Appendectomy, Cholecystectomy, Heart Catheterization, Heart Catheterization With Stent, Hernia Repair, Joint Replacement, Orthopedic Surgery Additional Past Surgical History / Comment(s): Prostate biopsy, L hand partial amp of 2 fingers, L knee ACL repair, R knee arthroscopy, bilateral total elbow replacements per pt, bilateral cataract removals, L inguinal hernia repair, cardiac caths x 2, EGD, colonoscopy, skin cancer removals. Past Anesthesia/Blood Transfusion Reactions: No Reported Reaction Date of Last Stent Placement:: January 2020. Past Psychological History: Anxiety, Depression Smoking Status: Former smoker Past Alcohol Use History: None Reported Past Drug Use History: None Reported - Past Family History Brother(s) Family Medical History: Cancer Additional Family Medical History / Comment(s): ONE BROTHER HAD LUNG CA & ANOTHER HAD MELANOMA. Brother just recently last week. Mother Family Medical History: AICD/Pacemaker Father Family Medical History: No Reported History Sister(s) Family Medical History: No Reported History Medications and Allergies Home Medications Medication Instructions Recorded Confirmed Type Pantoprazole Sodium [Protonix] 40 mg PO DAILY 03/08/16 10/16/21 History Vit C/E/Zn/Coppr/Lutein/Zeaxan 1 cap PO HS 12/12/18 10/16/21 History [Preservision Areds 2 Softgel] Sucralfate [Carafate] 1 gm PO AC-TID 07/16/21 10/16/21 History carvediloL [Coreg*] 12.5 mg PO BID 07/16/21 10/16/21 History lidocaine HCL [lidocaine HCL 5 ml MUCOUS MEM QID PRN 07/16/21 10/16/21 History Viscous] Isosorbide Mononitrate ER [Imdur] 30 mg PO DAILY #30 tablet 07/18/21 10/16/21 Rx Cholecalciferol [Vitamin D3 (25 25 mcg PO HS 08/18/21 10/16/21 History Mcg = 1000 Iu)] Ergocalciferol (Vitamin D2) 1,250 mcg PO FR 08/18/21 10/16/21 History [Drisdol (50,000 Iu)] Super B Complex 1 tab PO HS 08/18/21 10/16/21 History Acetaminophen Tab [Tylenol] 650 mg PO Q6HR PRN tab 08/19/21 10/16/21 Rx Dicyclomine HCl 10 mg PO Q8H PRN 10/16/21 10/16/21 History Diphenoxylate HCl/Atropine 1 tab PO DAILY 10/16/21 10/16/21 History [Lomotil 2.5-0.025 mg Tablet] LORazepam [Ativan] 0.5 mg PO TID 10/16/21 10/16/21 History Lansoprazole [Prevacid 24Hr] 15 mg PO DAILY 10/16/21 10/16/21 History Ruxolitinib Phosphate [Jakafi] 5 mg PO BID 10/16/21 10/16/21 History amLODIPine [Norvasc] 5 mg PO DAILY 10/16/21 10/16/21 History hydrALAZINE HCL [Apresoline] 10 mg PO TID-W/MEALS 10/16/21 10/16/21 History Allergies Allergy/AdvReac Type Severity Reaction Status Date / Time alprazolam [From Xanax] AdvReac Confusion Verified 10/16/21 01:08 Surgical - Exam Vital Signs Temp Pulse Resp BP Pulse Ox 98 F 108 H 20 183/104 92 L 10/16/21 01:06 10/16/21 01:06 10/16/21 01:06 10/16/21 01:06 10/16/21 01:06 - General well developed, well nourished, no distress - Eyes PERRL - ENT normal pinna - Neck no masses - Respiratory normal expansion - Cardiovascular Rhythm: regular - Abdomen Abdomen: soft, non tender Results - Labs 10/18/21 06:30 10/18/21 06:30 Abnormal Lab Results - Last 24 Hours (Table) 10/17/21 10/18/21 10/18/21 Range/Units 08:09 06:13 06:30 RBC (4.30-5.90) m/uL Hgb (13.0-17.5) gm/dL Hct (39.0-53.0) % RDW (11.5-15.5) % Plt Count (150-450) k/uL APTT (22.0-30.0) sec Fibrinogen (200-500) mg/dL Sodium 136 L (137-145) mmol/L Carbon Dioxide 20 L (22-30) mmol/L BUN 42 H (9-20) mg/dL Creatinine 2.14 H (0.66-1.25) mg/dL Glucose 156 H (74-99) mg/dL POC Glucose (mg/dL) 171 H (70-110) mg/dL Calcium 7.9 L (8.4-10.2) mg/dL Iron 14 L (65-175) ug/dL TIBC 203 L (228-460) ug/dL % Saturation 6.70 L (15.00-50.00) Transferrin 145.0 L (204.0-354.0) mg/dL Ferritin 369.0 H (22.0-322.0) ng/mL Vitamin B12 978.0 H (200.0-944.0) pg/mL 10/18/21 10/18/21 10/18/21 Range/Units 06:30 11:30 12:45 RBC 3.04 L (4.30-5.90) m/uL Hgb 8.4 L (13.0-17.5) gm/dL Hct 25.4 L (39.0-53.0) % RDW 21.3 H (11.5-15.5) % Plt Count 111 L (150-450) k/uL APTT 30.2 H (22.0-30.0) sec Fibrinogen 554 H (200-500) mg/dL Sodium (137-145) mmol/L Carbon Dioxide (22-30) mmol/L BUN (9-20) mg/dL Creatinine (0.66-1.25) mg/dL Glucose (74-99) mg/dL POC Glucose (mg/dL) 223 H (70-110) mg/dL Calcium (8.4-10.2) mg/dL Iron (65-175) ug/dL TIBC (228-460) ug/dL % Saturation (15.00-50.00) Transferrin (204.0-354.0) mg/dL Ferritin (22.0-322.0) ng/mL Vitamin B12 (200.0-944.0) pg/mL 10/18/21 Range/Units 16:06 RBC (4.30-5.90) m/uL Hgb (13.0-17.5) gm/dL Hct (39.0-53.0) % RDW (11.5-15.5) % Plt Count (150-450) k/uL APTT (22.0-30.0) sec Fibrinogen (200-500) mg/dL Sodium (137-145) mmol/L Carbon Dioxide (22-30) mmol/L BUN (9-20) mg/dL Creatinine (0.66-1.25) mg/dL Glucose (74-99) mg/dL POC Glucose (mg/dL) 179 H (70-110) mg/dL Calcium (8.4-10.2) mg/dL Iron (65-175) ug/dL TIBC (228-460) ug/dL % Saturation (15.00-50.00) Transferrin (204.0-354.0) mg/dL Ferritin (22.0-322.0) ng/mL Vitamin B12 (200.0-944.0) pg/mL Microbiology - Last 24 Hours (Table) 10/17/21 03:00 Gram Stain - Preliminary Sputum Sputum Culture - Preliminary Diabetes panel 10/18/21 Range/Units 06:30 Sodium 136 L (137-145) mmol/L Potassium 4.0 (3.5-5.1) mmol/L Chloride 107 (98-107) mmol/L Carbon Dioxide 20 L (22-30) mmol/L BUN 42 H (9-20) mg/dL Creatinine 2.14 H (0.66-1.25) mg/dL Glucose 156 H (74-99) mg/dL Calcium 7.9 L (8.4-10.2) mg/dL Calcium panel 10/18/21 Range/Units 06:30 Calcium 7.9 L (8.4-10.2) mg/dL Pituitary panel 10/18/21 Range/Units 06:30 Sodium 136 L (137-145) mmol/L Potassium 4.0 (3.5-5.1) mmol/L Chloride 107 (98-107) mmol/L Carbon Dioxide 20 L (22-30) mmol/L BUN 42 H (9-20) mg/dL Creatinine 2.14 H (0.66-1.25) mg/dL Glucose 156 H (74-99) mg/dL Calcium 7.9 L (8.4-10.2) mg/dL Adrenal panel 10/18/21 Range/Units 06:30 Sodium 136 L (137-145) mmol/L Potassium 4.0 (3.5-5.1) mmol/L Chloride 107 (98-107) mmol/L Carbon Dioxide 20 L (22-30) mmol/L BUN 42 H (9-20) mg/dL Creatinine 2.14 H (0.66-1.25) mg/dL Glucose 156 H (74-99) mg/dL Calcium 7.9 L (8.4-10.2) mg/dL Assessment and Plan Assessment: Anemia with possible occult GI bleed. Patient will undergo colonoscopy/EGD when medically stable.
[2021-10-18 18:33] LABS: Immunoglobulin A 95.3 mg/dL (60.0-350.0); Immunoglobulin M 52.9 mg/dL (40.0-280.0)
[2021-10-18 20:20] LABS: Glucose,Whole Blood 163 mg/dL (70-110)
--- NOTE | 2021-10-18 20:43 | P.CONS ---
History of Present Illness - Reason for Consult Consult date: 10/18/21 Sridhar Requesting physician: Barrington Goyal Jr - History of Present Illness 81-year-old male patient well known to me, known history of myelofibrosis who is well known to our practice. The patient is dependent on O2 at home. CAT scan of the abdomen that showed nonobstructive bilateral renal calculi and right renal atrophy and abdominal aortic aneurysm that has slightly increased in size and moderate splenomegaly without any interval change. The patient was discharged home and represented with worsening shortness of breath, productive cough and hypoxia. COVID 19 testing and influenza screen was negative. Pulmonary Management and continues on IV Rocephin, IV Solu Medrol 60 mg every 6 hours. Jakafi on hold. Anemia with LDH over 1999, no evidence of hemolysis, DIC, possible Blood loss and surgery has been consulted for this. Mr Ward is a pleasant white male with multiple medical problems. These include a history of hypertension, coronary artery disease, and hypercholest erolemia. The patient was admitted to the hospital in 02/02 for CA, requiring stenting. labs revealed that admission showed creatinine of 1.95, with hemoglobin of 11.5, WBC 8.9 and platelets 209. The patient was subsequently found to have BENIGNO positivity. He was referred to rheumatology, and labs done on 02/24/20 showed elevated kappa light chain at 77.7 mg/L as well as elevated lambda light chain at to 3.4 mg/L with a ratio 2.33, upper limit of normal being 1.65. The patient also had a 15% monoclonal spike on immunofixation results are not available to us. He was therefore referred here for further evaluation and recommendations. He has a history of prostate cancer, treated with radiation, in 2019 currently in complete remission according to him. Hemoglobin on 02/24/20 was 11.5, with other indices essentially normal. Iron studies were also normal. In 01/03, ultrasound of the KUB had revealed enlarged spleen at 18.[address] brain without contrast in 02/02 had shown age-related changes. Ultrasound KUB in 02/02 had shown splenomegaly again, as well as nonobstructing right renal calculi. 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 Both light chains were again elevated in the serum, with ratio 2.11. Light chains were also elevated in the urine with ratio normal. No measurable M protein was noted in the urine or serum. he was therefore placed on observation The patient was admitted to the hospital in early 05/06 with accidental fall and right hip fracture. He underwent right hemiarthroplasty. Hemoglobin had dropped during his hospitalization to 8.7. He was discharged on oral iron. the patient was admitted again in early 10/04 because of shortness of breath, after starting Brillinta. During that admission, splenomegaly was noted to be more prominent on physical exam. CBC also showed a mild left shift with small number of myelocytes and metamyelocytes. Protein electrophoresis studies and CBC however showed no change compared to before. post discharge, the patient had a directed ultrasound of the spleen which sh owed size of 16.9 cm, versus 20.8 cm noted on prior KUB ultrasound in 02/02. Protein electrophoresis studies showed no progression. WBC differential and peripheral smear review showed a fairly mild left shift. Ultrasound also consistently showed heterogenous appearing liver. therefore it was felt that the patient had splenomegaly due to chronic liver disease. However on further follow-up he continued to have progressive enlargement of the spleen, as well as intermittent WBC elevations with intermittent left shift. Therefore at his visit on 01/11/21, he had MPD related mutations tested. This was positive for INEZ 2 [id number] mmutation, confirming primary myeloproliferative disorder. Based on his clinical situation myelofibrosis appeared to be most likely. This was discussed with the patient and he was subsequently, ultimately agreeable to have a bone marrow aspiration biopsy that was performed on 02/26/21. This confirmed primary myelofibrosis. He also had MDS FISH performed that was negative. The pt was recommended [facility]. he left for [place] in the winter in early 04/05 and started the medication there. He also established with an oncologist there. the patient states that he is tolerating the medication well without any subjective side effects. However he did experience a drop in hemoglobin and states that he was started on some shots by his oncologist in [place]. records were subsequently obtained showing that the patient had actually been started on Inrebec. He had also been receiving adequate 20,000 units subcutaneous every week. 07/14/21-Pt here for f/u. He was on inrebic for about 3 mo, he was taken off for inability swallow 1 week ago. Apr 27 started it in [facility] and did well until recently. Pt has had similar symptoms before but not this severe. He states he had an EGD with Dr. Arceo, can't remember why, but denied any diagnosis treatment after. He points to the upper chest/lower throat when he is describing the "burning" pain, happens when he swallows. He denies fever, nausea, vomiting, hematemesis, cough, abd pain, acute changes in bowel habits, black or bloody stool. He is VERY tired, has no energy, Hgb is 8 today. He states in [facility] he was started on a blood booster shot, he was also going to have a port placed. as above. The patient did stop his regimen as he was told that the sore throat was decided to that. However we were unable to find definite documentation of that in the literature. the patient states that his sore throat did improve with holding the medication. He started back on his regimen on 07/22/21. He started back on FELICIA, with some delay due to insurance issues, on 07/28/21. He states that since starting back on Inrebic, he has had rapidly progressive fatigue to where he has difficulty in even walking to the bathroom. Over the past couple of days he has had episodes of right-sided abdominal pain with at least 1 episode of large volume diarrhea. Thus Inrebic was held after his visit in early 08/05. 08/10/21-In f/u today pt remains off of inrebic. He c/o "ain't got no air", just saw Pulmonolgist who states its because of anemia-pt has been anemic since [facility] in Apr. Stomach pain, hasn't taken anything for it, he stopped the carafate. He cont to be depressed and wants to feel better. We reviewed his CT AP which confirmed that his spleen has increased in size about 6cm, we discussed likely disease progression. He wants to know when he is going to . As above. As the patient appeared to be having progression of splenomegaly again, Jakafi was ordered. He was admitted to the hospital on 08/18/21, with anxiety, depression, decreased appetite and dehydration. He was seen by psychiatry and meds adjusted 08/31/21-Pt here today for willard edu. He is still having c/o SOB, weakness, has trouble sleeping, he is having stool urgency, he is seeing Dr. Arceo next week for Rt abd pain and the bowel issue. He denies black or bloody stool. Still having LUQ fullness-has big spleen. He started Jakafi 5 mg Po BID on 09/01/21 He denied any fevers/chills/nausea vomiting. he states that since starting the medication, he has some intermittent headaches. His main complaint is abdominal cramps which can be quite painful, as well as urgency with bowel mov ements. He states that the bowel movements themselves are mostly formed. He has had accidents as a result and is quite upset about the same. He states that oral intake is better as he now has Meals on Wheels and is careful about fluids.hhowever eating is hampered by fear of abdominal cramps and bowel urgency. He also reports compliance with his PPI and Carafate. He had a hospital admission for left-sided chest discomfort in early 08/05 with workup, including stress test negative. He had a stress test in 02/03 which she states was normal. he had been having some indigestion and dyspepsia which is markedly improved since starting PPI and Carafate, and subsequently with lactose avoidance. No new bone pain noted. Review of systems otherwise as per HPI and negative out of 10 Last Seen 09/27/21: the patient reports good compliance with this regimen. He is having GI side effects as noted. He is quite upset with the same as this is limiting his ability to go out of the house. He continues on FELICIA. Hemoglobin was satisfactory at 10.1. Platelets and WBC were normal. - He also has had a response in terms of his splenomegaly which is markedly reduced on physical exam. - Check labs - The patient was given a prescription for Lomotil by his PCP which she is taking sparingly. He was advised to start taking it twice a day on a regular basis and additionally up to twice a day when necessary. We also discussed that options after his current regimen would be quite limited for treating his underlying disease. Therefore aggressive supportive care, as discussed above, was recommended. - Continue Jakafi Review of Systems All systems: negative Constitutional: Reports as per HPI Past Medical History Past Medical History: Cancer, Chest Pain / Angina, COPD, GERD/Reflux, Hearing Disorder / Deafness, Hyperlipidemia, Hypertension, Myocardial Infarction (CA), Osteoarthritis (OA), Prostate Disorder, Pulmonary Embolus (PE) Additional Past Medical History / Comment(s): Interstitial lung disease, pulmonary fibrosis, PE in 2012-pt cannot recall laterality, past home O2 use but none now, RIANA-cannot tolerate Cpap, prostate cancer with radiation treatment, skin cancer with removals, nephrolithiasis, migraines, compression fracture low back, bilateral elbow fractures with surgery, PUD, jaundiced as a child, [place] bilaterally. "mild" CA in january 2020.Myelofibrosis Last Myocardial Infarction Date:: January 2020 History of Any Multi-Drug Resistant Organisms: None Reported Past Surgical History: Appendectomy, Cholecystectomy, Heart Catheterization, Heart Catheterization With Stent, Hernia Repair, Joint Replacement, Orthopedic Surgery Additional Past Surgical History / Comment(s): Prostate biopsy, L hand partial amp of 2 fingers, L knee ACL repair, R knee arthroscopy, bilateral total elbow replacements per pt, bilateral cataract removals, L inguinal hernia repair, cardiac caths x 2, EGD, colonoscopy, skin cancer removals. Past Anesthesia/Blood Transfusion Reactions: No Reported Reaction Date of Last Stent Placement:: January 2020. Past Psychological History: Anxiety, Depression Smoking Status: Former smoker Past Alcohol Use History: None Reported Past Drug Use History: None Reported - Past Family History Brother(s) Family Medical History: Cancer Additional Family Medical History / Comment(s): ONE BROTHER HAD LUNG CA & ANOTHER HAD MELANOMA. Brother just recently last week. Mother Family Medical History: AICD/Pacemaker Father Family Medical History: No Reported History Sister(s) Family Medical History: No Reported History Medications and Allergies Home Medications Medication Instructions Recorded Confirmed Type Pantoprazole Sodium [Protonix] 40 mg PO DAILY 03/08/16 10/16/21 History Vit C/E/Zn/Coppr/Lutein/Zeaxan 1 cap PO HS 12/12/18 10/16/21 History [Preservision Areds 2 Softgel] Sucralfate [Carafate] 1 gm PO AC-TID 07/16/21 10/16/21 History carvediloL [Coreg*] 12.5 mg PO BID 07/16/21 10/16/21 History lidocaine HCL [lidocaine HCL 5 ml MUCOUS MEM QID PRN 07/16/21 10/16/21 History Viscous] Isosorbide Mononitrate ER [Imdur] 30 mg PO DAILY #30 tablet 07/18/21 10/16/21 Rx Cholecalciferol [Vitamin D3 (25 25 mcg PO HS 08/18/21 10/16/21 History Mcg = 1000 Iu)] Ergocalciferol (Vitamin D2) 1,250 mcg PO FR 08/18/21 10/16/21 History [Drisdol (50,000 Iu)] Super B Complex 1 tab PO HS 08/18/21 10/16/21 History Acetaminophen Tab [Tylenol] 650 mg PO Q6HR PRN tab 08/19/21 10/16/21 Rx Dicyclomine HCl 10 mg PO Q8H PRN 10/16/21 10/16/21 History Diphenoxylate HCl/Atropine 1 tab PO DAILY 10/16/21 10/16/21 History [Lomotil 2.5-0.025 mg Tablet] LORazepam [Ativan] 0.5 mg PO TID 10/16/21 10/16/21 History Lansoprazole [Prevacid 24Hr] 15 mg PO DAILY 10/16/21 10/16/21 History Ruxolitinib Phosphate [Jakafi] 5 mg PO BID 10/16/21 10/16/21 History amLODIPine [Norvasc] 5 mg PO DAILY 10/16/21 10/16/21 History hydrALAZINE HCL [Apresoline] 10 mg PO TID-W/MEALS 10/16/21 10/16/21 History Allergies Allergy/AdvReac Type Severity Reaction Status Date / Time alprazolam [From Xanax] AdvReac Confusion Verified 10/16/21 01:08 Physical Exam Vitals: Vital Signs Temp Pulse Resp BP Pulse Ox 10/18/21 11:25 97.8 F 72 28 H 137/54 94 L 10/18/21 08:52 97.7 F 73 20 130/62 93 L 10/18/21 08:00 20 10/18/21 03:13 97.5 F L 70 18 132/60 93 L 10/18/21 02:00 70 18 10/17/21 23:36 98.2 F 70 18 104/40 92 L 10/17/21 20:00 79 18 10/17/21 19:45 98.1 F 79 18 129/56 92 L 07/04/22 15:51 98.1 F 91 19 110/64 95 Intake and Output 10/17/21 10/18/21 10/18/21 22:59 06:59 14:59 Intake Total 0 0 Output Total 500 650 Balance -500 -650 0 Intake: Oral 0 0 Output: Urine 400 550 Stool 100 100 Other: Voiding Method Urinal Urinal Diaper Diaper # Voids 1 # Bowel Movements 1 1 - Constitutional General appearance: cooperative, no acute distress - EENT Eyes: EOMI ENT: NA/AT - Neck Neck: normal ROM - Respiratory Respiratory: bilateral: CTA - Cardiovascular Rhythm: regularly irregular - Gastrointestinal General gastrointestinal: distended, organomegaly - Integumentary Integumentary: pale - Musculoskeletal Musculoskeletal: generalized weakness - Psychiatric Psychiatric: A&O x's 3 Results CBC & Chem 7: 10/18/21 06:30 10/18/21 06:30 Labs: Abnormal Lab Results - Last 24 Hours (Table) 10/17/21 10/18/21 10/18/21 Range/Units 08:09 06:13 06:30 RBC (4.30-5.90) m/uL Hgb (13.0-17.5) gm/dL Hct (39.0-53.0) % RDW (11.5-15.5) % Plt Count (150-450) k/uL Sodium 136 L (137-145) mmol/L Carbon Dioxide 20 L (22-30) mmol/L BUN 42 H (9-20) mg/dL Creatinine 2.14 H (0.66-1.25) mg/dL Glucose 156 H (74-99) mg/dL POC Glucose (mg/dL) 171 H (70-110) mg/dL Calcium 7.9 L (8.4-10.2) mg/dL Iron 14 L (65-175) ug/dL TIBC 203 L (228-460) ug/dL % Saturation 6.70 L (15.00-50.00) Transferrin 145.0 L (204.0-354.0) mg/dL Ferritin 369.0 H (22.0-322.0) ng/mL Vitamin B12 978.0 H (200.0-944.0) pg/mL 10/18/21 10/18/21 Range/Units 06:30 11:30 RBC 3.04 L (4.30-5.90) m/uL Hgb 8.4 L (13.0-17.5) gm/dL Hct 25.4 L (39.0-53.0) % RDW 21.3 H (11.5-15.5) % Plt Count 111 L (150-450) k/uL Sodium (137-145) mmol/L Carbon Dioxide (22-30) mmol/L BUN (9-20) mg/dL Creatinine (0.66-1.25) mg/dL Glucose (74-99) mg/dL POC Glucose (mg/dL) 223 H (70-110) mg/dL Calcium (8.4-10.2) mg/dL Iron (65-175) ug/dL TIBC (228-460) ug/dL % Saturation (15.00-50.00) Transferrin (204.0-354.0) mg/dL Ferritin (22.0-322.0) ng/mL Vitamin B12 (200.0-944.0) pg/mL Microbiology - Last 24 Hours (Table) 10/17/21 03:00 Gram Stain - Preliminary Sputum Sputum Culture - Preliminary Assessment and Plan (1) Pneumonia Narrative/Plan: - Pulmonary following and managing - IV Abx Current Visit: Yes Status: Acute Code(s): J18.9 - PNEUMONIA, UNSPECIFIED ORGANISM SNOMED Code(s): 923731768 (2) CKD (chronic kidney disease), stage III Narrative/Plan: -Nephrology is following Current Visit: No Status: Acute Code(s): N18.30 - CHRONIC KIDNEY DISEASE, STAGE 3 UNSPECIFIED SNOMED Code(s): 070109162 (3) COPD (chronic obstructive pulmonary disease) Current Visit: No Status: Acute Code(s): J44.9 - CHRONIC OBSTRUCTIVE PULMONARY DISEASE, UNSPECIFIED SNOMED Code(s): 47314581 (4) Myelofibrosis Narrative/Plan: Hold Jakafi with active infection/Inflam picture Current Visit: No Status: Acute Code(s): D75.81 - MYELOFIBROSIS SNOMED Code(s): 89875011 (5) MGUS (monoclonal gammopathy of unknown significance) Narrative/Plan: Stable Current Visit: No Status: Chronic Priority: Medium Code(s): D47.2 - MONOCLONAL GAMMOPATHY SNOMED Code(s): 641072948 (6) Splenomegaly Narrative/Plan: Secondary to myelofibrosis Current Visit: No Status: Chronic Priority: Medium Code(s): R16.1 - SPLENOMEGALY, NOT ELSEWHERE CLASSIFIED SNOMED Code(s): 66956037 (7) Thrombocytopenia Narrative/Plan: - Check Coags - Monitor daily - Decreased since admission likely related to infectious/inflammatory and abx - Monitor DIC, Current Visit: Yes Status: Acute Code(s): D69.6 - THROMBOCYTOPENIA, UNSPECIFIED SNOMED Code(s): 895582930 (8) Microcytic anemia Narrative/Plan: Baseline is hg 9-10, decreased during hospitalization likely from inflammation, dilution, but confirm no active bleed. - Ferritin is increased, therefore parental iron may not be beneficial at this time, although if active bleeding is seen would continue. - If suspicion of a systemic infection, hold off on parental iron. - Anemia with LDH over 1999, no evidence of hemolysis, DIC, possible Blood loss and surgery has been consulted for this. Current Visit: Yes Status: Acute Code(s): D50.9 - IRON DEFICIENCY ANEMIA, UNSPECIFIED SNOMED Code(s): 240380346
[2021-10-18] MEDS: VIT A,C & E-LUTEIN-MINERALS 1 EACH TAB PO SCH (21:00)
[2021-10-19 06:14] LABS: Glucose,Whole Blood 168 mg/dL (70-110)
[2021-10-19] MEDS: methylPREDNISolone SOD SUCCI 125 MG/2 ML VIAL IV SCH (06:49)
[2021-10-19] MEDS: PANTOPRAZOLE 40 MG TABLET PO SCH (06:50)
[2021-10-19] MEDS: SUCRALFATE 1 GM TAB PO SCH ×3 (06:50→15:22)
[2021-10-19] MEDS: INSULIN ASPART (NovoLOG) 100 UNIT/ML VIAL SQ SCH ×4 (06:50→20:39)
[2021-10-19] MEDS: hydrALAZINE HCL 10 MG TAB PO SCH ×3 (06:50→15:23)
[2021-10-19] MEDS: SODIUM CHLORIDE 0.9% 1,000 ML IV SCH ×2 (06:50→08:06)
[2021-10-19] MEDS: LORazepam 0.5 MG TAB PO SCH ×3 (08:05→20:39)
[2021-10-19] MEDS: ISOSORBIDE MONONITRATE ER 60 MG TAB.ER.24H PO SCH (08:05)
[2021-10-19] MEDS: ASPIRIN 81 MG PO SCH (08:05)
[2021-10-19] MEDS: amLODIPine 5 MG TAB PO SCH (08:06)
[2021-10-19] MEDS: carvediloL 12.5 MG TAB PO SCH ×2 (08:06→20:39)
[2021-10-19 08:14] LABS: Anisocytosis Moderate; HCT 26.7 % (39.0-53.0); HGB 8.9 gm/dL (13.0-17.5); Hypochromasia Slight; MCH 27.9 pg (25.0-35.0); MCHC 33.3 g/dL (31.0-37.0); Mean Platelet Volume 12.2; Microcytosis Slight; Platelet Count 120 k/uL (150-450); Poikilocytosis Slight; RBC 3.18 m/uL (4.30-5.90); RDW 20.8 % (11.5-15.5)
[2021-10-19] MEDS: SYMBICORT 160-4.5 MCG INHALER INHALATION SCH ×2 (08:24→19:30)
[2021-10-19 08:34] LABS: Albumin 3.3 g/dL (3.5-5.0); Calcium 8.3 mg/dL (8.4-10.2); Magnesium 2.6 mg/dL (1.6-2.3); Potassium 3.8 mmol/L (3.5-5.1); Total Protein 5.7 g/dL (6.3-8.2)
[2021-10-19] MEDS: SODIUM FERRIC GLUCONAT-SUCROSE 125 MG in SODIUM CHLORIDE 0.9% 100 ML IVPB SCH (09:11)
[2021-10-19 09:43] LABS: Band Neutrophils % 4 %; Eosinophils # (M) 0.06 k/uL (0-0.7); Lymphocytes # (M) 0.25 k/uL (1.0-4.8); Monocytes # (M) 0.19 k/uL (0-1.0); Myelocytes # (M) 0.25 k/uL (0); Myelocytes % 4 %; Neutrophils % (M) 85 %; Nucleated Red Blood Cells 3 /100 WBC (0-0); Total Cells Counted 200; WBC 6.2 k/uL (3.8-10.6)
[2021-10-19 09:47] LABS: Polychromasia Present; Tear Drop Cells Present
--- NOTE | 2021-10-19 09:47 | CA ---
Transthoracic Echo Report Name: Sergey Ward Age: 81 Gender: M : 1940 Exam Date: 10/18/2021 11:48 Exam Location: [facility] Ht (in): 72 Wt (lb): 162 Ordering Physician: Mansi Castillo MD ([id number]) Attending/Referring Phys: Rn Infusion Iram Dolan RDCS Procedure CPT: Indications: CAD Cardiac Hx: Technical Quality: Fair Contrast 1: Total Dose (mL): Contrast 2: Total Dose (mL): MEASUREMENTS (Male / Female) Normal Values 2D ECHO LV Diastolic Diameter PLAX 5.1 cm 4.2 - 5.9 / 3.9 - 5.3 cm LV Systolic Diameter PLAX 3.2 cm IVS Diastolic Thickness 1.6 cm 0.6 - 1.0 / 0.6 - 0.9 cm LVPW Diastolic Thickness 1.7 cm 0.6 - 1.0 / 0.6 - 0.9 cm LV Relative Wall Thickness 0.6 RV Internal Dim ED PLAX 3.1 cm LA Volume 96.4 cm??? 18 - 58 / 22 - 52 cm??? M-MODE Aortic Root Diameter MM 3.6 cm LA Systolic Diameter MM 4.1 cm LA Ao Ratio MM 1.1 AV Cusp Separation MM 1.2 cm DOPPLER AV Peak Velocity 145.5 cm/s AV Peak Gradient 8.5 mmHg LVOT Peak Velocity 95.9 cm/s LVOT Peak Gradient 3.7 mmHg MV Area PHT 4.0 cm??? Mitral E Point Velocity 142.7 cm/s Mitral A Point Velocity 114.3 cm/s Mitral E to A Ratio 1.2 MV Deceleration Time 189.2 ms MV E' Velocity 7.1 cm/s Mitral E to MV E' Ratio 20.1 TR Peak Velocity 311.3 cm/s TR Peak Gradient 38.8 mmHg Right Ventricular Systolic Press 43.6 mmHg FINDINGS Left Ventricle Moderately increased left ventricular wall thickness. Normal left ventricular systolic function with no obvious regional wall motion abnormalities. Left ventricular ejection fraction is estimated at 55-60%. Right Ventricle Normal right ventricular size. Mild pulmonary hypertension. Right Atrium Normal right atrial size. Left Atrium Severely increased left atrial volume. No evidence for an atrial septal defect. Mitral Valve Mild mitral annular calcification. Moderate mitral regurgitation. Aortic Valve Aortic valve sclerosis. No aortic valve stenosis or regurgitation. Tricuspid Valve [id number] tricuspid regurgitation. Pulmonic Valve Trace pulmonic regurgitation. Pericardium No pericardial effusion. Aorta Normal size aortic root and proximal ascending aorta. CONCLUSIONS Normal left ventricular dimension and systolic function. Concentric left ventricular hypertrophy [place] mitral regurgitation with a posteriorly directed jet Previewed by: Dr. Tate Peterson MD (Electronically Signed) Final Date: 19 October 2021 09:46
[2021-10-19 09:48] LABS: Large Platelets Present; Ovalocytes Present
--- NOTE | 2021-10-19 10:34 | P.PN ---
Subjective Patient is seen in follow-up for acute kidney injury and chronic kidney disease. Renal function improving. Has been voiding. Had diarrhea last night. Receiving IV fluids. Tolerating oral intake. Vital signs are stable. General: Awake. No acute distress. HEENT: Head exam is unremarkable. LUNGS: Breath sounds decreased. HEART: Rate and Rhythm are regular. ABDOMEN: Soft, no distention. Nontender. EXTREMITITES: No edema. Objective - Vital Signs Vital signs: Vital Signs Temp 98.4 F 10/19/21 08:00 Pulse 83 10/19/21 08:00 Resp 18 10/19/21 08:00 BP 165/54 10/19/21 08:00 Pulse Ox 93 L 10/19/21 08:00 FiO2 Intake & Output 10/18/21 10/19/21 10/19/21 18:59 06:59 18:59 Intake Total 120 Output Total 125 100 Balance -5 -100 Intake: Oral 120 Output: Urine 125 Stool 100 Other: Voiding Method Urinal Diaper # Voids 200 2 # Bowel Movements 1 2 - Labs CBC & Chem 7: 10/19/21 07:37 10/19/21 07:37 Labs: Abnormal Lab Results - Last 24 Hours (Table) 10/18/21 10/18/21 10/18/21 Range/Units 11:30 12:45 16:06 RBC (4.30-5.90) m/uL Hgb (13.0-17.5) gm/dL Hct (39.0-53.0) % RDW (11.5-15.5) % Plt Count (150-450) k/uL Lymphocytes # (Manual) (1.0-4.8) k/uL Myelocytes # (Manual) (0) k/uL Nucleated RBCs (0-0) /100 WBC APTT 30.2 H (22.0-30.0) sec Fibrinogen 554 H (200-500) mg/dL Chloride (98-107) mmol/L BUN (9-20) mg/dL Creatinine (0.66-1.25) mg/dL Glucose (74-99) mg/dL POC Glucose (mg/dL) 223 H 179 H (70-110) mg/dL Calcium (8.4-10.2) mg/dL Magnesium (1.6-2.3) mg/dL Alkaline Phosphatase (38-126) U/L Total Protein (6.3-8.2) g/dL Albumin (3.5-5.0) g/dL 10/18/21 10/19/21 10/19/21 Range/Units 20:18 06:12 07:37 RBC 3.18 L (4.30-5.90) m/uL Hgb 8.9 L (13.0-17.5) gm/dL Hct 26.7 L (39.0-53.0) % RDW 20.8 H (11.5-15.5) % Plt Count 120 L (150-450) k/uL Lymphocytes # (Manual) 0.25 L (1.0-4.8) k/uL Myelocytes # (Manual) 0.25 H (0) k/uL Nucleated RBCs 3 H (0-0) /100 WBC APTT (22.0-30.0) sec Fibrinogen (200-500) mg/dL Chloride (98-107) mmol/L BUN (9-20) mg/dL Creatinine (0.66-1.25) mg/dL Glucose (74-99) mg/dL POC Glucose (mg/dL) 163 H 168 H (70-110) mg/dL Calcium (8.4-10.2) mg/dL Magnesium (1.6-2.3) mg/dL Alkaline Phosphatase (38-126) U/L Total Protein (6.3-8.2) g/dL Albumin (3.5-5.0) g/dL 10/19/21 Range/Units 07:37 RBC (4.30-5.90) m/uL Hgb (13.0-17.5) gm/dL Hct (39.0-53.0) % RDW (11.5-15.5) % Plt Count (150-450) k/uL Lymphocytes # (Manual) (1.0-4.8) k/uL Myelocytes # (Manual) (0) k/uL Nucleated RBCs (0-0) /100 WBC APTT (22.0-30.0) sec Fibrinogen (200-500) mg/dL Chloride 110 H (98-107) mmol/L BUN 39 H (9-20) mg/dL Creatinine 1.99 H (0.66-1.25) mg/dL Glucose 151 H (74-99) mg/dL POC Glucose (mg/dL) (70-110) mg/dL Calcium 8.3 L (8.4-10.2) mg/dL Magnesium 2.6 H (1.6-2.3) mg/dL Alkaline Phosphatase 130 H (38-126) U/L Total Protein 5.7 L (6.3-8.2) g/dL Albumin 3.3 L (3.5-5.0) g/dL Microbiology - Last 24 Hours (Table) 10/17/21 03:00 Gram Stain - Preliminary Sputum Sputum Culture - Preliminary Assessment and Plan Plan: Assessment: 1. Acute kidney injury mostly prerenal from poor intake and diarrhea. Creatinine 2.31 on admission and is 1.99 today. CAT scan done 10/11/2021 showed nonobstructing renal calculi with right renal atrophy. No hydronephrosis noted. 2. 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 UA with 1+ protein. No blood. Patient does have positive BENIGNO and double-stranded DNA antibody. Rest serologies negative. Due to solitary functioning kidney and depressed GFR (<30), kidney biopsy was not done. Patient also refused the biopsy. 3. Abdominal pain and diarrhea. Surgery following. Possible EGD and colonoscopy this admission. 4. Anemia of chronic kidney disease. Stool for occult blood negative. Also noted with thrombocytopenic. Iron deficiency noted. Hematology following. 5. Metabolic acidosis secondary to acute kidney injury. Better. 6. Hypertension with chronic kidney disease. Stable. 7. Pneumonia on antibiotics. 8. History of myelofibrosis. Hematology/oncology following. 9. Moderate MR. Plan: Maintain IV fluids - decrease rate to 50 cc/hr. Maintain IV iron. Avoid nephrotoxins. Continue to monitor renal function and urine output. Would also benefit from rheumatology eval outpatient.
[2021-10-19] MEDS ORDERED: DIPHENOX-ATROP 2.5-0.025 MG 1 EACH TAB PO PRN (11:13)
[2021-10-19 11:35] LABS: Glucose,Whole Blood 158 mg/dL (70-110)
[2021-10-19] MEDS: predniSONE 20 MG TAB PO SCH (11:57)
--- NOTE | 2021-10-19 13:27 | P.PN ---
Subjective This is a 81-year-old male with a known history of CAD s/p stenting of the LAD [place] [address] Ricci, hypertension, pulmonary fibrosis, chronic kidney disease, hyperlipidemia. He follows in the office with Dr. Apple. We have been asked to see patient for elevated troponin.Patient presents with symptoms of severe abdominal discomfort and nausea. He has been under increased amount of stress after the of his in May. He has been complaining of abdominal discomfort, increasing in severity with nausea and vomiting, has been evaluated by Dr. Arceo the past. In the past he had a normal systolic function and has underwent a dobutamine stress test in July 2021 that showed no evidence of inducible ischemia. On presentation his troponin is mildly elevated.Patient could not tolerate in the past any antiplatelets regimen including aspirin because of severe abdominal discomfort. EKG on admission revealed Sinus mechanism with nonspecific ST-T wave changes. 10/19/2021 Patient seen and examined at bedside, no acute distress. Denies any chest pain. Shortness of breath improved. Epigastric pain improved. Surgery evaluated the pa tient and possible EGD/Colonoscopy when medically stable. He has been afebrile, vital signs are stable, 93-94% on 3 L nasal cannula. He has been started on IV ceftriaxone. he is currently maintained on amlodipine 5 mg daily, aspirin 80 mg daily, Coreg 12.5mg twice a day, hydralazine 10 mg 3 times a day, Imdur 60 mg daily Echocardiogram revealed EF 5560 percent, moderate mitral regurgitation PHYSICAL EXAMINATION Vitals Reviewed Head: Normocephalic. Eyes: Sclerae nonicteric. Neck: Good carotid upstroke, no bruit, no jugular venous distention. Lungs: Clear to auscultation. Heart: Regular rate and rhythm, S1-S2, no S3, no rub. Systolic ejection murmur. Abdomen: Soft, epigastric and left upper quadrant tenderness, positive bowel sounds, splenomegaly. Extremities: No edema, intact distal pulses. ASSESSMENT Abdominal discomfort was reproducible epigastric pain, etiology unclear Mild troponin elevation with no chest discomfort. Patient has no clear evidence by EKG or by symptoms to suggest acute cardiac syndrome. He has a known history of CAD and had no evidence of stress-induced ischemia on his dobutamine stress echocardiogram done in July 2021 Chronic kidney disease Anemia Inability to tolerate any antiplatelets Recent episodes of depression and anxiety after the of his Possible pneumonia Anemia PLAN Continue amlodipine, aspirin, Coreg, Imdur Echocardiogram revealed EF 5560 percent, moderate mitral regurgitation No further changes from a cardiology perspective, ok to undergo EGD/Colonoscopy with surgery when indicated. We will follow the patient as needed. Please reconsult if needed. Nurse practitioner note has been reviewed by physician. Signing provider agrees with the documented findings, assessment, and plan of care. Objective - Vital Signs Vital signs: Vital Signs Temp 98.4 F 10/19/21 12:00 Pulse 84 10/19/21 12:00 Resp 18 10/19/21 12:00 BP 119/59 10/19/21 12:00 Pulse Ox 94 L 10/19/21 12:00 FiO2 Intake & Output 10/18/21 10/19/21 10/19/21 18:59 06:59 18:59 Intake Total 120 Output Total 125 200 Balance -5 -200 Intake: Oral 120 Output: Urine 125 Stool 200 Other: Voiding Method Urinal Diaper # Voids 200 2 1 # Bowel Movements 1 2 1 - Labs CBC & Chem 7: 10/19/21 07:37 10/19/21 07:37 Labs: Abnormal Lab Results - Last 24 Hours (Table) 10/18/21 10/18/21 10/18/21 Range/Units 12:45 16:06 20:18 RBC (4.30-5.90) m/uL Hgb (13.0-17.5) gm/dL Hct (39.0-53.0) % RDW (11.5-15.5) % Plt Count (150-450) k/uL Lymphocytes # (Manual) (1.0-4.8) k/uL Myelocytes # (Manual) (0) k/uL Nucleated RBCs (0-0) /100 WBC APTT 30.2 H (22.0-30.0) sec Fibrinogen 554 H (200-500) mg/dL Chloride (98-107) mmol/L BUN (9-20) mg/dL Creatinine (0.66-1.25) mg/dL Glucose (74-99) mg/dL POC Glucose (mg/dL) 179 H 163 H (70-110) mg/dL Calcium (8.4-10.2) mg/dL Magnesium (1.6-2.3) mg/dL Alkaline Phosphatase (38-126) U/L Total Protein (6.3-8.2) g/dL Albumin (3.5-5.0) g/dL 10/19/21 10/19/21 10/19/21 Range/Units 06:12 07:37 07:37 RBC 3.18 L (4.30-5.90) m/uL Hgb 8.9 L (13.0-17.5) gm/dL Hct 26.7 L (39.0-53.0) % RDW 20.8 H (11.5-15.5) % Plt Count 120 L (150-450) k/uL Lymphocytes # (Manual) 0.25 L (1.0-4.8) k/uL Myelocytes # (Manual) 0.25 H (0) k/uL Nucleated RBCs 3 H (0-0) /100 WBC APTT (22.0-30.0) sec Fibrinogen (200-500) mg/dL Chloride 110 H (98-107) mmol/L BUN 39 H (9-20) mg/dL Creatinine 1.99 H (0.66-1.25) mg/dL Glucose 151 H (74-99) mg/dL POC Glucose (mg/dL) 168 H (70-110) mg/dL Calcium 8.3 L (8.4-10.2) mg/dL Magnesium 2.6 H (1.6-2.3) mg/dL Alkaline Phosphatase 130 H (38-126) U/L Total Protein 5.7 L (6.3-8.2) g/dL Albumin 3.3 L (3.5-5.0) g/dL 10/19/21 Range/Units 11:34 RBC (4.30-5.90) m/uL Hgb (13.0-17.5) gm/dL Hct (39.0-53.0) % RDW (11.5-15.5) % Plt Count (150-450) k/uL Lymphocytes # (Manual) (1.0-4.8) k/uL Myelocytes # (Manual) (0) k/uL Nucleated RBCs (0-0) /100 WBC APTT (22.0-30.0) sec Fibrinogen (200-500) mg/dL Chloride (98-107) mmol/L BUN (9-20) mg/dL Creatinine (0.66-1.25) mg/dL Glucose (74-99) mg/dL POC Glucose (mg/dL) 158 H (70-110) mg/dL Calcium (8.4-10.2) mg/dL Magnesium (1.6-2.3) mg/dL Alkaline Phosphatase (38-126) U/L Total Protein (6.3-8.2) g/dL Albumin (3.5-5.0) g/dL Microbiology - Last 24 Hours (Table) 10/17/21 03:00 Gram Stain - Final Sputum Sputum Culture - Final Haemophilus influenzae
--- NOTE | 2021-10-19 13:33 | P.PN ---
Subjective Progress Note Date: 10/19/21 Principal diagnosis: Shortness of breath 81-year-old male patient well known to me, known history of COPD and addition to combination of other medical problems and comorbidities. The patient is dependent on O2 at home. The patient has objective sleep apnea, nontolerant to CPAP therapy and the patient also has a remote history of pulmonary embolism currently on no anticoagulation. Patient also has myelofibrosis for now being treated accordingly. The patient was in the [facility] department. He is back complaining of abdominal pain. The patient's was evaluated on 10/03/2021 and the patient was given a CAT scan of the abdomen that showed nonobstructive bilateral renal calculi and right renal atrophy and abdominal aortic aneurysm that has slightly increased in size and moderate splenomegaly without any interval change. The patient was discharged home and since then the patient is having worsening shortness of breath, congested cough, producing excess amount of mucus and the patient's pulse ox has dropped down to 85% on room air and the patient was placed on 2 L and later on 3 L O2 nasal cannula. He was brought into the hospital. The white cell count is at 5.2 with a hemoglobin of 10.6. There is suspicion for a left lower lobe pneumonia. Electrolytes show a creatinine of 2.3 with a sodium of 138 and a potassium level of 3.9. Troponins of 0.09. UA was positive for protein. COVID 19 testing and influenza screen was negative. The patient is currently on DuoNeb nebulized treatments around the clock, IV Rocephin, IV Solu Medrol 60 mg every 6 hours. On 10/18/2021 patient seen in follow-up on selective care unit. Patient is awake and alert, he states he is feeling much better, breathing much easier. He remains on antibiotics in the form of Rocephin for left lower lobe pneumonia, possibly community-acquired. Has a congested cough, no hemoptysis, he remains on 3 L of oxygen pulse ox is 93%. No fever or chills, no chest discomfort. What is signs have been stable. Yesterday's chest x-ray showed more conspicuous left basilar airspace opacity concerning for pneumonia, and COPD changes. His labs have been reviewed showing white blood cell count of 6.6, hemoglobin of 8.4, sodium is 136, potassium is 4.0, CO2 is 20, BUN is 42, creatinine is 2.14. COVID-19 PCR, influenza A and B were negative. Sputum culture has been sent and showing moderate PMNs, many gram-negative bacilli and a few gram-positive cocci. On 10/19/2021 patient seen in follow-up on selective care unit. He is awake and alert, in no acute distress, resting comfortably in bed, denies any worsening dyspnea or cough, he is complaining of frequent bouts of diarrhea. He continues on antibiotics for left lower lobe pneumonia, his sputum culture was positive for Haemophilus influenza. Generally appears to be in no acute distress other than diarrhea. Last chest x-ray from 10/17/2021 showed left basilar airspace disease. Today's blood work has been reviewed, white blood cell, 6.2, Coumadin is 8.9, platelet count is 120, sodium is 138, chloride is 110, B1 is 39, cre atinine is 1.99. Stool for occult blood was negative. Currently surgical services are pending on EGD and colonoscopy possibly tomorrow for investigation patient's anemia Objective - Vital Signs Vital signs: Vital Signs Temp 98.4 F 10/19/21 12:00 Pulse 84 10/19/21 12:00 Resp 18 10/19/21 12:00 BP 119/59 10/19/21 12:00 Pulse Ox 94 L 10/19/21 12:00 FiO2 Intake & Output 10/18/21 10/19/21 10/19/21 18:59 06:59 18:59 Intake Total 120 Output Total 125 200 Balance -5 -200 Intake: Oral 120 Output: Urine 125 Stool 200 Other: Voiding Method Urinal Diaper # Voids 200 2 1 # Bowel Movements 1 2 1 - Exam GENERAL EXAM: Alert, very pleasant, 81-year-old white male, on 3 L of oxygen pulse ox of 93-94% comfortable in no apparent distress. HEAD: Normocephalic/atraumatic. EYES: Normal reaction of pupils, equal size. Conjunctiva pink, sclera white. NOSE: Clear with pink turbinates. THROAT: No erythema or exudates. NECK: No masses, no JVD, no thyroid enlargement, no adenopathy. CHEST: No chest wall deformity. Symmetrical expansion. LUNGS: Equal air entry with bibasilar crackles CVS: Regular rate and rhythm, normal S1 and S2, no gallops, no murmurs, no rubs ABDOMEN: Soft, nontender. No hepatosplenomegaly, normal bowel sounds, no guarding or rigidity. EXTREMITIES: No clubbing, no edema, no cyanosis, 2+ pulses and upper and lower extremities. MUSCULOSKELETAL: Muscle strength and tone normal. SPINE: No scoliosis or deformity SKIN: No rashes CENTRAL NERVOUS SYSTEM: Alert and oriented -3. No focal deficits, tone is normal in all 4 extremities. PSYCHIATRIC: Alert and oriented -3. Appropriate affect. Intact judgment and insight. - Labs CBC & Chem 7: 10/19/21 07:37 10/19/21 07:37 Labs: Abnormal Lab Results - Last 24 Hours (Table) 10/18/21 10/18/21 10/18/21 Range/Units 12:45 16:06 20:18 RBC (4.30-5.90) m/uL Hgb (13.0-17.5) gm/dL Hct (39.0-53.0) % RDW (11.5-15.5) % Plt Count (150-450) k/uL Lymphocytes # (Manual) (1.0-4.8) k/uL Myelocytes # (Manual) (0) k/uL Nucleated RBCs (0-0) /100 WBC APTT 30.2 H (22.0-30.0) sec Fibrinogen 554 H (200-500) mg/dL Chloride (98-107) mmol/L BUN (9-20) mg/dL Creatinine (0.66-1.25) mg/dL Glucose (74-99) mg/dL POC Glucose (mg/dL) 179 H 163 H (70-110) mg/dL Calcium (8.4-10.2) mg/dL Magnesium (1.6-2.3) mg/dL Alkaline Phosphatase (38-126) U/L Total Protein (6.3-8.2) g/dL Albumin (3.5-5.0) g/dL 10/19/21 10/19/21 10/19/21 Range/Units 06:12 07:37 07:37 RBC 3.18 L (4.30-5.90) m/uL Hgb 8.9 L (13.0-17.5) gm/dL Hct 26.7 L (39.0-53.0) % RDW 20.8 H (11.5-15.5) % Plt Count 120 L (150-450) k/uL Lymphocytes # (Manual) 0.25 L (1.0-4.8) k/uL Myelocytes # (Manual) 0.25 H (0) k/uL Nucleated RBCs 3 H (0-0) /100 WBC APTT (22.0-30.0) sec Fibrinogen (200-500) mg/dL Chloride 110 H (98-107) mmol/L BUN 39 H (9-20) mg/dL Creatinine 1.99 H (0.66-1.25) mg/dL Glucose 151 H (74-99) mg/dL POC Glucose (mg/dL) 168 H (70-110) mg/dL Calcium 8.3 L (8.4-10.2) mg/dL Magnesium 2.6 H (1.6-2.3) mg/dL Alkaline Phosphatase 130 H (38-126) U/L Total Protein 5.7 L (6.3-8.2) g/dL Albumin 3.3 L (3.5-5.0) g/dL 10/19/21 Range/Units 11:34 RBC (4.30-5.90) m/uL Hgb (13.0-17.5) gm/dL Hct (39.0-53.0) % RDW (11.5-15.5) % Plt Count (150-450) k/uL Lymphocytes # (Manual) (1.0-4.8) k/uL Myelocytes # (Manual) (0) k/uL Nucleated RBCs (0-0) /100 WBC APTT (22.0-30.0) sec Fibrinogen (200-500) mg/dL Chloride (98-107) mmol/L BUN (9-20) mg/dL Creatinine (0.66-1.25) mg/dL Glucose (74-99) mg/dL POC Glucose (mg/dL) 158 H (70-110) mg/dL Calcium (8.4-10.2) mg/dL Magnesium (1.6-2.3) mg/dL Alkaline Phosphatase (38-126) U/L Total Protein (6.3-8.2) g/dL Albumin (3.5-5.0) g/dL Microbiology - Last 24 Hours (Table) 10/17/21 03:00 Gram Stain - Final Sputum Sputum Culture - Final Haemophilus influenzae Assessment and Plan Plan: Assessment: #1. Acute exacerbation of COPD with likely left lower lobe pneumonia versus tracheal bronchitis. The patient has a copious sputum production, likely infectious in nature. Viral screen came back negative. Currently on IV Rocephin. Currently on DuoNeb nebulized treatments around the clock in addition to IV Solu-Medrol. #2. Acute hypoxic respiratory failure currently on 3 L of nasal cannula #3. Acute shortness of breath secondary to above #4. Abdominal pain, findings a CAT scan of the abdomen were nonspecific #5. Chronic kidney disease stage III. #6. Myelofibrosis #7. Hypertension #8. 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 Remote history of pulmonary embolism back in 2011, currently on no anticoagulants #10. Obstructive sleep apnea not receiving CPAP therapy #11. BPH #12. Impaired hearing #13. Hyperlipidemia #14. Hypertension #15. Cardiac catheterization with previous stent insertion #16. History of skin cancer #17. Osteoarthritis #18. Abdominal aortic aneurysm, slight increase in size based on the CAT scan findings #19. Nephrolithiasis #20. 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 diff, we'll add Lomotil 1 tab every 6 hours as needed for diarrhea From pulmonary perspective patient is stable for EGD and colonoscopy tomorrow We'll continue to follow his clinical course I have personally seen and examined the patient, performed the documentation and the assessment and plan as written. Number of minutes spent on the visit: [10] Time with Patient: Less than 30
[2021-10-19] MEDS ORDERED: PEG 3350 (236 GM/BTL) + LYTES 4,000 ML BOTTLE PO ONE (13:45)
--- NOTE | 2021-10-19 13:52 | P.PN ---
Subjective Progress Note Date: 10/19/21 CHIEF COMPLAINT: Anemia HISTORY OF PRESENT ILLNESS: Surgical service following regards to patient's anemia. He did have stool positive for occult blood. He reports no evidence of blood in his stools. He did have diarrhea with 5 watery stools yesterday. He reports a decrease in his abdominal discomfort. He is also being followed by pulmonary service for COPD and pneumonia. He has been cleared to proceed with EGD and colonoscopy from pulmonary and cardiology perspective. Afebrile. WBC is 6.2 Hgb is up from 8.4-8.9 platelets 120 sodium 138 potassium 3.8 creatinine 1.99. Iron low at 14 PHYSICAL EXAM: VITAL SIGNS: Reviewed. GENERAL: Well-developed in no acute distress. HEENT: No sclera icterus. Extraocular movements grossly intact. Moist buccal mucosa. Head is atraumatic, normocephalic. ABDOMEN: Soft. Nondistended. Nontender. NEUROLOGIC: Alert and oriented. Cranial nerves II through XII grossly intact. ASSESSMENT: 1. Anemia with stool positive for occult blood PLAN: -Patient scheduled for EGD and colonoscopy tomorrow with Dr. rich if cleared medically. -Start GoLYTELY prep today -Clear liquid diet today and then nothing by mouth after midnight -Continue to monitor hemoglobin -Continue to monitor for any signs or symptoms of bleeding Physician Train Control Electronic Technician note has been reviewed by physician. Signing provider agrees with the documented findings, assessment, and plan of care. Objective - Vital Signs Vital signs: Vital Signs Temp 98.4 F 10/19/21 12:00 Pulse 84 10/19/21 12:00 Resp 18 10/19/21 12:00 BP 119/59 10/19/21 12:00 Pulse Ox 94 L 10/19/21 12:00 FiO2 Intake & Output 10/18/21 10/19/21 10/19/21 18:59 06:59 18:59 Intake Total 120 Output Total 125 200 Balance -5 -200 Intake: Oral 120 Output: Urine 125 Stool 200 Other: Voiding Method Urinal Diaper # Voids 200 2 1 # Bowel Movements 1 2 1 - Labs CBC & Chem 7: 10/19/21 07:37 10/19/21 07:37 Labs: Abnormal Lab Results - Last 24 Hours (Table) 10/18/21 10/18/21 10/19/21 Range/Units 16:06 20:18 06:12 RBC (4.30-5.90) m/uL Hgb (13.0-17.5) gm/dL Hct (39.0-53.0) % RDW (11.5-15.5) % Plt Count (150-450) k/uL Lymphocytes # (Manual) (1.0-4.8) k/uL Myelocytes # (Manual) (0) k/uL Nucleated RBCs (0-0) /100 WBC Chloride (98-107) mmol/L BUN (9-20) mg/dL Creatinine (0.66-1.25) mg/dL Glucose (74-99) mg/dL POC Glucose (mg/dL) 179 H 163 H 168 H (70-110) mg/dL Calcium (8.4-10.2) mg/dL Magnesium (1.6-2.3) mg/dL Alkaline Phosphatase (38-126) U/L Total Protein (6.3-8.2) g/dL Albumin (3.5-5.0) g/dL 10/19/21 10/19/21 10/19/21 Range/Units 07:37 07:37 11:34 RBC 3.18 L (4.30-5.90) m/uL Hgb 8.9 L (13.0-17.5) gm/dL Hct 26.7 L (39.0-53.0) % RDW 20.8 H (11.5-15.5) % Plt Count 120 L (150-450) k/uL Lymphocytes # (Manual) 0.25 L (1.0-4.8) k/uL Myelocytes # (Manual) 0.25 H (0) k/uL Nucleated RBCs 3 H (0-0) /100 WBC Chloride 110 H (98-107) mmol/L BUN 39 H (9-20) mg/dL Creatinine 1.99 H (0.66-1.25) mg/dL Glucose 151 H (74-99) mg/dL POC Glucose (mg/dL) 158 H (70-110) mg/dL Calcium 8.3 L (8.4-10.2) mg/dL Magnesium 2.6 H (1.6-2.3) mg/dL Alkaline Phosphatase 130 H (38-126) U/L Total Protein 5.7 L (6.3-8.2) g/dL Albumin 3.3 L (3.5-5.0) g/dL Microbiology - Last 24 Hours (Table) 10/17/21 03:00 Gram Stain - Final Sputum Sputum Culture - Final Haemophilus influenzae
--- NOTE | 2021-10-19 15:48 | P.PN ---
Subjective Progress Note Date: 10/19/21 Principal diagnosis: Abdominal pain Exacerbation of COPD, dyspnea 10/19/2021 patient resting comfortably sitting up in chair at this time. On 3 L nasal cannula maintaining oxygen saturations of 93-94%. He is afebrile with a temperature of 98.4, respiratory of 18, blood pressure of 119/59. Patient is scheduled for colonoscopy in EGD tomorrow pending clearance PCP. Most recent blood work reveals a white blood cell count 6.2, hemoglobin of 8.9, hematocrit 26.7, platelet count 120. Chemistry reveals a sodium 138, potassium 3.8, chloride 110, BUN 39, creatinine 1.99, glucose 151, magnesium 2.6, AST of 22, ELT of 21. He does continue with abdominal pain particularly on left side and diarrhea. Does relate diarrhea to his medication regimen at home. Patient does continue on ceftriaxone for pneumonia, IV iron, and Symbicort. He denies any chest pain or pressure nausea, vomiting, or difficulty with ambulation at this time. Most recent EKG scanned shows for normal sinus rhythm. Objective - Vital Signs Vital signs: Vital Signs Temp 98.4 F 10/19/21 12:00 Pulse 84 10/19/21 12:00 Resp 18 10/19/21 12:00 BP 119/59 10/19/21 12:00 Pulse Ox 94 L 10/19/21 12:00 FiO2 Intake & Output 10/18/21 10/19/21 10/19/21 18:59 06:59 18:59 Intake Total 120 Output Total 125 200 Balance -5 -200 Intake: Oral 120 Output: Urine 125 Stool 200 Other: Voiding Method Urinal Diaper # Voids 200 2 1 # Bowel Movements 1 2 1 - Exam GENERAL: Well-appearing, well-nourished and in no acute distress. HEAD: Atraumatic, normocephalic. EYES: Pupils equal round and reactive to light, extraocular movements intact, sclera anicteric, conjunctiva are normal. ENT:nares patent, oropharynx clear without exudates. Moist mucous membranes. NECK: Normal range of motion, supple without lymphadenopathy or JVD, no thyromegaly LUNGS: Breath sounds clear to auscultation bilaterally and equal. No wheezes ra les or rhonchi. HEART: Regular rate and rhythm without murmurs, rubs or gallops.S1S2 Normal ABDOMEN: Soft, tenderness with palpation in left upper quadrant normoactive bowel sounds. No guarding, no rebound. No masses appreciated. EXTREMITIES: Normal range of motion, no pitting or edema. No clubbing or cyanosis. NEUROLOGICAL: Cranial nerves II through XII grossly intact. Normal speech, normal gait. PSYCH: Normal mood, normal affect. SKIN: Warm, Dry, normal turgor, no rashes or lesions noted. - Labs CBC & Chem 7: 10/19/21 07:37 10/19/21 07:37 Labs: Abnormal Lab Results - Last 24 Hours (Table) 10/18/21 10/18/21 10/19/21 Range/Units 16:06 20:18 06:12 RBC (4.30-5.90) m/uL Hgb (13.0-17.5) gm/dL Hct (39.0-53.0) % RDW (11.5-15.5) % Plt Count (150-450) k/uL Lymphocytes # (Manual) (1.0-4.8) k/uL Myelocytes # (Manual) (0) k/uL Nucleated RBCs (0-0) /100 WBC Chloride (98-107) mmol/L BUN (9-20) mg/dL Creatinine (0.66-1.25) mg/dL Glucose (74-99) mg/dL POC Glucose (mg/dL) 179 H 163 H 168 H (70-110) mg/dL Calcium (8.4-10.2) mg/dL Magnesium (1.6-2.3) mg/dL Alkaline Phosphatase (38-126) U/L Total Protein (6.3-8.2) g/dL Albumin (3.5-5.0) g/dL 10/19/21 10/19/21 10/19/21 Range/Units 07:37 07:37 11:34 RBC 3.18 L (4.30-5.90) m/uL Hgb 8.9 L (13.0-17.5) gm/dL Hct 26.7 L (39.0-53.0) % RDW 20.8 H (11.5-15.5) % Plt Count 120 L (150-450) k/uL Lymphocytes # (Manual) 0.25 L (1.0-4.8) k/uL Myelocytes # (Manual) 0.25 H (0) k/uL Nucleated RBCs 3 H (0-0) /100 WBC Chloride 110 H (98-107) mmol/L BUN 39 H (9-20) mg/dL Creatinine 1.99 H (0.66-1.25) mg/dL Glucose 151 H (74-99) mg/dL POC Glucose (mg/dL) 158 H (70-110) mg/dL Calcium 8.3 L (8.4-10.2) mg/dL Magnesium 2.6 H (1.6-2.3) mg/dL Alkaline Phosphatase 130 H (38-126) U/L Total Protein 5.7 L (6.3-8.2) g/dL Albumin 3.3 L (3.5-5.0) g/dL Microbiology - Last 24 Hours (Table) 10/17/21 03:00 Gram Stain - Final Sputum Sputum Culture - Final Haemophilus influenzae Assessment and Plan (1) Abdominal pain Current Visit: Yes Status: Acute Code(s): R10.9 - UNSPECIFIED ABDOMINAL PAIN SNOMED Code(s): 76167920 (2) Acute dyspnea Current Visit: No Status: Acute Code(s): R06.00 - DYSPNEA, UNSPECIFIED SNOMED Code(s): 286854217 (3) CKD (chronic kidney disease), stage III Current Visit: No Status: Acute Code(s): N18.30 - CHRONIC KIDNEY DISEASE, STAGE 3 UNSPECIFIED SNOMED Code(s): 889148142 (4) COPD (chronic obstructive pulmonary disease) Current Visit: No Status: Acute Code(s): J44.9 - CHRONIC OBSTRUCTIVE PULMONARY DISEASE, UNSPECIFIED SNOMED Code(s): 41741313 (5) Anemia Current Visit: No Status: Acute Code(s): D64.9 - ANEMIA, UNSPECIFIED SNOMED Code(s): 193056803 (6) Elevated troponin Current Visit: Yes Status: Acute Code(s): R77.8 - OTHER SPECIFIED ABNORMALITIES OF PLASMA PROTEINS SNOMED Code(s): 447691752 (7) Cough Current Visit: Yes Status: Acute Code(s): R05.9 - COUGH, UNSPECIFIED SNOMED Code(s): 93343512 (8) Essential (primary) hypertension Current Visit: No Status: Acute Code(s): I10 - ESSENTIAL (PRIMARY) HYPERTENSION SNOMED Code(s): 02804911 (9) Anxiety Current Visit: No Status: Acute Code(s): F41.9 - ANXIETY DISORDER, UNSPECIFIED SNOMED Code(s): 35403350 (10) Interstitial lung disease Current Visit: No Status: Acute Code(s): J84.9 - INTERSTITIAL PULMONARY DISEASE, UNSPECIFIED SNOMED Code(s): 611781708 (11) Splenomegaly Current Visit: No Status: Chronic Priority: Medium Code(s): R16.1 - SPLENOMEGALY, NOT ELSEWHERE CLASSIFIED SNOMED Code(s): 69769601 (12) Dyspnea Current Visit: No Status: Acute Code(s): R06.00 - DYSPNEA, UNSPECIFIED SNOMED Code(s): 707594197 (13) Myelofibrosis Current Visit: No Status: Acute Code(s): D75.81 - MYELOFIBROSIS SNOMED Code(s): 38356024 Plan: Continue current medication regimen IV antibiotics (Rocephin) Continue with inhaled bronchodilators EGD and colonoscopy tomorrow as patient is cleared from a primary care standpoint We will continue to treat labs and vitals accordingly We'll reevaluate again tomorrow Time with Patient: Greater than 30
[2021-10-19 16:42] LABS: Glucose,Whole Blood 154 mg/dL (70-110)
--- NOTE | 2021-10-19 20:09 | P.PN ---
Subjective Progress Note Date: 10/19/21 EGD and COlonoscopy planned for tomorrow, no acute events overnight. respiratory culture positive Haemophilus influenza. Objective - Vital Signs Vital signs: Vital Signs Temp 98.4 F 10/19/21 12:00 Pulse 84 10/19/21 12:00 Resp 18 10/19/21 12:00 BP 119/59 10/19/21 12:00 Pulse Ox 94 L 10/19/21 12:00 FiO2 Intake & Output 10/18/21 10/19/21 10/19/21 18:59 06:59 18:59 Intake Total 120 Output Total 125 200 Balance -5 -200 Intake: Oral 120 Output: Urine 125 Stool 200 Other: Voiding Method Urinal Diaper # Voids 200 2 1 # Bowel Movements 1 2 1 - Exam - Constitutional General appearance: cooperative, no acute distress - EENT Eyes: EOMI ENT: NA/AT - Neck Neck: normal ROM - Respiratory Respiratory: bilateral: CTA - Cardiovascular Rhythm: regularly irregular - Gastrointestinal General gastrointestinal: distended, organomegaly - Integumentary Integumentary: pale - Musculoskeletal Musculoskeletal: generalized weakness - Psychiatric Psychiatric: A&O x's 3 - Labs CBC & Chem 7: 10/19/21 07:37 10/19/21 07:37 Labs: Abnormal Lab Results - Last 24 Hours (Table) 10/18/21 10/19/21 10/19/21 Range/Units 20:18 06:12 07:37 RBC 3.18 L (4.30-5.90) m/uL Hgb 8.9 L (13.0-17.5) gm/dL Hct 26.7 L (39.0-53.0) % RDW 20.8 H (11.5-15.5) % Plt Count 120 L (150-450) k/uL Lymphocytes # (Manual) 0.25 L (1.0-4.8) k/uL Myelocytes # (Manual) 0.25 H (0) k/uL Nucleated RBCs 3 H (0-0) /100 WBC Chloride (98-107) mmol/L BUN (9-20) mg/dL Creatinine (0.66-1.25) mg/dL Glucose (74-99) mg/dL POC Glucose (mg/dL) 163 H 168 H (70-110) mg/dL Calcium (8.4-10.2) mg/dL Magnesium (1.6-2.3) mg/dL Alkaline Phosphatase (38-126) U/L Total Protein (6.3-8.2) g/dL Albumin (3.5-5.0) g/dL 10/19/21 10/19/21 Range/Units 07:37 11:34 RBC (4.30-5.90) m/uL Hgb (13.0-17.5) gm/dL Hct (39.0-53.0) % RDW (11.5-15.5) % Plt Count (150-450) k/uL Lymphocytes # (Manual) (1.0-4.8) k/uL Myelocytes # (Manual) (0) k/uL Nucleated RBCs (0-0) /100 WBC Chloride 110 H (98-107) mmol/L BUN 39 H (9-20) mg/dL Creatinine 1.99 H (0.66-1.25) mg/dL Glucose 151 H (74-99) mg/dL POC Glucose (mg/dL) 158 H (70-110) mg/dL Calcium 8.3 L (8.4-10.2) mg/dL Magnesium 2.6 H (1.6-2.3) mg/dL Alkaline Phosphatase 130 H (38-126) U/L Total Protein 5.7 L (6.3-8.2) g/dL Albumin 3.3 L (3.5-5.0) g/dL Microbiology - Last 24 Hours (Table) 10/17/21 03:00 Gram Stain - Final Sputum Sputum Culture - Final Haemophilus influenzae Assessment and Plan (1) Pneumonia Narrative/Plan: - Pulmonary following and managing - IV Abx Current Visit: Yes Status: Acute Code(s): J18.9 - PNEUMONIA, UNSPECIFIED ORGANISM SNOMED Code(s): 323374411 (2) CKD (chronic kidney disease), stage III Narrative/Plan: -Nephrology is following Current Visit: No Status: Acute Code(s): N18.30 - CHRONIC KIDNEY DISEASE, STAGE 3 UNSPECIFIED SNOMED Code(s): 220376874 (3) COPD (chronic obstructive pulmonary disease) Current Visit: No Status: Acute Code(s): J44.9 - CHRONIC OBSTRUCTIVE PULMONARY DISEASE, UNSPECIFIED SNOMED Code(s): 77579982 (4) Myelofibrosis Narrative/Plan: Hold Jakafi with active infection/Inflam picture Current Visit: No Status: Acute Code(s): D75.81 - MYELOFIBROSIS SNOMED Code(s): 41518883 (5) MGUS (monoclonal gammopathy of unknown significance) Narrative/Plan: Stable Current Visit: No Status: Chronic Priority: Medium Code(s): D47.2 - MONOCLONAL GAMMOPATHY SNOMED Code(s): 636419317 (6) 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 - Ferritin is increased, therefore parental iron may not be beneficial at this time, although if active bleeding is seen would continue. - If suspicion of a systemic infection, hold off on parental iron. - Anemia with LDH over 1999, no evidence of hemolysis, DIC, possible Blood loss and surgery has been consulted for this. Current Visit: Yes Status: Acute Code(s): D50.9 - IRON DEFICIENCY ANEMIA, UNSPECIFIED SNOMED Code(s): 261778984 (9) Diarrhea Narrative/Plan: Check stool Studies Current Visit: Yes Status: Acute Code(s): R19.7 - DIARRHEA, UNSPECIFIED SNOMED Code(s): 79043449 (10) Influenza Narrative/Plan: Pulmonary following Current Visit: Yes Status: Acute Code(s): J11.1 - FLU DUE TO UNIDENTIFIED INFLUENZA VIRUS W OTH RESP MANIFEST SNOMED Code(s): 3513074 Plan: GI eval with COlonoscopy and EGD planned for tomorrow.
[2021-10-19 20:17] LABS: Glucose,Whole Blood 184 mg/dL (70-110)
[2021-10-19] MEDS: VIT A,C & E-LUTEIN-MINERALS 1 EACH TAB PO SCH (20:39)
[2021-10-20 06:24] LABS: Glucose,Whole Blood 117 mg/dL (70-110)
[2021-10-20] MEDS: INSULIN ASPART (NovoLOG) 100 UNIT/ML VIAL SQ SCH ×4 (06:46→21:22)
[2021-10-20] MEDS: PANTOPRAZOLE 40 MG TABLET PO SCH (06:52)
[2021-10-20] MEDS: SODIUM CHLORIDE 0.9% 1,000 ML IV SCH (06:52)
[2021-10-20] MEDS: hydrALAZINE HCL 10 MG TAB PO SCH ×3 (06:52→16:35)
[2021-10-20] MEDS: SUCRALFATE 1 GM TAB PO SCH ×3 (06:52→16:35)
[2021-10-20] MEDS: SYMBICORT 160-4.5 MCG INHALER INHALATION SCH ×2 (07:58→19:24)
[2021-10-20] MEDS: predniSONE 20 MG TAB PO SCH (08:48)
[2021-10-20] MEDS: ASPIRIN 81 MG PO SCH (08:48)
[2021-10-20] MEDS: carvediloL 12.5 MG TAB PO SCH ×2 (08:48→21:22)
[2021-10-20] MEDS: amLODIPine 5 MG TAB PO SCH (08:49)
[2021-10-20] MEDS: LORazepam 0.5 MG TAB PO SCH ×3 (08:49→21:22)
[2021-10-20] MEDS: ISOSORBIDE MONONITRATE ER 60 MG TAB.ER.24H PO SCH (08:49)
[2021-10-20] MEDS: SODIUM FERRIC GLUCONAT-SUCROSE 125 MG in SODIUM CHLORIDE 0.9% 100 ML IVPB SCH (08:50)
[2021-10-20 09:13] LABS: Calcium 8.1 mg/dL (8.4-10.2); Magnesium 2.5 mg/dL (1.6-2.3); Potassium 3.2 mmol/L (3.5-5.1)
[2021-10-20 09:43] LABS: Anisocytosis Moderate; HCT 25.9 % (39.0-53.0); HGB 8.7 gm/dL (13.0-17.5); Hypochromasia Slight; MCHC 33.7 g/dL (31.0-37.0); MCV 83.1 fL (80.0-100.0); Mean Platelet Volume 12.1; Microcytosis Slight; Platelet Count 124 k/uL (150-450); Poikilocytosis Slight; RBC 3.11 m/uL (4.30-5.90); RDW 20.8 % (11.5-15.5)
[2021-10-20] MEDS ORDERED: POTASSIUM CHLORIDE 40 MEQ in WATER FOR INJECTION 1 100ML.BAG IVPB STA (10:34)
[2021-10-20] MEDS ORDERED: POTASSIUM CHLORIDE 20 MEQ in WATER FOR INJECTION 1 100ML.BAG IVPB STA (10:37)
--- NOTE | 2021-10-20 10:37 | P.PN ---
Subjective Patient is seen in follow-up for acute kidney injury and chronic kidney disease. Renal function improving. Has been voiding. Continues to have diarrhea. Scheduled for endoscopy today. Receiving IV fluids. Vital signs are stable. General: Awake. No acute distress. HEENT: Head exam is unremarkable. LUNGS: Breath sounds decreased. HEART: Rate and Rhythm are regular. ABDOMEN: Soft, no distention. Nontender. EXTREMITITES: No edema. Objective - Vital Signs Vital signs: Vital Signs Temp 98.2 F 10/20/21 03:57 Pulse 77 10/20/21 03:57 Resp 19 10/20/21 03:57 BP 152/66 10/20/21 03:57 Pulse Ox 95 10/20/21 03:57 FiO2 Intake & Output 10/19/21 10/20/21 10/20/21 18:59 06:59 18:59 Output Total 200 Balance -200 Output: Stool 200 Other: Voiding Method Urinal Diaper # Voids 1 1 # Bowel Movements 1 3 - Labs CBC & Chem 7: 10/20/21 08:03 10/20/21 08:03 Labs: Abnormal Lab Results - Last 24 Hours (Table) 10/19/21 10/19/21 10/19/21 Range/Units 11:34 16:42 20:15 RBC (4.30-5.90) m/uL Hgb (13.0-17.5) gm/dL Hct (39.0-53.0) % RDW (11.5-15.5) % Plt Count (150-450) k/uL Potassium (3.5-5.1) mmol/L Chloride (98-107) mmol/L BUN (9-20) mg/dL Creatinine (0.66-1.25) mg/dL POC Glucose (mg/dL) 158 H 154 H 184 H (70-110) mg/dL Calcium (8.4-10.2) mg/dL Magnesium (1.6-2.3) mg/dL 10/20/21 10/20/21 10/20/21 Range/Units 06:23 08:03 08:03 RBC 3.11 L (4.30-5.90) m/uL Hgb 8.7 L (13.0-17.5) gm/dL Hct 25.9 L (39.0-53.0) % RDW 20.8 H (11.5-15.5) % Plt Count 124 L (150-450) k/uL Potassium 3.2 L (3.5-5.1) mmol/L Chloride 111 H (98-107) mmol/L BUN 36 H (9-20) mg/dL Creatinine 1.76 H (0.66-1.25) mg/dL POC Glucose (mg/dL) 117 H (70-110) mg/dL Calcium 8.1 L (8.4-10.2) mg/dL Magnesium 2.5 H (1.6-2.3) mg/dL Microbiology - Last 24 Hours (Table) 10/17/21 03:00 Gram Stain - Final Sputum Sputum Culture - Final Haemophilus influenzae Assessment and Plan Plan: Assessment: 1. Acute kidney injury mostly prerenal from poor intake and diarrhea. Creatinine 2.31 on admission and is 1.76 today. CAT scan done 10/11/2021 showed nonobstructing renal calculi with right renal atrophy. No hydronephrosis noted. 2. 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 UA with 1+ protein. No blood. Patient does have positive BENIGNO and double-stranded DNA antibody. Rest serologies negative. Due to solitary functioning kidney and depressed GFR (<30), kidney biopsy was not done. Patient also refused the biopsy. 3. Abdominal pain and diarrhea. Surgery following. Possible EGD and colonoscopy this admission. 4. Anemia of chronic kidney disease. Stool for occult blood negative. Also noted to be thrombocytopenic. Iron deficiency noted. Hematology following. 5. Metabolic acidosis secondary to acute kidney injury. Stable. 6. Hypertension with chronic kidney disease. Stable. 7. Pneumonia on antibiotics. Sputum culture positive for Haemophilus influenzae. 8. History of myelofibrosis. Hematology/oncology following. 9. Moderate MR. 10. Hypokalemia from poor intake. Plan: Maintain gentle IV hydration. Maintain IV iron. Avoid nephrotoxins. Continue to monitor renal function and urine output. Would also benefit from rheumatology eval outpatient. Endoscopy today. Replace potassium. Repeat BENIGNO, dsDNA Ab. Add Aranesp.
[2021-10-20] MEDS ORDERED: PROPOFOL 10 MG/ML 20 ML VIAL IV ONE (10:46)
[2021-10-20] MEDS ORDERED: LIDOCAINE 2% INJ 20 MG/ML (2 ML VIAL) ONE (10:46)
[2021-10-20] MEDS ORDERED: IV FLUID CONTINUATION 1,000 ML IV ONE ×2 (10:49)
[2021-10-20] MEDS ORDERED: DARBEPOETIN ALFA 25 MCG/0.42 ML SYRINGE SQ SCH (11:00)
--- NOTE | 2021-10-20 11:13 | P.OP ---
Date of Procedure: 10/20/21 Preoperative Diagnosis: Anemia Postoperative Diagnosis: Antral gastritis Colitis of rectum and sigmoid colon and left colon suggestive of C. diff colitis biopsy pending Procedure(s) Performed: EGD Colonoscopy Anesthesia: MAC Surgeon: Rodriguez Reece Pathology: other (Antrum, esophagus) Condition: stable Disposition: PACU Description of Procedure: Patient's placed on the endoscopy table in the lateral position. He received IV sedation. The gastroscope placed oropharynx passed in the esophagus and the stomach. Scope was placed through the pylorus. The first and second portion of the duodenum appeared normal. The scope was then brought back the antrum this. Mildly inflamed. A biopsies performed. The scope was then retroflexed and the remainder of the stomach appeared normal. The GE junction was at 40 cm. The distal esophagus appeared normal. The proximal esophagus appeared normal. S cope was withdrawn for patient. Next digital rectal exam was performed. This revealed no no ebonized.. The flexible colonoscope was placed patient anus and passed throughout the entire colon. The ileocecal valve was visualized secondary large amount of liquid stool in the right colon. The scope was withdrawn. The transverse colon appeared normal. The descending colon had some patchy colitis that was suggestive of C. diff colitis. This was worsened in the sigmoid colon and rectum. A biopsy was performed. Scope was withdrawn. There is no evidence of any GI bleed.
[2021-10-20 11:55] LABS: Glucose,Whole Blood 106 mg/dL (70-110)
--- NOTE | 2021-10-20 13:05 | P.PN ---
Subjective Progress Note Date: 10/20/21 Principal diagnosis: Acute exacerbation of chronic COPD, anemia secondary to myelofibrosis Sergey is an 81-year-old male well-known to my practice known history of COPD and myelofibrosis with other comorbidities, patient has O2 dependent nontender currently steroid dependent but has been on corticosteroids off and on over the last 5 years, does not tolerate CPAP, remote history of embolism on no anticoagulant therapy (did not tolerate). Patient also complains of abdominal pain which is chronic in nature has grossly enlarged spleen secondary to myelofibrosis currently on O2 3 L nasal cannula short of breath white cell count was 5.2 with a hemoglobin of 10.6 which is about his baseline. Suspicion for left lower lobe pneumonia current admission labs demonstrated creatinine of 2.3 sodium of 138 potassium of 3.9 troponin 0.9 10/20/2021 patient is status post EGD and colonoscopy discuss case with Dr. Reece he suggested the patient may have C. diff from the appearance of the colon Otherwise mild gastritis no active bleeding while signs are stable patient is afebrile we will start patient on Flagyl for C. diff protocol Objective - Vital Signs Vital signs: Vital Signs Temp 97.9 F 10/20/21 11:36 Pulse 67 10/20/21 11:36 Resp 16 10/20/21 11:36 BP 125/54 10/20/21 11:36 Pulse Ox 95 10/20/21 11:36 FiO2 Intake & Output 10/19/21 10/20/21 10/20/21 18:59 06:59 18:59 Intake Total 200 Output Total 200 100 Balance -200 100 Intake: IV 200 Output: Stool 200 100 Other: Voiding Method Urinal Diaper # Voids 1 1 # Bowel Movements 1 3 - Exam General: [Patient awake, alert and oriented times 3. Patient in no acute distress.] HEENT: [PERRL. EOMI. No pharyngeal erythema or exudate.] Neck: [No adenopathy.] Cardiac: [Heart regular in rate and rhythm. No S3. No S4. No clicks, rubs. No murmur.] Lungs: [Clear to auscultation bilaterally.] Abdomen: [No mass. Grossly enlarged spleen on palpitation. Bowel sounds presnt and normoactive in all 4 quadrants. 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 CN II - XII grossly intact.] Lymphatic: [No adenopathy.] - Labs CBC & Chem 7: 10/20/21 08:03 10/20/21 08:03 Labs: Abnormal Lab Results - Last 24 Hours (Table) 10/19/21 10/19/21 10/20/21 Range/Units 16:42 20:15 06:23 RBC (4.30-5.90) m/uL Hgb (13.0-17.5) gm/dL Hct (39.0-53.0) % RDW (11.5-15.5) % Plt Count (150-450) k/uL Potassium (3.5-5.1) mmol/L Chloride (98-107) mmol/L BUN (9-20) mg/dL Creatinine (0.66-1.25) mg/dL POC Glucose (mg/dL) 154 H 184 H 117 H (70-110) mg/dL Calcium (8.4-10.2) mg/dL Magnesium (1.6-2.3) mg/dL 10/20/21 10/20/21 Range/Units 08:03 08:03 RBC 3.11 L (4.30-5.90) m/uL Hgb 8.7 L (13.0-17.5) gm/dL Hct 25.9 L (39.0-53.0) % RDW 20.8 H (11.5-15.5) % Plt Count 124 L (150-450) k/uL Potassium 3.2 L (3.5-5.1) mmol/L Chloride 111 H (98-107) mmol/L BUN 36 H (9-20) mg/dL Creatinine 1.76 H (0.66-1.25) mg/dL POC Glucose (mg/dL) (70-110) mg/dL Calcium 8.1 L (8.4-10.2) mg/dL Magnesium 2.5 H (1.6-2.3) mg/dL Microbiology - Last 24 Hours (Table) 10/17/21 03:00 Gram Stain - Final Sputum Sputum Culture - Final Haemophilus influenzae Assessment and Plan (1) Abdominal pain Current Visit: Yes Status: Acute Code(s): R10.9 - UNSPECIFIED ABDOMINAL PAIN SNOMED Code(s): 50289777 (2) Diarrhea Current Visit: Yes Status: Acute Code(s): R19.7 - DIARRHEA, UNSPECIFIED SNOMED Code(s): 00632435 (3) Elevated troponin Current Visit: Yes Status: Acute Code(s): R77.8 - OTHER SPECIFIED ABNORMALITIES OF PLASMA PROTEINS SNOMED Code(s): 190869644 (4) Essential (primary) hypertension Current Visit: Yes Status: Acute Code(s): I10 - ESSENTIAL (PRIMARY) HYPERTENSION SNOMED Code(s): 67162582 (5) H/O myocardial infarction, greater than 8 weeks Current Visit: Yes Status: Acute Code(s): I25.2 - OLD MYOCARDIAL INFARCTION SNOMED Code(s): 2572449 (6) IPF (idiopathic pulmonary fibrosis) Current Visit: Yes Status: Acute Code(s): J84.112 - IDIOPATHIC PULMONARY FIBROSIS SNOMED Code(s): 776478171 (7) Immunosuppression Current Visit: Yes Status: Acute Code(s): D84.9 - IMMUNODEFICIENCY, UNSPECIFIED SNOMED Code(s): 17183402 (8) Microcytic anemia Current Visit: Yes Status: Acute Code(s): D50.9 - IRON DEFICIENCY ANEMIA, UNSPECIFIED SNOMED Code(s): 449339778 (9) Mixed hyperlipidemia Current Visit: Yes Status: Acute Code(s): E78.2 - MIXED HYPERLIPIDEMIA SNOMED Code(s): 538888761 (10) CKD (chronic kidney disease), stage III Current Visit: No Status: Acute Code(s): N18.30 - CHRONIC KIDNEY DISEASE, STAGE 3 UNSPECIFIED SNOMED Code(s): 830722604 Plan: Awaiting results of C. diff, will start by mouth Flagyl 250 mg twice daily IV antibiotics Inhaled corticosteroids inhaled DuoNeb Continue home meds for hypertension oxygen to maintain sats Time with Patient: Greater than 30
[2021-10-20] MEDS: HYDROcodone/APAP 5-325MG 1 EACH TAB PO PRN (14:54)
[2021-10-20] MEDS: metroNIDAZOLE 250 MG TABLET PO SCH ×2 (16:35→21:46)
[2021-10-20 16:43] LABS: Glucose,Whole Blood 125 mg/dL (70-110)
--- NOTE | 2021-10-20 19:16 | P.PN ---
Subjective Progress Note Date: 10/20/21 Status post colonscopy this am, no active bleed or mass Objective - Vital Signs Vital signs: Vital Signs Temp 97.9 F 10/20/21 08:00 Pulse 79 10/20/21 08:00 Resp 16 10/20/21 08:00 BP 148/67 10/20/21 08:00 Pulse Ox 96 10/20/21 08:00 FiO2 Intake & Output 10/19/21 10/20/21 10/20/21 18:59 06:59 18:59 Intake Total 200 Output Total 200 100 Balance -200 100 Intake: IV 200 Output: Stool 200 100 Other: Voiding Method Urinal Diaper # Voids 1 1 # Bowel Movements 1 3 - Exam - Constitutional General appearance: cooperative, no acute distress - EENT Eyes: EOMI ENT: NA/AT - Neck Neck: normal ROM - Respiratory Respiratory: bilateral: CTA - Cardiovascular Rhythm: regularly irregular - Gastrointestinal General gastrointestinal: distended, organomegaly - Integumentary Integumentary: pale - Musculoskeletal Musculoskeletal: generalized weakness - Psychiatric Psychiatric: A&O x's 3 - Labs CBC & Chem 7: 10/20/21 08:03 10/20/21 08:03 Labs: Abnormal Lab Results - Last 24 Hours (Table) 10/19/21 10/19/21 10/19/21 Range/Units 11:34 16:42 20:15 RBC (4.30-5.90) m/uL Hgb (13.0-17.5) gm/dL Hct (39.0-53.0) % RDW (11.5-15.5) % Plt Count (150-450) k/uL Potassium (3.5-5.1) mmol/L Chloride (98-107) mmol/L BUN (9-20) mg/dL Creatinine (0.66-1.25) mg/dL POC Glucose (mg/dL) 158 H 154 H 184 H (70-110) mg/dL Calcium (8.4-10.2) mg/dL Magnesium (1.6-2.3) mg/dL 10/20/21 10/20/21 10/20/21 Range/Units 06:23 08:03 08:03 RBC 3.11 L (4.30-5.90) m/uL Hgb 8.7 L (13.0-17.5) gm/dL Hct 25.9 L (39.0-53.0) % RDW 20.8 H (11.5-15.5) % Plt Count 124 L (150-450) k/uL Potassium 3.2 L (3.5-5.1) mmol/L Chloride 111 H (98-107) mmol/L BUN 36 H (9-20) mg/dL Creatinine 1.76 H (0.66-1.25) mg/dL POC Glucose (mg/dL) 117 H (70-110) mg/dL Calcium 8.1 L (8.4-10.2) mg/dL Magnesium 2.5 H (1.6-2.3) mg/dL Microbiology - Last 24 Hours (Table) 10/17/21 03:00 Gram Stain - Final Sputum Sputum Culture - Final Haemophilus influenzae Assessment and Plan (1) Pneumonia Narrative/Plan: - Pulmonary following and managing - IV Abx Current Visit: Yes Status: Acute Code(s): J18.9 - PNEUMONIA, UNSPECIFIED ORGANISM SNOMED Code(s): 105377139 (2) CKD (chronic kidney disease), stage III Narrative/Plan: -Nephrology is following Acute on chronic, improving Current Visit: No Status: Acute Code(s): N18.30 - CHRONIC KIDNEY DISEASE, STAGE 3 UNSPECIFIED SNOMED Code(s): 903020655 (3) COPD (chronic obstructive pulmonary disease) Current Visit: No Status: Acute Code(s): J44.9 - CHRONIC OBSTRUCTIVE PULMONARY DISEASE, UNSPECIFIED SNOMED Code(s): 45689543 (4) Myelofibrosis Narrative/Plan: Hold Jakafi with active infection/Inflam picture Current Visit: No Status: Acute Code(s): D75.81 - MYELOFIBROSIS SNOMED Code(s): 08216894 (5) MGUS (monoclonal gammopathy of unknown significance) Narrative/Plan: Stable Current Visit: No Status: Chronic Priority: Medium Code(s): D47.2 - MONOCLONAL GAMMOPATHY SNOMED Code(s): 851752027 (6) 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 - Ferritin is increased, therefore parental iron may not be beneficial at this time, although if active bleeding is seen would continue. - If suspicion of a systemic infection, hold off on parental iron. - Anemia with LDH over 1999, no evidence of hemolysis, DIC, possible Blood loss and surgery has been consulted for this. Status posy colonoscopy without evidence bleed. Current Visit: Yes Status: Acute Code(s): D50.9 - IRON DEFICIENCY ANEMIA, UNSPECIFIED SNOMED Code(s): 943726614 (9) Diarrhea Narrative/Plan: Status post colonscopy this am, no active bleed or mass Current Visit: Yes Status: Acute Code(s): R19.7 - DIARRHEA, UNSPECIFIED SNOMED Code(s): 92496280 (10) Influenza Narrative/Plan: Pulmonary following Current Visit: Yes Status: Acute Code(s): J11.1 - FLU DUE TO UNIDENTIFIED INFLUENZA VIRUS W OTH RESP MANIFEST SNOMED Code(s): 8682299
[2021-10-20 19:58] LABS: DNA Double-Stranded POSITIVE (NEGATIVE)
[2021-10-20 20:39] LABS: Glucose,Whole Blood 138 mg/dL (70-110)
[2021-10-20] MEDS: CHOLECALCIFEROL 25 MCG (1000 IU) TABLET PO SCH (21:22)
[2021-10-21 01:20] LABS: Glucose,Whole Blood 108 mg/dL (70-110)
[2021-10-21 06:21] LABS: Glucose,Whole Blood 92 mg/dL (70-110)
[2021-10-21] MEDS: INSULIN ASPART (NovoLOG) 100 UNIT/ML VIAL SQ SCH ×4 (06:26→21:02)
[2021-10-21] MEDS: metroNIDAZOLE 250 MG TABLET PO SCH ×3 (06:29→21:02)
[2021-10-21] MEDS: SUCRALFATE 1 GM TAB PO SCH ×3 (06:29→18:14)
[2021-10-21] MEDS: hydrALAZINE HCL 10 MG TAB PO SCH ×3 (06:29→18:14)
[2021-10-21] MEDS: PANTOPRAZOLE 40 MG TABLET PO SCH (06:29)
[2021-10-21] MEDS: amLODIPine 5 MG TAB PO SCH ×2 (08:15→09:03)
[2021-10-21] MEDS: SYMBICORT 160-4.5 MCG INHALER INHALATION SCH ×2 (08:28→20:12)
[2021-10-21] MEDS: HYDROcodone/APAP 5-325MG 1 EACH TAB PO PRN (09:01)
[2021-10-21] MEDS: carvediloL 12.5 MG TAB PO SCH ×2 (09:02→21:02)
[2021-10-21] MEDS: ISOSORBIDE MONONITRATE ER 60 MG TAB.ER.24H PO SCH (09:02)
[2021-10-21] MEDS: ASPIRIN 81 MG PO SCH (09:02)
[2021-10-21] MEDS: predniSONE 20 MG TAB PO SCH (09:02)
[2021-10-21] MEDS: LORazepam 0.5 MG TAB PO SCH ×3 (09:03→21:02)
[2021-10-21 09:47] LABS: Magnesium 2.2 mg/dL (1.6-2.3); Potassium 3.4 mmol/L (3.5-5.1)
[2021-10-21] MEDS ORDERED: POTASSIUM CHLORIDE ER 20 MEQ TAB.ER PO STA (10:26)
--- NOTE | 2021-10-21 10:29 | P.PN ---
Subjective Patient is seen in follow-up for acute kidney injury and chronic kidney disease. Renal function fairly stable. Has been voiding. Diarrhea improved. No active complaints. Vital signs are stable. General: Awake. No acute distress. HEENT: Head exam is unremarkable. LUNGS: Breath sounds decreased. HEART: Rate and Rhythm are regular. ABDOMEN: Soft, no distention. Nontender. EXTREMITITES: No edema. Objective - Vital Signs Vital signs: Vital Signs Temp 98.2 F 10/21/21 03:57 Pulse 88 10/21/21 03:57 Resp 18 10/21/21 03:57 BP 133/70 10/21/21 03:57 Pulse Ox 96 10/21/21 03:57 FiO2 Intake & Output 10/20/21 10/21/21 10/21/21 18:59 06:59 18:59 Intake Total 440 Output Total 300 Balance 140 Intake: IV 200 Oral 240 Output: Urine 200 Stool 100 Other: Voiding Method Bedside Commode Urinal Diaper # Bowel Movements 1 2 - Labs CBC & Chem 7: 10/20/21 08:03 10/21/21 08:14 Labs: Abnormal Lab Results - Last 24 Hours (Table) 10/20/21 10/20/21 10/20/21 Range/Units 08:03 16:40 20:37 Potassium (3.5-5.1) mmol/L Chloride (98-107) mmol/L BUN (9-20) mg/dL Creatinine (0.66-1.25) mg/dL POC Glucose (mg/dL) 125 H 138 H (70-110) mg/dL Calcium (8.4-10.2) mg/dL BENIGNO Screen POSITIVE A (NEGATIVE) Double Strand DNA Ab POSITIVE A (NEGATIVE) 10/21/21 Range/Units 08:14 Potassium 3.4 L (3.5-5.1) mmol/L Chloride 114 H (98-107) mmol/L BUN 30 H (9-20) mg/dL Creatinine 1.89 H (0.66-1.25) mg/dL POC Glucose (mg/dL) (70-110) mg/dL Calcium 8.0 L (8.4-10.2) mg/dL BENIGNO Screen (NEGATIVE) Double Strand DNA Ab (NEGATIVE) Assessment and Plan Plan: Assessment: 1. Acute kidney injury mostly prerenal from poor intake and diarrhea. Creatinine 2.31 on admission and is fairly stable at 1.89 today. CAT scan done 10/11/2021 showed nonobstructing renal calculi with right renal atrophy. No hydronephrosis noted. 2. 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 UA with 1+ protein. No blood. Patient does have positive BENIGNO and double-stranded DNA antibody. Rest serologies negative. Due to solitary functioning kidney and depressed GFR (<30), kidney biopsy was not done. Patient also refused the biopsy. 3. Abdominal pain and diarrhea. Surgery following. EGD and colonoscopy revealed antral gastritis and colitis of rectum and sigmoid colon. 4. Anemia of chronic kidney disease. Stool for occult blood negative. Also noted to be thrombocytopenic. Iron deficiency noted. Hematology following. On Aranesp. 5. Metabolic acidosis secondary to acute kidney injury. Stable. 6. Hypertension with chronic kidney disease. Stable. 7. Pneumonia on antibiotics. Sputum culture positive for Haemophilus influenzae. 8. History of myelofibrosis and MGUS. Hematology/oncology following. 9. Moderate MR. 10. Hypokalemia from poor intake. Plan: Maintain gentle IV hydration. Maintain IV iron. Avoid nephrotoxins. Continue to monitor renal function and urine output. Would also benefit from rheumatology eval outpatient - BENIGNO positive. Double- stranded DNA antibody also positive with level of 13. This is improved from 73 last year. Replace potassium.
[2021-10-21 12:00] LABS: Glucose,Whole Blood 112 mg/dL (70-110)
--- NOTE | 2021-10-21 12:56 | P.PN ---
Subjective Progress Note Date: 10/21/21 CHIEF COMPLAINT: Anemia HISTORY OF PRESENT ILLNESS: Surgical service following regards to patient's anemia. Patient is status post EGD and colonoscopy that demonstrated antral gastritis and colitis of the rectum and sigmoid colon and left colon. Biopsies taken. Stool for C. diff has been negative. Patient reports that he had abdominal gas pains yesterday at the colonoscopy. The pains are doing better. I he is now having flatus. Denies any nausea or vomiting. He did pass one episode of a large amount of blood per rectum after the colonoscopy. The bleeding is likely traumatic. Since then he's had no further bleeding. He is also being followed by pulmonary service for COPD and pneumonia. Afebrile. Last hemoglobin 8.7 sodium 140 potassium 3.4 creatinine 1.89 PHYSICAL EXAM: VITAL SIGNS: Reviewed. GENERAL: Well-developed in no acute distress. HEENT: No sclera icterus. Extraocular movements grossly intact. Moist buccal mucosa. Head is atraumatic, normocephalic. ABDOMEN: Soft. Nondistended. Nontender. NEUROLOGIC: Alert and oriented. Cranial nerves II through XII grossly intact. ASSESSMENT: 1. Anemia status post EGD and colonoscopy that demonstrated antral gastritis and colitis of the rectum and sigmoid colon and left colon 2. Hypokalemia. Potassium being replaced. PLAN: -Continue regular diet -Continue antibiotics for colitis -Continue supportive care -Encouraged patient to ambulate -Continue to monitor hemoglobin -Continue to monitor for any signs or symptoms of bleeding Physician Body Mechanic Apprentice note has been reviewed by physician. Signing provider agrees with the documented findings, assessment, and plan of care. Objective - Vital Signs Vital signs: Vital Signs Temp 98.5 F 10/21/21 08:00 Pulse 90 10/21/21 08:00 Resp 22 10/21/21 08:00 BP 163/51 10/21/21 08:00 Pulse Ox 93 L 10/21/21 08:00 FiO2 Intake & Output 10/20/21 10/21/21 10/21/21 18:59 06:59 18:59 Intake Total 440 0 Output Total 300 150 200 Balance 140 -150 -200 Intake: IV 200 Oral 240 0 Output: Urine 200 150 200 Stool 100 Other: Voiding Method Bedside Commode Urinal Diaper # Bowel Movements 1 2 - Labs CBC & Chem 7: 10/20/21 08:03 10/21/21 08:14 Labs: Abnormal Lab Results - Last 24 Hours (Table) 10/20/21 10/20/21 10/20/21 Range/Units 08:03 16:40 20:37 Potassium (3.5-5.1) mmol/L Chloride (98-107) mmol/L BUN (9-20) mg/dL Creatinine (0.66-1.25) mg/dL POC Glucose (mg/dL) 125 H 138 H (70-110) mg/dL Calcium (8.4-10.2) mg/dL BENIGNO Screen POSITIVE A (NEGATIVE) Double Strand DNA Ab POSITIVE A (NEGATIVE) 10/21/21 10/21/21 Range/Units 08:14 11:56 Potassium 3.4 L (3.5-5.1) mmol/L Chloride 114 H (98-107) mmol/L BUN 30 H (9-20) mg/dL Creatinine 1.89 H (0.66-1.25) mg/dL POC Glucose (mg/dL) 112 H (70-110) mg/dL Calcium 8.0 L (8.4-10.2) mg/dL BENIGNO Screen (NEGATIVE) Double Strand DNA Ab (NEGATIVE)
[2021-10-21] MEDS: SODIUM FERRIC GLUCONAT-SUCROSE 125 MG in SODIUM CHLORIDE 0.9% 100 ML IVPB SCH (13:04)
[2021-10-21 13:16] LABS: Anisocytosis Moderate; HCT 25.2 % (39.0-53.0); HGB 8.4 gm/dL (13.0-17.5); Hypochromasia Slight; MCH 27.7 pg (25.0-35.0); MCHC 33.1 g/dL (31.0-37.0); MCV 83.5 fL (80.0-100.0); Mean Platelet Volume 12.4; Microcytosis Slight; Platelet Count 119 k/uL (150-450); Poikilocytosis Slight; RBC 3.02 m/uL (4.30-5.90); RDW 20.8 % (11.5-15.5)
[2021-10-21 15:14] LABS: Band Neutrophils % 2 %; Metamyelocytes % 3 %; Myelocytes % 3 %; Neutrophils % (M) 80 %
[2021-10-21 15:19] LABS: Nucleated Red Blood Cells 4 /100 WBC (0-0); Total Cells Counted 200
[2021-10-21 15:20] LABS: Blast Cells # (M) 0.04 k/uL (0); Eosinophils # (M) 0.04 k/uL (0-0.7); Lymphocytes # (M) 0.34 k/uL (1.0-4.8); Metamyelocytes # (M) 0.13 k/uL (0); Monocytes # (M) 0.22 k/uL (0-1.0); Myelocytes # (M) 0.13 k/uL (0); WBC 4.3 k/uL (3.8-10.6)
[2021-10-21 15:21] LABS: Large Platelets Present; Tear Drop Cells Present
--- NOTE | 2021-10-21 15:33 | P.PN ---
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 Patient also complains of abdominal pain which is chronic in nature has grossly enlarged spleen secondary to myelofibrosis currently on O2 3 L nasal cannula short of breath white cell count was 5.2 with a hemoglobin of 10.6 which is about his baseline. Suspicion for left lower lobe pneumonia current admission labs demonstrated creatinine of 2.3 sodium of 138 potassium of 3.9 troponin 0.9 10/20/2021 patient is status post EGD and colonoscopy discuss case with Dr. Reece he suggested the patient may have C. diff from the appearance of the colon Otherwise mild gastritis no active bleeding while signs are stable patient is afebrile we will start patient on Flagyl for C. diff protocol 10/21/2021 patient is awake alert oriented 3 but is unstable patient is afebrile C. diff C. diff toxin negative Objective - Vital Signs Vital signs: Vital Signs Temp 97.8 F 10/21/21 12:00 Pulse 75 10/21/21 12:00 Resp 18 10/21/21 14:00 BP 136/63 10/21/21 12:00 Pulse Ox 94 L 10/21/21 12:00 FiO2 Intake & Output 10/20/21 10/21/21 10/21/21 18:59 06:59 18:59 Intake Total 440 240 Output Total 300 150 200 Balance 140 -150 40 Intake: IV 200 Oral 240 240 Output: Urine 200 150 200 Stool 100 Other: Voiding Method Bedside Commode Urinal Diaper # Bowel Movements 1 2 - Exam General: [Patient awake, alert and oriented times 3. Patient in no acute distress.] HEENT: [PERRL. EOMI. No pharyngeal erythema or exudate.] Neck: [No adenopathy.] Cardiac: [Heart regular in rate and rhythm. No S3. No S4. No clicks, rubs. No murmur.] Lungs: [Clear to auscultation bilaterally.] Abdomen: [No mass. Grossly enlarged spleen on palpitation. Bowel sounds presnt and normoactive in all 4 quadrants. 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 CN II - XII grossly intact.] Lymphatic: [No adenopathy.] - Labs CBC & Chem 7: 10/21/21 08:14 10/21/21 08:14 Labs: Abnormal Lab Results - Last 24 Hours (Table) 10/20/21 10/20/21 10/20/21 Range/Units 08:03 16:40 20:37 RBC (4.30-5.90) m/uL Hgb (13.0-17.5) gm/dL Hct (39.0-53.0) % RDW (11.5-15.5) % Plt Count (150-450) k/uL Blast Cells % % Lymphocytes # (Manual) (1.0-4.8) k/uL Metamyelocytes # (Man) (0) k/uL Myelocytes # (Manual) (0) k/uL Blast Cells # (Man) (0) k/uL Nucleated RBCs (0-0) /100 WBC Potassium (3.5-5.1) mmol/L Chloride (98-107) mmol/L BUN (9-20) mg/dL Creatinine (0.66-1.25) mg/dL POC Glucose (mg/dL) 125 H 138 H (70-110) mg/dL Calcium (8.4-10.2) mg/dL BENIGNO Screen POSITIVE A (NEGATIVE) Double Strand DNA Ab POSITIVE A (NEGATIVE) 10/21/21 10/21/21 10/21/21 Range/Units 08:14 08:14 11:56 RBC 3.02 L (4.30-5.90) m/uL Hgb 8.4 L (13.0-17.5) gm/dL Hct 25.2 L (39.0-53.0) % RDW 20.8 H (11.5-15.5) % Plt Count 119 L (150-450) k/uL Blast Cells % 1 H* % Lymphocytes # (Manual) 0.34 L (1.0-4.8) k/uL Metamyelocytes # (Man) 0.13 H (0) k/uL Myelocytes # (Manual) 0.13 H (0) k/uL Blast Cells # (Man) 0.04 H (0) k/uL Nucleated RBCs 4 H (0-0) /100 WBC Potassium 3.4 L (3.5-5.1) mmol/L Chloride 114 H (98-107) mmol/L BUN 30 H (9-20) mg/dL Creatinine 1.89 H (0.66-1.25) mg/dL POC Glucose (mg/dL) 112 H (70-110) mg/dL Calcium 8.0 L (8.4-10.2) mg/dL BENIGNO Screen (NEGATIVE) Double Strand DNA Ab (NEGATIVE) Assessment and Plan (1) Abdominal pain Current Visit: Yes Status: Acute Code(s): R10.9 - UNSPECIFIED ABDOMINAL PAIN SNOMED Code(s): 45213807 (2) Diarrhea Current Visit: Yes Status: Acute Code(s): R19.7 - DIARRHEA, UNSPECIFIED SNOMED Code(s): 03116077 (3) Elevated troponin Current Visit: Yes Status: Acute Code(s): R77.8 - OTHER SPECIFIED ABNORMALITIES OF PLASMA PROTEINS SNOMED Code(s): 256892409 (4) Essential (primary) hypertension Current Visit: Yes Status: Acute Code(s): I10 - ESSENTIAL (PRIMARY) HYPERTENSION SNOMED Code(s): 73340073 (5) H/O myocardial infarction, greater than 8 weeks Current Visit: Yes Status: Acute Code(s): I25.2 - OLD MYOCARDIAL INFARCTION SNOMED Code(s): 3929780 (6) IPF (idiopathic pulmonary fibrosis) Current Visit: Yes Status: Acute Code(s): J84.112 - IDIOPATHIC PULMONARY FIBROSIS SNOMED Code(s): 620800923 (7) Immunosuppression Current Visit: Yes Status: Acute Code(s): D84.9 - IMMUNODEFICIENCY, UNSPECIFIED SNOMED Code(s): 41638887 (8) Microcytic anemia Current Visit: Yes Status: Acute Code(s): D50.9 - IRON DEFICIENCY ANEMIA, UNSPECIFIED SNOMED Code(s): 336690952 (9) Mixed hyperlipidemia Current Visit: Yes Status: Acute Code(s): E78.2 - MIXED HYPERLIPIDEMIA SNOMED Code(s): 077083881 (10) CKD (chronic kidney disease), stage III Current Visit: No Status: Acute Code(s): N18.30 - CHRONIC KIDNEY DISEASE, STAGE 3 UNSPECIFIED SNOMED Code(s): 578880171 Plan: Awaiting results of C. diff neg, will start by mouth Flagyl 250 mg twice daily IV antibiotics Inhaled corticosteroids inhaled DuoNeb Continue home meds for hypertension oxygen to maintain sats Time with Patient: Greater than 30
[2021-10-21 17:10] LABS: Glucose,Whole Blood 151 mg/dL (70-110)
[2021-10-21 19:56] LABS: Glucose,Whole Blood 145 mg/dL (70-110)
[2021-10-21] MEDS: CHOLECALCIFEROL 25 MCG (1000 IU) TABLET PO SCH (21:02)
[2021-10-21] MEDS: VIT A,C & E-LUTEIN-MINERALS 1 EACH TAB PO SCH (21:02)
[2021-10-21] MEDS: SODIUM CHLORIDE 0.9% 1,000 ML IV SCH ×2 (21:06→23:45)
[2021-10-22 06:10] LABS: Glucose,Whole Blood 93 mg/dL (70-110)
[2021-10-22] MEDS: SUCRALFATE 1 GM TAB PO SCH ×3 (06:32→17:07)
[2021-10-22] MEDS: PANTOPRAZOLE 40 MG TABLET PO SCH (06:32)
[2021-10-22] MEDS: hydrALAZINE HCL 10 MG TAB PO SCH (06:32)
[2021-10-22] MEDS: metroNIDAZOLE 250 MG TABLET PO SCH ×3 (06:32→21:18)
[2021-10-22] MEDS: INSULIN ASPART (NovoLOG) 100 UNIT/ML VIAL SQ SCH ×4 (06:33→21:21)
[2021-10-22] MEDS: SYMBICORT 160-4.5 MCG INHALER INHALATION SCH ×2 (08:22→19:23)
--- NOTE | 2021-10-22 08:58 | P.PN ---
Subjective Progress Note Date: 10/22/21 Principal diagnosis: Colitis Patient still having loose stools he says. Denies abdominal pain. No rectal bleeding or melena. Tolerating diet. Objective - Vital Signs Vital signs: Vital Signs Temp 98.2 F 10/22/21 04:00 Pulse 90 10/22/21 04:00 Resp 18 10/22/21 04:00 BP 167/73 10/22/21 04:00 Pulse Ox 94 L 10/22/21 04:00 FiO2 Intake & Output 10/21/21 10/22/21 10/22/21 18:59 06:59 18:59 Intake Total 480 Output Total 400 300 Balance 80 -300 Intake: Oral 480 Output: Urine 400 300 - Exam Abdomen: Soft, nontender, nondistended - Labs CBC & Chem 7: 10/21/21 08:14 10/21/21 08:14 Labs: Abnormal Lab Results - Last 24 Hours (Table) 10/21/21 10/21/21 10/21/21 Range/Units 08:14 08:14 11:56 RBC 3.02 L (4.30-5.90) m/uL Hgb 8.4 L (13.0-17.5) gm/dL Hct 25.2 L (39.0-53.0) % RDW 20.8 H (11.5-15.5) % Plt Count 119 L (150-450) k/uL Blast Cells % 1 H* % Lymphocytes # (Manual) 0.34 L (1.0-4.8) k/uL Metamyelocytes # (Man) 0.13 H (0) k/uL Myelocytes # (Manual) 0.13 H (0) k/uL Blast Cells # (Man) 0.04 H (0) k/uL Nucleated RBCs 4 H (0-0) /100 WBC Potassium 3.4 L (3.5-5.1) mmol/L Chloride 114 H (98-107) mmol/L BUN 30 H (9-20) mg/dL Creatinine 1.89 H (0.66-1.25) mg/dL POC Glucose (mg/dL) 112 H (70-110) mg/dL Calcium 8.0 L (8.4-10.2) mg/dL 10/21/21 10/21/21 Range/Units 16:48 19:55 RBC (4.30-5.90) m/uL Hgb (13.0-17.5) gm/dL Hct (39.0-53.0) % RDW (11.5-15.5) % Plt Count (150-450) k/uL Blast Cells % % Lymphocytes # (Manual) (1.0-4.8) k/uL Metamyelocytes # (Man) (0) k/uL Myelocytes # (Manual) (0) k/uL Blast Cells # (Man) (0) k/uL Nucleated RBCs (0-0) /100 WBC Potassium (3.5-5.1) mmol/L Chloride (98-107) mmol/L BUN (9-20) mg/dL Creatinine (0.66-1.25) mg/dL POC Glucose (mg/dL) 151 H 145 H (70-110) mg/dL Calcium (8.4-10.2) mg/dL Assessment and Plan (1) Colitis Narrative/Plan: Patient seems to be doing slowly better. Still having loose stools. Continue Imodium. Continue regular diet. Current Visit: Yes Status: Acute Code(s): K52.9 - NONINFECTIVE GASTROENTERITIS AND COLITIS, UNSPECIFIED SNOMED Code(s): 57184110
[2021-10-22] MEDS: amLODIPine 5 MG TAB PO SCH ×2 (09:08→09:12)
[2021-10-22] MEDS: LORazepam 0.5 MG TAB PO SCH ×3 (09:12→21:20)
[2021-10-22] MEDS: ISOSORBIDE MONONITRATE ER 60 MG TAB.ER.24H PO SCH (09:12)
[2021-10-22] MEDS: carvediloL 12.5 MG TAB PO SCH ×2 (09:12→21:18)
[2021-10-22] MEDS: ASPIRIN 81 MG PO SCH (09:12)
[2021-10-22] MEDS: predniSONE 20 MG TAB PO SCH (09:12)
--- NOTE | 2021-10-22 09:42 | P.PN ---
Subjective Patient is seen in follow-up for acute kidney injury and chronic kidney disease. Renal function fairly stable as of yesterday. Has been voiding. Still having diarrhea. C. diff negative. Vital signs are stable. General: Awake. No acute distress. HEENT: Head exam is unremarkable. LUNGS: Breath sounds decreased. HEART: Rate and Rhythm are regular. ABDOMEN: Soft, no distention. Nontender. EXTREMITITES: No edema. Objective - Vital Signs Vital signs: Vital Signs Temp 98.1 F 10/22/21 08:00 Pulse 83 10/22/21 08:00 Resp 18 10/22/21 08:00 BP 150/64 10/22/21 08:00 Pulse Ox 94 L 10/22/21 08:00 FiO2 Intake & Output 10/21/21 10/22/21 10/22/21 18:59 06:59 18:59 Intake Total 480 240 Output Total 400 300 Balance 80 -300 240 Intake: Oral 480 240 Output: Urine 400 300 - Labs CBC & Chem 7: 10/21/21 08:14 10/21/21 08:14 Labs: Abnormal Lab Results - Last 24 Hours (Table) 10/21/21 10/21/21 10/21/21 Range/Units 08:14 08:14 11:56 RBC 3.02 L (4.30-5.90) m/uL Hgb 8.4 L (13.0-17.5) gm/dL Hct 25.2 L (39.0-53.0) % RDW 20.8 H (11.5-15.5) % Plt Count 119 L (150-450) k/uL Blast Cells % 1 H* % Lymphocytes # (Manual) 0.34 L (1.0-4.8) k/uL Metamyelocytes # (Man) 0.13 H (0) k/uL Myelocytes # (Manual) 0.13 H (0) k/uL Blast Cells # (Man) 0.04 H (0) k/uL Nucleated RBCs 4 H (0-0) /100 WBC Potassium 3.4 L (3.5-5.1) mmol/L Chloride 114 H (98-107) mmol/L BUN 30 H (9-20) mg/dL Creatinine 1.89 H (0.66-1.25) mg/dL POC Glucose (mg/dL) 112 H (70-110) mg/dL Calcium 8.0 L (8.4-10.2) mg/dL 10/21/21 10/21/21 Range/Units 16:48 19:55 RBC (4.30-5.90) m/uL Hgb (13.0-17.5) gm/dL Hct (39.0-53.0) % RDW (11.5-15.5) % Plt Count (150-450) k/uL Blast Cells % % Lymphocytes # (Manual) (1.0-4.8) k/uL Metamyelocytes # (Man) (0) k/uL Myelocytes # (Manual) (0) k/uL Blast Cells # (Man) (0) k/uL Nucleated RBCs (0-0) /100 WBC Potassium (3.5-5.1) mmol/L Chloride (98-107) mmol/L BUN (9-20) mg/dL Creatinine (0.66-1.25) mg/dL POC Glucose (mg/dL) 151 H 145 H (70-110) mg/dL Calcium (8.4-10.2) mg/dL Assessment and Plan Plan: Assessment: 1. Acute kidney injury mostly prerenal from poor intake and diarrhea. Creatinine 2.31 on admission and is fairly stable at 1.89 as of yesterday. CAT scan done 10/11/2021 showed nonobstructing renal calculi with right renal atrophy. No hydronephrosis noted. 2. 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 UA with 1+ protein. No blood. Patient does have positive BENIGNO and double-stranded DNA antibody. Rest serologies negative. Due to solitary functioning kidney and depressed GFR (~30), kidney biopsy was not done. Patient also refused the biopsy. 3. Abdominal pain and diarrhea. Surgery following. On Imodium. EGD and colonoscopy revealed antral gastritis and colitis of rectum and sigmoid colon. 4. Anemia of chronic kidney disease. Stool for occult blood negative. Also noted to be thrombocytopenic. Iron deficiency noted - status post IV iron. Hematology following. On Aranesp. 5. Metabolic acidosis secondary to acute kidney injury. Stable. 6. Hypertension with chronic kidney disease. 7. Pneumonia on antibiotics. Sputum culture positive for Haemophilus influenzae. 8. History of myelofibrosis and MGUS. Hematology/oncology following. 9. Moderate MR. 10. Hypokalemia from poor intake. Replaced. Plan: Maintain gentle IV hydration. Avoid nephrotoxins. Continue to monitor renal function and urine output. Would also benefit from rheumatology eval outpatient - BENIGNO positive. Double- stranded DNA antibody also positive with level of 13. This is improved from 73 last year. Morning labs pending. Increase dose of hydralazine.
--- NOTE | 2021-10-22 10:30 | P.PN ---
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 Patient also complains of abdominal pain which is chronic in nature has grossly enlarged spleen secondary to myelofibrosis currently on O2 3 L nasal cannula short of breath white cell count was 5.2 with a hemoglobin of 10.6 which is about his baseline. Suspicion for left lower lobe pneumonia current admission labs demonstrated creatinine of 2.3 sodium of 138 potassium of 3.9 troponin 0.9 10/20/2021 patient is status post EGD and colonoscopy discuss case with Dr. Reece he suggested the patient may have C. diff from the appearance of the colon Otherwise mild gastritis no active bleeding while signs are stable patient is afebrile we will start patient on Flagyl for C. diff protocol 10/21/2021 patient is awake alert oriented 3 but is unstable patient is afebrile C. diff C. diff toxin negative 10/22/2021 Patient is awake alert oriented 3 vital signs are stable patient is afebrile still complains of loose stool, otherwise improved BUN/creatinine creatinine back to baseline 30 creatinine 1.89 Objective - Vital Signs Vital signs: Vital Signs Temp 98.1 F 10/22/21 08:00 Pulse 83 10/22/21 08:00 Resp 18 10/22/21 08:00 BP 150/64 10/22/21 08:00 Pulse Ox 94 L 10/22/21 08:00 FiO2 Intake & Output 10/21/21 10/22/21 10/22/21 18:59 06:59 18:59 Intake Total 480 240 Output Total 400 300 100 Balance 80 -300 140 Intake: Oral 480 240 Output: Urine 400 300 Stool 100 - Exam General: [Patient awake, alert and oriented times 3. Patient in no acute distress.] HEENT: [PERRL. EOMI. No pharyngeal erythema or exudate.] Neck: [No adenopathy.] Cardiac: [Heart regular in rate and rhythm. No S3. No S4. No clicks, rubs. No murmur.] Lungs: [Clear to auscultation bilaterally.] Abdomen: [No mass. Grossly enlarged spleen on palpitation. Bowel sounds presnt and normoactive in all 4 quadrants. 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 CN II - XII grossly intact.] Lymphatic: [No adenopathy.] - Labs CBC & Chem 7: 10/21/21 08:14 10/21/21 08:14 Labs: Abnormal Lab Results - Last 24 Hours (Table) 10/21/21 10/21/21 10/21/21 Range/Units 08:14 11:56 16:48 RBC 3.02 L (4.30-5.90) m/uL Hgb 8.4 L (13.0-17.5) gm/dL Hct 25.2 L (39.0-53.0) % RDW 20.8 H (11.5-15.5) % Plt Count 119 L (150-450) k/uL Blast Cells % 1 H* % Lymphocytes # (Manual) 0.34 L (1.0-4.8) k/uL Metamyelocytes # (Man) 0.13 H (0) k/uL Myelocytes # (Manual) 0.13 H (0) k/uL Blast Cells # (Man) 0.04 H (0) k/uL Nucleated RBCs 4 H (0-0) /100 WBC POC Glucose (mg/dL) 112 H 151 H (70-110) mg/dL 10/21/21 Range/Units 19:55 RBC (4.30-5.90) m/uL Hgb (13.0-17.5) gm/dL Hct (39.0-53.0) % RDW (11.5-15.5) % Plt Count (150-450) k/uL Blast Cells % % Lymphocytes # (Manual) (1.0-4.8) k/uL Metamyelocytes # (Man) (0) k/uL Myelocytes # (Manual) (0) k/uL Blast Cells # (Man) (0) k/uL Nucleated RBCs (0-0) /100 WBC POC Glucose (mg/dL) 145 H (70-110) mg/dL Assessment and Plan Assessment: Acute exacerbation of COPD with left lower lobe pneumonia Acute hypoxic respiratory failure currently on 3 L nasal O2 Abdominal pain probably secondary to enlarged spleen Myelofibrosis Chronic kidney disease stage III Hypertension currently controlled 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 Obstructive sleep apnea currently untreated patient does not tolerate CPAP BPH Coronary artery disease with previous stent placement Hyperlipidemia On obstructive nephrolithiasis Abdominal aortic aneurysm slight increase in size on CAT scan findings (1) Abdominal pain Current Visit: Yes Status: Acute Code(s): R10.9 - UNSPECIFIED ABDOMINAL PAIN SNOMED Code(s): 63611510 (2) Diarrhea Current Visit: Yes Status: Acute Code(s): R19.7 - DIARRHEA, UNSPECIFIED SNOMED Code(s): 71363386 (3) Elevated troponin Current Visit: Yes Status: Acute Code(s): R77.8 - OTHER SPECIFIED ABNORMALITIES OF PLASMA PROTEINS SNOMED Code(s): 773033291 (4) Essential (primary) hypertension Current Visit: Yes Status: Acute Code(s): I10 - ESSENTIAL (PRIMARY) HYPERTENSION SNOMED Code(s): 78885006 (5) H/O myocardial infarction, greater than 8 weeks Current Visit: Yes Status: Acute Code(s): I25.2 - OLD MYOCARDIAL INFARCTION SNOMED Code(s): 3860658 (6) IPF (idiopathic pulmonary fibrosis) Current Visit: Yes Status: Acute Code(s): J84.112 - IDIOPATHIC PULMONARY FIBROSIS SNOMED Code(s): 341249335 (7) Immunosuppression Current Visit: Yes Status: Acute Code(s): D84.9 - IMMUNODEFICIENCY, UNSPECIFIED SNOMED Code(s): 06837479 (8) Microcytic anemia Current Visit: Yes Status: Acute Code(s): D50.9 - IRON DEFICIENCY ANEMIA, U NSPECIFIED SNOMED Code(s): 005067886 (9) Mixed hyperlipidemia Current Visit: Yes Status: Acute Code(s): E78.2 - MIXED HYPERLIPIDEMIA SNOMED Code(s): 332476000 (10) CKD (chronic kidney disease), stage III Current Visit: No Status: Acute Code(s): N18.30 - CHRONIC KIDNEY DISEASE, STAGE 3 UNSPECIFIED SNOMED Code(s): 727975319 Plan: results of C. diff neg, continue by mouth Flagyl 250 mg twice daily IV antibiotics Inhaled corticosteroids inhaled DuoNeb Gentle rehydration Continue home meds for hypertension oxygen to maintain sats Time with Patient: Greater than 30
[2021-10-22 10:37] LABS: Anisocytosis Moderate; HCT 28.8 % (39.0-53.0); HGB 9.5 gm/dL (13.0-17.5); Hypochromasia Slight; MCH 27.5 pg (25.0-35.0); MCHC 32.9 g/dL (31.0-37.0); MCV 83.5 fL (80.0-100.0); Mean Platelet Volume 12.2; Microcytosis Slight; Platelet Count 166 k/uL (150-450); Poikilocytosis Slight; RBC 3.44 m/uL (4.30-5.90); RDW 20.8 % (11.5-15.5)
[2021-10-22 11:06] LABS: Calcium 8.1 mg/dL (8.4-10.2); Potassium 3.7 mmol/L (3.5-5.1)
[2021-10-22 11:42] LABS: Glucose,Whole Blood 132 mg/dL (70-110)
[2021-10-22] MEDS: hydrALAZINE HCL 25 MG TAB PO SCH ×2 (12:36→17:08)
[2021-10-22 13:15] LABS: Band Neutrophils % 2 %; Metamyelocytes # (M) 0.13 k/uL (0); Metamyelocytes % 2 %; Myelocytes % 3 %; Neutrophils % (M) 82 %; Nucleated Red Blood Cells 3 /100 WBC (0-0); Total Cells Counted 200
[2021-10-22 13:16] LABS: Eosinophils # (M) 0.06 k/uL (0-0.7); Large Platelets Present; Lymphocytes # (M) 0.38 k/uL (1.0-4.8); Monocytes # (M) 0.38 k/uL (0-1.0); Myelocytes # (M) 0.19 k/uL (0); WBC 6.4 k/uL (3.8-10.6)
[2021-10-22 13:17] LABS: Polychromasia Present; Tear Drop Cells Present
[2021-10-22 16:44] LABS: Glucose,Whole Blood 165 mg/dL (70-110)
[2021-10-22] MEDS: SODIUM CHLORIDE 0.9% 1,000 ML IV SCH (16:49)
[2021-10-22] MEDS: CHOLECALCIFEROL 25 MCG (1000 IU) TABLET PO SCH (21:17)
[2021-10-22] MEDS: VIT A,C & E-LUTEIN-MINERALS 1 EACH TAB PO SCH (21:17)
[2021-10-23] MEDS: PANTOPRAZOLE 40 MG TABLET PO SCH (06:30)
[2021-10-23] MEDS: metroNIDAZOLE 250 MG TABLET PO SCH (06:30)
[2021-10-23] MEDS: SUCRALFATE 1 GM TAB PO SCH ×3 (06:30→17:39)
[2021-10-23] MEDS: hydrALAZINE HCL 25 MG TAB PO SCH ×3 (06:30→17:39)
[2021-10-23] MEDS: LORazepam 0.5 MG TAB PO SCH ×3 (08:16→21:33)
[2021-10-23] MEDS: ISOSORBIDE MONONITRATE ER 60 MG TAB.ER.24H PO SCH (08:17)
[2021-10-23] MEDS: predniSONE 20 MG TAB PO SCH (08:17)
[2021-10-23] MEDS: carvediloL 12.5 MG TAB PO SCH ×2 (08:17→21:33)
[2021-10-23] MEDS: amLODIPine 5 MG TAB PO SCH (08:17)
[2021-10-23] MEDS: ASPIRIN 81 MG PO SCH (08:17)
[2021-10-23] MEDS: SYMBICORT 160-4.5 MCG INHALER INHALATION SCH ×2 (08:43→19:55)
[2021-10-23 09:13] LABS: Calcium 7.8 mg/dL (8.4-10.2); Potassium 3.6 mmol/L (3.5-5.1); Total Protein 5.3 g/dL (6.3-8.2)
--- NOTE | 2021-10-23 09:20 | P.PN ---
Subjective Progress Note Date: 10/23/21 Principal diagnosis: Colitis Patient still having diarrhea. Lomotil was ordered as when necessary and patient does not believe he was provided with any yesterday. Denies abdominal pain. Tolerating diet. Objective - Vital Signs Vital signs: Vital Signs Temp 98 F 10/23/21 08:00 Pulse 76 10/23/21 08:00 Resp 18 10/23/21 08:00 BP 168/63 10/23/21 08:00 Pulse Ox 95 10/23/21 08:00 FiO2 Intake & Output 10/22/21 10/23/21 10/23/21 18:59 06:59 18:59 Intake Total 720 430 250 Output Total 200 200 300 Balance 520 230 -50 Intake: IV 430 10 Invasive Line 2 10 Invasive Line 3 20 10 Sodium Chloride 0.9% 1, 400 000 ml @ 50 mls/hr IV . Q20H [facility] Rx#:[id number] Oral 720 240 Output: Urine 200 Stool 200 200 100 Other: # Voids 2 # Bowel Movements 4 - Exam Abdomen: Soft, nontender, nondistended - Labs CBC & Chem 7: 10/22/21 10:08 10/23/21 08:03 Labs: Abnormal Lab Results - Last 24 Hours (Table) 10/22/21 10/22/21 10/22/21 Range/Units 10:08 10:08 11:40 RBC 3.44 L (4.30-5.90) m/uL Hgb 9.5 L (13.0-17.5) gm/dL Hct 28.8 L (39.0-53.0) % RDW 20.8 H (11.5-15.5) % Lymphocytes # (Manual) 0.38 L (1.0-4.8) k/uL Metamyelocytes # (Man) 0.13 H (0) k/uL Myelocytes # (Manual) 0.19 H (0) k/uL Nucleated RBCs 3 H (0-0) /100 WBC Chloride 110 H (98-107) mmol/L BUN 28 H (9-20) mg/dL Creatinine 1.95 H (0.66-1.25) mg/dL Glucose 114 H (74-99) mg/dL POC Glucose (mg/dL) 132 H (70-110) mg/dL Calcium 8.1 L (8.4-10.2) mg/dL Total Protein (6.3-8.2) g/dL Albumin (3.5-5.0) g/dL 10/22/21 10/23/21 Range/Units 16:43 08:03 RBC (4.30-5.90) m/uL Hgb (13.0-17.5) gm/dL Hct (39.0-53.0) % RDW (11.5-15.5) % Lymphocytes # (Manual) (1.0-4.8) k/uL Metamyelocytes # (Man) (0) k/uL Myelocytes # (Manual) (0) k/uL Nucleated RBCs (0-0) /100 WBC Chloride 109 H (98-107) mmol/L BUN 26 H (9-20) mg/dL Creatinine 1.80 H (0.66-1.25) mg/dL Glucose (74-99) mg/dL POC Glucose (mg/dL) 165 H (70-110) mg/dL Calcium 7.8 L (8.4-10.2) mg/dL Total Protein 5.3 L (6.3-8.2) g/dL Albumin 3.0 L (3.5-5.0) g/dL Assessment and Plan (1) Colitis Narrative/Plan: Patient doing well today. Will order scheduled Lomotil at this time. Ambulate. Current Visit: Yes Status: Acute Code(s): K52.9 - NONINFECTIVE GASTROENTERITIS AND COLITIS, UNSPECIFIED SNOMED Code(s): 93768441
--- NOTE | 2021-10-23 10:32 | XR ---
EXAMINATION TYPE: XR chest 1V portable DATE OF EXAM: 10/23/2021 CLINICAL HISTORY: Difficulty breathing progress study. TECHNIQUE: Single AP portable upright view of the chest is obtained. COMPARISON: Chest x-ray from 6 days earlier FINDINGS: Diminished inspiration current study. Chronic parenchymal changes bilaterally without susp icious new focal airspace opacity, pleural effusion, or pneumothorax seen. Cardiac silhouette size st able and within normal limits with atherosclerotic change thoracic aorta. Osseous structures are inta ct. IMPRESSION: Chronic changes without new acute infiltrate.
[2021-10-23] MEDS ORDERED: POTASSIUM CHLORIDE ER 20 MEQ TAB.ER PO STA (10:43)
--- NOTE | 2021-10-23 10:45 | P.PN ---
Subjective Patient is seen in follow-up for acute kidney injury and chronic kidney disease. Renal function fairly stable. Has been voiding. Still having diarrhea. C. diff negative. Vital signs are stable. General: Awake. No acute distress. HEENT: Head exam is unremarkable. LUNGS: Breath sounds decreased. HEART: Rate and Rhythm are regular. ABDOMEN: Soft, no distention. Nontender. EXTREMITITES: No edema. Objective - Vital Signs Vital signs: Vital Signs Temp 98 F 10/23/21 08:00 Pulse 76 10/23/21 08:00 Resp 18 10/23/21 08:00 BP 168/63 10/23/21 08:00 Pulse Ox 95 10/23/21 08:00 FiO2 Intake & Output 10/22/21 10/23/21 10/23/21 18:59 06:59 18:59 Intake Total 720 430 250 Output Total 200 200 300 Balance 520 230 -50 Intake: IV 430 10 Invasive Line 2 10 Invasive Line 3 20 10 Sodium Chloride 0.9% 1, 400 000 ml @ 50 mls/hr IV . Q20H [facility] Rx#:[id number] Oral 720 240 Output: Urine 200 Stool 200 200 100 Other: # Voids 2 # Bowel Movements 4 - Labs CBC & Chem 7: 10/22/21 10:08 10/23/21 08:03 Labs: Abnormal Lab Results - Last 24 Hours (Table) 10/22/21 10/22/21 10/22/21 Range/Units 10:08 10:08 11:40 RBC 3.44 L (4.30-5.90) m/uL Hgb 9.5 L (13.0-17.5) gm/dL Hct 28.8 L (39.0-53.0) % RDW 20.8 H (11.5-15.5) % Lymphocytes # (Manual) 0.38 L (1.0-4.8) k/uL Metamyelocytes # (Man) 0.13 H (0) k/uL Myelocytes # (Manual) 0.19 H (0) k/uL Nucleated RBCs 3 H (0-0) /100 WBC Chloride 110 H (98-107) mmol/L BUN 28 H (9-20) mg/dL Creatinine 1.95 H (0.66-1.25) mg/dL Glucose 114 H (74-99) mg/dL POC Glucose (mg/dL) 132 H (70-110) mg/dL Calcium 8.1 L (8.4-10.2) mg/dL Total Protein (6.3-8.2) g/dL Albumin (3.5-5.0) g/dL 10/22/21 10/23/21 Range/Units 16:43 08:03 RBC (4.30-5.90) m/uL Hgb (13.0-17.5) gm/dL Hct (39.0-53.0) % RDW (11.5-15.5) % Lymphocytes # (Manual) (1.0-4.8) k/uL Metamyelocytes # (Man) (0) k/uL Myelocytes # (Manual) (0) k/uL Nucleated RBCs (0-0) /100 WBC Chloride 109 H (98-107) mmol/L BUN 26 H (9-20) mg/dL Creatinine 1.80 H (0.66-1.25) mg/dL Glucose (74-99) mg/dL POC Glucose (mg/dL) 165 H (70-110) mg/dL Calcium 7.8 L (8.4-10.2) mg/dL Total Protein 5.3 L (6.3-8.2) g/dL Albumin 3.0 L (3.5-5.0) g/dL Assessment and Plan Plan: Assessment: 1. Acute kidney injury mostly prerenal from poor intake and diarrhea. Creatinine 2.31 on admission and is fairly stable at 1.3 today. CAT scan done 10/11/2021 showed nonobstructing renal calculi with right renal atrophy. No hydronephrosis noted. 2. 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 UA with 1+ protein. No blood. Patient does have positive BENIGNO and double-stranded DNA antibody. Rest serologies negative. Due to solitary functioning kidney and depressed GFR (~30), kidney biopsy was not done. Patient also refused the biopsy. 3. Abdominal pain and diarrhea. Surgery following. On Imodium. EGD and colonoscopy revealed antral gastritis and colitis of rectum and sigmoid colon. 4. Anemia of chronic kidney disease. Stool for occult blood negative. Also noted to be thrombocytopenic. Iron deficiency noted - status post IV iron. Hematology following. On Aranesp. 5. Metabolic acidosis secondary to acute kidney injury. Stable. 6. Hypertension with chronic kidney disease. 7. Pneumonia on antibiotics. Sputum culture positive for Haemophilus influenzae. 8. History of myelofibrosis and MGUS. Hematology/oncology following. 9. Moderate MR. 10. Hypokalemia from poor intake. Replaced. Plan: Maintain gentle IV hydration. Avoid nephrotoxins. Continue to monitor renal function and urine output. Would also benefit from rheumatology eval outpatient - BENIGNO positive. Double-str anded DNA antibody also positive with level of 13. This is improved from 73 last year. Increase dose of hydralazine further. Consider ID consult due to persistent diarrhea. Check stool culture. Oral vancomycin added. Replace potassium.
--- NOTE | 2021-10-23 10:57 | P.PN ---
Subjective Progress Note Date: 10/23/21 Principal diagnosis: Acute exacerbation of chronic COPD, anemia secondary to myelofibrosis, acute kidney injury improved Sergey is an 81-year-old male well-known to my practice known history of COPD and myelofibrosis with other comorbidities, patient has O2 dependent nont pratik currently steroid dependent but has been on corticosteroids off and on over the last 5 years, does not tolerate CPAP, remote history of embolism on no anticoagulant therapy (did not tolerate). Patient also complains of abdominal pain which is chronic in nature has grossly enlarged spleen secondary to myelofibrosis currently on O2 3 L nasal cannula short of breath white cell count was 5.2 with a hemoglobin of 10.6 which is about his baseline. Suspicion for left lower lobe pneumonia current admission labs demonstrated creatinine of 2.3 sodium of 138 potassium of 3.9 troponin 0.9 10/20/2021 patient is status post EGD and colonoscopy discuss case with Dr. Reece he suggested the patient may have C. diff from the appearance of the colon Otherwise mild gastritis no active bleeding while signs are stable patient is afebrile we will start patient on Flagyl for C. diff protocol 10/21/2021 patient is awake alert oriented 3 but is unstable patient is afebrile C. diff C. diff toxin negative 10/22/2021 Patient is awake alert oriented 3 vital signs are stable patient is afebrile still complains of loose stool, otherwise improved BUN/creatinine creatinine back to baseline 30 creatinine 1.89 10/23/2021 Patient is awake alert oriented 3 vital signs are stable patient is afebrile, loose stool has improved, renal function back to baseline, Objective - Vital Signs Vital signs: Vital Signs Temp 98 F 10/23/21 08:00 Pulse 76 10/23/21 08:00 Resp 18 10/23/21 08:00 BP 168/63 10/23/21 08:00 Pulse Ox 95 10/23/21 08:00 FiO2 Intake & Output 10/22/21 10/23/21 10/23/21 18:59 06:59 18:59 Intake Total 720 430 250 Output Total 200 200 300 Balance 520 230 -50 Intake: IV 430 10 Invasive Line 2 10 Invasive Line 3 20 10 Sodium Chloride 0.9% 1, 400 000 ml @ 50 mls/hr IV . Q20H [facility] Rx#:[id number] Oral 720 240 Output: Urine 200 Stool 200 200 100 Other: # Voids 2 # Bowel Movements 4 - Exam General: [Patient awake, alert and oriented times 3. Patient in no acute distress.] HEENT: [PERRL. EOMI. No pharyngeal erythema or exudate.] Neck: [No adenopathy.] Cardiac: [Heart regular in rate and rhythm. No S3. No S4. No clicks, rubs. No murmur.] Lungs: [Clear to auscultation bilaterally. Diminished Abdomen: [No mass. Grossly enlarged spleen on palpitation. Bowel sounds presnt and normoactive in all 4 quadrants. 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 CN II - XII grossly intact.] Lymphatic: [No adenopathy.] - Labs CBC & Chem 7: 10/22/21 10:08 10/23/21 08:03 Labs: Abnormal Lab Results - Last 24 Hours (Table) 10/22/21 10/22/21 10/22/21 Range/Units 10:08 10:08 11:40 RBC 3.44 L (4.30-5.90) m/uL Hgb 9.5 L (13.0-17.5) gm/dL Hct 28.8 L (39.0-53.0) % RDW 20.8 H (11.5-15.5) % Lymphocytes # (Manual) 0.38 L (1.0-4.8) k/uL Metamyelocytes # (Man) 0.13 H (0) k/uL Myelocytes # (Manual) 0.19 H (0) k/uL Nucleated RBCs 3 H (0-0) /100 WBC Chloride 110 H (98-107) mmol/L BUN 28 H (9-20) mg/dL Creatinine 1.95 H (0.66-1.25) mg/dL Glucose 114 H (74-99) mg/dL POC Glucose (mg/dL) 132 H (70-110) mg/dL Calcium 8.1 L (8.4-10.2) mg/dL Total Protein (6.3-8.2) g/dL Albumin (3.5-5.0) g/dL 10/22/21 10/23/21 Range/Units 16:43 08:03 RBC (4.30-5.90) m/uL Hgb (13.0-17.5) gm/dL Hct (39.0-53.0) % RDW (11.5-15.5) % Lymphocytes # (Manual) (1.0-4.8) k/uL Metamyelocytes # (Man) (0) k/uL Myelocytes # (Manual) (0) k/uL Nucleated RBCs (0-0) /100 WBC Chloride 109 H (98-107) mmol/L BUN 26 H (9-20) mg/dL Creatinine 1.80 H (0.66-1.25) mg/dL Glucose (74-99) mg/dL POC Glucose (mg/dL) 165 H (70-110) mg/dL Calcium 7.8 L (8.4-10.2) mg/dL Total Protein 5.3 L (6.3-8.2) g/dL Albumin 3.0 L (3.5-5.0) g/dL Assessment and Plan Assessment: Acute exacerbation of COPD with left lower lobe pneumonia Acute hypoxic respiratory failure currently on 3 L nasal O2 Abdominal pain probably secondary to enlarged spleen Myelofibrosis Chronic kidney disease stage III Hypertension currently controlled 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 Obstructive sleep apnea currently untreated patient does not tolerate CPAP BPH Diarrhea improving Coronary artery disease with previous stent placement Hyperlipidemia On obstructive nephrolithiasis Abdominal aortic aneurysm slight increase in size on CAT scan findings (1) Abdominal pain Current Visit: Yes Status: Acute Code(s): R10.9 - UNSPECIFIED ABDOMINAL PAIN SNOMED Code(s): 81645425 (2) Diarrhea Current Visit: Yes Status: Acute Code(s): R19.7 - DIARRHEA, UNSPECIFIED SNOMED Code(s): 68854535 (3) Elevated troponin Current Visit: Yes Status: Acute Code(s): R77.8 - OTHER SPECIFIED ABNORMALITIES OF PLASMA PROTEINS SNOMED Code(s): 847860075 (4) Essential (primary) hypertension Current Visit: Yes Status: Acute Code(s): I10 - ESSENTIAL (PRIMARY) HYPERTENSION SNOMED Code(s): 78165888 (5) H/O myocardial infarction, greater than 8 weeks Current Visit: Yes Status: Acute Code(s): I25.2 - OLD MYOCARDIAL INFARCTION SNOMED Code(s): 4959779 (6) IPF (idiopathic pulmonary fibrosis) Current Visit: Yes Status: Acute Code(s): J84.112 - IDIOPATHIC PULMONARY FIBROSIS SNOMED Code(s): 595428010 (7) Immunosuppression Current Visit: Yes Status: Acute Code(s): D84.9 - IMMUNODEFICIENCY, UNSPECIFIED SNOMED Code(s): 05869865 (8) Microcytic anemia Current Visit: Yes Status: Acute Code(s): D50.9 - IRON DEFICIENCY ANEMIA, UNSPECIFIED SNOMED Code(s): 883661839 (9) Mixed hyperlipidemia Current Visit: Yes Status: Acute Code(s): E78.2 - MIXED HYPERLIPIDEMIA SNOMED Code(s): 585570515 (10) CKD (chronic kidney disease), stage III Current Visit: No Status: Acute Code(s): N18.30 - CHRONIC KIDNEY DISEASE, STAGE 3 UNSPECIFIED SNOMED Code(s): 114532203 Plan: results of C. diff neg, switched to 125 mg vancomycin by mouth 4 times a day Loose stool improving IV antibiotics Inhaled corticosteroids inhaled DuoNeb Gentle rehydration Continue home meds for hypertension oxygen to maintain sats Time with Patient: Greater than 30
[2021-10-23] MEDS: DIPHENOX-ATROP 2.5-0.025 MG 1 EACH TAB PO SCH ×4 (12:06→21:42)
[2021-10-23] MEDS: VANCOMYCIN 125 MG CAPSULE PO SCH ×3 (12:06→23:52)
[2021-10-23] MEDS: SODIUM CHLORIDE 0.9% 1,000 ML IV SCH (12:07)
[2021-10-23] MEDS: CHOLECALCIFEROL 25 MCG (1000 IU) TABLET PO SCH (21:32)
[2021-10-23] MEDS: VIT A,C & E-LUTEIN-MINERALS 1 EACH TAB PO SCH (23:53)
[2021-10-24] MEDS: PANTOPRAZOLE 40 MG TABLET PO SCH (06:09)
[2021-10-24] MEDS: SUCRALFATE 1 GM TAB PO SCH ×3 (06:09→17:39)
[2021-10-24] MEDS: hydrALAZINE HCL 25 MG TAB PO SCH ×3 (06:10→17:39)
[2021-10-24 07:07] LABS: ANA Pattern Speckled
[2021-10-24] MEDS: SYMBICORT 160-4.5 MCG INHALER INHALATION SCH ×2 (07:46→20:05)
[2021-10-24] MEDS: ASPIRIN 81 MG PO SCH (09:45)
[2021-10-24] MEDS: carvediloL 12.5 MG TAB PO SCH ×2 (09:46→20:18)
[2021-10-24] MEDS: ISOSORBIDE MONONITRATE ER 60 MG TAB.ER.24H PO SCH (09:46)
[2021-10-24] MEDS: LORazepam 0.5 MG TAB PO SCH ×3 (09:46→20:19)
[2021-10-24] MEDS: amLODIPine 5 MG TAB PO SCH (09:46)
[2021-10-24] MEDS: VANCOMYCIN 125 MG CAPSULE PO SCH ×4 (09:47→20:19)
[2021-10-24] MEDS: predniSONE 20 MG TAB PO SCH (09:51)
[2021-10-24] MEDS: DIPHENOX-ATROP 2.5-0.025 MG 1 EACH TAB PO SCH ×4 (09:58→20:19)
--- NOTE | 2021-10-24 11:28 | P.PN ---
Subjective Progress Note Date: 10/24/21 CHIEF COMPLAINT: Anemia HISTORY OF PRESENT ILLNESS: Surgical service following regards to patient's anemia. Patient is status post EGD and colonoscopy that demonstrated antral gastritis and colitis of the rectum and sigmoid colon and left colon. Biopsy results that shown chronic gastritis and acute colitis with mucosal erosion and pseudomembrane formation. C. diff colitis specimen was negative. Patient reports that the diarrhea has improved with the scheduled Lomotil. No blood reported in stools. Afebrile. last HGB 9.5 on 10/22 PHYSICAL EXAM: VITAL SIGNS: Reviewed. GENERAL: Well-developed in no acute distress. HEENT: No sclera icterus. Extraocular movements grossly intact. Moist buccal mucosa. Head is atraumatic, normocephalic. ABDOMEN: Soft. Nondistended. Nontender. NEUROLOGIC: Alert and oriented. Cranial nerves II through XII grossly intact. ASSESSMENT: 1. Anemia status post EGD and colonoscopy that demonstrated antral gastritis and colitis of the rectum and sigmoid colon and left colon PLAN: -Continue regular diet -Continue antibiotics for colitis -Continue Lomotil -Continue supportive care -Encouraged patient to ambulate Physician Desk Director note has been reviewed by physician. Signing provider agrees with the documented findings, assessment, and plan of care. Objective - Vital Signs Vital signs: Vital Signs Temp 97.4 F L 10/24/21 04:00 Pulse 77 10/24/21 04:00 Resp 17 10/24/21 04:00 BP 130/75 10/24/21 04:00 Pulse Ox 93 L 10/24/21 04:00 FiO2 21 10/23/21 19:56 Intake & Output 10/23/21 10/24/21 10/24/21 18:59 06:59 18:59 Intake Total 500 20 236 Output Total 400 675 150 Balance 100 -655 86 Intake: IV 20 20 Invasive Line 3 20 20 Oral 480 236 Output: Urine 200 675 150 Stool 200 Other: Voiding Method Bedside Commode Urinal Diaper # Voids 3 # Bowel Movements 1 - Labs CBC & Chem 7: 10/22/21 10:08 10/23/21 08:03
[2021-10-24 12:52] VITALS: BMI 21.9
[2021-10-24] MEDS: SODIUM CHLORIDE 0.9% 1,000 ML IV SCH (12:58)
[2021-10-24] MEDS: LACTOBACILLUS ACIDOPH & BULGAR 1 EACH PACKET PO SCH ×3 (12:59→21:13)
[2021-10-24 13:45] LABS: Anisocytosis Moderate; HCT 26.8 % (39.0-53.0); HGB 9.1 gm/dL (13.0-17.5); Hypochromasia Slight; MCH 28.2 pg (25.0-35.0); MCHC 33.9 g/dL (31.0-37.0); MCV 83.3 fL (80.0-100.0); Mean Platelet Volume 11.8; Microcytosis Slight; Platelet Count 187 k/uL (150-450); Poikilocytosis Slight; RBC 3.21 m/uL (4.30-5.90); WBC 8.5 k/uL (3.8-10.6)
[2021-10-24 15:09] LABS: Band Neutrophils % 2 %; Eosinophils # (M) 0.09 k/uL (0-0.7); Lymphocytes # (M) 0.43 k/uL (1.0-4.8); Metamyelocytes # (M) 0.09 k/uL (0); Metamyelocytes % 1 %; Monocytes # (M) 0.17 k/uL (0-1.0); Myelocytes # (M) 0.09 k/uL (0); Myelocytes % 1 %; Neutrophils % (M) 89 %; Nucleated Red Blood Cells 0 /100 WBC (0-0); Total Cells Counted 200
[2021-10-24 15:10] LABS: Polychromasia Present; Tear Drop Cells Present
[2021-10-24] MEDS: metroNIDAZOLE-NS PMX 500 MG in SALINE 1 100ML.BAG IVPB SCH ×2 (16:24→23:31)
--- NOTE | 2021-10-24 18:07 | P.PN ---
Subjective Progress Note Date: 10/24/21 Acute exacerbation of chronic COPD, anemia secondary to myelofibrosis, acute kidney injury improved Sergey is an 81-year-old male well-known to my practice known history of COPD and myelofibrosis with other comorbidities, patient has O2 dependent nontender currently steroid dependent but has been on corticosteroids off and on over the last 5 years, does not tolerate CPAP, remote history of embolism on no anticoagulant therapy (did not tolerate). Patient also complains of abdominal pain which is chronic in nature has grossly enlarged spleen secondary to myelofibrosis currently on O2 3 L nasal cannula short of breath white cell count was 5.2 with a hemoglobin of 10.6 which is about his baseline. Suspicion for left lower lobe pneumonia current admission labs demonstrated creatinine of 2.3 sodium of 138 potassium of 3.9 troponin 0.9 10/20/2021 patient is status post EGD and colonoscopy discuss case with Dr. Reece he suggested the patient may have C. diff from the appearance of the c olon Otherwise mild gastritis no active bleeding while signs are stable patient is afebrile we will start patient on Flagyl for C. diff protocol 10/21/2021 patient is awake alert oriented 3 but is unstable patient is afebrile C. diff C. diff toxin negative 10/22/2021 Patient is awake alert oriented 3 vital signs are stable patient is afebrile still complains of loose stool, otherwise improved BUN/creatinine creatinine back to baseline 30 creatinine 1.89 10/23/2021 Patient is awake alert oriented 3 vital signs are stable patient is afebrile, loose stool has improved, renal function back to baseline, Loose stool initially began as an outpatient when patient started taking Jakafi for the myelofibrosis. 10/24/2021 sitting up in chair, feels much better, good diet intake with no naus ea or vomiting. States it is his first day without diarrhea, on scheduled Lomotil. Reports minimal ambulation previously secondary to his diarrhea. Hemoglobin currently 9.1, platelets 187. Pathology reporting acute colitis with mucosal erosion and pseudomembranous colitis. Stool for C. diff reported negative. Denies chest pain, palpitations or shortness of breath. Denies lightheadedness, dizziness or focal deficits. Objective - Vital Signs Vital signs: Vital Signs Temp 97.5 F L 10/24/21 16:00 Pulse 82 10/24/21 16:00 Resp 17 10/24/21 16:00 BP 133/61 10/24/21 16:00 Pulse Ox 93 L 10/24/21 16:00 FiO2 21 10/23/21 19:56 Intake & Output 10/23/21 10/24/21 10/24/21 18:59 06:59 18:59 Intake Total 794 29 4536 Output Total 400 675 150 Balance 100 -655 1371 Weight 73.482 kg Intake: IV 20 20 Invasive Line 3 20 20 Intake, IV Titration 150 Amount cefTRIAXone 1 gm In 50 Sodium Chloride 0.9% 50 ml @ 100 mls/hr IVPB Q24HR [facility] Rx#:[id number] metroNIDAZOLE-NS PMX 500 100 mg In Saline 1 100ml.bag @ 100 mls/hr IVPB Q8HR [facility] Rx#:[id number] Oral 480 1371 Output: Urine 200 675 150 Stool 200 Other: Voiding Method Bedside Commode Toilet Urinal Urinal Diaper # Voids 3 # Bowel Movements 1 - Exam - Exam General: [Patient sitting up in chair, alert and oriented times 3, no acute distress.] HEENT: [PERRL. EOMI. No pharyngeal erythema or exudate.] Neck: Supple, no JVD Cardiac: [Heart regular in rate and rhythm. No S3. No S4. No clicks, rubs. No murmur.] Lungs: [Clear to auscultation bilaterally. Coarse, Diminished. Abdomen: [No mass. Grossly enlarged spleen on palpitation. Bowel sounds presnt and normoactive in all 4 quadrants. 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 Skin: [No rash, warm and dry] Neurologic: [CN II - XII grossly intact, no focal deficits.] - Labs CBC & Chem 7: 10/24/21 13:16 10/23/21 08:03 Labs: Abnormal Lab Results - Last 24 Hours (Table) 10/24/21 Range/Units 13:16 RBC 3.21 L (4.30-5.90) m/uL Hgb 9.1 L (13.0-17.5) gm/dL Hct 26.8 L (39.0-53.0) % RDW 21.0 H (11.5-15.5) % Lymphocytes # (Manual) 0.43 L (1.0-4.8) k/uL Metamyelocytes # (Man) 0.09 H (0) k/uL Myelocytes # (Manual) 0.09 H (0) k/uL Assessment and Plan Assessment: Anemia status post EGD and colonoscopy reporting antral gastritis and colitis of the rectum and sigmoid colon and left colon, pathology reporting acute colitis with mucosal erosion and pseudomembranous colitis. Stool for C. diff reported negative. Acute exacerbation of COPD with left lower lobe pneumonia Acute hypoxic respiratory failure currently on 3 L nasal O2 Abdominal pain probably secondary to enlarged spleen Myelofibrosis 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 Chronic kidney disease stage III Hypertension currently controlled Obstructive sleep apnea currently untreated patient does not tolerate CPAP Idiopathic pulmonary fibrosis Immunosuppression BPH Diarrhea improving, C. difficile ruled out out Coronary artery disease with previous stent placement. No acute cardiac syndrome as per cardiology. Hyperlipidemia On obstructive nephrolithiasis Abdominal aortic aneurysm slight increase in size on CAT scan findings Grieving, recent of Plan: Continue on current medication regime ,monitoring and symptomatic treatment. Lactinex/probiotics added to med regimen. Dietary consult regarding colitis diet. Increase ambulation as tolerated. Discharge planning in progress for tomorrow with DC recommendations including antibiotic regimen and clearance as per surgery. The impression and plan of care has been dictated as directed. : I performed a history and examination of this patient, discussed the same with the dictator. I agree with the dictator's note ,documented as a scribe. Any additional findings or plans will be noted.
[2021-10-24] MEDS: CHOLECALCIFEROL 25 MCG (1000 IU) TABLET PO SCH (20:18)
[2021-10-24] MEDS: VIT A,C & E-LUTEIN-MINERALS 1 EACH TAB PO SCH (20:19)
[2021-10-25] MEDS: SUCRALFATE 1 GM TAB PO SCH ×3 (06:34→17:12)
[2021-10-25] MEDS: hydrALAZINE HCL 25 MG TAB PO SCH ×3 (06:34→17:11)
[2021-10-25] MEDS: PANTOPRAZOLE 40 MG TABLET PO SCH (06:34)
[2021-10-25] MEDS: SODIUM CHLORIDE 0.9% 1,000 ML IV SCH (06:35)
[2021-10-25] MEDS: SYMBICORT 160-4.5 MCG INHALER INHALATION SCH ×2 (07:22→19:10)
[2021-10-25 08:15] LABS: Potassium 4.1 mmol/L (3.5-5.1)
[2021-10-25 08:30] LABS: Anisocytosis Moderate; Basophils % (A) 1 %; Eosinophils # (A) 0.1 k/uL (0-0.7); Eosinophils % (A) 1 %; HCT 27.6 % (39.0-53.0); HGB 9.2 gm/dL (13.0-17.5); Hypochromasia Slight; Lymphocytes # (A) 0.8 k/uL (1.0-4.8); Lymphocytes % (A) 11 %; MCH 27.6 pg (25.0-35.0); MCHC 33.3 g/dL (31.0-37.0); MCV 82.8 fL (80.0-100.0); Mean Platelet Volume 11.6; Microcytosis Slight; Monocytes # (A) 0.4 k/uL (0-1.0); Monocytes % (A) 5 %; Neutrophils # (A) 5.6 k/uL (1.3-7.7); Neutrophils % (A) 78 %; Platelet Count 179 k/uL (150-450); Poikilocytosis Slight; RBC 3.33 m/uL (4.30-5.90); RDW 21.3 % (11.5-15.5); WBC 7.1 k/uL (3.8-10.6)
[2021-10-25] MEDS: metroNIDAZOLE-NS PMX 500 MG in SALINE 1 100ML.BAG IVPB SCH ×2 (09:53→17:12)
[2021-10-25] MEDS: VANCOMYCIN 125 MG CAPSULE PO SCH ×4 (09:54→20:34)
[2021-10-25] MEDS: LORazepam 0.5 MG TAB PO SCH ×3 (09:55→22:11)
[2021-10-25] MEDS: ISOSORBIDE MONONITRATE ER 60 MG TAB.ER.24H PO SCH (09:55)
[2021-10-25] MEDS: ASPIRIN 81 MG PO SCH (09:55)
[2021-10-25] MEDS: amLODIPine 5 MG TAB PO SCH (09:55)
[2021-10-25] MEDS: LACTOBACILLUS ACIDOPH & BULGAR 1 EACH PACKET PO SCH ×3 (09:55→20:33)
[2021-10-25] MEDS: carvediloL 12.5 MG TAB PO SCH ×2 (09:55→20:33)
[2021-10-25] MEDS: predniSONE 20 MG TAB PO SCH (09:55)
[2021-10-25] MEDS: DIPHENOX-ATROP 2.5-0.025 MG 1 EACH TAB PO SCH ×4 (10:26→22:11)
--- NOTE | 2021-10-25 13:31 | P.PN ---
Subjective Progress Note Date: 10/25/21 CHIEF COMPLAINT: Anemia HISTORY OF PRESENT ILLNESS: Surgical service following regards to patient's anemia. Patient is status post EGD and colonoscopy that demonstrated antral gastritis and colitis of the rectum and sigmoid colon and left colon. Biopsy results that shown chronic gastritis and acute colitis with mucosal erosion and pseudomembrane formation. C. diff colitis specimen was negative. Patient is complaining of diarrhea today. He had 2 bowel movements that were diarrhea this morning. Denies any abdominal pain. Overall does not feel much improvement. He denies any blood in stools. Afebrile. WBC 7.1 Hgb 9.2 platelets 179 creatinine 1.73 PHYSICAL EXAM: VITAL SIGNS: Reviewed. GENERAL: Well-developed in no acute distress. HEENT: No sclera icterus. Extraocular movements grossly intact. Moist buccal mucosa. Head is atraumatic, normocephalic. ABDOMEN: Soft. Nondistended. Nontender. NEUROLOGIC: Alert and oriented. Cranial nerves II through XII grossly intact. ASSESSMENT: 1. Anemia status post EGD and colonoscopy that demonstrated antral gastritis and colitis of the rectum and sigmoid colon and left colon PLAN: -Continue regular diet -Continue antibiotics for colitis. Flagyl added yesterday -Continue Lomotil -Continue supportive care -Encouraged patient to ambulate -Follow-up on stool culture Physician Geophysical Computer note has been reviewed by physician. Signing provider agrees with the documented findings, assessment, and plan of care. Objective - Vital Signs Vital signs: Vital Signs Temp 97.6 F 10/25/21 03:16 Pulse 80 10/25/21 06:33 Resp 14 10/25/21 03:16 BP 159/75 10/25/21 06:33 Pulse Ox 95 10/25/21 03:16 FiO2 21 10/23/21 19:56 Intake & Output 10/24/21 10/25/21 10/25/21 18:59 06:59 18:59 Intake Total 1521 650 240 Output Total 375 1225 Balance 1146 -575 240 Weight 73.482 kg Intake: IV 150 Sodium Chloride 0.9% 1, 150 000 ml @ 50 mls/hr IV . Q20H [facility] Rx#:[id number] Intake, IV Titration 150 100 Amount cefTRIAXone 1 gm In 50 Sodium Chloride 0.9% 50 ml @ 100 mls/hr IVPB Q24HR [facility] Rx#:[id number] metroNIDAZOLE-NS PMX 500 100 100 mg In Saline 1 100ml.bag @ 100 mls/hr IVPB Q8HR [facility] Rx#:[id number] Oral 1371 400 240 Output: Urine 375 1225 Other: Voiding Method Toilet Bedside Commode Urinal Urinal # Bowel Movements 1 - Labs CBC & Chem 7: 10/25/21 07:36 10/25/21 07:36 Labs: Abnormal Lab Results - Last 24 Hours (Table) 10/24/21 10/25/21 10/25/21 Range/Units 13:16 07:36 07:36 RBC 3.21 L 3.33 L (4.30-5.90) m/uL Hgb 9.1 L 9.2 L (13.0-17.5) gm/dL Hct 26.8 L 27.6 L (39.0-53.0) % RDW 21.0 H 21.3 H (11.5-15.5) % Lymphocytes # (Manual) 0.43 L (1.0-4.8) k/uL Metamyelocytes # (Man) 0.09 H (0) k/uL Myelocytes # (Manual) 0.09 H (0) k/uL BUN 26 H (9-20) mg/dL Creatinine 1.73 H (0.66-1.25) mg/dL Calcium 8.0 L (8.4-10.2) mg/dL Microbiology - Last 24 Hours (Table) 10/25/21 08:39 Stool Culture - Preliminary Stool
[2021-10-25 13:42] LABS: Ovalocytes Present; Poikilocytosis (M) Present
--- NOTE | 2021-10-25 14:02 | P.PN ---
Subjective Patient is seen for follow-up for acute kidney injury on top of chronic kidney disease. Renal function has been fairly stable over the last 3-4 days with creatinine slightly decreased today at 1.7 from 1.8 yesterday. Patient continues to have diarrhea on and off although it is improved from initial admission. Currently not on any IV fluids or diuretics. No significant complaints today. 24 hour urine output at 1.6 L Objective - Vital Signs Vital signs: Vital Signs Temp 97.6 F 10/25/21 03:16 Pulse 80 10/25/21 06:33 Resp 14 10/25/21 03:16 BP 159/75 10/25/21 06:33 Pulse Ox 95 10/25/21 03:16 FiO2 21 10/23/21 19:56 Intake & Output 10/24/21 10/25/21 10/25/21 18:59 06:59 18:59 Intake Total 1521 650 240 Output Total 375 1225 Balance 1146 -575 240 Weight 73.482 kg Intake: IV 150 Sodium Chloride 0.9% 1, 150 000 ml @ 50 mls/hr IV . Q20H JOSE MANUEL Rx#:[id number] Intake, IV Titration 150 100 Amount cefTRIAXone 1 gm In 50 Sodium Chloride 0.9% 50 ml @ 100 mls/hr IVPB Q24HR JOSE MANUEL Rx#:[id number] metroNIDAZOLE-NS PMX 500 100 100 mg In Saline 1 100ml.bag @ 100 mls/hr IVPB Q8HR JOSE MANUEL Rx#:[id number] Oral 1371 400 240 Output: Urine 375 1225 Other: Voiding Method Toilet Bedside Commode Urinal Urinal # Bowel Movements 1 - Exam Awake, comfortable, not in any acute distress Examination of the heart S1 and S2 Examination lungs bilateral breath sounds are heard Abdomen is soft nontender Examination of the lower extremities shows trace edema bilaterally [employer] exam grossly intact - Labs CBC & Chem 7: 10/25/21 07:36 10/25/21 07:36 Labs: Abnormal Lab Results - Last 24 Hours (Table) 10/24/21 10/25/21 10/25/21 Range/Units 13:16 07:36 07:36 RBC 3.21 L 3.33 L (4.30-5.90) m/uL Hgb 9.1 L 9.2 L (13.0-17.5) gm/dL Hct 26.8 L 27.6 L (39.0-53.0) % RDW 21.0 H 21.3 H (11.5-15.5) % Lymphocytes # 0.8 L (1.0-4.8) k/uL Lymphocytes # (Manual) 0.43 L (1.0-4.8) k/uL Metamyelocytes # (Man) 0.09 H (0) k/uL Myelocytes # (Manual) 0.09 H (0) k/uL BUN 26 H (9-20) mg/dL Creatinine 1.73 H (0.66-1.25) mg/dL Calcium 8.0 L (8.4-10.2) mg/dL Microbiology - Last 24 Hours (Table) 10/25/21 08:39 Stool Culture - Preliminary Stool Assessment and Plan Assessment: 1. Acute kidney injury prerenal improved since admission with creatinine coming down from 2.3 to about 1.7 currently. Status post IV fluids. Computed tomography scan showed nonobstructive renal calculi with right renal atrophy [place] at no hydronephrosis noted. 2. CK D stage III B with baseline creatinine around 2 secondary to ischemic nephropathy. UA shows 1+ protein. No blood. Patient has had positive ANAs and double-stranded DNA. Patient has refused kidney biopsy previously. He has solitary functioning kidney with right renal atrophy. 3. Abdominal pain and diarrhea status post EGD and colonoscopy which revealed antral gastritis and colitis of the rectum and sigmoid colon. Symptomatically improved 4. Metabolic acidosis associated with acute kidney injury, improved 5. Pneumonia maintained on antibiotics. Sputum culture positive for Haemophilus influenza 6. History of myelofibrosis and MGUS Plan: Continue off of diuretics and IV fluids for now Avoid nephrotoxic agents Rheumatology evaluation as outpatient for positive ANAs and [id number]-[id number] DNA
[2021-10-25] MEDS: CHOLESTYRAMINE (WITH SUGAR) 4 GM PACKET PO SCH ×2 (15:32→17:12)
--- NOTE | 2021-10-25 15:43 | P.PN ---
Subjective Progress Note Date: 10/25/21 Acute exacerbation of chronic COPD, anemia secondary to myelofibrosis, acute kidney injury improved Sergey is an 81-year-old male well-known to my practice known history of COPD and myelofibrosis with other comorbidities, patient has O2 dependent nontender currently steroid dependent but has been on corticosteroids off and on over the last 5 years, does not tolerate CPAP, remote history of embolism on no anticoagulant therapy (did not tolerate). Patient also complains of abdominal pain which is chronic in nature has grossly enlarged spleen secondary to myelofibrosis currently on O2 3 L nasal cannula short of breath white cell count was 5.2 with a hemoglobin of 10.6 which is about his baseline. Suspicion for left lower lobe pneumonia current admission labs demonstrated creatinine of 2.3 sodium of 138 potassium of 3.9 troponin 0.9 10/20/2021 patient is status post EGD and colonoscopy discuss case with Dr. Reece he suggested the patient may have C. diff from the appearance of the c olon Otherwise mild gastritis no active bleeding while signs are stable patient is afebrile we will start patient on Flagyl for C. diff protocol 10/21/2021 patient is awake alert oriented 3 but is unstable patient is afebrile C. diff C. diff toxin negative 10/22/2021 Patient is awake alert oriented 3 vital signs are stable patient is afebrile still complains of loose stool, otherwise improved BUN/creatinine creatinine back to baseline 30 creatinine 1.89 10/23/2021 Patient is awake alert oriented 3 vital signs are stable patient is afebrile, loose stool has improved, renal function back to baseline, Loose stool initially began as an outpatient when patient started taking Jakafi for the myelofibrosis. 10/24/2021 sitting up in chair, feels much better, good diet intake with no naus ea or vomiting. States it is his first day without diarrhea, on scheduled Lomotil. Reports minimal ambulation previously secondary to his diarrhea. Hemoglobin currently 9.1, platelets 187. Pathology reporting acute colitis with mucosal erosion and pseudomembranous colitis. Stool for C. diff reported negative. Denies chest pain, palpitations or shortness of breath. Denies lightheadedness, dizziness or focal deficits. 10/25/2021 reports diarrhea has resumed, described as loose manager of organizational development brown without blood. Denies abdominal pain. Denies nausea or vomiting. Hemoglobin 9.2, platelets 179. Maintained on Flagyl, vancomycin. Afebrile, normal WBC. Creatinine stable. Objective - Vital Signs Vital signs: Vital Signs Temp 97.6 F 10/25/21 03:16 Pulse 80 10/25/21 06:33 Resp 14 10/25/21 03:16 BP 159/75 10/25/21 06:33 Pulse Ox 95 10/25/21 03:16 FiO2 21 10/23/21 19:56 Intake & Output 10/24/21 10/25/21 10/25/21 18:59 06:59 18:59 Intake Total 1521 650 480 Output Total 375 1225 550 Balance 1146 -575 -70 Weight 73.482 kg Intake: IV 150 Sodium Chloride 0.9% 1, 150 000 ml @ 50 mls/hr IV . Q20H JOSE MANUEL Rx#:[id number] Intake, IV Titration 150 100 Amount cefTRIAXone 1 gm In 50 Sodium Chloride 0.9% 50 ml @ 100 mls/hr IVPB Q24HR JOSE MANUEL Rx#:[id number] metroNIDAZOLE-NS PMX 500 100 100 mg In Saline 1 100ml.bag @ 100 mls/hr IVPB Q8HR JOSE MANUEL Rx#:[id number] Oral 1371 400 480 Output: Urine 375 1225 550 Other: Voiding Method Toilet Bedside Commode Urinal Urinal # Bowel Movements 1 - Exam - Exam General: [Patient sitting up in bed, alert and oriented times 3, no acute distress.] HEENT: [PERRL. EOMI. No pharyngeal erythema or exudate.] Neck: Supple, no JVD Cardiac: [Heart regular in rate and rhythm. No S3. No S4. No clicks, rubs. No murmur.] Lungs: [Clear to auscultation bilaterally. Coarse, Diminished. Abdomen: [No mass. Grossly enlarged spleen on palpitation. Bowel sounds presnt and normoactive in all 4 quadrants. 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 Skin: [No rash, warm and dry] Neurologic: [CN II - XII grossly intact, no focal deficits.] - Labs CBC & Chem 7: 10/25/21 07:36 10/25/21 07:36 Labs: Abnormal Lab Results - Last 24 Hours (Table) 10/25/21 10/25/21 Range/Units 07:36 07:36 RBC 3.33 L (4.30-5.90) m/uL Hgb 9.2 L (13.0-17.5) gm/dL Hct 27.6 L (39.0-53.0) % RDW 21.3 H (11.5-15.5) % Lymphocytes # 0.8 L (1.0-4.8) k/uL BUN 26 H (9-20) mg/dL Creatinine 1.73 H (0.66-1.25) mg/dL Calcium 8.0 L (8.4-10.2) mg/dL Microbiology - Last 24 Hours (Table) 10/25/21 08:39 Stool Culture - Preliminary Stool Assessment and Plan Assessment: Anemia status post EGD and colonoscopy reporting antral gastritis and colitis of the rectum and sigmoid colon and left colon, pathology reporting acute colitis with mucosal erosion and pseudomembranous colitis. Stool for C. diff reported negative. Acute exacerbation of COPD with left lower lobe pneumonia Acute hypoxic respiratory failure Abdominal pain probably secondary to enlarged spleen Myelofibrosis 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 Chronic kidney disease stage III Hypertension currently controlled Obstructive sleep apnea currently untreated patient does not tolerate CPAP Idiopathic pulmonary fibrosis Immunosuppression BPH Coronary artery disease with previous stent placement. No acute cardiac syndrome as per cardiology. Hyperlipidemia On obstructive nephrolithiasis Abdominal aortic aneurysm slight increase in size on CAT scan findings Grieving, recent of Plan: Continue on current medication regime ,monitoring and symptomatic treatment. Questran added to med regime . Maintain probiotics. Increase ambulation as tolerated. GI consulted regarding diarrhea, acute colitis with negative stool for c diff. Discharge planning in progress for tomorrow with DC recommendations including antibiotic regimen and clearance as per surgery/GI. The impression and plan of care has been dictated as directed. : I performed a history and examination of this patient, discussed the same with the dictator. I agree with the dictator's note ,documented as a scribe. Any additional findings or plans will be noted.
[2021-10-25] MEDS: VIT A,C & E-LUTEIN-MINERALS 1 EACH TAB PO SCH (20:33)
[2021-10-25] MEDS: CHOLECALCIFEROL 25 MCG (1000 IU) TABLET PO SCH (20:33)
[2021-10-26] MEDS: metroNIDAZOLE-NS PMX 500 MG in SALINE 1 100ML.BAG IVPB SCH ×3 (00:03→15:18)
[2021-10-26] MEDS: SODIUM CHLORIDE 0.9% 1,000 ML IV SCH (00:03)
[2021-10-26] MEDS: hydrALAZINE HCL 25 MG TAB PO SCH ×2 (06:27→13:39)
[2021-10-26] MEDS: PANTOPRAZOLE 40 MG TABLET PO SCH (06:28)
[2021-10-26] MEDS: SUCRALFATE 1 GM TAB PO SCH ×3 (06:28→17:25)
[2021-10-26] MEDS: SYMBICORT 160-4.5 MCG INHALER INHALATION SCH (09:03)
[2021-10-26 09:04] LABS: Magnesium 1.8 mg/dL (1.6-2.3); Potassium 3.8 mmol/L (3.5-5.1)
[2021-10-26] MEDS: CHOLESTYRAMINE (WITH SUGAR) 4 GM PACKET PO SCH ×3 (10:12→17:25)
[2021-10-26] MEDS: ISOSORBIDE MONONITRATE ER 60 MG TAB.ER.24H PO SCH (10:12)
[2021-10-26] MEDS: ASPIRIN 81 MG PO SCH (10:12)
[2021-10-26] MEDS: DIPHENOX-ATROP 2.5-0.025 MG 1 EACH TAB PO SCH (10:12)
[2021-10-26] MEDS: LACTOBACILLUS ACIDOPH & BULGAR 1 EACH PACKET PO SCH ×2 (10:12→15:17)
[2021-10-26] MEDS: VANCOMYCIN 125 MG CAPSULE PO SCH ×3 (10:13→17:25)
[2021-10-26] MEDS: amLODIPine 5 MG TAB PO SCH (10:13)
[2021-10-26] MEDS: carvediloL 12.5 MG TAB PO SCH (10:13)
[2021-10-26] MEDS: predniSONE 20 MG TAB PO SCH (10:13)
[2021-10-26] MEDS: LORazepam 0.5 MG TAB PO SCH ×2 (10:13→15:17)
--- NOTE | 2021-10-26 12:23 | P.CONS ---
History of Present Illness - Reason for Consult Consult date: 10/26/21 GERD, diarrhea Requesting physician: Ronal Hays - Chief Complaint Abdominal pain - History of Present Illness This is a 81-year-old male with a past medical history of COPD, pulmonary embolism, myelofibrosis, GERD, hyperlipidemia, hypertension, coronary artery disease, prostate disorder and peptic ulcer disease who presented to the emergency department with complaints of abdominal pain and shortness of breath. Patient states he's had diarrhea for the last 1 month's duration. Going up to 4 times a day. He was started approximately 1 month ago on Jakafi is myel ofibrosis and follows with oncology. It was stopped when he was admitted to the hospital 10/17/2021. During this admission he was seen by general surgery for diarrhea and possible GI bleed. He underwent EGD and colonoscopy done by Dr. Reece on 10/20/2021. EGD reported antral gastritis and colonoscopy colitis in the rectum, sigmoid and left colon. Biopsies were consistent with acute colitis. His stool tested negative for C. difficile toxin. He is currently on Flagyl and vancomycin. He's also been on Lomotil [id number] as well as was just started yesterday on Questran 3 times a day. He states there has been improvement in his bowel movements. He had only 2 yesterday and 1 today. He reports no blood or black stool. He does have associated abdominal cramping. He denies any nausea vomiting, fevers or chills. Review of Systems REVIEW OF SYSTEMS: CARDIOPULMONARY: No chest pain or shortness of breath. Gastrointestinal: Abdominal cramping. Frequent heartburn. No nausea or vomiting. No hematemesis, coffee-ground emesis. No rectal bleeding, or melena. Diarrhea for the last 1 month's duration, 2-4 per day. GENITOURINARY: No dysuria or hematuria. MUSCULOSKELETAL: Reports normal range of motion., Joint pain. SKIN: No rashes. No jaundice. ENDOCRINE: No chills, fevers. No excessive weight gain or loss. No polydipsia or polyuria. PSYCHIATRIC: Unremarkable. NEUROLOGY: No change in mental status. Denies dizziness, headache. ENT: Vision unremarkable. CONSTITUTIONAL: No recent weight loss. No fever, chills, night sweats. Past Medical History Past Medical History: Cancer, Chest Pain / Angina, COPD, GERD/Reflux, Hearing Disorder / Deafness, Hyperlipidemia, Hypertension, Myocardial Infarction (PR), Osteoarthritis (OA), Prostate Disorder, Pulmonary Embolus (PE) Additional Past Medical History / Comment(s): Interstitial lung disease, pulmonary fibrosis, PE in 2011-pt cannot recall laterality, past home O2 use but none now, RIA[place]-cannot tolerate Cpap, prostate cancer with radiation treatment, skin cancer with removals, nephrolithiasis, migraines, compression fracture low back, bilateral elbow fractures with surgery, PUD, jaundiced as a child, [place] bilaterally. "mild" PR in january 2020.Myelofibrosis Last Myocardial Infarction Date:: January 2020 History of Any Multi-Drug Resistant Organisms: None Reported Past Surgical History: Appendectomy, Cholecystectomy, Heart Catheterization, Heart Catheterization With Stent, Hernia Repair, Joint Replacement, Orthopedic Surgery Additional Past Surgical History / Comment(s): Prostate biopsy, L hand partial amp of 2 fingers, L knee ACL repair, R knee arthroscopy, bilateral total elbow replacements per pt, bilateral cataract removals, L inguinal hernia repair, cardiac caths x 2, EGD, colonoscopy, skin cancer removals. Past Anesthesia/Blood Transfusion Reactions: No Reported Reaction Date of Last Stent Placement:: January 2020. Past Psychological History: Anxiety, Depression Smoking Status: Former smoker Past Alcohol Use History: None Reported Past Drug Use History: None Reported - Past Family History Brother(s) Family Medical History: Cancer Additional Family Medical History / Comment(s): ONE BROTHER HAD LUNG CA & ANOTHER HAD MELANOMA. Brother just recently last week. Mother Family Medical History: AICD/Pacemaker Father Family Medical History: No Reported History Sister(s) Family Medical History: No Reported History Medications and Allergies Home Medications Medication Instructions Recorded Confirmed Type Pantoprazole Sodium [Protonix] 40 mg PO DAILY 03/08/16 10/16/21 History Vit C/E/Zn/Coppr/Lutein/Zeaxan 1 cap PO HS 12/12/18 10/16/21 History [Preservision Areds 2 Softgel] Sucralfate [Carafate] 1 gm PO AC-TID 07/16/21 10/16/21 History carvediloL [Coreg*] 12.5 mg PO BID 07/16/21 10/16/21 History lidocaine HCL [lidocaine HCL 5 ml MUCOUS MEM QID PRN 07/16/21 10/16/21 History Viscous] Cholecalciferol [Vitamin D3 (25 25 mcg PO HS 08/18/21 10/16/21 History Mcg = 1000 Iu)] Ergocalciferol (Vitamin D2) 1,250 mcg PO FR 08/18/21 10/16/21 History [Drisdol (50,000 Iu)] Super B Complex 1 tab PO HS 08/18/21 10/16/21 History Acetaminophen Tab [Tylenol] 650 mg PO Q6HR PRN tab 08/19/21 10/16/21 Rx LORazepam [Ativan] 0.5 mg PO TID 10/16/21 10/16/21 History amLODIPine [Norvasc] 5 mg PO DAILY 10/16/21 10/16/21 History Budesonide-Formot 160-4.5 Mcg 2 puff INHALATION RT-BID #1 inh 10/25/21 Rx [Symbicort 160-4.5 Mcg Inhaler] Isosorbide Mononitrate ER [Imdur] 60 mg PO DAILY #30 tab 10/25/21 Rx guaiFENesin [Mucinex] 600 mg PO Q12HR PRN tab 10/25/21 Rx hydrALAZINE HCL [Apresoline] 50 mg PO TID-W/MEALS #180 tab 10/25/21 Rx predniSONE 10 mg PO DIRECTED #30 tab 10/25/21 Rx Cholestyramine (with Sugar) 4 gm PO TID BETWEEN MEALS #30 10/26/21 Rx [Questran Packet] packet Diphenoxylate HCl/Atropine 1 tab PO Q6H PRN #0 10/26/21 10/16/21 Rx [Lomotil 2.5-0.025 mg Tablet] Vancomycin 125 mg PO QID #28 cap 10/26/21 Rx metroNIDAZOLE [Flagyl] 500 mg PO TID #21 tab 10/26/21 Rx Allergies Allergy/AdvReac Type Severity Reaction Status Date / Time alprazolam [From Xanax] AdvReac Confusion Verified 10/16/21 01:08 Physical Exam Vitals: Vital Signs Temp Pulse Pulse Pulse Resp BP Pulse Ox 10/26/21 03:17 97.9 F 79 16 136/50 94 L 10/26/21 00:00 98.0 F 76 16 142/61 96 10/25/21 19:43 97.6 F 84 16 146/53 95 10/25/21 16:00 97.5 F L 82 16 148/68 96 10/25/21 14:00 78 80 14 10/25/21 12:00 97.0 F L 78 14 136/62 95 Intake and Output 10/25/21 10/26/21 10/26/21 22:59 06:59 14:59 Intake Total 240 240 Output Total 550 550 Balance -310 -310 Intake: Oral 240 240 Output: Urine 550 550 Other: Voiding Method Bedside Commode Bedside Commode Urinal Urinal # Voids 1 General appearance: The patient is alert, oriented, appears in no acute distress. HET: Head is normocephalic and atraumatic. Conjunctiva pink. Sclera anicteric. Neck: Supple without lymphadenopathy. Trachea midline. Heart: S1 S2. Regular rate and rhythm. Lungs: Clear to auscultation. Abdomen: Soft, diffuse tenderness, nondistended with bowel sounds. No guarding or rigidity. Skin: No rashes. No jaundice. Extremities: Normal skin color and turgor. No pedal edema. Neurological: No focal deficits. Alert and oriented x3. Results CBC & Chem 7: 10/25/21 07:36 10/26/21 08:01 Labs: Abnormal Lab Results - Last 24 Hours (Table) 10/25/21 Range/Units 07:36 Lymphocytes # 0.8 L (1.0-4.8) k/uL Microbiology - Last 24 Hours (Table) 10/25/21 08:39 Stool Culture - Preliminary Stool Assessment and Plan (1) Colitis Narrative/Plan: 81-year-old male who was admitted to the hospital greater than 1 week ago was recently started on new medication for his myelofibrosis called Jakafi. Side effect of the medication includes diffuse diarrhea. He states that he's been having diarrhea since he started the medication up to 4 times a day. He has loss of continence. He started having abdominal cramping associated with the diarrhea. He also was having shortness of breath and came to the emergency department for further evaluation. The medication Jakafi has been stopped. He had a stool C. difficile toxin tested that was negative. He underwent EGD and colonoscopy by general surgery with findings of antral gastritis and colitis in the rectum, sigmoid and left colon. Biopsies were consistent with an acute colitis possible C. diff. Patient has been on Lomotil [id number] as well as when necessary. Yesterday Questran was started. He's been on Flagyl and oral vancomycin. Diarrhea is improving. No further plans on endoscopic evaluation continue current medical management Current Visit: Yes Status: Acute Code(s): K52.9 - NONINFECTIVE GASTROENTERITIS AND COLITIS, UNSPECIFIED SNOMED Code(s): 43609998 (2) Diarrhea Current Visit: Yes Status: Acute Code(s): R19.7 - DIARRHEA, UNSPECIFIED SNOMED Code(s): 26794026 (3) Abdominal pain Current Visit: Yes Status: Acute Code(s): R10.9 - UNSPECIFIED ABDOMINAL PAIN SNOMED Code(s): 68438605 (4) COPD (chronic obstructive pulmonary disease) Current Visit: No Status: Acute Code(s): J44.9 - CHRONIC OBSTRUCTIVE PULMONARY DISEASE, UNSPECIFIED SNOMED Code(s): 27105682 (5) Coronary artery disease Current Visit: No Status: Acute Code(s): I25.10 - ATHSCL HEART DISEASE OF [place] CORONARY ARTERY W/O ANG PCTRS SNOMED Code(s): 92549187 (6) Essential (primary) hypertension Current Visit: No Status: Acute Code(s): I10 - ESSENTIAL (PRIMARY) HYPE RTENSION SNOMED Code(s): 73471702 (7) Myelofibrosis Current Visit: No Status: Acute Code(s): D75.81 - MYELOFIBROSIS SNOMED Code(s): 50948058 Plan: 1. Continue symptomatic and supportive care 2. Continue current medical management 3. No plan for an endoscopic evaluation 4. Continue Lomotil, continue Questran 3 times a day 5. Continue antibiotics for a total of 10 days Thank you for this consultation, we'll continue to follow Dr. Denice Lowery I agree with the dictator's note, documented as a scribe by Paty Lima.
--- NOTE | 2021-10-26 13:49 | P.PN ---
Subjective Progress Note Date: 10/26/21 CHIEF COMPLAINT: Anemia HISTORY OF PRESENT ILLNESS: Patient reports that he is feeling better today. He had 2 episodes of diarrhea yesterday morning. Patient reports improvement of his Jeffy pain. Denies any nausea vomiting. Stool studies pending. Patient evaluated by GI service recommended medical management. Patient is status post EGD and colonoscopy that demonstrated antral gastritis and colitis of the rectum and sigmoid colon and left colon. Biopsy results that shown chronic gastritis and acute colitis with mucosal erosion and pseudomembrane formation. C. diff colitis specimen was negative. Afebrile. WBC 7.1 hemoglobin stable at 9.2 Patient seen and examined with Dr. rich PHYSICAL EXAM: VITAL SIGNS: Reviewed. GENERAL: Well-developed in no acute distress. HEENT: No sclera icterus. Extraocular movements grossly intact. Moist buccal mucosa. Head is atraumatic, normocephalic. ABDOMEN: Soft. Nondistended. NEUROLOGIC: Alert and oriented. Cranial nerves II through XII grossly intact. ASSESSMENT: 1. Colitis likely infectious 2. Anemia status post EGD and colonoscopy that demonstrated antral gastritis and colitis of the rectum and sigmoid colon and left colon PLAN: -Continue Flagyl -Continue regular diet -Continue Lomotil -Continue supportive care -Encouraged patient to ambulate -Follow-up on stool culture Physician Entry Level Electrician note has been reviewed by physician. Signing provider agrees with the documented findings, assessment, and plan of care. Objective - Vital Signs Vital signs: Vital Signs Temp 97.6 F 10/26/21 08:00 Pulse 82 10/26/21 08:00 Resp 19 10/26/21 08:00 BP 159/65 10/26/21 08:00 Pulse Ox 95 10/26/21 08:00 FiO2 21 10/23/21 19:56 Intake & Output 10/25/21 10/26/21 10/26/21 18:59 06:59 18:59 Intake Total 720 240 240 Output Total 650 550 Balance 70 -310 240 Intake: Oral 720 240 240 Output: Urine 550 550 Stool 100 Other: Voiding Method Bedside Commode Bedside Commode Toilet Urinal Urinal Urinal # Voids 1 - Labs CBC & Chem 7: 10/25/21 07:36 10/26/21 08:01 Labs: Abnormal Lab Results - Last 24 Hours (Table) 10/26/21 Range/Units 08:01 Sodium 136 L (137-145) mmol/L BUN 25 H (9-20) mg/dL Creatinine 1.73 H (0.66-1.25) mg/dL Calcium 8.0 L (8.4-10.2) mg/dL Microbiology - Last 24 Hours (Table) 10/25/21 08:39 Stool Culture - Preliminary Stool
--- NOTE | 2021-10-26 14:19 | P.PN ---
Subjective Progress Note Date: 10/24/21 He is still weak Objective - Vital Signs Vital signs: Vital Signs Temp 97.9 F 10/24/21 08:00 Pulse 85 10/24/21 08:00 Resp 16 10/24/21 08:00 BP 149/59 10/24/21 08:00 Pulse Ox 97 10/24/21 08:00 FiO2 21 10/23/21 19:56 Intake & Output 10/23/21 10/24/21 10/24/21 18:59 06:59 18:59 Intake Total 500 20 236 Output Total 400 675 150 Balance 100 -655 86 Weight 73.482 kg Intake: IV 20 20 Invasive Line 3 20 20 Oral 480 236 Output: Urine 200 675 150 Stool 200 Other: Voiding Method Bedside Commode Toilet Urinal Diaper # Voids 3 # Bowel Movements 1 - Exam - Constitutional General appearance: cooperative, no acute distress - EENT Eyes: EOMI ENT: NA/AT - Neck Neck: normal ROM - Respiratory Respiratory: bilateral: CTA - Cardiovascular Rhythm: regularly irregular - Gastrointestinal General gastrointestinal: distended, organomegaly - Integumentary Integumentary: pale - Musculoskeletal Musculoskeletal: generalized weakness - Psychiatric Psychiatric: A&O x's 3 - Labs CBC & Chem 7: 10/25/21 07:36 10/26/21 08:01 Assessment and Plan (1) Pneumonia Narrative/Plan: - Pulmonary following and managing - IV Abx Current Visit: Yes Status: Acute Code(s): J18.9 - PNEUMONIA, UNSPECIFIED ORGANISM SNOMED Code(s): 666580278 (2) CKD (chronic kidney disease), stage III Narrative/Plan: -Nephrology is following Acute on chronic, improving Current Visit: No Status: Acute Code(s): N18.30 - CHRONIC KIDNEY DISEASE, STAGE 3 UNSPECIFIED SNOMED Code(s): 335022834 (3) COPD (chronic obstructive pulmonary disease) Current Visit: No Status: Acute Code(s): J44.9 - CHRONIC OBSTRUCTIVE PULMONA RY DISEASE, UNSPECIFIED SNOMED Code(s): 16914088 (4) Myelofibrosis Narrative/Plan: Hold Jakafi with active infection/Inflam picture Current Visit: No Status: Acute Code(s): D75.81 - MYELOFIBROSIS SNOMED Code(s): 38420854 (5) MGUS (monoclonal gammopathy of unknown significance) Narrative/Plan: Stable Current Visit: No Status: Chronic Priority: Medium Code(s): D47.2 - MONO CLONAL GAMMOPATHY SNOMED Code(s): 889415356 (6) 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 - Ferritin is increased, therefore parental iron may not be beneficial at this time, although if active bleeding is seen would continue. - If suspicion of a systemic infection, hold off on parental iron. - Anemia with LDH over 1999, no evidence of hemolysis, DIC, possible Blood loss and surgery has been consulted for this. Status posy colonoscopy without evidence bleed. Current Visit: Yes Status: Acute Code(s): D50.9 - IRON DEFICIENCY ANEMIA, UNSPECIFIED SNOMED Code(s): 761866869 (9) Diarrhea Narrative/Plan: Status post colonscopy this am, no active bleed or mass C-diff colitis treatment Current Visit: Yes Status: Acute Code(s): R19.7 - DIARRHEA, UNSPECIFIED SNOMED Code(s): 14266942 (10) Influenza Current Visit: Yes Status: Acute Code(s): J11.1 - FLU DUE TO UNIDENTIFIED INFLUENZA VIRUS W OTH RESP MANIFEST SNOMED Code(s): 7942273 Plan: Slowly improving, Jakafii does not usually result in a colitis, but on hold at this time.
--- NOTE | 2021-10-26 14:23 | P.PN ---
Subjective Progress Note Date: 10/26/21 Status post EGD and COlonoscopy, two bouts of diarrhea overnight, still weak feeling a bit better Objective - Vital Signs Vital signs: Vital Signs Temp 98.0 F 10/26/21 12:00 Pulse 64 10/26/21 14:00 Resp 15 10/26/21 14:00 BP 114/55 10/26/21 12:00 Pulse Ox 93 L 10/26/21 12:00 FiO2 21 10/23/21 19:56 Intake & Output 10/25/21 10/26/21 10/26/21 18:59 06:59 18:59 Intake Total 720 240 240 Output Total 650 550 Balance 70 -310 240 Intake: Oral 720 240 240 Output: Urine 550 550 Stool 100 Other: Voiding Method Bedside Commode Bedside Commode Toilet Urinal Urinal # Voids 1 2 # Bowel Movements 2 - Exam - Constitutional General appearance: cooperative, no acute distress - EENT Eyes: EOMI ENT: NA/AT - Neck Neck: normal ROM - Respiratory Respiratory: bilateral: CTA - Cardiovascular Rhythm: regularly irregular - Gastrointestinal General gastrointestinal: distended, organomegaly - Integumentary Integumentary: pale - Musculoskeletal Musculoskeletal: generalized weakness - Psychiatric Psychiatric: A&O x's 3 - Labs CBC & Chem 7: 10/25/21 07:36 10/26/21 08:01 Labs: Abnormal Lab Results - Last 24 Hours (Table) 10/26/21 Range/Units 08:01 Sodium 136 L (137-145) mmol/L BUN 25 H (9-20) mg/dL Creatinine 1.73 H (0.66-1.25) mg/dL Calcium 8.0 L (8.4-10.2) mg/dL Microbiology - Last 24 Hours (Table) 10/25/21 08:39 Stool Culture - Preliminary Stool Assessment and Plan (1) Pneumonia Narrative/Plan: - Pulmonary following and managing - IV Abx Current Visit: Yes Status: Acute Code(s): J18.9 - PNEUMONIA, UNSPECIFIED ORGANISM SNOMED Code(s): 509962267 (2) CKD (chronic kidney disease), stage III Current Visit: No Status: Acute Code(s): N18.30 - CHRONIC KIDNEY DISEASE, STAGE 3 UNSPECIFIED SNOMED Code(s): 902971641 (3) COPD (chronic obstructive pulmonary disease) Current Visit: No Status: Acute Code(s): J44.9 - CHRONIC OBSTRUCTIVE PULMONARY DISEASE, UNSPECIFIED SNOMED Code(s): 40011738 (4) Myelofibrosis Narrative/Plan: Hold Jakafi with active infection/Inflam picture Current Visit: No Status: Acute Code(s): D75.81 - MYELOFIBROSIS SNOMED Code(s): 34775580 (5) MGUS (monoclonal gammopathy of unknown significance) Narrative/Plan: Stable Current Visit: No Status: Chronic Priority: Medium Code(s): D47.2 - MONOCLONAL GAMMOPATHY SNOMED Code(s): 726277647 (6) 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 - Ferritin is increased, therefore parental iron may not be beneficial at this time, although if active bleeding is seen would continue. - If suspicion of a systemic infection, hold off on parental iron. - Anemia with LDH over 1999, no evidence of hemolysis, DIC, possible Blood loss and surgery has been consulted for this. Status posy colonoscopy without evidence bleed. Current Visit: Yes Status: Acute Code(s): D50.9 - IRON DEFICIENCY ANEMIA, UNSPECIFIED SNOMED Code(s): 044835826 (9) Diarrhea Narrative/Plan: Status post colonscopy this am, no active bleed or mass C-diff colitis treatment Current Visit: Yes Status: Acute Code(s): R19.7 - DIARRHEA, UNSPECIFIED SNOMED Code(s): 64839402 (10) Influenza Current Visit: Yes Status: Acute Code(s): J11.1 - FLU DUE TO UNIDENTIFIED INFLUENZA VIRUS W OTH RESP MANIFEST SNOMED Code(s): 0890163 Plan: Continue supportive care.
--- NOTE | 2021-10-26 14:37 | P.PN ---
Subjective Patient is seen for follow-up for acute kidney injury on top of chronic kidney disease. Renal function has been fairly stable over the last 3-4 days with creatinine slightly decreased today at 1.7 from 1.8 yesterday. Patient continues to have diarrhea on and off although it is improved from initial admission. Currently not on any IV fluids or diuretics. No significant complaints today. 24 hour urine output at 1.1 L Objective - Vital Signs Vital signs: Vital Signs Temp 98.0 F 10/26/21 12:00 Pulse 64 10/26/21 14:00 Resp 15 10/26/21 14:00 BP 114/55 10/26/21 12:00 Pulse Ox 93 L 10/26/21 12:00 FiO2 21 10/23/21 19:56 Intake & Output 10/25/21 10/26/21 10/26/21 18:59 06:59 18:59 Intake Total 720 240 240 Output Total 650 550 Balance 70 -310 240 Intake: Oral 720 240 240 Output: Urine 550 550 Stool 100 Other: Voiding Method Bedside Commode Bedside Commode Toilet Urinal Urinal # Voids 1 2 # Bowel Movements 2 - Exam Awake, comfortable, not in any acute distress Examination of the heart S1 and S2 Examination lungs bilateral breath sounds are heard Abdomen is soft nontender Examination of the lower extremities shows trace edema bilaterally SALES SUPPORT TECHNICIAN exam grossly intact - Labs CBC & Chem 7: 10/25/21 07:36 10/26/21 08:01 Labs: Abnormal Lab Results - Last 24 Hours (Table) 10/26/21 Range/Units 08:01 Sodium 136 L (137-145) mmol/L BUN 25 H (9-20) mg/dL Creatinine 1.73 H (0.66-1.25) mg/dL Calcium 8.0 L (8.4-10.2) mg/dL Microbiology - Last 24 Hours (Table) 10/25/21 08:39 Stool Culture - Preliminary Stool Assessment and Plan Assessment: 1. Acute kidney injury prerenal improved since admission with creatinine coming down from 2.3 to about 1.7 currently. Status post IV fluids. Computed tomography scan showed nonobstructive renal calculi with right renal atrophy. No hydronephrosis noted. 2. CK D stage III B with baseline creatinine around 2 secondary to ischemic nephropathy. UA shows 1+ protein. No blood. Patient has had positive ANAs and double-stranded DNA. Patient has refused kidney biopsy previously. He has solitary functioning kidney with right renal atrophy. 3. Abdominal pain and diarrhea status post EGD and colonoscopy which revealed antral gastritis and colitis of the rectum and sigmoid colon. Symptomatically improved 4. Metabolic acidosis associated with acute kidney injury, improved 5. Pneumonia maintained on antibiotics. Sputum culture positive for Haemophilus influenza 6. History of myelofibrosis and MGUS Plan: Continue off of diuretics and IV fluids for now. Renal function is stable Avoid nephrotoxic agents Rheumatology evaluation as outpatient for positive ANAs and [id number]-[id number] DNA
[2021-10-26 17:00] VITALS: BP 132/70; PULSE 86; RESP 17; TEMP 98.5
[2021-10-26] MEDS ORDERED: metroNIDAZOLE 500 MG TAB PO SCH (22:00)
--- NOTE | 2021-10-27 12:49 | CDI ---
Documentation Clarification Form Date: 10/27/2021 12:28:26 PM From: Kayley Cordero Phone: Admit Date: 10/18/2021 12:10:00 PM Patient Name: Sergey Ward Visit Number: [id number] Discharge Date: 10/26/2021 07:56:00 PM ATTENTION: The Clinical Documentation Specialists (CDI) and [employer] Coding Staff appreciate your assistance in clarifying documentation. Please respond to the clarification below the line at the bottom and electronically sign. The CDI & [employer] Coding staff will review the response and follow-up if needed. Please note: Queries are made part of the Legal Health Record. If you have any questions, please contact the author of this message via ITS. Dr. Barrington Goyal Your patient has Acute Hypoxic RF, AE COPD w PNA, and O2 dependent. Based on this information and the findings below, is there an additional diagnosis that is clinically appropriate for this patient? History/Risk Factors: 81yo M, Acute Hypoxic RD, AE COPD w PNA, and O2 dependent, HTN w CKD 3b, splenomegaly r/t myelofibrosis, hx skin & prostate ca, anemia, chronic gastritis, Acutecolitiswith mucosalerosionand pseudo membraneformation(pseudomembranous colitis), - COVID & flu- Tobacco use: former Home oxygen: O2 dependent Clinical Indicators: O2 Sat by Pulse 92 L 93 L O2 Sat by Pulse 94 L 7/3 Lactate Dehydrogenase 2152 H (313-618) U/L Treatment: Continue current medical treatment; Continue antibiotics, IV steroids and breathing treatments; we will results of the final sputum culture; well continue to follow his clinical course Please clarify the diagnosis that is clinically appropriate for the O2 dependent diagnosis for this patient? [ ] Acute on Chronic Respiratory Failure with hypoxia [ ] Chronic Respiratory Failure [ ] Other Diagnosis, please specify [ ] Unable to determine (Template Last Revised: June 2020) MTDD
--- NOTE | 2021-10-27 14:21 | P.DS ---
Providers Date of admission: 10/18/21 12:10 Expected date of discharge: 10/26/21 Attending physician: Barrington Goyal Consults: 10/16/21 03:46 Consult Physician Routine Consulting Provider: Mansi Castillo Consult Reason/Comments: elevated troponin Do you want consulting provider notified?: Yes 10/16/21 21:31 Consult Physician Routine Consulting Provider: Anselmo Conrad Consult Reason/Comments: sees outpatient, sob Do you want consulting provider notified?: Yes 10/16/21 21:32 Consult Physician Routine Consulting Provider: Vega Henriquez Consult Reason/Comments: sees outpatient; on jakafi Do you want consulting provider notified?: Yes, Notify in am 10/17/21 10:51 Consult Physician Routine Consulting Provider: Mojgan Murrell Consult Reason/Comments: worsening CRF Do you want consulting provider notified?: Yes 10/17/21 21:42 Consult Physician Routine Consulting Provider: Rodriguez Reece Consult Reason/Comments: hgb drop; r/o gi bleed Do you want consulting provider notified?: Yes, Notify in am 10/25/21 13:45 Consult Physician Routine Consulting Provider: Lilliana Lowery Consult Reason/Comments: diarrhea epigastric pain Do you want consulting provider notified?: Yes Primary care physician: Barrington Goyal [place] [facility] Course: Final Diagnoses: Anemia status post EGD and colonoscopy reporting antral gastritis and colitis of the rectum and sigmoid colon and left colon, pathology reporting acute colitis with mucosal erosion and pseudomembranous colitis. Stool for C. diff reported negative. Acute exacerbation of COPD with left lower lobe pneumonia Acute on chronic hypoxic respiratory failure Abdominal pain probably secondary to enlarged spleen Myelofibrosis 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 Chronic kidney disease stage III Hypertension currently controlled Obstructive sleep apnea currently untreated patient does not tolerate CPAP Idiopathic pulmonary fibrosis Immunosuppression BPH Coronary artery disease with previous stent placement. No acute cardiac syndrome as per cardiology. Hyperlipidemia On obstructive nephrolithiasis Abdominal aortic aneurysm slight increase in size on CAT scan findings Grieving, recent of Hospital course:Acute exacerbation of chronic COPD, anemia secondary to myelofibrosis, acute kidney injury improved Sergey is an 81-year-old male well-known to my practice known history of COPD and myelofibrosis with other comorbidities, patient has O2 dependent nontender currently steroid dependent but has been on corticosteroids off and on over the last 5 years, does not tolerate CPAP, remote history of embolism on no anticoagulant therapy (did not tolerate). Patient also complains of abdominal pain which is chronic in nature has grossly enlarged spleen secondary to myelofibrosis currently on O2 3 L nasal cannula short of breath white cell count was 5.2 with a hemoglobin of 10.6 which is about his baseline. Suspicion for left lower lobe pneumonia current admission labs demonstrated creatinine of 2.3 sodium of 138 potassium of 3.9 troponin 0.9 10/20/2021 patient is status post EGD and colonoscopy discuss case with Dr. Reece he suggested the patient may have C. diff from the appearance of the colon Otherwise mild gastritis no active bleeding while signs are stable patient is afebrile we will start patient on Flagyl for C. diff protocol 10/21/2021 patient is awake alert oriented 3 but is unstable patient is afebrile C. diff C. diff toxin negative 10/22/2021 Patient is awake alert oriented 3 vital signs are stable patient is afebrile still complains of loose stool, otherwise improved BUN/creatinine creatinine back to baseline 30 creatinine 1.89 10/23/2021 Patient is awake alert oriented 3 vital signs are stable patient is afebrile, loose stool has improved, renal function back to baseline, Loose stool initially began as an outpatient when patient started taking Jakafi for the myelofibrosis. 10/24/2021 sitting up in chair, feels much better, good diet intake with no nausea or vomiting. States it is his first day without diarrhea, on scheduled Lomotil. Reports minimal ambulation previously secondary to his diarrhea. Hemoglobin currently 9.1, platelets 187. Pathology reporting acute colitis with mucosal erosion and pseudomembranous colitis. Stool for C. diff reported negative. Denies chest pain, palpitations or shortness of breath. Denies lightheadedness, dizziness or focal deficits. 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 Denies abdominal pain. Denies nausea or vomiting. Hemoglobin 9.2, platelets 179. Maintained on Flagyl, vancomycin. Afebrile, normal WBC. Creatinine stable. Questran initiated yesterday, continues on Flagyl and vancomycin, Diarrhea improved. Patient will be discharged home today in a stable condition with guarded prognosis pending final DC recommendations and clearance per GI/surgery and hematology. Specifically,Jakafi on hold, further rec. as per Hematology. The impression and plan of care has been dictated as directed. : I performed a history and examination of this patient, discussed the same with the dictator. I agree with the dictator's note ,documented as a scribe. Any additional findings or plans will be noted. Patient Condition at Discharge: Stable Plan - Discharge Summary Discharge Rx Participant: Yes New Discharge Prescriptions: New hydrALAZINE HCL [Apresoline] 50 mg PO TID-W/MEALS #180 tab Budesonide-Formot 160-4.5 Mcg [Symbicort 160-4.5 Mcg Inhaler] 2 puff INHALATION RT-BID #1 inh Cholestyramine (with Sugar) [Questran Packet] 4 gm PO TID BETWEEN MEALS #30 packet metroNIDAZOLE [Flagyl] 500 mg PO TID #21 tab Isosorbide Mononitrate ER [Imdur] 60 mg PO DAILY #30 tab guaiFENesin [Mucinex] 600 mg PO Q12HR PRN tab PRN Reason: Cough predniSONE 10 mg PO DIRECTED #30 tab Vancomycin 125 mg PO QID #28 cap Continue Pantoprazole Sodium [Protonix] 40 mg PO DAILY Vit C/E/Zn/Coppr/Lutein/Zeaxan [Preservision Areds 2 Softgel] 1 cap PO HS lidocaine HCL [lidocaine HCL Viscous] 5 ml MUCOUS MEM QID PRN PRN Reason: Pain Super B Complex 1 tab PO HS Ergocalciferol (Vitamin D2) [Drisdol (50,000 Iu)] 1,250 mcg PO FR LORazepam [Ativan] 0.5 mg PO TID amLODIPine [Norvasc] 5 mg PO DAILY Sucralfate [Carafate] 1 gm PO AC-TID carvediloL [Coreg*] 12.5 mg PO BID Cholecalciferol [Vitamin D3 (25 Mcg = 1000 Iu)] 25 mcg PO HS Acetaminophen Tab [Tylenol] 650 mg PO Q6HR PRN tab PRN Reason: Mild Pain Or Fever > 100.5 Changed Diphenoxylate HCl/Atropine [Lomotil 2.5-0.025 mg Tablet] 1 tab PO Q6H PRN #0 PRN Reason: Diarrhea Discontinued Isosorbide Mononitrate ER [Imdur] 30 mg PO DAILY #30 tablet hydrALAZINE HCL [Apresoline] 10 mg PO TID-W/MEALS Dicyclomine HCl 10 mg PO Q8H PRN PRN Reason: cramps Ruxolitinib Phosphate [Jakafi] 5 mg PO BID Lansoprazole [Prevacid 24Hr] 15 mg PO DAILY Discharge Medication List Pantoprazole Sodium [Protonix] 40 mg PO DAILY 03/08/16 [History] Vit C/E/Zn/Coppr/Lutein/Zeaxan [Preservision Areds 2 Softgel] 1 cap PO HS 12/12/18 [History] Sucralfate [Carafate] 1 gm PO AC-TID 07/16/21 [History] carvediloL [Coreg*] 12.5 mg PO BID 07/16/21 [History] lidocaine HCL [lidocaine HCL Viscous] 5 ml MUCOUS MEM QID PRN 07/16/21 [History] Cholecalciferol [Vitamin D3 (25 Mcg = 1000 Iu)] 25 mcg PO HS 08/18/21 [History] Ergocalciferol (Vitamin D2) [Drisdol (50,000 Iu)] 1,250 mcg PO FR 08/18/21 [History] Super B Complex 1 tab PO HS 08/18/21 [History] Acetaminophen Tab [Tylenol] 650 mg PO Q6HR PRN tab 08/19/21 [Rx] LORazepam [Ativan] 0.5 mg PO TID 10/16/21 [History] amLODIPine [Norvasc] 5 mg PO DAILY 10/16/21 [History] Budesonide-Formot 160-4.5 Mcg [Symbicort 160-4.5 Mcg Inhaler] 2 puff INHALATION RT-BID #1 inh 10/25/21 [Rx] Isosorbide Mononitrate ER [Imdur] 60 mg PO DAILY #30 tab 10/25/21 [Rx] guaiFENesin [Mucinex] 600 mg PO Q12HR PRN tab 10/25/21 [Rx] hydrALAZINE HCL [Apresoline] 50 mg PO TID-W/MEALS #180 tab 10/25/21 [Rx] predniSONE 10 mg PO DIRECTED #30 tab 10/25/21 [Rx] Cholestyramine (with Sugar) [Questran Packet] 4 gm PO TID BETWEEN MEALS #30 packet 10/26/21 [Rx] Diphenoxylate HCl/Atropine [Lomotil 2.5-0.025 mg Tablet] 1 tab PO Q6H PRN #0 10/26/21 [Rx] Vancomycin 125 mg PO QID #28 cap 10/26/21 [Rx] metroNIDAZOLE [Flagyl] 500 mg PO TID #21 tab 10/26/21 [Rx] Follow up Appointment(s)/Referral(s): Barrington Goyal Jr, DO [Primary Care Provider] - 10/31/21 10:00 am (Sunday) Brannon Dueñas [NON-STAFF] - Anselmo Conrad MD [STAFF PHYSICIAN] - 11/03/21 1:15 pm ( with Jennifer HAINES) Rodriguez Reece MD [STAFF PHYSICIAN] - 11/03/21 3:00 pm () Ambulatory/Diagnostic Orders: Complete Blood Count w/diff [LAB.AMB] Time Frame: 3 Days, Location: None Selected Activity/Diet/Wound Care/Special Instructions: [place] on hold, further rec. as per Hematology. Antibiotics/lomotil as per Surgery Discharge/Stand Alone Forms: Who Do I Call?, Outpatient Counseling, Personal Instructor Nurse Discharge Disposition: HOME SELF-CARE
== END 2021-10-26 19:56 | disposition home or self-care (01) | DRG 371 ==
LOC: EC 00:58 → 3SCARD 03:46 → OBSVTOIN 10-18 12:10 → 3SCARD 10-25 03:01
PROVIDERS: ADMIT Family Medicine; ATTEND Family Medicine
PROC: 0DB78ZX Excision of Stomach, Pylorus, Via Natural or Artificial Opening Endoscopic, Diagnostic (ICD-10-PCS; principal; 2021-10-20 11:05)
PROC: 0DBN8ZX Excision of Sigmoid Colon, Via Natural or Artificial Opening Endoscopic, Diagnostic (ICD-10-PCS; 2021-10-20 11:05)
DX: A04.72 Enterocolitis due to Clostridium difficile, not specified as recurrent (principal); J14 Pneumonia due to Hemophilus influenzae; J96.01 Acute respiratory failure with hypoxia; D47.1 Chronic myeloproliferative disease; E87.2 Acidosis; K63.3 Ulcer of intestine; N17.9 Acute kidney failure, unspecified; J44.0 Chronic obstructive pulmonary disease with (acute) lower respiratory infection; J44.1 Chronic obstructive pulmonary disease with (acute) exacerbation; D84.81 Immunodeficiency due to conditions classified elsewhere; C94.6 Myelodysplastic disease, not elsewhere classified; R77.8 Other specified abnormalities of plasma proteins; R00.0 Tachycardia, unspecified; K29.50 Unspecified chronic gastritis without bleeding; N20.0 Calculus of kidney; M19.90 Unspecified osteoarthritis, unspecified site; H91.90 Unspecified hearing loss, unspecified ear; N18.32 Chronic kidney disease, stage 3b; D63.1 Anemia in chronic kidney disease; I12.9 Hypertensive chronic kidney disease with stage 1 through stage 4 chronic kidney disease, or unspecified chronic kidney disease; D50.9 Iron deficiency anemia, unspecified; R53.83 Other fatigue; R16.1 Splenomegaly, not elsewhere classified; R76.8 Other specified abnormal immunological findings in serum; F32.A Depression, unspecified; F41.9 Anxiety disorder, unspecified; D47.2 Monoclonal gammopathy; E87.6 Hypokalemia; I25.10 Atherosclerotic heart disease of native coronary artery without angina pectoris; I34.0 Nonrheumatic mitral (valve) insufficiency; K21.9 Gastro-esophageal reflux disease without esophagitis; N40.0 Benign prostatic hyperplasia without lower urinary tract symptoms; G47.33 Obstructive sleep apnea (adult) (pediatric); J84.112 Idiopathic pulmonary fibrosis; G43.909 Migraine, unspecified, not intractable, without status migrainosus; I71.4 Abdominal aortic aneurysm, without rupture; E78.2 Mixed hyperlipidemia; E86.0 Dehydration; R15.2 Fecal urgency; R53.1 Weakness; D75.9 Disease of blood and blood-forming organs, unspecified; Z20.822 Contact with and (suspected) exposure to COVID-19; Z96.621 Presence of right artificial elbow joint; Z96.622 Presence of left artificial elbow joint; Z63.4 Disappearance and death of family member; Z87.891 Personal history of nicotine dependence; Z90.49 Acquired absence of other specified parts of digestive tract; Z79.899 Other long term (current) drug therapy; Z95.5 Presence of coronary angioplasty implant and graft; Z90.89 Acquired absence of other organs; Z85.828 Personal history of other malignant neoplasm of skin; Z98.41 Cataract extraction status, right eye; Z98.42 Cataract extraction status, left eye; Z98.890 Other specified postprocedural states; Z89.022 Acquired absence of left finger(s); Z86.711 Personal history of pulmonary embolism; I25.2 Old myocardial infarction; Z85.46 Personal history of malignant neoplasm of prostate; Z79.51 Long term (current) use of inhaled steroids; Z99.81 Dependence on supplemental oxygen; Z92.3 Personal history of irradiation; Z79.52 Long term (current) use of systemic steroids; Z87.11 Personal history of peptic ulcer disease; Z87.81 Personal history of (healed) traumatic fracture; Z87.442 Personal history of urinary calculi; Z88.8 Allergy status to other drugs, medicaments and biological substances; Z80.1 Family history of malignant neoplasm of trachea, bronchus and lung; Z80.8 Family history of malignant neoplasm of other organs or systems; Z82.49 Family history of ischemic heart disease and other diseases of the circulatory system
CPT/HCPCS: 36415; 43239; 45380; 71045; 71046; 80048; 80053; 80061; 81001; 82150; 82248; 82272; 82607; 82728; 82746; 82784; 83010; 83540; 83550; 83615; 83690; 83735; 84484; 85025; 85027; 85045; 85384; 85610; 85730; 86038; 86039; 86225; 87045; 87046; 87070; 87205; 87324; 87502; 87635; 88305; 93005; 93306; 94640; 94760; 96361; 96374; 96376; 99285

== ENCOUNTER 2021-10-31 10:28 | Inpatient (IN) | payer MEDICARE ==
[2021-10-31] MEDS ORDERED: ONDANSETRON 4 MG/2 ML VIAL IVP STA (11:59)
[2021-10-31] MEDS: SODIUM CHLORIDE 0.9% 1,000 ML IV SCH ×2 (12:12→20:14)
[2021-10-31 12:27] LABS: Anisocytosis Moderate; Basophils % (A) 1 %; Eosinophils # (A) 0.1 k/uL (0-0.7); Eosinophils % (A) 1 %; HCT 32.6 % (39.0-53.0); HGB 10.7 gm/dL (13.0-17.5); Hypochromasia Slight; Lymphocytes # (A) 0.9 k/uL (1.0-4.8); Lymphocytes % (A) 14 %; MCH 27.1 pg (25.0-35.0); MCHC 32.8 g/dL (31.0-37.0); MCV 82.6 fL (80.0-100.0); Mean Platelet Volume 10.3; Microcytosis Slight; Monocytes # (A) 0.4 k/uL (0-1.0); Monocytes % (A) 5 %; Neutrophils # (A) 5.1 k/uL (1.3-7.7); Neutrophils % (A) 77 %; Platelet Count 168 k/uL (150-450); Poikilocytosis Slight; RBC 3.94 m/uL (4.30-5.90); WBC 6.6 k/uL (3.8-10.6)
--- NOTE | 2021-10-31 12:30 | ED ---
Abdominal Pain HPI - General Chief Complaint: Abdominal Pain Stated Complaint: N/V/D Time Seen by Provider: 10/31/21 10:40 Source: patient Mode of arrival: EMS Limitations: no limitations - History of Present Illness Initial Comments: 81-year-old male with past medical history of anemia, COPD, myelofibrosis, splenomegaly, chronic kidney disease, hypertension presents to the emergency department with diarrhea, abdominal pain and fatigue. Patient was hospitalized from the through the . He was placed on ankle mycin and Flagyl for pseudomembranous colitis which was C. diff negative. He was also diagnosed with pneumonia and had an elevated troponin. Throughout his hospitalization he had been EGD and colonoscopy performed. He had improvement in his diarrhea and was sent home. Patient felt well up until today. States that today he began having extreme fatigue, nausea, dizziness. He did have 2 episodes of his diarrhea this morning. No fevers denies chest pain or shortness of breath. Has not been able to take his medications as directed, especially this morning because he states he was discharged home on Sunday to "too many new medications." No other alleviating, precipitating modifying factors - Related Data Home Medications Medication Instructions Recorded Confirmed Pantoprazole Sodium [Protonix] 40 mg PO DAILY 03/08/16 10/31/21 Vit C/E/Zn/Coppr/Lutein/Zeaxan 1 cap PO HS 12/12/18 10/31/21 [Preservision Areds 2 Softgel] Sucralfate [Carafate] 1 gm PO AC-TID 07/16/21 10/31/21 carvediloL [Coreg*] 12.5 mg PO BID 07/16/21 10/31/21 Cholecalciferol [Vitamin D3 (25 25 mcg PO HS 08/18/21 10/31/21 Mcg = 1000 Iu)] Ergocalciferol (Vitamin D2) 1,250 mcg PO FR 08/18/21 10/31/21 [Drisdol (50,000 Iu)] Super B Complex 1 tab PO HS 08/18/21 10/31/21 amLODIPine [Norvasc] 5 mg PO DAILY 10/16/21 10/31/21 Fluticasone Propion/Salmeterol 2 puff INHALATION RT-BID 10/31/21 10/31/21 [Advair Hfa 115-21 Mcg Inhaler] Previous Rx's Medication Instructions Recorded Acetaminophen Tab [Tylenol] 650 mg PO Q6HR PRN tab 08/19/21 Isosorbide Mononitrate ER [Imdur] 60 mg PO DAILY #30 tab 10/25/21 guaiFENesin [Mucinex] 600 mg PO Q12HR PRN tab 10/25/21 hydrALAZINE HCL [Apresoline] 50 mg PO TID-W/MEALS #180 tab 10/25/21 Cholestyramine (with Sugar) 4 gm PO TID BETWEEN MEALS #30 10/26/21 [Questran Packet] packet Diphenoxylate HCl/Atropine 1 tab PO Q6H PRN #0 10/26/21 [Lomotil 2.5-0.025 mg Tablet] Darbepoetin Dennis [Aranesp] 40 mcg SQ Q7D #2 each 11/03/21 Diclofenac Sodium Gel [Voltaren 4 gm TOPICAL QID PRN gm 11/03/21 Gel] Allergies Allergy/AdvReac Type Severity Reaction Status Date / Time alprazolam [From Xanax] AdvReac Confusion Verified 10/31/21 13:29 Review of Systems ROS Statement: Those systems with pertinent positive or pertinent negative responses have been documented in the HPI. ROS Other: All systems not noted in ROS Statement are negative. Past Medical History Past Medical History: Cancer, Chest Pain / Angina, COPD, GERD/Reflux, Hearing Disorder / Deafness, Hyperlipidemia, Hypertension, Myocardial Infarction ([place]), Osteoarthritis (OA), Prostate Disorder, Pulmonary Embolus (PE) Additional Past Medical History / Comment(s): Interstitial lung disease, pulmonary fibrosis, PE in 2011-pt cannot recall laterality, past home O2 use but none now, RIANA-cannot tolerate Cpap, prostate cancer with radiation treatment, skin cancer with removals, nephrolithiasis, migraines, compression fracture low back, bilateral elbow fractures with surgery, PUD, jaundiced as a child, [place] bilaterally. "mild" [place] in january 2020.Myelofibrosis Last Myocardial Infarction Date:: January 2020 History of Any Multi-Drug Resistant Organisms: C-DIFF Date of last positivie culture/infection: October 26 2021 Past Surgical History: Appendectomy, Cholecystectomy, Heart Catheterization, Heart Catheterization With Stent, Hernia Repair, Joint Replacement, Orthopedic Surgery Additional Past Surgical History / Comment(s): Prostate biopsy, L hand partial amp of 2 fingers, L knee ACL repair, R knee arthroscopy, bilateral total elbow r eplacements per pt, bilateral cataract removals, L inguinal hernia repair, cardiac caths x 2, EGD, colonoscopy, skin cancer removals. Past Anesthesia/Blood Transfusion Reactions: No Reported Reaction Date of Last Stent Placement:: January 2020. Past Psychological History: Anxiety, Depression Smoking Status: Former smoker Past Alcohol Use History: None Reported Past Drug Use History: None Reported - Past Family History Brother(s) Family Medical History: Cancer Additional Family Medical History / Comment(s): ONE BROTHER HAD LUNG CA & ANOTHER HAD MELANOMA. Brother just recently last week. Mother Family Medical History: AICD/Pacemaker Father Family Medical History: No Reported History Sister(s) Family Medical History: No Reported History General Exam Limitations: no limitations General appearance: alert, in no apparent distress Head exam: Present: atraumatic, normocephalic, normal inspection Eye exam: Present: normal appearance, PERRL, EOMI. Absent: scleral icterus, conjunctival injection, periorbital swelling ENT exam: Present: normal exam, mucous membranes moist Neck exam: Present: normal inspection. Absent: tenderness, meningismus, lymphadenopathy Respiratory exam: Present: normal lung sounds bilaterally. Absent: respiratory distress, wheezes, rales, rhonchi, stridor Cardiovascular Exam: Present: regular rate, normal rhythm, normal heart sounds. Absent: systolic murmur, diastolic murmur, rubs, gallop, clicks GI/Abdominal exam: Present: soft, normal bowel sounds. Absent: distended, tenderness, guarding, rebound, rigid Extremities exam: Present: normal inspection, full ROM, normal capillary refill. Absent: tenderness, pedal edema, joint swelling, calf tenderness Back exam: Present: normal inspection Neurological exam: Present: alert, oriented X3, CN II-XII intact Psychiatric exam: Present: normal affect, normal mood Skin exam: Present: warm, dry, intact, normal color. Absent: rash Course Vital Signs 10/31/21 10/31/21 10/31/21 10:40 12:45 14:45 Temperature 97.5 F L Pulse Rate 86 85 82 Respiratory 16 15 16 Rate Blood Pressure 188/89 175/76 187/89 O2 Sat by Pulse 96 94 L 93 L Oximetry 10/31/21 17:23 Temperature Pulse Rate 85 Respiratory 14 Rate Blood Pressure 186/91 O2 Sat by Pulse 94 L Oximetry Medical Decision Making - Medical Decision Making Upon arrival patient was placed into room 3. There are history and physical exam was performed. Patient placed on continuous pulse ox and cardiac monitoring. Laboratory studies are obtained and reviewed. KUB is performed which demonstrates intact osseous structures. Normal gas pattern. I did discuss these results with Dr. Goyal who will admit the patient for hydration and psych consult as he is concerned that the patient's symptoms are sparked from his depression due to the loss of his . Patient agreed to admission - Lab Data Result diagrams: 11/03/21 04:56 11/03/21 04:56 Lab Results 10/31/21 10/31/21 10/31/21 Range/Units 12:05 12:05 12:05 WBC 6.6 (3.8-10.6) k/uL RBC 3.94 L (4.30-5.90) m/uL Hgb 10.7 L (13.0-17.5) gm/dL Hct 32.6 L (39.0-53.0) % MCV 82.6 (80.0-100.0) fL MCH 27.1 (25.0-35.0) pg MCHC 32.8 (31.0-37.0) g/dL RDW 21.0 H (11.5-15.5) % Plt Count 168 (150-450) k/uL Plt Count Comment MPV 10.3 Absolute Nucleated RBC (0.00-0.00) X 10*3/uL Neutrophils % 77 % Neutrophils % (Manual) % Lymphocytes % 14 % Lymphocytes % (Manual) % Monocytes % 5 % Monocytes % (Manual) % Eosinophils % 1 % Basophils % 1 % Basophils % (Manual) % Neutrophils # 5.1 (1.3-7.7) k/uL Neutrophils # (Manual) (2.00-8.90) X 10*3/uL Lymphocytes # 0.9 L (1.0-4.8) k/uL Lymphocytes # (Manual) (0.90-5.00) X 10*3/uL Monocytes # 0.4 (0-1.0) k/uL Monocytes # (Manual) (0.20-1.00) X 10*3/uL Eosinophils # 0.1 (0-0.7) k/uL Eosinophils # (Manual) (0.04-0.35) X 10*3/uL Basophils # 0.0 (0-0.2) k/uL Basophils # (Manual) (0.00-0.10) X 10*3/uL NRBC/100 WBC Diff (0.0-0.0) /100 WBCS Hypochromasia Slight Poikilocytosis Slight Anisocytosis Moderate Microcytosis Slight Elliptocytes Sodium 137 (137-145) mmol/L Potassium 3.7 (3.5-5.1) mmol/L Chloride 105 (98-107) mmol/L Carbon Dioxide 28 (22-30) mmol/L Anion Gap 4 mmol/L BUN 30 H (9-20) mg/dL Creatinine 1.60 H (0.66-1.25) mg/dL Est GFR (CKD-EPI)AfAm 47 (>60 ml/min/1.73 sqM) Est GFR (CKD-EPI)NonAf 40 (>60 ml/min/1.73 sqM) BUN/Creatinine Ratio (12.00-20.00) Ratio Glucose 85 (74-99) mg/dL POC Glucose (mg/dL) (70-110) mg/dL POC Glu System Dispatcher ID Plasma Lactic Acid Mateo (0.7-2.0) mmol/L Calcium 8.3 L (8.4-10.2) mg/dL Total Bilirubin 1.3 (0.2-1.3) mg/dL AST 25 (17-59) U/L ALT 22 (4-49) U/L Alkaline Phosphatase 114 (38-126) U/L Troponin I (0.000-0.034) ng/mL Total Protein 5.8 L (6.3-8.2) g/dL Albumin 3.4 L (3.5-5.0) g/dL Amylase 113 H (30-110) U/L Lipase 117 (23-300) U/L Urine Color Light Yellow Urine Appearance Clear (Clear) Urine pH 7.0 (5.0-8.0) Ur Specific [place] 1.007 (1.001-1.035) Urine Protein Trace H (Negative) Urine Glucose (UA) Negative (Negative) Urine Ketones Negative (Negative) Urine Blood Negative (Negative) Urine Nitrite Negative (Negative) Urine Bilirubin Negative (Negative) Urine Urobilinogen <2.0 (<2.0) mg/dL Ur Leukocyte Esterase Negative (Negative) Coronavirus (PCR) (Not Detectd) Influenza Type A RNA (Not Detectd) Influenza Type B (PCR) (Not Detectd) 10/31/21 10/31/21 10/31/21 Range/Units 12:05 12:05 12:05 WBC (3.8-10.6) k/uL RBC (4.30-5.90) m/uL Hgb (13.0-17.5) gm/dL Hct (39.0-53.0) % MCV (80.0-100.0) fL MCH (25.0-35.0) pg MCHC (31.0-37.0) g/dL RDW (11.5-15.5) % Plt Count (150-450) k/uL Plt Count Comment MPV Absolute Nucleated RBC (0.00-0.00) X 10*3/uL Neutrophils % % Neutrophils % (Manual) % Lymphocytes % % Lymphocytes % (Manual) % Monocytes % % Monocytes % (Manual) % Eosinophils % % Basophils % % Basophils % (Manual) % Neutrophils # (1.3-7.7) k/uL Neutrophils # (Manual) (2.00-8.90) X 10*3/uL Lymphocytes # (1.0-4.8) k/uL Lymphocytes # (Manual) (0.90-5.00) X 10*3/uL Monocytes # (0-1.0) k/uL Monocytes # (Manual) (0.20-1.00) X 10*3/uL Eosinophils # (0-0.7) k/uL Eosinophils # (Manual) (0.04-0.35) X 10*3/uL Basophils # (0-0.2) k/uL Basophils # (Manual) (0.00-0.10) X 10*3/uL NRBC/100 WBC Diff (0.0-0.0) /100 WBCS Hypochromasia Poikilocytosis Anisocytosis Microcytosis Elliptocytes Sodium (137-145) mmol/L Potassium (3.5-5.1) mmol/L Chloride (98-107) mmol/L Carbon Dioxide (22-30) mmol/L Anion Gap mmol/L BUN (9-20) mg/dL Creatinine (0.66-1.25) mg/dL Est GFR (CKD-EPI)AfAm (>60 ml/min/1.73 sqM) Est GFR (CKD-EPI)NonAf (>60 ml/min/1.73 sqM) BUN/Creatinine Ratio (12.00-20.00) Ratio Glucose (74-99) mg/dL POC Glucose (mg/dL) (70-110) mg/dL POC Glu System Dispatcher ID Plasma Lactic Acid Mateo 1.4 (0.7-2.0) mmol/L Calcium (8.4-10.2) mg/dL Total Bilirubin (0.2-1.3) mg/dL AST (17-59) U/L ALT (4-49) U/L Alkaline Phosphatase (38-126) U/L Troponin I 0.028 (0.000-0.034) ng/mL Total Protein (6.3-8.2) g/dL Albumin (3.5-5.0) g/dL Amylase (30-110) U/L Lipase (23-300) U/L Urine Color Urine Appearance (Clear) Urine pH (5.0-8.0) Ur Specific [place] (1.001-1.035) Urine Protein (Negative) Urine Glucose (UA) (Negative) Urine Ketones (Negative) Urine Blood (Negative) Urine Nitrite (Negative) Urine Bilirubin (Negative) Urine Urobilinogen (<2.0) mg/dL Ur Leukocyte Esterase (Negative) Coronavirus (PCR) Not Detected (Not Detectd) Influenza Type A RNA (Not Detectd) Influenza Type B (PCR) (Not Detectd) 10/31/21 11/01/21 11/01/21 Range/Units 12:05 04:33 04:33 WBC 6.09 (3.8-10.6) k/uL RBC 3.32 L (4.30-5.90) m/uL Hgb 8.5 L (13.0-17.5) gm/dL Hct 28.4 L (39.0-53.0) % MCV 85.5 (80.0-100.0) fL MCH 25.6 L (25.0-35.0) pg MCHC 29.9 L (31.0-37.0) g/dL RDW 22.4 H (11.5-15.5) % Plt Count 161 (150-450) k/uL Plt Count Comment Adequate MPV Absolute Nucleated RBC 0.12 H (0.00-0.00) X 10*3/uL Neutrophils % Not Reportable % Neutrophils % (Manual) 94 % Lymphocytes % % Lymphocytes % (Manual) 3 % Monocytes % % Monocytes % (Manual) 1 % Eosinophils % % Basophils % % Basophils % (Manual) 2 % Neutrophils # (1.3-7.7) k/uL Neutrophils # (Manual) 5.72 (2.00-8.90) X 10*3/uL Lymphocytes # (1.0-4.8) k/uL Lymphocytes # (Manual) 0.18 L (0.90-5.00) X 10*3/uL Monocytes # (0-1.0) k/uL Monocytes # (Manual) 0.06 L (0.20-1.00) X 10*3/uL Eosinophils # (0-0.7) k/uL Eosinophils # (Manual) 0 L (0.04-0.35) X 10*3/uL Basophils # (0-0.2) k/uL Basophils # (Manual) 0.12 H (0.00-0.10) X 10*3/uL NRBC/100 WBC Diff 2.0 H (0.0-0.0) /100 WBCS Hypochromasia Poikilocytosis Anisocytosis Microcytosis Elliptocytes 2+ Sodium 142 (137-145) mmol/L Potassium 3.8 (3.5-5.1) mmol/L Chloride 107 (98-107) mmol/L Carbon Dioxide 22.6 (22-30) mmol/L Anion Gap 12.40 mmol/L BUN 25.4 (9-20) mg/dL Creatinine 1.7 H (0.66-1.25) mg/dL Est GFR (CKD-EPI)AfAm 43.2 L (>60 ml/min/1.73 sqM) Est GFR (CKD-EPI)NonAf 37.3 L (>60 ml/min/1.73 sqM) BUN/Creatinine Ratio 14.94 (12.00-20.00) Ratio Glucose 66 L (74-99) mg/dL POC Glucose (mg/dL) (70-110) mg/dL POC Glu System Dispatcher ID Plasma Lactic Acid Mateo (0.7-2.0) mmol/L Calcium 7.5 L (8.4-10.2) mg/dL Total Bilirubin (0.2-1.3) mg/dL AST (17-59) U/L ALT (4-49) U/L Alkaline Phosphatase (38-126) U/L Troponin I (0.000-0.034) ng/mL Total Protein (6.3-8.2) g/dL Albumin (3.5-5.0) g/dL Amylase (30-110) U/L Lipase (23-300) U/L Urine Color Urine Appearance (Clear) Urine pH (5.0-8.0) Ur Specific [place] (1.001-1.035) Urine Protein (Negative) Urine Glucose (UA) (Negative) Urine Ketones (Negative) Urine Blood (Negative) Urine Nitrite (Negative) Urine Bilirubin (Negative) Urine Urobilinogen (<2.0) mg/dL Ur Leukocyte Esterase (Negative) Coronavirus (PCR) (Not Detectd) Influenza Type A RNA Not Detected (Not Detectd) Influenza Type B (PCR) Not Detected (Not Detectd) 11/01/21 Range/Units 09:42 WBC (3.8-10.6) k/uL RBC (4.30-5.90) m/uL Hgb (13.0-17.5) gm/dL Hct (39.0-53.0) % MCV (80.0-100.0) fL MCH (25.0-35.0) pg MCHC (31.0-37.0) g/dL RDW (11.5-15.5) % Plt Count (150-450) k/uL Plt Count Comment MPV Absolute Nucleated RBC (0.00-0.00) X 10*3/uL Neutrophils % % Neutrophils % (Manual) % Lymphocytes % % Lymphocytes % (Manual) % Monocytes % % Monocytes % (Manual) % Eosinophils % % Basophils % % Basophils % (Manual) % Neutrophils # (1.3-7.7) k/uL Neutrophils # (Manual) (2.00-8.90) X 10*3/uL Lymphocytes # (1.0-4.8) k/uL Lymphocytes # (Manual) (0.90-5.00) X 10*3/uL Monocytes # (0-1.0) k/uL Monocytes # (Manual) (0.20-1.00) X 10*3/uL Eosinophils # (0-0.7) k/uL Eosinophils # (Manual) (0.04-0.35) X 10*3/uL Basophils # (0-0.2) k/uL Basophils # (Manual) (0.00-0.10) X 10*3/uL NRBC/100 WBC Diff (0.0-0.0) /100 WBCS Hypochromasia Poikilocytosis Anisocytosis Microcytosis Elliptocytes Sodium (137-145) mmol/L Potassium (3.5-5.1) mmol/L Chloride (98-107) mmol/L Carbon Dioxide (22-30) mmol/L Anion Gap mmol/L BUN (9-20) mg/dL Creatinine (0.66-1.25) mg/dL Est GFR (CKD-EPI)AfAm (>60 ml/min/1.73 sqM) Est GFR (CKD-EPI)NonAf (>60 ml/min/1.73 sqM) BUN/Creatinine Ratio (12.00-20.00) Ratio Glucose (74-99) mg/dL POC Glucose (mg/dL) 107 (70-110) mg/dL POC Glu System Dispatcher ID Karis Butler Plasma Lactic Acid Mate[place] (0.7-2.0) mmol/L Calcium (8.4-10.2) mg/dL Total Bilirubin (0.2-1.3) mg/dL AST (17-59) U/L ALT (4-49) U/L Alkaline Phosphatase (38-126) U/L Troponin I (0.000-0.034) ng/mL Total Protein (6.3-8.2) g/dL Albumin (3.5-5.0) g/dL Amylase (30-110) U/L Lipase (23-300) U/L Urine Color Urine Appearance (Clear) Urine pH (5.0-8.0) Ur Specific [place] (1.001-1.035) Urine Protein (Negative) Urine Glucose (UA) (Negative) Urine Ketones (Negative) Urine Blood (Negative) Urine Nitrite (Negative) Urine Bilirubin (Negative) Urine Urobilinogen (<2.0) mg/dL Ur Leukocyte Esterase (Negative) Coronavirus (PCR) (Not Detectd) Influenza Type A RNA (Not Detectd) Influenza Type B (PCR) (Not Detectd) - EKG Data EKG Comments: EKG demonstrates sinus rhythm with a rate of 82. [place] interval 139. QRS 94. QTC 391. No acute ST segment elevations or depressions Disposition Clinical Impression: Myelofibrosis, CKD (chronic kidney disease), stage III, Nausea & vomiting, D iarrhea Disposition: ADMITTED IP TO THIS HOSP Condition: Stable Is patient prescribed a controlled substance at d/c from ED?: No Time of Disposition: 13:36 Decision to Admit Reason: Admit from EC Decision Date: 10/31/21 Decision Time: 13:36
[2021-10-31 12:41] LABS: Albumin 3.4 g/dL (3.5-5.0); Calcium 8.3 mg/dL (8.4-10.2); Potassium 3.7 mmol/L (3.5-5.1); Total Bilirubin 1.3 mg/dL (0.2-1.3); Total Protein 5.8 g/dL (6.3-8.2)
--- NOTE | 2021-10-31 12:41 | XR ---
EXAMINATION TYPE: XR KUB DATE OF EXAM: 10/31/2021 COMPARISON: NONE HISTORY: Pain TECHNIQUE: One view abdominal series FINDINGS: The osseous structures are intact. The bowel gas pattern is nonspecific. Postsurgical change right h ip. Surgical clips in the pelvis and right upper quadrant. Scoliosis with degenerative change of the spine. Spina bifida occulta of the sacrococcygeal region.
[2021-10-31 13:12] LABS: Appearance,Urine Clear (Clear); Bilirubin,Urine Negative (Negative); Blood,Urine Negative (Negative); Color,Urine Light Yellow; Glucose,Urine (UA) Negative (Negative); Ketones,Urine Negative (Negative); Leukocyte Esterase,Urine Negative (Negative); Nitrite,Urine Negative (Negative); Protein,Urine Trace (Negative); Specific Gravity,Urine 1.007 (1.001-1.035); Urobilinogen,Urine <2.0 mg/dL (<2.0)
[2021-10-31] MEDS ORDERED: ONDANSETRON 4 MG/2 ML VIAL IVP PRN (13:36)
[2021-10-31] MEDS ORDERED: NALOXONE 0.4 MG/ML 1 ML VIAL IV PRN (13:36)
[2021-10-31] MEDS ORDERED: LIDOCAINE VISCOUS 2% 15 ML CUP MUCOUS MEM ONE (15:00)
[2021-10-31] MEDS ORDERED: LIDOCAINE VISCOUS 2% 15 ML CUP MUCOUS MEM PRN (15:49)
[2021-10-31] MEDS ORDERED: guaiFENesin 600 MG TABLET.ER PO PRN (15:49)
[2021-10-31] MEDS ORDERED: DIPHENOX-ATROP 2.5-0.025 MG 1 EACH TAB PO PRN (15:49)
[2021-10-31] MEDS: SUCRALFATE 1 GM TAB PO SCH (17:25)
[2021-10-31] MEDS: LORazepam 0.5 MG TAB PO SCH ×2 (17:25→20:13)
[2021-10-31] MEDS: hydrALAZINE HCL 50 MG TAB PO SCH (17:25)
[2021-10-31] MEDS: CHOLESTYRAMINE (WITH SUGAR) 4 GM PACKET PO SCH (17:25)
[2021-10-31] MEDS: carvediloL 12.5 MG TAB PO SCH (17:25)
[2021-10-31] MEDS: VANCOMYCIN 125 MG CAPSULE PO SCH ×2 (17:26→20:13)
[2021-10-31] MEDS: SYMBICORT 160-4.5 MCG INHALER INHALATION SCH (19:42)
[2021-10-31] MEDS: CHOLECALCIFEROL 25 MCG (1000 IU) TABLET PO SCH (20:13)
[2021-11-01] MEDS: SODIUM CHLORIDE 0.9% 1,000 ML IV SCH ×3 (04:10→20:04)
[2021-11-01] MEDS: SYMBICORT 160-4.5 MCG INHALER INHALATION SCH ×2 (07:47→20:56)
[2021-11-01] MEDS: amLODIPine 5 MG TAB PO SCH (09:15)
[2021-11-01] MEDS: LORazepam 0.5 MG TAB PO SCH ×3 (09:15→22:28)
[2021-11-01] MEDS: carvediloL 12.5 MG TAB PO SCH ×2 (09:15→16:44)
[2021-11-01] MEDS: hydrALAZINE HCL 50 MG TAB PO SCH ×3 (09:15→17:59)
[2021-11-01] MEDS: SUCRALFATE 1 GM TAB PO SCH ×3 (09:15→16:44)
[2021-11-01] MEDS: VANCOMYCIN 125 MG CAPSULE PO SCH (09:15)
[2021-11-01] MEDS: PANTOPRAZOLE 40 MG TABLET PO SCH (09:15)
[2021-11-01] MEDS: ISOSORBIDE MONONITRATE ER 60 MG TAB.ER.24H PO SCH (09:15)
[2021-11-01 09:26] LABS: African American GFR (CKD) 43.2 (60.0-200.0); Anion Gap 12.4 mmol/L (10.00-18.00); BUN/Creat Ratio 14.94 Ratio (12.00-20.00); Blood Urea Nitrogen 25.4 mg/dL (9.0-27.0); Calcium 7.5 mg/dL (8.7-10.3); Carbon Dioxide 22.6 mmol/L (20.0-27.5); Non-African American GFR(CKD) 37.3 (60.0-200.0); Potassium 3.8 mmol/L (3.5-5.5)
[2021-11-01 09:43] LABS: Glucose,Whole Blood 107 mg/dL (70-110)
[2021-11-01 09:56] LABS: HCT 28.4 % (39.6-50.0); HGB 8.5 g/dL (13.0-17.0); MCH 25.6 pg (27.0-32.0); MCHC 29.9 g/dL (32.0-37.0); MCV 85.5 fL (80.0-97.0); Platelet Count 161 X 10*3/uL (140-440); RBC 3.32 X 10*6/uL (4.40-5.60); RDW 22.4 % (11.5-14.5); WBC 6.09 X 10*3/uL (4.50-10.00)
[2021-11-01 09:57] LABS: Basophils # (M) 0.12 X 10*3/uL (0.00-0.10); Elliptocytes 2+; Eosinophils # (M) 0 X 10*3/uL (0.04-0.35); Lymphocytes # (M) 0.18 X 10*3/uL (0.90-5.00); Monocytes # (M) 0.06 X 10*3/uL (0.20-1.00); Neutrophils # (M) 5.72 X 10*3/uL (2.00-8.90); Neutrophils % (M) 94 %
--- NOTE | 2021-11-01 11:15 | P.CN ---
Psychiatric Consult - . Consult date: 11/01/21 Consult:: 11/01/21 10:16 IDENTIFYING DATA: This patient is a 81-year-old male, , lives alone in a house, no kids. REASON FOR REFERRAL: Psychiatry was consulted for depression HISTORY OF PRESENT ILLNESS: The patient presented to the hospital after a recent hospitalization. Patient was treated with antibiotics previously and this is for his pneumonia. Patient came back to the hospital expressing nausea and some fatigue. Patient apparently has no psychiatric history. Patient was seen today at the bedside and agreeable screenplay writer. He claims that he has been having stressors including his passing away in June 2021. He states that mainly he has been overwhelmed with being on a lot of different medications and his medical issues. He states that his mood is "scared" and is admitting to mild depression at this time. He was fairly concrete and somewhat vague about his symptoms. He claims that he is not having any anxiety denies any paranoia at this time. He claims that he has "a lot to live for" and spoke about his grandchildren. He claims that he does have guns in his house however some prompting and has been locked. He was future oriented and did not endorse any suicidal thoughts or history of suicide attempts. States his appetite has been somewhat poor and also his sleep has been on and off. He claims that he is previously on Lexapro several months ago however states that it is not working for him claims that he does not want to take medications at this time. At this time patient denies any suicidal or homical ideations, intent or plan. Patient denies any auditory, visual hallucinations and denies any paranoia or delusions. Patients admits to using no recreational drugs or cigarettes. PAST PSYCHIATRIC HISTORY: Patient has a a history of depression and anxiety. He claims that he used to be on Lexapro for depression and anxiety and is currently taking Ativan 3 times a day. Patient denies any previous psychiatric hospitalizations. Patient denies any psychiatric outpatient follow-up. Patient denies any history of suicide attempts in the past. Past Medical History: Cancer, Chest Pain / Angina, COPD, GERD/Reflux, Hearing Disorder / Deafness, Hyperlipidemia, Hypertension, Myocardial Infarction ([place]), Osteoarthritis (OA), Prostate Disorder, Pulmonary Embolus (PE) Additional Past Medical History / Comment(s): Interstitial lung disease, pulmonary fibrosis, PE in 2012-pt cannot recall laterality, past home O2 use but none now, RIANA-cannot tolerate Cpap, prostate cancer with radiation treatment, skin cancer with removals, nephrolithiasis, migraines, compression fracture low back, bilateral elbow fractures with surgery, PUD, jaundiced as a child, [place] bilaterally. "mild" [place] in january 2020.Myelofibrosis ALLERGIES: as per EMR. CHEMICAL DEPENDENCY HISTORY: as per HPI. FAMILY PSYCHIATRIC/SUBSTANCE USE HISTORY: denies SOCIAL HISTORY: Patient was born and raised in [place]. 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 He did not if indicated. He is . He lives alone in the house. Denying any legal history. MENTAL STATUS EXAM: General Appearance: Patient appears to be elderly, stated age is alert, concrete and constricted however is attempting to cooperate. Patient appears to have fair hygiene and grooming wearing hospital gown with fair eye contact. Behavior: Patient is calmly lying in bed without any agitated behavior. Attempting to cooperate. The vague at times. Speech: Patient's speech is fluent and nonpressured. Monotone. Mood/Affect: Patient reports their mood is "scared", affect is congruent and constricted Suicidality/Homicidality: Patient denies having any suicidal or homicidal ideation intent or plan. Perceptions: Patient denies any visual hallucinations and denies any auditory hallucinations Though content/process: There is no evidence of any delusional thought content and thought process is linear and goal-directed. Future oriented. [place]. Memory and concentration: AOX3, grossly intact for the purposes of this session. Can spell "WORLD" backwards Judgment and insight: fair IMPRESSIONS: Major depressive disorder PLAN: -At this time patient DOES NOT meet criteria for inpatient psychiatric admission. -Would recommend the following medication changes/additions: Assistant Refinery Operator spoke with patient about different medication options for treatment of depression however p atient at this time is not interested. In the future if patient does change his mind would consider starting either Cymbalta 20 mg daily versus Zoloft 25 mg daily and gradually titrating up as needed. This can be done as an outpatient. Spoke with patient about if he was interested in doing outpatient individual therapy which she was indifferent about however this might be a good option for him as he is not wanting to take medications. -Patient does have polypharmacy at this time and consider simplifying medication management regimen. -bank worker to provide patient with outpatient mental health/psychiatry resources for appropriate follow up upon discharge -Communicated plan to patient's nurse -Psychiatry will sign off at this time -Please contact with any questions. 11/01/21 11:09
[2021-11-01] MEDS: CHOLESTYRAMINE (WITH SUGAR) 4 GM PACKET PO SCH ×3 (11:49→20:14)
[2021-11-01 13:42] VITALS: BMI 22.4
[2021-11-01] MEDS: ACETAMINOPHEN TAB 325 MG TAB PO PRN (17:17)
--- NOTE | 2021-11-01 19:54 | P.CONS ---
History of Present Illness - Reason for Consult Consult date: 11/01/21 MDS Requesting physician: Barrington Goyal Jr - Chief Complaint abd pain, N,V,D - History of Present Illness Mr Ward is a pleasant white male with multiple medical problems. These include a history of hypertension, coronary artery disease, and hypercholesterolemia. The patient was admitted to the hospital in 02/02 for [place], requiring stenting. Labs revealed that admission showed creatinine of 1.95, with hemoglobin of 11.5, WBC 8.9 and platelets 209. The patient was subsequently found to have BENIGNO positivity. He was referred to Rheumatology, labs 02/24/20 showed elevated kappa light chain at 77.7 mg/L as well as elevated lambda light chain at to 3.4 mg/L with a ratio 2.33, upper limit of normal being 1.65. The patient also had a 15% monoclonal spike on immunofixation, referred to Hem/Onc. Hx prostate cancer, treated with radiation in 2018 currently in co mplete remission according to him. Hemoglobin on 02/24/20 was 11.5, with other indices essentially normal. Iron studies were also normal. In 01/03, ultrasound of the KUB had revealed enlarged spleen at 18.[address] brain without contrast in 02/02 had shown age-related changes. Ultrasound KUB in 02/02 had shown splenomegaly again, as well as nonobstructing right renal calculi. Additional work up indicated a MGUS. Both light chains were again elevated in the serum, with ratio 2.11. Light chains were also elevated in the urine with ratio normal. No measurable M protein was noted in the urine or serum. He was placed on observation. Admitted to the hospital in early 05/06 with accidental fall and right hip fracture. He underwent right hemiarthroplasty. Hemoglobin had dropped during his hospitalization to 8.7. He was discharged on oral iron. Admitted 10/04 because of shortness of breath, after starting Brillinta. During that admission, splenomegaly was noted to be more prominent on physical exam. CBC also showed a mild left shift with small number of myelocytes and metamy elocytes. Protein electrophoresis studies and CBC however showed no change compared to before. Post discharge, the patient had a directed ultrasound of the spleen which showed size of 16.9 cm, versus 20.8 cm noted on prior KUB ultrasound in 02/02. Protein electrophoresis studies showed no progression. WBC differential and peripheral smear review showed a fairly mild left shift. Ultrasound also consistently showed heterogenous appearing liver, therefore it was felt that the patient had splenomegaly due to chronic liver disease. However on further follow-up he continued to have progressive enlargement of the spleen, as well as intermittent WBC elevations with intermittent left shift. Therefore at his visit on 01/11/21, he had MPD related mutations tested. 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 Bone marrow aspiration biopsy 02/26/21, confirmed primary myelofibrosis. He also had MDS FISH performed that was negative. Was recom mended Jakafi. He left for [place] in the winter in early 04/05 and started the medication there. He also established with an Oncologist there. He tolerated Jakafi well, no subjective side effects. However, he did experience a drop in hemoglobin and states that he was started on some "shots" by his Oncologist in [place]. Records were subsequently obtained showing that the patient had actually been started on Inrebec. He had also been receiving aranesp 20,000 units subcutaneous every week. Inrebec stopped 07/05 for inability to swallow. Resumed, had abd pain, stopped 08/05. He has been in the ofc about every 2 weeks with multiple subjective physical c/o. CT showed increase in splenomegaly so, Jakafi was ordered, 5 mg PO BID started on 09/01/21. Cont to have abd c/o, started in PPI and carafate, didn't really help symptoms. Pt having diarrhea that keeps him from leaving the house. He was told to take 1-2 times a day as it was recommended that he manage SE as the treatment options for MPD are very limited. Last seen in ofc 09/27, last retacrit was 10/12. Hgb in 10 range when he stays on top of it. He is readmitted after being discharged last week. He has been admitted 3 times since beginning of October. Pneumonia, Diarrhea, said he had an infection in his GI tract. He states he has been off Jakafi since 10/15, states he had diarrhea up until today-1st formed BM. When he was discharged last week he was pretty weak and coulnd't manage at home alone. Review of Systems 10 point ROS is neg except as stated in HPI Past Medical History Past Medical History: Cancer, Chest Pain / Angina, COPD, GERD/Reflux, Hearing Disorder / Deafness, Hyperlipidemia, Hypertension, Myocardial Infarction ([place]), Osteoarthritis (OA), Prostate Disorder, Pulmonary Embolus (PE) Additional Past Medical History / Comment(s): Pt recently admitted to [facility] on 10/18/21 with anemia, myelofibrosis, gastritis, colitis, exacerbation COPD, acute of chronic respiratory failure, abdominal pain/enlarged spleen, CKD. Other hx: Interstitial lung disease, pulmonary fibrosis, PE in 2011-pt cannot recall laterality, past home O2 use but none now, RIANA-cannot tolerate Cpap, prostate cancer with radiation treatment, skin cancer with removals, nephrolithiasis, migraines, compression fracture low back, bilateral elbow fractures with surgery, PUD, jaundiced as a child, [place] bilaterally. "mild" [place] in january 2020.Myelofibrosis Last Myocardial Infarction Date:: January 2020 History of Any Multi-Drug Resistant Organisms: None Reported Year Discovered:: October 26 2021 Past Surgical History: Appendectomy, Cholecystectomy, Heart Catheterization, Heart Catheterization With Stent, Hernia Repair, Joint Replacement, Orthopedic Surgery Additional Past Surgical History / Comment(s): Prostate biopsy, R hip hemiarthroplasty, L hand partial amp of 2 fingers, L knee ACL repair, R knee art hroscopy, bilateral total elbow replacements per pt, bilateral cataract removals, L inguinal hernia repair, cardiac caths x 2, EGD, colonoscopy, skin cancer removals. Past Anesthesia/Blood Transfusion Reactions: No Reported Reaction Date of Last Stent Placement:: January 2020. Smoking Status: Former smoker - Past Family History Brother(s) Family Medical History: Cancer Additional Family Medical History / Comment(s): ONE BROTHER HAD LUNG CA & ANOTHER HAD MELANOMA. Mother Family Medical History: AICD/Pacemaker Father Family Medical History: No Reported History Sister(s) Family Medical History: No Reported History Medications and Allergies Home Medications Medication Instructions Recorded Confirmed Type Pantoprazole Sodium [Protonix] 40 mg PO DAILY 03/08/16 10/31/21 History Vit C/E/Zn/Coppr/Lutein/Zeaxan 1 cap PO HS 12/12/18 10/31/21 History [Preservision Areds 2 Softgel] Sucralfate [Carafate] 1 gm PO AC-TID 07/16/21 10/31/21 History carvediloL [Coreg*] 12.5 mg PO BID 07/16/21 10/31/21 History lidocaine HCL [lidocaine HCL 5 ml MUCOUS MEM QID PRN 07/16/21 10/31/21 History Viscous] Cholecalciferol [Vitamin D3 (25 25 mcg PO HS 08/18/21 10/31/21 History Mcg = 1000 Iu)] Ergocalciferol (Vitamin D2) 1,250 mcg PO FR 08/18/21 10/31/21 History [Drisdol (50,000 Iu)] Super B Complex 1 tab PO HS 08/18/21 10/31/21 History Acetaminophen Tab [Tylenol] 650 mg PO Q6HR PRN tab 08/19/21 10/31/21 Rx LORazepam [Ativan] 0.5 mg PO TID 10/16/21 10/31/21 History amLODIPine [Norvasc] 5 mg PO DAILY 10/16/21 10/31/21 History Isosorbide Mononitrate ER [Imdur] 60 mg PO DAILY #30 tab 10/25/21 10/31/21 Rx guaiFENesin [Mucinex] 600 mg PO Q12HR PRN tab 10/25/21 10/31/21 Rx hydrALAZINE HCL [Apresoline] 50 mg PO TID-W/MEALS #180 tab 10/25/21 10/31/21 Rx Cholestyramine (with Sugar) 4 gm PO TID BETWEEN MEALS #30 10/26/21 10/31/21 Rx [Questran Packet] packet Diphenoxylate HCl/Atropine 1 tab PO Q6H PRN #0 10/26/21 10/31/21 Rx [Lomotil 2.5-0.025 mg Tablet] Vancomycin 125 mg PO QID #28 cap 10/26/21 10/31/21 Rx metroNIDAZOLE [Flagyl] 500 mg PO TID #21 tab 10/26/21 10/31/21 Rx Fluticasone Propion/Salmeterol 2 puff INHALATION RT-BID 10/31/21 10/31/21 History [Advair Hfa 115-21 Mcg Inhaler] predniSONE See Taper PO DIRECTED 10/31/21 10/31/21 History Allergies Allergy/AdvReac Type Severity Reaction Status Date / Time alprazolam [From Xanax] AdvReac Confusion Verified 10/31/21 13:29 Physical Exam Vitals: Vital Signs Temp Pulse Pulse Resp BP BP BP 11/01/21 15:00 98.3 F 92 18 122/70 11/01/21 07:15 98.0 F 92 18 167/60 11/01/21 05:29 170/69 11/01/21 02:21 97.8 F 83 17 180/79 10/31/21 20:13 98.3 F 81 18 134/49 10/31/21 20:00 81 18 10/31/21 18:48 98.1 F 92 16 145/61 10/31/21 17:23 85 14 186/91 Pulse Ox 11/01/21 15:00 94 L 11/01/21 07:15 91 L 11/01/21 05:29 11/01/21 02:21 94 L 10/31/21 20:13 92 L 10/31/21 20:00 10/31/21 18:48 93 L 10/31/21 17:23 94 L Intake and Output 11/01/21 11/01/21 11/01/21 06:59 14:59 22:59 Intake Total 236 Output Total 400 690 Balance -400 -454 Intake: Oral 236 Output: Urine 400 690 Other: Voiding Method Urinal # Voids 1 # Bowel Movements 1 Weight 74.843 kg - Constitutional General appearance: cooperative, no acute distress, thin - EENT Eyes: anicteric sclerae, EOMI ENT: hearing grossly normal, normal oropharynx - Neck Neck: no lymphadenopathy - Respiratory Respiratory: bilateral: CTA - Cardiovascular Rhythm: regular Heart sounds: normal: S1, S2 Abnormal Heart Sounds: no systolic murmur, no diastolic murmur, no rub, no S3 Gallop, no S4 Gallop, no click, no other - Gastrointestinal General gastrointestinal: no absent bowel sounds, no decreased bowel sounds, no distended, no hepatomegaly, no hyperactive bowel sounds, normal bowel sounds, no organomegaly, no rigid, no scaphoid, soft, splenomegaly (into pelvis, does not cross midline ), no tenderness, no umbilical hernia, no ventral hernia - Neurologic Neurologic: CNII-XII intact - Musculoskeletal Musculoskeletal: generalized weakness - Psychiatric Psychiatric: A&O x's 3, appropriate affect, intact judgment & insight Results CBC & Chem 7: 11/01/21 04:33 11/01/21 04:33 Labs: Abnormal Lab Results - Last 24 Hours (Table) 11/01/21 11/01/21 Range/Units 04:33 04:33 RBC 3.32 L (4.40-5.60) X 10*6/uL Hgb 8.5 L (13.0-17.0) g/dL Hct 28.4 L (39.6-50.0) % MCH 25.6 L (27.0-32.0) pg MCHC 29.9 L (32.0-37.0) g/dL RDW 22.4 H (11.5-14.5) % Absolute Nucleated RBC 0.12 H (0.00-0.00) X 10*3/uL Lymphocytes # (Manual) 0.18 L (0.90-5.00) X 10*3/uL Monocytes # (Manual) 0.06 L (0.20-1.00) X 10*3/uL Eosinophils # (Manual) 0 L (0.04-0.35) X 10*3/uL Basophils # (Manual) 0.12 H (0.00-0.10) X 10*3/uL NRBC/100 WBC Diff 2.0 H (0.0-0.0) /100 WBCS Creatinine 1.7 H (0.6-1.5) mg/dL Est GFR (CKD-EPI)AfAm 43.2 L (60.0-200.0) Est GFR (CKD-EPI)NonAf 37.3 L (60.0-200.0) Glucose 66 L (70-110) mg/dL Calcium 7.5 L (8.7-10.3) mg/dL Comments: KUB xray report reviewed Assessment and Plan (1) Myelofibrosis Current Visit: Yes Status: Chronic Priority: Medium Code(s): D75.81 - MYELOFIBROSIS SNOMED Code(s): 95707424 (2) Anemia Current Visit: Yes Status: Chronic Priority: Medium Code(s): D64.9 - ANEMIA, UNSPECIFIED SNOMED Code(s): 574602081 Plan: Cont to hold jakafi. Not sure if diarrhea was all r/t jakafi-pt states he has not been on it since 10/15. He said he used antidiarrheals but he can't tell me how much or how often. Pt understands that there are no other current treatment options for his disease. Encouraged pt eat, drink and participate in PT/OT and rehab if he qualifies. Told him we could meet in the ofc and revisit Inezdee in the future when he is stronger and feeling better to see if we can develop a plan. Pt has anemia of CKD, he has missed his last 2 injections, due tomorrow-ilan ordered. Cont supportive care Labs daily Time with Patient: Greater than 30
[2021-11-01] MEDS: CHOLECALCIFEROL 25 MCG (1000 IU) TABLET PO SCH (20:14)
[2021-11-02] MEDS ORDERED: DICLOFENAC SODIUM GEL 100 GM TUBE TOPICAL PRN
[2021-11-02] MEDS: SODIUM CHLORIDE 0.9% 1,000 ML IV SCH ×3 (02:10→19:00)
[2021-11-02] MEDS: SYMBICORT 160-4.5 MCG INHALER INHALATION SCH ×2 (07:43→19:51)
[2021-11-02] MEDS: amLODIPine 5 MG TAB PO SCH (08:19)
[2021-11-02] MEDS: SUCRALFATE 1 GM TAB PO SCH ×3 (08:19→17:07)
[2021-11-02] MEDS: hydrALAZINE HCL 50 MG TAB PO SCH ×3 (08:19→17:07)
[2021-11-02] MEDS: ISOSORBIDE MONONITRATE ER 60 MG TAB.ER.24H PO SCH (08:20)
[2021-11-02] MEDS: carvediloL 12.5 MG TAB PO SCH ×2 (08:20→17:08)
[2021-11-02] MEDS: CHOLESTYRAMINE (WITH SUGAR) 4 GM PACKET PO SCH ×3 (08:20→19:00)
[2021-11-02] MEDS: PANTOPRAZOLE 40 MG TABLET PO SCH (08:20)
[2021-11-02] MEDS: LORazepam 0.5 MG TAB PO SCH ×3 (08:27→22:12)
[2021-11-02] MEDS ORDERED: DARBEPOETIN ALFA 40 MCG/0.4 ML SYRINGE SQ SCH (09:00)
[2021-11-02 10:59] LABS: Anisocytosis Moderate; Basophils % (A) 0 %; Eosinophils % (A) 1 %; HCT 25.9 % (39.0-53.0); Hypochromasia Slight; Lymphocytes # (A) 0.8 k/uL (1.0-4.8); Lymphocytes % (A) 16 %; MCHC 32.1 g/dL (31.0-37.0); Mean Platelet Volume 10.9; Microcytosis Slight; Monocytes # (A) 0.3 k/uL (0-1.0); Monocytes % (A) 6 %; Neutrophils # (A) 3.8 k/uL (1.3-7.7); Neutrophils % (A) 75 %; Platelet Count 149 k/uL (150-450); Poikilocytosis Slight; RBC 3.08 m/uL (4.30-5.90); RDW 21.6 % (11.5-15.5); WBC 5.1 k/uL (3.8-10.6)
[2021-11-02 11:09] LABS: ALT 17 U/L (4-49); AST 17 U/L (17-59); African American GFR (CKD) 42 (>60 ml/min/1.73 sqM); Albumin 2.7 g/dL (3.5-5.0); Albumin/Globulin Ratio 1.2; Alkaline Phosphatase 101 U/L (38-126); Anion Gap 3 mmol/L; Blood Urea Nitrogen 23 mg/dL (9-20); Calcium 7.5 mg/dL (8.4-10.2); Carbon Dioxide 23 mmol/L (22-30); Chloride 111 mmol/L (98-107); Globulin 2.2 g/dL; Glucose 163 mg/dL (74-99); HGB 8.3 gm/dL (13.0-17.5); Non-African American GFR(CKD) 36 (>60 ml/min/1.73 sqM); Potassium 3.8 mmol/L (3.5-5.1); Sodium 137 mmol/L (137-145); Total Bilirubin 0.9 mg/dL (0.2-1.3); Total Protein 4.9 g/dL (6.3-8.2)
--- NOTE | 2021-11-02 18:32 | P.PN ---
Subjective Progress Note Date: 11/02/21 Principal diagnosis: Abdominal pain Annual male patient presented to the emergency room with chief complaint of abdominal pain with nausea vomiting and diarrhea. Patient presented via EMS and has a past medical history of COPD myelofibrosis, splenomegaly, chronic kidney disease, hypertension and anemia. Patient did have a recent hospitalization from 10/18/2021 through 10/26/2021 which she was diagnosed with pneumonia and had elevated troponins. Patient did have EGD and colonoscopy at last admission. Patient is noted to have 2 episodes of diarrhea on the morning of admission. Patient denied any fevers, chest pain, shortness of breath or difficulty breathing. Objective - Vital Signs Vital signs: Vital Signs Temp 97.6 F 11/02/21 14:26 Pulse 83 11/02/21 14:26 Resp 18 11/02/21 14:26 BP 129/50 11/02/21 14:26 Pulse Ox 93 L 11/02/21 14:26 FiO2 Intake & Output 11/01/21 11/02/21 11/02/21 18:59 06:59 18:59 Intake Total 476 948 Output Total 690 1500 350 Balance -214 -1500 598 Weight 74.843 kg Intake: Oral 476 948 Output: Urine 690 1500 350 Other: Voiding Method Urinal Urinal # Voids 1 2 # Bowel Movements 1 2 - Exam GENERAL: Well-appearing, well-nourished and in no acute distress. Elderly male on 2 L nasal cannula HEAD: Atraumatic, normocephalic. EYES: Pupils equal round and reactive to light, extraocular movements intact, sclera anicteric, conjunctiva are normal. ENT:nares patent, oropharynx clear without exudates. Moist mucous membranes. NECK: Normal range of motion, supple without lymphadenopathy or JVD, no thyromegaly LUNGS: Breath sounds clear and diminished throughout to auscultation bilaterally and equal. No wheezes rales or rhonchi. HEART: Regular rate and rhythm without murmurs, rubs or gallops.S1S2 Normal ABDOMEN: Soft, nontender, normoactive bowel sounds. No guarding, no rebound. No masses appreciated. EXTREMITIES: Normal range of motion, no pitting or edema. No clubbing or cyanosis. NEUROLOGICAL: Cranial nerves II through XII grossly intact. Normal speech, normal gait. PSYCH: Normal mood, normal affect. SKIN: Warm, Dry, normal turgor, no rashes or lesions noted. - Labs CBC & Chem 7: 11/02/21 10:39 11/02/21 10:39 Labs: Abnormal Lab Results - Last 24 Hours (Table) 11/02/21 11/02/21 Range/Units 10:39 10:39 RBC 3.08 L (4.30-5.90) m/uL Hgb 8.3 L D (13.0-17.5) gm/dL Hct 25.9 L (39.0-53.0) % RDW 21.6 H (11.5-15.5) % Plt Count 149 L (150-450) k/uL Lymphocytes # 0.8 L (1.0-4.8) k/uL Chloride 111 H (98-107) mmol/L BUN 23 H (9-20) mg/dL Creatinine 1.75 H (0.66-1.25) mg/dL Glucose 163 H (74-99) mg/dL Calcium 7.5 L (8.4-10.2) mg/dL Total Protein 4.9 L (6.3-8.2) g/dL Albumin 2.7 L (3.5-5.0) g/dL Assessment and Plan (1) CKD (chronic kidney disease), stage III Current Visit: Yes Status: Acute Code(s): N18.30 - CHRONIC KIDNEY DISEASE, STAGE 3 UNSPECIFIED SNOMED Code(s): 040980779 (2) Diarrhea Current Visit: Yes Status: Acute Code(s): R19.7 - DIARRHEA, UNSPECIFIED SNOMED Code(s): 47983982 (3) Nausea & vomiting Current Visit: Yes Status: Acute Code(s): R11.2 - NAUSEA WITH VOMITING, UNSPECIFIED SNOMED Code(s): 77729106 (4) Anemia Current Visit: Yes Status: Chronic Priority: Medium Code(s): D64.9 - ANEMIA, UNSPECIFIED SNOMED Code(s): 840630951 (5) Myelofibrosis Current Visit: Yes Status: Chronic Priority: Medium Code(s): D75.81 - MYELOFIBROSIS SNOMED Code(s): 56805566 (6) Abdominal pain Current Visit: No Status: Acute Code(s): R10.9 - UNSPECIFIED ABDOMINAL PAIN SNOMED Code(s): 36241612 (7) Anxiety Current Visit: No Status: Acute Code(s): F41.9 - ANXIETY DISORDER, UNSPEC IFIED SNOMED Code(s): 17061195 Plan: Continue with current medication regimen as prescribed We'll transfer to rehab facility, case management working and bed available at [facility] in the [place] Pantoprazole for GI prophylaxis Zofran for nausea Lorazepam for anxiety Healthy heart diet CBC and comp ordered for tomorrow Probable discharge to rehab tomorrow We'll continue to follow closely and reassess again tomorrow Time with Patient: Greater than 30
[2021-11-02] MEDS: ACETAMINOPHEN TAB 325 MG TAB PO PRN (20:07)
[2021-11-02] MEDS: CHOLECALCIFEROL 25 MCG (1000 IU) TABLET PO SCH (20:07)
[2021-11-03] MEDS: SODIUM CHLORIDE 0.9% 1,000 ML IV SCH ×2 (02:49→10:41)
--- NOTE | 2021-11-03 05:51 | P.HPIM ---
History of Present Illness H&P Date: 11/01/21 Chief Complaint: Abdominal pain 81-year-old male patient presented emergency room via EMS at 10/31/2021 for worsening fatigue, diarrhea, and abdominal pain. His symptoms started earlier this morning. He was recently hospitalized from October 18- she was diagnosed with pneumonia, diarrhea and was noted to have an elevated troponin at that time. He was placed on vancomycin and Flagyl for pseudomembranous colitis was noted be negative for C. diff. Patient denied fever, chest pain, shortness of breath or difficulty breathing. Past medical history with COPD, anemia, splen omegaly, myelofibrosis, chronic kidney disease, hypertension, anxiety and depression with recent and sudden loss of spouse. Initial set of labs revealed a hemoglobin of 10.7, hematocrit 32.6, WBC count of 6.6, and a platelet count 168. Chemistry reveals a sodium 137, potassium 3.7, ESME 30, creatinine of 1.6, AST 25, ELT of 22. Patient's amylase was noted be 113 with lipase of 117. His initial set of vitals revealed a blood pressure 122/70, 94% SpO2 on room air, pulse rate of 92 and temperature of 98.3. Review of Systems Constitutional: Reports weakness Ears, nose, mouth and throat: Reports as per HPI Cardiovascular: Denies as per HPI, Denies chest pain, Denies claudication, Denies decreased exercise tolerance, Denies dyspnea on exertion, Denies edema, Denies high blood pressure, Denies irregular heart beat, Denies leg edema, Denies lightheadedness, Denies orthopnea, Denies palpitations, Denies paroxysmal nocturnal dyspnea, Denies phlebitis, Denies rapid heart beat, Denies shortness of breath, Denies syncope Respiratory: Denies as per HPI, Denies congestion, Denies cough, Denies cough with sputum, Denies dyspnea, Denies excessive sputum, Denies hemoptysis, Denies home oxygen, Denies pain, Denies pain on inspiration, Denies pleurisy, Denies respiratory infections, Denies sleep apnea, Denies snoring, Denies wheezing Gastrointestinal: Reports abdominal pain, Reports diarrhea, Reports nausea, Denies belching, Denies coffee ground emesis, Denies constipation, Denies hematochezia, Denies vomiting Genitourinary: Denies genital pain, Denies nocturia, Denies testicular pain Musculoskeletal: Reports as per HPI Integumentary: Reports as per HPI Neurological: Reports weakness, Denies double vision, Denies gait dysfunction, Denies headaches, Denies loss of vision, Denies sensory deficit, Denies syncope Psychiatric: Reports anxiety, Reports depression, Denies anxiety attacks, Denies insomnia, Denies sleep disturbances, Denies suicidal ideation Endocrine: Reports fatigue, Denies cold intolerance, Denies low blood sugars, Denies weight change Hematologic/Lymphatic: Reports as per HPI Allergic/Immunologic: Reports as per HPI Past Medical History Past Medical History: Cancer, Chest Pain / Angina, COPD, GERD/Reflux, Hearing Disorder / Deafness, Hyperlipidemia, Hypertension, Myocardial Infarction (CA), Osteoarthritis (OA), Prostate Disorder, Pulmonary Embolus (PE) Additional Past Medical History / Comment(s): Pt recently admitted to [facility] on 10/18/21 with anemia, myelofibrosis, gastritis, colitis, exacerbation COPD, acute of chronic respiratory failure, abdominal pain/enlarged spleen, CKD. Other hx: Interstitial lung disease, pulmonary fibrosis, PE in 2011-pt cannot recall laterality, past home O2 use but none now, RIANA-cannot tolerate Cpap, prostate cancer with radiation treatment, skin cancer with removals, nephrolithiasis, migraines, compression fracture low back, bilateral elbow fractures with surgery, PUD, jaundiced as a child, KAW bilaterally. "mild" CA in january 2020.Myelofibrosis Last Myocardial Infarction Date:: January 2020 History of Any Multi-Drug Resistant Organisms: None Reported Date of last positivie culture/infection: October 26 2021 Past Surgical History: Appendectomy, Cholecystectomy, Heart Catheterization, Heart Catheterization With Stent, Hernia Repair, Joint Replacement, Orthopedic Surgery Additional Past Surgical History / Comment(s): Prostate biopsy, R hip hemiarthroplasty, L hand partial amp of 2 fingers, L knee ACL repair, R knee arthroscopy, bilateral total elbow replacements per pt, bilateral cataract removals, L inguinal hernia repair, cardiac caths x 2, EGD, colonoscopy, skin cancer removals. Past Anesthesia/Blood Transfusion Reactions: No Reported Reaction Date of Last Stent Placement:: January 2020. Smoking Status: Former smoker - Past Family History Brother(s) Family Medical History: Cancer Additional Family Medical History / Comment(s): ONE BROTHER HAD LUNG CA & ANOTHER HAD MELANOMA. Mother Family Medical History: AICD/Pacemaker Father Family Medical History: No Reported History Sister(s) Family Medical History: No Reported History Medications and Allergies Home Medications Medication Instructions Recorded Confirmed Type Pantoprazole Sodium [Protonix] 40 mg PO DAILY 03/08/16 10/31/21 History Vit C/E/Zn/Coppr/Lutein/Zeaxan 1 cap PO HS 12/12/18 10/31/21 History [Preservision Areds 2 Softgel] Sucralfate [Carafate] 1 gm PO AC-TID 07/16/21 10/31/21 History carvediloL [Coreg*] 12.5 mg PO BID 07/16/21 10/31/21 History lidocaine HCL [lidocaine HCL 5 ml MUCOUS MEM QID PRN 07/16/21 10/31/21 History Viscous] Cholecalciferol [Vitamin D3 (25 25 mcg PO HS 08/18/21 10/31/21 History Mcg = 1000 Iu)] Ergocalciferol (Vitamin D2) 1,250 mcg PO FR 08/18/21 10/31/21 History [Drisdol (50,000 Iu)] Super B Complex 1 tab PO HS 08/18/21 10/31/21 History Acetaminophen Tab [Tylenol] 650 mg PO Q6HR PRN tab 08/19/21 10/31/21 Rx LORazepam [Ativan] 0.5 mg PO TID 10/16/21 10/31/21 History amLODIPine [Norvasc] 5 mg PO DAILY 10/16/21 10/31/21 History Isosorbide Mononitrate ER [Imdur] 60 mg PO DAILY #30 tab 10/25/21 10/31/21 Rx guaiFENesin [Mucinex] 600 mg PO Q12HR PRN tab 10/25/21 10/31/21 Rx hydrALAZINE HCL [Apresoline] 50 mg PO TID-W/MEALS #180 tab 10/25/21 10/31/21 Rx Cholestyramine (with Sugar) 4 gm PO TID BETWEEN MEALS #30 10/26/21 10/31/21 Rx [Questran Packet] packet Diphenoxylate HCl/Atropine 1 tab PO Q6H PRN #0 10/26/21 10/31/21 Rx [Lomotil 2.5-0.025 mg Tablet] Vancomycin 125 mg PO QID #28 cap 10/26/21 10/31/21 Rx metroNIDAZOLE [Flagyl] 500 mg PO TID #21 tab 10/26/21 10/31/21 Rx Fluticasone Propion/Salmeterol 2 puff INHALATION RT-BID 10/31/21 10/31/21 History [Advair Hfa 115-21 Mcg Inhaler] predniSONE See Taper PO DIRECTED 10/31/21 10/31/21 History Allergies Allergy/AdvReac Type Severity Reaction Status Date / Time alprazolam [From Xanax] AdvReac Confusion Verified 10/31/21 13:29 Physical Exam Vitals: Vital Signs Temp Pulse Pulse Resp BP BP Pulse Ox 11/03/21 00:17 98.0 F 87 20 148/70 96 11/02/21 20:00 16 11/02/21 19:00 98.3 F 88 22 148/69 94 L 11/02/21 14:26 97.6 F 83 18 129/50 93 L 11/02/21 14:00 83 18 11/02/21 08:00 94 17 11/02/21 07:00 98.0 F 94 17 155/73 93 L Intake and Output 11/02/21 11/02/21 11/03/21 14:59 22:59 06:59 Intake Total 711 474 Output Total 350 400 Balance 361 74 Intake: Oral 711 474 Output: Urine 350 400 Other: Voiding Method Urinal # Voids 2 GENERAL: Elderly, thin, Well-appearing, well-nourished and in no acute distress. HEAD: Atraumatic, normocephalic. EYES: Pupils equal round and reactive to light, extraocular movements intact, sclera anicteric, conjunctiva are normal. ENT:nares patent, oropharynx clear without exudates. Moist mucous membranes. NECK: Normal range of motion, supple without lymphadenopathy or JVD, no thy romegaly LUNGS: Breath sounds clear to auscultation bilaterally and equal. No wheezes rales or rhonchi. HEART: Regular rate and rhythm without murmurs, rubs or gallops.S1S2 Normal ABDOMEN: Soft, nontender, normoactive bowel sounds. No guarding, no rebound. No masses appreciated. EXTREMITIES: Normal range of motion, no pitting or edema. No clubbing or cyanosis. NEUROLOGICAL: Cranial nerves II through XII grossly intact. Normal speech, normal gait. PSYCH: Normal mood, normal affect. SKIN: Warm, Dry, normal turgor, no rashes or lesions noted. Results CBC & Chem 7: 11/02/21 10:39 11/02/21 10:39 Labs: Abnormal Lab Results - Last 24 Hours (Table) 11/02/21 11/02/21 Range/Units 10:39 10:39 RBC 3.08 L (4.30-5.90) m/uL Hgb 8.3 L D (13.0-17.5) gm/dL Hct 25.9 L (39.0-53.0) % RDW 21.6 H (11.5-15.5) % Plt Count 149 L (150-450) k/uL Lymphocytes # 0.8 L (1.0-4.8) k/uL Chloride 111 H (98-107) mmol/L BUN 23 H (9-20) mg/dL Creatinine 1.75 H (0.66-1.25) mg/dL Glucose 163 H (74-99) mg/dL Calcium 7.5 L (8.4-10.2) mg/dL Total Protein 4.9 L (6.3-8.2) g/dL Albumin 2.7 L (3.5-5.0) g/dL Thrombosis Risk Factor Assmnt - Choose All That Apply Any of the Below Risk Factors Present?: Yes Each Factor Represents 1 point: Abnormal pulmonary function (COPD) Other Risk Factors: Yes Each Risk Factor Represents 2 Points: Malignancy Each Risk Factor Represents 3 Points: Age 75 years or older Other congenital or acquired thrombophilia - If yes, enter type in comment: No Thrombosis Risk Factor Assessment Total Risk Factor Score: 6 Thrombosis Risk Factor Assessment Level: High Risk Assessment and Plan (1) CKD (chronic kidney disease), stage III Current Visit: Yes Status: Acute Code(s): N18.30 - CHRONIC KIDNEY DISEASE, STAGE 3 UNSPECIFIED SNOMED Code(s): 186702744 (2) Diarrhea Current Visit: Yes Status: Acute Code(s): R19.7 - DIARRHEA, UNSPECIFIED SNOMED Code(s): 62261318 (3) Nausea & vomiting Current Visit: Yes Status: Acute Code(s): R11.2 - NAUSEA WITH VOMITING, UNSPECIFIED SNOMED Code(s): 69191297 (4) Anemia Current Visit: Yes Status: Chronic Priority: Medium Code(s): D64.9 - ANEMIA, UNSPECIFIED SNOMED Code(s): 839581084 (5) Myelofibrosis Current Visit: Yes Status: Chronic Priority: Medium Code(s): D75.81 - MYELOFIBROSIS SNOMED Code(s): 74051518 (6) Abdominal pain Current Visit: No Status: Acute Code(s): R10.9 - UNSPECIFIED ABDOMINAL PAIN SNOMED Code(s): 34204065 (7) Anxiety Current Visit: No Status: Acute Code(s): F41.9 - ANXIETY DISORDER, UNSPECIFIED SNOMED Code(s): 98615132 (8) Essential (primary) hypertension Current Visit: No Status: Acute Code(s): I10 - ESSENTIAL (PRIMARY) HYPERTENSION SNOMED Code(s): 62831676 (9) H/O heart artery stent Current Visit: No Status: Acute Code(s): Z95.5 - PRESENCE OF CORONARY ANGIOPLASTY IMPLANT AND GRAFT SNOMED Code(s): 180257241 (10) H/O myocardial infarction, greater than 8 weeks Current Visit: No Status: Acute Code(s): I25.2 - OLD MYOCARDIAL INFARCTION SNOMED Code(s): 6819944 (11) Splenomegaly Current Visit: No Status: Chronic Priority: Medium Code(s): R16.1 - SPLENOMEGALY, NOT ELSEWHERE CLASSIFIED SNOMED Code(s): 47883528 Plan: Continue with current medication regimen as prescribed Pantoprazole for GI prophylaxis Zofran for nausea Lorazepam for anxiety Healthy heart diet CBC and comp ordered for tomorrow Continue to monitor vitals and lab work and treat accordingly Consult for physical therapy Consult for psychiatric evaluation for regarding depression Consult for hematology for myelodysplasia We'll continue to follow closely and reassess again tomorrow Time with Patient: Greater than 30
--- NOTE | 2021-11-03 05:59 | P.DS ---
Providers Date of admission: 11/02/21 09:59 Expected date of discharge: 11/03/21 Attending physician: Barrington Goyal Consults: 10/31/21 13:37 Consult Physician Urgent Consulting Provider: Moe Fong Consult Reason/Comments: depression Do you want consulting provider notified?: Already Contacted 11/01/21 13:14 Consult Physician Routine Consulting Provider: Vega Henriquez Consult Reason/Comments: mylodisplasia Do you want consulting provider notified?: Yes Primary care physician: Barrington Goyla - Discharge Diagnosis(es) (1) CKD (chronic kidney disease), stage III Current Visit: Yes Status: Acute (2) Diarrhea Current Visit: Yes Status: Acute (3) Nausea & vomiting Current Visit: Yes Status: Acute (4) Anemia Current Visit: Yes Status: Chronic Priority: Medium (5) Myelofibrosis Current Visit: Yes Status: Chronic Priority: Medium (6) Abdominal pain Current Visit: No Status: Acute (7) Anxiety Current Visit: No Status: Acute (8) Essential (primary) hypertension Current Visit: No Status: Acute (9) H/O heart artery stent Current Visit: No Status: Acute (10) H/O myocardial infarction, greater than 8 weeks Current Visit: No Status: Acute (11) Splenomegaly Current Visit: No Status: Chronic Priority: Medium Hospital Course: 19-year-old male presented emergency room chief complaint abdominal pain, vomiting, nausea, and diarrhea. Patient had been recently admitted on 10/18/2021 and discharged on 10/26/2021 with a diagnosis of pneumonia and elevated troponins. He did undergo EGD and colonoscopy at that time and was p laced on vancomycin and Flagyl pseudomembranous colitis and discharged home. On the morning of 10/31/2021 patient started developing worsening fatigue, weakness, nausea, and continued diarrhea. Psychiatry was consulted for continued anxiety and depression as patient is a recent sudden loss of spouse. Hematology was also consulted regarding his myelodysplasia. Patient Condition at Discharge: Stable Plan - Discharge Summary Discharge Rx Participant: No New Discharge Prescriptions: No Action Pantoprazole Sodium [Protonix] 40 mg PO DAILY Vit C/E/Zn/Coppr/Lutein/Zeaxan [Preservision Areds 2 Softgel] 1 cap PO HS lidocaine HCL [lidocaine HCL Viscous] 5 ml MUCOUS MEM QID PRN PRN Reason: Pain Super B Complex 1 tab PO HS Ergocalciferol (Vitamin D2) [Drisdol (50,000 Iu)] 1,250 mcg PO FR LORazepam [Ativan] 0.5 mg PO TID amLODIPine [Norvasc] 5 mg PO DAILY hydrALAZINE HCL [Apresoline] 50 mg PO TID-W/MEALS #180 tab Cholestyramine (with Sugar) [Questran Packet] 4 gm PO TID BETWEEN MEALS #30 packet metroNIDAZOLE [Flagyl] 500 mg PO TID #21 tab Sucralfate [Carafate] 1 gm PO AC-TID carvediloL [Coreg*] 12.5 mg PO BID Cholecalciferol [Vitamin D3 (25 Mcg = 1000 Iu)] 25 mcg PO HS Acetaminophen Tab [Tylenol] 650 mg PO Q6HR PRN tab PRN Reason: Mild Pain Or Fever > 100.5 Isosorbide Mononitrate ER [Imdur] 60 mg PO DAILY #30 tab guaiFENesin [Mucinex] 600 mg PO Q12HR PRN tab PRN Reason: Cough Vancomycin 125 mg PO QID #28 cap Diphenoxylate HCl/Atropine [Lomotil 2.5-0.025 mg Tablet] 1 tab PO Q6H PRN #0 PRN Reason: Diarrhea predniSONE See Taper PO DIRECTED Fluticasone Propion/Salmeterol [Advair Hfa 115-21 Mcg Inhaler] 2 puff INHALATION RT-BID Discharge Medication List Pantoprazole Sodium [Protonix] 40 mg PO DAILY 03/08/16 [History] Vit C/E/Zn/Coppr/Lutein/Zeaxan [Preservision Areds 2 Softgel] 1 cap PO HS 12/12/18 [History] Sucralfate [Carafate] 1 gm PO AC-TID 07/16/21 [History] carvediloL [Coreg*] 12.5 mg PO BID 07/16/21 [History] lidocaine HCL [lidocaine HCL Viscous] 5 ml MUCOUS MEM QID PRN 07/16/21 [History] Cholecalciferol [Vitamin D3 (25 Mcg = 1000 Iu)] 25 mcg PO HS 08/18/21 [History] Ergocalciferol (Vitamin D2) [Drisdol (50,000 Iu)] 1,250 mcg PO FR 08/18/21 [History] Super B Complex 1 tab PO HS 08/18/21 [History] Acetaminophen Tab [Tylenol] 650 mg PO Q6HR PRN tab 08/19/21 [Rx] LORazepam [Ativan] 0.5 mg PO TID 10/16/21 [History] amLODIPine [Norvasc] 5 mg PO DAILY 10/16/21 [History] Isosorbide Mononitrate ER [Imdur] 60 mg PO DAILY #30 tab 10/25/21 [Rx] guaiFENesin [Mucinex] 600 mg PO Q12HR PRN tab 10/25/21 [Rx] hydrALAZINE HCL [Apresoline] 50 mg PO TID-W/MEALS #180 tab 10/25/21 [Rx] Cholestyramine (with Sugar) [Questran Packet] 4 gm PO TID BETWEEN MEALS #30 packet 10/26/21 [Rx] Diphenoxylate HCl/Atropine [Lomotil 2.5-0.025 mg Tablet] 1 tab PO Q6H PRN #0 10/26/21 [Rx] Vancomycin 125 mg PO QID #28 cap 10/26/21 [Rx] metroNIDAZOLE [Flagyl] 500 mg PO TID #21 tab 10/26/21 [Rx] Fluticasone Propion/Salmeterol [Advair Hfa 115-21 Mcg Inhaler] 2 puff INHALATION RT-BID 10/31/21 [History] predniSONE See Taper PO DIRECTED 10/31/21 [History] Follow up Appointment(s)/Referral(s): Barrington Goyal Jr, [Primary Care Provider] - 1-2 days Activity/Diet/Wound Care/Special Instructions: Healthy heart diet Discharge Disposition: TRANSFER TO SNF/ECF
[2021-11-03] MEDS: SYMBICORT 160-4.5 MCG INHALER INHALATION SCH (07:13)
[2021-11-03 08:04] VITALS: RESP 17
[2021-11-03] MEDS: SUCRALFATE 1 GM TAB PO SCH ×2 (08:34→12:56)
[2021-11-03] MEDS: carvediloL 12.5 MG TAB PO SCH (08:35)
[2021-11-03] MEDS: CHOLESTYRAMINE (WITH SUGAR) 4 GM PACKET PO SCH ×2 (08:35→15:52)
[2021-11-03] MEDS: PANTOPRAZOLE 40 MG TABLET PO SCH (08:35)
[2021-11-03] MEDS: amLODIPine 5 MG TAB PO SCH (08:35)
[2021-11-03] MEDS: ISOSORBIDE MONONITRATE ER 60 MG TAB.ER.24H PO SCH (08:35)
[2021-11-03] MEDS: LORazepam 0.5 MG TAB PO SCH ×2 (08:35→15:52)
[2021-11-03] MEDS: hydrALAZINE HCL 50 MG TAB PO SCH ×2 (08:35→12:56)
[2021-11-03 09:08] LABS: Albumin 3.2 g/dL (3.8-4.9); Albumin/Globulin Ratio 1.64 (1.60-3.17); Anion Gap 8.5 mmol/L (10.00-18.00); BUN/Creat Ratio 12.75 Ratio (12.00-20.00); Blood Urea Nitrogen 24.1 mg/dL (9.0-27.0); Calcium 8.3 mg/dL (8.7-10.3); Globulin 1.9 g/dL (1.6-3.3); Non-African American GFR(CKD) 32.8 (60.0-200.0); Potassium 4.2 mmol/L (3.5-5.5); Total Bilirubin 0.8 mg/dL (0.30-1.20); Total Protein 5.1 g/dL (6.2-8.2)
[2021-11-03 10:08] LABS: Basophils # (A) 0.01 X 10*3/uL (0.00-0.10); Basophils % (A) 0.2 %; Eosinophils # (A) 0.07 X 10*3/uL (0.04-0.35); Eosinophils % (A) 1.3 %; HCT 24.9 % (39.6-50.0); HGB 7.7 g/dL (13.0-17.0); Immature Grans, Automated 4.8 %; Lymphocytes # (A) 0.87 X 10*3/uL (0.90-5.00); Lymphocytes % (A) 16.7 %; MCH 26.1 pg (27.0-32.0); MCHC 30.9 g/dL (32.0-37.0); MCV 84.4 fL (80.0-97.0); Monocytes # (A) 0.32 X 10*3/uL (0.20-1.00); Monocytes % (A) 6.1 %; NRBC Per 100 WBC 1.5 /100 WBCS (0.0-0.0); Neutrophils % (A) 70.9 %; Platelet Count 126 X 10*3/uL (140-440); RBC 2.95 X 10*6/uL (4.40-5.60); RDW 22.5 % (11.5-14.5); WBC 5.22 X 10*3/uL (4.50-10.00)
[2021-11-03 11:46] VITALS: BP 151/69; PULSE 64; TEMP 97.9
--- NOTE | 2021-11-03 14:04 | P.PN ---
Subjective Progress Note Date: 11/03/21 Principal diagnosis: myelofibrosis Feeling better today, planning on discharge per primary team. Renal function is trending up and platelets and Hg appear to be trending down Objective - Vital Signs Vital signs: Vital Signs Temp 97.9 F 11/03/21 11:05 Pulse 64 11/03/21 11:05 Resp 17 11/03/21 11:05 BP 151/69 11/03/21 11:05 Pulse Ox 95 11/03/21 11:05 FiO2 Intake & Output 11/02/21 11/03/21 11/03/21 18:59 06:59 18:59 Intake Total 1185 Output Total 350 1000 600 Balance 835 -1000 -600 Intake: Oral 1185 Output: Urine 350 1000 600 Other: Voiding Method Urinal # Voids 2 4 - Exam - Constitutional General appearance: cooperative, no acute distress, thin - EENT Eyes: anicteric sclerae, EOMI ENT: hearing grossly normal, normal oropharynx - Neck Neck: no lymphadenopathy - Respiratory Respiratory: bilateral: CTA - Cardiovascular Rhythm: regular Heart sounds: normal: S1, S2 Abnormal Heart Sounds: no systolic murmur, no diastolic murmur, no rub, no S3 Gallop, no S4 Gallop, no click, no other - Gastrointestinal General gastrointestinal: Palpable Splenomegaly - Neurologic Neurologic: CNII-XII intact - Musculoskeletal Musculoskeletal: generalized weakness - Psychiatric Psychiatric: A&O x's 3, appropriate affect, intact judgment & insight - Labs CBC & Chem 7: 11/03/21 04:56 11/03/21 04:56 Labs: Abnormal Lab Results - Last 24 Hours (Table) 11/03/21 11/03/21 Range/Units 04:56 04:56 RBC 2.95 L (4.40-5.60) X 10*6/uL Hgb 7.7 L (13.0-17.0) g/dL Hct 24.9 L (39.6-50.0) % MCH 26.1 L (27.0-32.0) pg MCHC 30.9 L (32.0-37.0) g/dL RDW 22.5 H (11.5-14.5) % Plt Count 126 L (140-440) X 10*3/uL Plt Count Comment DECREASED A Absolute Nucleated RBC 0.08 H (0.00-0.00) X 10*3/uL Immature Gran # 0.25 H (0.00-0.04) X 10*3/uL Lymphocytes # 0.87 L (0.90-5.00) X 10*3/uL NRBC/100 WBC Diff 1.5 H (0.0-0.0) /100 WBCS Anion Gap 8.50 L (10.00-18.00) mmol/L Creatinine 1.9 H (0.6-1.5) mg/dL Est GFR (CKD-EPI)AfAm 38.0 L (60.0-200.0) Est GFR (CKD-EPI)NonAf 32.8 L (60.0-200.0) Calcium 8.3 L (8.7-10.3) mg/dL AST 13 L (14-35) U/L Total Protein 5.1 L (6.2-8.2) g/dL Albumin 3.2 L (3.8-4.9) g/dL Assessment and Plan Plan: Comments: KAYLAH xray report reviewed Assessment and Plan (1) Myelofibrosis Current Visit: Yes Status: Chronic Priority: Medium Code(s): D75.81 - MYELOFIBROSIS SNOMED Code(s): 53698956 - Continue to hold Jakafi, last dosage 10/15/21 (2) Anemia and Thrombocytopenia Current Visit: Yes Status: Chronic Priority: Medium Code(s): D64.9 - ANEMIA, UNSPECIFIED SNOMED Code(s): 537146678 (3) Acute Renal Insufficiency On CKD (Unknown stage - Receives Epogen - Please give injection prior to discharge Plan: - He is still weak and may require assistance through rehab services, will await final plan and continue to hold jakafi until he is seen in office 11/09/[address] Martinez Rojas Attest: I have completed the full history and physical and developed the above impression and plan, agree with dictation, dictated as a scribe
--- NOTE | 2021-11-03 14:25 | P.PN ---
Subjective Progress Note Date: 11/03/21 Principal diagnosis: Abdominal pain Annual male patient presented to the emergency room with chief complaint of abdominal pain with nausea vomiting and diarrhea. Patient presented via EMS and has a past medical history of COPD myelofibrosis, splenomegaly, chronic kidney disease, hypertension and anemia. Patient did have a recent hospitalization from 10/18/2021 through 10/26/2021 which she was diagnosed with pneumonia and had elevated troponins. Patient did have EGD and colonoscopy at last admission. Patient is noted to have 2 episodes of diarrhea on the morning of admission. Patient denied any fevers, chest pain, shortness of breath or difficulty breathing. 11/03/2021 patient was comfortably in chair at bedside at this time. Patient denies any chest pain pressure, nausea, vomiting or diarrhea. He does mention intermittent periods of shortness of breath with activity. Vital signs are stable. hemoglobin trending down and will be receiving Aranesp prior to tra nsfer. Patient has upcoming appointment with Dr. Henriquez on 11/09/2021. Objective - Vital Signs Vital signs: Vital Signs Temp 97.9 F 11/03/21 11:05 Pulse 64 11/03/21 11:05 Resp 17 11/03/21 11:05 BP 151/69 11/03/21 11:05 Pulse Ox 95 11/03/21 11:05 FiO2 Intake & Output 11/02/21 11/03/21 11/03/21 18:59 06:59 18:59 Intake Total 1185 Output Total 350 1000 600 Balance 835 -1000 -600 Intake: Oral 1185 Output: Urine 350 1000 600 Other: Voiding Method Urinal # Voids 2 4 - Exam GENERAL: Well-appearing, well-nourished and in no acute distress. Elderly male on 2 L nasal cannula HEAD: Atraumatic, normocephalic. EYES: Pupils equal round and reactive to light, extraocular movements intact, sclera anicteric, conjunctiva are normal. ENT:nares patent, oropharynx clear without exudates. Moist mucous membranes. NECK: Normal range of motion, supple without lymphadenopathy or JVD, no thyromegaly LUNGS: Breath sounds clear and diminished throughout to auscultation bilaterally and equal. No wheezes rales or rhonchi. HEART: Regular rate and rhythm without murmurs, rubs or gallops.S1S2 Normal ABDOMEN: Soft, nontender, normoactive bowel sounds. No guarding, no rebound. No masses appreciated. EXTREMITIES: Normal range of motion, no pitting or edema. No clubbing or cyanosis. NEUROLOGICAL: Cranial nerves II through XII grossly intact. Normal speech, normal gait. PSYCH: Normal mood, normal affect. SKIN: Warm, Dry, normal turgor, no rashes or lesions noted. - Labs CBC & Chem 7: 11/03/21 04:56 11/03/21 04:56 Labs: Abnormal Lab Results - Last 24 Hours (Table) 11/03/21 11/03/21 Range/Units 04:56 04:56 RBC 2.95 L (4.40-5.60) X 10*6/uL Hgb 7.7 L (13.0-17.0) g/dL Hct 24.9 L (39.6-50.0) % MCH 26.1 L (27.0-32.0) pg MCHC 30.9 L (32.0-37.0) g/dL RDW 22.5 H (11.5-14.5) % Plt Count 126 L (140-440) X 10*3/uL Plt Count Comment DECREASED A Absolute Nucleated RBC 0.08 H (0.00-0.00) X 10*3/uL Immature Gran # 0.25 H (0.00-0.04) X 10*3/uL Lymphocytes # 0.87 L (0.90-5.00) X 10*3/uL NRBC/100 WBC Diff 1.5 H (0.0-0.0) /100 WBCS Anion Gap 8.50 L (10.00-18.00) mmol/L Creatinine 1.9 H (0.6-1.5) mg/dL Est GFR (CKD-EPI)AfAm 38.0 L (60.0-200.0) Est GFR (CKD-EPI)NonAf 32.8 L (60.0-200.0) Calcium 8.3 L (8.7-10.3) mg/dL AST 13 L (14-35) U/L Total Protein 5.1 L (6.2-8.2) g/dL Albumin 3.2 L (3.8-4.9) g/dL Assessment and Plan (1) CKD (chronic kidney disease), stage III Current Visit: Yes Status: Acute Code(s): N18.30 - CHRONIC KIDNEY DISEASE, STAGE 3 UNSPECIFIED SNOMED Code(s): 743148941 (2) Diarrhea Current Visit: Yes Status: Acute Code(s): R19.7 - DIARRHEA, UNSPECIFIED SNOMED Code(s): 24485312 (3) Nausea & vomiting Current Visit: Yes Status: Acute Code(s): R11.2 - NAUSEA WITH VOMITING, UNSPECIFIED SNOMED Code(s): 26906573 (4) Anemia Current Visit: Yes Status: Chronic Priority: Medium Code(s): D64.9 - ANEMIA, UNSPECIFIED SNOMED Code(s): 609255645 (5) Myelofibrosis Current Visit: Yes Status: Chronic Priority: Medium Code(s): D75.81 - MYELOFIBROSIS SNOMED Code(s): 04723943 (6) Abdominal pain Current Visit: No Status: Acute Code(s): R10.9 - UNSPECIFIED ABDOMINAL PAIN SNOMED Code(s): 84609639 (7) Anxiety Current Visit: No Status: Acute Code(s): F41.9 - ANXIETY DISORDER, UNSPECIFIED SNOMED Code(s): 00296470 (8) Essential (primary) hypertension Current Visit: No Status: Acute Code(s): I10 - ESSENTIAL (PRIMARY) HYPERTENSION SNOMED Code(s): 30571497 (9) H/O heart artery stent Current Visit: No Status: Acute Code(s): Z95.5 - PRESENCE OF CORONARY ANGIOPLASTY IMPLANT AND GRAFT SNOMED Code(s): 358306930 (10) H/O myocardial infarction, greater than 8 weeks Current Visit: No Status: Acute Code(s): I25.2 - OLD MYOCARDIAL INFARCTION SNOMED Code(s): 4921891 (11) Splenomegaly Current Visit: No Status: Chronic Priority: Medium Code(s): R16.1 - SPLENOMEGALY, NOT ELSEWHERE CLASSIFIED SNOMED Code(s): 60076874 Plan: Patient continue on medications as prescribed Objective he will be held until seen in Dr. Henriquez office on 11/09/2021 Transfer to [facility] for rehab Time with Patient: Greater than 30
--- NOTE | 2021-11-04 12:54 | CDI ---
Documentation Clarification Form Date: 11/04/21 From: Arleen Robles Admit Date: 11/02/2021 09:59:00 AM Patient Name: Sergey Ward Visit Number: [id number] Discharge Date: 11/03/2021 04:41:00 PM ATTENTION: The Clinical Documentation Specialists (CDI) and [facility] Coding Staff appreciate your assistance in clarifying documentation. Please respond to the clarification below the line at the bottom and electronically sign. The CDI & [facility] Coding staff will review the response and follow-up if needed. Please note: Queries are made part of the Legal Health Record. If you have any questions, please contact the author of this message via ITS. Dr. Barrington Goyal, Your patient has the documented symptom of abdominal pain in the ED Note and H&P. Additional clarification regarding the etiology/cause of this symptom is requested. Patient history/risk factors: chronic myeloproliferative disease, chronic resp failure, thrombocytopenia, anemia in CKD, myelodysplastic syndrome, pulmonary fibrosis/COPD, HTN w CKD III Clinical Indicators: 81-year-old male patient presented emergency room via EMS at 10/31/2021 for worsening fatigue, diarrhea, and abdominal pain. His symptoms started earlier this morning. Radiology: KUB- The osseous structures are intact. The bowel gas pattern is nonspecific. Postsurgical change right hip. Surgical clips in the pelvis and right upper quadrant. Scoliosis with degenerative change of the spine. Spina bifida occulta of the sacrococcygeal region. Labs: BUN 30, Cr 1.60, GFR 40/37.3, CA 8.3, Amylase 113 Vital Signs: T 97.5, P 86, R 16, BP 188/89, O2 94 Treatment: Pantoprazole, Zofran, Lorazepam, Aranesp, Voltaren gel Please provide additional clarification regarding the etiology/cause of the abdominal pain: [ ] Abdominal pain due to acute renal failure [ ] Abdominal pain due to C. diff [ x] Abdominal pain due to Myelofibrosis [ ] Other, please specify [ ] Unable to determine MTDD
== END 2021-11-03 16:41 | DRG 841 ==
LOC: EC 10:28 → 6NMEDSUR 13:36 → OBSVTOIN 11-02 09:59 → 5NMEDONC 11-03 07:36
PROVIDERS: ADMIT Family Medicine; ATTEND Family Medicine
DX: C94.6 Myelodysplastic disease, not elsewhere classified (principal); A04.72 Enterocolitis due to Clostridium difficile, not specified as recurrent; J96.10 Chronic respiratory failure, unspecified whether with hypoxia or hypercapnia; D75.81 Myelofibrosis; D69.6 Thrombocytopenia, unspecified; D63.1 Anemia in chronic kidney disease; J84.10 Pulmonary fibrosis, unspecified; N18.30 Chronic kidney disease, stage 3 unspecified; J44.9 Chronic obstructive pulmonary disease, unspecified; Z20.822 Contact with and (suspected) exposure to COVID-19; I12.9 Hypertensive chronic kidney disease with stage 1 through stage 4 chronic kidney disease, or unspecified chronic kidney disease; G43.909 Migraine, unspecified, not intractable, without status migrainosus; K21.9 Gastro-esophageal reflux disease without esophagitis; E78.5 Hyperlipidemia, unspecified; I25.10 Atherosclerotic heart disease of native coronary artery without angina pectoris; F32.A Depression, unspecified; F41.9 Anxiety disorder, unspecified; I25.2 Old myocardial infarction; H91.90 Unspecified hearing loss, unspecified ear; R16.1 Splenomegaly, not elsewhere classified; R77.8 Other specified abnormalities of plasma proteins; G47.33 Obstructive sleep apnea (adult) (pediatric); N42.9 Disorder of prostate, unspecified; M19.90 Unspecified osteoarthritis, unspecified site; Z79.51 Long term (current) use of inhaled steroids; Z79.899 Other long term (current) drug therapy; Z86.711 Personal history of pulmonary embolism; Z85.46 Personal history of malignant neoplasm of prostate; Z95.5 Presence of coronary angioplasty implant and graft; Z85.828 Personal history of other malignant neoplasm of skin; Z92.3 Personal history of irradiation; Z87.442 Personal history of urinary calculi; Z87.11 Personal history of peptic ulcer disease; Z90.49 Acquired absence of other specified parts of digestive tract; Z87.19 Personal history of other diseases of the digestive system; Z87.891 Personal history of nicotine dependence; Z96.622 Presence of left artificial elbow joint; Z96.621 Presence of right artificial elbow joint; Z96.641 Presence of right artificial hip joint; Z88.8 Allergy status to other drugs, medicaments and biological substances; Z80.1 Family history of malignant neoplasm of trachea, bronchus and lung; Z80.8 Family history of malignant neoplasm of other organs or systems; Z82.49 Family history of ischemic heart disease and other diseases of the circulatory system
CPT/HCPCS: 36415; 74018; 80048; 80053; 81003; 82150; 83605; 83690; 84484; 85025; 87502; 87635; 93005; 94640; 96361; 96374; 99285

== ENCOUNTER 2022-01-06 10:53 | Inpatient (IN) | payer MEDICARE ==
[2022-01-06] MEDS ORDERED: DIPHENOX-ATROP 2.5-0.025 MG 1 EACH TAB PO STA (11:23)
[2022-01-06] MEDS ORDERED: SODIUM CHLORIDE 0.9% 500 ML 500 ML IV STA (11:23)
[2022-01-06] MEDS ORDERED: SODIUM CHLORIDE 0.9% 1,000 ML IV STA (11:23)
--- NOTE | 2022-01-06 11:28 | ED ---
General Adult HPI - General Chief complaint: Nausea/Vomiting/Diarrhea Stated complaint: Dehydration Time Seen by Provider: 01/06/22 11:05 Source: patient, EMS, RN notes reviewed, old records reviewed Mode of arrival: EMS Limitations: no limitations - History of Present Illness Initial comments: This is an 81-year-old male who presents emergency Department stating he's been having diarrhea since October. Patient states he had a colonoscopy in and an endo scopy and he continues to have diarrhea and he doesn't know why. Patient states he is having no abdominal pain he denies chest pain or any worsening difficulty breathing. Patient states he COPD and has shortness of breath regularly but is no worse today. Patient denies any recent fever chills or cough. Patient denies any nausea or vomiting. Patient states he is weak all over but he has been trying to keep up with eating and drinking. Patient denies any near syncopal episode. - Related Data Home Medications Medication Instructions Recorded Confirmed Pantoprazole Sodium [Protonix] 40 mg PO DAILY 03/08/16 10/31/21 Vit C/E/Zn/Coppr/Lutein/Zeaxan 1 cap PO HS 12/12/18 10/31/21 [Preservision Areds 2 Softgel] Sucralfate [Carafate] 1 gm PO AC-TID 07/16/21 10/31/21 carvediloL [Coreg*] 12.5 mg PO BID 07/16/21 10/31/21 Cholecalciferol [Vitamin D3 (25 25 mcg PO HS 08/18/21 10/31/21 Mcg = 1000 Iu)] Ergocalciferol (Vitamin D2) 1,250 mcg PO FR 08/18/21 10/31/21 [Drisdol (50,000 Iu)] Super B Complex 1 tab PO HS 08/18/21 10/31/21 amLODIPine [Norvasc] 5 mg PO DAILY 10/16/21 10/31/21 Fluticasone Propion/Salmeterol 2 puff INHALATION RT-BID 10/31/21 10/31/21 [Advair Hfa 115-21 Mcg Inhaler] Previous Rx's Medication Instructions Recorded Acetaminophen Tab [Tylenol] 650 mg PO Q6HR PRN tab 08/19/21 Isosorbide Mononitrate ER [Imdur] 60 mg PO DAILY #30 tab 10/25/21 guaiFENesin [Mucinex] 600 mg PO Q12HR PRN tab 10/25/21 hydrALAZINE HCL [Apresoline] 50 mg PO TID-W/MEALS #180 tab 10/25/21 Cholestyramine (with Sugar) 4 gm PO TID BETWEEN MEALS #30 10/26/21 [Questran Packet] packet Diphenoxylate HCl/Atropine 1 tab PO Q6H PRN #0 10/26/21 [Lomotil 2.5-0.025 mg Tablet] Darbepoetin Dennis [Aranesp] 40 mcg SQ Q7D #2 each 11/03/21 Diclofenac Sodium Gel [Voltaren 4 gm TOPICAL QID PRN gm 11/03/21 Gel] Allergies Allergy/AdvReac Type Severity Reaction Status Date / Time alprazolam [From Xanax] AdvReac Confusion Verified 01/06/22 11:03 Review of Systems ROS Statement: Those systems with pertinent positive or pertinent negative responses have been documented in the HPI. ROS Other: All systems not noted in ROS Statement are negative. Past Medical History Past Medical History: Hypertension, Myocardial Infarction ([place]) Additional Past Medical History / Comment(s): Pt recently admitted to [facility] on 10/18/21 with anemia, myelofibrosis, gastritis, colitis, exacerbation COPD, acute of chronic respiratory failure, abdominal pain/enlarged spleen, CKD. Other hx: Interstitial lung disease, pulmonary fibrosis, PE in 2011-pt cannot recall laterality, past home O2 use but none now, RIANA-cannot tolerate Cpap, prostate cancer with radiation treatment, skin cancer with removals, nephrolithiasis, migraines, compression fracture low back, bilateral elbow fractures with surgery, PUD, jaundiced as a child, [place] bilaterally. "mild" [place] in january 2020.Myelofibrosis Last Myocardial Infarction Date:: January 2020 History of Any Multi-Drug Resistant Organisms: None Reported Date of last positivie culture/infection: October 26 2021 Past Surgical History: Orthopedic Surgery Additional Past Surgical History / Comment(s): Prostate biopsy, R hip hemiarthroplasty, L hand partial amp of 2 fingers, L knee ACL repair, R knee arthroscopy, bilateral total elbow replacements per pt, bilateral cataract removals, L inguinal hernia repair, cardiac caths x 2, EGD, colonoscopy, skin cancer removals. Past Anesthesia/Blood Transfusion Reactions: No Reported Reaction Date of Last Stent Placement:: January 2020. Past Psychological History: Anxiety, Depression Smoking Status: Former smoker Past Alcohol Use History: None Reported Past Drug Use History: None Reported - Past Family History Brother(s) Family Medical History: Cancer Additional Family Medical History / Comment(s): ONE BROTHER HAD LUNG CA & ANOTHER HAD MELANOMA. Brother just recently last week. Mother Family Medical History: AICD/Pacemaker Father Family Medical History: No Reported History Sister(s) Family Medical History: No Reported History General Exam - General Exam Comments Initial Comments: GENERAL: Patient is well-developed and well-nourished. Patient is nontoxic and well- hydrated and is in mild distress. ENT: Neck is soft and supple. No significant lymphadenopathy is noted. Oropharynx is clear. Moist mucous membranes. Neck has full range of motion without eliciting any pain. EYES: The sclera were anicteric and conjunctiva were pink and moist. Extraocular movements were intact and pupils were equal round and reactive to light. Eyelids were unremarkable. PULMONARY: Unlabored respirations. Good breath sounds bilaterally. No audible rales rhonchi or wheezing was noted. CARDIOVASCULAR: There is a regular rate and rhythm without any murmurs gallops or rubs. ABDOMEN: Soft and nontender with normal bowel sounds. SKIN: Skin is clear with no lesions or rashes and otherwise unremarkable. NEUROLOGIC: Patient is alert and oriented x3. Cranial nerves II through XII are grossly intact. Motor and sensory are also intact. Normal speech, volume and content. Symmetrical smile. MUSCULOSKELETAL: Normal extremities with adequate strength and full range of motion. LYMPHATICS: No significant lymphadenopathy is noted PSYCHIATRIC: Normal psychiatric evaluation. Limitations: no limitations Course Vital Signs 01/06/22 01/06/22 10:54 13:11 Temperature 97.5 F L 97.9 F Pulse Rate 78 85 Respiratory 18 17 Rate Blood Pressure 191/76 163/74 O2 Sat by Pulse 95 93 L Oximetry Medical Decision Making - Medical Decision Making Patient was C. diff positive so started the patient on vancomycin. I spoke with Dr. garcia he agreed to admit the patient admitted the patient wrote admitting orders. - Lab Data Result diagrams: 01/06/22 11:42 01/06/22 11:42 Lab Results 01/06/22 01/06/22 01/06/22 Range/Units 11:42 11:42 11:42 WBC 6.3 (3.8-10.6) k/uL RBC 3.88 L (4.30-5.90) m/uL Hgb 10.5 L (13.0-17.5) gm/dL Hct 32.1 L (39.0-53.0) % MCV 82.6 (80.0-100.0) fL MCH 27.0 (25.0-35.0) pg MCHC 32.7 (31.0-37.0) g/dL RDW 20.4 H (11.5-15.5) % Plt Count 154 (150-450) k/uL MPV 11.1 Neutrophils % (Manual) 64 % Band Neuts % (Manual) 2 % Lymphocytes % (Manual) 23 % Monocytes % (Manual) 6 % Eosinophils % (Manual) 1 % Basophils % (Manual) 2 % Metamyelocytes % 3 % Myelocytes % 2 % Neutrophils # (Manual) 4.10 (1.3-7.7) k/uL Lymphocytes # (Manual) 1.45 (1.0-4.8) k/uL Monocytes # (Manual) 0.38 (0-1.0) k/uL Eosinophils # (Manual) 0.06 (0-0.7) k/uL Basophils # (Manual) 0.13 (0-0.2) k/uL Metamyelocytes # (Man) 0.19 H (0) k/uL Myelocytes # (Manual) 0.13 H (0) k/uL Nucleated RBCs 1 H (0-0) /100 WBC Manual Slide Review Performed Polychromasia Present Poikilocytosis Slight Poikilocytosis (manual Present Anisocytosis Moderate Microcytosis Slight Sodium 141 (137-145) mmol/L Potassium 4.0 (3.5-5.1) mmol/L Chloride 107 (98-107) mmol/L Carbon Dioxide 23 (22-30) mmol/L Anion Gap 11 mmol/L BUN 30 H (9-20) mg/dL Creatinine 1.99 H (0.66-1.25) mg/dL Est GFR (CKD-EPI)AfAm 36 (>60 ml/min/1.73 sqM) Est GFR (CKD-EPI)NonAf 31 (>60 ml/min/1.73 sqM) Glucose 85 (74-99) mg/dL Plasma Lactic Acid Mateo 0.8 (0.7-2.0) mmol/L Calcium 8.7 (8.4-10.2) mg/dL Total Bilirubin 1.7 H (0.2-1.3) mg/dL AST 37 (17-59) U/L ALT 20 (4-49) U/L Alkaline Phosphatase 189 H (38-126) U/L Total Protein 6.8 (6.3-8.2) g/dL Albumin 4.3 (3.5-5.0) g/dL Amylase 83 (30-110) U/L Lipase 73 (23-300) U/L C. difficile (EIA) Intrp (Negative) 01/06/22 Range/Units 12:00 WBC (3.8-10.6) k/uL RBC (4.30-5.90) m/uL Hgb (13.0-17.5) gm/dL Hct (39.0-53.0) % MCV (80.0-100.0) fL MCH (25.0-35.0) pg MCHC (31.0-37.0) g/dL RDW (11.5-15.5) % Plt Count (150-450) k/uL MPV Neutrophils % (Manual) % Band Neuts % (Manual) % Lymphocytes % (Manual) % Monocytes % (Manual) % Eosinophils % (Manual) % Basophils % (Manual) % Metamyelocytes % % Myelocytes % % Neutrophils # (Manual) (1.3-7.7) k/uL Lymphocytes # (Manual) (1.0-4.8) k/uL Monocytes # (Manual) (0-1.0) k/uL Eosinophils # (Manual) (0-0.7) k/uL Basophils # (Manual) (0-0.2) k/uL Metamyelocytes # (Man) (0) k/uL Myelocytes # (Manual) (0) k/uL Nucleated RBCs (0-0) /100 WBC Manual Slide Review Polychromasia Poikilocytosis Poikilocytosis (manual Anisocytosis Microcytosis Sodium (137-145) mmol/L Potassium (3.5-5.1) mmol/L Chloride (98-107) mmol/L Carbon Dioxide (22-30) mmol/L Anion Gap mmol/L BUN (9-20) mg/dL Creatinine (0.66-1.25) mg/dL Est GFR (CKD-EPI)AfAm (>60 ml/min/1.73 sqM) Est GFR (CKD-EPI)NonAf (>60 ml/min/1.73 sqM) Glucose (74-99) mg/dL Plasma Lactic Acid Mateo (0.7-2.0) mmol/L Calcium (8.4-10.2) mg/dL Total Bilirubin (0.2-1.3) mg/dL AST (17-59) U/L ALT (4-49) U/L Alkaline Phosphatase (38-126) U/L Total Protein (6.3-8.2) g/dL Albumin (3.5-5.0) g/dL Amylase (30-110) U/L Lipase (23-300) U/L C. difficile (EIA) Intrp Positive A (Negative) Disposition Clinical Impression: Clostridioides difficile infection Disposition: ADMITTED IP TO THIS HOSP Referrals: Barrington Goyal Jr, [Primary Care Provider] - 1-2 days Time of Disposition: 13:50
[2022-01-06 11:54] LABS: Anisocytosis Moderate; HCT 32.1 % (39.0-53.0); HGB 10.5 gm/dL (13.0-17.5); MCHC 32.7 g/dL (31.0-37.0); MCV 82.6 fL (80.0-100.0); Mean Platelet Volume 11.1; Microcytosis Slight; Platelet Count 154 k/uL (150-450); Poikilocytosis Slight; RBC 3.88 m/uL (4.30-5.90); RDW 20.4 % (11.5-15.5)
[2022-01-06 12:02] LABS: Albumin 4.3 g/dL (3.5-5.0); Calcium 8.7 mg/dL (8.4-10.2); Total Bilirubin 1.7 mg/dL (0.2-1.3); Total Protein 6.8 g/dL (6.3-8.2)
[2022-01-06 12:46] LABS: Band Neutrophils % 2 %; Basophils # (M) 0.13 k/uL (0-0.2); Eosinophils # (M) 0.06 k/uL (0-0.7); Lymphocytes # (M) 1.45 k/uL (1.0-4.8); Metamyelocytes # (M) 0.19 k/uL (0); Metamyelocytes % 3 %; Monocytes # (M) 0.38 k/uL (0-1.0); Myelocytes # (M) 0.13 k/uL (0); Myelocytes % 2 %; Neutrophils % (M) 64 %; Nucleated Red Blood Cells 1 /100 WBC (0-0); Poikilocytosis (M) Present; Polychromasia Present; Total Cells Counted 200; WBC 6.3 k/uL (3.8-10.6)
[2022-01-06] MEDS ORDERED: SODIUM CHLORIDE 0.9% 1,000 ML IV ONE (13:51)
[2022-01-06] MEDS ORDERED: HYDROmorphone 0.5 MG/0.5 ML SYRINGE IVP STA (14:58)
[2022-01-06] MEDS ORDERED: LORazepam 2 MG/ML INJ IV STA (19:54)
[2022-01-06] MEDS: VANCOMYCIN 125 MG CAPSULE PO SCH ×2 (20:11→23:11)
[2022-01-06] MEDS ORDERED: CHOLESTYRAMINE (WITH SUGAR) 4 GM PACKET PO PRN (22:15)
[2022-01-06] MEDS: traMADol 50 MG TAB PO PRN (22:49)
[2022-01-06] MEDS: carvediloL 12.5 MG TAB PO SCH (22:50)
[2022-01-07] MEDS: ONDANSETRON 4 MG/2 ML VIAL IVP PRN (08:45)
[2022-01-07] MEDS: carvediloL 12.5 MG TAB PO SCH ×2 (08:46→20:32)
[2022-01-07] MEDS: DICYCLOMINE 20 MG TAB PO SCH ×4 (08:46→21:52)
[2022-01-07] MEDS: VANCOMYCIN 125 MG CAPSULE PO SCH (08:46)
[2022-01-07] MEDS: PANTOPRAZOLE 40 MG TABLET PO SCH (08:46)
[2022-01-07] MEDS: traMADol 50 MG TAB PO PRN (08:49)
[2022-01-07] MEDS: LORazepam 0.5 MG TAB PO SCH ×3 (10:08→21:52)
--- NOTE | 2022-01-07 11:05 | P.HPIM ---
History of Present Illness H&P Date: 01/07/22 Chief Complaint: Recurrence of diarrhea Sergey is an 82-year-old white female well-known to the practice in [facility]. He had a complaint of abdominal pain nausea vomiting and diarrhea. He was admitted back in 10/18/2021 and discharged on 10/26/2021 the diagnosis of pneumonia. There is concerns about colitis and he underwent an EGD and colonoscopy for abdominal pain was placed on vancomycin and Flagyl that time for pseudomembranous colitis. He is discharged home. He is readmitted October 31 to November 03. Once again for diarrhea. He was sent home on oral vancomycin. 2021 with severe profuse diarrhea. He denies having any significant abdominal pain chest pain or shortness of breath. He has known chronic COPD. He reports severe diarrhea was uncontrollable yesterday. C. difficile test at this time was positive. Current vital signs 5 him afebrile. Heart rate is controlled. Respiratory normal. Blood pressure somewhat elevated. Pulse oximetry consistent with his COPD. Hemoglobin is 10.5. Chemistry show BUN 30 and creatinine 1.99. This is slightly above his baseline. He is now resting comfortably Review of Systems All systems: negative Past Medical History Past Medical History: Hypertension, Myocardial Infarction ([place]) Additional Past Medical History / Comment(s): Pt recently admitted to [facility] on 10/18/21 with anemia, myelofibrosis, gastritis, colitis, exacerbation COPD, acute of chronic respiratory failure, abdominal pain/enlarged spleen, CKD. Other hx: Interstitial lung disease, pulmonary fibrosis, PE in 2011-pt cannot recall laterality, past home O2 use but none now, RIANA-cannot tolerate Cpap, prostate cancer with radiation treatment, skin cancer with removals, nephrolithiasis, migraines, compression fracture low back, bilateral elbow fractures with surgery, PUD, jaundiced as a child, [place] bilaterally. "mild" [place] in january 2020.Myelofibrosis Last Myocardial Infarction Date:: January 2020 History of Any Multi-Drug Resistant Organisms: None Reported Date of last positivie culture/infection: October 26 2021 Past Surgical History: Orthopedic Surgery Additional Past Surgical History / Comment(s): Prostate biopsy, R hip hemiarthroplasty, L hand partial amp of 2 fingers, L knee ACL repair, R knee arthroscopy, bilateral total elbow replacements per pt, bilateral cataract removals, L inguinal hernia repair, cardiac caths x 2, EGD, colonoscopy, skin cancer removals. Past Anesthesia/Blood Transfusion Reactions: No Reported Reaction Date of Last Stent Placement:: January 2020. Past Psychological History: Anxiety, Depression Additional Psychological History / Comment(s): Pt resides alone, his spouse 05/2021. Pt uses a cane or walker. He is receiving home care thru [facility]. Smoking Status: Former smoker Past Alcohol Use History: None Reported Additional Past Alcohol Use History / Comment(s): Pt started smoking in 1960 and quit in 2007. Past Drug Use History: None Reported - Past Family History Brother(s) Family Medical History: Cancer Additional Family Medical History / Comment(s): ONE BROTHER HAD LUNG CA & ANOTHER HAD MELANOMA. Brother just recently last week. Mother Family Medical History: AICD/Pacemaker Father Family Medical History: No Reported History Sister(s) Family Medical History: No Reported History Medications and Allergies Home Medications Medication Instructions Recorded Confirmed Type Pantoprazole Sodium [Protonix] 40 mg PO DAILY 03/08/16 01/06/22 History Vit C/E/Zn/Coppr/Lutein/Zeaxan 1 cap PO HS 12/12/18 01/06/22 History [Preservision Areds 2 Softgel] carvediloL [Coreg*] 12.5 mg PO BID 07/16/21 01/06/22 History Cholecalciferol [Vitamin D3 (25 25 mcg PO HS 08/18/21 01/06/22 History Mcg = 1000 Iu)] Super B Complex 1 tab PO HS 08/18/21 01/06/22 History Cholestyramine (with Sugar) 4 gm PO 5XD PRN 01/06/22 01/06/22 History [Cholestyramine Packet] Dicyclomine [Bentyl] 20 mg PO QID 01/06/22 01/06/22 History Diphenoxylate HCl/Atropine 2 tab PO QID 01/06/22 01/06/22 History [Lomotil 2.5-0.025 mg Tablet] LORazepam [Ativan] 1 tab PO TID 01/07/22 01/07/22 History Allergies Allergy/AdvReac Type Severity Reaction Status Date / Time alprazolam [From Xanax] AdvReac Confusion Verified 01/06/22 11:03 Physical Exam Vitals: Vital Signs Temp Pulse Pulse Resp BP BP Pulse Ox 01/07/22 07:54 97.8 F 82 16 177/73 93 L 01/07/22 02:00 98.1 F 81 16 133/63 92 L 01/06/22 21:30 97.4 F L 78 17 190/85 94 L 01/06/22 21:23 98.4 F 82 22 160/78 98 01/06/22 17:00 97.6 F 77 20 168/81 94 L 01/06/22 13:11 97.9 F 85 17 163/74 93 L Intake and Output 01/06/22 01/07/22 01/07/22 22:59 06:59 14:59 Other: # Voids 3 # Bowel Movements 3 Weight 74.843 kg GENERAL: Thin male and in no acute distress. Looks his stated age HEAD: Atraumatic, normocephalic. EYES: Pupils equal round and reactive to light, extraocular movements intact, sclera anicteric, conjunctiva are normal. ENT:nares patent, oropharynx clear without exudates. Moist mucous membranes. NECK: Normal range of motion, supple without lymphadenopathy or JVD, no thyromegaly LUNGS: Breath sounds coarse to auscultation bilaterally and equal. No wheezes rales or rhonchi. HEART: Regular rate and rhythm without murmurs, rubs or gallops.S1S2 Normal ABDOMEN: Soft, nontender, hyperactive bowel sounds. No guarding, no rebound. No masses appreciated. EXTREMITIES: Normal range of motion, no pitting or edema. No clubbing or cyanosis. NEUROLOGICAL: Cranial nerves II through XII grossly intact. Normal speech, normal gait. PSYCH: Normal mood, normal affect. SKIN: Warm, Dry, normal turgor, no rashes or lesions noted. Results CBC & Chem 7: 01/06/22 11:42 01/06/22 11:42 Labs: Abnormal Lab Results - Last 24 Hours (Table) 01/06/22 01/06/22 01/06/22 Range/Units 11:42 11:42 12:00 RBC 3.88 L (4.30-5.90) m/uL Hgb 10.5 L (13.0-17.5) gm/dL Hct 32.1 L (39.0-53.0) % RDW 20.4 H (11.5-15.5) % Metamyelocytes # (Man) 0.19 H (0) k/uL Myelocytes # (Manual) 0.13 H (0) k/uL Nucleated RBCs 1 H (0-0) /100 WBC BUN 30 H (9-20) mg/dL Creatinine 1.99 H (0.66-1.25) mg/dL Total Bilirubin 1.7 H (0.2-1.3) mg/dL Alkaline Phosphatase 189 H (38-126) U/L C. difficile (EIA) Intrp Positive A (Negative) Thrombosis Risk Factor Assmnt - DVT/VTE Prophylaxis DVT/VTE Prophylaxis: Pharmacologic Prophylaxis ordered - Choose All That Apply Any of the Below Risk Factors Present?: Yes Each Risk Factor Represents 3 Points: Age 75 years or older Thrombosis Risk Factor Assessment Total Risk Factor Score: 3 Thrombosis Risk Factor Assessment Level: Moderate Risk Assessment and Plan (1) Clostridioides difficile infection Current Visit: Yes Status: Acute Code(s): A49.8 - OTHER BACTERIAL INFECTIONS OF UNSPECIFIED SITE SNOMED Code(s): 865444866 (2) CKD (chronic kidney disease), stage III Current Visit: No Status: Acute Code(s): N18.30 - CHRONIC KIDNEY DISEASE, STAGE 3 UNSPECIFIED SNOMED Code(s): 581910268 (3) COPD (chronic obstructive pulmonary disease) Current Visit: No Status: Acute Code(s): J44.9 - CHRONIC OBSTRUCTIVE PULMONARY DISEASE, UNSPECIFIED SNOMED Code(s): 11335631 (4) Essential (primary) hypertension Current Visit: No Status: Acute Code(s): I10 - ESSENTIAL (PRIMARY) HYPERTENSION SNOMED Code(s): 51600572 (5) H/O myocardial infarction, greater than 8 weeks Current Visit: No Status: Acute Code(s): I25.2 - OLD MYOCARDIAL INFARCTION SNOMED Code(s): 8585731 (6) IPF (idiopathic pulmonary fibrosis) Current Visit: No Status: Acute Code(s): J84.112 - IDIOPATHIC PULMONARY FIBROSIS SNOMED Code(s): 781102639 Plan: At this time we'll discontinue his vancomycin. I will order an Fidamoxicin. Being this is recurrent, will consult infectious disease. Repeat labs in a.m. He'll be reevaluated in the next 24 hours. Continue IV fluids gently. Plan probiotics Crum precautions
[2022-01-07] MEDS: SODIUM CHLORIDE 0.9% 1,000 ML IV SCH (11:30)
[2022-01-07] MEDS: ENOXAPARIN 40 MG/0.4 ML SYRINGE SQ SCH (11:56)
[2022-01-07] MEDS: LACTOBACILLUS ACIDOPH & BULGAR 1 EACH PACKET PO SCH ×2 (11:56→20:32)
[2022-01-07 12:45] LABS: Anisocytosis Moderate; HCT 28.6 % (39.0-53.0); HGB 9.7 gm/dL (13.0-17.5); Hypochromasia Slight; MCH 26.9 pg (25.0-35.0); MCHC 33.8 g/dL (31.0-37.0); MCV 79.4 fL (80.0-100.0); Mean Platelet Volume 11.6; Microcytosis Slight; Platelet Count 147 k/uL (150-450); Poikilocytosis Moderate; RDW 20.4 % (11.5-15.5)
[2022-01-07 12:47] LABS: ALT 17 U/L (4-49); AST 28 U/L (17-59); African American GFR (CKD) 40 (>60 ml/min/1.73 sqM); Albumin 3.7 g/dL (3.5-5.0); Albumin/Globulin Ratio 1.7; Alkaline Phosphatase 177 U/L (38-126); Anion Gap 10 mmol/L; Blood Urea Nitrogen 24 mg/dL (9-20); Calcium 8.4 mg/dL (8.4-10.2); Carbon Dioxide 22 mmol/L (22-30); Chloride 107 mmol/L (98-107); Globulin 2.2 g/dL; Glucose 94 mg/dL (74-99); Non-African American GFR(CKD) 35 (>60 ml/min/1.73 sqM); Potassium 3.8 mmol/L (3.5-5.1); Sodium 139 mmol/L (137-145); Total Bilirubin 1.6 mg/dL (0.2-1.3); Total Protein 5.9 g/dL (6.3-8.2)
[2022-01-07 14:56] LABS: Band Neutrophils % 5 %; Basophils # (M) 0.08 k/uL (0-0.2); Eosinophils # (M) 0.08 k/uL (0-0.7); Lymphocytes # (M) 0.94 k/uL (1.0-4.8); Metamyelocytes # (M) 0.23 k/uL (0); Metamyelocytes % 3 %; Myelocytes # (M) 0.08 k/uL (0); Myelocytes % 1 %; Neutrophils % (M) 77 %; Nucleated Red Blood Cells 4 /100 WBC (0-0); Total Cells Counted 100; WBC 7.8 k/uL (3.8-10.6)
[2022-01-07 14:57] LABS: Large Platelets Present; Tear Drop Cells Present
[2022-01-07] MEDS: FIDAXOMICIN 200 MG TABLET PO SCH ×2 (15:09→20:33)
[2022-01-07] MEDS: VIT A,C & E-LUTEIN-MINERALS 1 EACH TAB PO SCH (20:32)
[2022-01-07] MEDS: CHOLECALCIFEROL 25 MCG (1000 IU) TABLET PO SCH (20:32)
[2022-01-07] MEDS ORDERED: NON FORMULARY DRUG (Super B Complex 1 TAB) PO SCH (21:00)
[2022-01-08] MEDS: SODIUM CHLORIDE 0.9% 1,000 ML IV SCH ×2 (03:11→15:28)
[2022-01-08] MEDS: ONDANSETRON 4 MG/2 ML VIAL IVP PRN (08:00)
[2022-01-08] MEDS: ENOXAPARIN 40 MG/0.4 ML SYRINGE SQ SCH (08:00)
[2022-01-08] MEDS: DICYCLOMINE 20 MG TAB PO SCH ×4 (08:00→21:11)
[2022-01-08] MEDS: LACTOBACILLUS ACIDOPH & BULGAR 1 EACH PACKET PO SCH ×2 (08:00→21:11)
[2022-01-08] MEDS: carvediloL 12.5 MG TAB PO SCH ×2 (08:00→21:11)
[2022-01-08] MEDS: PANTOPRAZOLE 40 MG TABLET PO SCH (08:00)
[2022-01-08] MEDS: LORazepam 0.5 MG TAB PO SCH ×3 (08:00→21:11)
[2022-01-08] MEDS: FIDAXOMICIN 200 MG TABLET PO SCH ×2 (08:00→21:11)
[2022-01-08] MEDS: traMADol 50 MG TAB PO PRN (08:49)
[2022-01-08 10:49] LABS: African American GFR (CKD) 33.4 (60.0-200.0); Anion Gap 9.2 mmol/L (10.00-18.00); BUN/Creat Ratio 10.43 Ratio (12.00-20.00); Blood Urea Nitrogen 21.9 mg/dL (9.0-27.0); Calcium 8.2 mg/dL (8.7-10.3); Carbon Dioxide 20.8 mmol/L (20.0-27.5); Magnesium 1.8 mg/dL (1.5-2.4); Non-African American GFR(CKD) 28.9 (60.0-200.0); Potassium 4.1 mmol/L (3.5-5.5)
[2022-01-08 11:31] LABS: Basophils # (A) 0.07 X 10*3/uL (0.00-0.10); Eosinophils # (A) 0.07 X 10*3/uL (0.04-0.35); HGB 8.2 g/dL (13.0-17.0); Immature Grans, Automated 4.3 %; Lymphocytes # (A) 0.91 X 10*3/uL (0.90-5.00); Lymphocytes % (A) 12.7 %; MCH 27.2 pg (27.0-32.0); MCHC 32.8 g/dL (32.0-37.0); MCV 83.1 fL (80.0-97.0); Monocytes % (A) 9.8 %; NRBC Per 100 WBC 3.8 /100 WBCS (0.0-0.0); Neutrophils # (A) 5.09 X 10*3/uL (1.80-7.70); Neutrophils % (A) 71.2 %; Platelet Count 121 X 10*3/uL (140-440); RBC 3.01 X 10*6/uL (4.40-5.60); RDW 21.2 % (11.5-14.5); WBC 7.15 X 10*3/uL (4.50-10.00)
[2022-01-08 11:32] LABS: Microcytosis (M) 2+
--- NOTE | 2022-01-08 15:21 | P.PN ---
Subjective Progress Note Date: 01/08/22 Sergey is an 82-year-old white female well-known to the practice in [facility]. He had a complaint of abdominal pain nausea vomiting and diarrhea. He was admitted back in 10/18/2021 and discharged on 10/26/2021 the diagnosis of pneumonia. There is concerns about colitis and he underwent an EGD and colonoscopy for abdominal pain was placed on vancomycin and Flagyl that time for pseudomembranous colitis. He is discharged home. He is readmitted October 31 to November 03. Once again for diarrhea. He was sent home on oral vancomycin. 2021 with severe profuse diarrhea. He denies having any significant abdominal pain chest pain or shortness of breath. He has known chronic COPD. He reports severe diarrhea was uncontrollable yesterday. C. difficile test at this time was positive. Current vital signs 5 him afebrile. Heart rate is controlled. Respiratory normal. Blood pressure somewhat elevated. Pulse oximetry consistent with his COPD. Hemoglobin is 10.5. Chemistry show BUN 30 and creatinine 1.99. This is slightly above his baseline. He is now resting comfortably 01/08/2022: Patient is resting comfortably in his bed. He's had multiple episodes of stooling today. Nursing reports that they're much more solid than it had been. The patient complains of the ongoing diarrhea along with some left mid quadrant pain. He's had this pain off and on since October. He denies any chest pains pressures or significant shortness breath. He was a little hypoxic without oxygen when sleeping and staff started him on 2 L/m He remains afebrile, heart rate rest rate control, blood pressure is slightly elevated. Pulse oximetry is 95% on 2 L O2. CBC shows RBC count 7.15 and hemoglobin now 8.2, platelets are 121. Chemistry show BUN 21 creatinine of 2.1. GFR is 33.4. This is close to his baseline. He remains on IV fluids of normal saline 75 mL an hour. I discussed this case with infectious disease who seen him one day ago. Will be seen in today. He agrees with Zosyn and probiotics. Objective - Vital Signs Vital signs: Vital Signs Temp 98.2 F 01/08/22 14:00 Pulse 74 01/08/22 14:00 Resp 17 01/08/22 14:00 BP 162/63 01/08/22 14:00 Pulse Ox 95 01/08/22 14:00 FiO2 Intake & Output 01/07/22 01/08/22 01/08/22 18:59 06:59 18:59 Output Total 3 Balance -3 Output: Urine 3 Other: # Voids 5 3 # Bowel Movements 4 1 3 - Exam GENERAL: Thin male and in no acute distress. Looks his stated age NECK: Normal range of motion, supple without lymphadenopathy or JVD, no thyromegaly LUNGS: Breath sounds coarse to auscultation bilaterally and equal. No wheezes rales or rhonchi. HEART: Regular rate and rhythm without murmurs, rubs or gallops.S1S2 Normal ABDOMEN: Soft, , hyperactive bowel sounds, but improved from 1 day ago, there is some left lower and mid quadrant pain to palpation today.. No guarding, no rebound. No masses appreciated. EXTREMITIES: Normal range of motion, no pitting or edema. No clubbing or c yanosis. NEUROLOGICAL: Cranial nerves II through XII grossly intact. Normal speech, normal gait. PSYCH: Normal mood, normal affect. SKIN: Warm, Dry, normal turgor, no rashes or lesions noted. - Labs CBC & Chem 7: 01/08/22 06:12 01/08/22 06:12 Labs: Abnormal Lab Results - Last 24 Hours (Table) 01/08/22 01/08/22 Range/Units 06:12 06:12 RBC 3.01 L (4.40-5.60) X 10*6/uL Hgb 8.2 L (13.0-17.0) g/dL Hct 25.0 L (39.6-50.0) % RDW 21.2 H (11.5-14.5) % Plt Count 121 L (140-440) X 10*3/uL Plt Count Comment DECREASED A Absolute Nucleated RBC 0.27 H (0.00-0.00) X 10*3/uL Immature Gran # 0.31 H (0.00-0.04) X 10*3/uL NRBC/100 WBC Diff 3.8 H (0.0-0.0) /100 WBCS Anion Gap 9.20 L (10.00-18.00) mmol/L Creatinine 2.1 H (0.6-1.5) mg/dL Est GFR (CKD-EPI)AfAm 33.4 L (60.0-200.0) Est GFR (CKD-EPI)NonAf 28.9 L (60.0-200.0) BUN/Creatinine Ratio 10.43 L (12.00-20.00) Ratio Calcium 8.2 L (8.7-10.3) mg/dL Assessment and Plan (1) Clostridioides difficile infection Current Visit: Yes Status: Acute Code(s): A49.8 - OTHER BACTERIAL INFECTIONS OF UNSPECIFIED SITE SNOMED Code(s): 378139425 (2) CKD (chronic kidney disease), stage III Current Visit: No Status: Acute Code(s): N18.30 - CHRONIC KIDNEY DISEASE, ST AGE 4 UNSPECIFIED SNOMED Code(s): 424352853 (3) COPD (chronic obstructive pulmonary disease) Current Visit: No Status: Acute Code(s): J44.9 - CHRONIC OBSTRUCTIVE PULMONARY DISEASE, UNSPECIFIED SNOMED Code(s): 32938978 (4) Essential (primary) hypertension Current Visit: No Status: Acute Code(s): I10 - ESSENTIAL (PRIMARY) HYPERTENSION SNOMED Code(s): 56053266 (5) H/O myocardial infarction, greater than 8 weeks Current Visit: No Status: Acute Code(s): I25.2 - OLD MYOCARDIAL INFARCTION SNOMED Code(s): 0937602 (6) IPF (idiopathic pulmonary fibrosis) Current Visit: No Status: Acute Code(s): J84.112 - IDIOPATHIC PULMONARY FIBROSIS SNOMED Code(s): 065529020 Plan: Continue amoxicillin and probiotics for C. difficile colitis infection Further recommendations from infectious disease. He is a decrease in platelets and blood count, we'll discontinue the anticoagulation of Lovenox. Repeat labs in a.m. He'll be reevaluated in the next 24 hours. Continue Moosic precautions
[2022-01-08] MEDS: CHOLECALCIFEROL 25 MCG (1000 IU) TABLET PO SCH (21:11)
[2022-01-08] MEDS: VIT A,C & E-LUTEIN-MINERALS 1 EACH TAB PO SCH (21:11)
--- NOTE | 2022-01-08 23:13 | P.CONS ---
History of Present Illness - Reason for Consult Consult date: 01/07/22 C. diff Requesting physician: Ronal Hays - Chief Complaint Diarrhea x few days - History of Present Illness Patient is a 81-year-old male who was recently admitted at this facility in October 2021 patient did have significant diarrhea history of positive was negative however the patient did have a colonoscopy with evidence of pseudomembranous colitis and the patient has been treated with oral vancomycin patient mention he did not have significant improvement and seem to have a persistent problem with the diarrhea and is now presenting back to the hospital with worsening diarrhea that has been getting worse for the last day with multiple episodes of loose stools patient denies any blood or mucus in the stool has been complaining of some crampy lower abdominal pain intensity currently 5-6 out of 10 no radiation has been nauseated but no vomiting patient on presentation to the hospital was afebrile and no fever have been recorded subsequently patient did have a normal white count BUN/creatinine has been mildly elevated patient had positive stool for C. difficile patient was started on Dificid admitted to the hospital infectious disease was consulted for further management of antibiotic therapy Review of Systems Positive point has been mentioned in the HPI rest of the systems are negative Past Medical History Past Medical History: Hypertension, Myocardial Infarction (PA) Additional Past Medical History / Comment(s): Pt recently admitted to [facility] on 10/18/21 with anemia, myelofibrosis, gastritis, colitis, exacerbation COPD, acute of chronic respiratory failure, abdominal pain/enlarged spleen, CKD. Other hx: Interstitial lung disease, pulmonary fibrosis, PE in 2011-pt cannot recall laterality, past home O2 use but none now, RIANA-cannot tolerate Cpap, prostate cancer with radiation treatment, skin cancer with removals, nephrolithiasis, migraines, compression fracture low back, bilateral elbow fractures with surgery, PUD, jaundiced as a child, [place] bilaterally. "mild" PA in january 2020.Myelofibrosis Last Myocardial Infarction Date:: January 2020 History of Any Multi-Drug Resistant Organisms: None Reported Year Discovered:: October 26 2021 Past Surgical History: Orthopedic Surgery Additional Past Surgical History / Comment(s): Prostate biopsy, R hip hemiarthroplasty, L hand partial amp of 2 fingers, L knee ACL repair, R knee arthroscopy, bilateral total elbow replacements per pt, bilateral cataract removals, L inguinal hernia repair, cardiac caths x 2, EGD, colonoscopy, skin cancer removals. Past Anesthesia/Blood Transfusion Reactions: No Reported Reaction Date of Last Stent Placement:: January 2020. Past Psychological History: Anxiety, Depression Additional Psychological History / Comment(s): Pt resides alone, his spouse 05/2021. Pt uses a cane or walker. He is receiving home care thru [facility]. Smoking Status: Former smoker Past Alcohol Use History: None Reported Additional Past Alcohol Use History / Comment(s): Pt started smoking in 1960 and quit in 2007. Past Drug Use History: None Reported - Past Family History Brother(s) Family Medical History: Cancer Additional Family Medical History / Comment(s): ONE BROTHER HAD LUNG CA & ANOTHER HAD MELANOMA. Brother just recently last week. Mother Family Medical History: AICD/Pacemaker Father Family Medical History: No Reported History Sister(s) Family Medical History: No Reported History Medications and Allergies Home Medications Medication Instructions Recorded Confirmed Type Pantoprazole Sodium [Protonix] 40 mg PO DAILY 03/08/16 01/06/22 History Vit C/E/Zn/Coppr/Lutein/Zeaxan 1 cap PO HS 12/12/18 01/06/22 History [Preservision Areds 2 Softgel] carvediloL [Coreg*] 12.5 mg PO BID 07/16/21 01/06/22 History Cholecalciferol [Vitamin D3 (25 25 mcg PO HS 08/18/21 01/06/22 History Mcg = 1000 Iu)] Super B Complex 1 tab PO HS 08/18/21 01/06/22 History Cholestyramine (with Sugar) 4 gm PO 5XD PRN 01/06/22 01/06/22 History [Cholestyramine Packet] Dicyclomine [Bentyl] 20 mg PO QID 01/06/22 01/06/22 History Diphenoxylate HCl/Atropine 2 tab PO QID 01/06/22 01/06/22 History [Lomotil 2.5-0.025 mg Tablet] LORazepam [Ativan] 1 tab PO TID 01/07/22 01/07/22 History Allergies Allergy/AdvReac Type Severity Reaction Status Date / Time alprazolam [From Xanax] AdvReac Confusion Verified 01/06/22 11:03 Physical Exam Vitals: Vital Signs Temp Pulse Pulse Resp BP BP Pulse Ox 01/07/22 07:54 97.8 F 82 16 177/73 93 L 01/07/22 02:00 98.1 F 81 16 133/63 92 L 01/06/22 21:30 97.4 F L 78 17 190/85 94 L 01/06/22 21:23 98.4 F 82 22 160/78 98 01/06/22 17:00 97.6 F 77 20 168/81 94 L 01/06/22 13:11 97.9 F 85 17 163/74 93 L Intake and Output 01/06/22 01/07/22 01/07/22 22:59 06:59 14:59 Other: # Voids 3 # Bowel Movements 3 Weight 74.843 kg GENERAL DESCRIPTION: Elderly male lying in bed, no distress. No tachypnea or accessory muscle of respiration use. HEENT: Shows Pallor , no scleral icterus. Oral mucous membrane is dry. No pharyngeal erythema or thrush NECK: Trachea central, no thyromegaly. LUNGS: Unlabored breathing. Clear to auscultation anteriorly. No wheeze or crackle. HEART: S1, S2, regular rate and rhythm. No loud murmur ABDOMEN: Soft, no tenderness , guarding or rigidity, no organomegaly EXTREMITIES: No edema of feet. SKIN: No rash, no masses palpable. NEUROLOGICAL: The patient is awake, alert, oriented x3, mood and affect normal. Results CBC & Chem 7: 01/08/22 06:12 01/08/22 06:12 Labs: Abnormal Lab Results - Last 24 Hours (Table) 01/06/22 01/06/22 01/06/22 Range/Units 11:42 11:42 12:00 RBC 3.88 L (4.30-5.90) m/uL Hgb 10.5 L (13.0-17.5) gm/dL Hct 32.1 L (39.0-53.0) % RDW 20.4 H (11.5-15.5) % Metamyelocytes # (Man) 0.19 H (0) k/uL Myelocytes # (Manual) 0.13 H (0) k/uL Nucleated RBCs 1 H (0-0) /100 WBC BUN 30 H (9-20) mg/dL Creatinine 1.99 H (0.66-1.25) mg/dL Total Bilirubin 1.7 H (0.2-1.3) mg/dL Alkaline Phosphatase 189 H (38-126) U/L C. difficile (EIA) Intrp Positive A (Negative) Assessment and Plan (1) Clostridioides difficile infection Current Visit: Yes Status: Acute Code(s): A49.8 - OTHER BACTERIAL INFECTIONS OF UNSPECIFIED SITE SNOMED Code(s): 923351595 Plan: Assessment : 1patient presented to hospital with intractable diarrhea secondary to her recurrent C. difficile colitis with the last episode treated with oral vancomycin and the patient did have evidence of pseudomembranous colitis on the colonoscopy Plan: 1-patient to continue with the Dificid 200 g p.o. every 12 hours 2-patient encouraged to increase his probiotic and yogurt intake 3-avoid antimotility agent We will follow on clinical condition and cultures to further adjust medication if needed Thank you for this consultation we will follow the patient along with you
--- NOTE | 2022-01-08 23:16 | P.PN ---
Subjective Progress Note Date: 01/08/22 Principal diagnosis: C diff colitis Patient is 81-year-old male with a past medical history significant for C. difficile colitis on the basis of colonoscopy evidence of p seudomembranous colitis presented to hospital mostly diarrhea and did have a positive stool for C. difficile On today's evaluation that is 01/08/2022, the patient denies having any fever or chills, the patient is feeling slightly better patient already has slightly decreased denies any chest pain or shortness of breath or cough Objective - Vital Signs Vital signs: Vital Signs Temp 98.2 F 01/08/22 14:00 Pulse 74 01/08/22 14:00 Resp 17 01/08/22 14:00 BP 162/63 01/08/22 14:00 Pulse Ox 95 01/08/22 14:00 FiO2 Intake & Output 01/07/22 01/08/22 01/08/22 18:59 06:59 18:59 Output Total 3 Balance -3 Output: Urine 3 Other: # Voids 5 3 # Bowel Movements 4 1 3 - Exam GENERAL DESCRIPTION: Elderly male lying in bed, no distress. No tachypnea or accessory muscle of respiration use. LUNGS: Unlabored breathing. Clear to auscultation anteriorly. No wheeze or crackle. HEART: S1, S2, regular rate and rhythm. No loud murmur ABDOMEN: Soft, no tenderness , guarding or rigidity, no organomegaly EXTREMITIES: No edema of feet. - Labs CBC & Chem 7: 01/08/22 06:12 01/08/22 06:12 Labs: Abnormal Lab Results - Last 24 Hours (Table) 01/08/22 01/08/22 Range/Units 06:12 06:12 RBC 3.01 L (4.40-5.60) X 10*6/uL Hgb 8.2 L (13.0-17.0) g/dL Hct 25.0 L (39.6-50.0) % RDW 21.2 H (11.5-14.5) % Plt Count 121 L (140-440) X 10*3/uL Plt Count Comment DECREASED A Absolute Nucleated RBC 0.27 H (0.00-0.00) X 10*3/uL Immature Gran # 0.31 H (0.00-0.04) X 10*3/uL NRBC/100 WBC Diff 3.8 H (0.0-0.0) /100 WBCS Anion Gap 9.20 L (10.00-18.00) mmol/L Creatinine 2.1 H (0.6-1.5) mg/dL Est GFR (CKD-EPI)AfAm 33.4 L (60.0-200.0) Est GFR (CKD-EPI)NonAf 28.9 L (60.0-200.0) BUN/Creatinine Ratio 10.43 L (12.00-20.00) Ratio Calcium 8.2 L (8.7-10.3) mg/dL Assessment and Plan (1) Clostridioides difficile infection Current Visit: Yes Status: Acute Code(s): A49.8 - OTHER BACTERIAL INFECTIONS OF UNSPECIFIED SITE SNOMED Code(s): 405241433 Plan: 1patient presented to hospital with intractable diarrhea secondary to her recurrent C. difficile colitis with the last episode treated with oral vancomycin and the patient did have evidence of pseudomembranous colitis on the colonoscopy 2-patient seems to have shown some clinical improvment to continue with the Dificid 200 g p.o. every 12 hours care discussed in detail with family over phone Time with Patient: Less than 30
[2022-01-09] MEDS: SODIUM CHLORIDE 0.9% 1,000 ML IV SCH ×2 (04:28→08:47)
[2022-01-09] MEDS: LACTOBACILLUS ACIDOPH & BULGAR 1 EACH PACKET PO SCH ×2 (08:46→21:22)
[2022-01-09] MEDS: DICYCLOMINE 20 MG TAB PO SCH ×4 (08:46→21:22)
[2022-01-09] MEDS: PANTOPRAZOLE 40 MG TABLET PO SCH (08:46)
[2022-01-09] MEDS: carvediloL 12.5 MG TAB PO SCH ×2 (08:46→21:22)
[2022-01-09] MEDS: LORazepam 0.5 MG TAB PO SCH ×3 (08:46→21:22)
[2022-01-09] MEDS: FIDAXOMICIN 200 MG TABLET PO SCH ×2 (08:46→21:22)
[2022-01-09 11:26] LABS: African American GFR (CKD) 35.5 (60.0-200.0); Anion Gap 8.6 mmol/L (10.00-18.00); BUN/Creat Ratio 8.85 Ratio (12.00-20.00); Blood Urea Nitrogen 17.7 mg/dL (9.0-27.0); Carbon Dioxide 19.4 mmol/L (20.0-27.5); Non-African American GFR(CKD) 30.6 (60.0-200.0); Potassium 3.6 mmol/L (3.5-5.5)
[2022-01-09 11:58] LABS: HCT 22.7 % (39.6-50.0); HGB 7.2 g/dL (13.0-17.0); MCH 26.6 pg (27.0-32.0); MCHC 31.7 g/dL (32.0-37.0); MCV 83.8 fL (80.0-97.0); NRBC Per 100 WBC 3.1 /100 WBCS (0.0-0.0); Platelet Count 103 X 10*3/uL (140-440); RBC 2.71 X 10*6/uL (4.40-5.60); RDW 21.5 % (11.5-14.5); WBC 4.59 X 10*3/uL (4.50-10.00)
[2022-01-09 12:08] LABS: Basophils # (M) 0.14 X 10*3/uL (0.00-0.10); Eosinophils # (M) 0 X 10*3/uL (0.04-0.35); Lymphocytes # (M) 0.46 X 10*3/uL (0.90-5.00); Metamyelocytes % 1 % (0-0); Monocytes # (M) 0.28 X 10*3/uL (0.20-1.00); Myelocytes % 2 % (0-0); Neutrophils # (M) 3.58 X 10*3/uL (2.00-8.90); Neutrophils % (M) 78 %; Rouleaux PRESENT
--- NOTE | 2022-01-09 15:07 | XR ---
EXAMINATION TYPE: XR chest 1V portable DATE OF EXAM: 01/09/2022 COMPARISON: 10/23/2021 HISTORY: Cough TECHNIQUE: Single frontal view of the chest is obtained. FINDINGS: Diffuse emphysematous changes. Most marked involving the right upper lobe. Atherosclerotic change of the aorta. No pleural effusion or pneumothorax. No focal pneumonia. Arthropathy of the jose f ulders with diffuse osteopenia. No overt failure. Subsegmental linear changes left lung base. IMPRESSION: 1. Diffuse COPD with no definite acute. Linear subsegmental changes left lung base for which atelecta sis is favored.
[2022-01-09] MEDS: traMADol 50 MG TAB PO PRN (16:35)
[2022-01-09] MEDS: CHOLESTYRAMINE (WITH SUGAR) 4 GM PACKET PO SCH (17:00)
--- NOTE | 2022-01-09 18:57 | P.PN ---
Subjective Progress Note Date: 01/09/22 Principal diagnosis: Patient is history of myelofibrosis with C. diff positive 81-year-old male well-known to my practice history of myelofibrosis enlarged spleen COPD steroid dependent, patient is being treated for C. diff currently however he has been taking a drug called Jakafi which has a side effect of profound diarrhea as well for myelofibrosis Patient states he did not bring it with him, and has been taking it up until the time of admission. His hemoglobin has steadily declined and is currently 7.2 on admission it was 10.5 there may be some hemodilution but will type and screen and have heme oncology decide whether transfusion is necessary Objective - Vital Signs Vital signs: Vital Signs Temp 97.6 F 01/09/22 14:00 Pulse 85 01/09/22 14:00 Resp 16 01/09/22 14:00 BP 173/67 01/09/22 14:00 Pulse Ox 96 01/09/22 14:00 FiO2 Intake & Output 01/08/22 01/09/22 01/09/22 18:59 06:59 18:59 Intake Total 120 Balance 120 Intake: Oral 120 Other: # Voids 3 3 5 # Bowel Movements 3 2 4 - Exam General: [Patient awake, alert and oriented times 3. Patient in no acute distress.] HEENT: [PERRL. EOMI. No pharyngeal erythema or exudate.] Neck: [No adenopathy.] Cardiac: [Heart regular in rate and rhythm. No S3. No S4. No clicks, rubs. No murmur.] Lungs: [Clear but diminished Abdomen: [No mass. Enlarged spleen. Bowel sounds presnt and normoactive in all 4 quadrants. Extremes: [No edema no cyanosis no claudication normal pulses] : Normal male genitalia Musculoskeletal: [No joint erythema, edema or tenderness.] Skin: [No rash.] Neurologic: [No lateralizing deficits. CN II - XII grossly intact.] Lymphatic: [No adenopathy.] - Labs CBC & Chem 7: 01/09/22 06:48 01/09/22 06:48 Labs: Abnormal Lab Results - Last 24 Hours (Table) 01/09/22 01/09/22 Range/Units 06:48 06:48 RBC 2.71 L (4.40-5.60) X 10*6/uL Hgb 7.2 L (13.0-17.0) g/dL Hct 22.7 L (39.6-50.0) % MCH 26.6 L (27.0-32.0) pg MCHC 31.7 L (32.0-37.0) g/dL RDW 21.5 H (11.5-14.5) % Plt Count 103 L (140-440) X 10*3/uL Plt Count Comment DECREASED A Absolute Nucleated RBC 0.14 H (0.00-0.00) X 10*3/uL Metamyelocytes % 1 H (0-0) % Myelocytes % 2 H (0-0) % Lymphocytes # (Manual) 0.46 L (0.90-5.00) X 10*3/uL Eosinophils # (Manual) 0 L (0.04-0.35) X 10*3/uL Basophils # (Manual) 0.14 H (0.00-0.10) X 10*3/uL NRBC/100 WBC Diff 3.1 H (0.0-0.0) /100 WBCS Chloride 111 H (96-109) mmol/L Carbon Dioxide 19.4 L (20.0-27.5) mmol/L Anion Gap 8.60 L (10.00-18.00) mmol/L Creatinine 2.0 H (0.6-1.5) mg/dL Est GFR (CKD-EPI)AfAm 35.5 L (60.0-200.0) Est GFR (CKD-EPI)NonAf 30.6 L (60.0-200.0) BUN/Creatinine Ratio 8.85 L (12.00-20.00) Ratio Calcium 8.0 L (8.7-10.3) mg/dL Assessment and Plan (1) Clostridioides difficile infection Current Visit: Yes Status: Acute Code(s): A49.8 - OTHER BACTERIAL INFECTIONS OF UNSPECIFIED SITE SNOMED Code(s): 973998044 (2) Anxiety Current Visit: No Status: Acute Code(s): F41.9 - ANXIETY DISORDER, UNSPECIFIED SNOMED Code(s): 37995489 (3) CKD (chronic kidney disease), stage III Current Visit: No Status: Acute Code(s): N18.30 - CHRONIC KIDNEY DISEASE, STAGE 3 UNSPECIFIED SNOMED Code(s): 948600442 (4) COPD (chronic obstructive pulmonary disease) Current Visit: No Status: Acute Code(s): J44.9 - CHRONIC OBSTRUCTIVE PULMONARY DISEASE, UNSPECIFIED SNOMED Code(s): 41219345 Plan: Patient currently being treated for acute exacerbation COPD Resolving Positive C. diff diarrhea which patient is being treated with dificid Patient is also currently taking jakafi which causes C. diff like diarrhea This is being used for myelofibrosis Consultation with Dr. feliberto das Time with Patient: Greater than 30
[2022-01-09 21:08] LABS: Anisocytosis Moderate; Hypochromasia Slight; MCH 26.5 pg (25.0-35.0); MCHC 33.1 g/dL (31.0-37.0); MCV 79.9 fL (80.0-100.0); Mean Platelet Volume 11.9; Microcytosis Slight; Platelet Count 102 k/uL (150-450); Poikilocytosis Moderate; RBC 3.01 m/uL (4.30-5.90); RDW 20.5 % (11.5-15.5); WBC 5.1 k/uL (3.8-10.6)
[2022-01-09] MEDS: CHOLECALCIFEROL 25 MCG (1000 IU) TABLET PO SCH (21:22)
[2022-01-09] MEDS: VIT A,C & E-LUTEIN-MINERALS 1 EACH TAB PO SCH (21:22)
[2022-01-09] MEDS ORDERED: RUXOLITINIB PHOSPHATE 5 MG PO SCH (22:00)
--- NOTE | 2022-01-09 23:12 | P.PN ---
Subjective Progress Note Date: 01/09/22 Principal diagnosis: C diff colitis Patient is 81-year-old male with a past medical history significant for C. difficile colitis on the basis of colonoscopy evidence of p seudomembranous colitis presented to hospital mostly diarrhea and did have a positive stool for C. difficile On today's evaluation that is 01/09/2022, the patient remains to be afebrile, the patient is feeling slightly better patient apparently did have a 3 use stool this morning no bloody mucus in the stool still have some abdominal discomfort but no worsening no chest pain or shortness breath occasional cough Objective - Vital Signs Vital signs: Vital Signs Temp 97.9 F 01/09/22 07:38 Pulse 75 01/09/22 07:38 Resp 17 01/09/22 07:38 BP 123/54 01/09/22 07:38 Pulse Ox 97 01/09/22 07:38 FiO2 Intake & Output 01/08/22 01/09/22 01/09/22 18:59 06:59 18:59 Intake Total 120 Balance 120 Intake: Oral 120 Other: # Voids 3 3 1 # Bowel Movements 3 2 1 - Exam GENERAL DESCRIPTION: Elderly male lying in bed, no distress. No tachypnea or accessory muscle of respiration use. LUNGS: Unlabored breathing. Clear to auscultation anteriorly. No wheeze or crackle. HEART: S1, S2, regular rate and rhythm. No loud murmur ABDOMEN: Soft, no tenderness , guarding or rigidity, no organomegaly EXTREMITIES: No edema of feet. - Labs CBC & Chem 7: 01/09/22 20:39 01/09/22 06:48 Labs: Abnormal Lab Results - Last 24 Hours (Table) 01/09/22 01/09/22 Range/Units 06:48 06:48 RBC 2.71 L (4.40-5.60) X 10*6/uL Hgb 7.2 L (13.0-17.0) g/dL Hct 22.7 L (39.6-50.0) % MCH 26.6 L (27.0-32.0) pg MCHC 31.7 L (32.0-37.0) g/dL RDW 21.5 H (11.5-14.5) % Plt Count 103 L (140-440) X 10*3/uL Plt Count Comment DECREASED A Absolute Nucleated RBC 0.14 H (0.00-0.00) X 10*3/uL Metamyelocytes % 1 H (0-0) % Myelocytes % 2 H (0-0) % Lymphocytes # (Manual) 0.46 L (0.90-5.00) X 10*3/uL Eosinophils # (Manual) 0 L (0.04-0.35) X 10*3/uL Basophils # (Manual) 0.14 H (0.00-0.10) X 10*3/uL NRBC/100 WBC Diff 3.1 H (0.0-0.0) /100 WBCS Chloride 111 H (96-109) mmol/L Carbon Dioxide 19.4 L (20.0-27.5) mmol/L Anion Gap 8.60 L (10.00-18.00) mmol/L Creatinine 2.0 H (0.6-1.5) mg/dL Est GFR (CKD-EPI)AfAm 35.5 L (60.0-200.0) Est GFR (CKD-EPI)NonAf 30.6 L (60.0-200.0) BUN/Creatinine Ratio 8.85 L (12.00-20.00) Ratio Calcium 8.0 L (8.7-10.3) mg/dL Assessment and Plan (1) Clostridioides difficile infection Current Visit: Yes Status: Acute Code(s): A49.8 - OTHER BACTERIAL INFECTIONS OF UNSPECIFIED SITE SNOMED Code(s): 772460168 Plan: 1patient presented to hospital with intractable diarrhea secondary to her recurrent C. difficile colitis with the last episode treated with oral vancomycin and the patient did have evidence of pseudomembranous colitis on the colonoscopy 2-patient seems to have shown some clinical improvment to continue with the Dificid 200 g p.o. every 12 hours along with Questran and encouraged to increase his probiotic and yogurt intake Time with Patient: Less than 30
[2022-01-10] MEDS ORDERED: ASPIRIN 81 MG PO STA (01:24)
[2022-01-10] MEDS: SODIUM CHLORIDE 0.9% 1,000 ML IV SCH ×2 (06:17→17:15)
[2022-01-10] MEDS: FIDAXOMICIN 200 MG TABLET PO SCH ×2 (09:23→20:30)
[2022-01-10] MEDS: carvediloL 12.5 MG TAB PO SCH ×2 (09:23→20:30)
[2022-01-10] MEDS: LACTOBACILLUS ACIDOPH & BULGAR 1 EACH PACKET PO SCH ×2 (09:23→20:30)
[2022-01-10] MEDS: LORazepam 0.5 MG TAB PO SCH ×3 (09:23→20:31)
[2022-01-10] MEDS: CHOLESTYRAMINE (WITH SUGAR) 4 GM PACKET PO SCH ×2 (09:23→17:11)
[2022-01-10] MEDS: PANTOPRAZOLE 40 MG TABLET PO SCH (09:23)
[2022-01-10] MEDS: DICYCLOMINE 20 MG TAB PO SCH ×4 (09:23→20:30)
[2022-01-10] MEDS: Ruxolitinib Phosphate [Jakafi] 5 MG Tablet PO SCH ×2 (10:04→20:31)
--- NOTE | 2022-01-10 10:47 | P.CRDCN ---
History of Present Illness Consult date: 01/10/22 History of present illness: HISTORY OF PRESENT ILLNESS: This is a 81-year-old male with a past medical history significant for coronary artery disease with previous stenting, chronic shortness of breath, CLL with chronic anemia, and hypertension. Patient follows in the office with Dr. Apple. We have been asked to see the patient in consultation for abnormal troponins. Patient examined at the bedside. Patient states yesterday he had some dull chest pain which only lasted for a few minutes and then resolved on its own. He denies any chest pain this morning. He denies any shortness of breath. He reports abdominal pain and diarrhea. He is positive for C. diff. * EKG reveals sinus mechanism with no signs of acute ischemia * Chest xray diffuse COPD with no definite acute process. * Laboratory data: WBC 5.1. Hemoglobin 8.0. Platelet count 102. Sodium 139. Potassium 3.6. BUN 17. Creatinine 2.0. Magnesium 1.8. Troponin 0.054. 0 .077. * Current home cardiac medications include carvedilol 12.5 mg twice a day * Most recent echocardiogram obtained in October 2021 revealed ejection fraction 55-60%, mild pulmonary hypertension, moderate mitral regurgitation, [id number] tricuspid regurgitation * Cardiac catheterization history: January 2020 with stenting of the proximal LAD REVIEW OF SYSTEMS: At the time of my exam: CONSTITUTIONAL: Denies fever or chills. HEENT: Denies blurred vision, vision changes, or eye pain. Denies hemoptysis CARDIOVASCULAR: Denies chest pain. Denies orthopnea. Denies PND. Denies palpitations RESPIRATORY: Denies shortness of breath. GASTROINTESTINAL: Denies abdominal pain. Denies nausea or vomiting. HEMATOLOGIC: Denies bleeding disorders. GENITOURINARY: Denies any blood in urine. SKIN: Denies pruitis. Denies rash. PHYSICAL EXAM: VITAL SIGNS: Reviewed. GENERAL: Well-developed in no acute distress. HEENT: Head is normocephalic. Pupils are equal, round. Sclerae anicteric. Mucous membranes of the mouth are moist. Neck supple. No JVD or thyromegaly LUNGS: Respirations even and unlabored. Lungs essentially clear to auscultation bilaterally. HEART: Regular rate and rhythm. S1 and S2 heard. Systolic murmur noted ABDOMEN: Soft. Nondistended. Tenderness upon palpation. EXTREMITIES: Normal range of motion. No clubbing or cyanosis. Peripheral pulses intact. No lower extremity edema NEUROLOGIC: Awake and alert. Oriented x 3. ASSESSMENT: Abdominal pain Diarrhea, + C. diff Coronary artery disease with previous stenting CLL with chronic anemia Hypertension Chronic kidney disease Abnormal troponins, likely secondary to chronic kidney disease, no evidence of acute coronary syndrome PLAN: An acute coronary event has been ruled out No need to repeat echogram as this was performed in October 2021 Resume home dose of carvedilol Due to patient's history of coronary artery disease, add aspirin and Lipitor Patient is Jyotsna stable from a cardiac standpoint with no further inpatient recommendations We will sign off. Please reconsult if needed. Nurse practitioner note has been reviewed by physician. Signing provider agrees with the documented findings, assessment, and plan of care. Past Medical History Past Medical History: Hypertension, Myocardial Infarction (MO) Additional Past Medical History / Comment(s): Pt recently admitted to [facility] on 10/18/21 with anemia, myelofibrosis, gastritis, colitis, exacerbation COPD, acute of chronic respiratory failure, abdominal pain/enlarged spleen, CKD. Other hx: Interstitial lung disease, pulmonary fibrosis, PE in 2011-pt cannot recall laterality, past home O2 use but none now, RIANA-cannot tolerate Cpap, prostate cancer with radiation treatment, skin cancer with removals, nephrolithiasis, migraines, compression fracture low back, bilateral elbow fractures with surgery, PUD, jaundiced as a child, LIME bilaterally. "mild" MO in january 2020.Myelofibrosis Last Myocardial Infarction Date:: January 2020 History of Any Multi-Drug Resistant Organisms: None Reported Date of last positivie culture/infection: October 26 2021 Past Surgical History: Orthopedic Surgery Additional Past Surgical History / Comment(s): Prostate biopsy, R hip hemiarthroplasty, L hand partial amp of 2 fingers, L knee ACL repair, R knee arthroscopy, bilateral total elbow replacements per pt, bilateral cataract removals, L inguinal hernia repair, cardiac caths x 2, EGD, colonoscopy, skin cancer removals. Past Anesthesia/Blood Transfusion Reactions: No Reported Reaction Date of Last Stent Placement:: January 2020. Past Psychological History: Anxiety, Depression Additional Psychological History / Comment(s): Pt resides alone, his spouse 05/2021. Pt uses a cane or walker. He is receiving home care thru [facility]. Smoking Status: Former smoker Past Alcohol Use History: None Reported Additional Past Alcohol Use History / Comment(s): Pt started smoking in 1961 and quit in 2007. Past Drug Use History: None Reported - Past Family History Brother(s) Family Medical History: Cancer Additional Family Medical History / Comment(s): ONE BROTHER HAD LUNG CA & ANOTHER HAD MELANOMA. Brother just recently last week. Mother Family Medical History: AICD/Pacemaker Father Family Medical History: No Reported History Sister(s) Family Medical History: No Reported History Medications and Allergies Home Medications Medication Instructions Recorded Confirmed Type Pantoprazole Sodium [Protonix] 40 mg PO DAILY 03/08/16 01/06/22 History Vit C/E/Zn/Coppr/Lutein/Zeaxan 1 cap PO HS 12/12/18 01/06/22 History [Preservision Areds 2 Softgel] carvediloL [Coreg*] 12.5 mg PO BID 07/16/21 01/06/22 History Cholecalciferol [Vitamin D3 (25 25 mcg PO HS 08/18/21 01/06/22 History Mcg = 1000 Iu)] Super B Complex 1 tab PO HS 08/18/21 01/06/22 History Cholestyramine (with Sugar) 4 gm PO 5XD PRN 01/06/22 01/06/22 History [Cholestyramine Packet] Dicyclomine [Bentyl] 20 mg PO QID 01/06/22 01/06/22 History Diphenoxylate HCl/Atropine 2 tab PO QID 01/06/22 01/06/22 History [Lomotil 2.5-0.025 mg Tablet] LORazepam [Ativan] 1 tab PO TID 01/07/22 01/07/22 History Ruxolitinib Phosphate [Jakafi] 5 mg PO BID 01/09/22 01/09/22 History Allergies Allergy/AdvReac Type Severity Reaction Status Date / Time alprazolam [From Xanax] AdvReac Confusion Verified 01/06/22 11:03 Physical Exam Vitals: Vital Signs Temp Pulse Resp BP Pulse Ox 01/10/22 07:48 98.3 F 82 16 154/61 93 L 01/10/22 02:09 98.1 F 80 18 126/50 94 L 01/09/22 19:06 97.9 F 89 18 179/72 97 01/09/22 14:00 97.6 F 85 16 173/67 96 Intake and Output 01/09/22 01/10/22 01/10/22 22:59 06:59 14:59 Other: # Voids 5 2 1 # Bowel Movements 4 1 Results 01/09/22 20:39 01/09/22 06:48 Cardiac Enzymes 01/09/22 01/10/22 Range/Units 19:08 00:08 Troponin I 0.054 H* 0.077 H* (0.000-0.034) ng/mL CBC 01/09/22 01/09/22 Range/Units 06:48 20:39 WBC 4.59 5.1 (4.50-10.00) X 10*3/uL RBC 2.71 L 3.01 L (4.40-5.60) X 10*6/uL Hgb 7.2 L 8.0 L D (13.0-17.0) g/dL Hct 22.7 L 24.0 L (39.6-50.0) % Plt Count 103 L 102 L (140-440) X 10*3/uL Comprehensive Metabolic Panel 01/09/22 Range/Units 06:48 Sodium 139 (135-145) mmol/L Potassium 3.6 (3.5-5.5) mmol/L Chloride 111 H (96-109) mmol/L Carbon Dioxide 19.4 L (20.0-27.5) mmol/L BUN 17.7 (9.0-27.0) mg/dL Creatinine 2.0 H (0.6-1.5) mg/dL Glucose 87 (70-110) mg/dL Calcium 8.0 L (8.7-10.3) mg/dL Current Medications Generic Name Dose Route Start Last Admin Trade Name Freq PRN Reason Stop Dose Admin Aspirin 81 mg 01/11/22 09:00 Aspirin 81 Mg PO DAILY [facility] Atorvastatin Calcium 40 mg 01/10/22 21:00 Atorvastatin 40 Mg Tab PO [facility] Carvedilol 12.5 mg 01/06/22 22:30 01/10/22 09:23 Carvedilol 12.5 Mg Tab PO 12.5 mg BID [facility] Administration Cholecalciferol 25 mcg 01/07/22 21:00 01/09/22 21:22 Cholecalciferol 25 Mcg (1000 Iu) Tablet PO 25 mcg HS JOSE MANUEL Administration Cholestyramine Resin 4 gm 01/09/22 18:00 01/10/22 09:23 Cholestyramine (With Sugar) 4 Gm Packet PO 4 gm BID@1000,1800 JOSE MANUEL Administration Dicyclomine HCl 20 mg 01/07/22 09:00 01/10/22 09:23 Dicyclomine 20 Mg Tab PO 20 mg QID JOSE MANUEL Administration Fidaxomicin 200 mg 01/07/22 12:00 01/10/22 09:23 Fidaxomicin 200 Mg Tablet PO 01/17/22 12:01 200 mg BID JOSE MANUEL Administration Sodium Chloride 1,000 mls @ 75 mls/hr 01/07/22 10:15 01/10/22 06:17 Saline 0.9% IV Not Given .[id number] JOSE MANUEL Lactobacillus Acidoph/Bulgaricus 1 each 01/07/22 11:15 01/10/22 09:23 Lactobacillus Acidoph & Bulgar 1 Each Packet PO 1 each BID JOSE MANUEL Administration Lorazepam 0.5 mg 01/07/22 09:30 01/10/22 09:23 Lorazepam 0.5 Mg Tab PO 0.5 mg TID JOSE MANUEL Administration Multivitamins/Minerals 1 each 01/07/22 21:00 01/09/22 21:22 Vit A,C & N-Welwst-Hopgknmk 1 Each Tab PO 1 each HS JOSE MANUEL Administration Ruxolitinib 1 each 01/10/22 09:00 01/10/22 10:04 Phosphate [Jakafi] 5 PO Not Given Mg Tablet BID JOSE MANUEL Ondansetron HCl 4 mg 01/07/22 08:37 01/08/22 08:00 Ondansetron 4 Mg/2 Ml Vial IVP 4 mg Q6HR PRN Administration Nausea And Vomiting Pantoprazole Sodium 40 mg 01/07/22 07:30 01/10/22 09:23 Pantoprazole 40 Mg Tablet PO 40 mg [id number] JOSE MANUEL Administration Tramadol HCl 50 mg 01/06/22 22:38 01/09/22 16:35 Tramadol 50 Mg Tab PO 50 mg QID PRN Administration Pain Tramadol HCl 100 mg 01/06/22 22:45 01/08/22 08:49 Tramadol 50 Mg Tab PO 100 mg QID PRN Administration Pain Intake and Output 01/09/22 01/10/22 01/10/22 22:59 06:59 14:59 Other: # Voids 5 2 1 # Bowel Movements 4 1 01/09/22 20:39 01/09/22 06:48
[2022-01-10] MEDS: traMADol 50 MG TAB PO PRN (12:18)
[2022-01-10] MEDS: IOPAMIDOL CONTRAST (ORAL USE) VIAL PO PRN ×2 (13:27→14:34)
--- NOTE | 2022-01-10 17:06 | CT ---
EXAMINATION TYPE: CT abdomen pelvis wo con DATE OF EXAM: 01/10/2022 COMPARISON: 10/11/2021 HISTORY: 81-year-old male abd pain , c diff CT DLP: 643.3 mGycm. Automated exposure control for dose reduction was used. TECHNIQUE: Contiguous axial scanning of the abdomen and pelvis without IV contrast. Coronal and sagit micaela reconstructions performed. FINDINGS: Heart normal size without pericardial effusion. Underlying emphysematous change in the lower lungs. B ronchial wall thickening may reflect bronchitis or asthma. There is a 4 mm left basilar pulmonary nodule, axial 10 with Blayne follow-up. No pleural effusion. Mild aneurysm lower descending thoracic aorta 3.2 cm. Multiple fusiform aneurysmal dilatation of the infrarenal abdominal aorta up to 3.5 cm, referred to s agittal image 70. Aneurysm left common iliac artery up to 2.1 cm either with some calcification along the surface of so me mural thrombus versus short segment dissection, axial image 51 and coronal image 56. Mild aneurysm right common iliac artery up to 2.2 cm. There is diffuse caliber enlargement of the celiac axis up to 1.6 cm. Possibly secondary to poststeno tic aneurysmal enlargement. Consider an angiographic exam to further assess. Enlargement of a splenic vessel, possibly the splenic vein is 1.8 cm. Underlying portal venous hypert ension should BE excluded. Noncontrast appearance of the liver shows hepatomegaly up to 21.2 cm versus 18.5 cm, previously. Redemonstrated marked splenomegaly but now measuring up to 23.1 cm versus 20.5 cm, previously. There is significant abnormal finding in close evaluation is advised. Cholecystectomy clips. Noncontrast appearance of the adrenal glands and pancreas show no gross abnorm ality. Right kidney asymmetrically atrophic. Punctate 3 mm nonobstructive right renal calculus. However, the re is an 4 mm calcification along the expected course of the right UPJ. 4 mm nonobstructive calculus lower pole left kidney. Additional punctate 2 mm nonobstructive calculus of the upper pole. No dilated small bowel, free fluid, or free air. Surgical clips at the bilateral inguinal regions and behind the deep inguinal rings on both sides. There is moderate inflammatory wall thickening of the right hemicolon from the cecum up to the mid tr ansverse colon. Hazy surrounding fat stranding. Bladder is urine distended. Prostate gland enlargement measuring 5.7 cm wide. Some circumferential re ctal wall thickening also noted. Possible trace pelvic free fluid. No pelvic lymphadenopathy seen. Streak and beam hardening artifact from the patient's right hip arthroplasty limits the dilatation of pelvic structures. Bones: Advanced degenerative disc disease L2-L5 levels. Grade 1 retrolisthesis L2-L3 and L3-L4. Hyper trophic facet arthropathy throughout. IMPRESSION: 1. Moderate inflammatory wall thickening right hemicolon from the cecum to the mid transverse colon and also involving the rectum. Findings suggest infectious or inflammatory colitis including the poss ibility of C. Difficile colitis. 2. Increasing hepatosplenomegaly (liver 21.2 cm and spleen a massive 23.1 cm). Note that this degree of splenic enlargement places it at risk for splenic rupture. Appropriate further evaluation and man agement advised. 3. Multiple fusiform aneurysms infrarenal abdominal aorta up to 3.5 cm. Aneurysmal common iliac cornel fiona up to 2.2 cm. There is either calcification along the surface of some mural plaque in the left c ommon iliac artery versus a short segment dissection, similar compared to 10/11/2021. Query any previo us catheter procedure. 4. Diffuse caliber enlargement of the celiac axis up to 1.6 cm. Possibly secondary to a poststenotic aneurysmal enlargement. Consider further angiographic assessment. There also appears to be enlargeme nt of a splenic vessel, possibly the splenic vein up to 1.8 cm. Consider confirming with Doppler ultr asound. Underlying portal venous hypertension should be excluded. 5. A 4 mm calculus in the expected region of the right UPJ. Correlate for any right-sided renal coli c symptoms. No significant obstructive uropathy. 6. A 4 mm left basilar pulmonary nodule on a background of COPD. Six-month follow-up CT chest to taryn ssess and also to survey the remainder of the lungs.
[2022-01-10] MEDS: ATORVASTATIN 40 MG TAB PO SCH (20:30)
[2022-01-10] MEDS: CHOLECALCIFEROL 25 MCG (1000 IU) TABLET PO SCH (20:30)
[2022-01-10] MEDS: VIT A,C & E-LUTEIN-MINERALS 1 EACH TAB PO SCH (20:30)
--- NOTE | 2022-01-10 22:02 | P.CONS ---
History of Present Illness - Reason for Consult Consult date: 01/10/22 MDS, enlarged spleen Requesting physician: Barrington Goyal Jr - Chief Complaint N,V,D - History of Present Illness Mr Ward is a pleasant male pt of Dr. Henriquez with multiple medical problems including HTN, CAD, hyperlipidemia, Hx prostate cancer, 2019, treated with RT. He was inpt 02/02 for TX, requiring stenting. Labs on that admission showed creatinine of 1.95, with hemoglobin of 11.5, WBC 8.9 and platelets 209. The patient was subsequently found to have BENIGNO positivity. He was referred to Rheumatology. Work up 02/24/20 showed elevated kappa light chain at 77.7 mg/L as well as elevated lambda light chain at to 3.4 mg/L with a ratio 2.33, 15% monoclonal spike on immunofixation results. Referred to Hematology. Hemoglobin 11.5, with other indices essentially normal. Iron studies were also normal. In 01/03, ultrasound of the KUB had revealed enlarged spleen at 18.[address] brain without contrast in 02/02 had shown age-related changes. 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 Both light chains were again elevated in the serum, with ratio 2.11. Light chains were also elevated in the urine with ratio normal. No measurable M protein was noted in the urine or serum. He was therefore placed on observation. Hospitalized 05/06 with accidental fall and right hip fracture. He underwent right hemiarthroplasty. Hemoglobin had dropped during his hospitalization to 8.7. He was discharged on oral iron. Admitted 10/04 because of shortness of breath, after starting Brillinta. During that admission, splenomegaly was noted to be more prominent on physical exam. CBC also showed a mild left shift with small number of myelocytes and metamyelocytes. Protein electrophoresis studies and CBC however showed no change compared to before. US spleen 16.9 cm, versus 20.8 cm noted on prior KUB ultrasound in 02/02. Protein electrophoresis studies showed no progression. WBC differential and peripheral smear review showed a fairly mild left shift. US consistently showed heterogenous appearing liver, therefore it was felt that the patient had splenomegaly due to chronic liver disease. However on further follow-up he continued to have progressive enlargement of the spleen, as well as intermittent WBC elevations with intermittent left shift. Therefore at his visit on 01/11/21, he had MPD related mutations tested. This was positive for INEZ 2 V617F mutation, confirming primary myeloproliferative disorder, myelofibrosis appeared to be most likely. Pt ultimately agreed to BM Bx and asp 02/26/21. This confirmed primary myelofibrosis. He also had MDS FISH performed that was negative. Jakafi treatment was recommended. He left for [place] in the winter in early 04/05 and started the medication there. He also established with an Oncologist there. He returned end of June 2021. Found he actually was started in [place]. He had tolerated well other then a drop in Hgb, so he was started on FELICIA. At f/u appt 07/14/21 further investigation, he was on inrebic for about 3 mo, he was taken off for inability swallow 1 week prior. Apr 27 started it in [facility] and did well until recently. Pt has had similar symptoms before but not this severe. He states he had an EGD with Dr. Arceo, can't remember why, but denied a specific diagnosis or treatment after. Sore throat did improve with holding the medication. He started back on his re gimen on 07/22/21 but he had rapidly progressive fatigue to where he has difficulty in even walking to the bathroom. Over the past couple of days he has had episodes of right-sided abdominal pain with at least 1 episode of large volume diarrhea. Inrebic was held after his visit in early 08/05. Pt cont ot have c/o most consistent with progressive splenomegaly. CT AP which confirmed that his spleen has increased in size about 6cm, we discussed likely disease progression. Admitted to the hospital on 08/18/21, with anxiety, depression, decreased appetite and dehydration. He was seen by psychiatry and meds adjusted. He started Jakafi 5 mg Po BID on 09/01/21. C/O abd cramping and stool urgency, mucoid discharge. He finally had EGD and colonoscopy on 10/20/21. Some minimal chronic gastritis, as well as patchy colitis in the distal colon. Biopsy showed pseudomembranous colitis. Infection workup, including C. diff was negative. It was felt that this could be due to chronic inflammation related to his prior prostate radiation. He remained of jakafi but bowel c/o persisted. He had a hospital admission for left-sided chest discomfort in early 08/05 with workup, including stress test negative. He had a stress test in 02/03 which she states was normal. He was resumed on jakafi late October or early Nov. He cont on FELICIA. Admitted with diarrhea, c-diff positive. Review of Systems 10 point review of systems is negative except as stated in HPI Past Medical History Past Medical History: Hypertension, Myocardial Infarction (TX) Additional Past Medical History / Comment(s): Pt recently admitted to [facility] on 10/18/21 with anemia, myelofibrosis, gastritis, colitis, exacerbation COPD, acute of chronic respiratory failure, abdominal pain/enlarged spleen, CKD. Other hx: Interstitial lung disease, pulmonary fibrosis, PE in 2011-pt cannot recall laterality, past home O2 use but none now, RIANA-cannot tolerate Cpap, prostate cancer with radiation treatment, skin cancer with removals, nephrolithiasis, migraines, compression fracture low back, bilateral elbow fractures with surgery, PUD, jaundiced as a child, COMANCHE bilaterally. "mild" TX in january 2020.Myelofibrosis Last Myocardial Infarction Date:: January 2020 History of Any Multi-Drug Resistant Organisms: None Reported Year Discovered:: October 26 2021 Past Surgical History: Orthopedic Surgery Additional Past Surgical History / Comment(s): Prostate biopsy, R hip hemiarthroplasty, L hand partial amp of 2 fingers, L knee ACL repair, R knee arthroscopy, bilateral total elbow replacements per pt, bilateral cataract removals, L inguinal hernia repair, cardiac caths x 2, EGD, colonoscopy, skin cancer removals. Past Anesthesia/Blood Transfusion Reactions: No Reported Reaction Date of Last Stent Placement:: January 2020. Past Psychological History: Anxiety, Depression Additional Psychological History / Comment(s): Pt resides alone, his spouse 05/2021. Pt uses a cane or walker. He is receiving home care thru [facility]. Smoking Status: Former smoker Past Alcohol Use History: None Reported Additional Past Alcohol Use History / Comment(s): Pt started smoking in 1961 and quit in 2007. Past Drug Use History: None Reported - Past Family History Brother(s) Family Medical History: Cancer Additional Family Medical History / Comment(s): ONE BROTHER HAD LUNG CA & ANOTHER HAD MELANOMA. Brother just recently last week. Mother Family Medical History: AICD/Pacemaker Father Family Medical History: No Reported History Sister(s) Family Medical History: No Reported History Medications and Allergies Home Medications Medication Instructions Recorded Confirmed Type Pantoprazole Sodium [Protonix] 40 mg PO DAILY 03/08/16 01/06/22 History Vit C/E/Zn/Coppr/Lutein/Zeaxan 1 cap PO HS 12/12/18 01/06/22 History [Preservision Areds 2 Softgel] carvediloL [Coreg*] 12.5 mg PO BID 07/16/21 01/06/22 History Cholecalciferol [Vitamin D3 (25 25 mcg PO HS 08/18/21 01/06/22 History Mcg = 1000 Iu)] Super B Complex 1 tab PO HS 08/18/21 01/06/22 History Cholestyramine (with Sugar) 4 gm PO 5XD PRN 01/06/22 01/06/22 History [Cholestyramine Packet] Dicyclomine [Bentyl] 20 mg PO QID 01/06/22 01/06/22 History Diphenoxylate HCl/Atropine 2 tab PO QID 01/06/22 01/06/22 History [Lomotil 2.5-0.025 mg Tablet] LORazepam [Ativan] 1 tab PO TID 01/07/22 01/07/22 History Ruxolitinib Phosphate [Jakafi] 5 mg PO BID 01/09/22 01/09/22 History Allergies Allergy/AdvReac Type Severity Reaction Status Date / Time alprazolam [From Xanax] AdvReac Confusion Verified 01/06/22 11:03 Physical Exam Vitals: Vital Signs Temp Pulse Resp BP Pulse Ox 01/10/22 07:48 98.3 F 82 16 154/61 93 L 01/10/22 02:09 98.1 F 80 18 126/50 94 L 01/09/22 19:06 97.9 F 89 18 179/72 97 01/09/22 14:00 97.6 F 85 16 173/67 96 Intake and Output 01/09/22 01/10/22 01/10/22 22:59 06:59 14:59 Other: # Voids 5 2 1 # Bowel Movements 4 1 - Constitutional General appearance: average body habitus, cooperative, no acute distress - EENT Eyes: anicteric sclerae, EOMI ENT: hearing grossly normal, normal oropharynx - Neck Neck: no lymphadenopathy - Respiratory Respiratory: bilateral: CTA, diminished - Cardiovascular Rhythm: regular Heart sounds: normal: S1, S2 leg Peripheral Edema: bilateral: Trace - Gastrointestinal General gastrointestinal: no absent bowel sounds, no decreased bowel sounds, no distended, no hepatomegaly, no hyperactive bowel sounds, normal bowel sounds, no organomegaly, no rigid, no scaphoid, soft, splenomegaly (8 fingerbreadths below the costal margin but not as full as previous), no tenderness, no umbilical hernia, no ventral hernia - Integumentary Integumentary: pale - Neurologic Neurologic: CNII-XII intact - Musculoskeletal Musculoskeletal: generalized weakness, strength equal bilaterally - Psychiatric Psychiatric: A&O x's 3, appropriate affect, intact judgment & insight Results CBC & Chem 7: 01/09/22 20:39 01/09/22 06:48 Labs: Abnormal Lab Results - Last 24 Hours (Table) 01/09/22 01/09/22 01/09/22 Range/Units 06:48 06:48 19:08 RBC 2.71 L (4.40-5.60) X 10*6/uL Hgb 7.2 L (13.0-17.0) g/dL Hct 22.7 L (39.6-50.0) % MCV (80.0-100.0) fL MCH 26.6 L (27.0-32.0) pg MCHC 31.7 L (32.0-37.0) g/dL RDW 21.5 H (11.5-14.5) % Plt Count 103 L (140-440) X 10*3/uL Plt Count Comment DECREASED A Absolute Nucleated RBC 0.14 H (0.00-0.00) X 10*3/uL Metamyelocytes % 1 H (0-0) % Myelocytes % 2 H (0-0) % Lymphocytes # (Manual) 0.46 L (0.90-5.00) X 10*3/uL Eosinophils # (Manual) 0 L (0.04-0.35) X 10*3/uL Basophils # (Manual) 0.14 H (0.00-0.10) X 10*3/uL NRBC/100 WBC Diff 3.1 H (0.0-0.0) /100 WBCS Chloride 111 H (96-109) mmol/L Carbon Dioxide 19.4 L (20.0-27.5) mmol/L Anion Gap 8.60 L (10.00-18.00) mmol/L Creatinine 2.0 H (0.6-1.5) mg/dL Est GFR (CKD-EPI)AfAm 35.5 L (60.0-200.0) Est GFR (CKD-EPI)NonAf 30.6 L (60.0-200.0) BUN/Creatinine Ratio 8.85 L (12.00-20.00) Ratio Calcium 8.0 L (8.7-10.3) mg/dL Troponin I 0.054 H* (0.000-0.034) ng/mL 01/09/22 01/10/22 Range/Units 20:39 00:08 RBC 3.01 L (4.40-5.60) X 10*6/uL Hgb 8.0 L D (13.0-17.0) g/dL Hct 24.0 L (39.6-50.0) % MCV 79.9 L (80.0-100.0) fL MCH (27.0-32.0) pg MCHC (32.0-37.0) g/dL RDW 20.5 H (11.5-14.5) % Plt Count 102 L (140-440) X 10*3/uL Plt Count Comment Absolute Nucleated RBC (0.00-0.00) X 10*3/uL Metamyelocytes % (0-0) % Myelocytes % (0-0) % Lymphocytes # (Manual) (0.90-5.00) X 10*3/uL Eosinophils # (Manual) (0.04-0.35) X 10*3/uL Basophils # (Manual) (0.00-0.10) X 10*3/uL NRBC/100 WBC Diff (0.0-0.0) /100 WBCS Chloride (96-109) mmol/L Carbon Dioxide (20.0-27.5) mmol/L Anion Gap (10.00-18.00) mmol/L Creatinine (0.6-1.5) mg/dL Est GFR (CKD-EPI)AfAm (60.0-200.0) Est GFR (CKD-EPI)NonAf (60.0-200.0) BUN/Creatinine Ratio (12.00-20.00) Ratio Calcium (8.7-10.3) mg/dL Troponin I 0.077 H* (0.000-0.034) ng/mL Chest x-ray: report reviewed CT scan - abdomen: report reviewed CT scan - pelvis: report reviewed Assessment and Plan (1) Clostridioides difficile infection Current Visit: Yes Status: Acute Priority: High Code(s): A49.8 - OTHER BACTERIAL INFECTIONS OF UNSPECIFIED SITE SNOMED Code(s): 267213126 (2) MGUS (monoclonal gammopathy of unknown significance) Current Visit: No Status: Chronic Priority: Medium Code(s): D47.2 - MONOCLONAL GAMMOPATHY SNOMED Code(s): 398192374 (3) Myelofibrosis Current Visit: No Status: Chronic Priority: Medium Code(s): D75.81 - MYELOFIBROSIS SNOMED Code(s): 02578530 (4) Splenomegaly Current Visit: Yes Status: Chronic Priority: Medium Code(s): R16.1 - SPL ENOMEGALY, NOT ELSEWHERE CLASSIFIED SNOMED Code(s): 69098761 Plan: Pt splenomegaly is persistent with instances of regression when pt is able to be on Jakafi for his MF. Pt has been on Jakafi intermittently over the last few months with c/o not necessarily consistent with side effect profile of the medication. Diarrhea is a listed side effect though not common or reported as moderate or severe. Will hold for now. Pt counts do drop during instances of acute illness. CBC monitoring. Transfuse for Hgb <7 and platelets less then 10K. Pt does receive FELICIA in office. Will verify due date and order is appropriate. Acute c-diff infection, pt is being treated for the same. F/U with Dining Room Tables Set Up Attendant after recovery to discuss possible options for taking Jakafi. Unfortunately there are no other treatment options for pt. attests: I have seen and examined patient, performed H&P, developed impression and plan of care. Discussed with dictator. Agree with documentation, dictated as a scribe
[2022-01-11] MEDS: carvediloL 12.5 MG TAB PO SCH ×2 (07:36→21:36)
[2022-01-11] MEDS: LACTOBACILLUS ACIDOPH & BULGAR 1 EACH PACKET PO SCH ×2 (07:36→21:36)
[2022-01-11] MEDS: PANTOPRAZOLE 40 MG TABLET PO SCH (07:36)
[2022-01-11] MEDS: LORazepam 0.5 MG TAB PO SCH ×3 (07:36→21:36)
[2022-01-11] MEDS: ASPIRIN 81 MG PO SCH (07:36)
[2022-01-11] MEDS: DICYCLOMINE 20 MG TAB PO SCH ×4 (07:36→21:36)
[2022-01-11] MEDS: FIDAXOMICIN 200 MG TABLET PO SCH ×2 (07:37→21:41)
[2022-01-11] MEDS: CHOLESTYRAMINE (WITH SUGAR) 4 GM PACKET PO SCH ×3 (07:37→18:04)
--- NOTE | 2022-01-11 11:04 | P.PN ---
Subjective Progress Note Date: 01/10/22 Principal diagnosis: C diff colitis Patient is 81-year-old male with a past medical history significant for C. difficile colitis on the basis of colonoscopy evidence of p seudomembranous colitis presented to hospital mostly diarrhea and did have a positive stool for C. difficile On today's evaluation that is 01/10/2022 the patient is afebrile the patient did not have any bowel movements today per the nursing staff however the patient is complaining of more abdominal pain today and has been complaining of nausea but no vomiting no chest pain shortness of breath or cough Objective - Vital Signs Vital signs: Vital Signs Temp 98.3 F 01/10/22 07:48 Pulse 82 01/10/22 07:48 Resp 16 01/10/22 07:48 BP 154/61 01/10/22 07:48 Pulse Ox 93 L 01/10/22 07:48 FiO2 Intake & Output 01/09/22 01/10/22 01/10/22 18:59 06:59 18:59 Intake Total 120 Balance 120 Intake: Oral 120 Other: # Voids 5 2 1 # Bowel Movements 4 1 - Exam GENERAL DESCRIPTION: Elderly male lying in bed, no distress. No tachypnea or accessory muscle of respiration use. LUNGS: Unlabored breathing. Clear to auscultation anteriorly. No wheeze or crackle. HEART: S1, S2, regular rate and rhythm. No loud murmur ABDOMEN: Soft, no tenderness , guarding or rigidity, no organomegaly EXTREMITIES: No edema of feet. - Labs CBC & Chem 7: 01/09/22 20:39 01/09/22 06:48 Labs: Abnormal Lab Results - Last 24 Hours (Table) 01/09/22 01/09/22 01/10/22 Range/Units 19:08 20:39 00:08 RBC 3.01 L (4.30-5.90) m/uL Hgb 8.0 L D (13.0-17.5) gm/dL Hct 24.0 L (39.0-53.0) % MCV 79.9 L (80.0-100.0) fL RDW 20.5 H (11.5-15.5) % Plt Count 102 L (150-450) k/uL Troponin I 0.054 H* 0.077 H* (0.000-0.034) ng/mL Assessment and Plan (1) Clostridioides difficile infection Current Visit: Yes Status: Acute Priority: High Code(s): A49.8 - OTHER BACTERIAL INFECTIONS OF UNSPECIFIED SITE SNOMED Code(s): 203696874 Plan: 1patient presented to hospital with intractable diarrhea secondary to her recurrent C. difficile colitis with the last episode treated with oral vancomycin and the patient did have evidence of pseudomembranous colitis on the colonoscopy 2-Patient seemed having more abdominal pain we will obtain a CT of abdominal pelvis with oral contrast to make sure no evidence of any complication related to C. difficile such as toxic megacolon continue with the Dificid and monitor clinical course closely Time with Patient: Less than 30
[2022-01-11 11:11] LABS: African American GFR (CKD) 37.7 (60.0-200.0); Anion Gap 9.6 mmol/L (10.00-18.00); BUN/Creat Ratio 7.47 Ratio (12.00-20.00); Blood Urea Nitrogen 14.2 mg/dL (9.0-27.0); Carbon Dioxide 19.4 mmol/L (20.0-27.5); Non-African American GFR(CKD) 32.6 (60.0-200.0); Potassium 3.4 mmol/L (3.5-5.5)
[2022-01-11 14:04] LABS: Basophils # (M) 0.17 X 10*3/uL (0.00-0.10); Eosinophils # (M) 0 X 10*3/uL (0.04-0.35); HCT 23.2 % (39.6-50.0); HGB 7.4 g/dL (13.0-17.0); Lymphocytes # (M) 0.39 X 10*3/uL (0.90-5.00); MCH 26.6 pg (27.0-32.0); MCHC 31.9 g/dL (32.0-37.0); MCV 83.5 fL (80.0-97.0); Metamyelocytes % 3 % (0-0); Monocytes # (M) 0.39 X 10*3/uL (0.20-1.00); Myelocytes % 5 % (0-0); NRBC Per 100 WBC 1.3 /100 WBCS (0.0-0.0); Neutrophils # (M) 4.13 X 10*3/uL (2.00-8.90); Neutrophils % (M) 75 %; Platelet Count 99 X 10*3/uL (140-440); RBC 2.78 X 10*6/uL (4.40-5.60); RDW 21.8 % (11.5-14.5); Tear Drop Cells 2+
[2022-01-11] MEDS: SODIUM CHLORIDE 0.9% 1,000 ML IV SCH ×2 (14:31→21:36)
--- NOTE | 2022-01-11 15:11 | P.PN ---
Subjective Progress Note Date: 01/10/22 Patient is history of myelofibrosis with C. diff positive 01/09/2022 81-year-old male well-known to my practice history of myelofibrosis enlarged spleen COPD steroid dependent, patient is being treated for C. diff currently however he has been taking a drug called Jakafi which has a side effect of profound diarrhea as well for myelofibrosis Patient states he did not bring it with him, and has been taking it up until the time of admission. His hemoglobin has steadily declined and is currently 7.2 on admission it was 10.5 there may be some hemodilution but will type and screen and have heme oncology decide whether transfusion is necessary 01/10/22 maintained on IV fluid hydration, Questran. Reports minimal nausea, no vomiting, improving diarrhea/bedside commode. Fair diet intake. Reporting increased abdominal pain. CT of abdomen and pelvis ordered. Evaluated by oncology and cardiology with recommendations noted. Objective - Vital Signs Vital signs: Vital Signs Temp 98.7 F 01/10/22 13:54 Pulse 76 01/10/22 13:54 Resp 16 01/10/22 13:54 BP 159/61 01/10/22 13:54 Pulse Ox 95 01/10/22 13:54 FiO2 Intake & Output 01/10/22 01/10/22 01/11/22 06:59 18:59 06:59 Other: # Voids 2 1 # Bowel Movements 1 - Exam - Exam General: awake, alert and oriented times 3. no acute distress.] HEENT: [PERRL. EOMI. No pharyngeal erythema or exudate.] Neck: Supple, no JVD Cardiac: [Heart regular in rate and rhythm. No S3. No S4. No clicks, rubs. No murmur.] Lungs: [Clear but diminished Abdomen: [ Soft, nontender, no guarding, no rigidity .Enlarged spleen. Bowel sounds present. Extremes: [No edema no cyanosis no claudication normal pulses] Skin: [Warm and dry, No rash.] Neurologic: CN II - XII grossly intact. No focal deficits.] - Labs CBC & Chem 7: 01/11/22 05:48 01/11/22 05:48 Labs: Abnormal Lab Results - Last 24 Hours (Table) 01/09/22 01/09/22 01/10/22 Range/Units 19:08 20:39 00:08 RBC 3.01 L (4.30-5.90) m/uL Hgb 8.0 L D (13.0-17.5) gm/dL Hct 24.0 L (39.0-53.0) % MCV 79.9 L (80.0-100.0) fL RDW 20.5 H (11.5-15.5) % Plt Count 102 L (150-450) k/uL Troponin I 0.054 H* 0.077 H* (0.000-0.034) ng/mL Assessment and Plan Assessment: (1) Clostridioides difficile infection Current Visit: Yes Status: Acute Code(s): A49.8 - OTHER BACTERIAL INFECTIONS OF UNSPECIFIED SITE SNOMED Code(s): 541845089 (2) Anxiety Current Visit: No Status: Acute Code(s): F41.9 - ANXIETY DISORDER, UNSPECIFIED SNOMED Code(s): 72440892 (3) CKD (chronic kidney disease), stage III Current Visit: No Status: Acute Code(s): N18.30 - CHRONIC KIDNEY DISEASE, STAGE 3 UNSPECIFIED SNOMED Code(s): 861641212 (4) COPD (chronic obstructive pulmonary disease) Current Visit: No Status: Acute Code(s): J44.9 - CHRONIC OBSTRUCTIVE PULMON EMRE DISEASE, UNSPECIFIED SNOMED Code(s): 65334313 (5) myelofibrosis (6) splenomegaly, Jakafi on hold (7) elevated troponins, suspect related to CKD, acute coronary syndrome ruled out as per cardiology Plan: Continue on current medication regime ,monitoring and symptomatic treatment. CT of abdomen and pelvis ordered. Continue on Dificid, Questran. Pain management. Prognosis guarded given multiple complex medical issues. The impression and plan of care has been dictated as directed. : I performed a history and examination of this patient, discussed the same with the dictator. I agree with the dictator's note ,documented as a scribe. Any additional findings or plans will be noted.
--- NOTE | 2022-01-11 15:31 | P.PN ---
Subjective Progress Note Date: 01/11/22 Patient is history of myelofibrosis with C. diff positive 01/09/2022 81-year-old male well-known to my practice history of myelofibrosis enlarged spleen COPD steroid dependent, patient is being treated for C. diff currently however he has been taking a drug called Jakafi which has a side effect of profound diarrhea as well for myelofibrosis Patient states he did not bring it with him, and has been taking it up until the time of admission. His hemoglobin has steadily declined and is currently 7.2 on admission it was 10.5 there may be some hemodilution but will type and screen and have heme oncology decide whether transfusion is necessary 01/10/22 maintained on IV fluid hydration, Questran. Reports minimal nausea, no vomiting, improving diarrhea/bedside commode. Fair diet intake. Reporting increased abdominal pain. CT of abdomen and pelvis ordered. Evaluated by oncology and cardiology with recommendations noted. 01/11/2022 CT of abdomen and pelvis noted including wall thickening; from the cecum to the mid transverse colon involving the rectum suggestive of infectious or inflammatory colitis increasing possibility of C. difficile colitis, increasing hepatosplenomegaly liver 21.2 cm and spleen massive 23.1 cm, multifocal fusiform aneurysms infrarenal abdominal aorta up to 3.5 cm, aneurysmal iliac arteries up to 2.2 cm-either calcification versus short segment dissection of left common iliac artery compared to prior films of 10/11/2021, poststenotic aneurysm enlargement, enlargement of splenic vessel, possible underlying portal venous hypertension, right UPJ with 4 mm calculus with no significant obstructive uropathy, 4 mm left basilar pulmonary nodule on back ground of COPD, six-month follow-up CT recommended. Diarrhea continues, Questran increased. Denies chest pain, palpitations or increased shortness of breath. Abdominal discomfort unchanged, denies worsening. Objective - Vital Signs Vital signs: Vital Signs Temp 97.6 F 01/11/22 13:52 Pulse 67 01/11/22 13:52 Resp 14 01/11/22 13:52 BP 134/67 01/11/22 13:52 Pulse Ox 91 L 01/11/22 13:52 FiO2 Intake & Output 01/10/22 01/11/22 01/11/22 18:59 06:59 18:59 Other: # Voids 1 2 1 # Bowel Movements 2 1 - Exam - Exam General: awake, alert and oriented times 3. no acute distress.] HEENT: [PERRL. EOMI. No pharyngeal erythema or exudate.] Neck: Supple, no JVD Cardiac: [Heart regular in rate and rhythm. No S3. No S4. No clicks, rubs. No murmur.] Lungs: [Clear but diminished Abdomen: [ Soft, nontender, no guarding, no rigidity .Enlarged spleen. Bowel sounds present. Extremes: [No edema no cyanosis no claudication normal pulses] Skin: [Warm and dry, No rash.] Neurologic: CN II - XII grossly intact. No focal deficits.] - Labs CBC & Chem 7: 01/11/22 05:48 01/11/22 05:48 Labs: Abnormal Lab Results - Last 24 Hours (Table) 01/11/22 01/11/22 Range/Units 05:48 05:48 RBC 2.78 L (4.40-5.60) X 10*6/uL Hgb 7.4 L (13.0-17.0) g/dL Hct 23.2 L (39.6-50.0) % MCH 26.6 L (27.0-32.0) pg MCHC 31.9 L (32.0-37.0) g/dL RDW 21.8 H (11.5-14.5) % Plt Count 99 L (140-440) X 10*3/uL Plt Count Comment DECREASED A Absolute Nucleated RBC 0.07 H (0.00-0.00) X 10*3/uL Metamyelocytes % 3 H (0-0) % Myelocytes % 5 H (0-0) % Lymphocytes # (Manual) 0.39 L (0.90-5.00) X 10*3/uL Eosinophils # (Manual) 0 L (0.04-0.35) X 10*3/uL Basophils # (Manual) 0.17 H (0.00-0.10) X 10*3/uL NRBC/100 WBC Diff 1.3 H (0.0-0.0) /100 WBCS Potassium 3.4 L (3.5-5.5) mmol/L Chloride 111 H (96-109) mmol/L Carbon Dioxide 19.4 L (20.0-27.5) mmol/L Anion Gap 9.60 L (10.00-18.00) mmol/L Creatinine 1.9 H (0.6-1.5) mg/dL Est GFR (CKD-EPI)AfAm 37.7 L (60.0-200.0) Est GFR (CKD-EPI)NonAf 32.6 L (60.0-200.0) BUN/Creatinine Ratio 7.47 L (12.00-20.00) Ratio Calcium 8.0 L (8.7-10.3) mg/dL Assessment and Plan Assessment: (1) Clostridioides difficile infection Current Visit: Yes Status: Acute Code(s): A49.8 - OTHER BACTERIAL INFECTIONS OF UNSPECIFIED SITE SNOMED Code(s): 279204977 (2) Anxiety Current Visit: No Status: Acute Code(s): F41.9 - ANXIETY DISORDER, UNSPECIFIED SNOMED Code(s): 15876987 (3) CKD (chronic kidney disease), stage III Current Visit: No Status: Acute Code(s): N18.30 - CHRONIC KIDNEY DISEASE, STAGE 3 UNSPECIFIED SNOMED Code(s): 544001750 (4) COPD (chronic obstructive pulmonary disease) Current Visit: No Status: Acute Code(s): J44.9 - CHRONIC OBSTRUCTIVE PULMONARY DISEASE, UNSPECIFIED SNOMED Code(s): 37379481 (5) myelofibrosis (6) splenomegaly, Jakafi on hold. Abnormal CT of abdomen and pelvis; increasing hepatosplenomegaly liver 21.2 cm and spleen massive 23.1 cm, multifocal fusiform aneurysms infrarenal abdominal aorta up to 3.5 cm, aneurysmal iliac arteries up to 2.2 cm-either calcification versus short segment dissection of left common iliac artery. Vascular consulted, (7) elevated troponins, suspect related to CKD, acute coronary syndrome ruled out as per cardiology. (8) 4 mm left basilar pulmonary nodule, 6 month follow-up CT recommended Plan: Continue on current medication regime ,monitoring and symptomatic treatment. Vascular consulted re abn. CT of abdomen and pelvis, rec. pending. Continue on Dificid, Questran increased. Pain management. Prognosis guarded given multiple complex medical issues. The impression and plan of care has been dictated as directed. : I performed a history and examination of this patient, discussed the same with the dictator. I agree with the dictator's note ,documented as a scribe. Any additional findings or plans will be noted.
--- NOTE | 2022-01-11 17:40 | P.GSCN ---
History of Present Illness Consult date: 01/11/22 History of present illness: [id number] male with past medical history of coronary artery disease, shortness of breath, CLL and hypertension who has been admitted to the hospital for abdominal pain, diarrhea and family positive for C. diff. He underwent imaging which show multiple areas of aneurysmal disease at the abdominal aorta as well as the bilateral iliac arteries. We were consulted regarding left iliac dissection. The patient states he was not aware he had any aneurysmal disease. His brother had an aneurysm was repaired. He denies any pain in his legs with ambulation. He says occasionally has pains behind his knee however denies any cramping type pains with walking. Overall he feels relatively weak however states that it is because he is and has been in the hospital for multiple times and continues to have significant loose stool Past Medical History Past Medical History: Hypertension, Myocardial Infarction ([place]) Additional Past Medical History / Comment(s): Pt recently admitted to [facility] on 10/18/21 with anemia, myelofibrosis, gastritis, colitis, exacerbation COPD, acute of chronic respiratory failure, abdominal pain/enlarged spleen, CKD. Other hx: Interstitial lung disease, pulmonary fibrosis, PE in 2011-pt cannot recall laterality, past home O2 use but none now, [place]-cannot tolerate Cpap, prostate cancer with radiation treatment, skin cancer with removals, nephrolithiasis, migraines, compression fracture low back, bilateral elbow fractures with surgery, PUD, jaundiced as a child, [place] bilaterally. "mild" [place] in january 2020.Myelofibrosis Last Myocardial Infarction Date:: January 2020 History of Any Multi-Drug Resistant Organisms: None Reported Year Discovered:: October 26 2021 Past Surgical History: Orthopedic Surgery Additional Past Surgical History / Comment(s): Prostate biopsy, R hip hemiarthroplasty, L hand partial amp of 2 fingers, L knee ACL repair, R knee arthroscopy, bilateral total elbow replacements per pt, bilateral cataract removals, L inguinal hernia repair, cardiac caths x 2, EGD, colonoscopy, skin cancer removals. Past Anesthesia/Blood Transfusion Reactions: No Reported Reaction Date of Last Stent Placement:: January 2020. Past Psychological History: Anxiety, Depression Additional Psychological History / Comment(s): Pt resides alone, his spouse 05/2021. Pt uses a cane or walker. He is receiving home care thru [place]. Smoking Status: Former smoker Past Alcohol Use History: None Reported Additional Past Alcohol Use History / Comment(s): Pt started smoking in 1961 and quit in 2007. Past Drug Use History: None Reported - Past Family History Brother(s) Family Medical History: Cancer Additional Family Medical History / Comment(s): ONE BROTHER HAD LUNG CA & ANOTHER HAD MELANOMA. Brother just recently last week. Mother Family Medical History: AICD/Pacemaker Father Family Medical History: No Reported History Sister(s) Family Medical History: No Reported History Medications and Allergies Home Medications Medication Instructions Recorded Confirmed Type Pantoprazole Sodium [Protonix] 40 mg PO DAILY 03/08/16 01/06/22 History Vit C/E/Zn/Coppr/Lutein/Zeaxan 1 cap PO HS 12/12/18 01/06/22 History [Preservision Areds 2 Softgel] carvediloL [Coreg*] 12.5 mg PO BID 07/16/21 01/06/22 History Cholecalciferol [Vitamin D3 (25 25 mcg PO HS 08/18/21 01/06/22 History Mcg = 1000 Iu)] Super B Complex 1 tab PO HS 08/18/21 01/06/22 History Cholestyramine (with Sugar) 4 gm PO 5XD PRN 01/06/22 01/06/22 History [Cholestyramine Packet] Dicyclomine [Bentyl] 20 mg PO QID 01/06/22 01/06/22 History Diphenoxylate HCl/Atropine 2 tab PO QID 01/06/22 01/06/22 History [Lomotil 2.5-0.025 mg Tablet] LORazepam [Ativan] 1 tab PO TID 01/07/22 01/07/22 History Ruxolitinib Phosphate [Jakafi] 5 mg PO BID 01/09/22 01/09/22 History Allergies Allergy/AdvReac Type Severity Reaction Status Date / Time alprazolam [From Xanax] AdvReac Confusion Verified 01/06/22 11:03 Surgical - Exam Vital Signs Temp Pulse Resp BP Pulse Ox 97.5 F L 78 18 191/76 95 01/06/22 10:54 01/06/22 10:54 01/06/22 10:54 01/06/22 10:54 01/06/22 10:54 GENERAL: Well-developed in no acute distress, chronic ill appearance. HEENT: Head is normocephalic. Sclerae anicteric. Neck supple. No JVD or thyromegaly LUNGS: Respirations even and unlabored. Lungs essentially clear to auscultation bilaterally. HEART: Regular rate and rhythm. ABDOMEN: Soft. Nondistended. Mild diffuse Tenderness upon palpation. EXTREMITIES: Normal range of motion. No clubbing or cyanosis. Palpable femoral and popliteal pulses bilaterally. Difficult to palpate pedal pulses. Widened popliteal pulse NEUROLOGIC: Awake and alert. Oriented x 3. Results Computed tomography scan is reviewed. Noncontrast. Difficult to decipher if this is aneurysmal disease or there is an area of dissection along with this. However at this point it is stable from previous imaging back in September - Labs 01/11/22 05:48 01/11/22 05:48 Abnormal Lab Results - Last 24 Hours (Table) 01/11/22 01/11/22 Range/Units 05:48 05:48 RBC 2.78 L (4.40-5.60) X 10*6/uL Hgb 7.4 L (13.0-17.0) g/dL Hct 23.2 L (39.6-50.0) % MCH 26.6 L (27.0-32.0) pg MCHC 31.9 L (32.0-37.0) g/dL RDW 21.8 H (11.5-14.5) % Plt Count 99 L (140-440) X 10*3/uL Plt Count Comment DECREASED A Absolute Nucleated RBC 0.07 H (0.00-0.00) X 10*3/uL Metamyelocytes % 3 H (0-0) % Myelocytes % 5 H (0-0) % Lymphocytes # (Manual) 0.39 L (0.90-5.00) X 10*3/uL Eosinophils # (Manual) 0 L (0.04-0.35) X 10*3/uL Basophils # (Manual) 0.17 H (0.00-0.10) X 10*3/uL NRBC/100 WBC Diff 1.3 H (0.0-0.0) /100 WBCS Potassium 3.4 L (3.5-5.5) mmol/L Chloride 111 H (96-109) mmol/L Carbon Dioxide 19.4 L (20.0-27.5) mmol/L Anion Gap 9.60 L (10.00-18.00) mmol/L Creatinine 1.9 H (0.6-1.5) mg/dL Est GFR (CKD-EPI)AfAm 37.7 L (60.0-200.0) Est GFR (CKD-EPI)NonAf 32.6 L (60.0-200.0) BUN/Creatinine Ratio 7.47 L (12.00-20.00) Ratio Calcium 8.0 L (8.7-10.3) mg/dL Diabetes panel 01/11/22 Range/Units 05:48 Sodium 140 (135-145) mmol/L Potassium 3.4 L (3.5-5.5) mmol/L Chloride 111 H (96-109) mmol/L Carbon Dioxide 19.4 L (20.0-27.5) mmol/L BUN 14.2 (9.0-27.0) mg/dL Creatinine 1.9 H (0.6-1.5) mg/dL Glucose 88 (70-110) mg/dL Calcium 8.0 L (8.7-10.3) mg/dL Calcium panel 01/11/22 Range/Units 05:48 Calcium 8.0 L (8.7-10.3) mg/dL Pituitary panel 01/11/22 Range/Units 05:48 Sodium 140 (135-145) mmol/L Potassium 3.4 L (3.5-5.5) mmol/L Chloride 111 H (96-109) mmol/L Carbon Dioxide 19.4 L (20.0-27.5) mmol/L BUN 14.2 (9.0-27.0) mg/dL Creatinine 1.9 H (0.6-1.5) mg/dL Glucose 88 (70-110) mg/dL Calcium 8.0 L (8.7-10.3) mg/dL Adrenal panel 01/11/22 Range/Units 05:48 Sodium 140 (135-145) mmol/L Potassium 3.4 L (3.5-5.5) mmol/L Chloride 111 H (96-109) mmol/L Carbon Dioxide 19.4 L (20.0-27.5) mmol/L BUN 14.2 (9.0-27.0) mg/dL Creatinine 1.9 H (0.6-1.5) mg/dL Glucose 88 (70-110) mg/dL Calcium 8.0 L (8.7-10.3) mg/dL Assessment and Plan Assessment: Infrarenal abdominal aortic aneurysm Common iliac artery aneurysms Abnormal computed tomography scan C. diff Plan: After reviewing imaging and patient findings and do not believe there is any acute surgical intervention warranted. The computed tomography scan was noncontrasted therefore inability to fully determine cause the findings and the iliac vessels. He does have multiple areas of aneurysms and with his bilateral knee pain behind his knees, I do believe it would warrant ultrasounds to evaluate for popliteal artery aneurysms. He denies any claudication type symptoms. All of this may be done on an outpatient basis as there will be no interventions for them at this point unless he becomes having acute limb ischemia. At this point I believe there is a concern for this due to this possible dissection that appears chronic. He maintains palpable femoral and popliteal pulses. This is all discussed with the patient who seemingly understands.
[2022-01-11] MEDS: CHOLECALCIFEROL 25 MCG (1000 IU) TABLET PO SCH (21:36)
[2022-01-11] MEDS: ATORVASTATIN 40 MG TAB PO SCH (21:36)
[2022-01-11] MEDS: VIT A,C & E-LUTEIN-MINERALS 1 EACH TAB PO SCH (21:36)
[2022-01-12] MEDS: traMADol 50 MG TAB PO PRN (03:41)
[2022-01-12] MEDS: carvediloL 12.5 MG TAB PO SCH (08:14)
[2022-01-12] MEDS: ASPIRIN 81 MG PO SCH (08:14)
[2022-01-12] MEDS: PANTOPRAZOLE 40 MG TABLET PO SCH (08:14)
[2022-01-12] MEDS: DICYCLOMINE 20 MG TAB PO SCH ×2 (08:14→12:19)
[2022-01-12] MEDS: CHOLESTYRAMINE (WITH SUGAR) 4 GM PACKET PO SCH ×2 (08:14→16:06)
[2022-01-12] MEDS: LORazepam 0.5 MG TAB PO SCH ×2 (08:14→16:06)
[2022-01-12] MEDS: LACTOBACILLUS ACIDOPH & BULGAR 1 EACH PACKET PO SCH (08:14)
[2022-01-12] MEDS: FIDAXOMICIN 200 MG TABLET PO SCH (08:15)
[2022-01-12 10:43] LABS: Anisocytosis Moderate; HGB 7.2 gm/dL (13.0-17.5); Hypochromasia Slight; MCH 27.9 pg (25.0-35.0); MCHC 34.5 g/dL (31.0-37.0); MCV 80.9 fL (80.0-100.0); Mean Platelet Volume 13.9; Microcytosis Slight; Poikilocytosis Moderate; RBC 2.59 m/uL (4.30-5.90); RDW 20.3 % (11.5-15.5); WBC 4.5 k/uL (3.8-10.6)
[2022-01-12 12:52] LABS: Platelet Count 88 k/uL (150-450)
[2022-01-12 12:59] LABS: Band Neutrophils % 2 %; Basophils # (M) 0.05 k/uL (0-0.2); Eosinophils # (M) 0.09 k/uL (0-0.7); Lymphocytes # (M) 0.54 k/uL (1.0-4.8); Metamyelocytes # (M) 0.14 k/uL (0); Metamyelocytes % 3 %; Monocytes # (M) 0.23 k/uL (0-1.0); Myelocytes # (M) 0.09 k/uL (0); Myelocytes % 2 %; Neutrophils % (M) 76 %; Nucleated Red Blood Cells 0 /100 WBC (0-0); Total Cells Counted 200
[2022-01-12 13:00] LABS: Large Platelets Present; Polychromasia Present; Tear Drop Cells Present
--- NOTE | 2022-01-12 14:02 | P.DS ---
Providers Date of admission: 01/06/22 13:52 Expected date of discharge: 01/12/22 Attending physician: Ronal Hays Consults: 01/07/22 11:07 Consult Physician Routine Consulting Provider: Sriram Zhang Consult Reason/Comments: recurrent C Diff Do you want consulting provider notified?: Yes 01/09/22 13:36 Consult Physician Routine Consulting Provider: Vega Henriquez Consult Reason/Comments: myelodysplastic, enlarged spleen, low plt Do you want consulting provider notified?: Yes 01/11/22 15:16 Consult Physician Stat Consulting Provider: Eri Doran Consult Reason/Comments: abn. CT incl .possible left common iliac artery s hort segment dissection Do you want consulting provider notified?: Yes Primary care physician: Barrington Heywood Hospital Course: Final Diagnoses: (1) Clostridioides difficile infection Current Visit: Yes Status: Acute Code(s): A49.8 - OTHER BACTERIAL INFECTIONS OF UNSPECIFIED SITE SNOMED Code(s): 253062359 (2) Anxiety Current Visit: No Status: Acute Code(s): F41.9 - ANXIETY DISORDER, UNSPECIFIED SNOMED Code(s): 17561647 (3) CKD (chronic kidney disease), stage III Current Visit: No Status: Acute Code(s): N18.30 - CHRONIC KIDNEY DISEASE, STAGE 3 UNSPECIFIED SNOMED Code(s): 160819213 (4) COPD (chronic obstructive pulmonary disease) Current Visit: No Status: Acute Code(s): J44.9 - CHRONIC OBSTRUCTIVE PULMONARY DISEASE, UNSPECIFIED SNOMED Code(s): 02325884 (5) myelofibrosis (6) splenomegaly, Jakafi on hold. Abnormal CT of abdomen and pelvis; increasing hepatosplenomegaly liver 21.2 cm and spleen massive 23.1 cm, multifocal fusiform aneurysms infrarenal abdominal aorta up to 3.5 cm, aneurysmal iliac arteries up to 2.2 cm-either calcification versus short segment dissection of left common iliac artery. Vascular consulted, recommending further workup outpatient. (7) elevated troponins, suspect related to CKD, acute coronary syndrome ruled out as per cardiology. (8) 4 mm left basilar pulmonary nodule, 6 month follow-up CT recommended (9) CAD Hospital course: Patient is history of myelofibrosis with C. diff positive 01/09/2022 81-year-old male well-known to my practice history of myelofibrosis enlarged spleen COPD steroid dependent, patient is being treated for C. diff currently however he has been taking a drug called Jakafi which has a side effect of profound diarrhea as well for myelofibrosis Patient states he did not bring it with him, and has been taking it up until the time of admission. His hemoglobin has steadily declined and is currently 7.2 on admission it was 10.5 there may be some hemodilution but will type and screen and have heme oncology decide whether transfusion is necessary 01/10/22 maintained on IV fluid hydration, Questran. Reports minimal nausea, no vomiting, improving diarrhea/bedside commode. Fair diet intake. Reporting increased abdominal pain. CT of abdomen and pelvis ordered. Evaluated by oncology and cardiology with recommendations noted. 01/11/2022 CT of abdomen and pelvis noted including wall thickening; from the cecum to the mid transverse colon involving the rectum suggestive of infectious or inflammatory colitis increasing possibility of C. difficile colitis, increasing hepatosplenomegaly liver 21.2 cm and spleen massive 23.1 cm, multifocal fusiform aneurysms infrarenal abdominal aorta up to 3.5 cm, aneurysmal iliac arteries up to 2.2 cm-either calcification versus short segment dissection of left common iliac artery compared to prior films of 10/11/2021, poststenotic aneurysm enlargement, enlargement of splenic vessel, possible underlying portal venous hypertension, right UPJ with 4 mm calculus with no significant obstructive uropathy, 4 mm left basilar pulmonary nodule on background of COPD, six-month follow-up CT recommended. Diarrhea continues, Questran increased. Denies chest pain, palpitations or increased shortness of breath. Abdominal discomfort unchanged, denies worsening. Significant clinical improvement. Evaluated by vascular surgery, CT reviewed and reported as stable; recommending no acute surgical intervention at this time, recommending further outpatient studies-please refer to Vascular consult note. Patient will be discharged to subacute rehab today in a stable condition with guarded prognosis pending final DC recommendations and clearance per ID and oncology.Vilma urbano on hold. Cleared by cardiology for discharge. The impression and plan of care has been dictated as directed. : I performed a history and examination of this patient, discussed the same with the dictator. I agree with the dictator's note ,documented as a scribe. Any additional findings or plans will be noted. Patient Condition at Discharge: Stable Plan - Discharge Summary Discharge Rx Participant: Yes New Discharge Prescriptions: New Lactobacillus Acidoph & Bulgar [Lactinex] 1 each PO BID #60 packet Atorvastatin [Lipitor] 40 mg PO HS #30 tab traMADol HCl [Ultram] 50 mg PO QID PRN #12 tab PRN Reason: Pain Aspirin 81 mg PO DAILY tab Continue Pantoprazole Sodium [Protonix] 40 mg PO DAILY Vit C/E/Zn/Coppr/Lutein/Zeaxan [Preservision Areds 2 Softgel] 1 cap PO HS Super B Complex 1 tab PO HS Dicyclomine [Bentyl] 20 mg PO QID LORazepam [Ativan] 1 tab PO TID #9 tab carvediloL [Coreg*] 12.5 mg PO BID Cholecalciferol [Vitamin D3 (25 Mcg = 1000 Iu)] 25 mcg PO HS Changed Cholestyramine (with Sugar) [Cholestyramine Packet] 4 gm PO TID #0 Discontinued Diphenoxylate HCl/Atropine [Lomotil 2.5-0.025 mg Tablet] 2 tab PO QID Ruxolitinib Phosphate [Jakafi] 5 mg PO BID Discharge Medication List Pantoprazole Sodium [Protonix] 40 mg PO DAILY 03/08/16 [History] Vit C/E/Zn/Coppr/Lutein/Zeaxan [Preservision Areds 2 Softgel] 1 cap PO HS 12/12/18 [History] carvediloL [Coreg*] 12.5 mg PO BID 07/16/21 [History] Cholecalciferol [Vitamin D3 (25 Mcg = 1000 Iu)] 25 mcg PO HS 08/18/21 [History] Super B Complex 1 tab PO HS 08/18/21 [History] Dicyclomine [Bentyl] 20 mg PO QID 01/06/22 [History] Aspirin 81 mg PO DAILY tab 01/12/22 [Rx] Atorvastatin [Lipitor] 40 mg PO HS #30 tab 01/12/22 [Rx] Cholestyramine (with Sugar) [Cholestyramine Packet] 4 gm PO TID #0 01/12/22 [Rx] LORazepam [Ativan] 1 tab PO TID #9 tab 01/12/22 [Rx] Lactobacillus Acidoph & Bulgar [Lactinex] 1 each PO BID #60 packet 01/12/22 [Rx] traMADol HCl [Ultram] 50 mg PO QID PRN #12 tab 01/12/22 [Rx] Follow up Appointment(s)/Referral(s): Vega Henriquez MD [STAFF PHYSICIAN] - 01/13/22 1:00 pm (This is for injection) Barrington Goyal Jr, DO [Primary Care Provider] - 3 Days Eri Doran DO [STAFF PHYSICIAN] - 1 Week Activity/Diet/Wound Care/Special Instructions: DAVID: Willard currently on hold as per oncology CBC,BMP in 3 days
--- NOTE | 2022-01-12 14:04 | P.PN ---
Subjective Progress Note Date: 01/12/22 Seen and examined is a follow-up for consultation regarding left iliac dissection. This is been reviewed and appears to be all chronic. Patient denies any pain in his lower extremities. Being treated for C. diff. No acute changes through the night. Denies any shortness of breath or chest pain. Objective - Vital Signs Vital signs: Vital Signs Temp 98.2 F 01/12/22 07:58 Pulse 74 01/12/22 07:58 Resp 14 01/12/22 07:58 BP 154/65 01/12/22 07:58 Pulse Ox 92 L 01/12/22 08:44 FiO2 Intake & Output 01/11/22 01/12/22 01/12/22 18:59 06:59 18:59 Intake Total 600 Output Total 125 Balance 600 -125 Intake: Oral 600 Output: Urine 125 Other: # Voids 3 2 # Bowel Movements 2 2 - Exam GENERAL: Well-developed in no acute distress, chronic ill appearance. HEENT: Head is normocephalic. Sclerae anicteric. Neck supple. No JVD or thyromegaly LUNGS: Respirations even and unlabored. Lungs essentially clear to auscultation bilaterally. HEART: Regular rate and rhythm. ABDOMEN: Soft. Nondistended. Mild diffuse Tenderness upon palpation. EXTREMITIES: Normal range of motion. No clubbing or cyanosis. Palpable femoral and popliteal pulses bilaterally. Difficult to palpate pedal pulses. NEUROLOGIC: Awake and alert. Oriented x 3. - Labs CBC & Chem 7: 01/12/22 10:31 01/11/22 05:48 Labs: Abnormal Lab Results - Last 24 Hours (Table) 01/11/22 01/11/22 Range/Units 05:48 05:48 RBC 2.78 L (4.40-5.60) X 10*6/uL Hgb 7.4 L (13.0-17.0) g/dL Hct 23.2 L (39.6-50.0) % MCH 26.6 L (27.0-32.0) pg MCHC 31.9 L (32.0-37.0) g/dL RDW 21.8 H (11.5-14.5) % Plt Count 99 L (140-440) X 10*3/uL Plt Count Comment DECREASED A Absolute Nucleated RBC 0.07 H (0.00-0.00) X 10*3/uL Metamyelocytes % 3 H (0-0) % Myelocytes % 5 H (0-0) % Lymphocytes # (Manual) 0.39 L (0.90-5.00) X 10*3/uL Eosinophils # (Manual) 0 L (0.04-0.35) X 10*3/uL Basophils # (Manual) 0.17 H (0.00-0.10) X 10*3/uL NRBC/100 WBC Diff 1.3 H (0.0-0.0) /100 WBCS Potassium 3.4 L (3.5-5.5) mmol/L Chloride 111 H (96-109) mmol/L Carbon Dioxide 19.4 L (20.0-27.5) mmol/L Anion Gap 9.60 L (10.00-18.00) mmol/L Creatinine 1.9 H (0.6-1.5) mg/dL Est GFR (CKD-EPI)AfAm 37.7 L (60.0-200.0) Est GFR (CKD-EPI)NonAf 32.6 L (60.0-200.0) BUN/Creatinine Ratio 7.47 L (12.00-20.00) Ratio Calcium 8.0 L (8.7-10.3) mg/dL Assessment and Plan Assessment: Infrarenal abdominal aortic aneurysm Common iliac artery aneurysms Abnormal computed tomography scan C. diff Plan: Plans for acute surgical intervention during this hospitalization. Recommend patient follow up outpatient for arterial ultrasound to evaluate popliteal artery aneurysm. This was discussed with the patient and he seemingly understands and agrees. Thank you for this consultation, we will sign off at this time. The impression and plan of care has been dictated as directed. I performed a history and examination of this patient, discussed the same with the dictator. I agree with the dictator's note ,documented as a scribe. Any additional findings or plans will be noted.
[2022-01-12 14:10] VITALS: BP 144/64; PULSE 67; RESP 18; TEMP 97.9
[2022-01-12 14:15] VITALS: BMI 22.4
[2022-01-13] MEDS ORDERED: DARBEPOETIN ALFA 60 MCG/0.3 ML SYRINGE SQ SCH (09:00)
== END 2022-01-12 16:53 | DRG 372 ==
LOC: EC 10:53 → 4SSUR 13:52
PROVIDERS: ADMIT Family Medicine; ATTEND Family Medicine
DX: A04.71 Enterocolitis due to Clostridium difficile, recurrent (principal); C91.10 Chronic lymphocytic leukemia of B-cell type not having achieved remission; J96.11 Chronic respiratory failure with hypoxia; K76.6 Portal hypertension; D47.1 Chronic myeloproliferative disease; I72.3 Aneurysm of iliac artery; J44.9 Chronic obstructive pulmonary disease, unspecified; I12.9 Hypertensive chronic kidney disease with stage 1 through stage 4 chronic kidney disease, or unspecified chronic kidney disease; N18.30 Chronic kidney disease, stage 3 unspecified; I71.4 Abdominal aortic aneurysm, without rupture; J84.112 Idiopathic pulmonary fibrosis; D63.1 Anemia in chronic kidney disease; R16.2 Hepatomegaly with splenomegaly, not elsewhere classified; E86.0 Dehydration; H91.93 Unspecified hearing loss, bilateral; F41.9 Anxiety disorder, unspecified; R94.8 Abnormal results of function studies of other organs and systems; R77.8 Other specified abnormalities of plasma proteins; R91.1 Solitary pulmonary nodule; I25.10 Atherosclerotic heart disease of native coronary artery without angina pectoris; E78.5 Hyperlipidemia, unspecified; D63.0 Anemia in neoplastic disease; D47.2 Monoclonal gammopathy; G47.33 Obstructive sleep apnea (adult) (pediatric); Z79.51 Long term (current) use of inhaled steroids; Z88.8 Allergy status to other drugs, medicaments and biological substances; I25.2 Old myocardial infarction; Z79.899 Other long term (current) drug therapy; Z87.891 Personal history of nicotine dependence; Z79.52 Long term (current) use of systemic steroids; Z95.5 Presence of coronary angioplasty implant and graft; Z85.828 Personal history of other malignant neoplasm of skin; Z86.711 Personal history of pulmonary embolism; Z85.46 Personal history of malignant neoplasm of prostate; Z92.3 Personal history of irradiation
CPT/HCPCS: 36415; 71045; 74176; 80048; 80053; 82150; 82272; 83605; 83690; 83735; 84484; 85025; 85027; 86850; 86900; 86901; 87324; 87635; 93005; 94760; 96361; 96374; 96375; 99285

== ENCOUNTER 2022-02-05 14:08 | Emergency (ER) | payer MEDICARE ==
[2022-02-05 14:16] VITALS: BP 190/82; PULSE 80; RESP 16; TEMP 97
[2022-02-05] MEDS ORDERED: SODIUM CHLORIDE 0.9% 1,000 ML IV STA (14:23)
--- NOTE | 2022-02-05 14:29 | ED ---
General Adult HPI - General Chief complaint: Nausea/Vomiting/Diarrhea Stated complaint: diarrhea Time Seen by Provider: 02/05/22 14:10 Source: patient, EMS, RN notes reviewed, old records reviewed Mode of arrival: EMS Limitations: no limitations - History of Present Illness Initial comments: this is a 81-year-old male with a past medical history significant for C. diff one month ago. Patient just [facility] a few days ago he went home today he was having severe abdominal cramping and then started having masseter muscle diarrhea per the patient. Patient states since then the pain is been much better and has come and gone a couple of times so. Patient denies any fever chills per patient denies any nausea or vomiting. Patient denies any chest pain difficulty breathing shortness of breath per patient denies any back pain. Patient states currently there is no abdominal pain but he states this is how it goes in the past 80s pain-free and then the pain comes again - Related Data Home Medications Medication Instructions Recorded Confirmed Pantoprazole Sodium [Protonix] 40 mg PO DAILY 03/08/16 01/13/22 Vit C/E/Zn/Coppr/Lutein/Zeaxan 1 cap PO HS 12/12/18 01/13/22 [Preservision Areds 2 Softgel] carvediloL [Coreg*] 12.5 mg PO BID 07/16/21 01/13/22 Cholecalciferol [Vitamin D3 (25 25 mcg PO HS 08/18/21 01/13/22 Mcg = 1000 Iu)] Super B Complex 1 tab PO HS 08/18/21 01/13/22 Dicyclomine [Bentyl] 20 mg PO QID 01/06/22 01/13/22 Previous Rx's Medication Instructions Recorded Aspirin 81 mg PO DAILY tab 01/12/22 Atorvastatin [Lipitor] 40 mg PO HS #30 tab 01/12/22 Cholestyramine (with Sugar) 4 gm PO TID #0 01/12/22 [Cholestyramine Packet] Epoetin Dennis [Procrit] 20,000 unit SQ Q7D #4 each 01/12/22 Fidaxomicin [Dificid] 200 mg PO BID 10 Days #40 tab 01/12/22 LORazepam [Ativan] 1 tab PO TID #9 tab 01/12/22 Lactobacillus Acidoph & Bulgar 1 each PO BID #60 packet 01/12/22 [Lactinex] traMADol HCl [Ultram] 50 mg PO QID PRN #12 tab 01/12/22 Allergies Allergy/AdvReac Type Severity Reaction Status Date / Time alprazolam [From Xanax] AdvReac Confusion Verified 01/13/22 14:11 Review of Systems ROS Statement: Those systems with pertinent positive or pertinent negative responses have been documented in the HPI. ROS Other: All systems not noted in ROS Statement are negative. Past Medical History Past Medical History: Hypertension, Myocardial Infarction ([place]) Additional Past Medical History / Comment(s): Pt recently admitted to [facility] on 10/18/21 with anemia, myelofibrosis, gastritis, colitis, exacerbation COPD, acute of chronic respiratory failure, abdominal pain/enlarged spleen, CKD. Other hx: Interstitial lung disease, pulmonary fibrosis, PE in 2011-pt cannot recall laterality, past home O2 use but none now, [place]-cannot tolerate Cpap, prostate cancer with radiation treatment, skin cancer with removals, nephrolithiasis, migraines, compression fracture low back, bilateral elbow fractures with surgery, PUD, jaundiced as a child, [place] bilaterally. "mild" [place] in january 2020.Myelofibrosis Last Myocardial Infarction Date:: January 2020 History of Any Multi-Drug Resistant Organisms: None Reported Date of last positivie culture/infection: October 26 2021 Past Surgical History: Orthopedic Surgery Additional Past Surgical History / Comment(s): Prostate biopsy, R hip hemiarthroplasty, L hand partial amp of 2 fingers, L knee ACL repair, R knee arthroscopy, bilateral total elbow replacements per pt, bilateral cataract remov als, L inguinal hernia repair, cardiac caths x 2, EGD, colonoscopy, skin cancer removals. Past Anesthesia/Blood Transfusion Reactions: No Reported Reaction Date of Last Stent Placement:: January 2020. Past Psychological History: Anxiety, Depression Smoking Status: Former smoker - Past Family History Brother(s) Family Medical History: Cancer Additional Family Medical History / Comment(s): ONE BROTHER HAD LUNG CA & AN OTHER HAD MELANOMA. Brother just recently last week. Mother Family Medical History: AICD/Pacemaker Father Family Medical History: No Reported History Sister(s) Family Medical History: No Reported History General Exam - General Exam Comments Initial Comments: GENERAL: Patient is well-developed and well-nourished. Patient is nontoxic and well- hydrated and is in mild distress. ENT: Neck is soft and supple. No significant lymphadenopathy is noted. Oropharynx is clear. Moist mucous membranes. Neck has full range of motion without eliciting any pain. EYES: The sclera were anicteric and conjunctiva were pink and moist. Extraocular movements were intact and pupils were equal round and reactive to light. Eyelids were unremarkable. PULMONARY: Unlabored respirations. Good breath sounds bilaterally. No audible rales rhon chi or wheezing was noted. CARDIOVASCULAR: There is a regular rate and rhythm without any murmurs gallops or rubs. ABDOMEN: Left-sided abdominal pain no rebound SKIN: Skin is clear with no lesions or rashes and otherwise unremarkable. NEUROLOGIC: Patient is alert and oriented x3. Cranial nerves II through XII are grossly intact. Motor and sensory are also intact. Normal speech, volume and content. Symmetrical smile. MUSCULOSKELETAL: Normal extremities with adequate strength and full range of motion. LYMPHATICS: No significant lymphadenopathy is noted PSYCHIATRIC: Normal psychiatric evaluation. Limitations: no limitations Course Vital Signs 02/05/22 14:14 Temperature 97 F L Pulse Rate 80 Respiratory 16 Rate Blood Pressure 190/82 O2 Sat by Pulse 100 Oximetry Medical Decision Making - Medical Decision Making I spoke with Dr. Jyotsna Goyal he wanted the patient discharged home and he will follow-up with the patient tomorrow. - Lab Data Result diagrams: 02/05/22 14:39 02/05/22 14:39 Lab Results 02/05/22 02/05/22 02/05/22 Range/Units 14:39 14:39 14:39 WBC 6.9 (3.8-10.6) k/uL RBC 3.90 L (4.30-5.90) m/uL Hgb 10.5 L (13.0-17.5) gm/dL Hct 31.2 L (39.0-53.0) % MCV 80.0 (80.0-100.0) fL MCH 27.0 (25.0-35.0) pg MCHC 33.7 (31.0-37.0) g/dL RDW 20.3 H (11.5-15.5) % Plt Count 148 L (150-450) k/uL MPV 11.8 Neutrophils % 71 % Lymphocytes % 17 % Monocytes % 6 % Eosinophils % 1 % Basophils % 2 % Neutrophils # 4.9 (1.3-7.7) k/uL Lymphocytes # 1.1 (1.0-4.8) k/uL Monocytes # 0.4 (0-1.0) k/uL Eosinophils # 0.1 (0-0.7) k/uL Basophils # 0.1 (0-0.2) k/uL Manual Slide Review Performed Polychromasia Present Hypochromasia Slight Poikilocytosis Moderate Anisocytosis Moderate Microcytosis Slight Sodium 141 (137-145) mmol/L Potassium 3.8 (3.5-5.1) mmol/L Chloride 109 H (98-107) mmol/L Carbon Dioxide 22 (22-30) mmol/L Anion Gap 10 mmol/L BUN 19 (9-20) mg/dL Creatinine 1.70 H (0.66-1.25) mg/dL Est GFR (CKD-EPI)AfAm 43 (>60 ml/min/1.73 sqM) Est GFR (CKD-EPI)NonAf 37 (>60 ml/min/1.73 sqM) Glucose 92 (74-99) mg/dL Plasma Lactic Acid Mateo 0.6 L (0.7-2.0) mmol/L Calcium 8.3 L (8.4-10.2) mg/dL Total Bilirubin 1.6 H (0.2-1.3) mg/dL AST 29 (17-59) U/L ALT 23 (4-49) U/L Alkaline Phosphatase 177 H (38-126) U/L Total Protein 6.0 L (6.3-8.2) g/dL Albumin 3.7 (3.5-5.0) g/dL Amylase 50 (30-110) U/L Lipase 38 (23-300) U/L Disposition Clinical Impression: Diarrhea Disposition: HOME SELF-CARE Condition: Good Instructions (If sedation given, give patient instructions): Acute Diarrhea (ED) Is patient prescribed a controlled substance at d/c from ED?: No Referrals: Barrington Goyal Jr, DO [Primary Care Provider] - 1-2 days Time of Disposition: 16:29
[2022-02-05 14:44] LABS: Anisocytosis Moderate; Basophils # (A) 0.1 k/uL (0-0.2); Basophils % (A) 2 %; Eosinophils # (A) 0.1 k/uL (0-0.7); Eosinophils % (A) 1 %; HCT 31.2 % (39.0-53.0); HGB 10.5 gm/dL (13.0-17.5); Hypochromasia Slight; Lymphocytes # (A) 1.1 k/uL (1.0-4.8); Lymphocytes % (A) 17 %; MCHC 33.7 g/dL (31.0-37.0); Mean Platelet Volume 11.8; Microcytosis Slight; Monocytes # (A) 0.4 k/uL (0-1.0); Monocytes % (A) 6 %; Neutrophils # (A) 4.9 k/uL (1.3-7.7); Neutrophils % (A) 71 %; Poikilocytosis Moderate; RDW 20.3 % (11.5-15.5); WBC 6.9 k/uL (3.8-10.6)
[2022-02-05 14:58] LABS: Albumin 3.7 g/dL (3.5-5.0); Calcium 8.3 mg/dL (8.4-10.2); Potassium 3.8 mmol/L (3.5-5.1); Total Bilirubin 1.6 mg/dL (0.2-1.3)
[2022-02-05 15:21] LABS: Platelet Count 148 k/uL (150-450); Polychromasia Present
[2022-02-05] MEDS ORDERED: DIPHENOX-ATROP 2.5-0.025 MG 1 EACH TAB PO STA (18:08)
== END 2022-02-05 18:22 | disposition home or self-care (01) ==
LOC: EC 14:08
DX: R19.7 Diarrhea, unspecified (principal); I10 Essential (primary) hypertension; I25.2 Old myocardial infarction; F41.9 Anxiety disorder, unspecified; F32.A Depression, unspecified; Z87.891 Personal history of nicotine dependence; Z79.82 Long term (current) use of aspirin; Z79.899 Other long term (current) drug therapy; Z88.8 Allergy status to other drugs, medicaments and biological substances
CPT/HCPCS: 36415; 80053; 82150; 83605; 83690; 85025; 96360; 99284

== ENCOUNTER 2022-02-18 18:15 | Emergency (ER) | payer MEDICARE ==
[2022-02-18] MEDS ORDERED: SODIUM CHLORIDE 0.9% 1,000 ML IV STA (18:43)
--- NOTE | 2022-02-18 19:00 | XR ---
EXAMINATION TYPE: XR chest 2V DATE OF EXAM: 02/18/2022 6:55 PM COMPARISON: Chest x-ray 01/09/2022 TECHNIQUE: XR chest 2V . CLINICAL INDICATION:Male, 81 years old with history of Weakness; FINDINGS: Lungs/Pleura: There is diffusely increased lucency of the lungs, consistent with chronic COPD changes . No evidence of pneumothorax, pleural effusion or focal consolidation. Pulmonary vascularity: Unremarkable. Heart/mediastinum: Cardiomediastinal silhouette is unremarkable. Atherosclerotic calcifications are seen in the aorta. Musculoskeletal: Multiple level degenerative disc disease changes seen throughout the spine. IMPRESSION: 1. No acute cardiopulmonary disease process. 2. COPD changes.
--- NOTE | 2022-02-18 19:05 | ED ---
Weakness HPI - General Chief complaint: Weakness Stated complaint: Diarrhea Time Seen by Provider: 02/18/22 18:37 Source: patient Mode of arrival: EMS Limitations: no limitations - History of Present Illness Initial comments: Patient is an 81-year-old male presenting with chief complaint of generalized weakness. Patient has had chronic abdominal pain and diarrhea since October. Patient follows with Dr. Lowery, has follow-up scheduled for Sunday. Patient was previously treated for C. diff. He states that the pain comes in waves. He notes no change in the character of his pain or change in his diarrhea. No hematochezia or melena. Patient states that he has had generalized weakness for quite some time. No chest pain or difficulty breathing. No fever or chills. No nausea or vomiting. No palpitations. - Related Data Home Medications Medication Instructions Recorded Confirmed Pantoprazole Sodium [Protonix] 40 mg PO DAILY 03/08/16 01/13/22 Vit C/E/Zn/Coppr/Lutein/Zeaxan 1 cap PO HS 12/12/18 01/13/22 [Preservision Areds 2 Softgel] carvediloL [Coreg*] 12.5 mg PO BID 07/16/21 01/13/22 Cholecalciferol [Vitamin D3 (25 25 mcg PO HS 08/18/21 01/13/22 Mcg = 1000 Iu)] Super B Complex 1 tab PO HS 08/18/21 01/13/22 Dicyclomine [Bentyl] 20 mg PO QID 01/06/22 01/13/22 Previous Rx's Medication Instructions Recorded Aspirin 81 mg PO DAILY tab 01/12/22 Atorvastatin [Lipitor] 40 mg PO HS #30 tab 01/12/22 Cholestyramine (with Sugar) 4 gm PO TID #0 01/12/22 [Cholestyramine Packet] Epoetin Dennis [Procrit] 20,000 unit SQ Q7D #4 each 01/12/22 Fidaxomicin [Dificid] 200 mg PO BID 10 Days #40 tab 01/12/22 LORazepam [Ativan] 1 tab PO TID #9 tab 01/12/22 Lactobacillus Acidoph & Bulgar 1 each PO BID #60 packet 01/12/22 [Lactinex] traMADol HCl [Ultram] 50 mg PO QID PRN #12 tab 01/12/22 Allergies Allergy/AdvReac Type Severity Reaction Status Date / Time alprazolam [From Xanax] AdvReac Confusion Verified 02/18/22 18:27 Review of Systems ROS Statement: Those systems with pertinent positive or pertinent negative responses have been documented in the HPI. ROS Other: All systems not noted in ROS Statement are negative. Past Medical History Past Medical History: Hypertension, Myocardial Infarction ([place]) Additional Past Medical History / Comment(s): Pt recently admitted to [facility] on 10/18/21 with anemia, myelofibrosis, gastritis, colitis, exacerbation COPD, acute of chronic respiratory failure, abdominal pain/enlarged spleen, CKD. Other hx: Interstitial lung disease, pulmonary fibrosis, PE in 2011-pt cannot recall laterality, past home O2 use but none now, [place]-cannot tolerate Cpap, prostate cancer with radiation treatment, skin cancer with removals, nephrolithiasis, migraines, compression fracture low back, bilateral elbow fractures with surgery, PUD, jaundiced as a child, [place] bilaterally. "mild" [place] in january 2020.Myelofibrosis Last Myocardial Infarction Date:: January 2020 History of Any Multi-Drug Resistant Organisms: None Reported Date of last positivie culture/infection: October 26 2021 Past Surgical History: Orthopedic Surgery Additional Past Surgical History / Comment(s): Prostate biopsy, R hip hemiarthroplasty, L hand partial amp of 2 fingers, L knee ACL repair, R knee arthroscopy, bilateral total elbow replacements per pt, bilateral cataract removals, L inguinal hernia repair, cardiac caths x 2, EGD, colonoscopy, skin ca ncer removals. Past Anesthesia/Blood Transfusion Reactions: No Reported Reaction Date of Last Stent Placement:: January 2020. Past Psychological History: Anxiety, Depression Smoking Status: Former smoker Past Alcohol Use History: None Reported Past Drug Use History: None Reported - Past Family History Brother(s) Family Medical History: Cancer Additional Family Medical History / Comment(s): ONE BROTHER HAD LUNG CA & ANOTHER HAD MELANOMA. Brother just recently last week. Mother Family Medical History: AICD/Pacemaker Father Family Medical History: No Reported History Sister(s) Family Medical History: No Reported History General Exam Limitations: no limitations General appearance: alert, in no apparent distress Head exam: Present: atraumatic, normocephalic, normal inspection Eye exam: Present: normal appearance, PERRL, EOMI. Absent: scleral icterus, conjunctival injection, periorbital swelling Neck exam: Present: normal inspection Respiratory exam: Present: normal lung sounds bilaterally. Absent: respiratory distress, wheezes, rales, rhonchi, stridor Cardiovascular Exam: Present: regular rate, normal rhythm, normal heart sounds. Absent: systolic murmur, diastolic murmur, rubs, gallop, clicks GI/Abdominal exam: Present: soft, tenderness (diffuse). Absent: distended, guarding, rebound, rigid Neurological exam: Present: alert, oriented X3, CN II-XII intact Psychiatric exam: Present: normal affect, normal mood Skin exam: Present: warm, dry, intact, normal color. Absent: rash Course Vital Signs 02/18/22 02/18/22 18:24 22:22 Temperature 98.2 F 97.8 F Pulse Rate 86 88 Respiratory 20 16 Rate Blood Pressure 175/82 179/86 O2 Sat by Pulse 95 93 L Oximetry EKG Findings - EKG Comments: EKG Findings:: Sinus rhythm rate of 84. IL interval 155. QRS 98. QT 360. QTC 401. No ischemic changes. Left axis deviation. Medical Decision Making - Medical Decision Making Patient is an 81-year-old male presenting with chief complaint of chronic abdominal pain and diarrhea. Patient also admits to ongoing generalized weakness. On physical examination, there is colicky abdominal pain present, patient states it comes and goes. WBC 8.4 hemoglobin 11.3. Creatinine 1.95, this is consistent with his baseline. Elevated bilirubin and alkaline phosphatase are consistent with his baseline. Troponin is 0.021, this is trending downward from previous visits. BNP ordered by nursing staff prior to my examination, 3430 however he is having no chest pain, difficulty breathing, lower extremity swelling, or coughing. Chest x-rays negative for any acute cardiopulmonary process. CT of the abdomen and pelvis shows colitis with similar distribution to prior examination from 01/10/22. Patient has follow-up appointment with Dr. Lowery on Sunday. Patient is instructed to keep this appoi ntment. Follow-up with PCP. Report back to ER with any new or worsening symptoms. Discussed return parameters and answered all questions. Patient conveyed verbal understanding and agreed to the plan. I discussed this case in detail with my attending Dr. Scott. - Lab Data Result diagrams: 02/18/22 18:34 02/18/22 18:34 Lab Results 02/18/22 02/18/22 02/18/22 Range/Units 18:34 18:34 18:34 WBC 8.4 (3.8-10.6) k/uL RBC 4.13 L (4.30-5.90) m/uL Hgb 11.3 L (13.0-17.5) gm/dL Hct 32.8 L (39.0-53.0) % MCV 79.6 L (80.0-100.0) fL MCH 27.5 (25.0-35.0) pg MCHC 34.5 (31.0-37.0) g/dL RDW 19.6 H (11.5-15.5) % Plt Count 189 (150-450) k/uL MPV 12.1 Neutrophils % 72 % Lymphocytes % 16 % Monocytes % 5 % Eosinophils % 2 % Basophils % 1 % Neutrophils # 6.1 (1.3-7.7) k/uL Lymphocytes # 1.4 (1.0-4.8) k/uL Monocytes # 0.4 (0-1.0) k/uL Eosinophils # 0.1 (0-0.7) k/uL Basophils # 0.1 (0-0.2) k/uL Hypochromasia Slight Poikilocytosis Moderate Anisocytosis Slight Microcytosis Slight PT 12.8 H (9.0-12.0) sec INR 1.2 H (<1.2) APTT 26.3 (22.0-30.0) sec Sodium 138 (137-145) mmol/L Potassium 4.1 (3.5-5.1) mmol/L Chloride 107 (98-107) mmol/L Carbon Dioxide 19 L (22-30) mmol/L Anion Gap 12 mmol/L BUN 20 (9-20) mg/dL Creatinine 1.95 H (0.66-1.25) mg/dL Est GFR (CKD-EPI)AfAm 37 (>60 ml/min/1.73 sqM) Est GFR (CKD-EPI)NonAf 32 (>60 ml/min/1.73 sqM) Glucose 121 H (74-99) mg/dL Plasma Lactic Acid Mateo (0.7-2.0) mmol/L Calcium 8.2 L (8.4-10.2) mg/dL Phosphorus (2.5-4.5) mg/dL Magnesium (1.6-2.3) mg/dL Total Bilirubin 1.9 H (0.2-1.3) mg/dL AST 36 (17-59) U/L ALT 25 (4-49) U/L Alkaline Phosphatase 180 H (38-126) U/L Troponin I (0.000-0.034) ng/mL NT-Pro-B Natriuret Pep pg/mL Total Protein 6.0 L (6.3-8.2) g/dL Albumin 3.6 (3.5-5.0) g/dL Urine Color Urine Appearance (Clear) Urine pH (5.0-8.0) Ur Specific [place]tt (1.001-1.035) Urine Protein (Negative) Urine Glucose (UA) (Negative) Urine Ketones (Negative) Urine Blood (Negative) Urine Nitrite (Negative) Urine Bilirubin (Negative) Urine Urobilinogen (<2.0) mg/dL Ur Leukocyte Esterase (Negative) 02/18/22 02/18/22 02/18/22 Range/Units 18:34 18:34 18:34 WBC (3.8-10.6) k/uL RBC (4.30-5.90) m/uL Hgb (13.0-17.5) gm/dL Hct (39.0-53.0) % MCV (80.0-100.0) fL MCH (25.0-35.0) pg MCHC (31.0-37.0) g/dL RDW (11.5-15.5) % Plt Count (150-450) k/uL MPV Neutrophils % % Lymphocytes % % Monocytes % % Eosinophils % % Basophils % % Neutrophils # (1.3-7.7) k/uL Lymphocytes # (1.0-4.8) k/uL Monocytes # (0-1.0) k/uL Eosinophils # (0-0.7) k/uL Basophils # (0-0.2) k/uL Hypochromasia Poikilocytosis Anisocytosis Microcytosis PT (9.0-12.0) sec INR (<1.2) APTT (22.0-30.0) sec Sodium (137-145) mmol/L Potassium (3.5-5.1) mmol/L Chloride (98-107) mmol/L Carbon Dioxide (22-30) mmol/L Anion Gap mmol/L BUN (9-20) mg/dL Creatinine (0.66-1.25) mg/dL Est GFR (CKD-EPI)AfAm (>60 ml/min/1.73 sqM) Est GFR (CKD-EPI)NonAf (>60 ml/min/1.73 sqM) Glucose (74-99) mg/dL Plasma Lactic Acid Mateo 1.1 (0.7-2.0) mmol/L Calcium (8.4-10.2) mg/dL Phosphorus (2.5-4.5) mg/dL Magnesium (1.6-2.3) mg/dL Total Bilirubin (0.2-1.3) mg/dL AST (17-59) U/L ALT (4-49) U/L Alkaline Phosphatase (38-126) U/L Troponin I 0.021 (0.000-0.034) ng/mL NT-Pro-B Natriuret Pep 3430 pg/mL Total Protein (6.3-8.2) g/dL Albumin (3.5-5.0) g/dL Urine Color Urine Appearance (Clear) Urine pH (5.0-8.0) Ur Specific [place]tt (1.001-1.035) Urine Protein (Negative) Urine Glucose (UA) (Negative) Urine Ketones (Negative) Urine Blood (Negative) Urine Nitrite (Negative) Urine Bilirubin (Negative) Urine Urobilinogen (<2.0) mg/dL Ur Leukocyte Esterase (Negative) 02/18/22 02/18/22 Range/Units 18:45 19:17 WBC (3.8-10.6) k/uL RBC (4.30-5.90) m/uL Hgb (13.0-17.5) gm/dL Hct (39.0-53.0) % MCV (80.0-100.0) fL MCH (25.0-35.0) pg MCHC (31.0-37.0) g/dL RDW (11.5-15.5) % Plt Count (150-450) k/uL MPV Neutrophils % % Lymphocytes % % Monocytes % % Eosinophils % % Basophils % % Neutrophils # (1.3-7.7) k/uL Lymphocytes # (1.0-4.8) k/uL Monocytes # (0-1.0) k/uL Eosinophils # (0-0.7) k/uL Basophils # (0-0.2) k/uL Hypochromasia Poikilocytosis Anisocytosis Microcytosis PT (9.0-12.0) sec INR (<1.2) APTT (22.0-30.0) sec Sodium (137-145) mmol/L Potassium (3.5-5.1) mmol/L Chloride (98-107) mmol/L Carbon Dioxide (22-30) mmol/L Anion Gap mmol/L BUN (9-20) mg/dL Creatinine (0.66-1.25) mg/dL Est GFR (CKD-EPI)AfAm (>60 ml/min/1.73 sqM) Est GFR (CKD-EPI)NonAf (>60 ml/min/1.73 sqM) Glucose (74-99) mg/dL Plasma Lactic Acid Mateo (0.7-2.0) mmol/L Calcium (8.4-10.2) mg/dL Phosphorus 4.1 (2.5-4.5) mg/dL Magnesium 1.6 (1.6-2.3) mg/dL Total Bilirubin (0.2-1.3) mg/dL AST (17-59) U/L ALT (4-49) U/L Alkaline Phosphatase (38-126) U/L Troponin I (0.000-0.034) ng/mL NT-Pro-B Natriuret Pep pg/mL Total Protein (6.3-8.2) g/dL Albumin (3.5-5.0) g/dL Urine Color Light Yellow Urine Appearance Clear (Clear) Urine pH 5.5 (5.0-8.0) Ur Specific Parrott 1.006 (1.001-1.035) Urine Protein Trace H (Negative) Urine Glucose (UA) Negative (Negative) Urine Ketones Negative (Negative) Urine Blood Negative (Negative) Urine Nitrite Negative (Negative) Urine Bilirubin Negative (Negative) Urine Urobilinogen <2.0 (<2.0) mg/dL Ur Leukocyte Esterase Negative (Negative) Disposition Clinical Impression: Diarrhea Disposition: HOME SELF-CARE Condition: Fair Instructions (If sedation given, give patient instructions): Chronic Diarrhea (ED), Chronic Abdominal Pain (ED) Additional Instructions: Follow-up with PCP and Dr. Lowery at scheduled appointment. Report back to ER with any new or worsening symptoms. Is patient prescribed a controlled substance at d/c from ED?: No Referrals: Barrington Goyal Jr, DO [Primary Care Provider] - 1-2 days Lilliana Lowery MD [STAFF PHYSICIAN] - 02/20/22 Time of Disposition: 22:49
[2022-02-18 19:10] LABS: Anisocytosis Slight; Basophils # (A) 0.1 k/uL (0-0.2); Basophils % (A) 1 %; Eosinophils # (A) 0.1 k/uL (0-0.7); Eosinophils % (A) 2 %; HCT 32.8 % (39.0-53.0); HGB 11.3 gm/dL (13.0-17.5); Hypochromasia Slight; Lymphocytes # (A) 1.4 k/uL (1.0-4.8); Lymphocytes % (A) 16 %; MCH 27.5 pg (25.0-35.0); MCHC 34.5 g/dL (31.0-37.0); MCV 79.6 fL (80.0-100.0); Mean Platelet Volume 12.1; Microcytosis Slight; Monocytes # (A) 0.4 k/uL (0-1.0); Monocytes % (A) 5 %; Neutrophils # (A) 6.1 k/uL (1.3-7.7); Neutrophils % (A) 72 %; Platelet Count 189 k/uL (150-450); Poikilocytosis Moderate; RBC 4.13 m/uL (4.30-5.90); RDW 19.6 % (11.5-15.5); WBC 8.4 k/uL (3.8-10.6)
[2022-02-18 19:22] LABS: INR 1.2 (<1.2); Partial Thromboplastin Time 26.3 sec (22.0-30.0); Prothrombin Time 12.8 sec (9.0-12.0)
[2022-02-18 19:50] LABS: Magnesium 1.6 mg/dL (1.6-2.3); Phosphorus 4.1 mg/dL (2.5-4.5)
[2022-02-18 20:55] LABS: Appearance,Urine Clear (Clear); Bilirubin,Urine Negative (Negative); Blood,Urine Negative (Negative); Color,Urine Light Yellow; Glucose,Urine (UA) Negative (Negative); Ketones,Urine Negative (Negative); Leukocyte Esterase,Urine Negative (Negative); Nitrite,Urine Negative (Negative); PH, Urine 5.5 (5.0-8.0); Protein,Urine Trace (Negative); Specific Gravity,Urine 1.006 (1.001-1.035); Urobilinogen,Urine <2.0 mg/dL (<2.0)
[2022-02-18 20:56] LABS: Albumin 3.6 g/dL (3.5-5.0); Calcium 8.2 mg/dL (8.4-10.2); Potassium 4.1 mmol/L (3.5-5.1); Total Bilirubin 1.9 mg/dL (0.2-1.3)
--- NOTE | 2022-02-18 22:27 | CT ---
EXAMINATION TYPE: CT abdomen pelvis wo con CT DLP: 591.4 mGycm, Automated exposure control for dose reduction was used. DATE OF EXAM: 02/18/2022 9:49 PM COMPARISON: CT abdomen pelvis 01/10/2022 CLINICAL INDICATION:Male, 81 years old with history of generalized abdominal pain; Generalized abdomi nal pain, diarrhea TECHNIQUE: Axial CT of the abdomen and pelvis. Sagittal and coronal reformats were created on a [employer] workstation. Contrast used: None Oral contrast used: without Oral Contrast FINDINGS: LOWER CHEST: Posterior dependent atelectasis. Cystic changes of the lung bases. ABDOMEN LIVER: Similar hepatomegaly. GALLBLADDER AND BILE DUCTS: The gallbladder is surgically absent. PANCREAS: Unremarkable. SPLEEN: Redemonstration of marked splenomegaly with spleen measuring 23.0 cm, similar to prior. Dilat ed splenic vessels. ADRENAL GLANDS: Unremarkable. KIDNEYS AND URETERS: Atrophic right kidney. Stable small calculus near the right ureter pelvic juncti on. Nonobstructing left upper pole renal calculus. No hydronephrosis. PELVIS BLADDER: There is unremarkable. Pelvis is limited due to beam hardening artifact from right hip prost hesis. REPRODUCTIVE: Prostatomegaly. ABDOMEN & PELVIS STOMACH AND BOWEL: Stomach and duodenum are unremarkable. Long segment of colonic wall thickening and pericolonic inflammatory changes involving the transverse, descending and sigmoid colon. No evidence of bowel obstruction. PERITONEUM: No evidence of pneumoperitoneum or free fluid. VASCULATURE: Similar fusiform aneurysmal dilatation of the infrarenal abdominal aorta measuring up to 3.5 cm. Smaller aneurysmal dilatation of the left common iliac artery with calcifications suggesting either mural thrombus versus short segmental dissection. 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 Similar diffuse enlargement of the celiac axis. Dilated splenic veins. MUSCULOSKELETAL: No acute osseous abnormalities. Grade 1 retrolisthesis of L2 on L3 and L3 on L4. Mod erate disc degeneration changes are present throughout the thoracolumbar spine. Right total hip arthr oplasty. LYMPH NODES: No gross evidence for lymphadenopathy. SOFT TISSUE/ABDOMINAL WALL: Unremarkable IMPRESSION: 1. Long segment colonic wall thickening concerning for acute colitis, similar distribution to prior C T examination from 01/10/2022. 2. Marked hepatosplenomegaly. Continued recommend further evaluation and management. 3. 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 4. Additional chronic and incidental findings as detailed above.
[2022-02-19 00:14] VITALS: BP 168/88; PULSE 81; RESP 20; TEMP 98.2
== END 2022-02-19 00:44 | disposition home or self-care (01) ==
LOC: EC 18:15
DX: R19.7 Diarrhea, unspecified (principal); I10 Essential (primary) hypertension; I25.2 Old myocardial infarction; F41.9 Anxiety disorder, unspecified; F32.A Depression, unspecified; Z79.52 Long term (current) use of systemic steroids; Z88.2 Allergy status to sulfonamides
CPT/HCPCS: 36415; 71046; 74176; 80053; 81003; 83605; 83735; 83880; 84100; 84484; 85025; 85610; 85730; 93005; 96360; 99285

== ENCOUNTER 2022-02-24 09:37 | Day surgery (SDC) | payer MEDICARE ==
[2022-02-23 09:08] VITALS: BMI 20.6
[~2022-02-24 09:37] MED LIST: LACTATED RINGERS 1,000 ML IV SCH
[2022-02-24 10:51] VITALS: TEMP 97.6
[2022-02-24] MEDS ORDERED: LIDOCAINE 2% INJ 20 MG/ML (2 ML VIAL) ONE (11:32)
[2022-02-24] MEDS ORDERED: PROPOFOL 10 MG/ML 20 ML VIAL IV ONE (11:32)
[2022-02-24] MEDS ORDERED: fentaNYL (PF) 50 MCG/ML 2 ML AMP ONE (11:32)
--- NOTE | 2022-02-24 11:59 | P.PCN ---
Date of Procedure: 02/24/22 Procedure(s) Performed: Brief history: Patient is a pleasant 81-year-old white male male scheduled for an elective upper endoscopy as well as colonoscopy as a part of evaluation of abdominal pain mostly in the epigastric area, chronic diarrhea for 6 months duration was evidence of 30 pounds since onset of the symptoms. Stool studies were all negative. He had a colonoscopy by Dr. Reece infusion of this year which revealed patchy areas of erythema in the sigmoid colon and rectum and biopsies revealed acute colitis with surveillance formation suspicious for colitis. He was treated empirically with Flagyl and vancomycin despite stool studies for C. diff toxin with no help. Recently was treated with Bentyl as well as Lomotil with no help. Because of the persistent diarrhea and progressive weight loss he scheduled for repeat colonoscopy to evaluate further Procedure performed: Esophagogastroduodenoscopy with biopsy Colonoscopy with biopsy Preoperative diagnosis: Epigastric and left upper quadrant abdominal pain/progressive weight loss and chronic diarrhea of 6 months duration Anesthesia: MAC Procedure: After informed consent was obtained from the patient was brought into the endoscopy unit and IV sedation was administered by anesthesia under continuous monitoring. Initially upper endoscopy was done. The Olympus GF 160 video endoscope was inserted inserted into the mouth and esophagus intubated without any difficulty and was gradually advanced into the stomach and duodenum and carefully examined. The bulb and second part of the duodenum appeared normal. The scope was then withdrawn into the stomach adequately insufflated with air and upon careful examination the antrum and body, had mild diffuse gastritis and biopsies were done from this area. Mucosa of the cardia and fundus appeared normal. The scope was then withdrawn into the esophagus. The GE junction was located at 40 cm to the incisors. It appeared regular with no erythema erosions or ulcerations. Rest of the esophagus appeared normal. Patient tolerated the procedure well. At this time the patient continued to remain sedation. Initial digital rectal examination was normal. Olympus CF 160 video colonoscope was then inserted into the rectum and gradually advanced to the cecum without any difficulty. Careful examination was performed as the scope was gradually being withdrawn. The prep was excellent. Terminal ileum was intubated and 20 cm visualized and appeared normal. Biopsies were done from this area. The cecum, ascending colon, transverse colon, descending colon, sigmoid colon and rectum appeared normal. Random biopsies were done in DIFFERENT AREAS OF THE COLON. Retroflexion was performed in the rectum and no lesions were noted. Patient tolerated the procedure well. Impression: 1. Upper endoscopy revealed mild diffuse gastritis but no evidence of esophagitis or peptic ulcer disease 2. Colonoscopy was within normal limits with no evidence of colitis or colorectal neoplasia. Recommendations: Findings of this examination were discussed with the patient as well as his family. He was advised to follow with the biopsy results. He'll be seen in office in one week.
[2022-02-24] MEDS ORDERED: HYDROcodone/APAP 5-325MG 1 EACH TAB ONE (12:46)
[2022-02-24] MEDS ORDERED: HYDROcodone/APAP 5-325MG 1 EACH TAB PO ONE (12:50)
[2022-02-24 13:53] VITALS: BP 172/68; PULSE 78; RESP 18
== END 2022-02-24 13:51 | disposition home or self-care (01) ==
LOC: ORWHC2ENDO 09:37
PROVIDERS: ATTEND Internal Medicine Gastroenterology
DX: K29.50 Unspecified chronic gastritis without bleeding (principal); K52.9 Noninfective gastroenteritis and colitis, unspecified; I10 Essential (primary) hypertension; G47.33 Obstructive sleep apnea (adult) (pediatric); Z79.899 Other long term (current) drug therapy
CPT/HCPCS: 88305; 45380; 43239; J3010; J2704; J2001

== ENCOUNTER 2022-03-12 01:28 | Inpatient (IN) | payer MEDICARE ==
[2022-03-12] MEDS ORDERED: MORPHINE SULFATE 4 MG/ML SYRINGE IV STA (01:31)
[2022-03-12] MEDS ORDERED: SODIUM CHLORIDE 0.9% 1,000 ML IV STA (01:31)
--- NOTE | 2022-03-12 02:00 | ED ---
Abdominal Pain HPI - General Chief Complaint: Abdominal Pain Stated Complaint: Abd Pain Time Seen by Provider: 03/12/22 01:31 Source: EMS, RN notes reviewed, old records reviewed Mode of arrival: EMS - History of Present Illness Initial Comments: This is a 82-year-old male to the emergency department for evaluation patient Dese for evaluation of cough or congestion history of COPD also severe intractable abdominal pain history of kidney stones this pain is worse as left-sided severe causing nausea vomiting increasing shortness of breath. No fevers no other complaints MD Complaint: abdominal pain -: hour(s) Location: diffuse Radiation: epigastric, suprapubic Migration to: no migration Severity: moderate Severity scale (1-10): 4 Quality: cramping, stabbing Consistency: intermittent Improves With: nothing Worsens With: nothing Associated Symptoms: nausea Treatments Prior to Arrival: other (0) - Related Data Home Medications Medication Instructions Recorded Confirmed Pantoprazole Sodium [Protonix] 40 mg PO DAILY 03/08/16 02/24/22 Vit C/E/Zn/Coppr/Lutein/Zeaxan 1 cap PO BID 12/12/18 02/24/22 [Preservision Areds 2 Softgel] carvediloL [Coreg*] 12.5 mg PO BID 07/16/21 02/24/22 Cholecalciferol [Vitamin D3 (25 25 mcg PO DAILY 08/18/21 02/24/22 Mcg = 1000 Iu)] Super B Complex 1 tab PO DAILY 08/18/21 02/24/22 Dicyclomine [Bentyl] 20 mg PO QID 01/06/22 02/24/22 Acetaminophen Tab [Tylenol Tab] 500 - 1,000 mg PO Q6H PRN 02/23/22 02/24/22 Atorvastatin [Lipitor] 40 mg PO QAM 02/23/22 02/24/22 HYDROcodone/APAP 5-325MG [[place] 1 tab PO DIRECTED PRN 02/23/22 02/24/22 5-325] LORazepam [Ativan] 0.5 mg PO TID 02/23/22 02/24/22 amLODIPine [Norvasc] 2.5 mg PO QAM 02/23/22 02/24/22 Previous Rx's Medication Instructions Recorded Aspirin 81 mg PO DAILY tab 01/12/22 Allergies Allergy/AdvReac Type Severity Reaction Status Date / Time alprazolam [From Xanax] AdvReac Confusion Verified 03/12/22 01:46 Review of Systems ROS Statement: Those systems with pertinent positive or pertinent negative responses have been documented in the HPI. ROS Other: All systems not noted in ROS Statement are negative. Past Medical History Past Medical History: Cancer, COPD, Hypertension, Myocardial Infarction ([place]), R enal Disease, Sleep Apnea/CPAP/BIPAP Additional Past Medical History / Comment(s): Hx anemia, myelofibrosis, gastritis, colitis, abdominal pain/enlarged spleen, CKD, interstitial lung disease, pulmonary fibrosis, PE in 2012-pt cannot recall laterality, cannot tolerate Cpap, hx prostate cancer with radiation treatment 3-5 yrs ago, hx skin cancer with removals, nephrolithiasis, migraines, compression fracture low back, bilateral elbow fractures with surgery, PUD, jaundiced as a child, [place] bilaterally. Last Myocardial Infarction Date:: January 2020 History of Any Multi-Drug Resistant Organisms: None Reported Date of last positivie culture/infection: October 26 2021 Past Surgical History: Heart Catheterization, Hernia Repair, Orthopedic Surgery Additional Past Surgical History / Comment(s): Prostate biopsy, R hip hemiarthroplasty, L hand partial amp of 2 fingers, L knee ACL repair, R knee arthroscopy, bilateral total elbow replacements per pt, bilateral cataract removals, L inguinal hernia repair, cardiac caths X2, EGD, colonoscopy, skin can cer removals. Past Anesthesia/Blood Transfusion Reactions: No Reported Reaction Date of Last Stent Placement:: January 2020. Past Psychological History: Anxiety, Depression Smoking Status: Former smoker Past Alcohol Use History: None Reported Past Drug Use History: None Reported - Past Family History Brother(s) Family Medical History: Cancer Additional Family Medical History / Comment(s): ONE BROTHER HAD LUNG CA & ANOTHER HAD MELANOMA. Brother just recently last week. Mother Family Medical History: AICD/Pacemaker Father Family Medical History: No Reported History Sister(s) Family Medical History: No Reported History General Exam General appearance: alert, in no apparent distress Head exam: Present: atraumatic, normocephalic, normal inspection Eye exam: Present: normal appearance, PERRL, EOMI. Absent: scleral icterus, conjunctival injection, periorbital swelling ENT exam: Present: normal exam, mucous membranes moist Neck exam: Present: normal inspection. Absent: tenderness, meningismus, lymphadenopathy Respiratory exam: Present: respiratory distress, wheezes, accessory muscle use, decreased breath sounds, prolonged expiratory. Absent: rales, rhonchi, stridor Cardiovascular Exam: Present: regular rate, normal rhythm, normal heart sounds. Absent: systolic murmur, diastolic murmur, rubs, gallop, clicks GI/Abdominal exam: Present: soft, normal bowel sounds. Absent: distended, tenderness, guarding, rebound, rigid Extremities exam: Present: normal inspection, full ROM, normal capillary refill. Absent: tenderness, pedal edema, joint swelling, calf tenderness Back exam: Present: normal inspection Neurological exam: Present: alert, oriented X3, CN II-XII intact Psychiatric exam: Present: normal affect, normal mood Skin exam: Present: warm, dry, intact, normal color. Absent: rash Course Vital Signs 03/12/22 03/12/22 01:44 02:38 Temperature 98 F Pulse Rate 94 90 Respiratory 18 18 Rate Blood Pressure 182/89 164/77 O2 Sat by Pulse 95 92 L Oximetry - Reevaluation(s) Reevaluation #1: 03/12/22 03:22 Medical records reviewed Reevaluation #2: 03/12/22 03:22 Patient symptoms are improved Reevaluation #3: 03/12/22 03:22 A patient is informed results and questions answered - Consultations Consultation #1: Spoke with Dr. Panda regarding admission he agrees Consultation #2: Spoke with urology who agree to consult Medical Decision Making - Medical Decision Making 82 male to the ER for evaluation of multiple complaints shortness of breath and abdominal pain. COPD with hypoxia on top of left-sided abdominal pain with left-sided hydronephrosis and kidney stone - Lab Data Result diagrams: 03/12/22 01:54 03/12/22 01:54 Lab Results 03/12/22 03/12/22 03/12/22 Range/Units 01:54 01:54 01:54 WBC 8.4 (3.8-10.6) k/uL RBC 3.89 L (4.30-5.90) m/uL Hgb 10.7 L (13.0-17.5) gm/dL Hct 30.9 L (39.0-53.0) % MCV 79.4 L (80.0-100.0) fL MCH 27.5 (25.0-35.0) pg MCHC 34.6 (31.0-37.0) g/dL RDW 19.4 H (11.5-15.5) % Plt Count 208 (150-450) k/uL MPV 11.3 Neutrophils % 70 % Lymphocytes % 16 % Monocytes % 8 % Eosinophils % 2 % Basophils % 2 % Neutrophils # 5.8 (1.3-7.7) k/uL Lymphocytes # 1.3 (1.0-4.8) k/uL Monocytes # 0.7 (0-1.0) k/uL Eosinophils # 0.1 (0-0.7) k/uL Basophils # 0.1 (0-0.2) k/uL Poikilocytosis Slight Anisocytosis Slight Microcytosis Slight Sodium 136 L (137-145) mmol/L Potassium 4.3 (3.5-5.1) mmol/L Chloride 107 (98-107) mmol/L Carbon Dioxide 23 (22-30) mmol/L Anion Gap 6 mmol/L BUN 34 H (9-20) mg/dL Creatinine 2.21 H (0.66-1.25) mg/dL Est GFR (CKD-EPI)AfAm 31 (>60 ml/min/1.73 sqM) Est GFR (CKD-EPI)NonAf 27 (>60 ml/min/1.73 sqM) Glucose 105 H (74-99) mg/dL Plasma Lactic Acid Mateo 0.7 (0.7-2.0) mmol/L Calcium 8.7 (8.4-10.2) mg/dL Total Bilirubin 1.5 H (0.2-1.3) mg/dL AST 40 (17-59) U/L ALT 35 (4-49) U/L Alkaline Phosphatase 206 H (38-126) U/L Total Protein 6.2 L (6.3-8.2) g/dL Albumin 3.9 (3.5-5.0) g/dL Amylase 70 (30-110) U/L Lipase 138 (23-300) U/L - Radiology Data Radiology results: report reviewed (CT of the abdomen and pelvis is positive for left-sided UVJ with hydronephrosis), image reviewed Disposition Clinical Impression: Left ureteral calculus, Abdominal pain, COPD (chronic obstructive pulmonary disease), Calculus of ureter, Nausea & vomiting Disposition: ADMITTED IP TO THIS HOSP Condition: Fair Is patient prescribed a controlled substance at d/c from ED?: No Referrals: Barrington Goyal Jr, [Primary Care Provider] - 1-2 days Time of Disposition: 03:20
[2022-03-12] MEDS ORDERED: HYDROmorphone 1 MG/ML 1 ML SYRINGE IVP STA (02:26)
[2022-03-12] MEDS ORDERED: ONDANSETRON 4 MG/2 ML VIAL IVP STA (02:26)
[2022-03-12 02:36] LABS: Anisocytosis Slight; Basophils # (A) 0.1 k/uL (0-0.2); Basophils % (A) 2 %; Eosinophils # (A) 0.1 k/uL (0-0.7); Eosinophils % (A) 2 %; HCT 30.9 % (39.0-53.0); HGB 10.7 gm/dL (13.0-17.5); Lymphocytes # (A) 1.3 k/uL (1.0-4.8); Lymphocytes % (A) 16 %; MCH 27.5 pg (25.0-35.0); MCHC 34.6 g/dL (31.0-37.0); MCV 79.4 fL (80.0-100.0); Mean Platelet Volume 11.3; Microcytosis Slight; Monocytes # (A) 0.7 k/uL (0-1.0); Monocytes % (A) 8 %; Neutrophils # (A) 5.8 k/uL (1.3-7.7); Neutrophils % (A) 70 %; Platelet Count 208 k/uL (150-450); Poikilocytosis Slight; RBC 3.89 m/uL (4.30-5.90); RDW 19.4 % (11.5-15.5); WBC 8.4 k/uL (3.8-10.6)
--- NOTE | 2022-03-12 02:42 | CT ---
EXAMINATION TYPE: CT abdomen pelvis wo con DATE OF EXAM: 03/12/2022 COMPARISON: 02/18/2022 HISTORY: LT ABD PAIN. H/O MYELOFIBROSIS, GASTRITIS, COLITIS, SPLENOMEGALY, INTERSTITIAL LUNG DISEASE, PROSTATE CA W /RADIATION TX, NEPHROLITHIASIS, COMPRESSION FX LOW BACK, INGUINAL HERNIA REPAIR CT DLP: 521.6 mGycm Automated exposure control for dose reduction was used. Images obtained from the diaphragm to the floor the pelvis with no contrast. Lung bases show some mild fibrotic changes and subsegmental atelectasis. Heart is enlarged. No pleura l effusion. No pericardial effusion. There is coronary artery calcification. Liver shows no focal defect. There is massive splenomegaly and the spleen measures 23 cm. Abdominal a zainab is atheromatous. The stomach is intact. No pancreatic mass. There are clips apparently from chol ecystectomy. The bile ducts are not dilated. There is no retroperitoneal adenopathy. Right kidney is small. There is apparent compensatory hypertrophy of the left kidney. There is left-sided hydronephro sis and hydroureter. There is likely 6 mm obstructing calculus at the left ureteropelvic junction. Th ere is right hip prosthesis. Urinary bladder is obscured by metal artifact. No free fluid in the pelv is. No definite pelvic mass. There is some osteosclerosis in the lumbar spine and consistent with the surgery of myelofibrosis. Th ere is L2-3 retrolisthesis. No significant compression deformity. No mesenteric edema. No ascites or free air. No sign of a bowel obstruction. There is aneurysm of the abdominal aorta and extending into the iliac arteries. Aorta measures up to 4 cm in diameter. IMPRESSION: Massive splenomegaly. Bony changes consistent with myelofibrosis. Mild cardiomegaly. Heart appears in creased compared to recent exam. Abdominal aortic aneurysm without much change. Left-sided hydronephrosis and hydroureter with distal ureteral obstructing calculus that has migrated slightly compared to old exam. There is apparent improvement in the wall thickening of the large bowel compared to the exam involvin g the sigmoid colon. No definite sign of colitis on this exam.
[2022-03-12 02:51] LABS: Albumin 3.9 g/dL (3.5-5.0); Calcium 8.7 mg/dL (8.4-10.2); Potassium 4.3 mmol/L (3.5-5.1); Total Bilirubin 1.5 mg/dL (0.2-1.3); Total Protein 6.2 g/dL (6.3-8.2)
[2022-03-12] MEDS ORDERED: KETOROLAC 15 MG/ML 1 ML VIAL IVP STA (03:10)
[2022-03-12] MEDS ORDERED: NALOXONE 0.4 MG/ML 1 ML VIAL IV PRN (03:10)
[2022-03-12] MEDS ORDERED: ONDANSETRON 4 MG/2 ML VIAL IVP PRN (03:10)
[2022-03-12] MEDS ORDERED: PROCHLORPERAZINE INJ 10 MG/2 ML VIAL IVP PRN (03:10)
[2022-03-12] MEDS ORDERED: PROCHLORPERAZINE INJ 10 MG/2 ML VIAL IVP STA (03:10)
[2022-03-12] MEDS: SODIUM CHLORIDE 0.9% 1,000 ML IV SCH ×3 (03:22→21:26)
[2022-03-12] MEDS: HYDROmorphone 1 MG/ML 1 ML SYRINGE IVP PRN ×2 (06:39→16:31)
[2022-03-12] MEDS ORDERED: PANTOPRAZOLE 40 MG/10 ML VIAL IV SCH (09:00)
--- NOTE | 2022-03-12 09:38 | P.GSCN ---
History of Present Illness Consult date: 03/12/22 Reason for Consult: Left ureteral calculus Requesting physician: Barrington Goyal Jr History of present illness: The patient is an 82-year-old white male with a history of urolithiasis. He was treated in 2017 for prostate cancer, receiving IMRT along with 6 months of androgen deprivation therapy. His most recent PSA level on record at [facility] was 0.2 in 2019. In August 2018, he underwent ureteroscopy with laser lithotripsy to treat a 5 mm left distal ureteral calculus. He now presents with left-sided abdominal pain, which she describes as being severe. Onset of pain was last night. CT scan shows evidence of left hydronephrosis due to a 6 mm left distal ureteral calculus. Review of Systems - Constitutional Denies fever - Respiratory Reports dyspnea - Gastrointestinal Reports abdominal pain, Reports diarrhea, Reports nausea, Reports vomiting - Genitourinary Reports flank pain, Reports kidney stones Past Medical History Past Medical History: Cancer, COPD, Hypertension, Myocardial Infarction ([place]), Renal Disease, Sleep Apnea/CPAP/BIPAP Additional Past Medical History / Comment(s): Hx anemia, myelofibrosis, gastritis, colitis, abdominal pain/enlarged spleen, CKD, interstitial lung disease, pulmonary fibrosis, PE in 2011-pt cannot recall laterality, cannot tolerate Cpap, hx prostate cancer with radiation treatment 3-5 yrs ago, hx skin cancer with removals, nephrolithiasis, migraines, compression fracture low back, bilateral elbow fractures with surgery, PUD, jaundiced as a child, [place] bilaterally. Last Myocardial Infarction Date:: January 2020 History of Any Multi-Drug Resistant Organisms: None Reported Year Discovered:: October 26 2021 Past Surgical History: Heart Catheterization, Hernia Repair, Orthopedic Surgery Additional Past Surgical History / Comment(s): Prostate biopsy, R hip hemiarthroplasty, L hand partial amp of 2 fingers, L knee ACL repair, R knee arthroscopy, bilateral total elbow replacements per pt, bilateral cataract removals, L inguinal hernia repair, cardiac caths X2, EGD, colonoscopy, skin cancer removals, left ureteroscopy with laser lithotripsy. Past Anesthesia/Blood Transfusion Reactions: No Reported Reaction Date of Last Stent Placement:: January 2020. Past Psychological History: Anxiety, Depression Smoking Status: Former smoker Past Alcohol Use History: None Reported Past Drug Use History: None Reported - Past Family History Brother(s) Family Medical History: Cancer Additional Family Medical History / Comment(s): ONE BROTHER HAD LUNG CA & ANOTHER HAD MELANOMA. Brother just recently last week. Mother Family Medical History: AICD/Pacemaker Father Family Medical History: No Reported History Sister(s) Family Medical History: No Reported History Medications and Allergies Home Medications Medication Instructions Recorded Confirmed Type Pantoprazole Sodium [Protonix] 40 mg PO DAILY 03/08/16 02/24/22 History Vit C/E/Zn/Coppr/Lutein/Zeaxan 1 cap PO BID 12/12/18 02/24/22 History [Preservision Areds 2 Softgel] carvediloL [Coreg*] 12.5 mg PO BID 07/16/21 02/24/22 History Cholecalciferol [Vitamin D3 (25 25 mcg PO DAILY 08/18/21 02/24/22 History Mcg = 1000 Iu)] Super B Complex 1 tab PO DAILY 08/18/21 02/24/22 History Dicyclomine [Bentyl] 20 mg PO QID 01/06/22 02/24/22 History Aspirin 81 mg PO DAILY tab 01/12/22 02/24/22 Rx Acetaminophen Tab [Tylenol Tab] 500 - 1,000 mg PO Q6H PRN 02/23/22 02/24/22 History Atorvastatin [Lipitor] 40 mg PO QAM 02/23/22 02/24/22 History HYDROcodone/APAP 5-325MG [[place] 1 tab PO DIRECTED PRN 02/23/22 02/24/22 History 5-325] LORazepam [Ativan] 0.5 mg PO TID 02/23/22 02/24/22 History amLODIPine [Norvasc] 2.5 mg PO QAM 02/23/22 02/24/22 History Allergies Allergy/AdvReac Type Severity Reaction Status Date / Time alprazolam [From Xanax] AdvReac Confusion Verified 03/12/22 01:46 Surgical - Exam Vital Signs Temp Pulse Resp BP Pulse Ox 98 F 94 18 182/89 95 03/12/22 01:44 03/12/22 01:44 03/12/22 01:44 03/12/22 01:44 03/12/22 01:44 - General well developed, well nourished, moderate distress - Neck no masses, trachea midline - Respiratory normal respiratory effort - Abdomen Abdomen: soft, tender (Left lower quadrant tenderness to palpation), no guarding, no rigid, no rebound, no distended - Genitourinary normal penis with no external lesions, testicles non-tender - Psychiatric oriented to time, oriented to person, oriented to place, speech is normal, memory intact Results - Labs 03/12/22 01:54 03/12/22 01:54 Abnormal Lab Results - Last 24 Hours (Table) 03/12/22 03/12/22 Range/Units 01:54 01:54 RBC 3.89 L (4.30-5.90) m/uL Hgb 10.7 L (13.0-17.5) gm/dL Hct 30.9 L (39.0-53.0) % MCV 79.4 L (80.0-100.0) fL RDW 19.4 H (11.5-15.5) % Sodium 136 L (137-145) mmol/L BUN 34 H (9-20) mg/dL Creatinine 2.21 H (0.66-1.25) mg/dL Glucose 105 H (74-99) mg/dL Total Bilirubin 1.5 H (0.2-1.3) mg/dL Alkaline Phosphatase 206 H (38-126) U/L Total Protein 6.2 L (6.3-8.2) g/dL Diabetes panel 03/12/22 Range/Units 01:54 Sodium 136 L (137-145) mmol/L Potassium 4.3 (3.5-5.1) mmol/L Chloride 107 (98-107) mmol/L Carbon Dioxide 23 (22-30) mmol/L BUN 34 H (9-20) mg/dL Creatinine 2.21 H (0.66-1.25) mg/dL Glucose 105 H (74-99) mg/dL Calcium 8.7 (8.4-10.2) mg/dL AST 40 (17-59) U/L ALT 35 (4-49) U/L Alkaline Phosphatase 206 H (38-126) U/L Total Protein 6.2 L (6.3-8.2) g/dL Albumin 3.9 (3.5-5.0) g/dL Calcium panel 03/12/22 Range/Units 01:54 Calcium 8.7 (8.4-10.2) mg/dL Albumin 3.9 (3.5-5.0) g/dL Pituitary panel 03/12/22 Range/Units 01:54 Sodium 136 L (137-145) mmol/L Potassium 4.3 (3.5-5.1) mmol/L Chloride 107 (98-107) mmol/L Carbon Dioxide 23 (22-30) mmol/L BUN 34 H (9-20) mg/dL Creatinine 2.21 H (0.66-1.25) mg/dL Glucose 105 H (74-99) mg/dL Calcium 8.7 (8.4-10.2) mg/dL Adrenal panel 03/12/22 Range/Units 01:54 Sodium 136 L (137-145) mmol/L Potassium 4.3 (3.5-5.1) mmol/L Chloride 107 (98-107) mmol/L Carbon Dioxide 23 (22-30) mmol/L BUN 34 H (9-20) mg/dL Creatinine 2.21 H (0.66-1.25) mg/dL Glucose 105 H (74-99) mg/dL Calcium 8.7 (8.4-10.2) mg/dL Total Bilirubin 1.5 H (0.2-1.3) mg/dL AST 40 (17-59) U/L ALT 35 (4-49) U/L Alkaline Phosphatase 206 H (38-126) U/L Total Protein 6.2 L (6.3-8.2) g/dL Albumin 3.9 (3.5-5.0) g/dL - Imaging CT scan - abdomen: report reviewed, image reviewed Assessment and Plan (1) Calculus of ureter Current Visit: Yes Status: Acute Priority: High Code(s): N20.1 - CALCULUS OF URETER SNOMED Code(s): 36454421 (2) Kidney stone Current Visit: No Status: Acute Code(s): N20.0 - CALCULUS OF KIDNEY SNOMED Code(s): 02642550 (3) Hydronephrosis with renal and ureteral calculous obstruction Current Visit: Yes Status: Acute Code(s): N13.2 - HYDRONEPHROSIS WITH RENAL AND URETERAL CALCULOUS OBSTRUCTION SNOMED Code(s): 898063571 Plan: I had a lengthy discussion with Mr. Ward regarding alternative treatment options. Specifically, he was offered the options of medical expulsion therapy versus ureteroscopic removal of the left distal ureteral calculus with stent insertion (via laser lithotripsy +/- stone basketing). The pros and cons of each approach were reviewed in detail, and he has elected to undergo ureteroscopic removal of the calculus. He is aware of potential risks, which include anesthesia, bleeding, infection, inability to successfully remove the calculus, and ureteral injury. Time with Patient: Greater than 30
[2022-03-12] MEDS ORDERED: fentaNYL (PF) 50 MCG/ML 2 ML AMP ONE (10:32)
[2022-03-12] MEDS ORDERED: PROPOFOL 10 MG/ML 20 ML VIAL IV ONE (10:32)
[2022-03-12] MEDS ORDERED: PHENYLEPHRINE-0.9% NACL SYG 1,000 MCG/10 ML SYRINGE ONE (10:32)
[2022-03-12] MEDS ORDERED: LIDOCAINE 2% INJ 20 MG/ML (2 ML VIAL) ONE (10:32)
[2022-03-12] MEDS ORDERED: GLYCOPYRROLATE 0.2 MG/ML 2 ML VIAL ONE (10:32)
[2022-03-12] MEDS ORDERED: ONDANSETRON 4 MG/2 ML VIAL ONE (10:32)
[2022-03-12] MEDS ORDERED: ROCURONIUM 10 MG/ML (5 ML VIAL) IV ONE (10:32)
[2022-03-12] MEDS ORDERED: NEOSTIGMINE 1 MG/ML 10 ML VIAL ONE (10:32)
[2022-03-12] MEDS ORDERED: SUCCINYLCHOLINE CHLORIDE 200 MG/10 ML VIAL IV ONE (10:32)
[2022-03-12] MEDS ORDERED: LACTATED RINGERS 1,000 ML IV ONE (10:37)
[2022-03-12] MEDS ORDERED: SODIUM CHLORIDE 0.9% 100 ML with ceFAZolin 2,000 MG IV ONE ×2 (10:52)
[2022-03-12] MEDS ORDERED: IOPAMIDOL-370 50ML BTL IRRIGATION ONE (11:20)
[2022-03-12] MEDS ORDERED: DIPHENOX-ATROP 2.5-0.025 MG 1 EACH TAB PO PRN (12:08)
[2022-03-12] MEDS ORDERED: RUXOLITINIB PHOSPHATE 5 MG PO SCH (12:15)
[2022-03-12] MEDS ORDERED: NON FORMULARY DRUG (Super B Complex 1 TAB) PO SCH (12:15)
--- NOTE | 2022-03-12 12:30 | P.OP ---
Date of Procedure: 03/12/22 Preoperative Diagnosis: Left renal calculus, left ureteral calculus Postoperative Diagnosis: Left renal calculus, left ureteral calculus, urethral stricture Procedure(s) Performed: Cystoscopy, direct visual internal urethrotomy (DVIU), left retrograde pyel ogram, left ureteroscopy with Holmium laser lithotripsy and stone basketing, left ureteral stent insertion Anesthesia: EDINA Surgeon: Horace Rolon Estimated Blood Loss (ml): 5 IV fluids (ml): 500 Pathology: none sent Condition: stable Disposition: PACU Indications for Procedure: The patient is an 82-year-old white male with a history of calcium oxalate urolithiasis. He was treated in 2017 for prostate cancer, receiving IMRT along with 6 months of androgen deprivation therapy. His most recent PSA level on record at [facility] was 0.2 in 2019. In August 2018, he underwent ureteroscopy with laser lithotripsy to treat a 5 mm left distal ureteral calculus. He now presents with left-sided abdominal pain, which she describes as being severe. Onset of pain was last night. CT scan shows evidence of left hydronephrosis due to a 6 mm left distal ureteral calculus, as well as a small left upper pole renal calculus. Operative Findings: 1) bulbous urethral stricture. 2) left distal ureteral calculus, fragmented and removed completely. 3) left upper pole renal calculus, fragmented and removed completely. Description of Procedure: The patient was taken to the operating room and placed in the dorsolithotomy position, with legs supported in Ernie stirrups. The external genitalia was prepped and draped sterilely. The 30 lens was used to introduce the 21-Peruvian Slaughter cystoscopic sheath through the urethra, and a stricture was encountered within the bulbous urethra through which the cystoscope could not be advanced. Therefore, the visual urethrotome was obtained, and the stricture was incised at the 12 o'clock position. The stricture measured approximately 1.5 cm in length, and the incision was carried through the full-thickness of the stricture. The cystoscope was then advanced into the bladder under direct vision. The prostatic urethra showed evidence of mild lateral lobe enlargement. The bladder was examined in its entirety. Both ureteral orifices were normal anatomic location and configuration. No tumors or foreign bodies were seen. Using a 10-Peruvian cone-tipped catheter, a left retrograde pyelogram was performed. The calculus was seen within the left distal ureter as a filling defect. The ureteral orifice was small, and would not accommodate the Slaughter semirigid ureteroscope. Therefore, a 0.035 inch Glidewire was passed through the cystoscope. The Glidewire was used to cannulate the left ureteral orifice, and was then advanced up to the left renal pelvis. A 15-Peruvian, 4 cm balloon dilating catheter was used to dilate the intramural portion of the ureter. Next, the Slaughter semirigid ureteroscope was advanced into the bladder under direct vision. The left ureteral orifice was cannulated, and the ureteroscope was advanced under direct vision, up to the calculus. The 365 micron Holmium laser probe was passed through the ureteroscope, and lithotripsy was performed. After fragmenting the calculus, a 1.9-Peruvian nitinol basket was used to remove all calculus fragments. The ureteroscope was removed, and an 11/13-Peruvian ureteral access catheter was passed over the wire, up to the proximal ureter. The Slaughter flexible ureteroscope was then passed through the ureteral access catheter sheath and advanced up to the left renal pelvis under direct vision. The left upper pole calculus was identified, with a small calculus adjacent to it. The calculi were fragmented, and all calculus fragments were then removed using the nitinol basket. The ureteroscope was withdrawn. There was no evidence of ureteral trauma. The Glidewire was replaced, and backloaded into the cystoscope, which was passed into the bladder. A 26 cm, 4.8-Peruvian double-J ureteral stent was placed over the wire. Proper stent positioning was verified fluoroscopically and endoscopically. The bladder was emptied, and calculus fragments were removed from the bladder prior to removing the cystoscope. The Doran catheter was placed. The patient tolerated the procedure well and was taken to the recovery room in stable condition. Drill Map Report: Procedure Acuity: Urgent Stone Size and Location: 6 mm, left distal ureter Ureteral Dilation: Balloon Dilation Ureteral Access Sheath Used: Yes Stone Sent for Analysis: No All Stones/Fragments Were Removed with a Basket: Yes Complications: No Preoperative Antibiotics Given: Yes Stent Placed: Yes If Stent Placed, Was String Left Attached: No If Stent Placed, When is it to be Removed: 2 weeks
[2022-03-12] MEDS: PANTOPRAZOLE 40 MG TABLET PO SCH (13:18)
[2022-03-12] MEDS: LACTOBACILLUS ACIDOPH & BULGAR 1 EACH PACKET PO SCH (13:19)
[2022-03-12] MEDS: VIT A,C & E-LUTEIN-MINERALS 1 EACH TAB PO SCH ×2 (13:34→21:25)
[2022-03-12] MEDS: ASPIRIN 81 MG PO SCH (13:34)
[2022-03-12] MEDS: CHOLECALCIFEROL 25 MCG (1000 IU) TABLET PO SCH (13:34)
[2022-03-12] MEDS: carvediloL 12.5 MG TAB PO SCH ×2 (13:35→18:01)
[2022-03-12] MEDS: amLODIPine 2.5 MG TAB PO SCH (13:35)
[2022-03-12] MEDS: DICYCLOMINE 20 MG TAB PO SCH ×3 (13:35→21:25)
[2022-03-12] MEDS: LORazepam 0.5 MG TAB PO SCH ×3 (13:41→21:25)
--- NOTE | 2022-03-12 13:53 | P.HPIM ---
History of Present Illness H&P Date: 03/05/22 Chief Complaint: Abdominal pain. Sergey is an 82-year-old white male well-known to the practice. He has a history of multiple medical problems including prostate cancer in 2018, kidney stones, COPD, myelofibrosissteroid dependent, recent C. difficile colitis, Infrarenal abdominal aortic aneurysm, Common iliac artery aneurysms, CKD, kidney stones and a pulmonary nodule. He presented to emergency room with increasing flank pain. CT showed massive thyromegaly, bony changes consistent with fibrosis, cardiac megaly, left-sided hydronephrosis and hydroureter and distal ureteral obstructing calculus that has migrated previously from old exam. It also showed improvement of the large bowel wall thickening. His intractable pain and signs consistent, is admitted for evaluation. Urology consultation with forthcoming. Review of Systems All systems: negative Past Medical History Past Medical History: Cancer, COPD, Hypertension, Myocardial Infarction (SD), Renal Disease, Sleep Apnea/CPAP/BIPAP Additional Past Medical History / Comment(s): Hx anemia, myelofibrosis, g astritis, colitis, abdominal pain/enlarged spleen, CKD, interstitial lung disease, pulmonary fibrosis, PE in 2012-pt cannot recall laterality, cannot tolerate Cpap, hx prostate cancer with radiation treatment 3-5 yrs ago, hx skin cancer with removals, nephrolithiasis, migraines, compression fracture low back, bilateral elbow fractures with surgery, PUD, jaundiced as a child, TAZLINA bilaterally. Last Myocardial Infarction Date:: January 2020 History of Any Multi-Drug Resistant Organisms: None Reported Date of last positivie culture/infection: October 26 2021 Past Surgical History: Heart Catheterization, Hernia Repair, Orthopedic Surgery Additional Past Surgical History / Comment(s): Prostate biopsy, R hip hemiarthroplasty, L hand partial amp of 2 fingers, L knee ACL repair, R knee arthroscopy, bilateral total elbow replacements per pt, bilateral cataract removals, L inguinal hernia repair, cardiac caths X2, EGD, colonoscopy, skin cancer removals, left ureteroscopy with laser lithotripsy. Past Anesthesia/Blood Transfusion Reactions: No Reported Reaction Date of Last Stent Placement:: January 2020. Past Psychological History: Anxiety, Depression Smoking Status: Former smoker Past Alcohol Use History: None Reported Past Drug Use History: None Reported - Past Family History Brother(s) Family Medical History: Cancer Additional Family Medical History / Comment(s): ONE BROTHER HAD LUNG CA & ANOTHER HAD MELANOMA. Brother just recently last week. Mother Family Medical History: AICD/Pacemaker Father Family Medical History: No Reported History Sister(s) Family Medical History: No Reported History Medications and Allergies Home Medications Medication Instructions Recorded Confirmed Type Pantoprazole Sodium [Protonix] 40 mg PO DAILY 03/08/16 03/12/22 History Vit C/E/Zn/Coppr/Lutein/Zeaxan 1 cap PO BID 12/12/18 03/12/22 History [Preservision Areds 2 Softgel] carvediloL [Coreg*] 12.5 mg PO BID 07/16/21 03/12/22 History Cholecalciferol [Vitamin D3 (25 25 mcg PO DAILY 08/18/21 03/12/22 History Mcg = 1000 Iu)] Super B Complex 1 tab PO DAILY 08/18/21 03/12/22 History Dicyclomine [Bentyl] 20 mg PO QID 01/06/22 03/12/22 History Aspirin 81 mg PO DAILY tab 01/12/22 03/12/22 Rx Acetaminophen Tab [Tylenol Tab] 500 - 1,000 mg PO Q6H PRN 02/23/22 03/12/22 History Atorvastatin [Lipitor] 40 mg PO HS 02/23/22 03/12/22 History HYDROcodone/APAP 5-325MG [[place] 1 tab PO Q6H PRN MDD 2 TABS 02/23/22 03/12/22 History 5-325] LORazepam [Ativan] 0.5 mg PO TID 02/23/22 03/12/22 History amLODIPine [Norvasc] 2.5 mg PO DAILY 02/23/22 03/12/22 History Diphenoxylate HCl/Atropine 1 tab PO Q8H PRN 03/12/22 03/12/22 History [Lomotil 2.5-0.025 mg Tablet] Floranex 1gm Granules 1 packet PO DIRECTED 03/12/22 03/12/22 History Ruxolitinib Phosphate [Jakafi] 5 mg PO DIRECTED 03/12/22 03/12/22 History Allergies Allergy/AdvReac Type Severity Reaction Status Date / Time alprazolam [From Xanax] AdvReac Confusion Verified 03/12/22 11:27 Physical Exam Vitals: Vital Signs Temp Pulse Resp BP Pulse Ox 03/12/22 06:42 81 18 166/86 97 03/12/22 05:18 79 18 131/62 91 L 03/12/22 02:38 90 18 164/77 92 L 03/12/22 01:44 98 F 94 18 182/89 95 Intake and Output 03/11/22 03/12/22 03/12/22 22:59 06:59 14:59 Intake Total 100 Balance 100 Intake: IV 100 Other: Voiding Method Toilet Urinal Weight 68.039 kg 68.039 kg GENERAL: Thin and in no acute distress. HEAD: Atraumatic, normocephalic. EYES: Pupils equal round and reactive to light, extraocular movements intact, sclera anicteric, conjunctiva are normal. ENT:nares patent, oropharynx clear without exudates. Moist mucous membranes. NECK: Normal range of motion, supple without lymphadenopathy or JVD, no thyromegaly LUNGS: Breath sounds diminished without wheezes or rales or crackles HEART: Regular rate and rhythm without murmurs, rubs or gallops.S1S2 Normal ABDOMEN: Soft, nontender, normoactive bowel sounds. No guarding, no rebound. large splenomegaly noted EXTREMITIES: Normal range of motion, no pitting or edema. No clubbing or cyanosis. NEUROLOGICAL: Cranial nerves II through XII grossly intact. Normal speech, normal gait. PSYCH: Normal mood, normal affect. SKIN: Warm, Dry, normal turgor, no rashes or lesions noted. Results CBC & Chem 7: 03/12/22 01:54 03/12/22 01:54 Labs: Abnormal Lab Results - Last 24 Hours (Table) 03/12/22 03/12/22 Range/Units 01:54 01:54 RBC 3.89 L (4.30-5.90) m/uL Hgb 10.7 L (13.0-17.5) gm/dL Hct 30.9 L (39.0-53.0) % MCV 79.4 L (80.0-100.0) fL RDW 19.4 H (11.5-15.5) % Sodium 136 L (137-145) mmol/L BUN 34 H (9-20) mg/dL Creatinine 2.21 H (0.66-1.25) mg/dL Glucose 105 H (74-99) mg/dL Total Bilirubin 1.5 H (0.2-1.3) mg/dL Alkaline Phosphatase 206 H (38-126) U/L Total Protein 6.2 L (6.3-8.2) g/dL CT scan - abdomen: report reviewed Thrombosis Risk Factor Assmnt - DVT/VTE Prophylaxis DVT/VTE Prophylaxis: Pharmacologic Prophylaxis ordered, Mechanical Prophylaxis ordered - Choose All That Apply Each Factor Represents 1 point: Abnormal pulmonary function (COPD) Other Risk Factors: Yes Each Risk Factor Represents 2 Points: Major surgery Each Risk Factor Represents 3 Points: Age 75 years or older Other congenital or acquired thrombophilia - If yes, enter type in comment: No Thrombosis Risk Factor Assessment Total Risk Factor Score: 6 Thrombosis Risk Factor Assessment Level: High Risk Assessment and Plan (1) Calculus of ureter Current Visit: Yes Status: Acute Priority: High Code(s): N20.1 - CALCULUS OF URETER SNOMED Code(s): 08268239 (2) Hydronephrosis with renal and ureteral calculous obstruction Current Visit: Yes Status: Acute Code(s): N13.2 - HYDRONEPHROSIS WITH RENAL AND URETERAL CALCULOUS OBSTRUCTION SNOMED Code(s): 024884026 (3) Left ureteral calculus Current Visit: Yes Status: Acute Code(s): N20.1 - CALCULUS OF URETER SNO MED Code(s): 96138340 (4) CKD (chronic kidney disease), stage III Current Visit: No Status: Acute Code(s): N18.30 - CHRONIC KIDNEY DISEASE, STAGE 3 UNSPECIFIED SNOMED Code(s): 918082817 (5) Colitis Current Visit: No Status: Acute Code(s): K52.9 - NONINFECTIVE GASTROE NTERITIS AND COLITIS, UNSPECIFIED SNOMED Code(s): 55192005 (6) Coronary artery disease Current Visit: No Status: Acute Code(s): I25.10 - ATHSCL HEART DISEASE OF [place] CORONARY ARTERY W/O ANG PCTRS SNOMED Code(s): 11452498 (7) Essential (primary) hypertension Current Visit: No Status: Acute Code(s): I10 - ESSENTIAL (PRIMARY) HYPERTENSION SNOMED Code(s): 50508877 (8) H/O myocardial infarction, greater than 8 weeks Current Visit: No Status: Acute Code(s): I25.2 - OLD MYOCARDIAL INFARCTION SNOMED Code(s): 0227164 (9) IPF (idiopathic pulmonary fibrosis) Current Visit: No Status: Acute Code(s): J84.112 - IDIOPATHIC PULMONARY FIBROSIS SNOMED Code(s): 373050993 (10) Immunosuppression Current Visit: No Status: Acute Code(s): D84.9 - IMMUNODEFICIENCY, UNSPECIFIED SNOMED Code(s): 38416502 (11) Interstitial lung disease Current Visit: No Status: Acute Code(s): J84.9 - INTERSTITIAL PULMONARY DISEASE, UNSPECIFIED SNOMED Code(s): 062819525 (12) Mixed hyperlipidemia Current Visit: No Status: Acute Code(s): E78.2 - MIXED HYPERLIPIDEMIA SNOMED Code(s): 802594964 (13) Myelofibrosis Current Visit: No Status: Chronic Priority: Medium Code(s): D75.81 - MYELOFIBROSIS SNOMED Code(s): 40361014 (14) Splenomegaly Current Visit: No Status: Chronic Priority: Medium Code(s): R16.1 - SPLENOMEGALY, NOT ELSEWHERE CLASSIFIED SNOMED Code(s): 38544412 Plan: We will resume his home meds at this time. We'll hold his to caffeine, We had surgical intervention for his stone. Repeat labs in a.m. Control his pain. Be reevaluated in the next 24 hours.
[2022-03-12] MEDS ORDERED: BENZOCAINE/MENTHOL LOZENG 1 EACH LOZENGE MUCOUS MEM PRN (16:12)
[2022-03-12] MEDS ORDERED: ATORVASTATIN 40 MG TAB PO SCH (21:00)
--- NOTE | 2022-03-12 22:46 | FL ---
EXAMINATION TYPE: FL urography retrograde DATE OF EXAM: 03/12/2022 CLINICAL HISTORY: Kidney stone. TECHNIQUE: Fluoroscopy. COMPARISON: Same day CT FINDINGS: Fluoroscopic guidance was provided during kidney stone treatment procedure performed by Dr Sandeep Rolon. A total of 1.06 minutes of fluoroscopic time was utilized during the procedure and 7 spot images are acquired. Please refer to procedure note for further details. IMPRESSION: As Above.
[2022-03-12] MEDS: HYDROcodone/APAP 5-325MG 1 EACH TAB PO PRN (22:55)
[2022-03-13] MEDS: SODIUM CHLORIDE 0.9% 1,000 ML IV SCH ×2 (03:24→12:36)
[2022-03-13 05:08] VITALS: BP 129/54
[2022-03-13] MEDS: LORazepam 0.5 MG TAB PO SCH ×2 (08:06→16:41)
[2022-03-13] MEDS: DICYCLOMINE 20 MG TAB PO SCH ×2 (08:06→12:28)
[2022-03-13] MEDS: CHOLECALCIFEROL 25 MCG (1000 IU) TABLET PO SCH (08:06)
[2022-03-13] MEDS: ASPIRIN 81 MG PO SCH (08:06)
[2022-03-13] MEDS: PANTOPRAZOLE 40 MG TABLET PO SCH (08:06)
[2022-03-13] MEDS: HYDROcodone/APAP 5-325MG 1 EACH TAB PO PRN (08:06)
[2022-03-13] MEDS: LACTOBACILLUS ACIDOPH & BULGAR 1 EACH PACKET PO SCH (08:06)
[2022-03-13] MEDS: carvediloL 12.5 MG TAB PO SCH ×2 (08:06→16:41)
[2022-03-13] MEDS: VIT A,C & E-LUTEIN-MINERALS 1 EACH TAB PO SCH (08:07)
[2022-03-13] MEDS: amLODIPine 2.5 MG TAB PO SCH (08:07)
[2022-03-13] MEDS ORDERED: ACETAMINOPHEN TAB 325 MG TAB PO PRN (09:05)
--- NOTE | 2022-03-13 09:26 | P.PN ---
Subjective Progress Note Date: 03/13/22 The patient is an 82-year-old white male with a history of urolithiasis. He was treated in 2018 for prostate cancer, receiving IMRT along with 6 months of androgen deprivation therapy. His most recent PSA level on record at [facility] was 0.2 in 2019. In August 2018, he underwent ureteroscopy with laser lithotripsy to treat a 5 mm left distal ureteral calculus. He presented to the on 03/12/22 with severe left-sided abdominal pain. CT scan shows evidence of left hydronephrosis due to a 6 mm left distal ureteral calculus. He went to the OR with Dr. Rolon and was found to have a bulbous urethral stricture. He underwent a cystoscopy, direct visual internal urethrotomy (DVIU), left retrog rade pyelogram, left ureteroscopy with Holmium laser lithotripsy and stone basketing, left ureteral stent insertion. doing well this morning, denies any flank pain . Tolerating a diet without any nausea or vomiting Objective - Vital Signs Vital signs: Vital Signs Temp 97.4 F L 03/13/22 05:00 Pulse 76 03/13/22 05:00 Resp 16 03/13/22 05:00 BP 129/54 03/13/22 05:00 Pulse Ox 90 L 03/13/22 05:00 FiO2 Intake & Output 03/12/22 03/13/22 03/13/22 18:59 06:59 18:59 Intake Total 650 Output Total 455 1600 Balance 195 -1600 Weight 68.039 kg Intake: IV 650 Output: Urine 450 1600 Estimated Blood Loss 5 Other: Voiding Method Toilet Indwelling Catheter Indwelling Catheter Urinal - Exam General: Well developed, well nourished. No acute distress. HEENT: Head is atraumatic, normocephalic. Lungs: Respirations even and nonlabored. On RA Abdomen/GI: Soft. No abdominal tenderness. : Doran catheter present draining blood tinged urine Vascular: No peripheral edema Skin: Warm and dry Neurologic: Awake, alert and oriented times 3. CN II-XII grossly intact. No focal deficits. Psychiatric: Appropriate mood and affect. - Labs CBC & Chem 7: 03/13/22 06:50 03/13/22 06:50 Assessment and Plan Assessment: The patient is POD #1 is afebrile, on RA, and vitals are stable. He reports generalized weakness and believes the pain medication may be contributing. He was encouraged to ambulate with assistance. He reports eating ok and denies any nausea. Doran catheter in place with hematuria noted. This is an expected post- op finding. The patient is stable to be dischaged from our standpoint. Plan: - Tylenol for pain - Increase activity - Ok to discharge from a urologic standpoint - Do not remove Doran catheter - Follow up with Dr. Rolon in 3 days for Doran catheter removal Impression and plan of care have been directed as dictated by the signing physician. Gabbie Jain nurse practitioner acting as scribe for signing physician. Gabbie Jain [facility]- Palliative Care/Urology Spectralink [phone] Email: [email or web address] I personally performed and participated in the history, physical, the decision making, I agree with the assessment and plan of COVERING AND LINING SUPERVISOR
[2022-03-13 10:55] LABS: African American GFR (CKD) 26.9 (60.0-200.0); Albumin 3.6 g/dL (3.8-4.9); Albumin/Globulin Ratio 1.89 (1.60-3.17); BUN/Creat Ratio 11.4 Ratio (12.00-20.00); Blood Urea Nitrogen 28.5 mg/dL (9.0-27.0); Calcium 8.6 mg/dL (8.7-10.3); Globulin 1.9 g/dL (1.6-3.3); Magnesium 1.8 mg/dL (1.5-2.4); Non-African American GFR(CKD) 23.2 (60.0-200.0); Phosphorus 4.3 mg/dL (2.4-5.1); Potassium 4.5 mmol/L (3.5-5.5); Total Bilirubin 0.9 mg/dL (0.30-1.20); Total Protein 5.5 g/dL (6.2-8.2)
[2022-03-13 11:17] LABS: Basophils # (A) 0.15 X 10*3/uL (0.00-0.10); Basophils % (A) 1.5 %; HCT 32.7 % (39.6-50.0); HGB 9.8 g/dL (13.0-17.0); Immature Grans, Automated 3.7 %; Lymphocytes # (A) 1.09 X 10*3/uL (0.90-5.00); Lymphocytes % (A) 11.2 %; MCH 25.9 pg (27.0-32.0); MCV 86.5 fL (80.0-97.0); Monocytes # (A) 0.77 X 10*3/uL (0.20-1.00); Monocytes % (A) 7.9 %; NRBC Per 100 WBC 1.1 /100 WBCS (0.0-0.0); Neutrophils # (A) 7.26 X 10*3/uL (1.80-7.70); Neutrophils % (A) 74.7 %; Platelet Count 200 X 10*3/uL (140-440); RBC 3.78 X 10*6/uL (4.40-5.60); RDW 21.2 % (11.5-14.5); WBC 9.73 X 10*3/uL (4.50-10.00)
[2022-03-13 12:46] VITALS: RESP 18; TEMP 97.5
[2022-03-13 14:40] VITALS: PULSE 84
--- NOTE | 2022-03-13 15:45 | P.DS ---
Providers Date of admission: 03/12/22 03:10 Expected date of discharge: 03/13/22 Attending physician: Barrington Goyal Consults: 03/12/22 06:14 Consult Physician Routine Consulting Provider: Horace Rolon Consult Reason/Comments: stone Do you want consulting provider notified?: Yes Primary care physician: [facility] Course: Final Diagnoses: (1) acute hypoxic respiratory failure secondary to COPD Calculus of ureter Current Visit: Yes Status: Acute Priority: High Code(s): N20.1 - CALCULUS OF URETER SNOMED Code(s): 55857704 (2) Hydronephrosis with renal and ureteral calculous obstruction, status post cystoscopy,DVIU, left retrograde pyelogram, left ureteroscopy with laser lithotripsy, stone basketing, left ureteral stent insertion Current Visit: Yes Status: Acute Code(s): N13.2 - HYDRONEPHROSIS WITH RENAL AND URETERAL CALCULOUS OBSTRUCTION SNOMED Code(s): 761857184 (3) Left ureteral calculus Current Visit: Yes Status: Acute Code(s): N20.1 - CALCULUS OF URETER SNOMED Code(s): 68970157 (4) CKD (chronic kidney disease), stage III Current Visit: No Status: Acute Code(s): N18.30 - CHRONIC KIDNEY DISEASE, STAGE 3 UNSPECIFIED SNOMED Code(s): 649953021 (5) Colitis Current Visit: No Status: Acute Code(s): K52.9 - NONINFECTIVE GASTROENTERITIS AND COLITIS, UNSPECIFIED SNOMED Code(s): 49797931 (6) Coronary artery disease Current Visit: No Status: Acute Code(s): I25.10 - ATHSCL HEART DISEASE OF [place] CORONARY ARTERY W/O ANG PCTRS SNOMED Code(s): 99182796 (7) Essential (primary) hypertension Current Visit: No Status: Acute Code(s): I10 - ESSENTIAL (PRIMARY) HYPERTENSION SNOMED Code(s): 23984480 (8) H/O myocardial infarction, greater than 8 weeks Current Visit: No Status: Acute Code(s): I25.2 - OLD MYOCARDIAL INFARCTION SNOMED Code(s): 0917212 (9) IPF (idiopathic pulmonary fibrosis) Current Visit: No Status: Acute Code(s): J84.112 - IDIOPATHIC PULMONARY FIBROSIS SNOMED Code(s): 824199209 (10) Immunosuppression Current Visit: No Status: Acute Code(s): D84.9 - IMMUNODEFICIENCY, UNSPECIFIED SNOMED Code(s): 79885573 (11) Interstitial lung disease Current Visit: No Status: Acute Code(s): J84.9 - INTERSTITIAL PULMONARY DISEASE, UNSPECIFIED SNOMED Code(s): 158276855 (12) Mixed hyperlipidemia Current Visit: No Status: Acute Code(s): E78.2 - MIXED HYPERLIPIDEMIA SNOMED Code(s): 395902597 (13) Myelofibrosis Current Visit: No Status: Chronic Priority: Medium Code(s): D75.81 - MYELOFIBROSIS SNOMED Code(s): 51975363 (14) Splenomegaly Current Visit: No Status: Chronic Priority: Medium Code(s): R16.1 - SPLENOMEGALY, NOT ELSEWHERE CLASSIFIED SNOMED Code(s): 42600070 Hospital course:Sergey is an 82-year-old white male well-known to the practice. He has a history of multiple medical problems including prostate cancer in 2018, kidney stones, COPD, myelofibrosissteroid dependent, recent C. difficile colitis, Infrarenal abdominal aortic aneurysm, Common iliac artery aneurysms, CKD, kidney stones and a pulmonary nodule. He presented to emergency room with increasing flank pain. CT showed massive thyromegaly, bony changes consistent with fibrosis, cardiac megaly, left-sided hydronephrosis and hydroureter and distal ureteral obstructing calculus that has migrated previously from old exam. It also showed improvement of the large bowel wall thickening. His intractable pain and signs consistent, is admitted for evaluation. Urology consultation with forthcoming. Evaluated by urology, underwent cystoscopy, DVIU, left retrograde pyelogram, left ureteroscopy with laser lithotripsy, stone basketing, left ureteral stent insertion, tolerated procedure well. Cleared by urology for discharge home with Doran catheter. Discussed with case management, patient has a caregiver at home in addition to residential home care. Patient will require 2 L nasal cannula O2 at home secondary to acute hypoxic respiratory failure secondary to COPD, O2 sat on room air after ambulation 81%. Patient will be discharged home today in a stable condition with guarded prognosis. The impression and plan of care has been dictated as directed. : I performed a history and examination of this patient, discussed the same with the dictator. I agree with the dictator's note ,documented as a scribe. Any additional findings or plans will be noted. Patient Condition at Discharge: Stable Plan - Discharge Summary Discharge Rx Participant: Yes New Discharge Prescriptions: Continue Pantoprazole Sodium [Protonix] 40 mg PO DAILY Vit C/E/Zn/Coppr/Lutein/Zeaxan [Preservision Areds 2 Softgel] 1 cap PO BID Super B Complex 1 tab PO DAILY Dicyclomine [Bentyl] 20 mg PO QID Aspirin 81 mg PO DAILY tab LORazepam [Ativan] 0.5 mg PO TID HYDROcodone/APAP 5-325MG [[place] 5-325] 1 tab PO Q6H PRN MDD 2 TABS PRN Reason: Pain Acetaminophen Tab [Tylenol] 500 - 1,000 mg PO Q6H PRN PRN Reason: Pain Ruxolitinib Phosphate [Jakafi] 5 mg PO DIRECTED carvediloL [Coreg*] 12.5 mg PO BID Cholecalciferol [Vitamin D3 (25 Mcg = 1000 Iu)] 25 mcg PO DAILY Atorvastatin [Lipitor] 40 mg PO HS amLODIPine [Norvasc] 2.5 mg PO DAILY Floranex 1gm Granules 1 packet PO DIRECTED Diphenoxylate HCl/Atropine [Lomotil 2.5-0.025 mg Tablet] 1 tab PO Q8H PRN PRN Reason: Diarrhea Discharge Medication List Pantoprazole Sodium [Protonix] 40 mg PO DAILY 03/08/16 [History] Vit C/E/Zn/Coppr/Lutein/Zeaxan [Preservision Areds 2 Softgel] 1 cap PO BID 12/12/18 [History] carvediloL [Coreg*] 12.5 mg PO BID 07/16/21 [History] Cholecalciferol [Vitamin D3 (25 Mcg = 1000 Iu)] 25 mcg PO DAILY 08/18/21 [History] Super B Complex 1 tab PO DAILY 08/18/21 [History] Dicyclomine [Bentyl] 20 mg PO QID 01/06/22 [History] Aspirin 81 mg PO DAILY tab 01/12/22 [Rx] Acetaminophen Tab [Tylenol] 500 - 1,000 mg PO Q6H PRN 02/23/22 [History] Atorvastatin [Lipitor] 40 mg PO HS 02/23/22 [History] HYDROcodone/APAP 5-325MG [[place] 5-325] 1 tab PO Q6H PRN MDD 2 TABS 02/23/22 [History] LORazepam [Ativan] 0.5 mg PO TID 02/23/22 [History] amLODIPine [Norvasc] 2.5 mg PO DAILY 02/23/22 [History] Diphenoxylate HCl/Atropine [Lomotil 2.5-0.025 mg Tablet] 1 tab PO Q8H PRN 03/12/22 [History] Floranex 1gm Granules 1 packet PO DIRECTED 03/12/22 [History] Ruxolitinib Phosphate [Jakafi] 5 mg PO DIRECTED 03/12/22 [History] Follow up Appointment(s)/Referral(s): Horace Rolon MD [STAFF PHYSICIAN] - 3 Days (Doran catheter removal.Office will call to schedule appt,date and time.) Barrington Goyal Jr, [Primary Care Provider] - 03/20/22 11:45 am Residential Home,[facility] [NON-STAFF] - 1 Week Activity/Diet/Wound Care/Special Instructions: Patient is to be discharged home with Doran catheter. Follow up with Dr. Rolon later this week for catheter removal. O2 sat on room air after ambulation pending:
== END 2022-03-13 17:39 | disposition home or self-care (01) | DRG 987 ==
LOC: EC 01:28 → 5NMEDONC 03:10
PROVIDERS: ADMIT Family Medicine; ATTEND Family Medicine
PROC: 0T778DZ Dilation of Left Ureter with Intraluminal Device, Via Natural or Artificial Opening Endoscopic (ICD-10-PCS; principal; 2022-03-12 10:30)
PROC: BT1F1ZZ Fluoroscopy of Left Kidney, Ureter and Bladder using Low Osmolar Contrast (ICD-10-PCS; 2022-03-12 10:30)
PROC: 0TC78ZZ Extirpation of Matter from Left Ureter, Via Natural or Artificial Opening Endoscopic (ICD-10-PCS; 2022-03-12 10:30)
DX: J44.0 Chronic obstructive pulmonary disease with (acute) lower respiratory infection (principal); J96.01 Acute respiratory failure with hypoxia; N13.2 Hydronephrosis with renal and ureteral calculous obstruction; D84.9 Immunodeficiency, unspecified; D75.81 Myelofibrosis; J90 Pleural effusion, not elsewhere classified; J84.112 Idiopathic pulmonary fibrosis; E78.2 Mixed hyperlipidemia; F32.A Depression, unspecified; F41.9 Anxiety disorder, unspecified; I12.9 Hypertensive chronic kidney disease with stage 1 through stage 4 chronic kidney disease, or unspecified chronic kidney disease; K52.9 Noninfective gastroenteritis and colitis, unspecified; N18.30 Chronic kidney disease, stage 3 unspecified; N35.912 Unspecified bulbous urethral stricture, male; R16.1 Splenomegaly, not elsewhere classified; I25.10 Atherosclerotic heart disease of native coronary artery without angina pectoris; D64.9 Anemia, unspecified; G43.909 Migraine, unspecified, not intractable, without status migrainosus; I25.2 Old myocardial infarction; Z79.52 Long term (current) use of systemic steroids; Z87.19 Personal history of other diseases of the digestive system; Z79.82 Long term (current) use of aspirin; Z79.899 Other long term (current) drug therapy; Z85.46 Personal history of malignant neoplasm of prostate; Z85.828 Personal history of other malignant neoplasm of skin; Z86.711 Personal history of pulmonary embolism; Z87.442 Personal history of urinary calculi; Z87.891 Personal history of nicotine dependence; Z88.8 Allergy status to other drugs, medicaments and biological substances
CPT/HCPCS: 36415; 74176; 74420; 80053; 82150; 83605; 83690; 83735; 84100; 85025; 96361; 96374; 96375; 96376; 99285

== ENCOUNTER → 2022-11-01 | Outpatient (CLI) | payer MEDICARE ==
[2022-11-01 11:24] LABS: ALT 27 U/L (4-49); AST 34 U/L (17-59); African American GFR (CKD) 31 (>60 ml/min/1.73 sqM); Albumin 3.9 g/dL (3.5-5.0); Albumin/Globulin Ratio 1.3; Alkaline Phosphatase 179 U/L (38-126); Anion Gap 8 mmol/L; Blood Urea Nitrogen 32 mg/dL (9-20); Calcium 8.8 mg/dL (8.4-10.2); Carbon Dioxide 26 mmol/L (22-30); Chloride 104 mmol/L (98-107); Globulin 2.9 g/dL; Glucose 102 mg/dL (74-99); Non-African American GFR(CKD) 27 (>60 ml/min/1.73 sqM); Potassium 4.7 mmol/L (3.5-5.1); Sodium 138 mmol/L (137-145); Total Bilirubin 1.9 mg/dL (0.2-1.3); Total Protein 6.8 g/dL (6.3-8.2)
[2022-11-01 11:41] LABS: Anisocytosis Slight; HCT 34.3 % (39.0-53.0); HGB 11.3 gm/dL (13.0-17.5); MCH 26.6 pg (25.0-35.0); MCHC 32.9 g/dL (31.0-37.0); MCV 80.8 fL (80.0-100.0); Mean Platelet Volume 11.8; Microcytosis Slight; Platelet Count 182 k/uL (150-450); Poikilocytosis Slight; RBC 4.24 m/uL (4.30-5.90); RDW 19.3 % (11.5-15.5); WBC 13.4 k/uL (3.8-10.6)
--- NOTE | 2022-11-01 12:21 | CT ---
EXAMINATION TYPE: CT abdomen pelvis wo con DATE OF EXAM: 11/01/2022 COMPARISON: 03/12/2022 HISTORY: flank pain CT DLP: 457.7 mGycm Automated exposure control for dose reduction was used. TECHNIQUE: Helical acquisition of images was performed from the lung bases through the pelvis. FINDINGS: LUNG BASES: Diffuse emphysematous changes compatible with centrilobular emphysema. There is basilar b ronchiectasis. Subsegmental atelectasis. Tiny calcified granuloma near the LEFT HEMIDIAPHRAGM. THERE IS CORONARY ARTERY CALCIFICATION, CARDIOMEGALY. LIVER/GB: There is homogeneous. No focal masses. Cholecystectomy. Liver does measure approximately 20 cm compatible with hepatomegaly. PANCREAS: No significant abnormality is seen. SPLEEN: Marked splenomegaly measuring 21 cm. ADRENALS: No significant abnormality is seen. KIDNEYS: Right kidney is atrophic with a 4 mm lower pole calculus. There are no left renal calculi. N o hydronephrosis. Calcifications centrally within the right kidney likely vascular. URINARY BLADDER: Limited by incomplete distention. ADENOPATHY: There is soft tissue stranding in the retroperitoneum and axial image 65 - 66. This is n onspecific and measures in short axis VII mm stents. Present on prior exam. OSSEOUS STRUCTURES: Hypertrophic and degenerative changes spine. There is severe multilevel degenera tive disc disease with retrolisthesis L2-L3. Bone marrow is heterogeneous. BOWEL: Assessment of the pelvic bowel loops are limited due to artifact from the right hip prosthese s. No obvious obstruction. Appendix not visualized. Cannot exclude mild wall thickening of the right colon. OTHER: Abdominal aorta demonstrates aneurysmal dilation measuring a maximal dimension 3.6 cm and ther e is ectasia of the proximal bilateral common iliac artery with aneurysmal dilation. 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 Surgical clips in the pelvis noted. IMPRESSION: 1. MASSIVE SPLENOMEGALY MEASURING 21 CM. 2. NONOBSTRUCTING 4 MM LOWER POLE RIGHT RENAL CALCULUS WITH NO EVIDENCE OF HYDRONEPHROSIS ON THE RIGH T. 3. MILD LEFT-SIDED HYDRONEPHROSIS. NO CALCULUS IDENTIFIED. CORRELATE FOR RECENTLY PASSED STONE. 4. ABNORMAL SOFT TISSUE ATTENUATION IN THE LEFT RETROPERITONEUM STABLE FROM PRIOR EXAM. THE FINDING I S NONSPECIFIC COULD BE POSTINFLAMMATORY OR RELATED BORDERLINE ADENOPATHY. 5. INFRARENAL ABDOMINAL AORTIC ANEURYSM MEASURING 3.6 CM IN GREATEST DIMENSION. BILATERAL PROXIMAL CO MMON ILIAC ARTERY ANEURYSMS ARE STABLE WITH A CHRONIC LEFT COMMON ILIAC ARTERY DISSECTION. 6. THE BONE MARROW IS DIFFUSELY HETEROGENEOUS CORRELATE FOR UNDERLYING NEOPLASM OR BLOOD DYSCRASIA. R ECOMMEND FOLLOW-UP BONE SCAN. 7 PROSTATOMEGALY MEASURING 5.8 CM. 8. NONSPECIFIC RIGHT COLONIC WALL THICKENING CORRELATE WITH DIRECT VISUALIZATION CLINICALLY ABI AGUILERA. NO INFLAMMATORY CHANGES. A [place] level critical message alert has been initiated for Barrington Goyal Jr, DO via the [facility] Critical Results System on 11/01/2022 12:16 PM. This message alert has been sent to Barrington alex Jr, DO via the preferences provided by the clinician for the receipt of Radiology Critical Findin gs. Message ID [id number].
[2022-11-01 13:31] LABS: Band Neutrophils % 3 %; Basophils # (M) 0.13 k/uL (0-0.2); Lymphocytes # (M) 0.67 k/uL (1.0-4.8); Metamyelocytes # (M) 0.13 k/uL (0); Metamyelocytes % 1 %; Monocytes # (M) 1.07 k/uL (0-1.0); Myelocytes # (M) 0.13 k/uL (0); Myelocytes % 1 %; Neutrophils % (M) 83 %; Nucleated Red Blood Cells 0 /100 WBC (0-0); Total Cells Counted 200
== END | disposition home or self-care (01) ==
LOC: RADCTMAIN 09:35
PROVIDERS: ATTEND Family Medicine
DX: I71.43 Infrarenal abdominal aortic aneurysm, without rupture (principal); I72.3 Aneurysm of iliac artery; M79.89 Other specified soft tissue disorders; N13.2 Hydronephrosis with renal and ureteral calculous obstruction; N40.0 Benign prostatic hyperplasia without lower urinary tract symptoms; K63.89 Other specified diseases of intestine; R31.9 Hematuria, unspecified
CPT/HCPCS: 74176; 80053; 85025

== ENCOUNTER 2023-05-03 15:49 | Emergency (ER) | payer MEDICARE ==
[2023-05-03] MEDS ORDERED: SODIUM CHLORIDE 0.9% 500 ML 500 ML IV STA (16:09)
[2023-05-03] MEDS ORDERED: ALBUTEROL NEBULIZED 2.5 MG/3 ML INHALATION STA (16:09)
[2023-05-03] MEDS ORDERED: IPRATROPIUM 0.5 MG/2.5 ML NEBU INHALATION STA (16:09)
[2023-05-03] MEDS ORDERED: methylPREDNISolone SOD SUCCI 125 MG/2 ML VIAL IV STA (16:12)
--- NOTE | 2023-05-03 16:20 | ED ---
General Adult HPI - General Chief complaint: Shortness of Breath Stated complaint: sob Time Seen by Provider: 05/03/23 16:03 Source: patient, EMS, RN notes reviewed, old records reviewed Mode of arrival: EMS Limitations: no limitations - History of Present Illness Initial comments: 83-year-old male diagnosed with coronavirus 6 days ago presents with mild cough and mild dyspnea. Patient denies fever. Denies central chest pain. Denies lower extremity pain or swelling. Denies abdominal pain nausea vomiting or diarrhea. - Related Data Home Medications Medication Instructions Recorded Confirmed Pantoprazole Sodium [Protonix] 40 mg PO DAILY@0800 03/08/16 05/03/23 Vit C/E/Zn/Coppr/Lutein/Zeaxan 1 cap PO BID 12/12/18 05/03/23 [Preservision Areds 2 Softgel] carvediloL [Coreg*] 12.5 mg PO BID@0800,1800 07/16/21 05/03/23 Cholecalciferol [Vitamin D3 (25 25 mcg PO DAILY@1200 08/18/21 05/03/23 Mcg = 1000 Iu)] Dicyclomine [Bentyl] 20 mg PO DAILY@1800 01/06/22 05/03/23 Aspirin 81 mg PO DAILY@1200 05/03/23 05/03/23 Benzonatate [Tessalon Perles] 100 mg PO TID PRN 05/03/23 05/03/23 LORazepam [Ativan] 1 mg PO BID 05/03/23 05/03/23 Vitamin B Complex 1 cap PO HS 05/03/23 05/03/23 amLODIPine [Norvasc] 5 mg PO BID@0800,1800 05/03/23 05/03/23 cloNIDine 0.3 MG/24HR PATCH 1 patch TRANSDERM CANTRELL 05/03/23 05/03/23 [Catapres-Tts 0.3MG Patch] Previous Rx's Medication Instructions Recorded Albuterol Inhaler [Ventolin Hfa 1 - 2 puff INHALATION Q4HR PRN #1 05/03/23 Inhaler] each predniSONE 50 mg PO DAILY #5 tab 05/03/23 Allergies Allergy/AdvReac Type Severity Reaction Status Date / Time alprazolam [From Xanax] AdvReac Confusion Verified 05/03/23 17:48 Review of Systems ROS Statement: Those systems with pertinent positive or pertinent negative responses have been documented in the HPI. ROS Other: All systems not noted in ROS Statement are negative. Past Medical History Past Medical History: Cancer, COPD, Hypertension, Myocardial Infarction (NC), Renal Disease, Sleep Apnea/CPAP/BIPAP Additional Past Medical History / Comment(s): Hx anemia, myelofibrosis, gastritis, colitis, abdominal pain/enlarged spleen, CKD, interstitial lung disease, pulmonary fibrosis, PE in 2012-pt cannot recall laterality, cannot tolerate Cpap, hx prostate cancer with radiation treatment 3-5 yrs ago, hx skin cancer with removals, nephrolithiasis, migraines, compression fracture low back, bilateral elbow fractures with surgery, PUD, jaundiced as a child, SOBOBA bilaterally. Last Myocardial Infarction Date:: January 2020 History of Any Multi-Drug Resistant Organisms: None Reported Date of last positivie culture/infection: October 26 2021 Past Surgical History: Heart Catheterization, Hernia Repair, Orthopedic Surgery Additional Past Surgical History / Comment(s): Prostate biopsy, R hip hemiarthroplasty, L hand partial amp of 2 fingers, L knee ACL repair, R knee arthroscopy, bilateral total elbow replacements per pt, bilateral cataract removals, L inguinal hernia repair, cardiac caths X2, EGD, colonoscopy, skin cancer removals, left ureteroscopy with laser lithotripsy. Past Anesthesia/Blood Transfusion Reactions: No Reported Reaction Date of Last Stent Placement:: January 2020. Past Psychological History: Anxiety, Depression Smoking Status: Former smoker Past Alcohol Use History: None Reported Past Drug Use History: None Reported - Past Family History Brother(s) Family Medical History: Cancer Additional Family Medical History / Comment(s): ONE BROTHER HAD LUNG CA & ANOTHER HAD MELANOMA. Brother just recently last week. Mother Family Medical History: AICD/Pacemaker Father Family Medical History: No Reported History Sister(s) Family Medical History: No Reported History General Exam Limitations: no limitations General appearance: alert, in no apparent distress Head exam: Present: atraumatic, normocephalic Eye exam: Present: normal appearance, PERRL ENT exam: Present: normal exam Neck exam: Present: normal inspection. Absent: tenderness, meningismus Respiratory exam: Present: wheezes. Absent: respiratory distress Cardiovascular Exam: Present: regular rate, normal rhythm GI/Abdominal exam: Present: soft. Absent: distended, tenderness Extremities exam: Present: normal inspection, normal capillary refill. Absent: joint swelling, calf tenderness Neurological exam: Present: alert, oriented X3 Psychiatric exam: Present: normal affect, normal mood Course Vital Signs 05/03/23 05/03/23 16:03 17:06 Temperature 97.7 F Pulse Rate 79 77 Respiratory 18 18 Rate Blood Pressure 151/76 129/57 O2 Sat by Pulse 98 97 Oximetry Medical Decision Making - Medical Decision Making Was pt. sent in by a medical professional or institution (, PA, PERSONAL FITNESS TRAINER, urgent care, hospital, or care home...) When possible be specific @ -No Did you speak to anyone other than the patient for history (EMS, parent, family, police, friend...)? What history was obtained from this source @ -No Did you review nursing and triage notes (agree or disagree)? Why? @ -I reviewed and agree with nursing and triage notes Were old charts reviewed (outside hosp., previous admission, EMS record, old EKG, old radiological studies, urgent care reports/EKG's, care home records)? Report findings @ -No old charts were reviewed Differential Diagnosis (chest pain, altered mental status, abdominal pain women, abdominal pain men, vaginal bleeding, weakness, fever, dyspnea, syncope, headache, dizziness, GI bleed, back pain, seizure, CVA, palpatations, mental health, musculoskeletal)? @ Differential Dyspnea: Coronary syndrome, arrhythmia, tamponade, asthma, COPD, pulmonary embolism, pneumonia, pneumothorax, pulmonary effusion, anaphylaxis, diabetic ketoacidosis, flailed chest, pulmonary contusion, diaphragmatic rupture, anemia, neuromuscular, this is not meant to be an all-inclusive list. EKG interpreted by me (3pts min.). @ EKG: No complex regular rhythm at a rate of 78, VT interval 147, QRS duration 94, QTC [address] segment elevation. X-rays interpreted by me (1pt min.). @ -Chest x-ray unremarkable, no focal pneumonia CT interpreted by me (1pt min.). @ -None done U/S interpreted by me (1pt. min.). @ -None done What testing was considered but not performed or refused? (CT, X-rays, U/S, labs)? Why? @ -None What meds were considered but not given or refused? Why? @ -None Did you discuss the management of the patient with other professionals (professionals i.e. DrSandeep, PA, PERSONAL FITNESS TRAINER, lab, RT, psych nurse, social science research assistant, automotive welder, teacher, personnel officer, family service caseworker)? Give summary @ -[Case discussed with Dr. Hays who is familiar with this patient, agreeable with discharge and outpatient follow-up Was smoking cessation discussed for >3mins.? @ -No Was critical care preformed (if so, how long)? @ -No Were there social determinants of health that impacted care today? How? (Homelessness, low income, unemployed, alcoholism, drug addiction, transportatio n, low edu. Level, literacy, decrease access to med. care, senior care, rehab)? @ -No Was there de-escalation of care discussed even if they declined (Discuss DNR or withdrawal of care, Hospice)? DNR status @ -No What co-morbidities impacted this encounter? (DM, HTN, Smoking, COPD, CAD, Cancer, CVA, ARF, Chemo, Hep., AIDS, mental health diagnosis, sleep apnea, morbid obesity)? @ -[COPD Was patient admitted / discharged? Hospital course, mention meds given and route, prescriptions, significant lab abnormalities, going to OR and other pertinent info. @ -[83-year-old male presenting with cough, recent diagnosis of coronavirus. Patient has been symptomatic for the past 6 days. He is given albuterol, IV fluids and IV steroids in the emergency department. Patient afebrile with stable chronic lab abnormalities including mild anemia, creatinine is 2.9 which is slightly above baseline which ranges roughly around 2.5. Patient remains stable without hypoxia. He is stable for discharge with return parameters at this time. Undiagnosed new problem with uncertain prognosis? @ -No Drug Therapy requiring intensive monitoring for toxicity (Heparin, Nitro, Insulin, Cardizem)? @ -No Were any procedures done? @ -No Diagnosis/symptom? @ -COPD secondary to coronavirus Acute, or Chronic, or Acute on Chronic? @ Acute Uncomplicated (without systemic symptoms) or Complicated (systemic symptoms)? @ -default Side effects of treatment? @ -No Exacerbation, Progression, or Severe Exacerbation? @ -No Poses a threat to life or bodily function? How? (Chest pain, [place], NC, pneumonia, PE, COPD, DKA, ARF, appy, cholecystitis, CVA, Diverticulitis, Homicidal, Suicidal, threat to staff... and all critical care pts) @ -Moderate risk - Lab Data Result diagrams: 05/03/23 16:16 05/03/23 16:16 Lab Results 05/03/23 05/03/23 05/03/23 Range/Units 16:16 16:16 16:16 WBC 12.9 H (3.8-10.6) k/uL RBC 3.88 L (4.30-5.90) m/uL Hgb 11.0 L (13.0-17.5) gm/dL Hct 31.5 L (39.0-53.0) % MCV 81.2 (80.0-100.0) fL MCH 28.5 (25.0-35.0) pg MCHC 35.1 (31.0-37.0) g/dL RDW 18.7 H (11.5-15.5) % Plt Count 196 (150-450) k/uL MPV 13.1 Neutrophils % 77 % Lymphocytes % 13 % Monocytes % 5 % Eosinophils % 1 % Basophils % 1 % Neutrophils # 9.8 H (1.3-7.7) k/uL Lymphocytes # 1.6 (1.0-4.8) k/uL Monocytes # 0.6 (0-1.0) k/uL Eosinophils # 0.1 (0-0.7) k/uL Basophils # 0.1 (0-0.2) k/uL Manual Slide Review Performed Large Platelets Present Polychromasia Present Poikilocytosis Slight Anisocytosis Slight Microcytosis Slight PT 11.3 (10.0-12.5) sec INR 1.0 (<1.2) APTT 27.9 (22.0-30.0) sec Sodium 139 (137-145) mmol/L Potassium 4.9 (3.5-5.1) mmol/L Chloride 106 (98-107) mmol/L Carbon Dioxide 23 (22-30) mmol/L Anion Gap 10 mmol/L BUN 48 H (9-20) mg/dL Creatinine 2.89 H (0.66-1.25) mg/dL Est GFR (CKD-EPI)AfAm 22 (>60 ml/min/1.73 sqM) Est GFR (CKD-EPI)NonAf 19 (>60 ml/min/1.73 sqM) Glucose 108 H (74-99) mg/dL Plasma Lactic Acid Mateo (0.7-2.0) mmol/L Calcium 8.6 (8.4-10.2) mg/dL Magnesium 1.9 (1.6-2.3) mg/dL Total Bilirubin 1.9 H (0.2-1.3) mg/dL AST 30 (17-59) U/L ALT 22 (4-49) U/L Alkaline Phosphatase 199 H (38-126) U/L Troponin I (0.000-0.034) ng/mL Total Protein 6.5 (6.3-8.2) g/dL Albumin 3.7 (3.5-5.0) g/dL Influenza Type A (PCR) (Not Detectd) Influenza Type B (PCR) (Not Detectd) RSV (PCR) (Not Detectd) SARS-CoV-2 (PCR) (Not Detectd) 05/03/23 05/03/23 05/03/23 Range/Units 16:16 16:16 16:16 WBC (3.8-10.6) k/uL RBC (4.30-5.90) m/uL Hgb (13.0-17.5) gm/dL Hct (39.0-53.0) % MCV (80.0-100.0) fL MCH (25.0-35.0) pg MCHC (31.0-37.0) g/dL RDW (11.5-15.5) % Plt Count (150-450) k/uL MPV Neutrophils % % Lymphocytes % % Monocytes % % Eosinophils % % Basophils % % Neutrophils # (1.3-7.7) k/uL Lymphocytes # (1.0-4.8) k/uL Monocytes # (0-1.0) k/uL Eosinophils # (0-0.7) k/uL Basophils # (0-0.2) k/uL Manual Slide Review Large Platelets Polychromasia Poikilocytosis Anisocytosis Microcytosis PT (10.0-12.5) sec INR (<1.2) APTT (22.0-30.0) sec Sodium (137-145) mmol/L Potassium (3.5-5.1) mmol/L Chloride (98-107) mmol/L Carbon Dioxide (22-30) mmol/L Anion Gap mmol/L BUN (9-20) mg/dL Creatinine (0.66-1.25) mg/dL Est GFR (CKD-EPI)AfAm (>60 ml/min/1.73 sqM) Est GFR (CKD-EPI)NonAf (>60 ml/min/1.73 sqM) Glucose (74-99) mg/dL Plasma Lactic Acid Mateo 1.2 (0.7-2.0) mmol/L Calcium (8.4-10.2) mg/dL Magnesium (1.6-2.3) mg/dL Total Bilirubin (0.2-1.3) mg/dL AST (17-59) U/L ALT (4-49) U/L Alkaline Phosphatase (38-126) U/L Troponin I 0.024 (0.000-0.034) ng/mL Total Protein (6.3-8.2) g/dL Albumin (3.5-5.0) g/dL Influenza Type A (PCR) Not Detected (Not Detectd) Influenza Type B (PCR) Not Detected (Not Detectd) RSV (PCR) Not Detected (Not Detectd) SARS-CoV-2 (PCR) Detected A (Not Detectd) Disposition Clinical Impression: Acute exacerbation of chronic obstructive pulmonary disease, COPD (chronic obstructive pulmonary disease), COVID-19 Disposition: HOME SELF-CARE Condition: Fair Instructions (If sedation given, give patient instructions): COVID-19 (Coronavirus Disease 2019) (ED) Prescriptions: predniSONE 50 mg PO DAILY #5 tab Albuterol Inhaler [Ventolin Hfa Inhaler] 1 - 2 puff INHALATION Q4HR PRN #1 each PRN Reason: Shortness Of Breath Is patient prescribed a controlled substance at d/c from ED?: No Referrals: Barrington Goyal Jr, DO [Primary Care Provider] - 1-2 days Time of Disposition: 18:26
[2023-05-03 16:35] VITALS: RESP 18; TEMP 97.7
[2023-05-03 16:43] LABS: Anisocytosis Slight; Basophils # (A) 0.1 k/uL (0-0.2); Basophils % (A) 1 %; Eosinophils # (A) 0.1 k/uL (0-0.7); Eosinophils % (A) 1 %; HCT 31.5 % (39.0-53.0); Lymphocytes # (A) 1.6 k/uL (1.0-4.8); Lymphocytes % (A) 13 %; MCH 28.5 pg (25.0-35.0); MCHC 35.1 g/dL (31.0-37.0); MCV 81.2 fL (80.0-100.0); Mean Platelet Volume 13.1; Microcytosis Slight; Monocytes # (A) 0.6 k/uL (0-1.0); Monocytes % (A) 5 %; Neutrophils # (A) 9.8 k/uL (1.3-7.7); Neutrophils % (A) 77 %; Platelet Count 196 k/uL (150-450); Poikilocytosis Slight; RBC 3.88 m/uL (4.30-5.90); RDW 18.7 % (11.5-15.5); WBC 12.9 k/uL (3.8-10.6)
[2023-05-03 16:52] LABS: Partial Thromboplastin Time 27.9 sec (22.0-30.0); Prothrombin Time 11.3 sec (10.0-12.5)
[2023-05-03 16:53] LABS: ALT 22 U/L (4-49); AST 30 U/L (17-59); African American GFR (CKD) 22 (>60 ml/min/1.73 sqM); Albumin 3.7 g/dL (3.5-5.0); Alkaline Phosphatase 199 U/L (38-126); Anion Gap 10 mmol/L; Blood Urea Nitrogen 48 mg/dL (9-20); Calcium 8.6 mg/dL (8.4-10.2); Carbon Dioxide 23 mmol/L (22-30); Chloride 106 mmol/L (98-107); Glucose 108 mg/dL (74-99); Magnesium 1.9 mg/dL (1.6-2.3); Non-African American GFR(CKD) 19 (>60 ml/min/1.73 sqM); Potassium 4.9 mmol/L (3.5-5.1); Sodium 139 mmol/L (137-145); Total Bilirubin 1.9 mg/dL (0.2-1.3); Total Protein 6.5 g/dL (6.3-8.2)
[2023-05-03 17:20] VITALS: BP 129/57; PULSE 77
[2023-05-03 17:31] LABS: Large Platelets Present
[2023-05-03 17:32] LABS: Polychromasia Present
[2023-05-03] MEDS ORDERED: HYDROmorphone 0.5 MG/0.5 ML SYRINGE IVP STA (17:41)
--- NOTE | 2023-05-03 17:48 | XR ---
EXAMINATION TYPE: XR chest 2V DATE OF EXAM: 05/03/2023 COMPARISON: 02/18/2022 HISTORY: Difficulty breathing TECHNIQUE: Frontal and lateral views of the chest are obtained. FINDINGS: There is mild interstitial changes particularly lung bases essentially unchanged compared to previous consistent with chronic interstitial changes. There is no airspace consolidation. There is no pleura l effusion or pneumothorax. The heart and pulmonary vasculature are normal. The osseous structures ar e intact. IMPRESSION: 1. No acute cardia pulmonary disease. 2. Probable mild chronic interstitial changes in the lung bases.
[2023-05-03] MEDS ORDERED: ALBUTEROL HFA INHALER INHALATION STA (17:50)
== END 2023-05-03 19:36 | disposition home or self-care (01) ==
LOC: EC 15:49
DX: U07.1 COVID-19 (principal); J44.1 Chronic obstructive pulmonary disease with (acute) exacerbation; I12.9 Hypertensive chronic kidney disease with stage 1 through stage 4 chronic kidney disease, or unspecified chronic kidney disease; I25.2 Old myocardial infarction; N18.9 Chronic kidney disease, unspecified; G47.30 Sleep apnea, unspecified; F41.9 Anxiety disorder, unspecified; F32.A Depression, unspecified; Z87.891 Personal history of nicotine dependence; Z79.899 Other long term (current) drug therapy; Z79.82 Long term (current) use of aspirin; Z88.8 Allergy status to other drugs, medicaments and biological substances
CPT/HCPCS: 36415; 94640; 93005; 80053; 83605; 83735; 84484; 85025; 85610; 85730; 87636; 71046; 99285; 96374; 96375; J2930; J1170

== ENCOUNTER → 2023-08-21 | Outpatient (CLI) | payer MEDICARE ==
--- NOTE | 2023-08-21 10:35 | XR ---
EXAMINATION TYPE: XR chest 2V DATE OF EXAM: 08/21/2023 COMPARISON: 05/03/2023 TECHNIQUE: PA and lateral views submitted. HISTORY: Shortness of breath FINDINGS: Underlying COPD with suspicious-appearing 1.8 cm mass in the right upper lobe. There is patchy subseg mental basilar consolidation. Atherosclerotic change of aorta. Diffuse osteopenia and arthropathy of the AC joint.. Heart size normal and no overt failure. Osseous structures demonstrate hypertrophic a nd degenerative changes of the spine. IMPRESSION: 1. Findings suspicious for a 1.8 cm right upper lobe mass. Recommend CT chest to exclude malignancy. 2. COPD with patchy basilar atelectasis favored over pneumonia but should be correlated clinically. A [place] level critical message alert has been initiated for Barrington Goyal Jr, DO via the [facility] Critical Results System on 08/21/2023 10:33 AM. This message alert has been sent to Barrington ortega Jr, DO via the preferences provided by the clinician for the receipt of Radiology Critical Finding s. Message ID [id number].
== END | disposition home or self-care (01) ==
LOC: RADXRMAIN 10:12
PROVIDERS: ATTEND Family Medicine
DX: J44.9 Chronic obstructive pulmonary disease, unspecified (principal); J98.11 Atelectasis; R07.9 Chest pain, unspecified
CPT/HCPCS: 71046

== ENCOUNTER → 2023-08-29 | Outpatient (CLI) | payer MEDICARE ==
--- NOTE | 2023-08-29 14:30 | CT ---
EXAMINATION TYPE: CT chest abdomen wo con DATE OF EXAM: 08/29/2023 COMPARISON: CT chest 12/25/[address] abdomen dated 11/01/2022 HISTORY: lung mass CT DLP: 479.1mGycm Unenhanced CT of the Chest, Abdomen and Pelvis Unenhanced CT of the chest ,abdomen and pelvis is performed. The lack of intravenous contrast limits evaluation of the solid and hollow viscera. Oral contrast: None CT Chest: LUNGS: Right upper lobe pulmonary nodule measuring 2 cm maximal dimension suspicious for malignancy. Correlate with PET/CT. No additional nodules present. Severe emphysematous changes noted greatest wit hin the upper lobes. No pleural effusion or focal consolidation. MEDIASTINUM: Thoracic aorta is of normal caliber. The heart is mildly enlarged. Coronary artery anant cifications seen. No evidence for mediastinal mass or adenopathy. HILAR STRUCTURES: No evidence for mass. No hilar adenopathy is appreciated. OTHER: No significant abnormality. CONTRAST CT ABDOMEN : LIVER/GB: The gallbladder is surgically absent. No space occupying hepatic lesion. Biliary tree is of normal caliber. PANCREAS: No inflammation. No distinct mass. SPLEEN: Severe splenomegaly of 23.4 cm craniocaudal dimension. No lesion seen. ADRENALS: No nodule. No thickening. KIDNEYS/BLADDER: Mild atrophic change right kidney. No hydronephrosis. 3 mm calculus upper pole righ t kidney. No distinct renal mass. BOWEL: Normal appendix. Normal bowel caliber. No inflammation. GENITAL ORGANS: Prostate gland enlargement. LYMPH NODES: No greater than 1cm abdominal or pelvic lymph nodes areappreciated. AORTA: 3.3 cm abdominal aortic aneurysm. OSSEOUS STRUCTURES: Diffuse osseous heterogeneity persists and this could reflect underlying metastat ic disease or blood dyscrasia. OTHER: No significant additional abnormality is seen. IMPRESSION: 1. Suspicious pulmonary nodule right upper lobe. PET/CT is recommended. 2. Massive splenomegaly. 3.Diffuse osseous heterogeneity persists and this could reflect underlying metastatic disease or bloo d dyscrasia. 4. Abdominal aortic aneurysm is stable.
== END | disposition home or self-care (01) ==
LOC: RADCTMAIN 12:57
PROVIDERS: ATTEND Family Medicine
DX: R91.8 Other nonspecific abnormal finding of lung field (principal); R16.1 Splenomegaly, not elsewhere classified; I71.40 Abdominal aortic aneurysm, without rupture, unspecified
CPT/HCPCS: 71250; 74150

== ENCOUNTER → 2023-09-23 | Outpatient (CLI) | payer MEDICARE ==
--- NOTE | 2023-09-23 17:39 | PE ---
EXAMINATION TYPE: PET CT fusion skull to thigh DATE OF EXAM: 09/23/2023 COMPARISON: CT chest 08/29/2023 Prior PET/CT: None at this location HISTORY: Solitary pulmonary nodule TECHNIQUE: Following the intravenous administration of 11.7 mCi of F-18 FDG, whole body images are p erformed from the skull base to the midthigh. Images are reviewed on the computer in the coronal, ax ial, and sagittal planes. Reconstructed rotating images are created on independent workstation and r eviewed on the computer. A localization and attenuation correction CT is performed in conjunction w ith the PET scan. DLP: 388.15 mGycm SCAN: Initial Blood glucose: 95 mg/dL Average Mediastinum SUV: 0.98 Average Liver SUV: 2.8 FINDINGS: NECK: There is a focus radiotracer within the left parotid region, image 22, SUV 5.28. Additional up take is along the inferior left parotid region suspicious for metastatic disease, image 28, medial CANTRELL V 2.73, lateral SUV 3.89. There are additional foci of uptake along the right posterior triangle cerv ical lymph nodes. Example uptake image 41, SUV 8.92, image 48, SUV 10.94, image 53, SUV 7.1. THORAX: There is marked intensity within the right apical nodule with an SUV of 12.44, image 80. ABDOMEN: Marked splenomegaly. At the inferior tip is a focus of radiotracer measuring 4.48, example i mage 198 PELVIS: No suspicious uptake OSSEOUS STRUCTURES: There are scattered areas of increased uptake throughout the axial and appendicul ar skeleton. Underlying metastatic lesions would be difficult to exclude. LOCALIZATION CT: Heterogenous appearance of the osseous structures suggest underlying metastasis. The re is mild prominence of the descending abdominal aorta with an AP diameter of 3.1 cm. This extends i nto the proximal iliac vessels. Dissection within the proximal common iliac vessels may be present. T here is prominence of the right internal and external iliac vessels with a more normal appearance of the left internal and external iliac vessels. COMPARISON: None IMPRESSION: 1. Intense uptake within the right apex compatible with neoplasm. 2. Multiple left parotid region and posterior cervical neck lymphadenopathy suggestive for metastatic disease. 3. Diffuse uptake scattered throughout the osseous structures with corresponding heterogeneity on CT suspicious for metastatic disease. 4. Marked splenomegaly extending into the lower pelvis. At the inferior tip there is hyperintensity s uggesting underlying splenic metastasis. 5. Incidental note made of ectasia of the abdominal aorta and aneurysmal dilatation with possible dis sections within the common iliac vessels.
== END | disposition home or self-care (01) ==
LOC: RADPETMAIN 11:53
PROVIDERS: ATTEND Internal Medicine Critical Care Medicine
DX: R91.8 Other nonspecific abnormal finding of lung field (principal); R59.0 Localized enlarged lymph nodes; R16.1 Splenomegaly, not elsewhere classified; I77.811 Abdominal aortic ectasia
CPT/HCPCS: 78815; A9552

== ENCOUNTER 2023-10-16 09:09 | Day surgery (SDC) | payer MEDICARE ==
[2023-10-16 09:33] VITALS: BP 143/73; PULSE 63; RESP 12; TEMP 97.9
--- NOTE | 2023-10-16 10:42 | US ---
ULTRASOUND GUIDED CORE BIOPSY LEFT NECK LYMPH NODE: CLINICAL HISTORY: Left neck lymph node FINDINGS: The procedure was explained to the patient. The risks, complications, benefits and alternatives were discussed and any questions were answered. Informed consent was obtained. Patient was placed supin e on the ultrasound table and prepped and draped in the usual sterile fashion. Utilizing a 18 gauge needle, two passes were made into the left neck lymph node. Patient was stable throughout the procedure. Pathology is pending. All elements of maximal barrier technique were utilized. IMPRESSION: 1. Successful ultrasound guided core biopsy left neck lymph node.
== END 2023-10-16 10:35 | disposition home or self-care (01) ==
LOC: RADPROMAIN 09:09
PROVIDERS: ATTEND Internal Medicine Critical Care Medicine
DX: C79.2 Secondary malignant neoplasm of skin (principal)
CPT/HCPCS: 38505; 76942; 88305

== ENCOUNTER 2023-11-03 13:26 | Emergency (ER) | payer MEDICARE ==
[2023-11-03 13:34] VITALS: TEMP 98.4
[2023-11-03] MEDS: HYDROcodone/APAP 5-325MG 1 EACH TAB PO STA (14:36)
[2023-11-03 14:46] LABS: Anisocytosis Slight; Basophils # (A) 0.1 k/uL (0-0.2); Basophils % (A) 1 %; Eosinophils # (A) 0.3 k/uL (0-0.7); Eosinophils % (A) 2 %; HCT 31.4 % (39.0-53.0); HGB 10.5 gm/dL (13.0-17.5); Lymphocytes # (A) 1.2 k/uL (1.0-4.8); Lymphocytes % (A) 9 %; MCH 27.3 pg (25.0-35.0); MCHC 33.6 g/dL (31.0-37.0); MCV 81.3 fL (80.0-100.0); Mean Platelet Volume 11.3; Microcytosis Slight; Monocytes # (A) 1.1 k/uL (0-1.0); Monocytes % (A) 8 %; Neutrophils # (A) 10.5 k/uL (1.3-7.7); Neutrophils % (A) 77 %; Platelet Count 199 k/uL (150-450); Poikilocytosis Slight; RBC 3.86 m/uL (4.30-5.90); RDW 18.2 % (11.5-15.5); WBC 13.6 k/uL (3.8-10.6)
[2023-11-03] MEDS: SODIUM CHLORIDE 0.9% 500 ML 500 ML IV STA (14:46)
[2023-11-03] MEDS: MORPHINE SULFATE 2 MG/ML SYRINGE IVP ONE (14:46)
[2023-11-03 14:59] LABS: ALT 19 U/L (4-49); AST 28 U/L (17-59); African American GFR (CKD) 35 (>60 ml/min/1.73 sqM); Albumin 3.3 g/dL (3.5-5.0); Alkaline Phosphatase 191 U/L (38-126); Anion Gap 8 mmol/L; Blood Urea Nitrogen 35 mg/dL (9-20); Calcium 9.2 mg/dL (8.4-10.2); Carbon Dioxide 22 mmol/L (22-30); Chloride 107 mmol/L (98-107); Glucose 91 mg/dL (74-99); Non-African American GFR(CKD) 30 (>60 ml/min/1.73 sqM); Potassium 4.6 mmol/L (3.5-5.1); Sodium 137 mmol/L (137-145); Total Bilirubin 1.8 mg/dL (0.2-1.3)
--- NOTE | 2023-11-03 15:04 | ED ---
General Adult HPI - General Chief complaint: Abdominal Pain Stated complaint: Abd pain Time Seen by Provider: 11/03/23 15:03 Source: patient, RN notes reviewed Mode of arrival: EMS Limitations: no limitations - History of Present Illness Initial comments: 83-year-old male presented to the ER via EMS with a chief complaint of generalized pain. Patient has a past medical history significant of splenomegaly and cancer. 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 Also patient has been diagnosed with lung cancer with mets to lymph nodes, has yet to follow-up with oncology. He is currently prescribed 25 mg past fentanyl patches. He put 1 on on Sunday and was due to change it today at 4:30 PM. He states last night his pain was extreme and he called his primary care physician. His primary care physician instructed him to place another patch on his other thigh. Patient is currently wearing 50 mg fentanyl patches. He states he also was taking Elmer as needed for breakthrough pain. He is reporting most of his pain throughout his abdomen. He denies any fevers, chills, cough, congestion, chest pain, shortness of breath, urinary complaints, constipation/diarrhea or peripheral edema. - Related Data Home Medications Medication Instructions Recorded Confirmed Pantoprazole Sodium [Protonix] 40 mg PO DAILY@0800 03/08/16 10/16/23 Vit C/E/Zn/Coppr/Lutein/Zeaxan 1 cap PO BID 12/12/18 10/16/23 [Preservision Areds 2 Softgel] carvediloL [Coreg*] 12.5 mg PO BID@0800,1800 07/16/21 10/16/23 LORazepam [Ativan] 1 mg PO BID 05/03/23 10/16/23 Vitamin B Complex 1 cap PO HS 05/03/23 10/16/23 amLODIPine [Norvasc] 5 mg PO BID@0800,1800 05/03/23 10/16/23 cloNIDine 0.3 MG/24HR PATCH 1 patch TRANSDERM CANTRELL 05/03/23 10/16/23 [Catapres-Tts 0.3MG Patch] HYDROcodone/APAP 7.5-325MG [Elmer 1 tab PO Q6HR PRN 10/08/23 10/16/23 7.5-325] L.acidoph,Paracasei, B.lactis 1 each PO DAILY 10/08/23 10/16/23 [Probiotic] Loperamide HCl [Imodium A-D] 2 mg PO DIRECTED 10/08/23 10/16/23 Allergies Allergy/AdvReac Type Severity Reaction Status Date / Time alprazolam [From Xanax] AdvReac Confusion Verified 11/03/23 13:34 Review of Systems ROS Statement: Those systems with pertinent positive or pertinent negative responses have been documented in the HPI. ROS Other: All systems not noted in ROS Statement are negative. Past Medical History Past Medical History: Cancer, COPD, Hypertension, Myocardial Infarction (NV), Renal Disease, Sleep Apnea/CPAP/BIPAP Additional Past Medical History / Comment(s): Hx anemia, myelofibrosis, gastritis, colitis, abdominal pain/enlarged spleen, CKD, interstitial lung disease, pulmonary fibrosis, PE in 2011-pt cannot recall laterality, cannot tolerate Cpap, hx prostate cancer with radiation treatment, nephrolithiasis, migraines, compression fracture low back, bilateral elbow fractures with surgery, PUD, jaundiced as a child, EKWOK bilaterally, myelofibrosis, squamous cell carinoma skin CA, lymphadenopathy. Last Myocardial Infarction Date:: January 2020 History of Any Multi-Drug Resistant Organisms: None Reported Date of last positivie culture/infection: October 26 2021 Past Surgical History: Heart Catheterization, Hernia Repair, Orthopedic Surgery Additional Past Surgical History / Comment(s): Prostate biopsy, R hip hemiarthroplasty, L hand partial amp of 2 fingers, L knee ACL repair, R knee arthroscopy, bilateral total elbow replacements per pt, bilateral cataract removals, L inguinal hernia repair, cardiac caths X2, EGD, colonoscopy, skin cancer removals, left ureteroscopy with laser lithotripsy. Past Anesthesia/Blood Transfusion Reactions: No Reported Reaction Date of Last Stent Placement:: January 2020. Past Psychological History: Anxiety, Depression Smoking Status: Former smoker Past Alcohol Use History: None Reported Past Drug Use History: None Reported - Past Family History Brother(s) Family Medical History: Cancer Additional Family Medical History / Comment(s): ONE BROTHER HAD LUNG CA & ANOTHER HAD MELANOMA. Brother just recently last week. Mother Family Medical History: AICD/Pacemaker Father Family Medical History: No Reported History Sister(s) Family Medical History: No Reported History General Exam Limitations: no limitations General appearance: alert, in no apparent distress Respiratory exam: Present: rhonchi (bilaterally) Cardiovascular Exam: Present: regular rate, normal rhythm, normal heart sounds. Absent: systolic murmur, diastolic murmur, rubs, gallop, clicks GI/Abdominal exam: Present: tenderness (splenomegaly ), normal bowel sounds Extremities exam: Present: normal inspection, full ROM, normal capillary refill. Absent: tenderness, pedal edema, joint swelling, calf tenderness Skin exam: Present: warm, dry, intact, normal color. Absent: rash Course Vital Signs 11/03/23 11/03/23 11/03/23 13:29 13:54 15:55 Temperature 98.4 F Pulse Rate 74 75 Respiratory 18 16 Rate Blood Pressure 158/72 151/63 O2 Sat by Pulse 92 L 90 L 94 L Oximetry 11/03/23 18:00 Temperature Pulse Rate 75 Respiratory 16 Rate Blood Pressure 125/61 O2 Sat by Pulse 97 Oximetry - Reevaluation(s) Reevaluation #1: 11/03/23 17:[address] Goyal. Who advised against admission as there is no acute reason. Dr. Goyal wishes patient be started on 50 mcg patch of fentanyl and patient will be followed up in office on Sunday. 11/03/23 17:39 Patient refused 50 mcg fentanyl patch. Medical Decision Making - Medical Decision Making Was pt. sent in by a medical professional or institution (, PA, INTERNATIONAL FIRST OFFICER, urgent care, hospital, or detention...) When possible be specific @ -No Did you speak to anyone other than the patient for history (EMS, parent, family, police, friend...)? What history was obtained from this source @ -No Did you review nursing and triage notes (agree or disagree)? Why? @ -I reviewed and agree with nursing and triage notes Were old charts reviewed (outside hosp., previous admission, EMS record, old EKG, old radiological studies, urgent care reports/EKG's, detention records)? Report findings @ -No old charts were reviewed Differential Diagnosis (chest pain, altered mental status, abdominal pain women, abdominal pain men, vaginal bleeding, weakness, fever, dyspnea, syncope, headache, dizziness, GI bleed, back pain, seizure, CVA, palpatations, mental health, musculoskeletal)? @ -Differential Abdominal Pain Men:Appendicitis, cholecystitis, diverticulosis, ischemic bowel, pancreatitis, hepatitis, UTI, gastroenteritis, AAA, incarcerated hernia, bowel obstruction, constipation, inflammatory bowel, hepatitis, peptic ulcer disease, splenic infarction, perforated viscus, testicular torsion, this is not meant to be an all-inclusive list EKG interpreted by me (3pts min.). @ -None X-rays interpreted by me (1pt min.). @ -None done CT interpreted by me (1pt min.). @ -CT abdomen pelvis remarkable for massive splenomegaly measuring up to 24.1mm. Atrophic right kidney with a left nonobstructing calculus. Infrarenal abdominal aortic fusiform aneurysm dilation up to 3.5 cm. No definitive acute intra-abdominal process. U/S interpreted by me (1pt. min.). @ -None done What testing was considered but not performed or refused? (CT, X-rays, U/S, labs)? Why? @ -None What meds were considered but not given or refused? Why? @ -None Did you discuss the management of the patient with other professionals (professionals i.e. , PA, INTERNATIONAL FIRST OFFICER, lab, RT, psych nurse, social service director, lead web developer, teacher, activities officer, manager of case)? Give summary @ -Yes, case discussed with Dr. Goyal who advised against admission. He states to start patient on 50mcg fentanyl patch and he will see him in on Sunday in office. Was smoking cessation discussed for >3mins.? @ -No Was critical care preformed (if so, how long)? @ -No Were there social determinants of health that impacted care today? How? (Homelessness, low income, unemployed, alcoholism, drug addiction, transportation, low edu. Level, literacy, decrease access to med. care, [facility], rehab)? @ -Patient is currently presenting assisted living facility. Patient has limited access to transportation. Was there de-escalation of care discussed even if they declined (Discuss DNR or withdrawal of care, Hospice)? DNR status @ -No What co-morbidities impacted this encounter? (DM, HTN, Smoking, COPD, CAD, Cancer, CVA, ARF, Chemo, Hep., AIDS, mental health diagnosis, sleep apnea, morbid obesity)? @ -Cancer Was patient admitted / discharged? Hospital course, mention meds given and route, prescriptions, significant lab abnormalities, going to OR and other pe rtinent info. @ -Discharged. 83 year old male presenting to the ER via EMS with a cheif complaint of abdominal pain. Patient has a known splenomegaly and is currently being worked up outpatient. Patient states his at home medications are not currently controlling pain which is bringing him to the ER today. Vitals stable. Patient in no signs of acute distress and nontoxic-appearing. Splenomegaly on exam. No rebound or guarding. Normal bowel sounds. Laboratory studies obtained appear to be at patient's baseline. WBC 13.6, hemoglobin 10.5 (05-03-2023 hemoglobin 11). CKD GFR 30 (BUN 35, creatinine 2.01.). Alkaline phosphatase elevated at 191 which is likely reactive to malignancy bony invasion. Patient received IV morphine for pain control in the ER. Upon reevaluation, patient resting comfortably in exam room reporting mild improvement of pain. I discussed this case with Dr. Goyal advises discharge as patient has no acute indication for admission. He advised on a 50 mcg fentanyl patch and he can follow-up with patient in office on 11-05-2023. Patient reevaluated, reporting some return of his initial pain. I discussed 50 mcg fentanyl patch with patient, he refused. I instructed patient to continue wearing 25 mcg fentanyl patch and if pain were to increase before following up with Dr. Goyal to place another patch. Patient ambulated in the ER with a walker without complications. Patient stable for discharge at this time. Patient did receive IV Dilaudid prior to discharge for pain control. Strict return parameters discussed. Patient discharged in stable condition with follow-up to Dr. Goyal on 11-05-2023. Patient verbally expressed understanding and agreement with care plan. Case discussed with ED attending, Dr. Abraham. Undiagnosed new problem with uncertain prognosis? @ -No Drug Therapy requiring intensive monitoring for toxicity (Heparin, Nitro, Insulin, Cardizem)? @ -No Were any procedures done? @ -No Diagnosis/symptom? @ -Chronic pain/unlikely Acute, or Chronic, or Acute on Chronic? @ -Chronic Uncomplicated (without systemic symptoms) or Complicated (systemic symptoms)? @ -Complicated Side effects of treatment? @ -No Exacerbation, Progression, or Severe Exacerbation? @ -No Poses a threat to life or bodily function? How? (Chest pain, USA, NV, pneumonia, PE, COPD, DKA, ARF, appy, cholecystitis, CVA, Diverticulitis, Homicidal, Suicidal, threat to staff... and all critical care pts) @ -Yes, patient has known malignancy. - Lab Data Result diagrams: 11/03/23 14:36 11/03/23 14:36 Lab Results 11/03/23 11/03/23 Range/Units 14:36 14:36 WBC 13.6 H (3.8-10.6) k/uL RBC 3.86 L (4.30-5.90) m/uL Hgb 10.5 L (13.0-17.5) gm/dL Hct 31.4 L (39.0-53.0) % MCV 81.3 (80.0-100.0) fL MCH 27.3 (25.0-35.0) pg MCHC 33.6 (31.0-37.0) g/dL RDW 18.2 H (11.5-15.5) % Plt Count 199 (150-450) k/uL MPV 11.3 Neutrophils % 77 % Lymphocytes % 9 % Monocytes % 8 % Eosinophils % 2 % Basophils % 1 % Neutrophils # 10.5 H (1.3-7.7) k/uL Lymphocytes # 1.2 (1.0-4.8) k/uL Monocytes # 1.1 H (0-1.0) k/uL Eosinophils # 0.3 (0-0.7) k/uL Basophils # 0.1 (0-0.2) k/uL Poikilocytosis Slight Anisocytosis Slight Microcytosis Slight Sodium 137 (137-145) mmol/L Potassium 4.6 (3.5-5.1) mmol/L Chloride 107 (98-107) mmol/L Carbon Dioxide 22 (22-30) mmol/L Anion Gap 8 mmol/L BUN 35 H (9-20) mg/dL Creatinine 2.01 H (0.66-1.25) mg/dL Est GFR (CKD-EPI)AfAm 35 (>60 ml/min/1.73 sqM) Est GFR (CKD-EPI)NonAf 30 (>60 ml/min/1.73 sqM) Glucose 91 (74-99) mg/dL Calcium 9.2 (8.4-10.2) mg/dL Total Bilirubin 1.8 H (0.2-1.3) mg/dL AST 28 (17-59) U/L ALT 19 (4-49) U/L Alkaline Phosphatase 191 H (38-126) U/L Total Protein 6.0 L (6.3-8.2) g/dL Albumin 3.3 L (3.5-5.0) g/dL - Radiology Data Radiology results: report reviewed, image reviewed Disposition Clinical Impression: Chronic abdominal pain, Splenomegaly Disposition: HOME SELF-CARE Condition: Stable Instructions (If sedation given, give patient instructions): Abdominal Pain (ED) Additional Instructions: Follow-up with Dr. Goyal on 11-05-2023. A [place] If pain were to increase overnight you may place 1- 25 mcg fentanyl patch, for pain. Return to the ER for any new or worsening symptoms. Is patient prescribed a controlled substance at d/c from ED?: No Referrals: Barrington Goyal Jr, [Primary Care Provider] - 1-2 days Time of Disposition: 17:32
--- NOTE | 2023-11-03 15:57 | CT ---
EXAMINATION TYPE: CT abdomen pelvis wo con CT DLP: 478.2 mGycm, Automated exposure control for dose reduction was used. DATE OF EXAM: 11/03/2023 3:37 PM COMPARISON: CT abdomen pelvis most recent from 08/29/2023, 6 and 24. CLINICAL INDICATION:Male, 83 years old with history of abd pain; chronic abdominal pain, hx of spleno megaly TECHNIQUE: Axial CT abdomen pelvis wo con;Sagittal and coronal reformats were created on a separate workstation. Contrast used: mL of , (none if empty) Oral contrast used: without Oral Contrast (none if empty) FINDINGS: LOWER CHEST: Unremarkable ABDOMEN LIVER: Unremarkable GALLBLADDER AND BILE DUCTS: The gallbladder surgically absent. PANCREAS: Unremarkable. SPLEEN: Enlarged measuring up to 24.1. ADRENAL GLANDS: Unremarkable. KIDNEYS AND URETERS: Atrophic right kidney. The left. Nonobstructing right renal calculus r measuring up to 3 mm. No evidence of hydronephrosis or renal calculus. The ureters are unremarkable. PELVIS BLADDER: Unremarkable REPRODUCTIVE: Unremarkable. ABDOMEN & PELVIS STOMACH AND BOWEL: No evidence of bowel obstruction. PERITONEUM/RETROPERITONEUM: No evidence of pneumoperitoneum or free fluid. VASCULATURE: Infrarenal abdominal aortic aneurysm 3.5 cm. MUSCULOSKELETAL: No acute osseous abnormalities, right hip arthroplasty hardware appears intact. Mild scoliosis changes apex L3 on the right. Diffuse increased sclerosis of the osseous structures. LYMPH NODES: No gross evidence for lymphadenopathy. SOFT TISSUE/ABDOMINAL WALL: Unremarkable IMPRESSION: 1. No definitive acute intra-abdominal process. 2. Massive splenomegaly. 3. Atrophic right kidney. Left nonobstructing calculus. 4. Infrarenal abdominal aortic fusiform aneurysmal dilation up to 3.5 cm. 5. Renal osteodystrophy.
[2023-11-03 16:21] VITALS: PULSE 75; RESP 16
[2023-11-03] MEDS: HYDROmorphone 1 MG/ML 1 ML SYRINGE IVP STA (17:10)
[2023-11-03 18:02] VITALS: BP 125/61
== END 2023-11-03 18:02 | disposition home or self-care (01) ==
LOC: EC 13:26
DX: R16.1 Splenomegaly, not elsewhere classified (principal); N25.0 Renal osteodystrophy; N26.1 Atrophy of kidney (terminal); Z85.46 Personal history of malignant neoplasm of prostate; Z87.891 Personal history of nicotine dependence; Z88.8 Allergy status to other drugs, medicaments and biological substances
CPT/HCPCS: 36415; 80053; 85025; 74176; 99285; 96374; 96375; 96361; J2270; J1170

== ENCOUNTER 2023-12-09 14:08 | Inpatient (IN) | payer MEDICARE ==
--- NOTE | 2023-12-09 15:50 | ED ---
General Adult HPI - General Source: patient, RN notes reviewed Mode of arrival: EMS Limitations: no limitations <Eber Abraham - Last Filed: 12/09/23 15:46> <Lico Peter - Last Filed: 12/09/23 21:35> - General Chief complaint: Abdominal Pain Stated complaint: Abd Pain Time Seen by Provider: 12/09/23 15:23 - History of Present Illness Initial comments: Patient is an 83-year-old male presenting to the emergency department with abdominal discomfort. Patient has known lung cancer. Patient is receiving radiation treatment to his spleen. Patient is unclear if this is from metastasis from the lung. Patient is unaware of any previous liver disease. Patient has taken his pain medication including pain patch and [place] without much improvement. Decreased appetite recently. Patient is still having bowel movements and passing urine. (Eber Abraham) - Related Data Home Medications Medication Instructions Recorded Confirmed Pantoprazole Sodium [Protonix] 40 mg PO DAILY@0800 03/08/16 10/16/23 Vit C/E/Zn/Coppr/Lutein/Zeaxan 1 cap PO BID 12/12/18 10/16/23 [Preservision Areds 2 Softgel] carvediloL [Coreg*] 12.5 mg PO BID@0800,1800 07/16/21 10/16/23 LORazepam [Ativan] 1 mg PO BID 05/03/23 10/16/23 Vitamin B Complex 1 cap PO HS 05/03/23 10/16/23 amLODIPine [Norvasc] 5 mg PO BID@0800,1800 05/03/23 10/16/23 cloNIDine 0.3 MG/24HR PATCH 1 patch TRANSDERM CANTRELL 05/03/23 10/16/23 [Catapres-Tts 0.3MG Patch] HYDROcodone/APAP 7.5-325MG [[place] 1 tab PO Q6HR PRN 10/08/23 10/16/23 7.5-325] L.acidoph,Paracasei, B.lactis 1 each PO DAILY 10/08/23 10/16/23 [Probiotic] Loperamide HCl [Imodium A-D] 2 mg PO DIRECTED 10/08/23 10/16/23 Allergies Allergy/AdvReac Type Severity Reaction Status Date / Time alprazolam [From Xanax] AdvReac Confusion Verified 12/09/23 14:17 Review of Systems ROS Other: All systems not noted in ROS Statement are negative. Constitutional: Denies: fever Eyes: Denies: eye pain ENT: Denies: ear pain Respiratory: Denies: cough Cardiovascular: Denies: chest pain Endocrine: Reports: fatigue Gastrointestinal: Reports: as per HPI, abdominal pain <Eber Abraham - Last Filed: 12/09/23 15:46> ROS Other: All systems not noted in ROS Statement are negative. <Lico Peter - Last Filed: 12/09/23 21:35> ROS Statement: Those systems with pertinent positive or pertinent negative responses have been documented in the HPI. Past Medical History Past Medical History: Cancer, COPD, Hypertension, Myocardial Infarction (MT), Renal Disease, Sleep Apnea/CPAP/BIPAP Additional Past Medical History / Comment(s): Hx anemia, myelofibrosis, gastritis, colitis, abdominal pain/enlarged spleen, CKD, interstitial lung disease, pulmonary fibrosis, PE in 2012-pt cannot recall laterality, cannot tolerate Cpap, hx prostate cancer with radiation treatment, nephrolithiasis, migraines, compression fracture low back, bilateral elbow fractures with surgery, PUD, jaundiced as a child, [place] bilaterally, myelofibrosis, squamous cell carinoma skin CA, lymphadenopathy. Last Myocardial Infarction Date:: January 2020 History of Any Multi-Drug Resistant Organisms: None Reported Date of last positivie culture/infection: October 26 2021 Past Surgical History: Heart Catheterization, Hernia Repair, Orthopedic Surgery Additional Past Surgical History / Comment(s): Prostate biopsy, R hip hemiarthroplasty, L hand partial amp of 2 fingers, L knee ACL repair, R knee arthroscopy, bilateral total elbow replacements per pt, bilateral cataract removals, L inguinal hernia repair, cardiac caths X2, EGD, colonoscopy, skin c ancer removals, left ureteroscopy with laser lithotripsy. Past Anesthesia/Blood Transfusion Reactions: No Reported Reaction Date of Last Stent Placement:: January 2020. Past Psychological History: Anxiety, Depression Smoking Status: Former smoker Past Alcohol Use History: None Reported Past Drug Use History: None Reported - Past Family History Brother(s) Family Medical History: Cancer Additional Family Medical History / Comment(s): ONE BROTHER HAD LUNG CA & ANOTHER HAD MELANOMA. Brother just recently last week. Mother Family Medical History: AICD/Pacemaker Father Family Medical History: No Reported History Sister(s) Family Medical History: No Reported History <Eber Abraham - Last Filed: 12/09/23 15:46> General Exam Limitations: no limitations General appearance: alert, in no apparent distress Head exam: Present: atraumatic Eye exam: Present: scleral icterus ENT exam: Present: normal oropharynx Neck exam: Present: normal inspection Respiratory exam: Present: normal lung sounds bilaterally Cardiovascular Exam: Present: regular rate, normal rhythm GI/Abdominal exam: Present: soft, tenderness (Mild to moderate upper abdominal tenderness), normal bowel sounds. Absent: guarding, rebound, rigid, pulsatile mass Extremities exam: Present: normal inspection Neurological exam: Present: alert Psychiatric exam: Present: normal affect, normal mood Skin exam: Present: other (Jaundice appearance) <Eber Abraham - Last Filed: 12/09/23 15:46> Course Vital Signs 12/09/23 12/09/23 14:12 17:00 Pulse Rate 86 84 Respiratory 18 20 Rate Blood Pressure 121/49 140/72 O2 Sat by Pulse 97 94 L Oximetry Medical Decision Making <Eber Abraham - Last Filed: 12/09/23 15:46> - Lab Data Result diagrams: 12/09/23 15:49 12/09/23 15:49 <Lico Peter - Last Filed: 12/09/23 21:35> - Medical Decision Making Was pt. sent in by a medical professional or institution (NATHAN Rojas, SURVEY RESEARCH TEACHER, urgent care, hospital, or fci...) When possible be specific @ -Patient sent from nursing facility Did you speak to anyone other than the patient for history (EMS, parent, family, police, friend...)? What history was obtained from this source @ -[No] Did you review nursing and triage notes (agree or disagree)? Why? @ -[I reviewed and agree with nursing and triage notes] Were old charts reviewed (outside hosp., previous admission, EMS record, old EKG, old radiological studies, urgent care reports/EKG's, fci records)? Report findings @ -[No old charts were reviewed] Differential Diagnosis (chest pain, altered mental status, abdominal pain women, abdominal pain men, vaginal bleeding, weakness, fever, dyspnea, syncope, headache, dizziness, GI bleed, back pain, seizure, CVA, palpatations, mental health, musculoskeletal)? @ -Differential Abdominal Pain Men: Appendicitis, cholecystitis, diverticulosis, ischemic bowel, pancreatitis, hepatitis, UTI, gastroenteritis, AAA, incarcerated hernia, bowel obstruction, constipation, inflammatory bowel, hepatitis, peptic ulcer disease, splenic infarction, perforated viscus, testicular torsion, this is not meant to be an all-inclusive list EKG interpreted by me (3pts min.). @ -[As above] X-rays interpreted by me (1pt min.). @ -[None done] CT interpreted by me (1pt min.). @ -[None done] U/S interpreted by me (1pt. min.). @ -[None done] What testing was considered but not performed or refused? (CT, X-rays, U/S, labs)? Why? @ -Scan ordered but is still pending What meds were considered but not given or refused? Why? @ -[None] Did you discuss the management of the patient with other professionals (professionals i.e. , PA, SURVEY RESEARCH TEACHER, lab, RT, psych nurse, social media analyst, president celebrity acquistion, teacher, hospital security officer, case manager specialist)? Give summary @ -Endorsed to Dr. Peter at shift change Was smoking cessation discussed for >3mins.? @ -[No] Was critical care preformed (if so, how long)? @ -[No] Were there social determinants of health that impacted care today? How? (Homelessness, low income, unemployed, alcoholism, drug addiction, transportation, low edu. Level, literacy, decrease access to med. care, senior care, rehab)? @ -[No] Was there de-escalation of care discussed even if they declined (Discuss DNR or withdrawal of care, Hospice)? DNR status @ -[No] What co-morbidities impacted this encounter? (DM, HTN, Smoking, COPD, CAD, Cancer, CVA, ARF, Chemo, Hep., AIDS, mental health diagnosis, sleep apnea, morbid obesity)? @ -[None] Was patient admitted / discharged? Hospital course, mention meds given and route, prescriptions, significant lab abnormalities, going to OR and other pertinent info. @ -Patient presents with metastatic lung cancer and possible new onset jaundice. Labs and CT scan ordered. Case endorsed to Dr. Peter at shift change. (Eber Abraham) Is endorsed to me by Dr. Abraham at her shift change pending labs and CAT scan. Patient did have evidence of anemia with a hemoglobin less than 6. He did appear reexamination to be pale. He denies any GI bleeding. I did perform a rectal exam with no masses he had brown-colored stool that was heme-negative. I did discuss the case with Dr. Goyal the patient was admitted transfusing 2 units of blood also consultation by oncology. Comorbidities included myelodysplastic syndrome he does not have per Dr. Goyal lung cancer (Lico Peter) - Lab Data Lab Results 12/09/23 12/09/23 12/09/23 Range/Units 15:49 15:49 15:49 WBC 2.4 L (3.8-10.6) k/uL RBC 2.08 L (4.30-5.90) m/uL Hgb 5.8 L* D (13.0-17.5) gm/dL Hct 16.0 L* (39.0-53.0) % MCV 76.8 L (80.0-100.0) fL MCH 28.1 (25.0-35.0) pg MCHC 36.5 (31.0-37.0) g/dL RDW 21.0 H (11.5-15.5) % Plt Count 21 L D (150-450) k/uL MPV 9.1 Neutrophils % 78 % Lymphocytes % 8 % Monocytes % 9 % Eosinophils % 2 % Basophils % 0 % Neutrophils # 1.9 (1.3-7.7) k/uL Lymphocytes # 0.2 L (1.0-4.8) k/uL Monocytes # 0.2 (0-1.0) k/uL Eosinophils # 0.0 (0-0.7) k/uL Basophils # 0.0 (0-0.2) k/uL Manual Slide Review Performed Hyperchromasia Slight Poikilocytosis Moderate Anisocytosis Moderate Microcytosis Moderate Tear Drop Cells Present PT 11.2 (10.0-12.5) sec INR 1.0 (<1.2) APTT 24.2 (22.0-30.0) sec Sodium 139 (137-145) mmol/L Potassium 5.0 (3.5-5.1) mmol/L Chloride 109 H (98-107) mmol/L Carbon Dioxide 21 L (22-30) mmol/L Anion Gap 9 mmol/L BUN 50 H (9-20) mg/dL Creatinine 2.07 H (0.66-1.25) mg/dL Est GFR (CKD-EPI)AfAm 33 (>60 ml/min/1.73 sqM) Est GFR (CKD-EPI)NonAf 29 (>60 ml/min/1.73 sqM) Glucose 123 H (74-99) mg/dL Calcium 8.9 (8.4-10.2) mg/dL Total Bilirubin 5.1 H (0.2-1.3) mg/dL AST 41 (17-59) U/L ALT 83 H (4-49) U/L Alkaline Phosphatase 176 H (38-126) U/L Total Protein 6.5 (6.3-8.2) g/dL Albumin 3.8 (3.5-5.0) g/dL Amylase 53 (30-110) U/L Lipase 51 (23-300) U/L Stool Occult Blood (Negative) Blood Type Blood Type Recheck Bld Type Recheck Status Antibody Screen Crossmatch Spec Expiration Date 12/09/23 12/09/23 Range/Units 19:24 19:50 WBC (3.8-10.6) k/uL RBC (4.30-5.90) m/uL Hgb (13.0-17.5) gm/dL Hct (39.0-53.0) % MCV (80.0-100.0) fL MCH (25.0-35.0) pg MCHC (31.0-37.0) g/dL RDW (11.5-15.5) % Plt Count (150-450) k/uL MPV Neutrophils % % Lymphocytes % % Monocytes % % Eosinophils % % Basophils % % Neutrophils # (1.3-7.7) k/uL Lymphocytes # (1.0-4.8) k/uL Monocytes # (0-1.0) k/uL Eosinophils # (0-0.7) k/uL Basophils # (0-0.2) k/uL Manual Slide Review Hyperchromasia Poikilocytosis Anisocytosis Microcytosis Tear Drop Cells PT (10.0-12.5) sec INR (<1.2) APTT (22.0-30.0) sec Sodium (137-145) mmol/L Potassium (3.5-5.1) mmol/L Chloride (98-107) mmol/L Carbon Dioxide (22-30) mmol/L Anion Gap mmol/L BUN (9-20) mg/dL Creatinine (0.66-1.25) mg/dL Est GFR (CKD-EPI)AfAm (>60 ml/min/1.73 sqM) Est GFR (CKD-EPI)NonAf (>60 ml/min/1.73 sqM) Glucose (74-99) mg/dL Calcium (8.4-10.2) mg/dL Total Bilirubin (0.2-1.3) mg/dL AST (17-59) U/L ALT (4-49) U/L Alkaline Phosphatase (38-126) U/L Total Protein (6.3-8.2) g/dL Albumin (3.5-5.0) g/dL Amylase (30-110) U/L Lipase (23-300) U/L Stool Occult Blood Negative (Negative) Blood Type O Negative Blood Type Recheck O Neg Bld Type Recheck Status CABO Indicated Antibody Screen NEGATIVE Crossmatch See Detail Spec Expiration Date 12/12/2023 - 235 Disposition <Eber Abraham - Last Filed: 12/09/23 15:46> Time of Disposition: 20:30 Decision Date: 12/09/23 Decision Time: 20:30 <Lico Peter - Last Filed: 12/09/23 21:35> Clinical Impression: Anemia, Myelodysplastic syndrome, Weakness, Kidney injury, Abdominal pain Disposition: ADMITTED IP TO THIS [facility] Condition: Fair Referrals: Barrington Goyal Jr, DO [Primary Care Provider] - 1-2 days
[2023-12-09] MEDS: HYDROmorphone 1 MG/ML 1 ML SYRINGE IVP STA ×2 (15:56→17:53)
[2023-12-09] MEDS: SODIUM CHLORIDE 0.9% 1,000 ML IV STA (15:57)
[2023-12-09] MEDS: PANTOPRAZOLE 40 MG/10 ML VIAL IVP STA (15:57)
[2023-12-09 16:06] LABS: Anisocytosis Moderate; Basophils % (A) 0 %; Eosinophils % (A) 2 %; Hyperchromasia Slight; Lymphocytes # (A) 0.2 k/uL (1.0-4.8); Lymphocytes % (A) 8 %; MCH 28.1 pg (25.0-35.0); MCHC 36.5 g/dL (31.0-37.0); MCV 76.8 fL (80.0-100.0); Mean Platelet Volume 9.1; Microcytosis Moderate; Monocytes # (A) 0.2 k/uL (0-1.0); Monocytes % (A) 9 %; Neutrophils # (A) 1.9 k/uL (1.3-7.7); Neutrophils % (A) 78 %; Poikilocytosis Moderate; RBC 2.08 m/uL (4.30-5.90); WBC 2.4 k/uL (3.8-10.6)
[2023-12-09 16:15] LABS: Partial Thromboplastin Time 24.2 sec (22.0-30.0); Prothrombin Time 11.2 sec (10.0-12.5)
[2023-12-09 16:21] LABS: HGB 5.8 gm/dL (13.0-17.5)
[2023-12-09 16:28] LABS: ALT 83 U/L (4-49); AST 41 U/L (17-59); African American GFR (CKD) 33 (>60 ml/min/1.73 sqM); Albumin 3.8 g/dL (3.5-5.0); Alkaline Phosphatase 176 U/L (38-126); Amylase 53 U/L (30-110); Anion Gap 9 mmol/L; Blood Urea Nitrogen 50 mg/dL (9-20); Calcium 8.9 mg/dL (8.4-10.2); Carbon Dioxide 21 mmol/L (22-30); Chloride 109 mmol/L (98-107); Glucose 123 mg/dL (74-99); Lipase 51 U/L (23-300); Non-African American GFR(CKD) 29 (>60 ml/min/1.73 sqM); Sodium 139 mmol/L (137-145); Total Bilirubin 5.1 mg/dL (0.2-1.3); Total Protein 6.5 g/dL (6.3-8.2)
[2023-12-09 16:41] LABS: Platelet Count 21 k/uL (150-450)
[2023-12-09 16:42] LABS: Tear Drop Cells Present
--- NOTE | 2023-12-09 18:47 | CT ---
EXAMINATION TYPE: CT abdomen pelvis wo con CT DLP: 446.7 mGycm, Automated exposure control for dose reduction was used. DATE OF EXAM: 12/09/2023 6:30 PM COMPARISON: CT abdomen pelvis most recent from 11/03/2023 CLINICAL INDICATION: Male, 83 years old with history of abd pain; RUQ abd pain. Finished radiation fo r spleen, R lung and lymph node cancer recently. Staff states jaundice is worse than usual. TECHNIQUE: Axial CT abdomen pelvis wo con;Sagittal and coronal reformats were created on a separate workstation. Contrast used: mL of , (none if empty) Oral contrast used: without Oral Contrast (none if empty) FINDINGS: LOWER CHEST: Heart is mildly enlarged for size. Atherosclerosis of the coronary arteries. ABDOMEN LIVER: Unremarkable GALLBLADDER AND BILE DUCTS: Gallbladder surgically absent.r PANCREAS: Unremarkable. SPLEEN: Enlarged measuring up to 19.5 cm. ADRENAL GLANDS: Unremarkable. KIDNEYS AND URETERS:Atrophic kidneys bilaterally ro renal pelvic calculus measuring 5 mm in the right , right nonobstructing calculus measuring 4 mm on the right. No left renal calculi. Evidence of hydro nephrosis or renal calculus. The ureters are unremarkable. PELVIS BLADDER: Unremarkable REPRODUCTIVE: Unremarkable. ABDOMEN & PELVIS STOMACH AND BOWEL: No evidence of bowel obstruction. Tubular structure in right lower quadrant possib ly representing the appendix is distended with hyperemia of the mucosa measuring up to 21 mm similar morphology with more stool in this area on 11/03/2023 PERITONEUM/RETROPERITONEUM: No evidence of pneumoperitoneum or free fluid. VASCULATURE: r infrarenal abdominal aortic aneurysm mild dilation measuring up to 3.5 cm. MUSCULOSKELETAL: No acute osseous abnormalities, right hip arthroplasty appears intact. LYMPH NODES: No gross evidence for lymphadenopathy. SOFT TISSUE/ABDOMINAL WALL: Unremarkable IMPRESSION: 1. No definitive right upper quadrant acute process. 2. Nonobstructing right renal calculus and right ureteropelvic junction calculus. No hydronephrosis. 3. Splenomegaly. 4. Infrarenal abdominal aortic aneurysm measuring up to 3.5 cm.
[2023-12-09] MEDS: fentaNYL (PF) 50 MCG/ML 2 ML AMP IV STA (20:51)
[2023-12-09] MEDS: ONDANSETRON 4 MG/2 ML VIAL IVP STA (20:51)
[2023-12-09] MEDS ORDERED: NALOXONE 0.4 MG/ML 1 ML VIAL IV PRN (21:37)
--- NOTE | 2023-12-09 21:44 | ED ---
Medical Decision Making - Lab Data Result diagrams: 12/09/23 15:49 12/09/23 15:49 Lab Results 12/09/23 12/09/23 12/09/23 Range/Units 15:49 15:49 15:49 WBC 2.4 L (3.8-10.6) k/uL RBC 2.08 L (4.30-5.90) m/uL Hgb 5.8 L* D (13.0-17.5) gm/dL Hct 16.0 L* (39.0-53.0) % MCV 76.8 L (80.0-100.0) fL MCH 28.1 (25.0-35.0) pg MCHC 36.5 (31.0-37.0) g/dL RDW 21.0 H (11.5-15.5) % Plt Count 21 L D (150-450) k/uL MPV 9.1 Neutrophils % 78 % Lymphocytes % 8 % Monocytes % 9 % Eosinophils % 2 % Basophils % 0 % Neutrophils # 1.9 (1.3-7.7) k/uL Lymphocytes # 0.2 L (1.0-4.8) k/uL Monocytes # 0.2 (0-1.0) k/uL Eosinophils # 0.0 (0-0.7) k/uL Basophils # 0.0 (0-0.2) k/uL Manual Slide Review Performed Hyperchromasia Slight Poikilocytosis Moderate Anisocytosis Moderate Microcytosis Moderate Tear Drop Cells Present PT 11.2 (10.0-12.5) sec INR 1.0 (<1.2) APTT 24.2 (22.0-30.0) sec Sodium 139 (137-145) mmol/L Potassium 5.0 (3.5-5.1) mmol/L Chloride 109 H (98-107) mmol/L Carbon Dioxide 21 L (22-30) mmol/L Anion Gap 9 mmol/L BUN 50 H (9-20) mg/dL Creatinine 2.07 H (0.66-1.25) mg/dL Est GFR (CKD-EPI)AfAm 33 (>60 ml/min/1.73 sqM) Est GFR (CKD-EPI)NonAf 29 (>60 ml/min/1.73 sqM) Glucose 123 H (74-99) mg/dL Calcium 8.9 (8.4-10.2) mg/dL Total Bilirubin 5.1 H (0.2-1.3) mg/dL AST 41 (17-59) U/L ALT 83 H (4-49) U/L Alkaline Phosphatase 176 H (38-126) U/L Total Protein 6.5 (6.3-8.2) g/dL Albumin 3.8 (3.5-5.0) g/dL Amylase 53 (30-110) U/L Lipase 51 (23-300) U/L Stool Occult Blood (Negative) Blood Type Blood Type Recheck Bld Type Recheck Status Antibody Screen Crossmatch Spec Expiration Date 12/09/23 12/09/23 Range/Units 19:24 19:50 WBC (3.8-10.6) k/uL RBC (4.30-5.90) m/uL Hgb (13.0-17.5) gm/dL Hct (39.0-53.0) % MCV (80.0-100.0) fL MCH (25.0-35.0) pg MCHC (31.0-37.0) g/dL RDW (11.5-15.5) % Plt Count (150-450) k/uL MPV Neutrophils % % Lymphocytes % % Monocytes % % Eosinophils % % Basophils % % Neutrophils # (1.3-7.7) k/uL Lymphocytes # (1.0-4.8) k/uL Monocytes # (0-1.0) k/uL Eosinophils # (0-0.7) k/uL Basophils # (0-0.2) k/uL Manual Slide Review Hyperchromasia Poikilocytosis Anisocytosis Microcytosis Tear Drop Cells PT (10.0-12.5) sec INR (<1.2) APTT (22.0-30.0) sec Sodium (137-145) mmol/L Potassium (3.5-5.1) mmol/L Chloride (98-107) mmol/L Carbon Dioxide (22-30) mmol/L Anion Gap mmol/L BUN (9-20) mg/dL Creatinine (0.66-1.25) mg/dL Est GFR (CKD-EPI)AfAm (>60 ml/min/1.73 sqM) Est GFR (CKD-EPI)NonAf (>60 ml/min/1.73 sqM) Glucose (74-99) mg/dL Calcium (8.4-10.2) mg/dL Total Bilirubin (0.2-1.3) mg/dL AST (17-59) U/L ALT (4-49) U/L Alkaline Phosphatase (38-126) U/L Total Protein (6.3-8.2) g/dL Albumin (3.5-5.0) g/dL Amylase (30-110) U/L Lipase (23-300) U/L Stool Occult Blood Negative (Negative) Blood Type O Negative Blood Type Recheck O Neg Bld Type Recheck Status CABO Indicated Antibody Screen NEGATIVE Crossmatch See Detail Spec Expiration Date 12/12/20232349 Disposition Clinical Impression: Anemia, Myelodysplastic syndrome, Weakness, Kidney injury, Abdominal pain, Jaundice Disposition: ADMITTED IP TO THIS [facility] Condition: Fair Referrals: Barrington Goyal Jr, [Primary Care Provider] - 1-2 days
[2023-12-09] MEDS: SODIUM CHLORIDE 0.9% 1,000 ML IV SCH (22:24)
[2023-12-10] MEDS: HYDROcodone/APAP 7.5-325MG 1 EACH TAB PO PRN (02:35)
[2023-12-10] MEDS: cloNIDine 0.3 MG/24HR PATCH TRANSDERM SCH (02:52)
[2023-12-10] MEDS: HYDROmorphone 2 MG TAB PO PRN (04:14)
[2023-12-10] MEDS: LORazepam 1 MG TAB PO SCH (09:09)
[2023-12-10] MEDS: carvediloL 12.5 MG TAB PO SCH (09:09)
[2023-12-10] MEDS: FAMOTIDINE 20 MG TAB PO SCH (09:09)
[2023-12-10] MEDS: amLODIPine 5 MG TAB PO SCH (09:09)
--- NOTE | 2023-12-10 11:09 | XR ---
EXAMINATION TYPE: XR chest 2V DATE OF EXAM: 12/10/2023 11:00 AM CLINICAL INDICATION: Male, 83 years old with history of new onset pancytopenia, s/p splenic radiation ; [facility] COMPARISON: Pet/CT 10/04/2023. TECHNIQUE: XR chest 2V Frontal view of the chest. FINDINGS: Lungs/Pleura: 23 mm right upper lung pulmonary nodule. Nodular density projects in the inferior hilum on lateral view possibly summation artifact measuring 31 mm. No focal consolidation or pneumothorax. No pleural effusion visualized. Finding of the diaphragm. Pulmonary vascularity: Unremarkable. Heart/mediastinum: Cardiomediastinal silhouette is unremarkable. Musculoskeletal: No acute osseous pathology. Other findings: None IMPRESSION: 1. No acute cardiopulmonary disease/process. 2. Nodular density projecting over the inferior hilum unclear if this is summation artifact. No find ing on prior PET/CT 10/04/2023. 3. Right upper lung pulmonary nodule remains present.
[2023-12-10 11:27] LABS: Anisocytosis Moderate; Hyperchromasia Slight; MCH 29.5 pg (25.0-35.0); MCHC 35.7 g/dL (31.0-37.0); Microcytosis Slight; Poikilocytosis Moderate; RBC 2.11 m/uL (4.30-5.90); RDW 21.2 % (11.5-15.5); Reticulocyte % 1.6 % (0.5-2.0); WBC 1.7 k/uL (3.8-10.6)
[2023-12-10 11:44] LABS: African American GFR (CKD) 34 (>60 ml/min/1.73 sqM); Anion Gap 7 mmol/L; Blood Urea Nitrogen 52 mg/dL (9-20); Calcium 8.6 mg/dL (8.4-10.2); Carbon Dioxide 20 mmol/L (22-30); Chloride 111 mmol/L (98-107); Glucose 132 mg/dL (74-99); Non-African American GFR(CKD) 29 (>60 ml/min/1.73 sqM); Potassium 4.4 mmol/L (3.5-5.1); Sodium 138 mmol/L (137-145); Total Bilirubin 6.4 mg/dL (0.2-1.3)
[2023-12-10 12:04] LABS: HCT 17.4 % (39.0-53.0); HGB 6.2 gm/dL (13.0-17.5)
[2023-12-10 12:05] LABS: MCV 82.6 fL (80.0-100.0)
[2023-12-10 12:37] LABS: Platelet Count 10 k/uL (150-450)
[2023-12-10] MEDS: HYDROmorphone 1 MG/ML 1 ML SYRINGE ONE (12:48)
[2023-12-10] MEDS: FAMOTIDINE 20 MG TAB ONE (12:48)
[2023-12-10] MEDS: LORazepam 1 MG TAB ONE (12:48)
[2023-12-10] MEDS: HYDROmorphone 0.5 MG/0.5 ML SYRINGE ONE (12:48)
[2023-12-10] MEDS: HYDROcodone/APAP 7.5-325MG 1 EACH TAB ONE ×2 (12:48→12:49)
[2023-12-10] MEDS: HYDROmorphone 2 MG TAB ONE (12:48)
[2023-12-10] MEDS: HYDROmorphone 0.5 MG/0.5 ML SYRINGE IVP STA (13:24)
--- NOTE | 2023-12-10 15:33 | US ---
EXAMINATION TYPE: US liver DATE OF EXAM: 12/10/2023 COMPARISON: NONE CLINICAL INDICATION: Male, 83 years old with history of new onset pancytopenia, s/p splenic radiation ; h/o lung CA, splenic radiation, abd pain, jaundice, cholecystectomy TECHNIQUE: Multiple sonographic images of the right upper quadrant are obtained. FINDINGS: EXAM MEASUREMENTS: Liver Length: 17.1 cm Gallbladder Wall: Surgically absent cm CBD: 1.0 cm Right Kidney: 6.9 x 2.7 x 3.4 c Pancreas: wnl Liver: wnl Gallbladder: Surgically absent Evidence for sonographic Lake's sign: no CBD: dilated, normal post damien Right Kidney: atrophic with increased cortical echotexture. No evidence fracture stenosis. IMPRESSION: 1. No evidence for acute abdominal process. 2. Medical renal disease with mild renal atrophy.
--- NOTE | 2023-12-10 15:38 | P.HPIM ---
History of Present Illness H&P Date: 12/10/23 Chief Complaint: Abdominal pain This is an 83-year-old gentleman with past medical history significant for newly diagnosed squamous cell CA of head /neck, history of myelofibrosis, splenomegaly-recent splenic radiation and multiple other medical issues presented to the ER with progressive abdominal pain not controlled with his pain regimen at home accompanied by decreased appetite, fatigue. Reports spontaneously voiding and having bowel movements. Denies chest pain, pal pitations or shortness of breath. On admission hemoglobin 6, received 2 units of packed RBCs. Denies rectal bleeding. Hemoccult negative in the ER. Repeat labs ordered. CT of abdomen pelvis reported no definite right upper quadrant acute process nonobstructing right renal calculus and right ureteropelvic junction calculus, no hydronephrosis, splenomegaly, infrarenal abdominal aortic aneurysm measuring up to 3.5 cm. Chest x-ray reporting no acute cardiopulmonary disease/process, nodular density projecting over the inferior hilum unclear if this is summation artifact no finding on prior PET/CT 10/04/2023, right upper lung pulmonary nodule remains present. Review of Systems ROS Statement: Those systems with pertinent positive or pertinent negative responses have been documented in the HPI. ROS Other: All systems not noted in ROS Statement are negative. Past Medical History Past Medical History: Cancer, COPD, Hypertension, Myocardial Infarction ([place]), Renal Disease, Sleep Apnea/CPAP/BIPAP Additional Past Medical History / Comment(s): Hx anemia, myelofibrosis, gastritis, colitis, abdominal pain/enlarged spleen, CKD, interstitial lung disease, pulmonary fibrosis, PE in 2012-pt cannot recall laterality, cannot tolerate Cpap, hx prostate cancer with radiation treatment, nephrolithiasis, migraines, compression fracture low back, bilateral elbow fractures with surgery, PUD, jaundiced as a child, LIME bilaterally, myelofibrosis, squamous cell carinoma skin CA, lymphadenopathy. Last Myocardial Infarction Date:: January 2020 History of Any Multi-Drug Resistant Organisms: None Reported Date of last positivie culture/infection: October 26 2021 Past Surgical History: Heart Catheterization, Hernia Repair, Orthopedic Surgery Additional Past Surgical History / Comment(s): Prostate biopsy, R hip hemiarthroplasty, L hand partial amp of 2 fingers, L knee ACL repair, R knee arthroscopy, bilateral total elbow replacements per pt, bilateral cataract removals, L inguinal hernia repair, cardiac caths X2, EGD, colonoscopy, skin cancer removals, left ureteroscopy with laser lithotripsy. Past Anesthesia/Blood Transfusion Reactions: No Reported Reaction Date of Last Stent Placement:: January 2020. Past Psychological History: Anxiety, Depression Additional Psychological History / Comment(s): Pt resides alone, his spouse 05/2021. Pt uses a cane or walker. Has traveling nurse visits weekly, other help including PT visits Smoking Status: Former smoker Past Alcohol Use History: None Reported Additional Past Alcohol Use History / Comment(s): Started smoking in 1960 and quit in 2007. Past Drug Use History: None Reported - Past Family History Brother(s) Family Medical History: Cancer Additional Family Medical History / Comment(s): ONE BROTHER HAD LUNG CA & ANOTHER HAD MELANOMA. Brother just recently last week. Mother Family Medical History: AICD/Pacemaker Father Family Medical History: No Reported History Sister(s) Family Medical History: No Reported History Medications and Allergies Home Medications Medication Instructions Recorded Confirmed Type Pantoprazole Sodium [Protonix] 40 mg PO DAILY 03/08/16 12/10/23 History Vit C/E/Zn/Coppr/Lutein/Zeaxan 1 cap PO BID 12/12/18 12/10/23 History [Preservision Areds 2 Softgel] carvediloL [Coreg*] 12.5 mg PO BID 07/16/21 12/10/23 History LORazepam [Ativan] 0.5 mg PO BID 05/03/23 12/10/23 History Vitamin B Complex 1 cap PO HS 05/03/23 12/10/23 History amLODIPine [Norvasc] 5 mg PO BID 05/03/23 12/10/23 History cloNIDine 0.3 MG/24HR PATCH 1 patch TRANSDERM Q7D 05/03/23 12/10/23 History [Catapres-Tts 0.3MG Patch] HYDROcodone/APAP 7.5-325MG [[place] 1 tab PO Q6H PRN 10/08/23 12/10/23 History 7.5-325] Vitamin D3(Unknown Dose) 1 tab PO HS 12/10/23 12/10/23 History fentaNYL 75MCG/HR PATCH [Duragesic 1 patch TRANSDERM Q72H 12/10/23 12/10/23 History 75MCG/HR] Allergies Allergy/AdvReac Type Severity Reaction Status Date / Time alprazolam [From Xanax] AdvReac Confusion Verified 12/10/23 10:11 Physical Exam Vitals: Vital Signs Temp Pulse Pulse Resp BP BP Pulse Ox 12/10/23 14:00 97.9 F 71 18 127/52 99 12/10/23 07:37 98.1 F 76 17 103/47 98 12/10/23 04:21 16 12/10/23 02:00 98 F 81 16 117/52 100 12/10/23 01:00 97.5 F L 73 16 138/65 92 L 12/10/23 00:44 98.0 F 70 18 139/61 100 12/10/23 00:24 97.5 F L 72 16 134/55 100 12/09/23 23:32 98.1 F 75 18 113/51 100 12/09/23 22:03 97.8 F 85 18 113/46 95 12/09/23 21:43 97.8 F 71 18 118/46 98 12/09/23 21:41 86 L 12/09/23 21:30 98.4 F 77 18 102/83 92 L 12/09/23 19:00 74 20 101/62 94 L 12/09/23 17:00 84 20 140/72 94 L Intake and Output 12/09/23 12/10/23 12/10/23 22:59 06:59 14:59 Intake Total 0 620 Output Total 450 Balance 0 170 Intake: Blood Product 0 620 Rc As-1 Unit 310 [id number] Rc As-1 Unit 0 310 [id number] Output: Urine 450 Other: Voiding Method Bedside Commode Diaper # Voids 1 Weight 68.946 kg PHYSICAL EXAM: VITAL SIGNS: [As above] GENERAL: Elderly gentleman lying in bed, alert and oriented x 3, currently in pain, jaundice HEENT: Conjunctivae normal. Sclera icterus NECK: Supple, no JVD. CARDIOVASCULAR: S1, S2 regular. No murmur RESPIRATION: Unlabored, equal air entry breath sounds diminished in the bases. No rhonchi or crackles. No bronchial breathing. ABDOMEN: Soft, mid to upper abdominal tenderness ,splenomegaly, +bs LEGS: No edema. no swelling NERVOUS SYSTEM: Cranial N 2-12 grossly normal.No focal deficits. Strength and sensation grossly intact.. Skin: Warm and dry, no rash, jaundice Results CBC & Chem 7: 12/10/23 11:10 12/10/23 11:10 Labs: Abnormal Lab Results - Last 24 Hours (Table) 12/09/23 12/09/23 12/09/23 Range/Units 15:49 15:49 19:50 WBC 2.4 L (3.8-10.6) k/uL RBC 2.08 L (4.30-5.90) m/uL Hgb 5.8 L* D (13.0-17.5) gm/dL Hct 16.0 L* (39.0-53.0) % MCV 76.8 L (80.0-100.0) fL RDW 21.0 H (11.5-15.5) % Plt Count 21 L D (150-450) k/uL Lymphocytes # 0.2 L (1.0-4.8) k/uL Chloride 109 H (98-107) mmol/L Carbon Dioxide 21 L (22-30) mmol/L BUN 50 H (9-20) mg/dL Creatinine 2.07 H (0.66-1.25) mg/dL Glucose 123 H (74-99) mg/dL Total Bilirubin 5.1 H (0.2-1.3) mg/dL Unconjugated Bilirubin (0.0-1.1) mg/dL ALT 83 H (4-49) U/L Alkaline Phosphatase 176 H (38-126) U/L Crossmatch See Detail 12/10/23 12/10/23 Range/Units 11:10 11:10 WBC 1.7 L (3.8-10.6) k/uL RBC 2.11 L (4.30-5.90) m/uL Hgb 6.2 L* (13.0-17.5) gm/dL Hct 17.4 L* (39.0-53.0) % MCV (80.0-100.0) fL RDW 21.2 H (11.5-15.5) % Plt Count 10 L* D (150-450) k/uL Lymphocytes # (1.0-4.8) k/uL Chloride 111 H (98-107) mmol/L Carbon Dioxide 20 L (22-30) mmol/L BUN 52 H (9-20) mg/dL Creatinine 2.05 H (0.66-1.25) mg/dL Glucose 132 H (74-99) mg/dL Total Bilirubin 6.4 H (0.2-1.3) mg/dL Unconjugated Bilirubin 6.0 H (0.0-1.1) mg/dL ALT (4-49) U/L Alkaline Phosphatase (38-126) U/L Crossmatch Thrombosis Risk Factor Assmnt - Choose All That Apply Any of the Below Risk Factors Present?: Yes Other Risk Factors: Yes Each Risk Factor Represents 2 Points: Malignancy Each Risk Factor Represents 3 Points: Age 75 years or older, History of DVT/PE Thrombosis Risk Factor Assessment Total Risk Factor Score: 8 Thrombosis Risk Factor Assessment Level: High Risk Assessment and Plan Assessment: Abdominal pain, jaundice, fatigue in a patient with history of myelofibrosis, newly diagnosed squamous cell CA of head /neck Acute on chronic anemia secondary to myelofibrosis Splenomegaly secondary to myelofibrosis, status post recent splenic radiation Right upper lung pulmonary nodule, nodular density projecting over the inferior hilum unclear if this is summation artifact. Chronic renal failure,III, baseline around 2. COPD Interstitial lung disease, idiopathic pulmonary fibrosis Chronic hypoxic respiratory failure, wears 2 L nasal cannula O2 at home Infrarenal abdominal aortic aneurysm measuring up to 3.[address] Colitis, history of CAD, history of [place] Essential hypertension Plan: Continue on current medication regimen, monitoring and symptomatic treatme nt. Pain management-continues to have significant abdominal pain, Dilaudid increased. Oncology consult in place, recommendations pending. Liver ultrasound pending. Posttransfusion hemoglobin returned at 6.2, 1 unit irradiated RBCs ordered as per oncology. Pulmonary consulted regarding possible abnormal chest x-ray findings not present on prior PET CT 10/04/23. The impression and plan of care has been dictated as directed. : I performed a history and examination of this patient, discussed the same with the dictator. I agree with the dictator's note ,documented as a scribe. Any ad ditional findings or plans will be noted.
[2023-12-10 16:41] LABS: Hepatitis A Antibody IgM Nonreactive (Nonreactive)
[2023-12-10 16:42] LABS: Hepatitis B Core IgM Nonreactive (Nonreactive); Hepatitis C IgG Antibody Nonreactive (Nonreactive)
[2023-12-10 17:13] LABS: Appearance,Urine Clear (Clear); Bilirubin,Urine Negative (Negative); Blood,Urine Negative (Negative); Calcium Oxalate Crystals,Urine Rare /hpf; Color,Urine Yellow; Glucose,Urine (UA) Negative (Negative); Ketones,Urine Negative (Negative); Leukocyte Esterase,Urine Negative (Negative); Mucus,Urine Rare /hpf; Nitrite,Urine Negative (Negative); Protein,Urine 1+ (Negative); RBC,Urine <1 /hpf (0-5); Specific Gravity,Urine 1.018 (1.001-1.035); Squamous Epithelial Cell,Urine <1 /hpf (0-4); Urobilinogen,Urine <2.0 mg/dL (<2.0); WBC,Urine <1 /hpf (0-5)
[2023-12-10] MEDS: HYDROmorphone 1 MG/ML 1 ML SYRINGE IVP PRN (18:18)
--- NOTE | 2023-12-10 18:28 | P.CONS ---
History of Present Illness - Reason for Consult Consult date: 12/10/23 myelofibrosis Requesting physician: Lico Peter - Chief Complaint abd pain - History of Present Illness Mr. Ward is an 83-year-old pt of Dr. Joleen Landa with PMH significant for prostate cancer status post EBRT in 2018 along with intermittent androgen deprivation therapy. 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 Squamous cell carcinoma of the uatsdin, resected earlier this year. 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 He began having increased swelling in the left neck. PET/CT on 09/23/2023 noted FDG avid posterior cervical lymphadenopathy as well as FDG avid lesion in the apex of the right lung. He was also noted to have significant splenomegaly. 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 Plan to start libtayo. He was having significant left-sided abdominal pain, which prompted recent presentation to the [facility] ED for pain control. CT A/P revealed no acute process, but noted enlarged spleen measuring 24.1 cm. He was also having pain in the left neck. He was started on fentanyl. He was placed on hydrea and started palliative splenic radiation earlier this month, he completed all but 2 planned sessions. He is currently admitted with c/o abd pain and jaundice as well as lt neck and LUQ pain. No dysphagia, N,V, SOB, cough, bleeding, hematochezia or melena. Pt reporting fever, chills, never took temp. Review of Systems 14 point ROS is neg except as stated in HPI Past Medical History Past Medical History: Cancer, COPD, Hypertension, Myocardial Infarction ([place]), Renal Disease, Sleep Apnea/CPAP/BIPAP Additional Past Medical History / Comment(s): Hx anemia, myelofibrosis, gastritis, colitis, abdominal pain/enlarged spleen, CKD, interstitial lung disease, pulmonary fibrosis, PE in 2012-pt cannot recall laterality, cannot tolerate Cpap, hx prostate cancer with radiation treatment, nephrolithiasis, migraines, compression fracture low back, bilateral elbow fractures with surgery, PUD, jaundiced as a child, [place] bilaterally, myelofibrosis, squamous cell carinoma skin CA, lymphadenopathy. Last Myocardial Infarction Date:: January 2020 History of Any Multi-Drug Resistant Organisms: None Reported Year Discovered:: October 26 2021 Past Surgical History: Heart Catheterization, Hernia Repair, Orthopedic Surgery Additional Past Surgical History / Comment(s): Prostate biopsy, R hip hemiarthroplasty, L hand partial amp of 2 fingers, L knee ACL repair, R knee arthroscopy, bilateral total elbow replacements per pt, bilateral cataract removals, L inguinal hernia repair, cardiac caths X2, EGD, colonoscopy, skin cancer removals, left ureteroscopy with laser lithotripsy. Past Anesthesia/Blood Transfusion Reactions: No Reported Reaction Date of Last Stent Placement:: January 2020. Past Psychological History: Anxiety, Depression Additional Psychological History / Comment(s): Pt resides alone, his spouse 05/2021. Pt uses a cane or walker. Has traveling nurse visits weekly, other help including PT visits Smoking Status: Former smoker Past Alcohol Use History: None Reported Additional Past Alcohol Use History / Comment(s): Started smoking in 1960 and quit in 2007. Past Drug Use History: None Reported - Past Family History Brother(s) Family Medical History: Cancer Additional Family Medical History / Comment(s): ONE BROTHER HAD LUNG CA & ANOTHER HAD MELANOMA. Brother just recently last week. Mother Family Medical History: AICD/Pacemaker Father Family Medical History: No Reported History Sister(s) Family Medical History: No Reported History Medications and Allergies Home Medications Medication Instructions Recorded Confirmed Type Pantoprazole Sodium [Protonix] 40 mg PO DAILY 03/08/16 12/10/23 History Vit C/E/Zn/Coppr/Lutein/Zeaxan 1 cap PO BID 12/12/18 12/10/23 History [Preservision Areds 2 Softgel] carvediloL [Coreg*] 12.5 mg PO BID 07/16/21 12/10/23 History LORazepam [Ativan] 0.5 mg PO BID 05/03/23 12/10/23 History Vitamin B Complex 1 cap PO HS 05/03/23 12/10/23 History amLODIPine [Norvasc] 5 mg PO BID 05/03/23 12/10/23 History cloNIDine 0.3 MG/24HR PATCH 1 patch TRANSDERM Q7D 05/03/23 12/10/23 History [Catapres-Tts 0.3MG Patch] HYDROcodone/APAP 7.5-325MG [[place] 1 tab PO Q6H PRN 10/08/23 12/10/23 History 7.5-325] Vitamin D3(Unknown Dose) 1 tab PO HS 12/10/23 12/10/23 History fentaNYL 75MCG/HR PATCH [Duragesic 1 patch TRANSDERM Q72H 12/10/23 12/10/23 History 75MCG/HR] Allergies Allergy/AdvReac Type Severity Reaction Status Date / Time alprazolam [From Xanax] AdvReac Confusion Verified 12/10/23 10:11 Physical Exam Vitals: Vital Signs Temp Pulse Pulse Resp BP BP Pulse Ox 12/10/23 07:37 98.1 F 76 17 103/47 98 12/10/23 04:21 16 12/10/23 02:00 98 F 81 16 117/52 100 12/10/23 01:00 97.5 F L 73 16 138/65 92 L 12/10/23 00:44 98.0 F 70 18 139/61 100 12/10/23 00:24 97.5 F L 72 16 134/55 100 12/09/23 23:32 98.1 F 75 18 113/51 100 12/09/23 22:03 97.8 F 85 18 113/46 95 12/09/23 21:43 97.8 F 71 18 118/46 98 12/09/23 21:41 86 L 12/09/23 21:30 98.4 F 77 18 102/83 92 L 12/09/23 19:00 74 20 101/62 94 L 12/09/23 17:00 84 20 140/72 94 L 12/09/23 14:12 86 18 121/49 97 Intake and Output 12/09/23 12/10/23 12/10/23 22:59 06:59 14:59 Intake Total 0 620 Output Total 450 Balance 0 170 Intake: Blood Product 0 620 Rc As-1 Unit 310 [id number] Rc As-1 Unit 0 310 [id number] Output: Urine 450 Other: Voiding Method Bedside Commode Diaper # Voids 1 Weight 68.946 kg - Constitutional General appearance: average body habitus, cooperative, no acute distress - EENT pain with palpation of the left cervcial area Eyes: EOMI, scleral icterus ENT: hearing grossly normal - Respiratory Respiratory: bilateral: CTA - Cardiovascular Rhythm: regular Heart sounds: normal: S1, S2 Abnormal Heart Sounds: no systolic murmur, no diastolic murmur, no rub, no S3 Gallop, no S4 Gallop, no click, no other leg Peripheral Edema: bilateral: None - Gastrointestinal General gastrointestinal: normal bowel sounds, soft, tenderness Localized gastrointestinal: tender: LUQ - Integumentary Integumentary: jaundiced, pale - Neurologic Neurologic: CNII-XII intact - Musculoskeletal Musculoskeletal: generalized weakness, strength equal bilaterally - Psychiatric pt does not know his medical history very well Psychiatric: A&O x's 3, appropriate affect Results CBC & Chem 7: 12/10/23 11:10 12/10/23 11:10 Labs: Abnormal Lab Results - Last 24 Hours (Table) 12/09/23 12/09/23 12/09/23 Range/Units 15:49 15:49 19:50 WBC 2.4 L (3.8-10.6) k/uL RBC 2.08 L (4.30-5.90) m/uL Hgb 5.8 L* D (13.0-17.5) gm/dL Hct 16.0 L* (39.0-53.0) % MCV 76.8 L (80.0-100.0) fL RDW 21.0 H (11.5-15.5) % Plt Count 21 L D (150-450) k/uL Lymphocytes # 0.2 L (1.0-4.8) k/uL Chloride 109 H (98-107) mmol/L Carbon Dioxide 21 L (22-30) mmol/L BUN 50 H (9-20) mg/dL Creatinine 2.07 H (0.66-1.25) mg/dL Glucose 123 H (74-99) mg/dL Total Bilirubin 5.1 H (0.2-1.3) mg/dL ALT 83 H (4-49) U/L Alkaline Phosphatase 176 H (38-126) U/L Crossmatch See Detail CT scan - abdomen: report reviewed CT scan - pelvis: report reviewed Assessment and Plan (1) Abdominal pain Current Visit: Yes Status: Acute Priority: High Code(s): R10.9 - UNSPECIFIED ABDOMINAL PAIN SNOMED Code(s): 00730079 (2) Jaundice Current Visit: Yes Status: Acute Priority: High Code(s): R17 - UNSPECIFIED JAUNDICE SNOMED Code(s): 43769914 (3) Splenomegaly Current Visit: Yes Status: Chronic Priority: Medium Code(s): R16.1 - SPLENOMEGALY, NOT ELSEWHERE CLASSIFIED SNOMED Code(s): 33751924 (4) Squamous cell carcinoma Current Visit: Yes Status: Acute Priority: High Code(s): TFV8031 - SNOMED Code(s): 372604007 (5) Myelofibrosis Current Visit: Yes Status: Chronic Priority: Medium Code(s): D75.81 - MYELOFIBROSIS SNOMED Code(s): 25813272 Plan: Abd pain, jaundice -Elevated LFTs, jaundice -Unclear etiology. US liver, acute hep panel direct/indirect bili and retic ordered. Coags and infection work up also ordered Sq cell carcinoma -newly diagnosed, oligometastatic disease to the lung -due to start libtayo on 12/13. Treatment delay if necessary until pt current condition adequately resolved MFand splenomegaly, pancytopenia -Recently completed radiation to spleen -Possibly the medullary capacity of the spleen compromised after radiation. Possibly liver medullary compensation underlying cause for elevated LFTs. Pending work up as above -Transfuse to keep Hgb 7 or higher. Pt received 2 units, his Hgb came back at 6.2 another unit ordered. Transfuse for platelets >10,000 or if symptomatic, no asa, NSAIDs, anticoagulation. WBC/ANC low but, safe range so far, no GCSF at this time. Pain 2/2 to malignancy -pt was on 75mcg of fentanyl on admit, not sure if that is still on -Ok to cont with dilaudid for now, would prefer to transition to pt home meds and titrate as needed -monitor BM, add meds for prevention of narcotic induced constipation if needed. Dr dumontests: I have seen and examined pt, performed H&P, developed impression and plan of care. Discussed with dictator. Agree with documentation, dictated as a scribe.
[2023-12-10 19:36] LABS: INR 1.1 (<1.2); Partial Thromboplastin Time 26.1 sec (22.0-30.0)
[2023-12-10] MEDS: MELATONIN 5 MG TABLET PO SCH (20:21)
[2023-12-10] MEDS: METHYL SALICYLATE-MENTHOL OINT (3 OZ TUBE) TOPICAL SCH (20:35)
[2023-12-10] MEDS: LOPERAMIDE 2 MG CAP PO PRN (21:08)
[2023-12-11 03:35] LABS: Anisocytosis Moderate; Basophils % (A) 1 %; Eosinophils % (A) 3 %; Lymphocytes # (A) 0.1 k/uL (1.0-4.8); Lymphocytes % (A) 9 %; MCH 28.7 pg (25.0-35.0); MCHC 34.5 g/dL (31.0-37.0); Mean Platelet Volume 8.1; Microcytosis Slight; Monocytes # (A) 0.1 k/uL (0-1.0); Monocytes % (A) 6 %; Neutrophils # (A) 1.1 k/uL (1.3-7.7); Neutrophils % (A) 79 %; Poikilocytosis Slight; RBC 2.15 m/uL (4.30-5.90); RDW 20.5 % (11.5-15.5); WBC 1.5 k/uL (3.8-10.6)
[2023-12-11 03:53] LABS: ALT 79 U/L (4-49); AST 36 U/L (17-59); African American GFR (CKD) 34 (>60 ml/min/1.73 sqM); Albumin 3.3 g/dL (3.5-5.0); Albumin/Globulin Ratio 1.3; Alkaline Phosphatase 172 U/L (38-126); Anion Gap 4 mmol/L; Blood Urea Nitrogen 50 mg/dL (9-20); Calcium 8.5 mg/dL (8.4-10.2); Carbon Dioxide 21 mmol/L (22-30); Chloride 112 mmol/L (98-107); Globulin 2.5 g/dL; Glucose 88 mg/dL (74-99); Non-African American GFR(CKD) 30 (>60 ml/min/1.73 sqM); Potassium 4.3 mmol/L (3.5-5.1); Sodium 137 mmol/L (137-145); Total Protein 5.8 g/dL (6.3-8.2)
[2023-12-11 03:59] LABS: HCT 17.8 % (39.0-53.0); HGB 6.2 gm/dL (13.0-17.5)
[2023-12-11 04:02] LABS: Platelet Count 8 k/uL (150-450)
--- NOTE | 2023-12-11 06:12 | P.CNPUL ---
History of Present Illness Consult date: 12/11/23 Requesting physician: Kayley Torres Reason for consult: lung mass Chief complaint: Abdominal pain History of present illness: Patient is an 83-year-old male with past medical history significant for metastatic squamous cell carcinoma, recently diagnosed via left cervical lymph node biopsy performed on 10/16/2023. 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 He has significant cancer history including skin cancer involving his left temporal region that was previously resected, prostate cancer status post EBRT, primary myelofibrosis and splenomegaly. Patient also has a known right upper lobe lung nodule, measuring 2 cm in size. The mass is spiculated, and skin concerning for malignancy. Patient has not underwent biopsy of this lesion itself. He does follow in the pulmonary office with Dr. Conrad. Most recent PET scan (09/16/2023) concerning for diffuse metastatic disease including intense uptake within the right apical lesion, SUV value 12.44. Multiple left parotid region and posterior cervical neck lymphadenopathy suggestive for metastatic disease. Diffuse uptake scattered throughout the osseous structures with corresponding heterogeneity, concerning for osseous metastasis. Marked splenomegaly with hyperintense uptake at the inferior tip suggesting underlying splenic metastasis. Patient is reportedly undergoing splenic radiation treatments. Last treatment was Sunday per the patient. He does follow with medical oncologist Dr. Landa. Patient also has past medical history significant for COPD, oxygen dependence, obstructive sleep apnea, hypertension, coronary artery disease with previous coronary stents, chronic kidney disease, among other things. He presented to the emergency department on 12/09/2023 with left upper quadrant abdominal pain and jaundice. Pain rated 8/10 on a 10 point numerical scale. Appetite has been poor. Denies any nausea, vomiting. Reports 1 episode of diarrhea yesterday. No acute blood loss or melena or pale stools. Did recently undergo radiation to this area as stated above. Liver ultrasound did not show any acute abdominal process. Abdominal/pelvis CT did not show any definitive right upper quadrant acute process. Nonobstructive right renal calculus and right ureteropelvic junction calculi. No associated hydronephrosis. Splenomegaly. Infrarenal abdominal aortic aneurysm measuring up to 3.5 cm. CBC: WBC count one 1.5, hemoglobin 6.2, hematocrit 17.8, platelets 8000. CMP: Sodium 137, potassium 4.3, chloride 112, serum bicarb 21, BUN 50, creatinine 2.03, glucose 88. AST 36, ALT 79, ALP 172. Total bilirubin 5. Hepatitis panel nonreactive. Pancreatic enzymes WDL. Patient is status post 3 units PRBCs. Fecal occult negative. Patient currently lying in bed, on his left lateral side, on 2 L/min nasal cannula, in no acute respiratory distress. Chest x-ray redemonstrates the right upper lung pulmonary nodule. There is also a nodular density projecting over the inferior hilum unclear if this is summation artifact. No finding on prior PET/CT scan mentioned above. For this reason, we were asked to see this patient in pulmonary consultation. Denies any specific pulmonary complaints. He does chronically utilize home O2 as needed. Vitals are stable. Review of Systems REVIEW OF SYSTEMS: CONSTITUTIONAL: Admits weight loss, unsure of how much EYES: Denies change in vision. EARS, NOSE, MOUTH, THROAT: Denies headaches, denies sore throat. CARDIOVASCULAR: Denies chest pain, palpitations or syncopal episodes. RESPIRATORY: Denies shortness of breath, cough, congestion or hemoptysis. GASTROINTESTINAL:see HPI GENITOURINARY: Denies hematuria, denies infections. MUSKULOSKELETAL: Denies pain, denies swelling. INTEGUMENTARY: Denies rash, denies eczema. NEUROLOGICAL: Denies recent memory loss, no recent seizure activity. PSYCHIATRIC: Denies anxiety, denies depression. HEMATOLOGIC/LYMPHATIC: Denies anemia, denies enlarged lymph node Past Medical History Past Medical History: Cancer, COPD, Hypertension, Myocardial Infarction ([place]), Renal Disease, Sleep Apnea/CPAP/BIPAP Additional Past Medical History / Comment(s): Hx anemia, myelofibrosis, gastritis, colitis, abdominal pain/enlarged spleen, CKD, interstitial lung disease, pulmonary fibrosis, PE in 2012-pt cannot recall laterality, cannot tolerate Cpap, hx prostate cancer with radiation treatment, nephrolithiasis, marcelle hagn, compression fracture low back, bilateral elbow fractures with surgery, PUD, jaundiced as a child, TLINGIT & HAIDA bilaterally, myelofibrosis, squamous cell carinoma skin CA, lymphadenopathy. Last Myocardial Infarction Date:: January 2020 History of Any Multi-Drug Resistant Organisms: None Reported Date of last positivie culture/infection: October 26 2021 Past Surgical History: Heart Catheterization, Hernia Repair, Orthopedic Surgery Additional Past Surgical History / Comment(s): Prostate biopsy, R hip hemiarthroplasty, L hand partial amp of 2 fingers, L knee ACL repair, R knee arthroscopy, bilateral total elbow replacements per pt, bilateral cataract removals, L inguinal hernia repair, cardiac caths X2, EGD, colonoscopy, skin cancer removals, left ureteroscopy with laser lithotripsy. Past Anesthesia/Blood Transfusion Reactions: No Reported Reaction Date of Last Stent Placement:: January 2020. Past Psychological History: Anxiety, Depression Additional Psychological History / Comment(s): Pt resides alone, his spouse 05/2021. Pt uses a cane or walker. Has traveling nurse visits weekly, other help including PT visits Smoking Status: Former smoker Past Alcohol Use History: None Reported Additional Past Alcohol Use History / Comment(s): Started smoking in 1960 and quit in 2007. Past Drug Use History: None Reported - Past Family History Brother(s) Family Medical History: Cancer Additional Family Medical History / Comment(s): ONE BROTHER HAD LUNG CA & ANOTHER HAD MELANOMA. Brother just recently last week. Mother Family Medical History: AICD/Pacemaker Father Family Medical History: No Reported History Sister(s) Family Medical History: No Reported History Medications and Allergies Home Medications Medication Instructions Recorded Confirmed Type Pantoprazole Sodium [Protonix] 40 mg PO DAILY 03/08/16 12/10/23 History Vit C/E/Zn/Coppr/Lutein/Zeaxan 1 cap PO BID 12/12/18 12/10/23 History [Preservision Areds 2 Softgel] carvediloL [Coreg*] 12.5 mg PO BID 07/16/21 12/10/23 History LORazepam [Ativan] 0.5 mg PO BID 05/03/23 12/10/23 History Vitamin B Complex 1 cap PO HS 05/03/23 12/10/23 History amLODIPine [Norvasc] 5 mg PO BID 05/03/23 12/10/23 History cloNIDine 0.3 MG/24HR PATCH 1 patch TRANSDERM Q7D 05/03/23 12/10/23 History [Catapres-Tts 0.3MG Patch] HYDROcodone/APAP 7.5-325MG [[place] 1 tab PO Q6H PRN 10/08/23 12/10/23 History 7.5-325] Vitamin D3(Unknown Dose) 1 tab PO HS 12/10/23 12/10/23 History fentaNYL 75MCG/HR PATCH [Duragesic 1 patch TRANSDERM Q72H 12/10/23 12/10/23 History 75MCG/HR] Allergies Allergy/AdvReac Type Severity Reaction Status Date / Time alprazolam [From Xanax] AdvReac Confusion Verified 12/10/23 10:11 Physical Exam Vitals: Vital Signs Temp Pulse Pulse Resp BP BP Pulse Ox 12/11/23 02:00 98 F 68 16 102/42 99 12/10/23 23:23 98.2 F 67 16 136/49 98 12/10/23 21:29 98.1 F 68 14 125/53 98 12/10/23 21:27 98.2 F 66 16 106/46 98 12/10/23 20:55 98.2 F 74 16 112/63 98 12/10/23 20:00 98 F 72 14 116/48 100 12/10/23 14:00 97.9 F 71 18 127/52 99 12/10/23 07:37 98.1 F 76 17 103/47 98 Intake and Output 12/10/23 12/10/23 12/11/23 14:59 22:59 06:59 Intake Total 480 310 Output Total 800 Balance -320 310 Intake: Oral 480 Blood Product 0 310 Rc Irr As1 Unit 0 310 [id number] Output: Urine 800 Other: Voiding Method Bedside Commode Diaper # Voids 1 GENERAL EXAM: Alert, frail-appearing 83-year-old male, jaundiced, comfortable in no apparent distress. HEAD: Normocephalic and atraumatic EYES: Normal reaction of pupils, equal size. Icteric sclera NOSE: Clear with pink turbinates. THROAT: No erythema or exudates. NECK: No masses, no JVD. Cervical lymphadenopathy CHEST: No chest wall deformity. LUNGS: Equal air entry with no crackles, wheeze, rhonchi or dullness. On 2 L/min nasal cannula. No conversational dyspnea or accessory muscle use.. CVS: S1 and S2 normal with no audible murmur, regular rhythm. No extra heart sounds ABDOMEN: Abdomen is flat, splenomegaly, grimacing with palpation of left upper quadrant SPINE: No scoliosis or deformity SKIN: Jaundice CENTRAL NERVOUS SYSTEM: No focal deficits, tone is normal in all 4 extremities. EXTREMITIES: There is no peripheral edema, clubbing, or cyanosis. Peripheral pulses are intact. Results - Laboratory Findings CBC and BMP: 12/11/23 02:42 12/11/23 02:42 PT/INR, D-dimer PT 12.0 sec (10.0-12.5) 12/10/23 18:50 INR 1.1 (<1.2) 12/10/23 18:50 Abnormal lab findings: Abnormal Labs 12/09/23 12/09/23 12/09/23 15:49 15:49 19:50 WBC 2.4 L RBC 2.08 L Hgb 5.8 L* D Hct 16.0 L* MCV 76.8 L RDW 21.0 H Plt Count 21 L D Neutrophils # Lymphocytes # 0.2 L Chloride 109 H Carbon Dioxide 21 L BUN 50 H Creatinine 2.07 H Glucose 123 H Total Bilirubin 5.1 H Unconjugated Bilirubin ALT 83 H Alkaline Phosphatase 176 H Total Protein Albumin Urine Protein Calcium Oxalate Crystal Urine Mucus Crossmatch See Detail 12/10/23 12/10/23 12/10/23 11:10 11:10 16:15 WBC 1.7 L RBC 2.11 L Hgb 6.2 L* Hct 17.4 L* MCV RDW 21.2 H Plt Count 10 L* D Neutrophils # Lymphocytes # Chloride 111 H Carbon Dioxide 20 L BUN 52 H Creatinine 2.05 H Glucose 132 H Total Bilirubin 6.4 H Unconjugated Bilirubin 6.0 H ALT Alkaline Phosphatase Total Protein Albumin Urine Protein 1+ H Calcium Oxalate Crystal Rare H Urine Mucus Rare H Crossmatch 12/11/23 12/11/23 02:42 02:42 WBC 1.5 L RBC 2.15 L Hgb 6.2 L* Hct 17.8 L* MCV RDW 20.5 H Plt Count 8 L* Neutrophils # 1.1 L Lymphocytes # 0.1 L Chloride 112 H Carbon Dioxide 21 L BUN 50 H Creatinine 2.03 H Glucose Total Bilirubin 5.0 H Unconjugated Bilirubin ALT 79 H Alkaline Phosphatase 172 H Total Protein 5.8 L Albumin 3.3 L Urine Protein Calcium Oxalate Crystal Urine Mucus Crossmatch - Diagnostic Findings Chest x-ray: image reviewed Assessment and Plan Assessment: Abdominal pain, CT abd/pelvis noted, no acute intra-abdominal process identified. Jaundice, hyperbilirubinemia, and elevated LFTs Metastatic squamous cell carcinoma, recently diagnosed via left cervical lymph node biopsy performed on 10/16/2023, 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 Reportedly scheduled to start Libtayo on 12/14/2023 Right upper lobe FDG avid lung nodule, spiculated, measuring up to 2 CM is size, concerning for malignancy. Myelofibrosis with splenomegaly Severe pancytopenia Symptomatic anemia, status post 3 units PRBC transfusion Chronic kidney disease stage IV Chronic obstructive pulmonary disease, stable Chronic hypoxemic respiratory failure, normally maintained on 2 L/min nasal cannula at home Infrarenal abdominal aortic aneurysm, measuring up to 3.[address] History of coronary artery disease with previous coronary stents Hypertension History of prostate cancer status post EBRT Plan: Patient's medications, labs, chest x-ray reviewed Patient abdominal pain currently under better control with current analgesics including as needed [place]'s and Dilaudid. Medical oncology/hematology following, patient reportedly is scheduled to start Libtayo on 12/14/2023 Status post 3 units PRBCs. Consider platelet transfusion as well. Patient can continue to follow in the pulmonary office with Dr. Conrad on hospital discharge, as the patient denies any current active pulmonary concerns. I have personally seen and examined the patient, performed the documentation and the assessment and plan as written. Number of minutes spent on the visit:20 Time with Patient: Greater than 30
[2023-12-11] MEDS ORDERED: HYDROmorphone 1 MG/ML 1 ML SYRINGE IVP PRN (09:35)
[2023-12-11] MEDS: SENNOSIDES-DOCUSATE SODIUM 1 EACH TAB PO SCH (09:49)
[2023-12-11 10:38] LABS: Anisocytosis Moderate; Basophils % (A) 1 %; Eosinophils # (A) 0.1 k/uL (0-0.7); Eosinophils % (A) 3 %; HGB 7.1 gm/dL (13.0-17.5); Lymphocytes # (A) 0.2 k/uL (1.0-4.8); Lymphocytes % (A) 7 %; MCH 29.8 pg (25.0-35.0); MCHC 35.8 g/dL (31.0-37.0); MCV 83.4 fL (80.0-100.0); Mean Platelet Volume 8.2; Microcytosis Slight; Monocytes # (A) 0.2 k/uL (0-1.0); Monocytes % (A) 7 %; Neutrophils # (A) 1.7 k/uL (1.3-7.7); Neutrophils % (A) 80 %; Poikilocytosis Slight; RBC 2.37 m/uL (4.30-5.90); RDW 20.6 % (11.5-15.5); WBC 2.2 k/uL (3.8-10.6)
[2023-12-11 10:39] LABS: HCT 19.8 % (39.0-53.0); Platelet Count 14 k/uL (150-450)
--- NOTE | 2023-12-11 12:21 | CDI ---
Documentation Clarification Form Date: 12/11/2023 12:04:36 PM From: Dot Everett RN CCDS Phone: [phone] Admit Date: 12/09/2023 09:37:00 PM Patient Name: Sergey Ward Visit Number: [id number] Discharge Date: ATTENTION: The Clinical Documentation Specialists (CDI) and [facility] Coding Staff appreciate your assistance in clarifying documentation. Please respond to the clarification below the line at the bottom and electronically sign. The CDI & [facility] Coding staff will review the response and follow-up if needed. Please note: Queries are made part of the Legal Health Record. If you have any questions, please contact the author of this message via ITS. Provider: Kayley MCELROY Pancytopenia is documented 12/09, HP. Additional clarification regarding the etiology of pancytopenia is requested. History/Risk factors:83 year old male presents to the ED with progressive abdominal pain, not controlled with his pain regimen at home accompanied by decreased appetite and fatigue. Medical history: Newly diagnosed Squamous cell CA of head and neck, Myelofibrosis, splenomegaly- recent splenic radiation, COPD, Sleep apnea, anemia, CKD and Prostate CA. 12/09, HP. Clinical indicators: Labs: 12/08 Wbc 2.4; Rbc 2.08, Plt 21, Hgb 6 Oncology, 12/09: MF and splenomegaly, pancytopenia Recently completed radiation to spleen. Possibly the medullary capacity of the spleen compromised after radiation. Transfuse to keep Hgb 7 or higher. Patient received 2 units, his Hgb came back at 6.[address] ABD/PELVIS, 12/08: No definitive right upper quadrant acute process. Nonobstructing right renal calculus and right uteroplevic junction calculus. Splenomegaly. Treatment: Transfuse for platelets >10,000 or if symptomatic, no ASA, NSAIDS, anticoagulation. Transfuse to keep Hgb 7 or higher. 2 Units PRBC Consult: Oncology see above Please clarify the etiology of pancytopenia, if known: [ ] Pancytopenia due to radiation [ ] Pancytopenia due to other, please specify [ ] Anemia, please specify etiology [ ] Other condition, please specify ____ [ ] Unable to determine 12/10 Medicine note, Kayley Torres NP, Dr Ronal Hays MD. 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 (Template Last Revised: June 2020) MTDD
[2023-12-11] MEDS: LORazepam 1 MG TAB PO SCH (13:38)
[2023-12-11] MEDS: HYDROmorphone 1 MG/ML 1 ML SYRINGE IVP PRN (13:46)
--- NOTE | 2023-12-11 16:51 | P.PN ---
Subjective Progress Note Date: 12/11/23 Principal diagnosis: Pancytopenia. Hx of MF, squamous cell skin carcinoma In f/u today pt states very weak, urine is very dark, he is having diarrhea. Appetite is poor, no N,V. He is SOB with activity. No bleeding to report Objective - Vital Signs Vital signs: Vital Signs Temp 98.0 F 12/11/23 06:56 Pulse 82 12/11/23 06:56 Resp 16 12/11/23 06:56 BP 124/42 12/11/23 06:56 Pulse Ox 97 12/11/23 06:56 FiO2 Intake & Output 12/10/23 12/11/23 12/11/23 18:59 06:59 18:59 Intake Total 480 310 Output Total 400 400 Balance 80 -90 Intake: Oral 480 Blood Product 310 Rc Irr As1 Unit 310 [id number] Output: Urine 400 400 Other: Voiding Method Bedside Commode Diaper # Voids 2 # Bowel Movements 1 - Constitutional General appearance: Present: cooperative, no acute distress, thin - EENT Eyes: Present: EOMI, scleral icterus ENT: Present: hearing grossly normal - Respiratory Details: resp unlabored at rest - Cardiovascular Rhythm: regular - Peripheral edema leg Peripheral Edema: bilateral: None - Integumentary Integumentary: Present: jaundiced, pale - Neurologic Neurologic: Present: CNII-XII intact (grossly) - Musculoskeletal Musculoskeletal: Present: generalized weakness - Psychiatric Psychiatric: Present: A&O x's 3, appropriate affect - Labs CBC & Chem 7: 12/11/23 10:08 12/11/23 02:42 Labs: Abnormal Lab Results - Last 24 Hours (Table) 12/09/23 12/10/23 12/10/23 Range/Units 19:50 11:10 11:10 WBC 1.7 L (3.8-10.6) k/uL RBC 2.11 L (4.30-5.90) m/uL Hgb 6.2 L* (13.0-17.5) gm/dL Hct 17.4 L* (39.0-53.0) % RDW 21.2 H (11.5-15.5) % Plt Count 10 L* D (150-450) k/uL Neutrophils # (1.3-7.7) k/uL Lymphocytes # (1.0-4.8) k/uL Chloride 111 H (98-107) mmol/L Carbon Dioxide 20 L (22-30) mmol/L BUN 52 H (9-20) mg/dL Creatinine 2.05 H (0.66-1.25) mg/dL Glucose 132 H (74-99) mg/dL Total Bilirubin 6.4 H (0.2-1.3) mg/dL Unconjugated Bilirubin 6.0 H (0.0-1.1) mg/dL ALT (4-49) U/L Alkaline Phosphatase (38-126) U/L Total Protein (6.3-8.2) g/dL Albumin (3.5-5.0) g/dL Urine Protein (Negative) Calcium Oxalate Crystal (None) /hpf Urine Mucus (None) /hpf Crossmatch See Detail 12/10/23 12/11/23 12/11/23 Range/Units 16:15 02:42 02:42 WBC 1.5 L (3.8-10.6) k/uL RBC 2.15 L (4.30-5.90) m/uL Hgb 6.2 L* (13.0-17.5) gm/dL Hct 17.8 L* (39.0-53.0) % RDW 20.5 H (11.5-15.5) % Plt Count 8 L* (150-450) k/uL Neutrophils # 1.1 L (1.3-7.7) k/uL Lymphocytes # 0.1 L (1.0-4.8) k/uL Chloride 112 H (98-107) mmol/L Carbon Dioxide 21 L (22-30) mmol/L BUN 50 H (9-20) mg/dL Creatinine 2.03 H (0.66-1.25) mg/dL Glucose (74-99) mg/dL Total Bilirubin 5.0 H (0.2-1.3) mg/dL Unconjugated Bilirubin (0.0-1.1) mg/dL ALT 79 H (4-49) U/L Alkaline Phosphatase 172 H (38-126) U/L Total Protein 5.8 L (6.3-8.2) g/dL Albumin 3.3 L (3.5-5.0) g/dL Urine Protein 1+ H (Negative) Calcium Oxalate Crystal Rare H (None) /hpf Urine Mucus Rare H (None) /hpf Crossmatch - Imaging and Cardiology US - abdomen: report reviewed Assessment and Plan (1) Abdominal pain Current Visit: Yes Status: Acute Priority: High Code(s): R10.9 - UNSPECIFIED ABDOMINAL PAIN SNOMED Code(s): 11720793 (2) Jaundice Current Visit: Yes Status: Acute Priority: High Code(s): R17 - UNSPECIFIED JAUNDICE SNOMED Code(s): 95263700 (3) Splenomegaly Current Visit: Yes Status: Chronic Priority: Medium Code(s): R16.1 - SPLENOMEGALY, NOT ELSEWHERE CLASSIFIED SNOMED Code(s): 70659054 (4) Squamous cell carcinoma Current Visit: Yes Status: Acute Priority: High Code(s): MXE7737 - SNOMED Code(s): 040364011 (5) Myelofibrosis Current Visit: Yes Status: Chronic Priority: Medium Code(s): D75.81 - MYELOFIBROSIS SNOMED Code(s): 07985816 Plan: Abd pain, jaundice -Elevated LFTs, jaundice. Stable, slightly improved today -US liver, acute hep panel neg. Unconjugated bili significantly elevated, suspect medullary function of the liver is active causing liver dysfunction. Retic is normal level, inconsistent with sig anemia. Coags were normal. Infection work up so far neg. Sq cell carcinoma -newly diagnosed, oligometastatic disease to the lung -due to start libtayo on 12/13. Treatment delay if necessary until pt current co ndition adequately resolved MFand splenomegaly, pancytopenia -Recently completed radiation to spleen -Possibly the medullary capacity of the spleen compromised after radiation. Liver medullary compensation likely underlying cause for elevated LFTs based on work up. As the liver performs multiple functions, will see if blood counts and liver enzymes end up stabilizing. -Transfuse to keep Hgb 7 or higher. Pt received 3 units, his Hgb came back at 7.1 today. He is receiving another unit-this unit was ordered based on Hgb 6.2 from 0200. Hgb was 7.1 at 1000 draw, would not have transfused at that point -Plt 8,000 today. Transfuse 1 unit SDP. Transfuse for platelets >10,000 or if symptomatic, no asa, NSAIDs, anticoagulation. -WBC/ANC low but, safe range so far, no GCSF at this time. Pain 2/2 to malignancy -pt was on 75mcg of fentanyl on admit, this is being replaced today -Ok to cont with dilaudid for now, would prefer to transition to pt home meds and titrate as needed -monitor BM, add meds for prevention of narcotic induced constipation if needed. All of the above was discussed with daughter and son-in-law. Unclear right now how pt clinical course will evolve. Will see if pt transfusion dependence decreases over the next several days and if his liver enzymes stabilize and imp rove.
[2023-12-11] MEDS: VIT A,C & E-LUTEIN-MINERALS 1 EACH TAB PO SCH (17:39)
[2023-12-11] MEDS: DOCUSATE 100 MG CAP PO SCH (17:44)
[2023-12-11] MEDS: LIDOCAINE 4% PATCH TOPICAL SCH (17:46)
[2023-12-11 18:20] LABS: Hepatitis B Surface Antigen Nonreactive (Nonreactive)
[2023-12-11] MEDS: CHOLECALCIFEROL 25 MCG (1000 IU) TABLET PO SCH (20:22)
[2023-12-11] MEDS ORDERED: NON FORMULARY DRUG (Vitamin B Complex [Vitamin B Complex] 1 EACH Capsule) PO SCH (21:00)
[2023-12-12 01:38] VITALS: RESP 16
[2023-12-12 05:06] LABS: Anisocytosis Moderate; Basophils % (A) 1 %; Eosinophils % (A) 2 %; Hyperchromasia Slight; Lymphocytes # (A) 0.1 k/uL (1.0-4.8); Lymphocytes % (A) 8 %; MCH 29.6 pg (25.0-35.0); MCHC 35.6 g/dL (31.0-37.0); Microcytosis Slight; Monocytes # (A) 0.1 k/uL (0-1.0); Monocytes % (A) 9 %; Neutrophils # (A) 1.3 k/uL (1.3-7.7); Neutrophils % (A) 77 %; Poikilocytosis Moderate; RBC 2.29 m/uL (4.30-5.90); RDW 20.5 % (11.5-15.5); WBC 1.6 k/uL (3.8-10.6)
[2023-12-12 05:09] LABS: Platelet Count 12 k/uL (150-450)
[2023-12-12 05:11] LABS: HGB 6.8 gm/dL (13.0-17.5)
[2023-12-12 07:37] VITALS: BP 158/66; PULSE 86; TEMP 97.8
--- NOTE | 2023-12-12 10:26 | P.PN ---
Subjective Progress Note Date: 12/11/23 H&P Date: 12/10/23 Chief Complaint: Abdominal pain This is an 83-year-old gentleman with past medical history significant for newly diagnosed squamous cell CA of head /neck, history of myelofibrosis, splenomegaly-recent splenic radiation and multiple other medical issues presented to the ER with progressive abdominal pain not controlled with his pain regimen at home accompanied by decreased appetite, fatigue. Reports spontaneously voiding and having bowel movements. Denies chest pain, palpitations or shortness of breath. On admission hemoglobin 6, received 2 units of packed RBCs. Denies rectal bleeding. Hemoccult negative in the ER. Repeat labs ordered. CT of abdomen pelvis reported no definite right upper quadrant acute process nonobstructing right renal calculus and right ureteropelvic junction calculus, no hydronephrosis, splenomegaly, infrarenal abdominal aortic aneurysm measuring up to 3.5 cm. Chest x-ray reporting no acute cardiopulmonary disease/process, nodular density projecting over the inferior hilum unclear if this is summation artifact no finding on prior PET/CT 10/04/2023, right upper lung pulmonary nodule remains present. 12/11/2023. Hemoglobin 7.1, platelets 14, irradiated platelets and packed RBCs ordered and pending. Renal function unchanged, creatinine 2.03. T. bili decreased to 5 from 6.4, AST 36, ALT 79, alk phos 172 continues to have abdominal pain, left cervical and jaw pain. Denies nausea or vomiting. No bleeding .patient is weak, no appetite. Anxious and agitated by lab draws, new IV starts. Abnormal chest x-ray yesterday suspicious for malignancy, evaluated by pulmonary with recommendations noted and appreciated. Objective - Vital Signs Vital signs: Vital Signs Temp 98.2 F 12/11/23 13:53 Pulse 76 12/11/23 13:53 Resp 20 12/11/23 13:53 BP 123/54 12/11/23 13:53 Pulse Ox 98 12/11/23 13:53 FiO2 Intake & Output 12/10/23 12/11/23 12/11/23 18:59 06:59 18:59 Intake Total 480 310 Output Total 400 400 Balance 80 -90 Intake: Oral 480 Blood Product 310 Rc Irr As1 Unit 310 [id number] Output: Urine 400 400 Other: Voiding Method Bedside Commode Diaper # Voids 2 1 # Bowel Movements 1 - Exam PHYSICAL EXAM: VITAL SIGNS: [As above] GENERAL: Elderly gentleman lying in bed, alert and oriented x 3, uncomfortable, jaundice HEENT: Conjunctivae normal. Sclera icterus. NECK: Supple, no JVD. CARDIOVASCULAR: S1, S2 regular. No murmur RESPIRATION: Unlabored, equal air entry breath sounds diminished in the bases. ABDOMEN: Soft, mid to upper abdominal tenderness ,splenomegaly, +bs. : Urine darker. LEGS: No edema. no swelling NERVOUS SYSTEM: Cranial N 2-12 grossly normal. Skin: Warm and dry, no rash, jaundice - Labs CBC & Chem 7: 12/12/23 04:23 12/11/23 02:42 Labs: Abnormal Lab Results - Last 24 Hours (Table) 12/09/23 12/10/23 12/11/23 Range/Units 19:50 16:15 02:42 WBC (3.8-10.6) k/uL RBC (4.30-5.90) m/uL Hgb (13.0-17.5) gm/dL Hct (39.0-53.0) % RDW (11.5-15.5) % Plt Count (150-450) k/uL Neutrophils # (1.3-7.7) k/uL Lymphocytes # (1.0-4.8) k/uL Chloride 112 H (98-107) mmol/L Carbon Dioxide 21 L (22-30) mmol/L BUN 50 H (9-20) mg/dL Creatinine 2.03 H (0.66-1.25) mg/dL Total Bilirubin 5.0 H (0.2-1.3) mg/dL ALT 79 H (4-49) U/L Alkaline Phosphatase 172 H (38-126) U/L Total Protein 5.8 L (6.3-8.2) g/dL Albumin 3.3 L (3.5-5.0) g/dL Urine Protein 1+ H (Negative) Calcium Oxalate Crystal Rare H (None) /hpf Urine Mucus Rare H (None) /hpf Crossmatch See Detail 12/11/23 12/11/23 Range/Units 02:42 10:08 WBC 1.5 L 2.2 L (3.8-10.6) k/uL RBC 2.15 L 2.37 L (4.30-5.90) m/uL Hgb 6.2 L* 7.1 L (13.0-17.5) gm/dL Hct 17.8 L* 19.8 L* (39.0-53.0) % RDW 20.5 H 20.6 H (11.5-15.5) % Plt Count 8 L* 14 L* D (150-450) k/uL Neutrophils # 1.1 L (1.3-7.7) k/uL Lymphocytes # 0.1 L 0.2 L (1.0-4.8) k/uL Chloride (98-107) mmol/L Carbon Dioxide (22-30) mmol/L BUN (9-20) mg/dL Creatinine (0.66-1.25) mg/dL Total Bilirubin (0.2-1.3) mg/dL ALT (4-49) U/L Alkaline Phosphatase (38-126) U/L Total Protein (6.3-8.2) g/dL Albumin (3.5-5.0) g/dL Urine Protein (Negative) Calcium Oxalate Crystal (None) /hpf Urine Mucus (None) /hpf Crossmatch Assessment and Plan Assessment: Abdominal pain, jaundice, elevated LFTs, fatigue in a patient with history of myelofibrosis, newly diagnosed squamous cell CA of head /left neck (left cervical lymph node biopsy November 06) Acute on chronic anemia secondary to myelofibrosis, symptomatic, status post multiple units of irradiated packed RBCs 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 Suspicious for malignancy, pulmonary following. Hyperbilirubinemia Chronic renal failure,III, baseline around 2. COPD Interstitial lung disease, idiopathic pulmonary fibrosis Chronic hypoxic respiratory failure, wears 2 L nasal cannula O2 at home Infrarenal abdominal aortic aneurysm measuring up to 3.[address] Colitis, history of CAD, history of [place] Essential hypertension History of prostate cancer status postradiation Plan: Continue on current medication regimen ,monitoring and symptomatic treatment. Pain management. Fentanyl patch resumed. Lidocaine patch ordered to apply to left cervical area of pain. Scheduled to receive transfusion of another unit of irradiated packed RBCs and irradiated platelets. Prognosis poor. PCP discussed with [id number] poor prognosis and potential hospice. Maintain supportive care at this time. The impression and plan of care has been dictated as directed. : I performed a history and examination of this patient, discussed the same with the dictator. I agree with the dictator's note ,documented as a scribe. Any additional findings or plans will be noted.
[2023-12-12 11:58] VITALS: BMI 20.6
--- NOTE | 2023-12-12 12:02 | P.PN ---
Subjective Progress Note Date: 12/12/23 Patient is an 83-year-old male with past medical history significant for metastatic squamous cell carcinoma, recently diagnosed via left cervical lymph node biopsy performed on 10/16/2023. 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 He has significant cancer history including skin cancer involving his left temporal region that was previously resected, prostate cancer status post EBRT, primary myelofibrosis and splenomegaly. Patient also has a known right upper lobe lung nodule, measuring 2 cm in size. The mass is spiculated, and skin concerning for malignancy. Patient has not underwent biopsy of this lesion itself. He does follow in the pulmonary office with Dr. Conrad. Most recent PET scan (09/16/2023) concerning for diffuse metastatic disease including intense uptake within the right apical lesion, SUV value 12.44. Multiple left parotid region and posterio r cervical neck lymphadenopathy suggestive for metastatic disease. Diffuse uptake scattered throughout the osseous structures with corresponding heterogeneity, concerning for osseous metastasis. Marked splenomegaly with hyperintense uptake at the inferior tip suggesting underlying splenic metastas is. Patient is reportedly undergoing splenic radiation treatments. Last treatment was Sunday per the patient. He does follow with medical oncologist Dr. Landa. Patient also has past medical history significant for COPD, oxygen dependence, obstructive sleep apnea, hypertension, coronary artery disease with previous coronary stents, chronic kidney disease, among other things. He presented to the emergency department on 12/09/2023 with left upper quadrant abdominal pain and jaundice. Pain rated 8/10 on a 10 point numerical scale. Appetite has been poor. Denies any nausea, vomiting. Reports 1 episode of diarrhea yesterday. No acute blood loss or melena or pale stools. Did recently undergo radiation to this area as stated above. Liver ultrasound did not show any acute abdominal process. Abdominal/pelvis CT did not show any definitive right upper quadrant acute process. Nonobstructive right renal calculus and right ureteropelvic junction calculi. No associated hydronephrosis. Splenomegaly. Infrarenal abdominal aortic aneurysm measuring up to 3.5 cm. CBC: WBC count one 1.5, hemoglobin 6.2, hematocrit 17.8, platelets 8000. CMP: Sodium 137, potassium 4.3, chloride 112, serum bicarb 21, BUN 50, creatinine 2.03, glucose 88. AST 36, ALT 79, ALP 172. Total bilirubin 5. Hepatitis panel nonreactive. Pancreatic enzymes WDL. Patient is status post 3 units PRBCs. Fecal occult negative. Patient currently lying in bed, on his left lateral side, on 2 L/min nasal cannula, in no acute respiratory distress. Chest x-ray redemonstrates the right upper lung pulmonary nodule. There is also a nodular density projecting over the inferior hilum unclear if this is summation art ifact. No finding on prior PET/CT scan mentioned above. For this reason, we were asked to see this patient in pulmonary consultation. Denies any specific pulmonary complaints. He does chronically utilize home O2 as needed. Vitals are stable. The patient is seen today December 12, 2023 in follow-up on the regular medical floor. He is currently resting in bed. Awake and alert in no acute distress. He remains quite weak. He is having issues with abdominal discomfort. He is maintaining good O2 saturations in the 90s on room air. He is afebrile. Hemodynamically stable. He is status post 4 units of packed red blood cells and 1 unit of platelets thus far. Blood cultures pending. White count 1.6. Hemoglobin 6.8. Platelets 12,000. Objective - Vital Signs Vital signs: Vital Signs Temp 97.8 F 12/12/23 06:48 Pulse 86 12/12/23 06:48 Resp 16 12/12/23 06:48 BP 158/66 12/12/23 06:48 Pulse Ox 97 12/12/23 06:48 FiO2 Intake & Output 12/11/23 12/12/23 12/12/23 18:59 06:59 18:59 Intake Total 1359 291 Balance 1359 291 Intake: Oral 1080 Blood Product 279 291 Platelet Pheresis Pas 291 Psoralen Unit [id number] Rc Pheresis Irrad As 3 279 Unit [id number] Other: Voiding Method Toilet Toilet # Voids 1 3 # Bowel Movements 1 - Exam GENERAL EXAM: Alert, pale, jaundiced, frail-appearing 83-year-old male, on room air, in no apparent distress. HEAD: Normocephalic and atraumatic EYES: Normal reaction of pupils, equal size. Icteric sclera NOSE: Clear with pink turbinates. THROAT: No erythema or exudates. NECK: No masses, no JVD. Cervical lymphadenopathy CHEST: No chest wall deformity. LUNGS: Equal air entry with no crackles, wheeze, rhonchi or dullness. CVS: S1 and S2 normal with no audible murmur, regular rhythm. No extra heart sounds ABDOMEN: Abdomen is flat, splenomegaly, grimacing with palpation of left upper quadrant SPINE: No scoliosis or deformity SKIN: Jaundice CENTRAL NERVOUS SYSTEM: No focal deficits, tone is normal in all 4 extremities. EXTREMITIES: There is no peripheral edema, clubbing, or cyanosis. Peripheral pulses are intact. - Labs CBC & Chem 7: 12/12/23 04:23 12/11/23 02:42 Labs: Abnormal Lab Results - Last 24 Hours (Table) 12/09/23 12/12/23 Range/Units 19:50 04:23 WBC 1.6 L (3.8-10.6) k/uL RBC 2.29 L (4.30-5.90) m/uL Hgb 6.8 L* (13.0-17.5) gm/dL Hct 19.0 L* (39.0-53.0) % RDW 20.5 H (11.5-15.5) % Plt Count 12 L* (150-450) k/uL Lymphocytes # 0.1 L (1.0-4.8) k/uL Crossmatch See Detail Microbiology - Last 24 Hours (Table) 12/10/23 11:10 Blood Culture - Preliminary Blood Assessment and Plan Assessment: Abdominal pain, CT abd/pelvis noted, no acute intra-abdominal process identified Jaundice, hyperbilirubinemia, and elevated LFTs Metastatic squamous cell carcinoma, recently diagnosed via left cervical lymph node biopsy performed on 10/16/2023, 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 Reportedly scheduled to start Libtayo on 12/14/2023 Right upper lobe FDG avid lung nodule, spiculated, measuring up to 2 CM is size, concerning for malignancy Myelofibrosis with splenomegaly Severe pancytopenia Symptomatic anemia, status post 3 units PRBC transfusion Chronic kidney disease stage IV Chronic obstructive pulmonary disease, stable Chronic hypoxemic respiratory failure, normally maintained on 2 L/min nasal cannula at home Infrarenal abdominal aortic aneurysm, measuring up to 3.[address] History of coronary artery disease with previous coronary stents Hypertension History of prostate cancer status post EBRT Plan: The patient was seen and evaluated Labs and medications reviewed Medical oncology following Prognosis remains guarded DNR/DNI CODE STATUS We will continue to follow I have personally seen and examined the patient, performed the documentation and the assessment and plan as written. Number of minutes spent on the visit: 10.
--- NOTE | 2023-12-12 16:45 | P.PN ---
Subjective Progress Note Date: 12/12/23 H&P Date: 12/10/23 Chief Complaint: Abdominal pain This is an 83-year-old gentleman with past medical history significant for newly diagnosed squamous cell CA of head /neck, history of myelofibrosis, splenomegaly-recent splenic radiation and multiple other medical issues presented to the ER with progressive abdominal pain not controlled with his pain regimen at home accompanied by decreased appetite, fatigue. Reports spontaneously voiding and having bowel movements. Denies chest pain, palpitations or shortness of breath. On admission hemoglobin 6, received 2 units of packed RBCs. Denies rectal bleeding. Hemoccult negative in the ER. Repeat labs ordered. CT of abdomen pelvis reported no definite right upper quadrant acute process nonobstructing right renal calculus and right ureteropelvic junction calculus, no hydronephrosis, splenomegaly, infrarenal abdominal aortic aneurysm measuring up to 3.5 cm. Chest x-ray reporting no acute cardiopulmonary disease/process, nodular density projecting over the inferior hilum unclear if this is summation artifact no finding on prior PET/CT 10/04/2023, right upper lung pulmonary nodule remains present. 12/11/2023. Hemoglobin 7.1, platelets 14, irradiated platelets and packed RBCs ordered and pending. Renal function unchanged, creatinine 2.03. T. bili decreased to 5 from 6.4, AST 36, ALT 79, alk phos 172 continues to have abdominal pain, left cervical and jaw pain. Denies nausea or vomiting. No bleeding .patient is weak, no appetite. Anxious and agitated by lab draws, new IV starts. Abnormal chest x-ray yesterday suspicious for malignancy, evaluated by pulmonary with recommendations noted and appreciated. 12/12/2023 PCP, Dr. Goyal met with patient and his [id number] early this morning, regarding patient's decline, poor prognosis and they wish to proceed with hospice. Ongoing abdominal and left cervical pain. [facility] hospice consulted. Objective - Vital Signs Vital signs: Vital Signs Temp 97.8 F 12/12/23 06:48 Pulse 86 12/12/23 06:48 Resp 16 12/12/23 06:48 BP 158/66 12/12/23 06:48 Pulse Ox 97 12/12/23 06:48 FiO2 Intake & Output 12/11/23 12/12/23 12/12/23 18:59 06:59 18:59 Intake Total 1359 291 Balance 1353 291 Weight 68.946 kg Intake: Oral 1080 Blood Product 279 291 Platelet Pheresis Pas 291 Psoralen Unit [id number] Rc Pheresis Irrad As 3 279 Unit [id number] Other: Voiding Method Toilet Toilet # Voids 1 3 # Bowel Movements 1 - Exam PHYSICAL EXAM: VITAL SIGNS: [As above] GENERAL: Elderly gentleman lying in bed, alert and oriented x 3, uncomfortable, jaundice HEENT: Conjunctivae normal. Sclera icterus. NECK: Supple, no JVD. CARDIOVASCULAR: S1, S2 regular. No murmur RESPIRATION: Unlabored, equal air entry breath sounds diminished in the bases. ABDOMEN: Soft, mid to upper abdominal tenderness ,splenomegaly, +bs. : Urine dark. LEGS: No edema. no swelling NERVOUS SYSTEM: Cranial N 2-12 grossly normal. 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 Suspicious for malignancy, pulmonary following. Hyperbilirubinemia Chronic renal failure,III, baseline around 2. COPD Interstitial lung disease, idiopathic pulmonary fibrosis Chronic hypoxic respiratory failure, wears 2 L nasal cannula O2 at home Infrarenal abdominal aortic aneurysm measuring up to 3.[address] Colitis, history of CAD, history of [place] Essential hypertension History of prostate cancer status postradiation Plan: Continue on current medication regimen ,monitoring and symptomatic treatment. [facility] met with patient and and he will be open to [facility] hospice soon. Pain management. Prognosis poor. The impression and plan of care has been dictated as directed. : I performed a history and examination of this patient, discussed the same with the dictator. I agree with the dictator's note ,documented as a scribe. Any additional findings or plans will be noted.
== END 2023-12-12 16:43 | disposition hospice, inpatient (51) | DRG 948 ==
LOC: EC 14:08 → 5NMEDONC 21:37
PROVIDERS: ADMIT Family Medicine; ATTEND Family Medicine
PROC: 30233N1 Transfusion of Nonautologous Red Blood Cells into Peripheral Vein, Percutaneous Approach (ICD-10-PCS; 2023-12-09)
PROC: 30233R1 Transfusion of Nonautologous Platelets into Peripheral Vein, Percutaneous Approach (ICD-10-PCS; principal; 2023-12-12)
DX: G89.3 Neoplasm related pain (acute) (chronic) (principal); C96.9 Malignant neoplasm of lymphoid, hematopoietic and related tissue, unspecified; C78.01 Secondary malignant neoplasm of right lung; D47.1 Chronic myeloproliferative disease; J96.11 Chronic respiratory failure with hypoxia; N18.4 Chronic kidney disease, stage 4 (severe); N20.2 Calculus of kidney with calculus of ureter; D61.818 Other pancytopenia; J84.112 Idiopathic pulmonary fibrosis; Z99.81 Dependence on supplemental oxygen; J44.9 Chronic obstructive pulmonary disease, unspecified; I71.43 Infrarenal abdominal aortic aneurysm, without rupture; I12.9 Hypertensive chronic kidney disease with stage 1 through stage 4 chronic kidney disease, or unspecified chronic kidney disease; F32.A Depression, unspecified; I25.10 Atherosclerotic heart disease of native coronary artery without angina pectoris; G47.33 Obstructive sleep apnea (adult) (pediatric); F41.9 Anxiety disorder, unspecified; I25.2 Old myocardial infarction; Z95.5 Presence of coronary angioplasty implant and graft; Z85.46 Personal history of malignant neoplasm of prostate; Z86.711 Personal history of pulmonary embolism; Z79.899 Other long term (current) drug therapy; Z85.828 Personal history of other malignant neoplasm of skin; Z90.79 Acquired absence of other genital organ(s); Z87.891 Personal history of nicotine dependence; Z92.3 Personal history of irradiation; Z88.8 Allergy status to other drugs, medicaments and biological substances; Z87.19 Personal history of other diseases of the digestive system; Z80.1 Family history of malignant neoplasm of trachea, bronchus and lung; Z80.8 Family history of malignant neoplasm of other organs or systems
CPT/HCPCS: 36430; 96361; 96374; 96375; 96376; 99285

== ENCOUNTER 2023-12-12 11:31 | Inpatient (IN) | payer MEDICAID ==
[2023-12-12] MEDS ORDERED: ONDANSETRON 4 MG/2 ML VIAL IVP PRN (14:31)
[2023-12-12] MEDS: MORPHINE SULFATE (100 MG/2 ML) 100 MG in SODIUM CHLORIDE 0.9% 100 ML IV SCH (17:49)
[2023-12-12] MEDS: SCOPOLAMINE 1 MG/72 HR PATCH TRANSDERM SCH (17:53)
[2023-12-12] MEDS: HYDROmorphone 1 MG/ML 1 ML SYRINGE IVP PRN (17:53)
[2023-12-12] MEDS: LORazepam 2 MG/ML INJ IV PRN (20:01)
[2023-12-12 20:26] VITALS: RESP 12
[2023-12-12 20:28] VITALS: BP 154/65
[2023-12-13] MEDS ORDERED: HYDROmorphone 1 MG/ML 1 ML SYRINGE ONE (03:00)
[2023-12-13 04:03] VITALS: TEMP 98.2
[2023-12-13] MEDS: MORPHINE SULFATE 2 MG/ML SYRINGE IV PRN (09:32)
--- NOTE | 2023-12-13 11:57 | P.HPIM ---
History of Present Illness H&P Date: 12/13/23 12/13/2023 patient was admitted to [facility] hospice yesterday afternoon. Pain better controlled. Short of breath with exertion. (This is an 83-year-old gentleman with past medical history significant for newly diagnosed squamous cell CA of head /neck, history of myelofibrosis, splenomegaly-recent splenic radiation and multiple other medical issues presented to the ER with progressive abdominal pain not controlled with his pain regimen at home accompanied by decreased appetite, fatigue. Reports spo ntaneously voiding and having bowel movements. Denies chest pain, palpitations or shortness of breath. On admission hemoglobin 6, received 2 units of packed RBCs. Denies rectal bleeding. Hemoccult negative in the ER. Repeat labs ordered. CT of abdomen pelvis reported no definite right upper quadrant acute process nonobstructing right renal calculus and right ureteropelvic junction calculus, no hydronephrosis, splenomegaly, infrarenal abdominal aortic aneurysm measuring up to 3.5 cm. Chest x-ray reporting no acute cardiopulmonary disease/process, nodular density projecting over the inferior hilum unclear if this is summation artifact no finding on prior PET/CT 10/04/2023, right upper lung pulmonary nodule remains present. 12/11/2023. Hemoglobin 7.1, platelets 14, irradiated platelets and packed RBCs ordered and pending. Renal function unchanged, creatinine 2.03. T. bili decreased to 5 from 6.4, AST 36, ALT 79, alk phos 172 continues to have abdominal pain, left cervical and jaw pain. Denies nausea or vomiting. No bleeding .patient is weak, no appetite. Anxious and agitated by lab draws, new IV starts. Abnormal chest x-ray yesterday suspicious for malignancy, evaluated by pulmonary with recommendations noted and appreciated. 12/12/2023 PCP, Dr. Goyal met with patient and his [id number] early this morning, regarding patient's decline, poor prognosis and they wish to proceed with hospice. Ongoing abdominal and left cervical pain. [facility] hospice consulted.) Past Medical History Past Medical History: Cancer, COPD, Hypertension, Myocardial Infarction ([place]), Renal Disease, Sleep Apnea/CPAP/BIPAP Additional Past Medical History / Comment(s): Hx anemia, myelofibrosis, gastritis, colitis, abdominal pain/enlarged spleen, CKD, interstitial lung disease, pulmonary fibrosis, PE in 2012-pt cannot recall laterality, cannot tolerate Cpap, hx prostate cancer with radiation treatment, nephrolithiasis, migraines, compression fracture low back, bilateral elbow fractures with surgery, PUD, jaundiced as a child, [place] bilaterally, myelofibrosis, squamous cell carinoma skin CA, lymphadenopathy. Last Myocardial Infarction Date:: January 2020 History of Any Multi-Drug Resistant Organisms: None Reported Date of last positivie culture/infection: October 26 2021 Past Surgical History: Heart Catheterization, Hernia Repair, Orthopedic Surgery Additional Past Surgical History / Comment(s): Prostate biopsy, R hip hemiarthroplasty, L hand partial amp of 2 fingers, L knee ACL repair, R knee arthroscopy, bilateral total elbow replacements per pt, bilateral cataract removals, L inguinal hernia repair, cardiac caths X2, EGD, colonoscopy, skin cancer removals, left ureteroscopy with laser lithotripsy. Past Anesthesia/Blood Transfusion Reactions: No Reported Reaction Date of Last Stent Placement:: January 2020. Past Psychological History: Anxiety, Depression Additional Psychological History / Comment(s): Pt resides alone, his spouse 05/2021. Pt uses a cane or walker. Has traveling nurse visits weekly, other help including PT visits Smoking Status: Former smoker Past Alcohol Use History: None Reported Additional Past Alcohol Use History / Comment(s): Started smoking in 1960 and quit in 2007. Past Drug Use History: None Reported - Past Family History Brother(s) Family Medical History: Cancer Additional Family Medical History / Comment(s): ONE BROTHER HAD LUNG CA & ANOTHER HAD MELANOMA. Brother just recently last week. Mother Family Medical History: AICD/Pacemaker Father Family Medical History: No Reported History Sister(s) Family Medical History: No Reported History Medications and Allergies Home Medications Medication Instructions Recorded Confirmed Type Pantoprazole Sodium [Protonix] 40 mg PO DAILY 03/08/16 12/12/23 History Vit C/E/Zn/Coppr/Lutein/Zeaxan 1 cap PO BID 12/12/18 12/12/23 History [Preservision Areds 2 Softgel] carvediloL [Coreg*] 12.5 mg PO BID 07/16/21 12/12/23 History LORazepam [Ativan] 0.5 mg PO BID 05/03/23 12/12/23 History Vitamin B Complex 1 cap PO HS 05/03/23 12/12/23 History amLODIPine [Norvasc] 5 mg PO BID 05/03/23 12/12/23 History cloNIDine 0.3 MG/24HR PATCH 1 patch TRANSDERM Q7D 05/03/23 12/12/23 History [Catapres-Tts 0.3MG Patch] HYDROcodone/APAP 7.5-325MG [[place] 1 tab PO Q6H PRN 10/08/23 12/12/23 History 7.5-325] Vitamin D3(Unknown Dose) 1 tab PO HS 12/10/23 12/12/23 History fentaNYL 75MCG/HR PATCH [[place]ages[place] 1 patch TRANSDERM Q72H 12/10/23 12/12/23 History 75MCG/HR] Allergies Allergy/AdvReac Type Severity Reaction Status Date / Time alprazolam [From Xanax] AdvReac Confusion Verified 12/10/23 10:11 Physical Exam Vitals: Vital Signs Temp Resp BP 12/13/23 02:00 98.2 F 12/12/23 20:27 154/65 12/12/23 20:00 98.3 F 12 Intake and Output 12/12/23 12/13/23 12/13/23 22:59 06:59 14:59 Output Total 900 Balance -900 Output: Urine 900 Other: Voiding Method Urinal PHYSICAL EXAM: VITAL SIGNS: [As above] GENERAL: Elderly weak gentleman lying in bed, alert and oriented x 3, uncomfo rtable, jaundice HEENT: Conjunctivae normal. Sclera icterus. NECK: Supple, no JVD. CARDIOVASCULAR: S1, S2 regular. No murmur RESPIRATION: Unlabored, equal air entry breath sounds diminished in the bases. ABDOMEN: Soft, diffuse tenderness,splenomegaly, +bs. : Urine dark brice. LEGS: No edema. no swelling NERVOUS SYSTEM: Cranial N 2-12 grossly normal. 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 Suspicious for malignancy, pulmonary following. Hyperbilirubinemia Chronic renal failure,III, baseline around 2. COPD Interstitial lung disease, idiopathic pulmonary fibrosis Chronic hypoxic respiratory failure, wears 2 L nasal cannula O2 at home Infrarenal abdominal aortic aneurysm measuring up to 3.[address] Colitis, history of CAD, history of [place] Essential hypertension History of prostate cancer status postradiation No code, no CPR, no intubation [facility] Plan: [facility], pain management. The impression and plan of care has been dictated as directed. : I performed a history and examination of this patient, discussed the same with the dictator. I agree with the dictator's note ,documented as a scribe. Any additional findings or plans will be noted.
--- NOTE | 2023-12-14 12:23 | P.PN ---
Subjective Progress Note Date: 12/14/23 12/14/2023 maintained on [facility] hospice. Shortness of breath with minimal exertion. 12/13/2023 patient was admitted to [facility] hospice yesterday afternoon. Short of breath with minimal exertion. Abdominal pain currently rated at 7. Morphine drip ordered ,has not been initiated per staff, currently medicated with prn IVP morphine orders. Possibly transition to [facility]-discussed with hospice team. (This is an 83-year-old gentleman with past medical history significant for newly diagnosed squamous cell CA of head /neck, history of myelofibrosis, splenomegaly-recent splenic radiation and multiple other medical issues presented to the ER with progressive abdominal pain not controlled with his pain regimen at home accompanied by decreased appetite, fatigue. Reports spontaneously voiding and having bowel movements. Denies chest pain, palpitations or shortness of breath. On admission hemoglobin 6, received 2 units of packed RBCs. Denies rectal bleeding. Hemoccult negative in the ER. Repeat labs ordered. CT of abdomen pelvis reported no definite right upper quadrant acute process nonobstructing right renal calculus and right ureteropelvic junction calculus, no hydronephrosis, splenomegaly, infrarenal abdominal aortic aneurysm measuring up to 3.5 cm. Chest x-ray reporting no acute cardiopulmonary disease/process, nodular density projecting over the inferior hilum unclear if this is summation artifact no finding on prior PET/CT 10/04/2023, right upper lung pulmonary nodule remains present. 12/11/2023. Hemoglobin 7.1, platelets 14, irradiated platelets and packed RBCs ordered and pending. Renal function unchanged, creatinine 2.03. T. bili decreased to 5 from 6.4, AST 36, ALT 79, alk phos 172 continues to have abdominal pain, left cervical and jaw pain. Denies nausea or vomiting. No bleeding .patient is weak, no appetite. Anxious and agitated by lab draws, new IV starts. Abnormal chest x-ray yesterday suspicious for malignancy, evaluated by pulmonary with recommendations noted and appreciated. 12/12/2023 PCP, Dr. Goyal met with patient and his [id number] early this morning, regarding patient's decline, poor prognosis and they wish to proceed with hospice. Ongoing abdominal and left cervical pain. [facility] hospice consulted.) Objective - Vital Signs Vital signs: Vital Signs Temp 98.2 F 12/13/23 02:00 Pulse Resp 12 12/12/23 20:00 BP 154/65 12/12/23 20:27 Pulse Ox FiO2 Intake & Output 12/13/23 12/14/23 12/14/23 18:59 06:59 18:59 Intake Total 590 Output Total 500 Balance -500 590 Intake: Oral 590 Output: Urine 500 Other: Voiding Method Urinal Urinal Urinal # Voids 1 # Bowel Movements 1 - Exam GENERAL: Elderly weak gentleman lying in bed, alert,uncomfortable, jaundice HEENT: Conjunctivae normal. Sclera icterus. CARDIOVASCULAR: S1, S2 regular. No murmur RESPIRATION: breath sounds diminished in the bases. ABDOMEN: Soft, diffuse tenderness,splenomegaly,: Urine dark brice. LEGS: No edema. 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 Suspicious for malignancy, pulmonary following. Hyperbilirubinemia Chronic renal failure,III, baseline around 2. COPD Interstitial lung disease, idiopathic pulmonary fibrosis Chronic hypoxic respiratory failure, wears 2 L nasal cannula O2 at home Infrarenal abdominal aortic aneurysm measuring up to 3.[address] Colitis, history of CAD, history of [place] Essential hypertension History of prostate cancer status postradiation No code, no CPR, no intubation [facility] Plan: [facility], pain management. Possibly transition to [facility]-hospice team evaluating. The impression and plan of care has been dictated as directed. : I performed a history and examination of this patient, discussed the same with the dictator. I agree with the dictator's note ,documented as a scribe. Any additional findings or plans will be noted.
[2023-12-14] MEDS: diphenhydrAMINE 50 MG/ML 1 ML VIAL IVP PRN (18:45)
--- NOTE | 2023-12-15 09:23 | P.PN ---
Progress Note - Text Patient was briefly reevaluated today. He remains in [facility] here in the hospital. He is on a morphine drip. He is sleepy but arousable. He has scopolamine patch for discharge along with glycopyrrolate. Diphenhydramine for itching lorazepam for agitation. He denies any other complaints today. Will continue current treatments. Hospice is continuing their care. Most likely will go to the hospice house on Sunday.
[2023-12-15] MEDS ORDERED: SODIUM CHLORIDE 0.65% NASAL SPRAY 44 ML BTL NASAL PRN (14:12)
[2023-12-15] MEDS ORDERED: ARTIFICIAL TEARS-HYPROMELLOSE DROPS 15 ML BTL BOTH EYES PRN (14:12)
[2023-12-17] MEDS: GLYCOPYRROLATE 0.2 MG/ML 2 ML VIAL IVP PRN (02:45)
--- NOTE | 2023-12-17 13:02 | P.PN ---
Progress Note - Text Progress Note Date: 12/17/23 Patient remains in [facility] hospice. Family is at bedside. He is somewhat arousable but not to full consciousness at this time. Nursing has no questions or issues. Family was greeted and their questions answered. Patient will most likely pass within the next 24 hours
[2023-12-18] MEDS: ATROPINE OPHTH SOLN 1% 5ML BTL SUBLINGUAL PRN (08:46)
== END 2023-12-18 11:08 | disposition expired | DRG 951 ==
LOC: 5NMEDONC 16:51
PROVIDERS: ADMIT Family Medicine; ATTEND Family Medicine
DX: Z51.5 Encounter for palliative care (principal); D75.81 Myelofibrosis; D61.818 Other pancytopenia; J96.11 Chronic respiratory failure with hypoxia; D46.9 Myelodysplastic syndrome, unspecified; C76.0 Malignant neoplasm of head, face and neck; J44.9 Chronic obstructive pulmonary disease, unspecified; I10 Essential (primary) hypertension; I25.2 Old myocardial infarction; I12.9 Hypertensive chronic kidney disease with stage 1 through stage 4 chronic kidney disease, or unspecified chronic kidney disease; Z66 Do not resuscitate; I71.43 Infrarenal abdominal aortic aneurysm, without rupture; J84.112 Idiopathic pulmonary fibrosis; K52.9 Noninfective gastroenteritis and colitis, unspecified; Y84.2 Radiological procedure and radiotherapy as the cause of abnormal reaction of the patient, or of later complication, without mention of misadventure at the time of the procedure; F32.A Depression, unspecified; F41.9 Anxiety disorder, unspecified; Z60.2 Problems related to living alone; N18.30 Chronic kidney disease, stage 3 unspecified; I25.10 Atherosclerotic heart disease of native coronary artery without angina pectoris; D63.8 Anemia in other chronic diseases classified elsewhere; Z86.711 Personal history of pulmonary embolism; Z87.891 Personal history of nicotine dependence; Z79.899 Other long term (current) drug therapy; Z99.81 Dependence on supplemental oxygen; Z85.46 Personal history of malignant neoplasm of prostate